=== PATIENT | female | born 1965 | race Caucasian/White ===

== ENCOUNTER 2016-12-14 12:05 | Emergency (ER) | payer MEDICAID ==
[~2016-12-14] VITALS: Ht 152.4 cm; Wt 74.8 kg
[~2016-12-14 12:05] MED LIST: ALBUTEROL0.09 MG/Ac IH; ASPI-COR81 M1 PO; ASPIRIN 81MG TA81 MG PO; ATIVAN GENERIC0.5 MG PO; BUTRANS10 MCG/HR TD; COMBIVENT INH14.7 GM IN; DUONEB 3 MG/3 ML3 ML IH; FENOFIBRATE48 MG PO; FENOFIBRATE54 MG PO; FLEXERIL10 MG PO; HYDROCODONE BIT1 T39 PO; HYOSCYAMIN0.125 MG/M PO; LEXAPRO 20 MG T20 MG PO; LIPITOR40 M1 PO; NORCO 325 MG-51 TAB PO; PERCOCET 10 MG1 EACH PO; PERCOCET1 TAB PO; PHENERGAN25 M3 PO; PLAQUENIL200 MG PO; POTASSIUM CHLO20 ME2 PO; PRAVASTATIN 20M20 MG PO; PRILOSEC40 MG PO; REQUIP1 MG PO; SYNTHROID 0.1M0.1 MG PO; TIZANIDINE HCL 44 MG PO; TRAMADOL 50MG T50 MG PO; XANAX2 MG PO; ZEBETA5 MG PO
[2016-12-14] MEDS ORDERED: SIMVASTATIN10 MG PO (12:22)
[2016-12-14] MEDS ORDERED: FUROSEMIDE 40MG40 M1 PO (12:22)
[2016-12-14] MEDS ORDERED: LEVOTHYROXIN0.175 MG PO (12:22)
[2016-12-14 12:35] LABS: HEMOGLOBIN 14.1 g/dL (12.2-16.2); LYMPH # 3.5 K/mm3 (0.7-4.5); LYMPH % 34.8 % (10-50.0)
--- OUTSIDE RECORDS SUMMARY | 2016-12-14 12:40 | External Medical Summary Rpt ---
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 UNSPECIFIED 08-29-2013 [facility] LIAM SENSORINEUR AL HEARING LOSS 60193 SENSORINEUR 08-29-2013 M[facility] AL HEARING LIAM LOSS BILATERAL 2459 UNSPECIFIED 07-24-2013 [facility] LIAM THYROIDITIS 26782 HYPOCALCEMI 06-28-2013 MADHURI IBR A 486 PNEUMONIA, 06-28-2013 [facility] IBR ORGANISM UNSPECIFIED 07722 LEUKOCYTOSI 06-27-2013 KILEY STELLA S UNSPECIFIED V103 PERSONAL 06-27-2013 [facility] HISTORY OF MALIGNANT NEOPLASM OF BREAST 4928 OTHER 06-23-2013 [facility] EMPHYSEMA 55551 UNSPECIFIED 06-18-2013 [facility] N 89703 OTHER ACUTE 06-09-2013 [facility] PAIN HOSPITAL 0088 INTESTINAL 06-05-2013 [facility] INFECTION DUE TO OTHER ORGANISM NEC V4589 OTHER 06-05-2013 [facility] POSTSURGICA L STATUS OTHER V8801 ACQUIRED 06-05-2013 [facility] ABSENCE OF BOTH CERVIX AND UTERUS 81976 TB OF 05-14-2013 SHELLEY ANDREW SKIN&SUBCUT ANEOUS CELLULAR TISSUE-OTH TEST 5739 UNSPECIFIED 05-05-2013 [facility] DISORDER [facility]OSP OF LIVER INC 61183 ABDOMINAL 05-05-2013 [place] [facility], SERV GENERALIZED FOUNDATION 4011 ESSENTIAL 03-25-2013 ARTHUR SOREN HYPERTENSIO N, BENIGN 77105 ASTHMA, 03-25-2013 [facility] UNSPECIFIED SABIANISM , HOSP UNSPECIFIED STATUS 21471 HEMATURIA 03-25-2013 [facility] JAYCOB UNSPECIFIED V1251 PERSONAL 03-25-2013 [facility] HISTORY, SABIANISM VENOUS HOSP THROMBOSIS AND EMBOLISM V5866 LONG-TERM 03-25-2013 [facility] USE OF [facility]IANISM [facility] 5952 OTHER 03-13-2013 MAHNAZ DIGGS CHRONIC SOREN CYSTITIS 64090 UNSPECIFIED 03-13-2013 MAHNAZ DIGGS SOREN ARTHROPATHY SITE UNSPECIFIED 6259 UNSPEC 03-06-2013 HARPEL KELLY SYMPTOM ASSOC W/FEMALE GENITAL ORGANS 19485 UNSPECIFIED 03-06-2013 HARPEL KELLY RETENTION OF URINE 72727 OBSTRUCTIVE 03-04-2013 [facility] CLINIC BRONCHITIS WITHOUT EXACERBAT 7243 SCIATICA 03-04-2013 [facility] CL[facility]IC 10300 OTHER 03-04-2013 [facility] ABNORMAL CLINIC GLUCOSE 6271 POSTMENOPAU 02-28-2013 [facility] BLEEDING INC 6101 DIFFUSE 02-25-2013 HARPEL KELLY CYSTIC MASTOPATHY 6272 SYMPTOMATIC 02-25-2013 HARPE[facility] KELLY MENOPAUSAL/ FEMALE CLIMACTERIC STATES 66301 SENILE 02-25-2013 HARPEL KELLY OSTEOPOROSI S V7231 ROUTINE 02-25-2013 HARPEL KELLY GYNECOLOGIC AL EXAMINATION V1279 PERSONAL 02-17-2013 [facility] EMERGENCY DISEASES SERVICES DIGESTIVE DISEASE 1120 CANDIDIASIS 02-05-2013 CANDIDA TERAN OF MOUTH 17356 OTHER 01-29-2013 TREZEVANT CHRONIC [facility] PAIN [facility] 485 BRONCHOPNEU 01-29-2013 CANDIDA TERAN MONIA ORGANISM UNSPECIFIED 5569 UNSPECIFIED 01-29-2013 CANDIDA TERAN ULCERATIVE COLITIS 5641 IRRITABLE 01-29-2013 TREZEVANT BOWEL [facility] SYNDROME [facility] 5693 HEMORRHAGE 01-29-2013 YOSELIN NURY OF RECTUM IGN AND ANUS 51003 DISORDER OF 01-29-2013 TREZEVANT BONE AND [facility] CARTILAGE [facility] UNSPECIFIED 89115 DIARRHEA 01-29-2013 CANDIDA TERAN 67627 REFLUX 12-09-2012 [facility]O MOIRA ESOPHAGITIS 2411 NONTOXIC 11-20-2012 ELIZABET YARON MULTINODULA R GOITER 7936 NONSPEC ABN 11-18-2012 [facility]O MO[facility] FINDNG RAD & OTH EXAM ABDOMINAL AREA 4439 UNSPECIFIED 10-10-2012 NOEMI DIGGS PERIPHERAL THO VASCULAR DISEASE 52189 STOMATITIS 09-24-2012 SAVANNAHANDRIYFuad PARUL AND MUCOSITIS UNSPECIFIED 71517 UNSPECIFIED 09-12-2012 CANDIDA TERAN CONJUNCTIVI TIS 2352 NEOPLASM 09-09-2012 [facility] BEHAVIOR INC STOMACH INTEST&RECT 4553 EXTERNAL 09-09-2012 CAMARILLO MOIRA HEMORRHOIDS WITHOUT MENTION COMP 5533 DIAPHRAGMAT 09-09-2012 CAM[facility] MOIRA DAMARIS W/O MENTION OBSTRUCTION /GANGREN 5780 HEMATEMESIS 09-09-2012 [facility] 7934 NONSPECIFIC 09-09-2012 CAMARILLO MOIRA ABN FINDING RAD & OTH EXAM GI TRACT 9594 INJURY 08-28-2012 [place] OTHER AND RADIOLOGY UNSPECIFIED ASSOCIAT HAND EXCEPT FINGER 69810 ABDOMINAL 08-19-2012 CAMARILLO MOIRA PAIN, LEFT LOWER QUADRANT 3559 MONONEURITI 08-14-2012 [facility] UNSPECIFIED SITE 4359 UNSPECIFIED 08-14-2012 M[facility] TRANSIENT LIAM CEREBRAL ISCHEMIA 99096 DYSPHAGIA 08-14-2012 [facility] V7260 LABORATORY 07-22-2012 [facility] UNSPECIFIED 03707 OTHER 07-12-2012 HW[facility] FUNCTIONAL JUS DISORDERS OF INTESTINE 5409 ACUTE 07-11-2012 MARSHALLESE APPENDICITI AMBULETT & S WITHOUT AMBULANC MENTION PERITONITIS 5699 UNSPECIFIED 07-11-2012 [place] DISORDER RADIOLOGY OF ASSOCIAT INTESTINE 7222 DISPLCMT 07-10-2012 [facility] INC, INTERVERT MOTOR VEHICLE EXAMINER DISC SITE [facility] UNS W/O HOS MYELOPATHY 7859 OTHER 07-10-2012 [facility] INC, SYMPTOMS MOTOR VEHICLE EXAMINER INVOLVING [facility] CARDIOVASCU HOS LAR SYSTEM 47456 OTHER 06-20-[facility] NASAL ASSOCIAT CAVITY AND SINUSES 7820 DISTURBANCE 06-20-2012 [facility] SENSATION V711 OBSERVATION 06-20-2012[facility] FOR [facility] SUSPECTED ASSOCIAT MALIGNANT NEOPLASM 217 BENIGN 06-19-2012 THADDEUS MIN NEOPLASM OF BREAST 6100 SOLITARY 06-19-2012 JODIE CORNELIO CYST OF BREAST 6102 FIBROADENOS 06-19-2012 [facility] BREAST 6108 OTHER 06-19-2012 [facility] BENIGN MAMMARY DYSPLASIAS V6709 FOLLOW-UP 06-19-2012 JODIE CORNELIO EXAMINATION FOLLOWING OTHER SURGERY 7840 HEADACHE 06-11-2012 WAT[facility] LIAM 3343 OTHER 06-10-2012 TAMLEBRON TERAN CEREBELLAR ATAXIA 3532 CERVICAL 06-10-2012 TAMLEBRON TERAN ROOT LESIONS NOT ELSEWHERE CLASSIFIED 01222 VISION 06-10-2012 CANDIDA TERAN IMPAIR BOTH EYES IMPAIR LEVEL NFS 4371 OTH 06-08-2012 [facility] INC, GENERALIZED MOTOR VEHICLE EXAMINER ISCHEMIC [facility] CEREBROVASC HOS ULAR DISEASE 77728 OTHER 06-08-2012 [facility] INC, ALTERATION MOTOR VEHICLE EXAMINER OF [facility] CONSCIOUSNE HOS SS V1588 PERSONAL 06-08-2012 [facility] INC, HISTORY OF MOTOR VEHICLE EXAMINER FALL [facility] HOS 57523 OCCL&STENOS 06-06-2012[facility] MX&BILAT RADIOLOGY PRECERBRL ASSOCIAT ART W/O INFARCT 7930 NONSPECIFIC 05-28-2012[facility] ABN FNDNG RADIOLOGY RAD & OTH ASSOCIAT EXM SKULL & HEAD 3688 OTHER 05-24-2012 [facility] INC, SPECIFIED MOTOR VEHICLE EXAMINER VISUAL [facility] DISTURBANCE HOS S 90690 HEAD 05-24-2012 [facility] INC, INJURY, MOTOR VEHICLE EXAMINER UNSPECIFIED [facility] HOS 7873 FLATULENCE 05-01-2012 [facility] INC, ERUCTATION MOTOR VEHICLE EXAMINER AND GAS [facility] PAIN HOS 85320 ING DAMARIS 04-24-2012 CANDIDA TERAN W/O MENTION OBST/GANGRE N UNILAT/[place] [address] UNSPEC 04-16-2012 ALLRAN JR VENTRAL STELLA DAMARIS W/O MENTION OBST/GANGRE N E9278 OTH 04-10-2012 PICKARD DARA OVEREXERT&S TRENUOUS&RE PETITIVE MVMNTS/LOAD S 73372 ABDOMINAL 04-01-2012 CANDIDA TERAN PAIN RIGHT UPPER QUADRANT 56228 ABDOMINAL 04-01-2012 CANDIDA TERAN PAIN, PERIUMBILIC 46436 NEOPLASM OF 03-26-2012 [place] UNCERTAIN RADIOLOGY BEHAVIOR [place] ASSOCI[place] KID[place] [address] INSOMNIA 03-21-2012 CANDIDA TERAN UNSPECIFIED 29140 OTHER 03-14-2012 CANDIDA TERAN CHRONIC ALLERGIC CONJUNCTIVI TIS 8470 NECK SPRAIN 01-01-2012 [facility] 25348 EARLY 12-29-2011 [facility] 3531 LUMBOSACRAL 12-28-2011 RICHARD GRE PLEXUS LESIONS E9352 OTH 12-28-2011 RICHARD GRE OPIATES&REL NARCOTICS CAUS ADVRS EFF TX USE V5883 ENCOUNTER 12-28-2011 RICHARD GRE FOR THERAPEUTIC DRUG MONITORING V7109 OBSERVATION 12-28-2011 MILLENIUM OF OTHER LABORATORIE SUSPECTED S OF CA MENTAL CONDITION 6279 UNSPECIFIED 12-21-2011 HALEY HOLM MENOPAUSAL& POSTMENOPAU EARNEST DISORDER 34301 HYPERSOMNIA 11-21-2011 [facility] INC, WITH SLEEP MOTOR VEHICLE EXAMINER APNEA [facility] UNSPECIFIED HOS 15868 OSTEOARTHRO 11-07-2011 CANDIDA TERAN S UNSPEC WHETHER GEN/LOC SHLDR REGION 69548 OSTEOARTHRO 11-07-2011 CANDIDA TERAN SIS UNSPEC WHETHER GEN/LOC LOWER LEG 7177 CHONDROMALA 11-06-2011 PETTEY JAM ISIS OF [place] 03712 PLICA 11-06-2011 PETTEY JAM SYNDROME 07475 CHONDROMALA 11-03-2011 PETTEY JAM ISIS 7871 HEARTBURN 10-25-2011 JUAN-CO NKLIN NETO 10996 UNSPECIFIED 10-04-2011 [facility] INC, SLEEP MOTOR VEHICLE EXAMINER APNEA [facility] HOS 5368 DYSPEPSIA&O 09-25-2011 [facility] INC, THER SPEC MOTOR VEHICLE EXAMINER DISORDERS [facility] KE[facility] FUNCTION HOS STOMACH 5589 OTH&UNSPEC 09-25-2011 [facility] INC, NONINFECTIO MOTOR VEHICLE EXAMINER US [facility]SEL KE[facility] GASTROENTER HOS ITIS&COLITI S 2114 BENIGN 09-19-2011 PATHOLOGY & NEOPLASM OF CYTOLOGY RECTUM AND LAB ANAL CANAL 7821 RASH AND 09-14-2011 TAMLEBRON TERAN OTHER NONSPECIFIC SKIN ERUPTION 5789 UNSPECIFIED 08-23-2011 BONNIE HEMORRHAGE NKLIN NETO OF GASTROINTES TINAL TRACT 31733 SWELLING OF 08-08-2011 [place] [facility] RADIOLOGY ASSOCIAT 63316 CONTUSION 08-08-2011 [facility] 9593 INJURY 08-08-2011 [place] OTHER&UNSPE RADIOLOGY CIFIED ASSOCIAT [employer]BOW FOREARM&WRI ST 97892 REGULAR 07-03-2011 JESSE ASTIGMATISM GRE 7092 SCAR 05-31-2011 [facility] AND FIBROSIS OF SKIN 29638 INCONCLUSIV 05-31-2011 [place] [facility] E MAMMOGRAM SERV FOUNDATIO V134 PERSONAL 05-23-2011 LUIS DOTY HISTORY OF ARTHRITIS 9597 INJURY 05-06-2011 GISSEL KEYES OTHER&UNSPE HOSPITAL CIFIED KNEE LEG ANKLE&FOOT E8490 PLACE OF 05-06-2011 GISSEL KEYES OCCURRENCE, HOSPITAL HOME E8859 FALL FROM 05-06-2011 GISSEL KEYES OTHER HOSPITAL SLIPPING TRIPPING OR STUMBLING E8881 FALL 05-06-2011 [facility] KEYSE RESULTING HOSPITAL IN STRIKING AGAINST OTHER OBJECT 3540 CARPAL 04-07-2011 [facility] [place] TUNNEL ORTHOPAEDIC SYNDROME S PLC 94923 UNSPEC 04-07-2011 [facility] [place] DISORDERS ORTHOPAEDIC BURSAE&TEND S PLC ONS SHOULDER REGION 591 HYDRONEPHRO 03-24-2011 [facility] SIS SWAPNA 5951 CHRONIC 03-24-2011 [facility] CYSTITIS 70454 MICROSCOPIC 03-24-2011 [facility] 7906 OTHER 03-17-2011 [facility] ABNORMAL [facility] BLOOD HOLDING CHEMISTRY 96931 UNS ADVRS 03-17-2011 LAB [facility] EFF UNS RX AMERIC MEDICINAL&B HOLDING IOLOGICAL SBSTNC 37640 INCOMPLETE 02-17-2011 [facility] BLADDER SWAPNA EMPTYING 41359 CYSTOCELE 01-27-2011 ARLENE KEYES WITHOUT HOSPITAL MENTION UTERINE PROLAPSE MIDLN 6256 FEMALE 01-27-2011 [facility] STRESS HOSPITAL INCONTINENC E 18855 PRUNE BELLY 01-18-2011 [facility] 38619 CHRONIC 01-18-2011 LAB [facility] FATIGUE AMERIC SYNDROME HOLDING 5939 UNSPECIFIED 01-17-2011 [place] DISORDER RADIOLOGY OF KIDNEY ASSOCIAT AND URETER 93436 GROSS 01-17-2011 [facility] HEMATURIA HOSPITAL 5982 POSTOPERATI 01-13-2011 [facility] VE URETHRAL SWAPNA STRICTURE 85923 MIXED 01-11-2011 [facility] INCONTINENC HOSPITAL E URGE AND STRESS 38388 URGE 01-10-2011 [facility] INCONTINENC SWAPNA E 30556 COMPLETE 12-20-2010 [facility] [place] RUPTURE OF ORTHOPAEDIC ROTATOR S PLC CUFF 7919 OTHER 12-13-2010 [facility] NONSPECIFIC HOSPITAL FINDING EXAMINATION OF URINE 34943 TRIGGER 12-05-2010 [facility] [place] FINGER ORTHOPAEDIC S PLC 7102 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 V1581 PERS HX 11-01-2010 RINALDINI NONCOMPLIAN MELINDA CE W/MED TX PRS HAZARDS HLTH 90742 SPRAIN AND 10-20-2010 [employer] STRAIN OF UNSPECIFIED SITE OF WRIST 7226 DEGENERATIO 10-18-2010 RINALDINI N MELINDA INTERVERTEB RAL DISC SITE UNSPEC 7231 CERVICALGIA 09-26-2010 [facility] IMAGING ASS 50227 UNSPECIFIED 09-21-2010 [facility] VIRAL HOSPITAL INFECTION IN CCE & UNS SITE 94175 DEHYDRATION 09-21-2010 [facility] HOSPITAL 3384 CHRONIC 09-21-2010 [facility] PAIN NEUROLOGY SYNDROME CENTER SYLVIA 28596 SPRAIN AND 09-20-2010 RINALDINI STRAIN OF MELINDA UNSPECIFIED SITE OF HAND V571 OTHER 07-20-2010 [facility] PHYSICAL HOSPITAL THERAPY 72754 UNSPECIFIED 07-13-2010 [place] [facility] ABNORMAL SERV MAMMOGRAM FOUNDATIO 33921 LUMP OR 06-27-2010 [place] [facility] [place] IN SERV BREAST FOUNDATIO 41769 MAMMOGRAPHI 06-21-2010 [facility] MICROCALCIF ICATION 5272 SIALOADENIT 06-16-2010 RINALDINI IS MELINDA 22126 OTHER 06-16-2010 RINALDINI ABNORMAL MELINDA FINDING RADIOLOGICA L EXAM BREAST 64429 MASTODYNIA 05-24-2010 [facility] CYPRESS 9160 HIP THI 05-19-2010 RINALDINI LEG&ANK MELINDA ABRASION/FR ICION BURN W/O INF 70229 VOLUME 04-12-2010 RINALDINI DEPLETION MELINDA UNSPECIFIED 95735 DIVERTICULI 03-25-2010 RINALDINI TIS OF MELINDA COLON 80892 DIVERTICULO 03-17-2010 RINALDINI SIS OF MELINDA COLON 5931 HYPERTROPHY 03-17-2010 [place] OF KIDNEY RADIOLOGY ASSOCIAT 5968 OTHER 03-17-2010 [place] SPECIFIED RADIOLOGY DISORDERS ASSOCIAT OF BLADDER 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 EARNEST STATUS V8281 SPECIAL 07-23-2009 DORIAN OJEDA M.D.P.S.C. OSTEOPOROSI S 64511 SQUAMOUS 06-07-2009 [place] INST FOR BLEPHARITIS EYEHLTH & SURG PSC 28553 UNSPECIFIED 06-07-2009 [place] [facility]ST FOR TEAR FILM EYEHLTH & INSUFFICIEN SURG PSC CY 3569 UNSPEC 05-19-2009 JENNIFER HEREDIT&IDI KWADWO ALVARADO M.D.P.S.C. PERIPHERAL NEUROPATHY V570 CARE 05-13-2009 G[facility] INVOLVING HOSPITAL BREATHING EXERCISES V5862 LONG-TERM 05-13-2009 [facility] (CURRENT) HOSPITAL USE OF ANTIBIOTICS 91563 CHRONIC 05-05-2009 ZENON, OBSTRUCTIVE DEEPAK ASTHMA WITH EXACERBATIO N 4580 ORTHOSTATIC 05-04-2009 [facility] HOSPITAL HYPOTENSION 12847 OTHER 05-04-2009 [facility] CONVULSIONS HOSPITAL 7892 SPLENOMEGAL 05-04-2009 [place] Y [facility] ASSOC[facility]ATES PSC 6966 UNSPECIFIED 04-11-2009 [facility] MA PRURITIC HOSPITAL DISORDER 9134 ELB 04-11-2009 [facility] FORARM&WRST HOSPITAL INSECT BITE NONVENOMOUS W/O INF 8059 OPN FX UNS 03-15-2009 RINALDINI, PART VERT DEEPAK COLUMN W/O SP CRD INJURY 05533 PAIN IN 03-09-2009 KATJA C JOINT, TYRONE ANKLE AND FOOT 65770 SPONDYLOSIS 01-18-2009 [place] [facility] UNSPEC SERV SITE W/O FOUNDATIO MENTION MYELOPATHY 56516 PATHOLOGIC 01-07-2009 [facility] FRACTURE OF HOSPITAL VERTEBRAE 08673 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 REGION SPRAIN&STRA IN V5427 AFTERCARE 01-07-2009 [facility] HEALING HOSPITAL PATHOLOGIC FRACTURE VERTEBRAE 4658 ACUTE URIS 12-15-2008 RINALDINI, OF OTHER DEEPAK MULTIPLE SITES 91342 DISPLCMT 11-30-2008 [place] LUMBAR [facility] INTERVERT ASSOCIATES DISC W/O PSC MYELOPATHY 87236 STRESS 11-30-2008 [facility] FRACTURE OF HOSPITAL OTHER BONE 12512 ATHEROSCLER 11-06-2008 [facility] ART INC EXTREMITIES UNSPEC 514 PULMONARY 09-28-2008 [place] CONGESTION [facility] AND ASSOCIATES HYPOSTASIS PSC 2165 BENIGN 07-31-2008 PATHOLOGY & NEOPLASM OF CYTOLOGY SKIN OF LAB TRUNK EXCEPT SCROTUM E9064 BITE OF 07-31-2008 PATHOLOGY & NONVENOMOUS CYTOLOGY ARTHROPOD LAB 7079 CHRONIC 07-30-2008 [facility] ULCER OF HOSPITAL UNSPECIFIED SITE 7099 UNSPECIFIED 07-30-2008 RINALDINI, DISORDER DEEPAK OF SKIN&SUBCUT ANEOUS TISSUE 7210 CERVICAL 07-16-2008 [place] SPONDYLOSIS RADIOLOGY WITHOUT ASSOCIATES MYELOPATHY PSC V1272 PERSONAL 07-13-2008 [place] [facility] HISTORY OF SERV COLONIC FOUNDATIO POLYPS 98229 OTHER 06-18-2008 RINALDINI, SPECIFIED DEEPAK CIRCULATORY SYSTEM DISORDERS [id number] UNSPECIFIED 05-02-2008 [facility] ESOPHAGITIS [id number] POLYURIA 04-09-2008 [facility] [id number] OBESITY, 11-04-2007 [facility] UNSPECIFIED [facility] 47430 GEN 11-04-2007 RINTORSTENINI, OSTEOARTHRO DEEPAK SIS INVOLVING MULTIPLE SITES V074 HORMONE 08-23-2007 [facility] [place] V6700 FOLLOW-UP 08-23-2007 WOMEN'S EXAMINATION HEALTH [facility]LLOWING [facility] Medications Na ND Rx Da Fi Fi Am Da Di Ph RX Ph St me C No te ll ll ou ys ag ar # ys at rm s nt no ma ic us Or Da si cy ia de te s n re d ES 65 04 04 30 30 00 TO Ac CI 86 -0 -2 .0 00 TA ti TA 20 5- 8- 00 07 L ve LO 37 20 20 61 CA RI 50 17 17 16 RE AM 5 71 PH 20 AR MA MG CY TA #2 BL ET RO 43 04 04 30 30 00 TO Ac PI 54 -0 -2 .0 00 TA ti NI 70 3- 8- 00 07 L ve RO 27 20 20 60 CA LE 11 17 17 36 RE 0 28 HC PH L AR 2 MA MG CY TA #2 BL ET PO 62 04 04 52 30 00 TO Ac LY 17 -0 -2 7. 00 TA ti ET 50 3- 8- 00 07 L ve HY 44 20 20 0 62 CA LE 23 17 17 46 RE NE 1 73 PH GL AR YC MA OL CY 33 #2 50 PO WD SI 68 04 04 30 30 00 TO Ac MV 38 -0 -2 .0 00 TA ti 20 3- 8- 00 07 L ve TA 06 20 20 60 CA TI 60 17 17 36 RE N 5 30 10 PH AR MG MA CY TA BL #2 ET PO 00 03 04 60 30 00 TO Ac TA 78 -3 -2 .0 00 TA ti SS 11 0- 1- 00 07 L ve IU 52 20 20 62 CA M 60 17 17 41 RE CL 1 33 PH ER AR MA 10 CY ME #2 Q TA BL ET BR 00 03 04 60 30 00 TO Ac EO 17 -3 -2 .0 00 TA ti 30 0- 1- 00 07 L ve EL 88 20 20 62 CA LI 21 17 17 41 RE PT 0 28 A PH 20 AR 0- MA 25 CY MC #2 G IN H GA 43 03 04 40 1 00 TO Ac 38 -3 -2 00 00 TA ti LY 60 0- 1- .0 07 L ve TE 09 20 20 00 62 CA -G 01 17 17 41 RE 9 30 SO PH RAUL AR TI MA ON CY #2 LE 00 03 04 30 30 00 TO Ac VO 37 -3 -2 .0 00 TA ti TH 81 0- 1- 00 07 L ve YR 81 20 20 62 CA OX 71 17 17 41 RE IN 0 27 E PH 17 AR 5 MA MC CY G TA #2 BL ET FU 00 03 04 30 30 00 TO RO 37 -3 -2 .0 00 TA ti SE 80 0- 1- 00 07 L ve WV 21 20 20 62 CA DE 61 17 17 41 RE 0 32 40 PH AR MG MA CY TA BL #2 ET ES 00 03 04 30 30 00 TO OM 37 -2 -1 .0 00 TA ti EP 82 0- 4- 00 07 L ve RA 35 20 20 62 CA ZO 19 17 17 17 RE LE 3 42 PH MA AR G MA DR CY 40 #2 MG CA P DI 00 03 04 12 30 00 TO CY 37 -1 -0 0. 00 TA ti CL 81 7- 7- 00 07 L ve OM 62 20 20 0 62 CA IN 00 17 17 14 RE E 1 33 20 PH AR MG MA CY TA BL #2 ET ON 00 03 04 24 8 00 TO DA 78 -1 -0 .0 00 TA ti NS 15 7- 7- 00 07 L ve ET 23 20 20 62 CA RO 96 17 17 14 RE N 4 34 OD PH T AR 8 MA MG CY TA #2 BL ET TR 16 03 04 90 30 00 TO AM 71 -1 -0 .0 00 TA ti AD 40 8- 7- 00 07 L ve OL 48 20 20 60 CA 10 17 17 11 RE HC 2 41 L PH 50 AR MA MG CY TA #2 BL ET LO 00 03 03 90 30 00 TO RA 59 -1 -3 .0 00 TA ti ZE 10 0- 1- 00 07 L ve PA 24 20 20 61 CA M 11 17 17 16 RE 1 0 76 MG PH AR TA MA BL CY ET #2 WV 00 03 03 30 30 00 TO RT 09 -1 -3 .0 00 TA ti AZ 37 0- 1- 00 07 L ve AP 20 20 20 61 CA IN 65 17 17 16 RE E 6 77 15 PH AR MG MA CY TA BL #2 ET FU 00 03 03 30 30 00 TO RO 37 -0 -2 .0 00 TA ti SE 80 1- 4- 00 07 L ve WV 20 20 20 61 CA DE 81 17 17 00 RE 0 40 20 PH AR MG MA CY TA BL #2 ET ES 65 03 03 30 30 00 TO CI 86 -0 -2 .0 00 TA ti TA 20 1- 4- 00 07 L ve LO 37 20 20 60 CA RI 50 17 17 36 RE AM 5 29 PH 20 AR MA MG CY TA #2 BL ET LE 00 03 03 30 30 00 TO Ac VO 37 -0 -2 .0 00 TA ti TH 81 1- 4- 00 07 L ve YR 80 20 20 59 CA OX 91 17 17 90 RE IN 0 97 E PH 10 AR 0 MA MC CY G TA #2 BL ET CY 00 03 03 90 30 00 TO CL 37 -0 -2 .0 00 TA ti OB 80 1- 4- 00 07 L ve EN 75 20 20 60 CA ZA 11 17 17 36 RE RI 0 31 IN PH E AR 10 MA CY MG #2 TA BL ET RO 43 03 03 30 30 00 TO PI 54 -0 -2 .0 00 TA ti NI 70 1- 4- 00 07 L ve RO 27 20 20 60 CA LE 11 17 17 26 RE 0 92 HC PH L AR 2 MA MG CY TA #2 BL ET FL 00 03 03 15 30 00 TO ON 13 -0 -2 .8 00 TA ti 50 1- 4- 00 07 L ve E 57 20 20 60 CA AL 60 17 17 36 RE LE 3 33 RG PH Y AR RL MA F CY 50 #2 MC G SP R SP 00 03 03 30 30 00 TO IR 59 -0 -2 .0 00 TA ti IV 70 1- 4- 00 07 L ve A 07 20 20 60 CA 18 54 17 17 21 RE 1 50 MC PH G AR CP MA -H CY AN DI #2 PEREZ LE R 69 02 03 8. 28 00 TO T 45 -2 -1 00 00 TA ti D2 20 2- 7- 0 07 L ve 15 20 20 55 CA 1. 12 17 17 52 RE 25 0 59 PH MG AR MA (5 CY 0, 00 #2 0 UN IT ) VE 00 02 03 18 16 00 TO NT 17 -2 -1 .0 00 TA ti OL 30 2- 7- 00 07 L ve IN 68 20 20 59 CA 22 17 17 56 RE HF 0 91 A PH 90 AR MA MC CY G IN #2 PEREZ LE R DU 00 02 03 13 30 00 TO LE 08 -2 -1 .0 00 TA ti RA 54 2- 7- 00 07 L ve 61 20 20 60 CA 20 00 17 17 07 RE 0 1 88 MC PH G/ AR 5 MA MC CY G IN #2 PEREZ LE R LO 00 02 03 90 30 00 TO RA 59 -0 -1 .0 00 TA ti ZE 10 7- 0- 00 07 L ve PA 24 20 20 61 CA M 11 17 17 16 RE 1 0 76 MG PH AR TA MA BL CY ET #2 ES 31 02 03 30 30 00 TO Ac OM 72 -1 -1 .0 00 TA ti EP 20 0- 0- 00 07 L ve RA 57 20 20 60 CA ZO 31 17 17 07 RE LE 0 89 PH MA AR G MA DR CY 40 #2 MG CA P WV 00 02 03 30 30 00 TO Ac RT 09 -0 -1 .0 00 TA ti AZ 37 7- 0- 00 07 L ve AP 20 20 20 61 CA IN 65 17 17 16 RE E 6 77 15 PH AR MG MA CY TA BL #2 ET LE 00 02 03 30 30 00 TO Ac VO 37 -1 -1 .0 00 TA ti TH 81 5- 0- 00 07 L ve YR 81 20 20 61 CA OX 31 17 17 38 RE IN 0 98 E PH 12 AR 5 MA MC CY G TA #2 BL ET TR 16 02 03 90 30 00 TO Ac AM 71 -1 -1 .0 00 TA ti AD 40 4- 0- 00 07 L ve OL 48 20 20 60 CA 10 17 17 11 RE HC 2 41 L PH 50 AR MA MG CY TA #2 BL ET SI 68 02 03 30 30 00 TO Ac MV 38 -1 -1 .0 00 TA ti 20 4- 0- 00 07 L ve TA 06 20 20 60 CA TI 60 17 17 07 RE N 5 87 10 PH AR MG MA CY TA BL #2 ET RO 43 01 02 30 30 00 TO Ac PI 54 -3 -2 .0 00 TA ti NI 70 1- 4- 00 07 L ve RO 27 20 20 60 CA LE 11 17 17 26 RE 0 92 HC PH L AR 2 MA MG CY TA #2 BL ET FL 00 01 02 15 30 00 TO Ac ON 13 -3 -2 .8 00 TA ti 50 1- 4- 00 07 L ve E 57 20 20 60 CA AL 60 17 17 36 RE LE 3 33 RG PH Y AR RL MA F CY 50 #2 MC G SP R VE 00 01 02 18 16 00 TO Ac NT 17 -3 -2 .0 00 TA ti OL 30 1- 4- 00 07 L ve IN 68 20 20 59 CA 22 17 17 56 RE HF 0 91 A PH 90 AR MA MC CY G IN #2 PEREZ LE R CY 00 01 02 90 30 00 TO CL 37 -3 -2 .0 00 TA ti OB 80 1- 4- 00 07 L ve EN 75 20 20 60 CA ZA 11 17 17 36 RE RI 0 31 IN PH E AR 10 MA CY MG #2 TA BL ET FU 00 01 02 30 30 00 TO RO 78 -3 -2 .0 00 TA ti SE 11 1- 4- 00 07 L ve WV 81 20 20 61 CA DE 81 17 17 00 RE 0 40 20 PH AR MG MA CY TA BL #2 ET SP 00 02 30 30 00 TO IR 59 -3 -2 .0 00 TA ti IV 70 1- 4- 00 07 L ve A 07 20 20 60 CA 18 54 17 17 21 RE 1 50 MC PH G AR CP MA -H CY AN DI #2 PEREZ LE R EN 58 01 02 3. 28 00 AC BR 40 -3 -2 91 00 CR ti EL 60 0- 4- 9 00 ED ve 43 20 20 87 O 50 50 17 17 12 HE 4 60 AL MG TH /M L GR SY OU RI P, NG E IN C. ES 65 01 02 30 30 00 TO CI 86 -3 -2 .0 00 TA ti TA 20 1- 4- 00 07 L ve LO 37 20 20 60 CA RI 50 17 17 36 RE AM 5 29 PH 20 AR MA MG CY TA #2 BL ET DU 00 01 02 13 30 00 TO LE 08 -1 -1 .0 00 TA ti RA 54 4- 0- 00 07 L ve 61 20 20 60 CA 20 00 17 17 07 RE 0 1 88 MC PH G/ AR 5 MA MC CY G IN #2 PEREZ LE R LE 00 02 30 30 00 TO VO 37 -1 -1 .0 00 TA ti TH 81 4- 0- 00 07 L ve YR 80 20 20 59 CA OX 91 17 17 90 RE IN 0 97 E PH 10 AR 0 MA MC CY G TA #2 BL ET ES 31 02 30 30 00 TO OM 72 -1 -1 .0 00 TA ti EP 20 4- 0- 00 07 L ve RA 57 20 20 60 CA ZO 31 17 17 07 RE LE 0 89 PH MA AR G MA DR CY 40 #2 MG CA P SI 55 01 02 30 30 00 TO MV 11 -1 -1 .0 00 TA ti 10 4- 0- 00 07 L ve TA 19 20 20 60 CA TI 83 17 17 07 RE N 0 87 10 PH AR MG MA CY TA BL #2 ET CY 00 01 02 90 30 00 TO Ac CL 37 -0 -0 .0 00 TA ti OB 80 3- 3- 00 07 L ve EN 75 20 20 60 CA ZA 11 17 17 36 RE RI 0 31 IN PH E AR 10 MA CY MG #2 TA BL ET LO 00 01 02 90 30 00 TO Ac RA 59 -0 -0 .0 00 TA ti ZE 10 4- 3- 00 07 L ve PA 24 20 20 60 CA M 11 17 17 38 RE 1 0 47 MG PH AR TA MA BL CY ET #2 AZ 50 01 02 6. 5 00 TO Ac IT 11 -0 -0 00 00 TA ti HR 10 3- 3- 0 07 L ve OM 78 20 20 60 CA YC 75 17 17 36 RE IN 1 35 PH 25 AR 0 MA MG CY TA #2 BL ET FU 00 01 02 30 30 00 TO Ac RO 78 -0 -0 .0 00 TA ti SE 11 3- 3- 00 07 L ve WV 81 20 20 60 CA DE 81 17 17 36 RE 0 34 20 PH AR MG MA CY TA BL #2 ET VE 00 01 02 18 16 00 TO Ac NT 17 -0 -0 .0 00 TA ti OL 30 3- 3- 00 07 L ve IN 68 20 20 60 CA 22 17 17 36 RE HF 0 26 A PH 90 AR MA MC CY G IN #2 PEREZ LE R ES 65 01 02 30 30 00 TO Ac CI 86 -0 -0 .0 00 TA ti TA 20 3- 3- 00 07 L ve LO 37 20 20 60 CA RI 50 17 17 36 RE AM 5 29 PH 20 AR MA MG CY TA #2 BL ET FL 00 01 02 15 30 00 TO Ac ON 13 -0 -0 .8 00 TA ti 50 3- 3- 00 07 L ve E 57 20 20 60 CA AL 60 17 17 36 RE LE 3 33 RG PH Y AR RL MA F CY 50 #2 MC G SP R NY 50 01 02 48 [address] 38 -0 -0 0. 00 TA ti AT 30 3- 3- 00 07 L ve IN 58 20 20 0 60 CA 71 17 17 36 RE 10 6 36 0, PH 00 AR 0 MA UN CY IT /M #2 L MARKS SP TR 16 12 01 90 30 00 TO Ac AM 71 -2 -2 .0 00 TA ti AD 40 0- 0- 00 07 L ve OL 48 20 20 60 CA 10 16 17 11 RE HC 2 41 L PH 50 AR MA MG CY TA #2 BL ET RO 43 12 30 30 00 TO PI 54 -2 -2 .0 00 TA ti NI 70 8- 0- 00 07 L ve RO 27 20 20 60 CA LE 11 16 17 26 RE 0 92 HC PH L AR 2 MA MG CY TA #2 BL ET EN 58 12 01 3. 28 00 AC Ac BR 40 -2 -2 91 00 CR ti EL 60 7- 0- 9 00 ED ve 43 20 20 87 O 50 50 16 17 12 HE 4 60 AL MG TH /M L GR SY OU RI P, NG E IN C. SP 00 12 30 30 00 TO IR 59 -2 -2 .0 00 TA ti IV 70 7- 0- 00 07 L ve A 07 20 20 60 CA 18 54 16 17 21 RE 1 50 MC PH G AR CP MA -H CY AN DI #2 PEREZ LE R SI 55 12 09 11 30 00 TO MV 11 -1 -1 .0 00 TA ti 10 9- 3- 00 07 L ve TA 19 20 20 60 CA TI 83 16 17 07 RE N 0 87 10 PH AR MG MA CY TA BL #2 ET DU 00 12 01 13 30 00 TO LE 08 -1 -1 .0 00 TA ti RA 54 9- 3- 00 07 L ve 61 20 20 60 CA 20 00 16 17 07 RE 0 1 88 MC PH G/ AR 5 MA MC CY G IN #2 PEREZ LE R ES 31 12 30 30 00 TO OM 72 -1 -1 .0 00 TA ti EP 20 9- 3- 00 07 L ve RA 57 20 20 60 CA ZO 31 16 17 07 RE LE 0 89 PH MA AR G MA DR CY 40 #2 MG CA P LE 00 12 30 30 00 TO VO 37 -1 -0 .0 00 TA ti TH 81 2- 9- 00 07 L ve YR 80 20 20 59 CA OX 91 16 17 90 RE IN 0 97 E PH 10 AR 0 MA MC CY G TA #2 BL ET 16 09 10 10 36 30 YO 24 No Ac 25 -2 -2 0. UR 18 t ti 20 6- 8- 00 0 Av ve 54 20 20 0 PH ai 76 11 11 AR la 6 MA bl CY e CL 00 10 10 2 45 30 CA 68 TA Ac ON 22 -1 -1 .0 RL 72 MA ti AZ 83 1- 1- 00 IS 22 RE ve EP 00 20 20 LE N AM 45 11 [address] LEROY UG T MG CO TA MP BL AN ET Y CI 57 10 10 2 15 30 CA 68 TA Ac TA 66 -1 -1 .0 RL 72 MA ti LO 40 1- 1- 00 IS 24 RE ve RI 50 20 20 LE N AM 91 [address] LEROY HB UG T R 40 CO MP MG AN Y TA BL ET 00 07 09 3 14 20 CA 68 No Ac 59 -2 -3 .6 RL 40 t ti 70 5- 0- 99 IS 06 Av ve 01 20 20 LE ai 31 11 11 la 4 bl UG e CO MP AN Y KE 00 09 09 0 20 5 CA 68 TA Ac TO 09 -2 -2 .0 RL 65 MA ti RO 30 6- 6- 00 IS 74 RE ve LA 31 20 20 LE N C 40 11 [address] LEROY UG T MG CO TA MP BL AN ET Y 16 09 09 10 36 30 YO 24 No Ac 25 -2 -2 0. UR 18 t ti 20 6- 6- 00 0 Av ve 54 20 20 0 PH ai 76 11 11 AR la 6 MA bl CY e CL 16 09 09 0 90 30 CA 68 TA Ac ON 72 -1 -1 .0 RL 62 MA ti AZ 90 6- 6- 00 IS 23 RE ve EP 13 20 20 LE N AM 60 [address] LEROY 0. UG T 5 MG CO MP TA AN BL Y ET 00 07 09 3 14 20 CA 68 No Ac 59 -2 -1 .6 RL 40 t ti 70 5- 2- 99 IS 06 Av ve 01 20 20 LE ai 31 [address] bl UG e CO MP AN Y CI 57 09 09 0 15 30 CA 68 TA Ac TA 66 -0 -0 .0 RL 58 MA ti LO 40 7- 7- 00 IS 20 RE ve RI 50 20 20 LE N AM 91 [address] LEROY HB UG T R 40 CO MP MG AN Y TA BL ET CI 57 09 09 0 2. 4 CA 68 TA Ac TA 66 -0 -0 00 RL 56 MA ti LO 40 1- 1- 0 IS 20 RE ve RI 50 20 20 LE N AM 88 [address] LEROY HB UG T R 20 CO MP MG AN Y TA BL ET RI 37 08 08 3 56 28 CA 68 TA Ac IL 00 -2 -2 .0 RL 54 MA ti OS 00 6 6 00 IS 12 RE ve EC 45 20 20 LE N 50 11 [address] LEROY C UG T 20 .6 CO MP MG AN Y TA BL ET 16 09 08 10 36 30 YO 22 No Ac 25 -2 -2 0. UR 07 t ti 20 2- 5- 00 4 Av ve 54 20 20 0 PH ai 76 10 11 AR la 6 MA bl CY e 00 07 08 3 14 20 CA 68 No Ac 59 -2 -2 .6 RL 40 t ti 70 5- 4 99 IS 06 Av ve 01 20 20 LE ai 31 [address] kylie UG e CO MP AN Y CL 00 07 08 2 60 30 CA 68 TA Ac ON 09 -2 -2 .0 RL 40 MA ti AZ 30 5- 4- 00 IS 75 RE ve EP 83 20 20 LE N AM 20 [address] LEROY 0. UG T 5 MG CO MP TA AN BL Y ET 60 08 08 0 30 8 CA 68 CA Ac 95 -1 -1 .0 RL 47 BA ti 10 2- 2- 00 IS 71 LL ve 79 20 20 LE ER 77 [address] RA SHER MO N CO L MP AN Y CI 16 08 08 0 14 7 CA 68 CA Ac RI 71 -1 -1 .0 RL 47 BA ti OF 40 2- 2- 00 IS 72 LL ve LO 65 20 20 LE ER XA 20 11 [address] RA Fuad SHER MO HC N L CO L 50 MP 0 AN MG Y TA B 00 07 07 3 14 20 CA 68 No Ac 59 -2 -2 .6 RL 40 t ti 70 5- 5 99 IS 06 Av ve 01 20 20 LE ai 31 [address] espinal UG e CO MP AN Y CL 00 07 07 2 60 30 CA 68 TA Ac ON 09 -2 -2 .0 RL 40 MA ti AZ 30 5- 5- 00 IS 75 RE ve EP 83 20 20 LE N AM 20 [address] LEROY 0. UG T 5 MG CO MP TA AN BL Y ET RI 00 07 07 2 30 30 CA 68 TA Ac OM 78 -2 -2 .0 RL 40 MA ti ET 11 - 5- 00 IS 77 RE ve PEREZ 83 20 20 LE N ZI 01 11 [address] LEROY UG T 25 CO MG MP AN TA Y BL ET 00 04 07 3 14 20 CA 68 No Ac 59 -1 -0 .6 RL 03 t ti 70 IS 11 Av ve 01 20 20 LE ai 31 [address] bl UG e CO MP AN Y 16 09 07 10 36 30 YO 22 No Ac 25 -2 -0 0. UR 07 t ti 20 2- 5- 00 4 Av ve 54 20 20 0 PH ai 76 10 11 AR la 6 MA bl CY e RI 37 05 06 1 56 28 CA 68 No Ac IL 00 -2 -2 .0 RL 14 t ti OS 00 0- 7 00 IS 89 Av ve EC 45 20 20 LE ai 50 11 [address] bl C UG e 20 .6 CO MP MG AN Y TA BL ET CL 00 06 06 0 60 30 CA 68 TA Ac ON 09 -2 -2 .0 RL 28 MA ti AZ 30 IS 43 RE ve EP 83 20 20 LE N AM 20 [address] MARIAA 0. UG T 5 MG CO MP TA AN BL Y ET TI 00 05 06 1 40 20 CA 68 TA Ac ZA 18 -1 -2 .0 RL 12 MA ti NI 54 6- 0- 00 IS 65 RE ve DI 40 20 20 LE N NE 05 [address] MARIAA HC UG T L 4 CO MG MP AN TA Y BL ET CI 16 06 06 0 14 7 CA 68 CA Ac RI 71 -1 -1 .0 RL 24 BA ti OF 40 IS 89 LL ve LO 65 20 20 LE ER XA 20 11 [address] RA N UG MO HC N L CO L 50 MP 0 AN MG Y TA B EN 60 06 06 0 30 7 CA 68 CA Ac DO 95 -1 -1 .0 RL 24 BA ti CE 10 IS 90 LL ve T 71 20 20 LE ER 10 27 11 11 O -[address] 25 UG MO N MG CO L MP TA AN BL Y ET 00 04 06 3 14 20 CA 68 No Ac 59 -1 -1 .6 RL 03 t ti 70 99 IS 11 Av ve 01 20 20 LE ai 31 [address] kylie UG e CO MP AN Y OX 00 06 06 5 90 30 CA 68 CA Ac YB 60 -0 -0 .0 RL 19 BA ti UT 34 IS 81 LL ve YN 97 20 20 LE ER IN 52 [address] AVALOS UG MO MG N CO L TA MP BL AN ET Y CI 16 05 05 0 14 7 CA 68 CA Ac RI 71 -2 -2 .0 RL 17 BA ti OF 40 7- 7- 00 IS 23 LL ve LO 65 20 20 LE ER XA 20 11 [address] AVALOS N UG MO HC N L CO L 50 MP 0 AN MG Y TA B EN 60 05 05 0 30 8 CA 68 CA Ac DO 95 -2 -2 .0 RL 17 BA ti CE 10 7- 7- 00 IS 24 LL ve T 71 20 20 LE ER 10 27 11 11 O -[address] AVALOS 25 UG MO N MG CO L MP TA AN BL Y ET 00 04 05 3 14 20 CA 68 No Ac 59 -1 -2 .6 RL 03 t ti 70 9- 0- 99 IS 11 Av ve 01 20 20 LE ai 31 11 11 la 4 bl UG e CO MP AN Y RI 37 05 05 1 56 28 CA 68 No Ac IL 00 -2 -2 .0 RL 14 t ti OS 00 0- 0- 00 IS 89 Av ve EC 45 20 20 LE ai 50 11 11 la OT 3 bl C UG e 20 .6 CO MP MG AN Y TA BL ET 16 09 05 10 36 30 YO 22 No Ac 25 -2 -1 0. UR 07 t ti 20 2- 8- 00 4 Av ve 54 20 20 0 PH ai 76 10 11 AR la 6 MA bl CY e CI 00 05 05 0 30 30 CA 68 TA Ac RI 14 -1 -1 .0 RL 12 MA ti OF 39 6- 6- 00 IS 64 RE ve LO 92 20 20 LE N XA 70 11 [address] LEROY N UG T HC L CO 25 MP 0 AN MG Y TA B TI 00 05 05 1 40 20 CA 68 TA Ac ZA 18 -1 -1 .0 RL 12 MA ti NI 54 6- 6- 00 IS 65 RE ve DI 40 20 20 LE N NE 05 [address] LEROY HC UG T L 4 CO MG MP AN TA Y BL ET ME 00 05 05 0 60 30 CA 68 TA Ac LO 37 -1 -1 .0 RL 12 MA ti XI 81 6- 6- 00 IS 67 RE ve CA 06 20 20 LE N M 60 [address] LEROY 5 UG T MG CO TA MP BL AN ET Y NI 00 05 05 0 14 7 CA 68 GA Ac TR 18 -0 -0 .0 RL 07 NT ti OF 50 3- 3- 00 IS 98 LE ve UR 12 20 20 LE Y AN 20 [address] NA IN UG R MO CO NO MP -M AN CR Y 10 0 MG 00 04 04 3 14 20 CA 68 No Ac 59 -1 -1 .6 RL 03 t ti 70 9- 9- 99 IS 11 Av ve 01 20 20 LE ai 31 [address] bl UG e CO MP AN Y 16 09 03 10 36 30 YO 22 No Ac 25 -2 -3 0. UR 07 t ti 20 2- 1- 00 4 Av ve 54 20 20 0 PH ai 76 10 11 AR la 6 MA bl CY e 00 12 03 3 14 25 CA 67 No Ac 59 -2 -1 .6 RL 60 t ti 70 3 9 99 IS 97 Av ve 01 20 20 LE ai 31 [address] bl UG e CO MP AN Y EV 00 12 03 5 30 30 CA 67 CH Ac IS 00 -0 -1 .0 RL 55 AM ti TA 24 6- 7- 00 IS 08 BE ve 16 20 20 LE RS 60 [address] MA MG UG RA D TA CO BL MP ET AN Y RI 37 01 03 1 56 28 CA 67 No Ac IL 00 -1 -1 .0 RL 69 t ti OS 00 9 7- 00 IS 37 Av ve EC 45 20 20 LE ai 50 11 [address] bl C UG e 20 .6 CO MP MG AN Y TA BL ET ME 00 01 03 2 30 30 CA 67 SL Ac LO 37 -1 -1 .0 RL 68 OA ti XI 81 7- 7- 00 IS 38 N ve CA 06 20 20 LE PA M 60 [address] 5 UG MG CO TA MP BL AN ET Y 00 09 02 10 36 30 YO 22 No Ac 18 -2 -2 0. UR 07 t ti 57 2- 8- 00 4 Av ve 32 20 20 0 PH ai 26 10 11 AR la 0 MA bl CY e 00 12 02 3 14 25 CA 67 No Ac 59 -2 -2 .6 RL 60 t ti 70 3- 3- 99 IS 97 Av ve 01 20 20 LE ai 31 [address] bl UG e CO MP AN Y LY 00 02 02 3 60 30 CA 67 EI Ac RI 07 -1 -1 .0 RL 76 CH ti CA 11 0- 0- 00 IS 95 HO ve 01 20 20 LE RN 15 66 [address] GE MG UG RA LD CA CO R PS MP UL AN E Y LO 00 02 02 0 2. 1 CA 67 EI Ac RA 59 -1 -1 00 RL 76 CH ti ZE 10 0- 0- 0 IS 96 HO ve PA 24 20 20 LE RN M [address] RUFINO 5 UG RA MG LD CO R TA MP BL AN ET Y ON 00 02 02 0 12 30 CA 67 No Ac DA 78 -1 -1 .0 RL 76 t ti NS 11 0- 0- 00 IS 97 Av ve ET 68 20 20 LE ai RO 13 11 [address] kylie HC UG e L 8 CO MG MP AN TA Y BL ET DI 00 02 02 0 20 5 CA 67 No Ac PH 37 -1 -1 .0 RL 76 t ti EN 80 0- 0- 00 IS 98 Av ve OX 41 20 20 LE ai YL 50 11 [address] kylie E- UG e AT RO CO P MP 2. AN 5- Y 0. 02 5 FL 00 02 02 3 12 30 CA 67 No Ac OV 17 -0 -0 .0 RL 76 t ti EN 30 8- 8- 00 IS 17 Av ve T 72 20 20 LE ai HF 02 [address] espinal 22 UG e 0 MC CO G MP IN AN PEREZ Y LE R GE 61 01 01 0 5. 7 CA 67 No Ac NT 31 -3 -3 00 RL 73 t ti AM 40 1- 1- 0 IS 18 Av ve IC 63 20 20 LE ai IN 30 11 [address] kylie UG e MG /M CO L MP EY AN E Y DR OP S LY 00 01 01 1 90 30 CA 67 No Ac RI 07 -3 -3 .0 RL 73 t ti CA 11 1- 1- 00 IS 19 Av ve 01 20 20 LE ai 50 36 [address] kylie MG UG e CA CO PS MP UL AN E Y 00 12 01 3 14 25 CA 67 No Ac 59 -2 -1 .6 RL 60 t ti 70 3 99 IS 97 Av ve 01 20 20 LE ai 31 [address] kylie UG e CO MP AN Y RI 37 01 01 1 56 28 CA 67 No Ac IL 00 -1 -1 .0 RL 69 t ti OS 00 IS 37 Av ve EC 45 20 20 LE ai 50 [address] bl C UG e 20 .6 CO MP MG AN Y TA BL ET AM 00 01 01 3 30 30 CA 67 No Ac IT 78 -1 -1 .0 RL 68 t ti RI 11 7- 7- 00 IS 39 Av ve PT 48 20 20 LE ai YL 60 11 [address] bl E UG e HC L CO 10 MP AN MG Y TA B ME 00 01 01 2 30 30 CA 67 SL Ac LO 37 -1 -1 .0 RL 68 OA ti XI 81 7- 7- 00 IS 38 N ve CA 06 20 20 LE PA M 60 [address] 5 UG MG CO TA MP BL AN ET Y HY 00 11 01 2 30 30 CA [address] 55 -0 -0 .0 RL 43 t ti OX 50 4- 3- 00 IS 80 Av ve YZ 32 20 20 LE ai IN 30 [address] bl PA UG e M 25 CO MP MG AN Y CA P TR 50 01 01 0 15 30 CA 67 No Ac AZ 11 -0 -0 .0 RL 63 t ti OD 10 3- 3- 00 IS 97 Av ve ON 43 20 20 LE ai E 30 11 [address] bl UG e MG CO TA MP BL AN ET Y 00 12 12 3 14 25 CA 67 No Ac 59 -2 -2 .6 RL 60 t ti 70 3- 3- 99 IS 97 Av ve 01 20 20 LE ai 31 [address] bl UG e CO MP AN Y 00 09 12 10 36 30 YO 22 No Ac 18 -2 -2 0. UR 07 t ti 57 2- 3- 00 4 Av ve 32 20 20 0 PH ai 26 10 10 AR la 0 MA bl CY e RI 00 11 12 3 6. 15 SO 35 No Ac OV 08 -2 -2 70 PE 86 t ti EN 51 4- 3- 0 RS 13 Av ve TI 13 20 20 ai L 20 10 10 FA la HF 1 WV bl A LY e 90 DR MC UG G IN PEREZ LE R EV 00 12 12 5 30 30 CA 67 CH Ac IS 00 -0 -0 .0 RL 55 AM ti TA 24 6- 6- 00 IS 08 BE ve 16 20 20 LE RS 60 [address] MA MG UG RA D TA CO BL MP ET AN Y HY 00 11 12 2 30 30 CA [address] 55 -0 -0 .0 RL 43 t ti OX 50 4- 3- 00 IS 80 Av ve YZ 32 20 20 LE ai IN 30 [address] bl PA UG e M 25 CO MP MG AN Y CA P 00 08 11 3 14 20 SO 35 No Ac 59 -2 -2 .6 PE 02 t ti 70 4- 4- 99 RS 41 Av ve 01 20 20 ai 31 10 10 FA la 4 [place] bl LY e DR UG RI 00 11 11 3 6. 15 SO 35 No Ac OV 08 -2 -2 70 PE 86 t ti EN 51 4- 4- 0 RS 13 Av ve TI 13 20 20 ai L 20 10 10 FA la HF 1 WV bl A LY e 90 DR CAMPBELL UG G IN PEREZ LE R 00 09 11 10 36 30 YO 22 No Ac 18 -2 -2 0. UR 07 t ti 57 2- 2- 00 4 Av ve 32 20 20 0 PH ai 26 10 10 AR la 0 MA bl CY e OX 00 11 11 0 33 3 CV 57 WR Ac YC 40 -1 -1 .0 S 90 IG ti OD 60 5- 5- 00 PH 67 HT ve ON 55 20 20 AR E 20 10 10 MA HE HC 1 CY AT L # HE 5 R MG 03 R 01 TA 6 BL ET CE 00 11 11 0 20 5 CA 67 No Ac PH 09 -0 -0 .0 RL 43 t ti AL 33 4- 4- 00 IS 79 Av ve EX 14 20 20 LE ai IN 70 [address] bl 50 UG e 0 MG CO MP CA AN PS Y UL E HY 00 11 11 2 30 30 CA [address] 55 -0 -0 .0 RL 43 t ti OX 50 4- 4- 00 IS 80 Av ve YZ 32 20 20 LE ai IN 30 [address] bl PA UG e M 25 CO MP MG AN Y CA P 00 08 11 3 14 20 SO 35 No Ac 59 -2 -0 .6 PE 02 t ti 70 4- 1- 99 RS 41 Av ve 01 20 20 ai 31 10 10 FA la [address] [place] [address] LY e DR UG RI 00 09 10 2 6. 15 SO 35 No Ac OV 08 -2 -3 70 PE 29 t ti EN 51 4- 0- 0 RS 23 Av ve TI 13 20 20 ai L 20 10 10 FA la HF 1 WV bl A LY e 90 DR CAMPBELL UG G IN PEREZ LE R RI 37 09 10 2 56 28 SO 35 No Ac IL 00 -2 -3 .0 PE 32 t ti OS 00 9- 0- 00 RS 59 Av ve EC 45 20 20 ai 50 10 10 FA la OT 4 WV bl C LY e [address] UG MG TA BL ET IB 53 10 10 0 45 15 CA 67 No Ac UP 74 -2 -2 .0 RL 41 t ti RO 60 8- 8- 00 IS 20 Av ve FE 46 20 20 LE ai N 50 10 [address] bl 0 UG e MG CO TA MP BL AN ET Y AL 00 10 10 0 6. 3 SO 35 No Ac RI 78 -2 -2 00 PE 52 t ti AZ 11 1- 1- 0 RS 37 Av ve OL 06 20 20 ai AM 10 10 10 FA la 5 WV bl 0. LY e 25 DR MG UG TA BL ET 00 08 10 3 14 20 SO 35 No Ac 59 -2 -1 .6 PE 02 t ti 70 4- 4- 99 RS 41 Av ve 01 20 20 ai 31 10 10 FA la 4 [place] bl LY e DR UG RI 00 09 10 2 6. 15 SO 35 No Ac OV 08 -2 -1 70 PE 29 t ti EN 51 4- 4- 0 RS 23 Av ve TI 13 20 20 ai L 20 10 10 FA la HF 1 WV bl A LY e 90 DR MC UG G IN PEREZ LE R EF 00 10 10 3 30 12 SO 35 No Ac FE 00 -1 -1 .0 PE 46 t ti XO 80 4- 4- 00 RS 63 Av ve R 83 20 20 ai XR 72 10 10 FA la 2 WV bl [address] MG UG CA PS UL E ZO 00 10 10 0 30 30 SO 35 No Ac LP 09 -1 -1 .0 PE 46 t ti ID 30 4- 4- 00 RS 96 Av ve EM 07 20 20 ai 30 10 10 FA la TA 1 WV bl RT LY e RA TE DR 5 UG MG TA BL ET RI 37 09 09 2 56 28 SO 35 No Ac IL 00 -2 -2 .0 PE 32 t ti OS 00 9- 9 00 RS 59 Av ve EC 45 20 20 ai 50 10 10 FA la OT 4 WV bl C LY e [address] UG MG TA BL ET 00 09 09 0 10 5 SO 35 No Ac 14 -2 -2 .0 PE 29 t ti 31 7- 7- 00 RS 73 Av ve 47 20 20 ai 70 10 10 FA la 1 [place] bl LY e DR UG RI 00 09 09 2 6. 15 SO 35 No Ac OV 08 -2 -2 70 PE 29 t ti EN 51 4- 4- 0 RS 23 Av ve TI 13 20 20 ai L 20 10 10 FA la HF 1 WV bl A LY e 90 DR UG G IN PEREZ LE R 00 09 09 10 36 30 YO 22 No Ac 18 -2 -2 0. UR 07 t ti 57 2- 2- 00 4 Av ve 32 20 20 0 PH ai 26 10 10 AR la 0 MA bl CY e 00 09 09 0 21 6 SO 35 No Ac 55 -1 -1 .0 PE 21 t ti 50 6- 6- 00 RS 38 Av ve 30 20 20 ai 13 10 10 FA la [address] [place] [address] LY e DR UG GA 68 09 09 0 60 30 SO 35 No Ac BA 46 -1 -1 .0 PE 21 t ti PE 20 6- 6- 00 RS 39 Av ve NT 12 20 20 ai IN 60 10 10 FA la 5 WV bl 60 LY [address] UG TA BL ET 00 08 09 3 14 20 SO 35 No Ac 59 -2 -1 .6 PE 02 t ti 70 4- 3- 99 RS 41 Av ve 01 20 20 ai 31 10 10 FA la [address] [place] [address] LY e [address] UG CI 55 09 09 0 14 7 SO 35 No Ac RI 11 -0 -0 .0 PE 10 t ti OF 10 2- 2- 00 RS 08 Av ve LO 12 20 20 ai XA 70 10 10 FA la CI 1 WV bl N LY e HC L DR 50 UG 0 MG TA B 00 08 08 0 14 7 SO 35 No Ac 14 -2 -2 .0 PE 02 t ti 31 4- 4- 00 RS 39 Av ve 47 20 20 ai 70 10 10 FA la 1 [place] bl LY e DR UG RI 00 08 08 5 30 30 SO 35 No Ac EM 04 -2 -2 .0 PE 02 t ti AR 61 4- 4- 00 RS 42 Av ve IN 10 20 20 ai 28 10 10 FA la 0. 1 WV bl 62 LY [address] UG TA BL ET RI 37 05 08 3 56 28 SO 34 No Ac IL 00 -1 -1 .0 PE 31 t ti OS 00 8- 9- 00 RS 15 Av ve EC 45 20 20 ai 50 10 10 FA la OT 4 WV bl C LY e [address] UG MG TA BL ET 00 07 08 3 14 15 SO 34 No Ac 59 -2 -1 .6 PE 81 t ti 70 8- 9 99 RS 21 Av ve 01 20 20 ai 31 10 10 FA la 4 [place] bl LY e DR UG HY 00 08 08 0 40 10 SO [address] 18 -1 -1 .0 PE 94 t ti OX 50 3- 3- 00 RS 12 Av ve YZ 61 20 20 ai IN 30 10 10 FA la E 5 WV bl PA LY e M 25 DR UG MG CA P DI 00 08 08 0 30 15 SO 34 No Ac PH 37 -1 -1 .0 PE 94 t ti EN 80 3- 3- 00 RS 13 Av ve OX 41 20 20 ai YL 51 10 10 FA la AT 0 W[place] bl E- LY e AT RO DR P UG 2. 5- 0. 02 5 MARKS 00 08 08 0 14 14 SO 34 No Ac LF 60 -1 -1 .0 PE 92 t ti AM 35 1- 1- 00 RS 64 Av ve ET 78 20 20 ai HO 12 10 10 FA la XA 8 WV bl ZO LY e LE -T DR MP UG DS TA BL ET PE 00 07 08 1 59 1 SO 34 No Ac RM 47 -1 -0 .0 PE 71 t ti ET 25 5- 5- 00 RS 19 Av ve HR 24 20 20 ai IN 26 10 10 FA la 7 WV bl 1% LY e LO DR TI UG ON 00 07 07 3 14 15 SO 34 No Ac 59 -2 -2 .6 PE 81 t ti 70 8 8 99 RS 21 Av ve 01 20 20 ai 31 10 10 FA la [address] [place] [address] LY e DR UG AR 24 07 07 4 15 10 SO 34 No Ac TI 38 -2 -2 .0 PE 80 t ti FI 50 7- 7- 00 RS 49 Av ve CI 00 20 20 ai AL 60 10 10 FA la 5 WV bl TE LY e AR S DR UG OP S TR 50 07 07 4 15 30 SO 34 No Ac AZ 11 -2 -2 .0 PE 80 t ti OD 10 7- 7- 00 RS 50 Av ve ON 43 20 20 ai E 30 10 10 FA la 50 3 WV bl LY e MG DR TA UG BL ET RI 37 05 07 3 56 28 SO 34 No Ac IL 00 -1 -2 .0 PE 31 t ti OS 00 8- 6- 00 RS 15 Av ve EC 45 20 20 ai 50 10 10 FA la OT 4 WV bl C LY e [address] UG MG TA BL ET RI 00 06 07 2 6. 15 SO 34 No Ac OV 08 -2 -2 70 PE 54 t ti EN 51 1- 6- 0 RS 81 Av ve TI 13 20 20 ai L 20 10 10 FA la HF 1 WV bl A LY e 90 DR VOGEL G IN PEREZ LE R PE 00 07 07 1 59 1 SO 34 No Ac RM 47 -1 -1 .0 PE 71 t ti ET 25 5- 5- 00 RS 19 Av ve HR 24 20 20 ai IN 26 10 10 FA la 7 WV bl 1% LY e LO DR CHAR UG ON 00 09 07 11 36 30 YO 21 No Ac 18 -0 -1 0. UR 04 t ti 57 3- 2- 00 2 Av ve 32 20 20 0 PH ai 26 09 10 AR la 0 MA bl CY e 00 05 07 2 12 30 SO 34 FL Ac 59 -0 -0 0. PE 19 IN ti 10 4- 9- 00 RS 70 CH ve 54 20 20 0 UM 00 10 10 FA 5 WV EL LY LE N DR Demetrice UG TI 00 05 07 2 60 30 SO 34 FL Ac ZA 18 -0 -0 .0 PE 19 IN ti NI 50 4- 9- 00 RS 71 CH ve DI 03 20 20 UM NE 45 10 10 FA 1 W[place] EL HC LY LE L N 2 DR Demetrice MG UG TA BL ET 00 03 07 5 14 15 SO 33 No Ac 59 -1 -0 .6 PE 76 t ti 70 2- 6- 99 RS 71 Av ve 01 20 20 ai 31 10 10 FA la 4 W[place] bl LY e DR UG RI 00 03 07 3 30 30 SO 33 No Ac EM 04 -1 -0 .0 PE 76 t ti AR 61 2- 6- 00 RS 72 Av ve IN 10 20 20 ai 28 10 10 FA la 0. 1 [place] bl 62 LY [address] UG TA BL ET RI 00 06 07 2 6. 15 SO 34 No Ac OV 08 -2 -0 70 PE 54 t ti EN 51 1- 6- 0 RS 81 Av ve TI 13 20 20 ai L 20 10 10 FA la HF 1 WV bl A LY e 90 DR VOGEL G IN PEREZ LE R RI 00 06 06 2 6. 15 SO 34 No Ac OV 08 -2 -2 70 PE 54 t ti EN 51 1- 1- 0 RS 81 Av ve TI 13 20 20 ai L 20 10 10 FA la HF 1 WV bl A LY e 90 DR MC UG G IN PEREZ LE R 00 03 06 5 14 15 SO 33 No Ac 59 -1 -1 .6 PE 76 t ti 70 2- 6- 99 RS 71 Av ve 01 20 20 ai 31 10 10 FA la 4 [place] bl LY e DR UG RI 37 05 06 3 56 28 SO 34 No Ac IL 00 -1 -1 .0 PE 31 t ti OS 00 8- 6- 00 RS 15 Av ve EC 45 20 20 ai 50 10 10 FA la OT 4 WV bl C LY e [address] UG MG TA BL ET CE 68 06 06 0 28 7 SO 34 No Ac PH 18 -1 -1 .0 PE 49 t ti AL 00 4- 4- 00 RS 94 Av ve EX 12 20 20 ai IN 20 10 10 FA la 2 W[place] bl [address] L[address] UG CA PS UL E 00 09 06 11 36 30 YO 21 No Ac 18 -0 -1 0. UR 04 t ti 57 3- 1- 00 2 Av ve 32 20 20 0 PH ai 26 09 10 AR la 0 MA bl CY e 00 05 06 2 12 30 SO 34 FL Ac 59 -0 -0 0. PE 19 IN ti 10 4- 8- 00 RS 70 CH ve 54 20 20 0 UM 00 10 10 FA 5 [place] EL LY LE N DR Demetrice UG RI 00 03 06 3 30 30 SO 33 No Ac EM 04 -1 -0 .0 PE 76 t ti AR 61 2- 8- 00 RS 72 Av ve IN 10 20 20 ai 28 10 10 FA la 0. 1 [place] bl [address] L[address] NIKKY TA BL ET 00 03 05 5 14 15 SO 33 No Ac 59 -1 -2 .6 PE 76 t ti 70 2- 7 99 RS 71 Av ve 01 20 20 ai 31 10 10 FA la 4 W[place] bl LY e DR UG RI 00 03 05 3 6. 15 SO 33 No Ac OV 08 -1 -2 70 PE 76 t ti EN 51 2- 7- 0 RS 73 Av ve TI 13 20 20 ai L 20 10 10 FA la HF 1 WV bl A LY e 90 DR CAMPBELL UG G IN PEREZ LE R AD 00 05 05 2 60 30 SO 34 No Ac VA 17 -2 -2 .0 PE 38 t ti IR 30 7- 7- 00 RS 21 Av ve 69 20 20 ai 25 60 10 10 FA la 0- 0 [place] bl [address] HARRISON UG US CL 00 05 05 0 30 30 SO 34 No Ac ON 37 -2 -2 .0 PE 36 t ti ID 80 5- 5- 00 RS 78 Av ve IN 15 20 20 ai E 21 10 10 FA la HC 0 WV bl L LY e 0. 1 DR MG UG TA BL ET AZ 00 05 05 0 6. 5 SO 34 No Ac IT 78 -1 -1 00 PE 31 t ti HR 11 8- 8- 0 RS 14 Av ve OM 49 20 20 ai YC 66 10 10 FA la IN 8 WV bl LY e [address] MG UG TA BL ET RI 37 05 05 3 56 28 SO 34 No Ac IL 00 -1 -1 .0 PE 31 t ti OS 00 8- 8- 00 RS 15 Av ve EC 45 20 20 ai 50 10 10 FA la OT 4 WV bl C LY e [address] UG MG TA BL ET 00 09 05 11 36 30 YO 21 No Ac 18 -0 -1 0. UR 04 t ti 57 3- 1- 00 2 Av ve 32 20 20 0 PH ai 26 09 10 AR la 0 MA bl CY e 00 03 05 5 14 15 SO 33 No Ac 59 -1 -0 .6 PE 76 t ti 70 2- 5- 99 RS 71 Av ve 01 20 20 ai 31 10 10 FA la 4 [place] bl LY e DR UG RI 00 03 05 3 30 30 SO 33 No Ac EM 04 -1 -0 .0 PE 76 t ti AR 61 2- 5- 00 RS 72 Av ve IN 10 20 20 ai 28 10 10 FA la 0. 1 [place] bl 62 LY [address] UG TA BL ET RI 00 03 05 3 6. 15 SO 33 No Ac OV 08 -1 -0 70 PE 76 t ti EN 51 2- 5- 0 RS 73 Av ve TI 13 20 20 ai L 20 10 10 FA la HF 1 WV bl A LY e 90 DR MC UG G IN PEREZ LE R TI 00 05 05 2 60 30 SO 34 FL Ac ZA 18 -0 -0 .0 PE 19 IN ti NI 50 4- 4- 00 RS 71 CH ve DI 03 20 20 UM NE 45 10 10 FA 1 WV EL HC LY LE L N 2 DR J MG UG TA BL ET LI 60 04 04 1 27 6 CA 66 No Ac DO 43 -2 -2 0. RL 81 t ti CA 20 2- 2- 00 IS 22 Av ve IN 46 20 20 0 LE ai E 40 10 10 la 2% 0 DR bl UG e SC CO OU MP S AN SO Y LN BU 00 04 04 1 60 30 SO 34 No Ac SP 59 -1 -1 .0 PE 03 t ti IR 10 4- 4- 00 RS 23 Av ve ON 65 20 20 ai E 80 10 10 FA la HC 1 WV bl L LY e 10 DR MG UG TA BL ET AL 24 04 04 1 24 24 SO 34 No Ac LE 38 -1 -1 .0 PE 03 t ti RG 50 4- 4- 00 RS 24 Av ve Y 47 20 20 ai 25 96 10 10 FA la 2 WV bl MG LY e TA DR BL UG ET RI 37 01 04 3 56 28 SO 33 No Ac IL 00 -0 -0 .0 PE 25 t ti OS 00 7- 8- 00 RS 48 Av ve EC 45 20 20 ai 50 10 10 FA la OT 4 WV bl C LY e [address] UG MG TA BL ET 00 03 04 5 14 15 SO 33 No Ac 59 -1 -0 .6 PE 76 t ti 70 2- 8- 99 RS 71 Av ve 01 20 20 ai 31 10 10 FA la 4 W[place] bl LY e DR UG RI 00 03 04 3 6. 15 SO 33 No Ac OV 08 -1 -0 70 PE 76 t ti EN 51 2- 8- 0 RS 73 Av ve TI 13 20 20 ai L 20 10 10 FA la HF 1 WV bl A LY e 90 DR MC UG G IN PEREZ LE R VE 68 04 04 3 30 30 SO 33 No Ac NL 38 -0 -0 .0 PE 93 t ti AF 20 2- 2- 00 RS 99 Av ve AX 02 20 20 ai IN 10 10 10 FA la E 1 WV bl HC LY e L 75 DR UG MG TA BL ET TR 00 04 04 3 30 30 SO 33 No Ac IC 07 -0 -0 .0 PE 94 t ti OR 46 2- 2- 00 RS 00 Av ve 12 20 20 ai 48 29 10 10 FA la 0 WV bl MG LY e TA DR BL UG ET 00 09 03 11 36 30 YO 21 No Ac 18 -0 -3 0. UR 04 t ti 57 3- 1- 00 2 Av ve 32 20 20 0 PH ai 26 09 10 AR la 0 MA bl CY e CI 55 03 03 0 10 10 SO 33 No Ac RI 11 -1 -1 .0 PE 76 t ti OF 10 2- 2- 00 RS 68 Av ve LO 12 20 20 ai XA 70 10 10 FA la CI 1 WV bl N LY e HC L DR 50 UG 0 MG TA B 00 03 03 5 14 15 SO 33 No Ac 59 -1 -1 .6 PE 76 t ti 70 2- 2- 99 RS 71 Av ve 01 20 20 ai 31 10 10 FA la 4 [place] bl LY e DR UG RI 00 03 03 3 30 30 SO 33 No Ac EM 04 -1 -1 .0 PE 76 t ti AR 61 2- 2- 00 RS 72 Av ve IN 10 20 20 ai 28 10 10 FA la 0. 1 W[place] bl 62 LY [address] UG TA BL ET RI 00 03 03 3 6. 15 SO 33 No Ac OV 08 -1 -1 70 PE 76 t ti EN 51 2- 2- 0 RS 73 Av ve TI 13 20 20 ai L 20 10 10 FA la HF 1 WV bl A LY e 90 DR MC UG G IN PEREZ LE R EY 00 03 03 0 12 30 SO 33 No Ac E 90 -1 -1 0. PE 76 t ti WA 45 2- 2- 00 RS 76 Av ve SH 37 20 20 0 ai 72 10 10 FA la SO 0 WV bl RAUL LY e TI ON DR UG RI 37 01 03 3 56 28 SO 33 No Ac IL 00 -0 -0 .0 PE 25 t ti OS 00 7- 8- 00 RS 48 Av ve EC 45 20 20 ai 50 10 10 FA la OT 4 WV bl C LY e [address] UG MG TA BL ET 00 03 03 1 90 30 SO 33 LA Ac 59 -0 -0 .0 PE 66 RS ti 10 2- 2- 00 RS 66 ON ve 54 20 20 00 10 10 FA LA 5 WV UR LY EN K DR UG 00 02 02 00 14 15 SO 33 No Ac 59 -1 -2 .6 PE 59 t ti 70 9- 6- 99 RS 45 Av ve 01 20 20 ai 31 10 10 FA la 4 [place] bl LY e DR UG MU 63 02 02 00 40 10 SO 33 No Ac CI 82 -0 -2 .0 PE 50 t ti NE 40 8- 6- 00 RS 40 Av ve X 00 20 20 ai ER 83 10 10 FA la 4 WV bl 60 L[address] UG TA BL ET RI 37 01 02 01 56 28 SO 33 No Ac IL 00 -0 -2 .0 PE 25 t ti OS 00 7- 6- 00 RS 48 Av ve EC 45 20 20 ai 50 10 10 FA la OT 4 WV bl C LY e [address] SHER MG TA BL ET RI 00 02 02 00 6. 15 SO 33 No Ac OV 08 -1 -2 70 PE 59 t ti EN 51 9- 6- 0 RS 44 Av ve TI 13 20 20 ai L 20 10 10 FA la HF 1 WV bl A LY e 90 DR VOGEL G IN PEREZ LE R AZ 64 02 02 00 6. 5 SO 33 No Ac IT 67 -0 -2 00 PE 50 t ti HR 90 8- 6- 0 RS 39 Av ve OM 96 20 20 ai YC 10 10 10 FA la IN 5 WV bl LY e [address] UG TA BL ET 00 12 02 01 90 30 SO 33 LA Ac 59 -3 -1 .0 PE 19 RS ti 10 0- 1- 00 RS 65 ON ve 54 20 20 00 09 10 FA LA 5 W[place] UR LY EN K DR NIKKY 00 05 02 06 36 30 YO 18 No Ac 18 -2 -1 0. UR 98 t ti 57 2- 1- 00 4 Av ve 32 20 20 0 PH ai 26 09 10 AR la 0 MA bl CY e RI 00 12 01 01 6. 15 SO 33 No Ac OV 08 -1 -2 70 PE 09 t ti EN 51 6- 8- 0 RS 53 Av ve TI 13 20 20 ai L 20 09 10 FA la HF 1 WV bl A LY e 90 DR VOGEL G IN PEREZ LE R CY 00 12 01 01 30 30 SO 33 FL Ac MB 00 -1 -2 .0 PE 06 IN ti AL 23 2- 8- 00 RS 47 CH ve TA 23 20 20 UM 56 09 10 FA 20 0 WV EL LY LE MG N DR Suresh CA UG PS UL E TI 00 12 01 00 60 30 SO 33 LA Ac ZA 18 -1 -2 .0 PE 06 RS ti NI 50 2- 8- 00 RS 48 ON ve DI 03 20 20 NE 45 09 10 FA LA 1 WV UR HC LY EN L K 2 DR UG TA BL ET 00 12 01 01 14 20 SO 33 No Ac 59 -1 -2 .6 PE 09 t ti 70 6- 8- 99 RS 52 Av ve 01 20 20 ai 31 09 10 FA la 4 [place] bl LY e DR UG RI 37 01 01 00 56 28 SO 33 No Ac IL 00 -0 -1 .0 PE 25 t ti OS 00 7- 4- 00 RS 48 Av ve EC 45 20 20 ai 50 10 10 FA la OT 4 WV bl C LY e [address] UG MG TA BL ET 64 01 01 00 12 30 SO 33 No Ac 72 -0 -1 0. PE 25 t ti 00 7- 4- 00 RS 47 Av ve 15 20 20 0 ai 80 10 10 FA la 6 [place] bl LY e DR NIKKY 00 12 01 00 90 30 SO 33 LA Ac 59 -3 -1 .0 PE 19 RS ti 10 0- 4- 00 RS 65 ON ve 54 20 20 00 09 10 FA LA 5 [place] UR LY EN K DR SHER 00 05 01 05 36 30 YO 18 No Ac 18 -2 -1 0. UR 98 t ti 57 2- 4- 00 4 Av ve 32 20 20 0 PH ai 26 09 10 AR la 0 MA bl CY e CY 00 12 12 00 30 30 SO 33 FL Ac MB 00 -1 -3 .0 PE 06 IN ti AL 23 2- 1- 00 RS 47 CH ve TA 23 20 20 UM 56 09 09 FA 20 0 WV EL LY LE MG N DR J CA UG PS UL E RI 00 12 12 00 6. 15 SO 33 No Ac OV 08 -1 -3 70 PE 09 t ti EN 51 6- 1- 0 RS 53 Av ve TI 13 20 20 ai L 20 09 09 FA la HF 1 WV bl A LY e 90 DR VOGEL G IN PEREZ LE R RI 00 11 12 01 30 30 SO 32 No Ac EM 04 -0 -3 .0 PE 74 t ti AR 61 6- 1- 00 RS 77 Av ve IN 10 20 20 ai 28 09 09 FA la 0. 1 W[place] bl 62 LY [address] UG TA BL ET TI 00 10 12 01 60 30 SO 32 LA Ac ZA 18 -0 -3 .0 PE 49 RS ti NI 50 7- 1- 00 RS 88 ON ve DI 03 20 20 NE 45 09 09 FA LA 1 WV UR HC LY EN L K 2 DR MG UG TA BL ET 00 12 12 00 14 20 SO 33 No Ac 59 -1 -3 .6 PE 09 t ti 70 6- 1- 99 RS 52 Av ve 01 20 20 ai 31 09 09 FA la 4 [place] bl LY e DR UG 00 10 12 01 3. 15 SO 32 BL Ac 16 -2 -0 50 PE 64 AN ti 80 7- 3- 0 RS 42 DF ve 02 20 20 OR 63 09 09 FA D 8 [place] DA LY D DR SHER 00 05 12 04 36 30 YO 18 No Ac 18 -2 -0 0. UR 98 t ti 57 2- 3- 00 4 Av ve 32 20 20 0 PH ai 26 09 09 AR la 0 MA bl CY e RI 64 10 11 00 60 30 SO 32 No Ac EV 76 -1 -1 .0 PE 49 t ti AC 40 2- 9- 00 RS 91 Av ve ID 04 20 20 ai 61 [address] 3 WV bl LY e 30 DR UG CA PS UL E RI 00 11 11 00 30 30 SO 32 No Ac EM 04 -0 -1 .0 PE 74 t ti AR 61 6- 9- 00 RS 77 Av ve IN 10 20 20 ai 28 09 09 FA la 0. 1 [place] bl 62 LY [address] NIKKY TA BL ET 00 08 11 03 14 15 SO 31 No Ac 59 -1 -1 .6 PE 97 t ti 70 1- 9- 99 RS 04 Av ve 01 20 20 ai 31 09 09 FA la 4 [place] bl LY e DR SHER RI 00 08 11 03 6. 15 SO 31 No Ac OV 08 -1 -1 70 PE 97 t ti EN 51 1- 9- 0 RS 05 Av ve TI 13 20 20 ai L 20 09 09 FA la HF 1 WV bl A LY e 90 DR CAMPBELL UG G IN PEREZ LE R 00 10 11 00 3. 15 SO 32 BL Ac 16 -2 -0 50 PE 64 AN ti 80 7- 5- 0 RS 42 DF ve 02 20 20 OR 63 09 09 FA D 8 [place] DA LY D DR SHER GE 24 10 10 00 5. 7 SO 32 LA Ac NT 20 -1 -2 00 PE 49 RS ti AM 80 2- 2- 0 RS 92 ON ve IC 58 20 20 IN 06 09 09 FA LA 0 WV UR 0. LY EN 3% K DR LANCASTER UG E OP S CY 00 10 10 00 30 30 SO 32 LA Ac MB 00 -0 -2 .0 PE 49 RS ti AL 23 7- 2- 00 RS 87 ON ve TA 24 20 20 03 09 09 FA LA 30 0 WV UR LY EN MG K CA UG PS UL E 00 05 10 03 36 30 YO 18 No Ac 18 -2 -2 0. UR 98 t ti 57 2- 2- 00 4 Av ve 32 20 20 0 PH ai 26 09 09 AR la 0 MA bl CY e 00 08 10 02 14 15 SO 31 No Ac 59 -1 -2 .6 PE 97 t ti 70 1- 2- 99 RS 04 Av ve 01 20 20 ai 31 09 09 FA la 4 [place] bl LY e DR UG AZ 64 10 10 00 6. 5 SO 32 No Ac IT 67 -1 -2 00 PE 54 t ti HR 90 6- 2- 0 RS 71 Av ve OM 96 20 20 ai YC 10 09 09 FA la IN 5 WV bl LY e [address] MG UG TA BL ET ME 50 10 10 00 40 10 SO 32 No Ac TR 11 -1 -2 .0 PE 54 t ti ON 10 6- 2- 00 RS 70 Av ve ID 33 20 20 ai AZ 30 09 09 FA la OL 6 WV bl E LY e [address] MG UG TA BL ET MU 63 10 10 00 40 10 SO 32 No Ac CI 82 -1 -2 .0 PE 54 t ti NE 40 6- 2- 00 RS 72 Av ve X 00 20 20 ai ER 83 09 09 FA la 4 WV bl 60 LY [address] UG TA BL ET TI 60 10 10 00 60 30 SO 32 LA Ac ZA 50 -0 -2 .0 PE 49 RS ti NI 50 7- 2- 00 RS 88 ON ve DI 25 20 20 NE 10 09 09 FA LA 2 WV UR HC LY EN L K 2 DR MG UG TA BL ET RI 00 08 10 02 6. 15 SO 31 No Ac OV 08 -1 -2 70 PE 97 t ti EN 51 1- 2- 0 RS 05 Av ve TI 13 20 20 ai L 20 09 09 FA la HF 1 WV bl A LY e 90 DR MC UG G IN PEREZ LE R RI 68 09 10 00 15 4 SO 32 No Ac OM 38 -2 -0 .0 PE 35 t ti ET 20 4- 8- 00 RS 26 Av ve PEREZ 04 20 20 ai ZI 00 09 09 FA la NE 1 WV bl LY e [address] UG MG TA BL ET 00 10 10 00 21 7 SO 32 No Ac 55 -0 -0 .0 PE 41 t ti 50 2- 8- 00 RS 85 Av ve 30 20 20 ai 13 09 09 FA la 8 [place] bl LY e DR UG CE 68 09 10 00 28 7 SO 32 No Ac PH 18 -2 -0 .0 PE 35 t ti AL 00 4- 8- 00 RS 38 Av ve EX 12 20 20 ai IN 20 09 09 FA la 2 WV bl 50 L[address] UG CA PS UL E RI 64 06 10 02 30 30 SO 31 No Ac EV 76 -2 -0 .0 PE 66 t ti AC 40 6- 8- 00 RS 24 Av ve ID 04 20 20 ai 61 [address] 3 [place] bl LY e 30 DR MG UG CA PS UL E RI 00 08 09 01 6. 15 SO 31 No Ac OV 08 -1 -2 70 PE 97 t ti EN 51 1- 4- 0 RS 05 Av ve TI 13 20 20 ai L 20 09 09 FA la HF 1 W[place] bl A LY e 90 DR CAMPBELL UG G IN PEREZ LE R 00 08 09 01 14 15 SO 31 No Ac 59 -1 -2 .6 PE 97 t ti 70 1- 4- 99 RS 04 Av ve 01 20 20 ai 31 09 09 FA la 4 [place] bl LY e DR UG TI 60 08 09 01 60 30 SO 32 LA Ac ZA 50 -1 -2 .0 PE 00 RS ti NI 50 4- 4- 00 RS 27 ON ve DI 25 20 20 NE 10 09 09 FA LA 2 WV UR HC LY EN L K 2 MG UG TA BL ET 00 08 09 01 90 30 SO 32 LA Ac 59 -1 -2 .0 PE 00 RS ti 10 4- 4- 00 RS 28 ON ve 54 20 20 00 09 09 FA LA 5 [place] UR LY EN K DR NIKKY RI 68 08 09 00 18 5 SO 32 No Ac OM 38 -2 -1 .0 PE 07 t ti ET 20 4- 0- 00 RS 82 Av ve PEREZ 04 20 20 ai ZI 00 09 09 FA la NE 1 WV bl LY e [address] SHER MG TA BL ET PA 00 08 08 00 5. 20 CA 65 No Ac TA 06 -1 -2 00 RL 93 t ti NO 50 3- 7- 0 IS 30 Av ve L 27 20 20 LE ai 0. 10 09 09 la 1% 5 DR bl UG e EY E IN DR Smith OP S 00 08 08 00 90 30 SO 32 LA Ac 59 -1 -2 .0 PE 00 RS ti 10 4- 7- 00 RS 28 ON ve 54 20 20 00 09 09 FA LA 5 [place] UR LY EN K DR UG RI 00 08 08 00 6. 15 SO 31 No Ac OV 08 -1 -2 70 PE 97 t ti EN 51 1- 7- 0 RS 05 Av ve TI 13 20 20 ai L 20 09 09 FA la HF 1 WV bl A LY e 90 DR CAMPBELL UG G IN PEREZ LE R 00 08 08 00 14 15 SO 31 No Ac 59 -1 -2 .6 PE 97 t ti 70 - 7- 99 RS 04 Av ve 01 20 20 ai 31 09 09 FA la 4 [place] bl LY e DR UG 00 08 08 00 30 30 SO 32 LA Ac 00 -1 -2 .0 PE 00 RS ti 23 4- 7- 00 RS 26 ON ve 23 20 20 73 09 09 FA LA 0 W[place] UR LY EN K DR UG TI 60 08 08 00 60 30 SO 32 LA Ac ZA 50 -1 -2 .0 PE 00 RS ti NI 50 4- 7- 00 RS 27 ON ve DI 25 20 20 NE 10 09 09 FA LA 2 WV UR HC LY EN L K 2 DR MG UG TA BL ET RI 64 06 08 01 30 30 SO 31 No Ac EV 76 -2 -2 .0 PE 66 t ti AC 40 6- 7- 00 RS 24 Av ve ID 04 20 20 ai 61 [address] 3 [place] bl LY e 30 DR MG UG CA PS UL E HY 00 08 08 00 90 30 CA [address] 55 -1 -2 .0 RL 93 t ti OX 50 3- 7- 00 IS 29 Av ve YZ 32 20 20 LE ai IN 30 [address] bl PA UG e M 25 IN C MG CA P TO 60 08 08 00 30 30 CA 65 No Ac PI 50 -0 -1 .0 RL 89 t ti RA 52 3- 3- 00 IS 77 Av ve MA 76 20 20 LE ai TE 00 [address] bl 25 UG e MG IN C TA BL ET 00 08 08 00 12 30 CA 65 No Ac 40 -0 -1 0. RL 89 t ti 67 3- 3- 00 IS 76 Av ve 17 20 20 0 LE ai 10 [address] bl UG e IN C 00 05 08 02 36 30 YO 18 No Ac 18 -2 -1 0. UR 98 t ti 57 2- 3- 00 4 Av ve 32 20 20 0 PH ai 26 09 09 AR la 0 MA bl CY e RI 00 07 07 00 6. 15 SO 31 No Ac OV 08 -2 -3 70 PE 81 t ti EN 51 0- 0- 0 RS 72 Av ve TI 13 20 20 ai L 20 09 09 FA la HF 1 WV bl A LY e 90 DR MC UG G IN PEREZ LE R 00 07 07 00 14 15 SO 31 No Ac 59 -2 -3 .6 PE 81 t ti 70 0- 0- 99 RS 73 Av ve 01 20 20 ai 31 09 09 FA la 4 [place] bl LY e DR UG RI 00 04 07 03 30 30 SO 31 No Ac EM 04 -2 -3 .0 PE 16 t ti AR 61 0- 0- 00 RS 41 Av ve IN 10 20 20 ai 28 09 09 FA la 0. 1 [place] bl 62 LY [address] UG TA BL ET 00 06 07 00 12 30 SO 31 No Ac 60 -2 -1 0. PE 65 t ti 33 5- 6- 00 RS 94 Av ve 88 20 20 0 ai 23 09 09 FA la 2 [place] bl LY e DR UG VE 00 06 07 00 8. 15 SO 31 No Ac NT 17 -2 -0 00 PE 66 t ti OL 30 6- 2- 0 RS 25 Av ve IN 68 20 20 ai 22 09 09 FA la HF 4 WV bl A LY e 90 DR CAMPBELL UG G IN PEREZ LE R RI 68 06 07 00 20 5 SO 31 No Ac OM 38 -2 -0 .0 PE 65 t ti ET 20 5- 2- 00 RS 96 Av ve PEREZ 04 20 20 ai ZI 00 09 09 FA la NE 1 [place]V bl LY e [address] NIKKY MG TA BL ET GE 00 03 07 01 60 30 SO 30 No Ac MF 09 -1 -0 .0 PE 84 t ti IB 30 6- 2- 00 RS 83 Av ve RO 67 20 20 ai ZI 00 09 09 FA la L 5 WV bl 60 LY [address] UG TA BL ET AD 00 02 07 02 60 30 SO 30 No Ac VA 17 -0 -0 .0 PE 47 t ti IR 30 3- 2- 00 RS 47 Av ve 69 20 20 ai 25 60 09 09 FA la 0- 0 W[place] bl 50 LY e DI SK UG US 00 02 07 02 14 15 SO 30 No Ac 59 -0 -0 .6 PE 47 t ti 70 3- 2- 99 RS 45 Av ve 01 20 20 ai 31 09 09 FA la 4 [place] bl LY e DR UG DI 00 06 07 00 10 2 SO 31 No Ac PH 37 -2 -0 .0 PE 65 t ti EN 80 5- 2- 00 RS 95 Av ve OX 41 20 20 ai YL 51 09 09 FA la AT 0 [place] bl E- LY e AT RO DR Deshaun UG 2. 5- 0. 02 5 RI 00 04 07 02 30 30 SO 31 No Ac EM 04 -2 -0 .0 PE 16 t ti AR 61 0- 2- 00 RS 41 Av ve IN 10 20 20 ai 28 09 09 FA la 0. 1 [place] bl 62 LY [address] UG TA BL ET 00 05 07 01 36 30 YO 18 No Ac 18 -2 -0 0. UR 98 t ti 57 2- 2- 00 4 Av ve 32 20 20 0 PH ai 26 09 09 AR la 0 MA bl CY e RI 64 06 07 00 30 30 SO 31 No Ac EV 76 -2 -0 .0 PE 66 t ti AC 40 6- 2- 00 RS 24 Av ve ID 04 20 20 ai 61 [address] 3 [place] bl LY e 30 DR MG UG CA PS UL E AL 00 06 06 00 60 30 SO 31 No Ac RI 78 -0 -1 .0 PE 52 t ti AZ 11 5- 8- 00 RS 41 Av ve OL 07 20 20 ai AM 71 09 09 FA la 0 W[place] bl 0. LY e [address] UG TA BL ET RI 00 04 06 01 30 30 SO 31 No Ac EM 04 -2 -0 .0 PE 16 t ti AR 61 0- 4- 00 RS 41 Av ve IN 10 20 20 ai 28 09 09 FA la 0. 1 [place] bl 62 LY [address] UG TA BL ET RI 00 05 06 00 6. 15 SO 31 No Ac OV 08 -2 -0 70 PE 45 t ti EN 51 8- 4- 0 RS 24 Av ve TI 13 20 20 ai L 20 09 09 FA la HF 1 WV bl A LY e 90 DR MC UG G IN PEREZ LE R 00 05 06 00 36 30 YO 18 No Ac 18 -2 -0 0. UR 98 t ti 57 2- 4- 00 4 Av ve 32 20 20 0 PH ai 26 09 09 AR la 0 MA bl CY e 24 05 05 00 30 30 SO 31 No Ac 38 -0 -2 .0 PE 28 t ti 50 5- 1- 00 RS 61 Av ve 17 20 20 ai 56 09 09 FA la 5 [place] bl LY e DR UG AL 00 05 05 00 2. 1 SO 31 No Ac RI 78 -1 -2 00 PE 37 t ti AZ 11 5- 1- 0 RS 03 Av ve OL 07 20 20 ai AM 71 09 09 FA la 0 W[place] bl 0. LY e [address] UG TA BL ET 63 05 05 00 40 10 SO 31 No Ac 30 -0 -2 .0 PE 28 t ti 40 5- 1- 00 RS 63 Av ve 65 20 20 ai 70 09 09 FA la 5 [place] bl LY e DR UG RI 64 01 05 03 30 30 SO 30 No Ac EV 76 -1 -2 .0 PE 35 t ti AC 40 5- 1- 00 RS 42 Av ve ID 04 20 20 ai 61 [address] 3 [place] bl LY e 30 DR MG UG CA PS UL E 00 05 05 00 30 7 SO 31 No Ac 59 -0 -2 .0 PE 28 t ti 12 5- 1- 00 RS 64 Av ve 22 20 20 ai 80 09 09 FA la 5 [place] bl LY e DR UG FL 60 05 05 00 16 30 SO 31 No Ac UT 50 -0 -2 .0 PE 28 t ti IC 50 5- 1- 00 RS 60 Av ve 82 20 20 ai ON 90 09 09 FA la E 1 WV bl RI LY e OP DR 50 UG MC G SP RA Y 00 05 05 00 60 15 SO 31 No Ac 60 -0 -2 .0 PE 32 t ti 33 8- 1- 00 RS 25 Av ve 88 20 20 ai 23 09 09 FA la 2 [place] bl LY e DR UG 00 05 05 00 30 30 SO 31 No Ac 00 -0 -2 .0 PE 28 t ti 60 5- 1- 00 RS 62 Av ve 11 20 20 ai 73 09 09 FA la 1 [place] bl LY e DR UG RI 00 04 05 00 30 30 SO 31 No Ac EM 04 -2 -0 .0 PE 16 t ti AR 61 0- 7- 00 RS 41 Av ve IN 10 20 20 ai 28 09 09 FA la 0. 1 [place] bl 62 LY e [address] UG TA BL ET 00 04 05 00 40 10 SO 31 No Ac 60 -2 -0 .0 PE 19 t ti 33 3- 7- 00 RS 17 Av ve 88 20 20 ai 23 09 09 FA la 2 [place] bl LY e DR UG 00 08 04 05 36 30 YO 16 No Ac 18 -2 -2 0. UR 66 t ti 57 2- 3- 00 2 Av ve 32 20 20 0 PH ai 26 08 09 AR la 0 MA bl CY e AM 00 04 04 00 30 30 SO 31 No Ac IT 78 -0 -2 .0 PE 02 t ti RI 11 6- 3- 00 RS 66 Av ve PT 48 20 20 ai YL 60 09 09 FA la IN 1 WV bl E LY e HC L DR 10 UG MG TA B 68 03 04 00 25 7 SO 30 No Ac 46 -2 -0 .0 PE 95 t ti 20 6- 9- 00 RS 68 Av ve 14 20 20 ai 64 09 09 FA la 5 [place] bl LY e DR UG 00 03 04 00 30 30 SO 30 No Ac 40 -2 -0 .0 PE 95 t ti 62 6- 9- 00 RS 67 Av ve 09 20 20 ai 80 09 09 FA la 5 [place] bl LY e DR UG RI 64 01 04 02 30 30 SO 30 No Ac EV 76 -1 -0 .0 PE 35 t ti AC 40 5- 9- 00 RS 42 Av ve ID 04 20 20 ai 61 [address] 3 [place] bl LY e 30 DR MG UG CA PS UL E RI 00 02 04 02 6. 15 SO 30 No Ac OV 08 -0 -0 70 PE 47 t ti EN 51 3- 9- 0 RS 46 Av ve TI 13 20 20 ai L 20 09 09 FA la HF 1 [place] bl A LY e 90 DR CAMPBELL UG G IN PEREZ LE R AZ 64 03 03 00 6. 5 SO 30 No Ac IT 67 -1 -2 00 PE 82 t ti HR 90 3- 6- 0 RS 61 Av ve OM 96 20 20 ai YC 10 09 09 FA la IN 4 WV bl LY e [address] MG UG TA BL ET GE 00 03 03 00 60 30 SO 30 No Ac MF 09 -1 -2 .0 PE 84 t ti IB 30 6- 6- 00 RS 83 Av ve RO 67 20 20 ai ZI 00 09 09 FA la L 5 W[place] bl 60 LY [address] UG TA BL ET PE 00 03 03 00 90 30 SO 30 No Ac NT 09 -1 -2 .0 PE 82 t ti OX 35 3- 6- 00 RS 62 Av ve IF 11 20 20 ai YL 60 09 09 FA la LI 5 WV bl NE LY e ER UG 40 0 MG TA B 00 08 03 04 36 30 YO 16 No Ac 18 -2 -2 0. UR 66 t ti 57 2- 6- 00 2 Av ve 32 20 20 0 PH ai 26 08 09 AR la 0 MA bl CY e 00 02 03 01 14 15 SO 30 No Ac 59 -0 -1 .6 PE 47 t ti 70 3- 2- 99 RS 45 Av ve 01 20 20 ai 31 09 09 FA la 4 [place] bl LY e DR UG AD 00 02 03 01 60 30 SO 30 No Ac VA 17 -0 -1 .0 PE 47 t ti IR 30 3- 2- 00 RS 47 Av ve 69 20 20 ai 25 60 09 09 FA la 0- 0 [place] bl [address] CHRISTY SHER US RI 00 02 03 01 6. 15 SO 30 No Ac OV 08 -0 -1 70 PE 47 t ti EN 51 3- 2- 0 RS 46 Av ve TI 13 20 20 ai L 20 09 09 FA la HF 1 [place] bl A LY e 90 DR GARCIA IN LE R RI 64 01 02 01 30 30 SO 30 No Ac EV 76 -1 -2 .0 PE 35 t ti AC 40 5- 6- 00 RS 42 Av ve ID 04 20 20 ai 61 [address] 3 [place] bl LY e 30 DR MG UG CA PS UL E 00 08 02 03 36 30 YO 16 No Ac 18 -2 -2 0. UR 66 t ti 57 2- 6- 00 2 Av ve 32 20 20 0 PH ai 26 08 09 AR la 0 MA bl CY e 00 02 02 00 20 10 SO 30 JU Ac 17 -1 -2 .0 PE 58 DY ti 22 6- 6- 00 RS 59 ve 98 20 20 NA 57 09 09 FA TA 0 WV LI LY E E UG 00 02 02 00 51 13 SO 30 PEREZ Ac 09 -1 -2 .0 PE 61 RV ti 50 9- 6- 00 RS 28 EY ve 08 20 20 65 09 09 FA RODOLFO [address] L[address] UG RI 00 02 02 00 30 30 SO 30 No Ac EM 04 -1 -2 .0 PE 61 t ti AR 61 9- 6- 00 RS 29 Av ve IN 10 20 20 ai 48 09 09 FA la 1. 1 [place] bl [address] NIKKY TA BL ET CI 55 02 02 00 10 10 SO 30 No Ac RI 11 -0 -1 .0 PE 50 t ti OF 10 5- 2- 00 RS 21 Av ve LO 12 20 20 ai XA 70 09 09 FA la CI 1 WV bl N LY e HC L 50 UG 0 MG TA B AD 00 02 02 00 60 30 SO 30 No Ac VA 17 -0 -1 .0 PE 47 t ti IR 30 3- 2- 00 RS 47 Av ve 69 20 20 ai 25 60 09 09 FA la 0- 0 [place] bl [address] CHRISTY SHER US RI 00 02 02 00 6. 15 SO 30 No Ac OV 08 -0 -1 70 PE 47 t ti EN 51 3- 2- 0 RS 46 Av ve TI 13 20 20 ai L 20 09 09 FA la HF 1 [place] bl A LY e 90 DR MC UG G IN PEREZ LE R AZ 64 02 02 00 6. 5 SO 30 No Ac IT 67 -0 -1 00 PE 50 t ti HR 90 5- 2- 0 RS 22 Av ve OM 96 20 20 ai YC 10 09 09 FA la IN 5 WV bl LY e [address] MG UG TA BL ET 00 02 02 00 21 6 SO 30 No Ac 55 -0 -1 .0 PE 49 t ti 50 5- 2- 00 RS 74 Av ve 30 20 20 ai 13 09 09 FA la 8 [place] bl LY e DR UG 00 02 02 00 14 15 SO 30 No Ac 59 -0 -1 .6 PE 47 t ti 70 3- 2- 99 RS 45 Av ve 01 20 20 ai 31 09 09 FA la 4 [place] bl LY e DR UG SE 31 12 01 01 8. 30 SO 30 No Ac RT 72 -1 -3 00 PE 11 t ti RA 20 5- 0- 0 RS 12 Av ve LI 21 20 20 ai NE 40 08 09 FA la 5 WV bl HC LY e L 10 DR 0 UG MG TA BL ET 59 01 01 00 7. 20 SO 30 No Ac 31 -1 -3 29 PE 35 t ti 00 5- 0- 9 RS 45 Av ve 17 20 20 ai 78 09 09 FA la 0 [place] bl LY e DR UG RI 00 01 01 00 30 30 SO 27 No Ac EM 04 -1 -3 .0 PE 32 t ti AR 61 7- 0- 00 RS 20 Av ve IN 10 20 20 ai 49 08 09 FA la 1. 1 [place] bl [address] UG TA BL ET 00 01 01 00 30 30 SO 30 No Ac 30 -1 -3 .0 PE 35 t ti 03 5- 0- 00 RS 42 Av ve 04 20 20 ai 61 09 09 FA la 3 [place] bl LY e DR UG NA 68 12 01 01 60 30 SO 30 No Ac RI 46 -0 -3 .0 PE 01 t ti OX 20 4- 0- 00 RS 54 Av ve EN 19 20 20 ai 00 08 09 FA la 50 5 W[place] bl [address] TA UG BL ET ME 00 01 01 00 30 10 SO 30 No Ac TH 14 -1 -3 .0 PE 35 t ti OC 31 5- 0- 00 RS 41 Av ve AR 29 20 20 ai BA 00 09 09 FA la MO 1 WV bl L LY e [address] MG UG TA BL ET 00 01 01 00 12 30 SO 30 No Ac 60 -1 -3 0. PE 35 t ti 35 5- 0- 00 RS 43 Av ve 46 20 20 0 ai 83 09 09 FA la 2 [place] bl LY e DR UG 00 12 01 00 47 11 SO 30 No Ac 12 -3 -1 3. PE 21 t ti 10 0- 5- 00 RS 34 Av ve 63 20 20 0 ai 81 08 09 FA la 6 [place] bl LY e DR UG 63 12 01 00 60 30 SO 30 No Ac 82 -3 -1 .0 PE 21 t ti 40 0- 5- 00 RS 33 Av ve 00 20 20 ai 81 08 09 FA la 0 [place] bl LY e DR UG 00 08 01 02 36 30 YO 16 No Ac 18 -2 -0 0. UR 66 t ti 57 2- 1- 00 2 Av ve 32 20 20 0 PH ai 26 08 09 AR la 0 MA bl CY e 00 08 01 03 30 30 SO 29 PE Ac 30 -1 -0 .0 PE 04 NA ti 03 1- 1- 00 RS 83 ve 04 20 20 RAUL 61 08 09 FA IS 3 [place] R LY DR UG CL 00 12 01 00 40 20 SO 30 No Ac ON 60 -1 -0 .0 PE 11 t ti AZ 32 5- 1- 00 RS 11 Av ve EP 94 20 20 ai AM 83 08 09 FA la 2 W[place] bl 0. LY e [address] UG TA BL ET SE 31 12 01 00 8. 30 SO 30 No Ac RT 72 -1 -0 00 PE 11 t ti RA 20 5- 1- 0 RS 12 Av ve LI 21 20 20 ai NE 40 08 09 FA la 5 WV bl HC LY e L 10 DR 0 UG MG TA BL ET NA 68 12 12 00 60 30 SO 30 RI Ac RI 46 -0 -1 .0 PE 01 NA ti OX 20 4- 8- 00 RS 54 LD ve EN 19 20 20 IN 00 08 08 FA I 50 5 WV AN 0 LY A MG M TA UG BL ET RI 00 08 12 03 6. 15 SO 29 RI Ac OV 08 -2 -1 70 PE 14 NA ti EN 51 2- 8- 0 RS 36 LD ve TI 13 20 20 IN L 20 08 08 FA I HF 1 WV AN A LY A 90 M MC UG G IN PEREZ LE R AZ 64 12 12 00 6. 5 SO 30 RI Ac IT 67 -0 -1 00 PE 01 NA ti HR 90 4- 8- 0 RS 53 LD ve OM 96 20 20 IN YC 10 08 08 FA I IN 4 WV AN LY A [address] MG UG TA BL ET 00 08 12 03 14 15 SO 29 RI Ac 59 -2 -1 .6 PE 14 NA ti 70 2- 8- 99 RS 37 LD ve 01 20 20 IN 31 08 08 FA I 4 [place] AN LY A M DR UG RI 00 01 12 07 30 30 SO 27 RI Ac EM 04 -1 -1 .0 PE 32 NA ti AR 61 7- 8- 00 RS 21 LD ve IN 10 20 20 IN 49 08 08 FA I 1. 1 [place] AN [address] UG TA BL ET 52 11 12 00 1. 1 SO 29 PE Ac 26 -2 -0 00 PE 94 NA ti 80 6- 4- 0 RS 26 ve 52 20 20 RAUL 10 08 08 FA IS [address] [place] [address] LY [address] UG AD 00 06 11 03 60 30 SO 28 RI Ac VA 17 -2 -2 .0 PE 68 NA ti IR 30 0- 0- 00 RS 68 LD ve 69 20 20 IN 25 60 08 08 FA I 0- 0 [place] AN [address] SK UG US ME 00 11 11 00 15 5 SO 29 RI Ac TH 14 -0 -2 .0 PE 75 NA ti OC 31 6- 0- 00 RS 90 LD ve AR 29 20 20 IN BA 00 08 08 FA I MO 1 W[place] AN L LY A [address] MG UG TA BL ET 00 08 11 02 30 30 SO 29 PE Ac 30 -1 -2 .0 PE 04 NA ti 03 1- 0- 00 RS 83 ve 04 20 20 RAUL 61 08 08 FA IS [address] [place] [address] UG 00 08 11 02 14 15 SO 29 RI Ac 59 -2 -2 .6 PE 14 NA ti 70 2- 0- 99 RS 37 LD ve 01 20 20 IN 31 08 08 FA I 4 [place] AN LY A M DR UG RI 00 08 11 02 6. 15 SO 29 RI Ac OV 08 -2 -2 70 PE 14 NA ti EN 51 2- 0- 0 RS 36 LD ve TI 13 20 20 IN L 20 08 08 FA I HF 1 W[place] AN A LY A [address] MC UG G IN PEREZ LE R 00 08 11 01 36 30 YO 16 RI Ac 18 -2 -2 0. UR 66 NA ti 57 2- 0- 00 2 LD ve 32 20 20 0 PH IN 26 08 08 AR I 0 MA AN CY A M DI 00 10 10 00 60 30 SO 29 No Ac CY 59 -1 -2 .0 PE 58 t ti CL 10 7- 3- 00 RS 67 Av ve OM 79 20 20 ai IN 50 08 08 FA la E 1 WV bl [address] UG TA BL ET MARKS 00 10 10 00 20 10 SO 29 RI Ac LF 60 -0 -2 .0 PE 52 NA ti AM 35 9- 3- 00 RS 93 LD ve ET 78 20 20 IN HO 12 08 08 FA I XA 8 W[place] AN ZO LY A LE M -T DR TITUS UG DS TA BL ET RI 00 01 10 06 30 30 SO 27 RI Ac EM 04 -1 -2 .0 PE 32 NA ti AR 61 7- 3- 00 RS 21 LD ve IN 10 20 20 IN 49 08 08 FA I 1. 1 [place] AN [address] SHER TA BL ET AD 00 06 10 02 60 30 SO 28 RI Ac VA 17 -2 -0 .0 PE 68 NA ti IR 30 0- 9- 00 RS 68 LD ve 69 20 20 IN 25 60 08 08 FA I 0- 0 [place] AN [address] HARRISON UG US RI 10 09 10 00 20 5 SO 29 No Ac OM 70 -2 -0 .0 PE 39 t ti ET 20 2- 9- 00 RS 22 Av ve PEREZ 00 20 20 ai ZI 31 08 08 FA la NE 0 W[place] bl LY e 25 DR VENCES UG TA BL ET 65 09 10 00 56 14 SO 29 No Ac 48 -2 -0 .0 PE 39 t ti 30 2- 9- 00 RS 23 Av ve 49 20 20 ai 51 08 08 FA la 4 WV bl LY e UG 00 08 10 01 30 30 SO 29 No Ac 30 -1 -0 .0 PE 04 t ti 03 1- 9- 00 RS 83 Av ve 04 20 20 ai 61 08 08 FA la 3 [place] bl LY e DR UG TR 65 09 09 00 90 23 SO 29 No Ac AM 16 -1 -2 .0 PE 32 t ti AD 20 5- 6- 00 RS 91 Av ve OL 62 20 20 ai 71 08 08 FA la HC 1 WV bl L LY e 50 DR VENCES UG TA BL ET RI 00 08 09 01 6. 15 SO 29 No Ac OV 08 -2 -2 70 PE 14 t ti EN 51 2- 6- 0 RS 36 Av ve TI 13 20 20 ai L 20 08 08 FA la HF 1 WV bl A LY e 90 DR CAMPBELL UG G IN PEREZ LE R GE 00 04 09 03 60 30 SO 28 No Ac MF 09 -0 -2 .0 PE 10 t ti IB 30 8- 6- 00 RS 90 Av ve RO 67 20 20 ai ZI 00 08 08 FA la L 5 WV bl 60 LY e [address] UG TA BL ET 00 08 09 01 14 15 SO 29 No Ac 59 -2 -2 .6 PE 14 t ti 70 2- 6- 99 RS 37 Av ve 01 20 20 ai 31 08 08 FA la 4 [place] bl LY e DR UG TR 50 09 09 00 30 30 SO 29 No Ac AZ 11 -1 -2 .0 PE 32 t ti OD 10 5- 6- 00 RS 90 Av ve ON 43 20 20 ai E 30 08 08 FA la 50 3 [place] bl LY e MG DR TIFFANY UG BL ET 49 08 09 00 30 10 SO 29 No Ac 88 -2 -1 .0 PE 18 t ti 40 8- 1- 00 RS 87 Av ve 77 20 20 ai 80 08 08 FA la 5 [place] bl LY e DR UG RI 00 01 09 05 30 30 SO 27 No Ac EM 04 -1 -1 .0 PE 32 t ti AR 61 7- 1- 00 RS 21 Av ve IN 10 20 20 ai 49 08 08 FA la 1. 1 [place] bl [address] UG TA BL ET RI 00 08 08 00 6. 15 SO 29 No Ac OV 08 -2 -2 70 PE 14 t ti EN 51 2- 8- 0 RS 36 Av ve TI 13 20 20 ai L 20 08 08 FA la HF 1 WV bl A LY e 90 DR MC UG G IN PEREZ LE R 00 08 08 00 36 30 YO 16 No Ac 18 -2 -2 0. UR 66 t ti 57 2- 8- 00 2 Av ve 32 20 20 0 PH ai 26 08 08 AR la 0 MA bl CY e RI 37 03 08 04 28 28 SO 28 No Ac IL 00 -2 -2 .0 PE 02 t ti OS 00 7- 8- 00 RS 87 Av ve EC 35 20 20 ai 90 08 08 FA la OT 7 WV bl C LY e [address] UG MG TA BL ET 00 08 08 00 14 15 SO 29 No Ac 59 -2 -2 .6 PE 14 t ti 70 2- 8- 99 RS 37 Av ve 01 20 20 ai 31 08 08 FA la 4 [place] bl LY e DR UG 00 08 08 00 30 30 SO 29 No Ac 30 -1 -2 .0 PE 04 t ti 03 1- 8- 00 RS 83 Av ve 04 20 20 ai 61 08 08 FA la 3 [place] bl LY e DR UG 00 06 08 02 14 15 SO 28 No Ac 59 -0 -1 .6 PE 56 t ti 70 3- 4- 99 RS 61 Av ve 01 20 20 ai 31 08 08 FA la 4 [place] bl LY e DR UG RI 00 06 08 02 6. 15 SO 28 No Ac OV 08 -0 -1 70 PE 56 t ti EN 51 3- 4- 0 RS 62 Av ve TI 13 20 20 ai L 20 08 08 FA la HF 1 W[place] bl A LY e 90 DR CAMPBELL UG G IN PEREZ LE R AD 00 06 08 01 60 30 SO 28 No Ac VA 17 -2 -1 .0 PE 68 t ti IR 30 0- 4- 00 RS 68 Av ve 69 20 20 ai 25 60 08 08 FA la 0- 0 [place] bl [address] HARRISON UG US GE 00 04 07 02 60 30 SO 28 No Ac MF 09 -0 -1 .0 PE 10 t ti IB 30 8- 7- 00 RS 90 Av ve RO 67 20 20 ai ZI 00 08 08 FA la L 5 WV bl 60 L[address] UG TA BL ET RI 37 03 07 03 28 28 SO 28 No Ac IL 00 -2 -1 .0 PE 02 t ti OS 00 7- 7- 00 RS 87 Av ve EC 35 20 20 ai 90 08 08 FA la OT 7 WV bl C LY e [address] UG MG TA BL ET MARKS 00 07 07 00 12 30 SO 28 No Ac CR 59 -1 -1 0. PE 83 t ti AL 10 7- RS 73 Av ve FA 78 20 20 0 ai TE 00 08 08 FA la 1 5 WV bl LY e GM DR TA UG BL ET RI 00 01 07 04 30 30 SO 27 No Ac EM 04 -1 -1 .0 PE 32 t ti AR 61 7- 7- 00 RS 21 Av ve IN 10 20 20 ai 49 08 08 FA la 1. 1 WV bl [address] UG TA BL ET PE 45 07 07 00 60 30 SO 28 No Ac RM 80 -1 -1 .0 PE 83 t ti ET 20 1- 7- 00 RS 74 Av ve HR 26 20 20 ai IN 93 08 08 FA la 7 WV bl 5% LY e CR EA UG M RI 00 06 07 01 6. 15 SO 28 No Ac OV 08 -0 -0 70 PE 56 t ti EN 51 3- 3- 0 RS 62 Av ve TI 13 20 20 ai L 20 08 08 FA la HF 1 WV bl A LY e 90 DR VOGEL G IN PEREZ LE R 00 06 07 00 21 6 SO 28 No Ac 55 -2 -0 .0 PE 68 t ti 50 0- 3- 00 RS 67 Av ve 30 20 20 ai 13 08 08 FA la 8 [place] bl LY e DR SHER 00 06 07 01 14 15 SO 28 No Ac 59 -0 -0 .6 PE 56 t ti 70 3- 3- 99 RS 61 Av ve 01 20 20 ai 31 08 08 FA la 4 [place] bl LY e DR SHER AZ 00 06 07 00 6. 5 SO 28 No Ac IT 78 -2 -0 00 PE 68 t ti HR 11 0- 3- 0 RS 66 Av ve OM 49 20 20 ai YC 66 08 08 FA la IN 8 WV bl LY e [address] VENCES UG TA BL ET AD 00 06 07 00 60 30 SO 28 No Ac VA 17 -2 -0 .0 PE 68 t ti IR 30 0- 3- 00 RS 68 Av ve 69 20 20 ai 25 60 08 08 FA la 0- 0 WV bl [address] CHRISTY SHER US RI 37 03 06 02 28 28 SO 28 No Ac IL 00 -2 -1 .0 PE 02 t ti OS 00 7- 2- 00 RS 87 Av ve EC 35 20 20 ai 90 08 08 FA la OT 7 WV bl C LY e [address] SHER MG TA BL ET 00 06 06 00 14 15 SO 28 No Ac 59 -0 -1 .6 PE 56 t ti 70 3- 2- 99 RS 61 Av ve 01 20 20 ai 31 08 08 FA la 4 [place] bl LY e DR SHER RI 00 06 06 00 6. 15 SO 28 No Ac OV 08 -0 -1 70 PE 56 t ti EN 51 3- 2- 0 RS 62 Av ve TI 13 20 20 ai L 20 08 08 FA la HF 1 WV bl A LY e 90 DR VOGEL G IN PEREZ LE R 00 05 06 00 30 30 SO 28 No Ac 00 -2 -0 .0 PE 49 t ti 60 3- 5- 00 RS 01 Av ve 11 20 20 ai 73 08 08 FA la 1 [place] bl LY e DR SHER 64 05 06 00 15 7 SO 28 No Ac 45 -2 -0 .0 PE 50 t ti 50 7- 5- 00 RS 75 Av ve 99 20 20 ai 39 08 08 FA la 4 W[place] bl LY e DR UG LO 24 05 06 00 30 30 SO 28 No Ac RA 38 -2 -0 .0 PE 49 t ti TA 50 3- 5- 00 RS 00 Av ve DI 47 20 20 ai NE 17 08 08 FA la 8 WV bl [address] UG TA BL ET RI 00 01 06 03 30 30 SO 27 No Ac EM 04 -1 -0 .0 PE 32 t ti AR 61 7- 5- 00 RS 21 Av ve IN 10 20 20 ai 49 08 08 FA la 1. 1 WV bl [address] UG TA BL ET BE 68 05 06 00 28 7 SO 28 No Ac NZ 38 -2 -0 .0 PE 49 t ti ON 20 3- 5- 00 RS 02 Av ve AT 24 20 20 ai AT 80 08 08 FA la E 1 WV bl 20 LY [address] UG CA PS UL E 00 05 06 00 6. 5 SO 28 No Ac 37 -2 -0 00 PE 48 t ti 81 3- 5- 0 RS 98 Av ve 53 20 20 ai 38 08 08 FA la 3 WV bl LY e DR UG GE 00 04 06 01 60 30 SO 28 No Ac MF 09 -0 -0 .0 PE 10 t ti IB 30 8- 5- 00 RS 90 Av ve RO 67 20 20 ai ZI 00 08 08 FA la L 5 WV bl 60 LY [address] UG TA BL ET 00 05 05 00 14 15 SO 28 No Ac 59 -1 -2 .6 PE 38 t ti 70 2- 2- 99 RS 43 Av ve 01 20 20 ai 31 08 08 FA la 4 W[place] bl LY e DR UG RI 37 03 05 01 28 28 SO 28 No Ac IL 00 -2 -2 .0 PE 02 t ti OS 00 7- 2- 00 RS 87 Av ve EC 45 20 20 ai 50 08 08 FA la OT 3 WV bl C LY e [address] UG MG TA BL ET 58 04 05 01 30 30 SO 28 No Ac 17 -1 -2 .0 PE 12 t ti 70 0- 2- 00 RS 96 Av ve 30 20 20 ai 90 08 08 FA la 4 [place] bl LY e DR UG RI 00 05 05 00 6. 15 SO 28 No Ac OV 08 -1 -2 70 PE 38 t ti EN 51 2- 2- 0 RS 42 Av ve TI 13 20 20 ai L 20 08 08 FA la HF 1 WV bl A LY e 90 DR MC UG G IN PEREZ LE R 58 04 05 00 10 10 SO 28 No Ac 17 -2 -0 .0 PE 22 t ti 70 2- 8- 00 RS 93 Av ve 30 20 20 ai 10 08 08 FA la 4 W[place] bl LY e DR UG 00 03 05 01 14 15 SO 28 No Ac 59 -2 -0 .6 PE 02 t ti 70 7- 8- 99 RS 61 Av ve 01 20 20 ai 31 08 08 FA la 4 [place] bl LY e DR UG RI 00 03 05 01 6. 15 SO 28 No Ac OV 08 -2 -0 70 PE 02 t ti EN 51 7- 8- 0 RS 62 Av ve TI 13 20 20 ai L 20 08 08 FA la HF 1 WV bl A LY e 90 DR CAMPBELL UG G IN PEREZ LE R TR 65 04 05 00 40 10 SO 28 No Ac AM 16 -2 -0 .0 PE 22 t ti AD 20 2- 8- 00 RS 94 Av ve OL 62 20 20 ai 75 08 08 FA la HC 0 WV bl L LY e 50 DR MG UG TA BL ET AZ 00 04 04 00 6. 5 SO 28 No Ac IT 78 -0 -2 00 PE 10 t ti HR 11 8- 4- 0 RS 91 Av ve OM 49 20 20 ai YC 66 08 08 FA la IN 8 WV bl LY e [address] MG UG TA BL ET 63 04 04 00 40 5 SO 28 No Ac 82 -0 -2 .0 PE 10 t ti 40 8- 4- 00 RS 92 Av ve 00 20 20 ai 81 08 08 FA la 0 W[place] bl LY e DR UG 58 04 04 00 30 30 SO 28 No Ac 17 -1 -2 .0 PE 12 t ti 70 0- 4- 00 RS 96 Av ve 30 20 20 ai 90 08 08 FA la 4 [place] bl LY e DR UG RI 00 01 04 02 30 30 SO 27 No Ac EM 04 -1 -2 .0 PE 32 t ti AR 61 7- 4- 00 RS 21 Av ve IN 10 20 20 ai 49 08 08 FA la 1. 1 WV bl [address] UG TA BL ET GE 00 04 04 00 60 30 SO 28 No Ac MF 09 -0 -2 .0 PE 10 t ti IB 30 8- 4- 00 RS 90 Av ve RO 67 20 20 ai ZI 00 08 08 FA la L 5 WV bl 60 LY [address] UG TA BL ET TR 65 03 04 00 30 7 SO 27 No Ac AM 16 -2 -1 .0 PE 95 t ti AD 20 0- 7- 00 RS 32 Av ve OL 62 20 20 ai 75 08 08 FA la HC 0 WV bl L LY e 50 DR MG UG TA BL ET 00 03 04 00 30 30 SO 27 No Ac 09 -2 -1 .0 PE 95 t ti 35 0- 7- 00 RS 33 Av ve 50 20 20 ai 20 08 08 FA la 1 [place] bl LY e DR UG 00 01 04 02 14 15 SO 27 No Ac 59 -3 -1 .6 PE 44 t ti 70 1- 7- 99 RS 57 Av ve 01 20 20 ai 31 08 08 FA la 4 [place] bl LY e DR UG RI 00 01 04 02 6. 15 SO 27 No Ac OV 08 -3 -1 70 PE 44 t ti EN 51 1- 7- 0 RS 56 Av ve TI 13 20 20 ai L 20 08 08 FA la HF 1 WV bl A LY e 90 DR CAMPBELL UG G IN PEREZ LE R RI 37 03 04 00 28 28 SO 28 No Ac IL 00 -2 -1 .0 PE 02 t ti OS 00 7- 0- 00 RS 87 Av ve EC 45 20 20 ai 50 08 08 FA la OT 3 WV bl C LY e [address] UG MG TA BL ET RI 00 03 04 00 6. 15 SO 28 No Ac OV 08 -2 -1 70 PE 02 t ti EN 51 7- 0- 0 RS 62 Av ve TI 13 20 20 ai L 20 08 08 FA la HF 1 WV bl A LY e 90 DR CAMPBELL UG G IN PEREZ LE R 00 03 04 00 14 15 SO 28 No Ac 59 -2 -1 .6 PE 02 t ti 70 7- 0- 99 RS 61 Av ve 01 20 20 ai 31 08 08 FA la 4 [place] bl LY e DR UG RI 37 01 03 01 28 28 SO 27 No Ac IL 00 -1 -2 .0 PE 26 t ti OS 00 4- 6- 00 RS 50 Av ve EC 45 20 20 ai 50 08 08 FA la OT 3 WV bl C LY e [address] UG MG TA BL ET 00 01 03 01 14 15 SO 27 No Ac 59 -3 -2 .6 PE 44 t ti 70 1- 6- 99 RS 57 Av ve 01 20 20 ai 31 08 08 FA la 4 [place] bl LY e DR UG 00 01 03 00 14 15 SO 27 No Ac 59 -3 -2 .6 PE 44 t ti 70 1- 6- 99 RS 57 Av ve 01 20 20 ai 31 08 08 FA la 4 [place] bl LY e DR UG RI 00 01 03 01 30 30 SO 27 No Ac EM 04 -1 -2 .0 PE 32 t ti AR 61 7- 6- 00 RS 21 Av ve IN 10 20 20 ai 49 08 08 FA la 1. 1 WV bl [address] UG TA BL ET RI 00 01 03 01 6. 15 SO 27 No Ac OV 08 -3 -2 70 PE 44 t ti EN 51 1- 6- 0 RS 56 Av ve TI 13 20 20 ai L 20 08 08 FA la HF 1 WV bl A LY e 90 DR MC UG G IN PEREZ LE R AZ 00 01 03 00 6. 5 SO 27 No Ac IT 78 -1 -2 00 PE 32 t ti HR 11 7- 5- 0 RS 19 Av ve OM 49 20 20 ai YC 66 08 08 FA la IN 8 WV bl LY e [address] MG UG TA BL ET RI 00 01 03 00 30 30 SO 27 No Ac EM 04 -1 -2 .0 PE 32 t ti AR 61 7- 5- 00 RS 21 Av ve IN 10 20 20 ai 49 08 08 FA la 1. 1 WV bl [address] UG TA BL ET RI 68 12 03 01 14 14 SO 27 No Ac OM 38 -1 -2 .0 PE 05 t ti ET 20 8- 5- 00 RS 16 Av ve PEREZ 04 20 20 ai ZI 11 07 08 FA la NE 0 WV bl LY e 25 DR MG UG TA BL ET RI 37 01 03 00 28 28 SO 27 No Ac IL 00 -1 -2 .0 PE 26 t ti OS 00 4- 5- 00 RS 50 Av ve EC 45 20 20 ai 50 08 08 FA la OT 3 WV bl C LY e [address] UG MG TA BL ET RI 00 10 03 03 6. 15 SO 26 No Ac OV 08 -2 -2 70 PE 59 t ti EN 51 9- 4- 0 RS 33 Av ve TI 13 20 20 ai L 20 07 08 FA la HF 1 WV bl A LY e 90 DR MC UG G IN PEREZ LE R 00 09 03 05 14 15 SO 26 No Ac 59 -1 -2 .6 PE 21 t ti 70 7- 4- 99 RS 28 Av ve 01 20 20 ai 31 07 08 FA la 4 [place] bl LY e DR UG RI 00 11 03 01 30 30 SO 26 No Ac EM 04 -0 -2 .0 PE 67 t ti AR 61 7- 4- 00 RS 61 Av ve IN 10 20 20 ai 29 07 08 FA la 0. 1 WV bl [address] LY [address] NIKKY ALLEN BL ET Procedures Procedure DOS Code Location Performer Comment NJX 16091 [facility] DX[facility] SBST INC INC INTRLMNR LMBR/SAC W/IMG GDN LIPID 57654 [facility] PANEL 7 [facility] INC INC COLLECTIO 22607 [facility]ESTVEE [facility] N VENOUS 7 [facility] [place] [address] [facility] FREE [facility] THYROXINE INC INC GENERAL 64112 [facility] PANEL INC INC CYANOCOBA 66085 ABBIESTEVE LEIVA KAILEY 7 [facility] VITAMIN INC INC B-[address] [place] [address] ABBIESTEVE LE[facility] FOLIC 7 [facility] ACID INC INC SERUM GENERAL 17181 [facility] PANEL INC INC RADEX 31012 [facility] FOOT 7 EMILY COMPLETE EMERGENCY MINIMUM 3 PHYS VIEWS DRUG TEST 91840 [facility] PRSMV 7 [facility] QUAL DIR INC INC OPTICAL OBS PER DAY DRUG TEST G0480 [facility] DEFINITV 7 [facility] DR ID INC INC METH P DAY 1-7 DRUG CL COMPREHEN 72930 [facility] SIVE 7 [facility] METABOLIC [facility] PANEL BLOOD 27392 [facility] COUNT 7 [facility] COMPLETE [facility] AUTO&AUTO DIFRNTL WBC LACTATE 17880 [facility] DEHYDROGE 7 [facility] NASE [facility]DH [facility] RADIOLOGI 80960 [facility] C EXAM 6 [facility] KNEE INC INC COMPLETE 4/MORE VIEWS DUP-SCAN 92841 [facility] XTR VEINS 6 [facility] INC INC UNILATERA L/LIMITED STUDY DRUG TST G0477 [facility] PRESUMP;C 6 [facility] PBL BEING INC INC READ DC OPT OBV ONLY DRUG TEST G0481 [facility] DEFINITV [address] [facility] [address] [facility] [address] ID INC INC METH P DAY 8-14 DRUG CL RADIOLOGI 47666 [facility] C EXAM 6 EIDER GIOVANNA CHEST 2 RADIOLOGY VIEWS ASSOCIAT FRONTAL&L ATERAL NEUROPLAS 90555 [facility] [place], TY 6 [facility] &/TRANSPO MEDICAL S MEDIAN G NRV CARPAL TUNNE TENDON 53529 [facility] [place], SHEATH 6 [facility] INCISION MEDICAL G DRUG TST G0477 [facility] PRESUMP;C 6 [facility] PBL BEING INC INC READ DC OPT OBV ONLY ECG 65617 [facility] ROUTINE [address] [place] [address] W/LEAST 12 LDS TRCG ONLY W/O I&R COLLECTIO 52525 [facility] N VENOUS [address] [place] [address] VENIPUNCT URE COMPREHEN 94711 [facility] SIVE [address] [place] [address] PANEL BLOOD 25444 [facility] COUNT [address] [place] [address] AUTO&AUTO DIFRNTL WBC RADIOLOGI 98912 [facility] C EXAM [address] VIEWS FRONTAL&L ATERAL TB CELL 55435 [facility] 6 [facility] RES[facility]SE GAMMA INTERFERO N COLLECTIO 53121 [facility] VEN[facility] [address] [place] [address] VENIPUNCT URE NEEDLE 66512 [facility] EMG EA 6 ANALY EXTREMTY [facility] W/PARASPI PLLC NL AREA COMPLETE NERVE 53447 [facility] CONDUCTIO 6 ANALY N STUDIES [facility] 9-10 PLLC STUDIES COMPREHEN 11260 [facility]ERI SIVE 6 [facility] PANEL BLOOD 25082 LAB [facility] LAB SHER[facility] COUNT 6 [facility] COMPLETE [employer] [facility] AUTO&AUTO DIFRNTL WBC LACTATE 82331 LAB [facility] LAB SH[facility]I DEHYDROGE 6 [facility] NASE [facility] WRIST L3908 [facility] HAND 6 BRACING, BRACING, ORTHOSIS INC INC EXT CONTROL COCK-UP PREFAB RADIOLOGI 70598 [facility] EXAM 6 SABA CHEST 2 RADIOLOGY VIEWS ASSOCIAT FRONTAL&L ATERAL DRUG TEST G0481 [facility] DEFINITV [address] [address] ID INC INC METH P DAY 8-14 DRUG CL DRUG TST G0477 [facility] ABBIE PRESUMP;C 6 [facility] PBL BEING INC INC READ DC OPT OBV ONLY ADMN SET A7005 AMAYA AMAYA W/SM VOL 6 HOME HOME NONFILTR MEDICAL MEDICAL NEBULIZR EQUIPME EQUIPME NON-DISPB L COLLECTIO 62599 [facility] N VENOUS 6 Y Y BLOOD [facility] VENIPUNCT URE RADEX 36347 [facility] HAND 2 6 Y Y VIEWS [facility] SEDIMENTA 46341 [facility] TION RATE 6 Y Y RBC [facility] AUTOMATED BLOOD 04470 [facility] COUNT 6 Y Y COMPLETE [facility] AUTO&AUTO DIFRNTL WBC RADEX 36783 [facility] SHOULDER 6 Y Y COMPLETE [facility] MINIMUM 2 VIEWS RADEX 31018 [place] [facility] WRIST 2 6 MEDICAL NARESH VIEWS SERV FOUNDATIO N COMPREHEN 17045 [facility] Y Y MET[facility]OLIC [facility] PANEL DRUG TST G0477 [facility] LEIV[facility] PRESUMP;C 6 [facility] PBL BEING INC INC READ DC OPT OBV ONLY 25 03140 LAB [facility] LAB SHERI HYDROXY 6 [facility] INCLUDES [facility] FRACTIONS IF PERFORMED BLOOD 21606 LAB [facility] LAB SHERI COUNT 6 [facility] COMPLETE [employer] AUTO&AUTO DIFRNTL WBC LACTATE 85067 [facility] LAB SHERI DEHYDROGE 6 [facility] NASE [facility] COMPREHEN 57197 LAB [facility] LAB SHERI SIVE 6 [facility] METABOLIC [facility] 66206 [facility] DIS[facility]GE 6 EMILY LEE DAY PHYSICIAN FANNYALNABILA MANAGEMEN SERVI MAR T > 30 MIN INITIAL 61458 [facility] 6 EMILY LEE CARE/DAY PHYSICIAN DECALVO 30 SERVI MAR MINUTES DRUG TST G0477 [facility] LE[facility] PRESUMP;C 6 [facility] PBL BEING INC INC READ DC OPT OBV ONLY DRUG TST G0477 [facility] LE[facility]A PRESUMP;C 6 [facility] PBL BEING INC INC READ DC OPT OBV ONLY RADIOLOGI 02265 [facility] C EXAM 6 [place] CHEST 2 RADIOLOGY VIEWS ASSOCIAT FRONTAL&L ATERAL DRUG 98778 ABBIE LEIVA SCREENING 6 [facility] INC INC BENZODIAZ EPINES 1-12 DRUG TST G0477 [facility] LE[facility]A PRESUMP;C 6 [facility] PBL BEING INC INC READ DC OPT OBV ONLY 3D 68181 ARLENE RUSHING RENDERING 6 REGIONAL GLE W/INTERP MEDICAL & HORACIO POSTPROCE SS SUPERVISI ON CT THORAX 16256 ARLENE MILLERMACK 6 REGIONAL GLE W/CONTRAS MEDICAL T HORACIO MATERIAL COMPREHEN 46023 LAB [facility] LAB SHERI SIVE 6 [facility] MET[facility] [facility] PANEL 25 46024 LAB SH[facility] LAB SHERI HYDROXY 6 [facility] INCLUDES [facility] [facility] FRACTIONS IF PERFORMED BLOOD 00126 LAB [facility] LAB SHERI COUNT 6 [facility] COMPLETE [employer] [facility] AUTO&AUTO DIFRNTL WBC LACTATE 13068 LAB [facility] LAB SHERI DEHYDROGE 6 [facility] NASE [facility] 3D 21035 [place] WILL ALL RENDERING 6 MEDICAL W/INTERP IMAGING & ASS POSTPROCE SS SUPERVISI ON MRI 54809 [place] WILL ALL SPINAL 6 MEDICAL CANAL IMAGING LUMBAR ASS W/O CONTRAST MATERIAL ECG 59433 [facility] ROUTINE 6 EMILY ECG EMERGENCY W/LEAST PHYS 12 LDS I&R ONLY DRUG TST G0477 [facility] PRESUMP;C 6 [facility] PBL BEING INC INC READ DC OPT OBV ONLY ECG 91428 [facility] ROUTINE 5 [facility] ECG INC INC W/LEAST 12 LDS TRCG ONLY W/O I&R ECHO 54140 [facility] LERMA GRE TTHRC R-T 5 MEDICAL 2D SERV W/WOM-MOD FOUNDATIO E COMPL N SPEC&COLR D INJECTION J1644 ABBIESTEVE LEIVA HEPARIN 5 [facility] SODIUM INC INC PER 1000 UNITS PROTHROMB 87114 ABBIE LEIVA IN TIME 5 [facility] INC INC CATHETER C1725 ABBIE LEIVA TRANSLUMI 5 [facility] NAL INC INC ANGIOPLAS TY NON-LASER GUIDE C1769 [facility]E LEIVA WIRE 5 [facility] INC INC BASIC 62995 ABBIESTEVE LEIVA METABOLIC 5 [facility] PANEL INC INC CALCIUM TOTAL THROMBOPL 12916 ABBIE LEIVA ASTIN 5 [facility] TIME INC INC PARTIAL PLASMA/WH OLE BLOOD CATH PLMT 57657 ABBIE LEIVA L HRT & 5 [facility] ARTS INC INC W/NJX & ANGIO IMG S&I INJECTION J2405 AB[facility]E LEIVA 5 [facility] ONDANSETR INC INC ON HCL PER 1 MG LOCM Q9967 ABBIE ABBIE [phone] 5 [facility] MG/ML INC INC IODINE CONCENTRA TION PER ML BLOOD 36096 AB[facility]E LEIVA COUNT 5 [facility] COMPLETE INC INC AUTO&AUTO DIFRNTL WBC RADEX 20876 [place] BEINE SHOULDER 5 MEDICAL JOELLE COMPLETE IMAGING MINIMUM 2 ASS VIEWS RADIOLOGI 60460 [facility] C EXAM 5 EIDER GIOVANNA CHEST 2 RADIOLOGY VIEWS ASSOCIAT FRONTAL&L ATERAL BLOOD 60542 LAB SHERI LAB SHERI COUNT 5 [facility] COMPLETE [employer] [facility] AUTO&AUTO DIFRNTL WBC LACTATE 10753 LAB SH[facility] LAB SHERI DEHYDROGE 5 [facility] NASE [facility] COMPREHEN 79997 LAB SHERI LAB SHERI SIVE 5 [facility] METABOLIC [facility] PANEL 25 49449 LAB SHER[facility] LAB SHERI HYDROXY 5 [facility] INCLUDES [employer] FRACTIONS IF PERFORMED RADEX 13029 [facility] COLON 5 W/SPEC HI RADIOLOGY RADIOLOGY DNS ASSOCIAT ASSOCIAT BARIUM W/WO GLUCAGON INJECTION J2250 ARLENE JACOBS 5 CO CO [facility]OLAM [facility] HCL PER 1 MG EGD 50229 ARLENE DIAZ TRANSORAL 5 CO HOSP LIAM BIOPSY SINGLE/MU LTIPLE RINGERS J7120 ARLENE JACOBS LACTATE 5 CO CO INFUSION [facility] UP TO 1000 CC COLONOSCO 53620 ARLENE DIAZ PY 5 CO HOSP LIAM W/BIOPSY SINGLE/MU LTIPLE CUL BACT 51276 ARLENE JACOBS AEROBIC 5 CO CO [facility] EXPRESS METHS DEFINITIV E EA ISOL INJECTION J3010 ARLENE JACOBS FENTANYL 5 CO [facility] 0.1 MG ANES 56120 ARLENE MEDRANO [facility] UPPER GI [address] [place] [address] [place] [address] ARLENE JACOBS SURG [address] [facility] GROSS&AIYANA ROSCOPIC EXAM INJECTION J2405 ARLENE JACOBS 5 CO [facility] ON HCL PER 1 MG RADIOLOGI 57569 [facility] C EXAM 5 EMILY CHEST 2 EMERGENCY VIEWS PHYS FRONTAL&L ATERAL ADMN SET A7005 YOUR YOUR W/SM VOL 5 PHARMACY PHARMACY [facility] NEBULIZR NON-DISPB L RADIOLOGI [address] [facility] C EXAM 5 EMILY JAM CHEST 2 EMERGENCY VIEWS PHYS FRONTAL&L ATERAL ECG [address] [facility] ROUTINE 5 EMILY JAM ECG EMERGENCY W/LEAST PHYS 12 LDS I&R ONLY INJECTION J1040 [facility] PHYSICIAN AIYANA METHYLPRE S GROUP DNISOLONE ACETATE 80 MG INJECTION J0696 [facility] PHYSICIAN AIYANA CEFTRIAXO S GROUP NE SODIUM PER 250 MG THERAPEUT 01841 [facility] 5 PHYSICIAN AIYANA PROPHYLAC S GROUP TIC/DX INJECTION SUBQ/[place] [address] ARLENE JACOBS TROPONIN 5 CO [facility] YVETTE BLOOD 36373 ARLENE JACOBS COUNT 5 CO [facility] AUTO&AUTO DIFRNTL WBC URNLS DIP 90696 ARLENE JACOBS 5 CO [facility] HOSPITAL LET REAGENT AUTO MICROSCOP Y RADIOLOGI 35180 [facility] C EXAM 5 CO CO CHEST 2 HOSPITAL HOSPITAL VIEWS FRONTAL&L ATERAL COLLECTIO 93147 ARLENE JACOBS N VENOUS 5 CO MA BLOOD [facility] VENIPUNCT URE CREATINE 83532 ARLENE JACOBS KINASE MB 5 CO [facility] ONLY COMPREHEN 03295 ARLENE JACOBS SIVE 5 CO MA METABOLIC [facility] PANEL UNCLASSIF J3490 ARLENE JACOBS IED DRUGS 5 CO [facility] CREATINE 76086 ARLENE JACOBS KINASE 5 CO [facility] THER 34998 ARLENE JACOBS PROPH/DX 5 CO MA NJX IV [facility] PUSH SINGLE/1S T SBST/DRUG ECG 01088 ARLENE JACOBS ROUTINE 5 CO MA ECG [facility] W/LEAST 12 LDS TRCG ONLY W/O I&R ECG [address] [facility] ROUTINE 5 EMILY JAM ECG EMERGENCY W/LEAST PHYS 12 LDS I&R ONLY RADIOLOGI [address] [facility] C 5 EMILY JAM EXAMINATI EMERGENCY ON CHEST PHYS SINGLE VIEW FRONTAL BLOOD 61219 ARLENE JACOBS COUNT 5 CO MA COMPLETE [facility] AUTO&AUTO DIFRNTL WBC RADIOLOGI 69668 [facility] C EXAM 5 CO CO CHEST 2 [facility] VIEWS FRONTAL&L ATERAL SEDIMENTA 81372 ARLENE JACOBS TION RATE 5 CO [facility]PITAL NON-AUTOM ATED COMPREHEN 46160 ARLENE JACOBS SIVE 5 CO CO METABOLIC [facility] PANEL RADEX 48804 [place] [facility] WRIST 2 5 MEDICAL Y JUS VIEWS SERV FOUNDATIO N RADEX 42430 [place] [facility] SPINE 5 MEDICAL Y JUS LUMBOSACR SERV AL 2/3 FOUNDATIO VIEWS N RADIOLOGI 40320 [place] [facility] C 5 MEDICAL Y JUS EXAMINATI SERV ON KNEE FOUNDATIO 1/2 VIEWS N RADEX 87744 [place] EDNAGOMER HAND 2 5 MEDICAL Y JUS VIEWS SERV FOUNDATIO N RADIOLOGI 62401 [facility] C EXAM 5 MEDICAL AYA MAR CHEST 2 SERV VIEWS FOUNDATIO FRONTAL&L N ATERAL BLOOD 78188 LAB [facility] LAB SHERI COUNT 4 [facility] COMPLETE [facility] AUTO&AUTO DIFRNTL WBC BASIC 24520 LAB SH[facility] LAB SHERI METABOLIC 4 MARVA [facility] PANEL [facility] CALCIUM TOTAL FLUORODEO A9552 ALMAZ KOO XYGLUCOSE [address] [facility] F-18 FDG CLINIC DX UP TO 45 MCI PET 99664 [facility] IMAGING [address] [facility] [place] [address] ARLENE MILLERMACK ABDOMEN & 4 REGIONAL GLE PELVIS MEDICAL W/O HORACIO CONTRAST MATERIAL CT THORAX 98970 ARLENE MILLERMACK W/O 4 REGIONAL GLE CONTRAST MEDICAL MATERIAL HORACIO RADEX 08720 JAC[facility] ALLEGANY SPINE 4 CO CO [facility] AL MINIMUM 4 VIEWS COMPREHEN 38739 LAB [facility] LAB [facility] SIVE 4 MARVA [facility] METABOLIC [facility] PANEL BLOOD 66080 LAB [facility] LAB [facility] COUNT 4 MARVA [facility] COMPLETE [facility] AUTO&AUTO DIFRNTL WBC IMMUNOASS 80393 LAB [facility] AY TUMOR 4 MARVA [facility]VA ANTIGEN [facility] QUANTITAT YVETTE CA 15-3 LACTATE 35778 LAB [facility] LAB [facility] DEHYDROGE 4 MARVA [facility] NASE LDH [facility] 25 75817 LAB [facility] HYDROXY 4 MARVA MARVA INCLUDES [facility] FRACTIONS IF PERFORMED LIPID 14177 QUEST QUEST PANEL 4 DIAGNOSTI DIAGNOSTI [facility] [place] [address] QUEST QUEST FREE 4 DIAGNOSTI DIAGNOSTI THYROXINE [facility] [address] [facility] 4 DIAGNOSTI DIAGNOSTI PANEL [facility] ADMN SET A7005 YOUR YOUR W/SM VOL 4 PHARMACY [facility]-DISPB L DRUG SCR G0434 [facility] GI[facility]NY [facility] NOT 4 CHROMATOG RAPHIC; ANY NUMBER PT ENC DRUG SCR G0434 [facility] GIOVANNY HAM NOT 4 CHROMATOG RAPHIC; ANY NUMBER PT ENC PRESSURIZ 39594 ARLENE JACOBS ED/NONPRE 4 CO CO SSURIZED [facility] INHALATIO N TREATMENT INJECTION J0744 ARLENE JACOBS 4 CO CO CIPROFLOX [facility] ACIN INTRAVENO US INFUS 200 MG INJECTION J2250 ARLENE JACOBS 4 CO CO MIDAZOLAM [facility] HCL PER 1 MG INJECTION J0330 ARLENE JACOBS 4 CO CO SUCCINYLC [facility] HOLINE CHLORIDE UP TO 20 MG INJECTION J2550 ARLENE [facility]ACOBS [facility] 50 MG INJECTION J2405 ARLENE JACOBS [facility] MG INJECTION J1170 [facility] MG RINGERS J7120 ARLENE JACOBS LACTATE 4 CO CO INFUSION [facility] UP TO 1000 CC INJECTION J1100 ARLENE JACOBS 4 CO CO DEXAMETHO [facility] SONE SODIUM PHOSPHATE 1 MG ANES LWR 77211 ARLENE ANDRÉS ALFONZO [facility]BD [facility] HERNIA REPAIR LAPS RPR 36104 ARLENE JACOBS INCISIONA 4 CO CO L HERNIA [facility] NCRC8/STR ANGULATED INFUSION J7050 ARLENE JACOBS NORMAL 4 CO CO SALINE [facility] SOLUTION 250 CC INJECTION J3010 ARLENE JACOBS FENTANYL 4 CO CO CITRATE [facility] 0.1 MG INJECTION J2710 [facility] 4 CO CO NEOSTIGMI [facility] NE METHYLSUL FATE UP TO 0.5 MG RADIOLOGI 58990 ARLENE JACOBS C EXAM 4 CO CO CHEST 2 [facility] VIEWS FRONTAL&L ATERAL ECG 24196 ARLENE JACOBS ROUTINE 4 CO CO ECG [facility] W/LEAST 12 LDS TRCG ONLY W/O I&R BLOOD 21405 ARLENE JACOBS COUNT 4 CO CO COMPLETE [facility] AUTO&AUTO DIFRNTL WBC URNLS DIP 76458 ARLENE JACOBS 4 CO CO STICK/TAB HOSPITAL HOSPITAL LET REAGENT AUTO MICROSCOP Y BASIC 08094 [facility] METABOLIC 4 [facility] CAL[facility]UM TOTAL URINLS 29188 ARIANA DIAZ- DIP 4 CLINIC SE LORRIE STICK/TAB LET REAGNT NON-AUTO MICRSCPY THERAPEUT 87914 ARIANA ARIANA IC 4 CLINIC CLINIC PROPHYLAC TIC/DX INJECTION SUBQ/IM THERAPEUT 70633 KENYA KENYA IC 4 HEN HEN PROPHYLAC TIC/DX INJECTION SUBQ/IM THERAPEUT 64592 ARIANA ARIANA IC 4 CLINIC CLINIC PROPHYLAC TIC/DX INJECTION SUBQ/IM INJECTION J1030 ARIANA DIAZ- 4 CLINIC SE [facility] METHYLPRE DNISOLONE ACETATE 40 MG THERAPEUT 85901 KENYA KENYA IC 4 HEN HEN PROPHYLAC TIC/DX INJECTION SUBQ/IM COMPUTER- 82166 ABBIE LEIVA AIDED 4 [facility] DETECTION INC INC SCREENING MAMMOGRAP HY SCREENING G0202 BEINEKE D BEINEKE D 4 MAMMOGRAP HY REID INCL CAD WHEN PERFORMD THERAPEUT 90733 ARIANA KENYA IC 4 CLINIC HEN PROPHYLAC TIC/DX INJECTION SUBQ/IM COMPREHEN 88017 LAB [facility] LAB SHERI SIVE 4 MARVA [facility] METABOLIC [place] [address] LAB [facility] LAB [facility]I FOLIC 4 MARVA [facility] ACID HOLDINGS HOLDINGS SERUM COLLECTIO 61812 ARIANA OLIVASLE N VENOUS 4 CLINIC CLINIC BLOOD VENIPUNCT URE BLOOD 28043 LAB [facility] LAB [facility] COUNT 4 MARVA [facility] COMPLETE [facility] HOLDINGS AUTOMATED IRON 89276 LAB [facility] LAB [facility]I BINDING 4 MARVA [facility] CAPACITY HOLDINGS HOLDINGS INJECTION J3420 ARIANA DIAZ- VIT B-12 [address] [facility] [facility] CYANOCOBA KAILEY TO 1000 MCG THERAPEUT 48528 ARIANA DIAZ- IC 4 [facility] PROPHYLAC TIC/DX INJECTION SUBQ/IM CYANOCOBA 00184 LAB SHERI LAB SHERI KAILEY 4 MARVA MARVA VITAMIN HOLDINGS HOLDINGS B-12 25 62492 LAB [facility] LAB SHERI HYDROXY 4 MARVA [facility]VA INCLUDES HOLDINGS HOLDINGS FRACTIONS IF PERFORMED ORGANIC 03828 LAB [facility] LAB SHERI ACID 1 4 MARVA [facility] QUANTITAT [place] [address] LAB SHERI LAB SHERI IRON 4 MARVA [facility] HOLDINGS HOLDINGS TB CELL 31633 [facility] MEDIATED 4 N N ANTIGN [facility] RESPNSE HOSPITA HOSPITA GAMMA INTERFERO N ANTIBODY 65393 [facility] BLASTOMYC 4 N N ES [facility] HOSPITA HOSPITA ANTIBODY 93275 [facility] COCCIDIOI 4 N N AMANDA [facility] HOSPITA HOSPITA ANTIBODY 59093 [facility] HISTOPLAS 4 N N MA [facility] HOSPITA HOSPITA COLLECTIO 38445 [facility] N VENOUS 4 N N BLOOD [facility] URE COLLECTIO 68853 ARLENE JACOBS N VENOUS 4 [facility] [place] [place] [address] [facility] THYROID 4 [facility] NG HORMONE TSH CALCIUM 30129 [facility] TOTAL 4 [facility] [place] [address] [facility] THYROXINE [address] [facility] [address] THORAX 59352 CISCO CISCO W/O 4 [place] [address] LABORATOR LABORATOR SURG 4 Y Y PATHOLOGY CORPORATI CORPORATI ON OF AM ON OF AM GROSS&AIYANA ROSCOPIC EXAM BLOOD 20877 LAB [facility] LAB SHERI COUNT 4 MARVA [facility] COMPLETE HOLDINGS HOLDINGS AUTOMATED LIPID 97069 LAB SHER[facility] LAB SHERI PANEL 4 MARVA MARVA HOLDINGS HOLDINGS COLLECTIO 89122 ARIANA DIAZ- N VENOUS [address] [facility] BLOOD VENIPUNCT URE CRYOTHERA 59771 ARIANA DIAZ- PY CO2 4 [facility] SLUSH LIQUID N2 ACNE COMPREHEN 35746 LAB SHERI LAB SHERI SIVE 4 MARVA MARVA METABOLIC HOLDINGS HOLDINGS PANEL ECG 98685 BUSHRA CARRASQUILLO ROUTINE 4 MEDICAL NAN ECG SERV W/LEAST FOUNDATIO 12 LDS N I&R ONLY L[place] V 25869 ANNMARIE ANNMARIE SURG 4 KARINA KARINA PATHOLOGY GROSS&[place] [address] ANNMARIE ANNMARIE SURG 4 KARINA KARINA PATHOLOGY GROSS&AIYANA ROSCOPIC EXAM PATH 49635 ANNMARIE ANGUIANO CONSLTJ 4 KARINA KARINA SURG 1ST BLK FROZEN SCTJ 1 SPEC BX/EXC 53015 KAYLYNN CHAIDEZ LYMPH 4 NHAN NHAN NODE OPEN DEEP CERVICAL NODE ANES 27192 MALONE AIYANA MALONE AIYANA ESOPH 4 THYRD LARYNX TRACH & LYMPH NECK 1YR TOTAL 51319 KAYLYNN CHAIDEZ THYROID 4 NHAN NHAN LOBEC UNI W/CONTRAL AT [facility] LOBEC ADMN SET A7005 YOUR YOUR W/SM VOL 4 PHARMACY PHARMACY NONFILST. [facility] NEBULIZR NON-DISPB L RADEX 19545 ARLENE JACOBS COLON 4 CO CO W/SPEC [facility] DNS BARIUM W/WO GLUCAGON INJECTION J2250 ARLENE JACOBS 4 CO CO [facility] HCL PER 1 MG EGD 33808 [facility] TRANSORAL 4 LAR LAR BIOPSY SINGLE/MU LTIPLE CUL BACT 00022 ARLENE JACOBS AEROBIC 4 CO CO ADDL [facility] METHS DEFINITIV E EA ISOL ANES 69943 ARLENE JACOBS UPPER GI 4 CO CO ENDOSCOPY [facility] PROXIMAL TO DUODENUM INJECTION J3010 ARLENE JACOBS FENTANYL 4 CO CO CITRATE [facility] 0.1 [place] [address] ARLENE JACOBS SURG 4 CO CO PATHOLOGY [facility] GROSS&AIYANA ROSCOPIC EXAM RINGERS J7120 ARLENE JACOBS LACTATE 4 CO CO INFUSION [facility] UP TO [address] SOFT 55646 ZHANG ZHANG TISSUE 4 SABA SABA NECK W/CONTRAS T MATERIAL AMB A0427 ARLENE JACOBS SERVICE [address] [place] [address] ALS AMBULANCE AMBULANCE EMERGENCY TRANSPORT LEVEL 1 ECG 73610 SADEK MOH SADEK MOH ROUTINE 4 ECG W/LEAST 12 LDS I&R ONLY GROUND A0425 [facility]ENE [facility] [place] [address] VICENTE ZHANG ABDOMEN & 4 SABA SABA PELVIS W/O CONTRAST MATERIAL RADEX 47552 MHC INC, MHC INC, FOREARM 2 4 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 VIEWS GISSEL CHAUHAN CO HOS CO HOS CYANOCOBA 28385 LAB SHERI LAB SHERI KAILEY 4 OF MARVA VITAMIN MARVA HOLDINGS B-12 HOLDINGS BLOOD 76982 LAB SHERI LAB SHERI COUNT 4 OF MARVA COMPLETE [facility] HOLDINGS AUTOMATED HOLDINGS IRON 06575 LAB SHERI LAB SHERI BINDING 4 OF MARVA CAPACITY [place] [address] LAB SHERI LAB SHERI IRON 4 OF MAR[place] [address] LAB SHERI LAB SHERI FOLIC 4 OF MARVA ACID MARVA HOLDINGS SERUM HOLDINGS COLLECTIO 76702 ARIANA DIAZ-DONNELL N VENOUS [address] [facility] BLOOD VENIPUNCT URE DRUG SCR G0434 GIOVANNY HAM GIOVANNY HAM NOT 4 CHROMATOG RAPHIC; ANY NUMBER PT ENC HEADGEAR A7035 AMAYA CONDE USED 4 HOME HOME W/POSITIV MEDICAL MEDICAL E AIRWAY EQUIPME EQUIPME PRESSURE DEVICE TUBING A7037 AMAYA CONDE USED WITH 4 HOME HOME POSITIVE MEDICAL MEDICAL AIRWAY EQUIPME EQUIPME PRESSURE DEVICE CANE INCL E0100 AMAYA AMAYA CANES 4 HOME HOME ALL MEDICAL MEDICAL MATERIAL EQUIPME EQUIPME ADJUSTBLE /FIX W/TIP FILTER A7038 AMAYA CONDE DISPBL 4 HOME HOME USED MEDICAL MEDICAL W/POS EQUIPME EQUIPME ARWAY PRESSURE DEVICE NASL A7034 AMAYA CONDE INTRFCE 4 HOME HOME POS ARWAY MEDICAL MEDICAL PRSS EQUIPME EQUIPME DEVC W/WO HEAD STRAP URINLS 99321 ARIANA DIAZ- DIP 4 [facility] STICK/TAB LET REAGNT NON-AUTO MICRSCPY COMPREHEN 33133 ARLENE JACOBS SIVE 4 CO CO [facility] PANEL BLOOD 49826 [facility] COUNT 4 CO CO [facility] AUTO&AUTO DIFRNTL WBC PRESSURIZ 56820 [facility] ED/NONPRE 4 CO CO SSURIZED [facility] INHALATIO N TREATMENT INJECTION J1170 [facility] 4 CO CO HYDROMORP [facility] BARBI UP TO 4 MG INJECTION J1885 [facility] 4 CO CO KETOROLAC [facility] TROMETHAM INE [place] [address] [place] [address] [facility] ABDOMEN & 4 SABA SABA PELVIS W/O CONTRST 1/> BODY RE CT THORAX 64274 [facility] W/O 4 N N CONTRAST COMMUNTIY COMMUNTIY MATERIAL HOSPITA HOSPITA BRNCDILAT 50250 [facility] RSPSE 4 N N SPMTRY COMMUNTIY COMMUNTIY PRE&POST- [place] [address] [facility] DIFFUSING 4 N N CAPACITY COMMUNTIY COMMUNTIY HOSPITA HOSPITA PLETHYSMO 75509 [facility] GRAPHY 4 N N LUNG COMMUNTIY COMMUNTIY VOLUMES HOSPITA HOSPITA W/WO AIRWAY RESIST ADMN SET A7003 YOUR YOUR SM VOL 4 PHARMACY PHARMACY NONFILTR LLC LLC PNEUMAT NEBULIZR DISPBL COMPRE 38690 MANDY GALVAN AUDIOMETR 4 LIAM LIAM Y THRESHOLD EVAL SP RECOGNIJ TYMPANOME 64660 MANDY GALVAN TRY 4 LIAM LIAM US SOFT 07424 [facility] UNIVERS TISSUE 4 Y Y HEAD & HOSPITAL HOSPITAL NECK REAL TIME IMGE [facility] G0463 [facility]PATI 4 Y Y T [facility] VIS[facility] ASSESS & MGMT PT ADMN SET A7003 YOUR YOUR SM VOL 3 PHARMACY PHARMACY NON[facility] LLC PNEUMAT NEBULIZR DISPBL LARYNGOSC 29579 MANDY GALVAN OPY 3 LIAM LIAM FLEXIBLE DIAGNOSTI C BLOOD 24102 [facility] COUNT 3 Y Y COMPLETE [facility] AUTO&AUTO DIFRNTL WBC SEDIMENTA 30710 [facility] TION RATE 3 Y Y RBC [facility] AUTOMATED COMPREHEN 61012 [facility] SIVE 3 Y Y METABOLIC [facility] [place] [address] [facility] THYROID 3 Y Y STIMULATI [facility] [place] [address] [facility] FREE 3 Y Y THYROXINE [facility] DRUG SCR G0434 GIOVANNY RICHARDSON NOT 3 CHROMATOG RAPHIC; ANY NUMBER PT ENC INJECTION J0696 ARIANA DIAZ- 3 [facility] CEFTRIAXO NE SODIUM PER [address] IC 3 CLINIC CLINIC PROPHYLAC TIC/DX INJECTION SUBQ/IM HOSPITAL 60299 [facility] DISCHARGE 3 IBR IBR DAY MANAGEMEN T 30 MIN/< RADIOLOGI 92420 VICENTE ZHANG C EXAM 3 SABA SABA CHEST 2 VIEWS FRONTAL&L ATERAL US SOFT 74280 VICENTE ZHANG TISSUE 3 SABA SABA HEAD & NECK REAL TIME IMGE DOCM SBSQ 32350 [facility] 3 IBR IBR CARE/DAY 25 MINUTES INITIAL 04116 [facility] 3 LEE LEE CARE/DAY DECALVO DECALVO 50 MAR MAR MINUTES RADIOLOGI 63019 VICENTE ZHANG C 3 SABA SABA EXAMINATI ON CHEST SINGLE VIEW FRONTAL LOCM Q9967 ST ST. 300-399 3 AGUILAR AGUILAR MG/ML IODINE PHYSICIAN PHYSICIAN CONCENTRA S MAY S MAY TION PER ML CT THORAX [address] 3 AGUILAR AGUILAR W/CONTRAS T PHYSICIAN PHYSICIAN MATERIAL S MAY S MAY RADIOLOGI 98121 ELSA HUNTER C EXAM 3 [facility] CHEST 2 VIEWS FRONTAL&L ATERAL RADIOLOGI 39595 JESSE AVELAR C EXAM 3 EMERGENCY MAR CHEST 2 SERVICES VIEWS FRONTAL&L ATERAL FILTER A7038 AMAYA CONDE DISPBL 3 HOME HOME USED MEDICAL MEDICAL W/POS EQUIPME EQUIPME ARWAY PRESSURE DEVICE CUSHN A7032 AMAYA CONDE NASAL 3 HOME HOME MASK MEDICAL MEDICAL INTERFACE EQUIPME EQUIPME REPLACEME NT ONLY EACH ADMN SET A7003 YOUR YOUR SM VOL 3 PHARMACY PHARMACY NONFILST. [facility] [place] [address] ARLENE BOWMAN KRISTEN LIPASE 3 CO HOSPITAL INJECTION J0500 ARLENE JACO[facility] 3 CO CO DICYCLOMI [facility] NE HCL UP TO 20 MG COMPREHEN 17265 ARLENE JACOBS SIVE 3 CO CO [facility] [place] [place] [address] ARLENE JACOBS AMYLASE 3 CO [facility] INJECTION J2405 ARLENE JACOBS 3 CO [facility] ON HCL [place] [address] [place] [address] ELSA HUNTER ABDOMEN & 3 CALVIN CALVIN PELVIS W/CONTRAS T MATERIAL BLOOD 87079 ARLENE JACO[facility] COUNT 3 CO CO [facility] AUTO&AUTO DIFRNTL WBC URNLS DIP 69480 ARLENE JACOBS 3 CO CO STICK/TAB [facility] LET REAGENT AUTO MICROSCOP Y INFUSION J7050 ARLENE JACOBS NORMAL 3 CO MA SALINE [facility] SOLUTION 250 CC RADIOLOGI 59309 [facility] C EXAM 3 SABA SABA CHEST 2 VIEWS FRONTAL&L ATERAL BLOOD 14288 LAB SHERI LAB SHERI COUNT 3 MARVA [facility] HOLDINGS HOLDINGS AUTOMATED LIPID 47308 LAB SHERI LAB SHERI PANEL 3 MARVA MARVA HOLDINGS HOLDINGS HEMOGLOBI 82258 LAB SHERI LAB SHERI N 3 MARAV MARVA GLYCOSYLA HOLDINGS HOLDINGS KAMLA A1C SKIN TEST 69271 SHELLEY ROSA 3 LORRIE LORRIE TUBERCULO SIS INTRADERM AL COMPREHEN 18646 LAB SHERI LAB SHERI SIVE 3 MARVA MARVA METABOLIC HOLDINGS HOLDINGS PANEL ADMN SET A7003 YOUR YOUR SM VOL 3 [facility] [place] [address] ABBIE LEIVA LIPASE 3 MEM HOSP MEM HOSP INC INC COMPREHEN 84272 ABBIE LEIVA SIVE 3 MEM HOSP MEM [place] [address] ABBIE LEIVA AMYLASE 3 MEM HOSP MEM HOSP INC INC BLOOD 25369 ABBIE LEIVA COUNT 3 MEM HOSP MEM HOSP COMPLETE INC INC AUTO&AUTO DIFRNTL WBC DRUG SCR G0434 GIOVANNY RICHARDSON NOT 3 CHROMATOG RAPHIC; ANY NUMBER PT ENC RADIOLOGI 34191 [email or web address], [email or web address], C EXAM 3 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 CHEST 2 GISSEL GISSEL VIEWS CO HOS CO HOS FRONTAL&L ATERAL DRUG SCR G0434 GIOVANNY RICHARDSON NOT 3 CHROMATOG RAPHIC; ANY NUMBER PT ENC CUSHN A7032 AMAYA AMAYA NASAL 3 HOME HOME MASK MEDICAL MEDICAL INTERFACE EQUIPME EQUIPME REPLACEME NT ONLY EACH FILTER A7038 AMAYA AMAYA DISPBL 3 HOME HOME USED MEDICAL MEDICAL W/POS EQUIPME EQUIPME ARWAY PRESSURE DEVICE COMPREHEN 62693 [email or web address], [email or web address], SIVE 3 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 METABOLIC GISSEL GIS[place] [address] [employer], AMYLASE 3 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 GISSEL GISSEL CO HOS CO HOS BLOOD 95609 [employer], COUNT 3 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 COMPLETE GISSEL GISSEL AUTO&AUTO [place] [address] [employer], LIPASE 3 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 GISSEL GISSEL CO HOS CO HOS ADMN SET A7003 YOUR YOUR SM VOL 3 PHARMACY PHARMACY NONFILST. [facility] PNEUMAT NEBULIZR DISPBL CYSTO 99347 [facility] BLADDER 3 SABIANISM SABIANISM W/URETERA HOSP HOSP L CATHETERI ZATION INJECTION J3010 [facility] FENTANYL 3 SABIANISM SABIANISM [facility] HOSP 0.1 MG CATHETER C1758 [facility] URETERAL 3 SABIANISM SABIANISM HOSP HOSP GLUC BLD 71673 [facility] GLUC MNTR 3 SABIANISM SABIANISM DEV HOSP HOSP CLEARED FDA SPEC HOME USE BLOOD 11665 [facility] COUNT 3 SABIANISM SABIANISM COMPLETE HOSP HOSP AUTOMATED PRESSURIZ 34193 [facility] ED/NONPRE 3 SABIANISM SABIANISM SSURIZED HOSP HOSP INHALATIO N TREATMENT ANES 19865 [facility] TRANSURET 3 HRAL W/URETHRO CYSTOSCOP Y NOS ECG 62780 ARTHUR ARTHUR ROUTINE 3 SOREN SOREN ECG W/LEAST 12 LDS I&R ONLY INJECTION J2405 [facility] 3 SABIANISM SABIANISM ONDANSETR HOSP HOSP ON HCL PER 1 MG LOCM Q9967 [facility] 300-399 3 SABIANISM SABIANISM MG/ML HOSP HOSP IODINE CONCENTRA TION PER ML X-RAY 56269 [facility] ADA URINARY 3 RADIOLOGY TRACT ASSOC EXAM WITH CONTRAST MATERIAL URNLS DIP 12260 MAHNAZ JOYA JR 3 SOREN SOREN STICK/TAB LET RGNT NON-AUTO W/O MICRSCP NELSON 96822 MAHNAZ JOYA JR POST-VOID 3 SOREN SOREN ING RESIDUAL URINE&/BL ADDER CAP DILAT 76704 MAHNAZ JOYA JR FEMALE 3 SOREN SOREN URETHRA W/SUPPOSI TORY&/INS TLJ INI ADMN SET A7003 YOUR YOUR SM VOL 3 PHARMACY PHARMACY NONFILTR [facility] PNEUMAT NEBULIZR DISPBL GLUC BLD 59726 ARIANA NIÑOON GLUC MNTR 3 CLINIC HEN DEV CLEARED FDA SPEC HOME USE SCREENING G0202 ABBIE LEIVA 3 MEM HOSP MEM HOSP MAMMOGRAP INC INC [place] [address] ABBIE LEIVA TRANSVAGI 3 MEM HOSP MEM HOSP NAL INC INC COMPUTER- 01098 ABBIE LEIVA AIDED 3 MEM HOSP MEM HOSP DETECTION INC INC SCREENING MAMMOGRAP HY BLOOD 50359 [facility] OCCULT 3 KELLY KELLY PEROXIDAS E ACTV QUAL FECES 1-3 SPEC CULTURE 28827 [facility] CHLAMYDIA 3 KELLY KELLY ANY SOURCE URINLS 66875 [facility] DIP 3 KELLY KELLY STICK/TAB LET REAGNT NON-AUTO MICRSCPY IADNA 46301 [facility] NEISSERIA 3 KELLY KELLY GONORRHOE AE DIRECT PROBE TQ HEMOGLOBI 30970 LAB SH[facility]I LAB SHERI N 3 MARVA MARVA GLYCOSYLA HOLDINGS HOLDINGS KAMLA A1C COMPREHEN 81144 LAB SHERI LAB SHERI SIVE 3 MARVA [facility] [employer] [address] DANIEL MAT DANIEL MAT ABDOMEN & 3 PELVIS W/CONTRAS T MATERIAL GROUND A0425 [facility] MILEAGE 3 AMBULETT AMBULETT PER & & STATUTE AMBULANC AMBULANC MILE AMB A0427 [facility] SERVICE 3 AMBULETT AMBULETT ALS & & EMERGENCY AMBULANC AMBULANC TRANSPORT LEVEL 1 HEADGEAR A7035 AMAYA CONDE USED 3 HOME HOME W/POSITIV MEDICAL MEDICAL E AIRWAY EQUIPME EQUIPME PRESSURE DEVICE TUBING A7037 AMAYA AMAYA USED WITH 3 HOME HOME POSITIVE MEDICAL MEDICAL AIRWAY EQUIPME EQUIPME PRESSURE DEVICE FULL FACE A7030 AMAYA CHICASRELL MASK 3 HOME HOME USED MEDICAL MEDICAL W/POS EQUIPME EQUIPME ARWAY PRESS DEVICE EA ADMN SET A7003 YOUR YOUR SM VOL 3 PHARMACY PHARMACY NONFILST. [facility] PNEUMAT NEBULIZR DISPBL SMR PRIM 22534 [facility] SRC 3 [facility] GRAM/GIEM [facility] SA STAIN BCT FUNGI/SHUBHAM L SUSCEPTIB 63249 [facility] LTY STDY 3 [facility] IAL MICRO/AGA R DILUTJ CUL BACT 35285 [facility] XCPT 3 [facility] BLOOD/STO OL AEROBIC ISOL CUL BACT 79902 [facility] AEROBIC 3 [facility] DEFINITIV E EA ISOL PRESSURIZ 82641 [facility] ED/NONPRE 3 [facility] [employer] INHALATIO N TREATMENT RADIOLOGI 82581 DANIEL MAT DANIEL MAT C EXAM 3 CHEST 2 VIEWS FRONTAL&L ATERAL URNLS DIP [address] STICK/[facility] LET REAGENT AUTO MICROSCOP Y CPAP 01875 [facility] VENTILATI 3 [facility] ON CPAP [facility] INITIATIO N&MGMT PRESSURIZ 30949 [facility] ED/NONPRE 3 [facility] INHALATIO N TREATMENT COMPREHEN 70038 JESUS LEE SIVE 3 [facility] PANEL CREATINE 33402 JESUS LEE KINASE MB 3 [facility] ONLY HOSPITAL G0378 JESUS LEE OBSERVATI 3 [facility] SERVICE PER HOUR CULTURE 34417 JESUS LEE BACTERIAL 3 [facility] QUANTTATI VE COLONY COUNT URINE CREATINE 32544 JESUS LEE KINASE 3 [facility] FIBRIN 63360 JESUS LEE DGRADJ 3 [facility] D-DIMER QUANTITAT YVETTE ECG 77385 JESUS LEE ROUTINE 3 [facility] W/LEAST 12 LDS TRCG ONLY W/O I&R SBSQ 47040 YOSELIN YOSELIN OBSERVATI 3 NURY IGN NURY IGN ON CARE/DAY 15 [place] [address] JESUS LEE TROPONIN 3 [facility] YVETTE BLOOD 96943 JESUS LEE GASES ANY 3 [facility] COMBINATI ON PH PCO2 PO2 CO2 HCO3 BLOOD 44836 JESUS LEE COUNT 3 [facility] AUTOMATED CULTURE 42950 JESUS LEE BACTERIAL 3 [facility] AEROBIC W/ID ISOLATES ADMN SET A7003 YOUR YOUR SM VOL 3 PHARMACY PHARMACY NONFILTR [employer] PNEUMAT NEBULIZR DISPBL CUSHN A7032 AMAYA CONDE NASAL 3 HOME HOME MASK MEDICAL MEDICAL INTERFACE EQUIPME EQUIPME REPLACEME NT ONLY EACH FILTER A7038 AMAYA CONDE DISPBL 3 HOME HOME USED MEDICAL MEDICAL W/POS EQUIPME EQUIPME ARWAY PRESSURE DEVICE ADMN SET A7003 YOUR YOUR SM VOL 3 PHARMACY PHARMACY NONFILTR [employer] PNEUMAT NEBULIZR DISPBL 3D 96001 ABBIE LEIVA RENDERING 3 [facility]OS[facility] INC INC W/INTERP& [place] [address] TYRONE TYRONE ABDOMEN & 3 COURTNEY COURTNEY PELVIS W/CONTRAS T MATERIAL LOCM Q9967 ABBIE LEIVA 300-399 3 [facility]OS[facility] MG/ML INC INC IODINE CONCENTRA TION PER ML US SOFT 78165 [facility] 3 Y Y HEAD & [facility] [place] [address] ABBIE LEIVA UREA 3 MEM HOSP MEM HOSP NITROGEN INC INC QUANTITAT YVETTE CREATININ 31279 ABBIE LEIVA E BLOOD 3 MEM HOSP MEM HOSP INC INC ADMN SET A7003 YOUR YOUR SM VOL 3 PHARMACY PHARMACY NONFILST. [facility] PNEUMAT NEBULIZR DISPBL MYOCARDIA 06747 [facility] SPECT 3 Y Y [facility] STUDIES CV STRS 93552 KELLOGG CORNELIO KELLOGG CORNELIO TST 3 XERS&/OR RX CONT ECG W/O I&R TECHNETIU A9500 [facility] TC-99M 3 Y Y [facility] DX PER STUDY DOSE CV STRS 60494 [facility] TST 3 Y Y XERS&/OR [facility] RX CONT ECG TRCG ONLY INJECTION J2785 [facility] 3 Y Y [facility] ON 0.1 MG CV STRS 90401 KELLOGG CORNELIO KELLOGG CORNELIO TST 3 XERS&/OR RX CONT ECG I&R ONLY RADIOLOGI 92567 [employer], C EXAM 3 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 CHEST 2 GISSEL CHAUHAN VIEWS CO HOS CO HOS FRONTAL&L ATERAL THERAPEUT 84396 CANDIDA TIRADO IC 3 Aug PROPHYLAC TIC/DX INJECTION SUBQ/IM INJECTION J0696 CANDIDA TIRADO 3 Aug CEFTRIAXO NE SODIUM PER 250 MG ECG 86760 KOREY VILLAO KOREY VILLAO ROUTINE 3 ECG W/LEAST 12 LDS I&R ONLY ECG 20672 CANDIDA TIRADO ROUTINE 3 Aug ECG W/LEAST 12 LDS TRCG ONLY W/O I&R CONTINUOU E0601 AMAYA CONDE S 3 HOME HOME POSITIVE MEDICAL MEDICAL AIRWAY EQUIPME EQUIPME PRESSURE DEVICE CUSHN A7032 AMAYA CONDE NASAL 3 HOME HOME MASK MEDICAL MEDICAL INTERFACE EQUIPME EQUIPME REPLACEME NT ONLY EACH FILTER A7038 AMAYA CONDE DISPBL 3 HOME HOME USED MEDICAL MEDICAL W/POS EQUIPME [place] [address] KARTHIK AIYANA KARTHIK AIYANA SURG 3 PATHOLOGY GROSS&AIYANA ROSCOPIC EXAM ANES 11474 [facility] ARZATE SOREN LOWER 3 ANESTH INTESTINE OF THE BLUE ENDOSCOPY DISTAL [place]ODENUM SPCL STN 58447 KARTHIK AIYANA KARTHIK AIYANA 2 I&R 3 EXCPT MICROORG/ ENZYME/IM CYT COLSC FLX 45440 CAMARILLO MOIRA CAMARILLO MOIRA W/RMVL 3 OF TUMOR POLYP LESION SNARE TQ COLONOSCO 90716 CAMARILLO MOIRA CAMARILLO MOIRA PY 3 W/BIOPSY SINGLE/MU LTIPLE EGD 08464 CAMARILLO MOIRA CAMARILLO MOIRA TRANSORAL 3 BIOPSY SINGLE/MU LTIPLE RADEX 05780 [facility] HAND 3 SABA MINIMUM 3 RADIOLOGY VIEWS ASSOCIAT LARYNGOSC 41769 MANDY GALVAN OPY 3 LIAM WHEELER FLEXIBLE DIAGNOSTI C CONTINUOU E0601 AMAYA CONDE S 3 HOME HOME POSITIVE MEDICAL MEDICAL AIRWAY EQUIPME EQUIPME PRESSURE DEVICE CUSHN A7032 AMAYA CONDE NASAL 2 HOME HOME MASK MEDICAL MEDICAL INTERFACE EQUIPME EQUIPME REPLACEME NT ONLY EACH ADMN SET A7003 YOUR YOUR SM VOL 2 PHARMACY PHARMACY NONFILTR [facility] PNEUMAT NEBULIZR DISPBL FILTER A7013 YOUR YOUR DISPOSABL 2 PHARMACY PHARMACY [employer] W/AREOSOL COMPRESS/ US GENERATOR RADEX 65013 [facility] 2 Y Y [facility] FINE 78515 [facility] 2 Y Y [facility] N W/O IMAGING GUIDANCE CYTP EVAL 92485 [facility] 2 Y Y [facility] ASPIRATE INTERP & REPORT US SOFT 01707 [facility] TISSUE 2 YARON YARON HEAD & [place] [address] [facility] GUIDANCE 2 YARON YARON NEEDLE PLACEMENT IMG S&I FINE 23383 [facility] NEEDLE 2 YARON YARON ASPIRATIO N WITH IMAGING GUIDANCE LARYNGOSC 87347 MANDY MANDY OPY 2 LIAM WHEELER FLEXIBLE DIAGNOSTI C MICROSOMA 67944 [facility] L 2 Y Y ANTIBODIE [facility] S EACH COMPREHEN 70668 [facility] SIVE 2 Y Y METABOLIC [facility] [place] [address] [facility] THYROID 2 Y Y STIMULATI [facility] [place] [address] [facility] FREE 2 Y Y THYROXINE [facility] COLLECTIO 72481 [facility] VENOUS 2 Y Y BLOOD [facility] VENIPUNCT URE CONTINUOU E0601 AMAYA CONDE S 2 HOME HOME POSITIVE MEDICAL MEDICAL AIRWAY [place] [address] [facility] ABDOMEN & 2 Y JUS Y JUS PELVIS W/CONTRAS T MATERIAL AMBULANCE A0429 [facility] SERVICE 2 AMBULETT AMBULETT BLS & & EMERGENCY AMBULANC AMBULANC TRANSPORT GROUND A0425 [facility] MILEAGE 2 AMBULETT AMBULETT PER & & [place] [address] [facility], [facility], ABDOMEN & 2 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 PELVIS GISSEL CHAUHAN W/O CO HOS CO HOS CONTRST 1/> BODY RE BASIC 479[address] [facility], [facility], METABOLIC 2 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 PANEL GISSEL CHAUHAN CALCIUM CO HOS CO HOS TOTAL BLOOD 81876 [facility], [facility], COUNT 2 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 COMPLETE GISSEL CHAUHAN AUTO&AUTO [place] [address] [facility], [facility], INFUSION 2 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 HYDRATION GISSEL CHAUHAN EACH CO HOS CO HOS ADDITIONA L HOUR URNLS DIP 90654 [facility], [facility], 2 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 STICK/TAB GISSEL CHAUHAN LET RGNT CO HOS CO HOS AUTO W/O MICROSCOP Y ADMN SET A7003 YOUR YOUR SM VOL 2 PHARMACY PHARMACY NONFILTR [facility] PNEUMAT NEBULIZR DISPBL FILTER A7013 YOUR YOUR DISPOSABL 2 PHARMACY PHARMACY [facility] W/AREOSOL COMPRESS/ US GENERATOR CUSHN A7032 AMAYA CONDE NASAL 2 HOME HOME MASK MEDICAL MEDICAL INTERFACE EQUIPME EQUIPME REPLACEME NT ONLY EACH FILTER A7038 AMAYA AMAYA DISPBL 2 HOME HOME USED MEDICAL MEDICAL W/POS EQUIPME EQUIPME ARWAY PRESSURE DEVICE INJECTION A9576 [facility] 2 CO CO [facility] [place] [address] [facility] ANGIOGRAP 2 CO CO [facility] W/CONTRAS T/NONCONT RAST MRI BRAIN 42480 [facility] BRAIN 2 CO CO STEM W/O [facility] W/CONTRAS T MATERIAL COMPUTER- 70843 [facility] AIDED 2 Y Y DETECTION [facility] DX MAMMOGRAP HY DIAGNOSTI [id number] [facility] C 2 Y Y [facility] HY INCL CAD WHEN PERF; BILAT CONTINUOU E0601 AMAYA CONDE S 2 HOME HOME POSITIVE MEDICAL MEDICAL AIRWAY EQUIPME EQUIPME PRESSURE DEVICE COLLECTIO 63827 [facility] N VENOUS 2 N N BLOOD [facility] VENIPUNCT HOSPITA HOSPITA URE COMPREHEN 24036 [facility] SIVE 2 N N METABOLIC [facility] [place] [address] [facility] FREE 2 N N THYROXINE [facility] [place] [address] [facility] NAN THYROID 2 N STIMULATI [facility] NG HOSPITA HORMONE TSH BLOOD 07264 [facility] COUNT 2 N N COMPLETE [facility] AUTO&AUTO HOSPITA HOSPITA DIFRNTL WBC URNLS DIP 60401 [email or web address], 2 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 STICK/TAB GISSEL CHAUHAN LET CO HOS CO HOS REAGENT AUTO MICROSCOP Y DRUG SCR G0434 [employer], MHC INC, NOT 2 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 CHROMATOG GISSEL CHAU[facility]AN RAPHIC; CO HOS CO HOS ANY NUMBER PT ENC US SOFT 94315 [email or web address], TISSUE 2 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 HEAD & GISSEL CHAU[facility] NECK REAL CO HOS CO HOS TIME IMGE DOCM DUPLEX 42881 [place] [facility] SCAN 2 SBAA EXTRACRAN RADIOLOGY IAL ART ASSOCIAT COMPL BI [facility] 57806 [facility] DISCHARGE 2 Aug DAY MANAGEMEN T 30 MIN/< SBSQ 61051 [facility] 2 Aug CARE/DAY 25 MINUTES RADEX ABD 87250 [place] [facility] 2 [place] ANTEROPOS RADIOLOGY T&ADDL ASSOCIAT OBLQ&CONE VIEWS INITIAL 12086 [facility] 2 Aug CARE/DAY 50 MINUTES RADIOLOGI 76495 [place] [facility] C EXAM 2 [facility] CHEST 2 RADIOLOGY VIEWS ASSOCIAT FRONTAL&L ATERAL RADIOLOGI 91584 [place] [facility] C 2 CALVIN EXAMINATI RADIOLOGY ON SKULL ASSOCIAT 4/> [place] [address] [email or web address], HEAD/BRAI 2 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 N W/O GISSEL CH[facility] CONTRAST CO HOS CO HOS MATERIAL CUSHN A7032 AMAYA AMAYA NASAL 2 HOME HOME MASK MEDICAL MEDICAL INTERFACE EQUIPME EQUIPME REPLACEME NT ONLY EACH CONTINUOU E0601 AMAYA AMAYA S 2 HOME HOME POSITIVE MEDICAL MEDICAL AIRWAY EQUIPME EQUIPME PRESSURE DEVICE ADMN SET A7003 YOUR YOUR SM VOL 2 [facility] PNEUM[facility] NEBULIZ[facility] DISPBL RADEX 98998 [email or web address], SMALL 2 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 INTESTINE GISSEL GISSEL CO HOS CO HOS W/MULTIPL E SERIAL IMAGES INJECTION J2550 [email or web address], [employer], 2 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 PROMETHAZ GISSEL CHAU[facility]AN INE HCL CO HOS CO HOS UP TO 50 MG LIPID 23674 [email or web address], PANEL 2 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 GISSEL GISSEL CO HOS CO HOS IMMUNOFLU 12607 [email or web address], [email or web address], ORESCENT 2 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 STUDY EA GISSEL GISSEL ANTIBODY CO HOS CO HOS INDIR METHOD THERAPEUT 52219 [facility] [employer], [employer] [facility], IC 2 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 PROPHYLAC GISSEL GISSEL TIC/DX CO HOS CO HOS INJECTION SUBQ/[place] [address] [facility] [employer], [facility] INC, LIPASE 2 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 GISSEL GISSEL CO HOS CO HOS PROTHROMB 35900 [facility], [facility], IN TIME 2 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 GISSEL GISSEL CO HOS CO HOS GENERAL 00013 [facility], [facility], HEALTH 2 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 PANEL GISSEL GISSEL CO HOS CO HOS INJECTION J1885 [facility] [employer], [facility], 2 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 KETOROLAC GISSEL GISSEL CO HOS CO HOS TROMETHAM INE PER 15 MG CONTINUOU E0601 AMAYA CONDE S 2 HOME HOME POSITIVE MEDICAL MEDICAL AIRWAY EQUIPME EQUIPME PRESSURE DEVICE INJECTION J1885 [facility] 2 Aug KETOROLAC TROMETHAM INE PER 15 MG THERAPEUT 30380 [facility] IC 2 Aug PROPHYLAC TIC/DX INJECTION SUBQ/[place] [address] [facility] [place] DANIEL MAT ABDOMEN & 2 RADIOLOGY PELVIS W/O CONTRAST MATERIAL ADMN SET A7003 YOUR YOUR SM VOL 2 PHARMACY PHARMACY [facility] [place] [address] [facility] [employer], [email or web address], ABDOMEN & 2 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 PELVIS GISSEL GISSEL W/O CO HOS CO HOS CONTRST 1/> BODY RE LOCM Q9967 [facility] [employer], [employer], [phone] 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 MG/ML GISSEL GISSEL IODINE CO HOS CO HOS CONCENTRA TION PER ML COMPREHEN 98878 [facility] [employer], [employer], SIVE 2 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 METABOLIC GISSEL GISSEL PANEL CO HOS CO HOS CARCINOEM 70337 [facility], [employer] [facility], [place] 2 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 ANTIGEN GISSEL GISSEL CEA CO HOS CO HOS BILIRUBIN 52739 [facility] [employer], [employer], DIRECT 2 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 GISSEL GISSEL CO HOS CO HOS LACTATE 90437 [facility] INC, [facility] INC, DEHYDROGE 2 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 NASE LDH GISSEL CHAU[facility]AN CO HOS CO HOS BLOOD 78557 [facility] INC, [facility] INC, COUNT 2 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 COMPLETE GISSEL GUZMANOLAS AUTO&AUTO CO HOS CO HOS DIFRNTL WBC CUSHN A7032 AMAYA AMAYA NASAL 2 HOME HOME MASK MEDICAL MEDICAL INTERFACE EQUIPME EQUIPME REPLACEME NT ONLY EACH URNLS DIP 85607 C[facility] WEIN 2 Aug STICK/TAB LET RGNT NON-AUTO W/O MICRSCP CONTINUOU E0601 AMAYA AMAYA S 2 HOME HOME POSITIVE MEDICAL MEDICAL AIRWAY EQUIPME EQUIPME PRESSURE DEVICE ADMN SET A7003 YOUR YOUR SM VOL 2 PHARMACY PHARMACY NONFILTR [facility] PNEUMAT NEBULIZR DISPBL CONTINUOU E0601 AMAYA AMAYA S 2 HOME HOME POSITIVE MEDICAL MEDICAL AIRWAY EQUIPME EQUIPME PRESSURE DEVICE FILTER A7038 AMAYA AMAYA DISPBL 2 HOME HOME USED MEDICAL MEDICAL W/POS EQUIPME EQUIPME ARWAY PRESSURE DEVICE CUSHN A7032 AMAYA AMAYA NASAL 2 HOME HOME MASK MEDICAL MEDICAL INTERFACE EQUIPME EQUIPME REPLACEME NT ONLY EACH CONTINUOU E0601 AMAYA AMAYA S 2 HOME HOME POSITIVE MEDICAL MEDICAL AIRWAY EQUIPME EQUIPME PRESSURE DEVICE INITIAL 83788 [facility] WEIN OBSERVATI 2 Aug ON CARE/DAY 50 MINUTES ADMN SET A7003 YOUR YOUR SM VOL 2 PHARMACY PHARMACY NONFILTR [facility] PNEUMAT NEBULIZR DISPBL OBSERVATI 34014 CANDIDA TIRADO ON CARE 2 Aug DISCHARGE MANAGEMEN T RADIOLOGI 28132 [facility] C EXAM 2 SABA CHEST 2 RADIOLOGY VIEWS ASSOCIAT FRONTAL&L ATERAL MRI 44115 [facility] SPINAL 2 CO CO [facility] LUMBAR W/O CONTRAST MATERIAL GASTRIC 28165 [facility] [place] CISCO EMPTYING 2 RADIOLOGY RHO IMAGING STUDY CALORIC 67294 [facility] RICHARD GRE VESTIBULA 2 R TEST EA IRRIGATIO N W/RECORD POSITIONA 52984 [facility] RICHARD GRE L 2 NYSTAGMUS TEST SINUSOIDA 87299 [facility] L 2 VERTICAL AXIS ROTATIONA L TESTING NRV CNDJ 65517 [facility] RICHARD GRE AMPLITUDE 2 & LATENCY EACH NERVE SENSORY OPTKINETI 80956 [facility] RICHARD GRE C NYSTAG 2 BIDIR/FOV EAL/PERIP H STIM W/REC SPONTANEO 30952 R[facility] GRE RICHARD GRE US 2 NYSTAGMUS TEST HEADGEAR A7035 AMAYAASHLEY CONDE USED 2 HOME HOME W/POSITIV MEDICAL MEDICAL E AIRWAY EQUIPME EQUIPME PRESSURE DEVICE TUBING A7037 AMAYAASHLEY CONDE USED WITH 2 HOME HOME POSITIVE MEDICAL MEDICAL AIRWAY EQUIPME EQUIPME PRESSURE DEVICE HUMDIFIR E0562 AMAYA CONDE HEATED 2 HOME HOME USED MEDICAL MEDICAL W/POS EQUIPME EQUIPME ARWAY PRESSURE DEVICE CONTINUOU E0601 AMAYA AMAYA S 2 HOME HOME POSITIVE MEDICAL MEDICAL AIRWAY EQUIPME EQUIPME PRESSURE DEVICE FILTER A7038 AMAYA AMAYA DISPBL 2 HOME HOME USED MEDICAL MEDICAL W/POS EQUIPME EQUIPME ARWAY PRESSURE DEVICE FULL FACE A7030 AMAYA AMAYA MASK 2 HOME HOME USED MEDICAL MEDICAL W/POS EQUIPME EQUIPME ARWAY PRESS DEVICE EA ADMN SET A7003 YOUR YOUR SM VOL 2 PHARMACY PHARMACY NONFILTR [employer] PNEUMAT NEBULIZR DISPBL POLYSOM 45505 [employer], [employer], 6/>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 SLEEP GISSEL CHAUHAN W/CPAP CO HOS CO HOS 4/> ADDL LAURA ATTND ADMN SET A7003 YOUR YOUR SM VOL 2 PHARMACY PHARMACY NONFILTR [employer] [place] [address] [facility] INFUSION 2 [facility] THERAPY/P INC INC ROPHYLAXI S /DX 1ST TO 1 HR ARTHROSCO 10402 [facility] PY KNEE 2 [facility] SYNOVECTO INC INC MY LIMITED SPX THERAPEUT 33270 [facility] IC 2 [facility] INJECTION INC INC IV PUSH EACH NEW DRUG ANESTH 22522 [facility] DIAGNOSTI 2 ANESTH C OF THE [place] [address] [facility] INFUSION 2 [facility] THERAPY INC INC PROPHYLAX IS/DX EA HOUR BASIC 73353 [facility] METABOLIC 2 [facility] PANEL INC INC CALCIUM TOTAL BLOOD 69078 [facility] COUNT 2 [facility] COMPLETE INC INC AUTO&AUTO DIFRNTL WBC RADIOLOGI 08923 [facility] C EXAM 2 [facility] CHEST 2 INC INC VIEWS FRONTAL&L ATERAL RADEX 70671 [employer], SPINE 2 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 LUMBOSACR GISSEL CHAUHAN AL CO HOS CO HOS MINIMUM 4 VIEWS URNLS DIP 88702 CANDIDA TIRADO 2 Aug STICK/TAB LET RGNT NON-AUTO W/O MICRSCP POLYSOM 00465 [employer], 6/>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 SLEEP 4/> GISSEL CHAUHAN ADDL CO HOS CO HOS LAURA ATTND INJECTION J2550 [employer], 2 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 PROMETHAZ GISSEL CHAUHAN INE HCL CO HOS CO HOS UP TO 50 MG THERAPEUT 41320 [employer], IC 2 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 PROPHYLAC GISSEL CHAUHAN TIC/DX CO HOS CO HOS INJECTION SUBQ/IM COLONOSCO 01694 EVITA MARTINEZ- PY 2 SHRUTHI SHRUTHI W/BIOPSY NETO NETO SINGLE/MU LTIPLE ECG 12403 TURNER ESTEFANY TURNER ESTEFANY ROUTINE 2 ECG W/LEAST 12 LDS I&R ONLY ANES 81018 [place] ZIEMBROS[facility] LOWER 2 ANESTHESI I JR EDW INTESTINE A GROUP [place] [address] PATHOLOGY DOUGLAS SURG 2 & SABA PATHOLOGY CYTOLOGY LAB GROSS&AIYANA ROSCOPIC EXAM RADIOLOGI 68313 [employer], C 2 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 EXAMINATI GISSEL CHAUHAN ON KNEE CO HOS CO HOS 1/2 VIEWS ADMN SET A7003 YOUR YOUR SM VOL 2 PHARMACY PHARMACY NONFILTR [facility] PNEUMAT NEBULIZR DISP HOSPITAL 79576 CANDIDA TIRADO DISCHARGE 2 Aug DAY MANAGEMEN T 30 MIN/< SBSQ 41533 [facility] 2 Aug CARE/DAY 15 MINUTES SBSQ 02573 [facility] 2 Aug CARE/DAY 25 MINUTES MAX 75883 CANDIDA TIRADO BREATHING 2 Aug CAPACITY MAXIMAL VOLUNTARY VENTJ GLUC BLD 19746 CANDIDA TIRADO GLUC MNTR 2 Aug DEV CLEARED FDA SPEC HOME USE RADIOLOGI 07190 [facility] C EXAM 2 EIDER GIOVANNA CHEST 2 RADIOLOGY VIEWS ASSOCIAT FRONTAL&L ATERAL RADEX 83273 [facility] WRIST 1 EIDER GIOV[facility]NA COMPLETE RADIOLOGY MINIMUM 3 ASSOCIAT VIEWS STRAPPING 36873 [facility] 1 MIHAI MIHAI ELBOW/WRI ST ADMN SET A7003 YOUR YOUR SM VOL 1 PHARMACY PHARMACY NONFILTR [facility] PNEUMAT NEBULIZR DISPBL ADMN SET A7003 YOUR YOUR SM VOL 1 PHARMACY PHARMACY NONFILTR [facility] PNEUMAT NEBULIZR DISPBL OPHTH 22639 [facility] 1 GRE GRE XM&EVAL COMPRE NEW PT 1/> VST DETERMINA 96060 [facility] TION 1 GRE GRE REFRACTIV E STATE ADMN SET A7003 YOUR YOUR SM VOL 1 PHARMACY PHARMACY NONFILTR [facility] PNEUMAT NEBULIZR DISPBL US BREAST 05614 [facility] UNIVERS REAL 1 Y Y TIME [facility] W/IMAGE DOCUMENTA TION DIAGNOSTI G0204 [facility] C 1 Y Y [facility] HY INCL CAD WHEN PERF; BILAT COMPUTER- 21786 [facility] AIDED 1 Y Y DETECTION [facility] DX MAMMOGRAP HY ARTHROCEN 08065 ARIANA ALLEN 1 CLINIC [place] ASPIR&/IN PSC J MAJOR JT/BURSA W/O US ADMN SET A7003 YOUR YOUR SM VOL 1 PHARMACY PHARMACY NONFILTR [facility] PNEUMAT NEBULIZR DISPBL FILTER A7013 YOUR YOUR DISPOSABL 1 PHARMACY PHARMACY LLC LLC W/AREOSOL COMPRESS/ US GENERATOR KNEE L1830 GISSEL CH[facility] ORTHOSIS 1 CO CO [facility] R CANVAS LONGTUDNL PREFAB RADIOLOGI 54202 GISSEL CHAU[facility] C 1 CO CO EXAMINATI [facility] ON KNEE 3 VIEWS INJECTION J1885 GISSEL [facility]AN 1 [facility] TROM[facility] INE PER 15 MG APPLICATI 43106 GISSEL TIRADO ON SHORT 1 CO [facility] SPLINT CALF FOOT RADIOLOGI 29301 MARY GARDNER C EXAM 1 EIDER GIOVANNA KNEE RADIOLOGY COMPLETE ASSOCIAT 4/[place] [address] LABORATOR LABORATOR IRON 1 Y & Y & BIODIAGNO BIODIAGNO STICS STICS URNLS DIP 15767 SMITH SMITH 1 SOREN SOREN STICK/TAB LET RGNT AUTO W/O MICROSCOP Y CREATININ 22046 SMITH SMITH E OTHER 1 SOREN SOREN SOURCE BLOOD 63183 LABORATOR LABORATOR COUNT 1 Y & Y & COMPLETE BIODIAGNO BIODIAGNO AUTO&AUTO STICS STICS DIFRNTL WBC RENAL 21916 LABORATOR LABORATOR FUNCTION 1 Y & Y & PANEL BIODIAGNO BIODIAGNO STICS STICS IRON 88061 LABORATOR LABORATOR BINDING 1 Y & Y & CAPACITY BIODIAGNO [place] [address] LABORATOR LABORATOR PARATHORM 1 Y & Y & ONE BIODIAGNO BIODIAGNO STICS STICS 25 51780 LABORATOR LABORATOR HYDROXY 1 Y & Y & INCLUDES BIODIAGNO BIODIAGNO FRACTIONS [place] [address] LABORATOR LABORATOR FERRITIN 1 Y & Y & BIODIAGNO BIODIAGNO STICS STICS ADMN SET A7003 YOUR YOUR SM VOL 1 PHARMACY PHARMACY NONFILTR [facility] PNEUMAT NEBULIZR DISPBL RINGERS J7120 ARLENE DHALIWAL LACTATE 1 CO [facility] UP TO 1000 CC INJECTION J1100 [facility]ENE [facility] 1 CO CO DEXAMETHO [facility] SONE SODIUM PHOSPHATE 1 MG INFUSION J7050 [facility] NORMAL 1 CO CO SALINE [facility] SOLUTION 250 CC INJECTION J3010 [facility] KHOURY FENTANYL 1 CO [facility] 0.1 MG UNCLASSIF J3490 [facility] KHOUR[facility] IED DRUGS 1 CO HAS HOSPITAL CYSTOURET 40135 [facility] HROSCOPY 1 SWAPNA SWAPNA W/DIL BLADDER GENERAL ANESTH X-RAY 22783 [facility] URINARY 1 SWAPNA SWAPNA TRACT EXAM WITH CONTRAST MATERIAL ANES 76478 [facility] TRANSURET 1 CO CO [facility] W/URETHRO CYSTOSCOP Y NOS INJECTION J0744 ARLENE [facility] 1 CO CO [facility] ACIN INTRAVENO US INFUS 200 MG INJECTION J2250 ARLENE [facility] 1 CO CO [facility] HCL PER 1 MG CYSTO 25476 [facility] BLADDER 1 SWAPNA SWAPNA W/URETERA L CATHETERI ZATION INJECTION J2550 ARLENE [facility] 1 CO CO [facility] INE HCL UP TO 50 MG INJECTION J2405 [facility] 1 CO CO [facility] ON HCL PER 1 MG COMPREHEN 74974 LAB [facility] LAB SHERI SIVE 1 AMERIC AMERIC METABOLIC HOLDING HOLDING PANEL BLOOD 23843 LAB [facility] LAB [facility] COUNT 1 AMERIC AMERIC COMPLETE HOLDING HOLDING AUTO&AUTO DIFRNTL WBC SPMTRY 86444 [place] W/VC 1 TRACE BAN GET EXPIRATOR FAMILY Y RON HEALTH W/WO MXML VOL VNTJ NONINVASI 90163 [place] III VE 1 TRACE CALVIN EAR/PULSE FAMILY OXIMETRY HEALTH SINGLE DETER NELSON 22786 [facility] POST-VOID 1 SWAPNA SWAPNA ING RESIDUAL URINE&/BL ADDER CAP ADMN SET A7003 YOUR YOUR SM VOL 1 PHARMACY PHARMACY NONFILTR [facility] PNEUMAT NEBULIZR DISPBL RINGERS J7120 [facility] LACTATE 1 CO CO INFUSION [facility] UP TO 1000 CC INJECTION J0697 [facility] STERILE 1 CO CO CEFUROXIM [facility] E SODIUM PER 750 MG INJECTION J1100 [facility] 1 CO CO DEXAMETHO [facility] SONE SODIUM PHOSPHATE 1 MG INJECTION J2175 [facility] 1 CO CO MEPERIDIN [facility] E HCL PER 100 MG ANES 61698 [facility] EXTRAPERI 1 [facility] ABD W/URINARY TRACT NOS UNCLASSIF J3490 [facility] IED DRUGS 1 CO CO [facility]ITAL [facility]PITAL INJECTION J1885 [facility] 1 CO CO KETOROLAC [facility] TROMETHAM INE PER 15 MG INJECTION J3010 [facility] FENTANYL 1 CO CO CITRATE [facility] 0.1 MG INJECTION J0690 [facility] 1 CO CO CEFAZOLIN [facility] SODIUM 500 MG INJECTION J2250 [facility] 1 CO CO MIDAZOLAM [facility] HCL PER 1 MG CYSTOURET 80944 [facility] HROSCOPY 1 SWAPNA SWAPNA INJECTION J2405 [facility] 1 [facility] PER 1 MG SLING 84273 [facility] OPERATION 1 SWAPNA SWAPNA STRESS INCONTINE NCE BASIC 07501 LAB [facility] LAB SHERI METABOLIC 1 AMERIC AMERIC PANEL HOLDING HOLDING CALCIUM TOTAL RADIOLOGI 68431 [facility] C EXAM 1 TRACE TRACE CHEST 2 FAMILY FAMILY VIEWS [facility] HEALTH FRONTAL&L ATERAL SPMTRY 64969 [place] III W/VC 1 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 FAMILY Y RON HEALTH W/WO MXML VOL VNTJ NONINVASI 00976 [place] III VE 1 [facility]ACE [facility] EAR/PULSE FAMILY OXIMETRY HEALTH SINGLE DETER BLOOD 99928 LAB [facility] LAB SHERI COUNT 1 AMERIC AMERIC COMPLETE HOLDING HOLDING AUTO&[place] [address] [facility] ABDOMEN & 1 CO CO PELVIS [facility] W/O CONTRST 1/> BODY RE RADEX 02638 [facility] ABDOMEN 1 1 CO CO [facility]OSPITAL HOSPITAL ANTEROPOS TERIOR VIEW CYSTO 76177 [facility] CALIBRATI 1 SWAPNA SWAPNA ON DILAT URTL STRIX/NELLY NOSIS BASIC 02788 ARLENE [facility] METABOLIC 1 [facility] CALCIUM TOTAL CULTURE 14091 ARLENE [facility] BACTERIAL 1 [facility] QUANTTATI VE COLONY COUNT URINE COLLECTIO 50478 [facility]RLENE [facility] N VENOUS 1 [facility] VENIPUNCT URE VOID 13241 [facility] PRESSURE 1 SWAPNA SWAPNA STUDIES INTRAABDO SREE EMG STDS 41084 [facility] ANAL/URTL 1 SWAPNA SWAPNA SPHNCTR OTH/THN NDL COMPLEX 57225 [facility] UROFLOMET 1 SWAPNA SWAPNA RY COMPLX 82633 [facility] CYSTOMETR 1 SWAPNA SWAPNA O W/VOID PRESS & URETHRAL PROFIL NELSON 86834 [facility] POST-VOID 1 SWAPNA SWAPNA ING RESIDUAL URINE&/BL ADDER CAP ELECTRICA A4595 EMPI INC EMPI INC L 1 STIMULATO R SUPPLIES 2 LEAD PER MONTH NELSON 97837 [facility] POST-VOID 1 SWAPNA SWAPNA ING RESIDUAL URINE&/BL ADDER CAP ADMN SET A7003 YOUR YOUR SM VOL 1 [facility] PNEUMAT NEBULIZR DISPBL URNLS DIP 48548 ARIANA TIRADO 1 CLINIC PARUL STICK/TAB PSC LET RGNT NON-AUTO W/O MICRSCP ARTHROCEN 50788 [facility] TESIS 1 [place] ASPIR&/IN ORTHOPAED ORTHOPAED J MAJOR ICS PLC ICS PLC JT/BURSA W/O US CULTURE 23682 GISSEL CHAUHAN BACTERIAL 1 [facility] QUANTTATI VE COLONY COUNT URINE CULTURE 24140 GISSEL CHAUHAN BCT 1 [facility] ISOL&PRSM [facility] PTV ID ISOLATE EA URINE URNLS DIP 63051 GISSEL CHAUHAN 1 MA CO STICK/TAB [facility] LET REAGENT AUTO MICROSCOP Y SUSCEPTBI 93628 GISSEL CHAUHAN LTY STDY 1 CO CO [facility] IAL AGNT AGAR DILUTJ ANES 93590 [place] KEO ANT NERVE 1 ANESTHESI MUSCLE A GROUP TDN PSC FASCIA&BU RSA FOREARM WRIST NEUROPLAS 82149 [facility] TRA TY 1 [place] &/TRANSPO ORTHOPAED S MEDIAN ICS PLC NRV CARPAL TUNNE TENDON 56348 [facility] TRA SHEATH 1 [place] INCISION ORTHOPAED ICS PLC ECG 58386 GISSEL CHAUHAN ROUTINE 1 CO CO ECG [facility] W/LEAST 12 LDS TRCG ONLY W/O I&R BLOOD 46757 GISSEL CHAUHAN COUNT 1 CO [facility] AUTO&AUTO DIFRNTL WBC URNLS DIP 11844 GISSEL CHAUHAN 1 CO CO STICK/TAB [facility] LET REAGENT AUTO MICROSCOP Y RADIOLOGI 82149 GISSEL CHAUHAN C EXAM 1 CO CO CHEST 2 [facility] VIEWS FRONTAL&L ATERAL ECG 57390 RINALDINI RINALDINI ROUTINE 1 MELINDA MELINDA ECG W/LEAST 12 LDS I&R ONLY BASIC 82247 GISSEL CHAUHAN METABOLIC 1 CO CO PANEL [facility] CALCIUM TOTAL COLLECTIO 93051 GISSEL CHAUHAN N VENOUS 1 CO MA BLOOD [facility] VENIPUNCT URE WRIST L3807 [employer] HAND 1 FINGR ORTHOS W/O JNT PREFAB CSTM FIT RADEX 60569 [facility] TRA WRIST 1 [place] COMPLETE ORTHOPAED MINIMUM 3 ICS PLC VIEWS WRIST L3908 [employer] HAND 1 ORTHOSIS EXT CONTROL COCK-UP PREFAB NRV CNDJ 19772 [facility] [place] AMPLT&LAT 1 [facility] NRV MOTOR SYLVIA W/F-WAVE STD NRV CNDJ 06973 [facility] [place] AMPLITUDE 1 [facility] LATENCY SYLVIA EACH NERVE SENSORY H-REFLEX 45274 [facility] [place] AMPLT&LAT 1 [facility] GASTRCN/S SYLVIA [facility] ADMN SET A7003 YOUR YOUR SM VOL 1 PHARMACY PHARMACY NONFILTR [employer] PNEUMAT NEBULIZR DISPBL MRI 35159 ABBIE LEIVA SPINAL 1 [facility] CANAL INC INC CERVICAL W/O CONTRAST MATRL 3D 30287 [facility] 1 MEDICAL MEDICAL W/INTERP IMAGING IMAGING & ASS ASS POSTPROCE SS SUPERVISI [place] MRI 94034 ABBIE LEIVA SPINAL 1 [facility] CANAL INC INC LUMBAR W/O CONTRAST MATERIAL BLOOD 00154 GISSEL CHAUHAN COUNT 1 CO CO SMEAR [facility] MCRSCP W/[place] [address] GISSEL CHAUHAN INFUSION 1 CO CO HYDRATION [facility] INITIAL 31 MIN-1 HOUR COMPREHEN 87827 GISSEL CHAUHAN SIVE 1 CO CO METABOLIC [facility] PANEL COLLECTIO 10615 GISSEL CHAUHAN N VENOUS 1 CO CO BLOOD [facility] VENIPUNCT URE THER 59030 GISSEL CHAUHAN PROPH/DX 1 CO CO NJX IV [facility] PUSH SINGLE/1S T SBST/[place] [address] GISSEL CHAUHAN INFUSION 1 CO CO THERAPY/P [facility] ROPHYLAXI S /DX 1ST TO 1 HR URNLS DIP 36491 GISSEL CHAUHAN 1 CO CO STICK/TAB [facility] LET REAGENT [employer]O MICROSCOP Y ADMN SET A7003 YOUR YOUR SM VOL 0 PHARMACY PHARMACY NONFILTR [employer] PNEUMAT NEBULIZR DISPBL PHYSICAL 58376 [facility] THERAPY 0 CO CO EVALUATIO [facility] N APPLICATI 45257 ARLENE FRANKSMING ON 0 CO CO SURFACE [facility] NEUROSTIM ULATOR TENS E0730 [employer] INC EMPI INC DEVICE 0 4/MORE LEADS MULTI NERVE STIMULATI ON MOLEC SEP 62434 UNIVERS UNIVERS GEL 0 Y Y ELECTROPH [facility] ORESIS EACH PREPJ MOLEC 63308 UNIVERS UNIVERS ISOL/XTRJ 0 Y Y [facility] NUCLEIC ACID EA TYPE MOLECULAR 10605 [facility] DX 0 Y Y AMPLIFICA [facility] TION TARGET EA SEQUENCE MOLEC 52877 [facility] MUTATION 0 Y Y ID [facility] SEQUENCIN G 1 SGM EA SGM MOLECULAR 09179 [facility] 0 Y Y DIAGNOSTI [facility] CS INTERPRET ATION & REPORT ADMN SET A7003 YOUR YOUR SM VOL 0 PHARMACY PHARMACY NONFIL [employer] [facility] PNEUMAT NEBULIZR DISPBL MAMMOGRAP 46012 [place] ACU[place] SABA HIC GID 0 MEDICAL NEEDLE SERV [place] [address] [place] MOL SURG 0 MEDICAL PATHOLOGY SERV [facility]OUND[facility] GROSS&AIYANA ROSCOPIC EXAM RADIOLOGI 49752 [place] MOL TRAVIS 0 MEDICAL EXAMINATI SERV ON FOUNDAT[facility] SURGICAL SPECIMEN PREOP 96791 [place] ACU[place] SABA PLACEMENT 0 MEDICAL SERV LOCALIZAT FOUND[facility] ION WIRE BREAST MASTECTOM 40224 [place] ALVARADO Y PARTIAL 0 MEDICAL HEA SERV FOUNDATIO ANES 28151 [place] INTEG 0 MEDICAL R GIOVANY EXTREMITI SERV ES ANT FOUNDATIO TRUNK & PERINEUM NOS BASIC 46991 [facility] METABOLIC 0 Y Y PANEL [facility] CALCIUM TOTAL BLOOD 00977 [facility] COUNT 0 Y Y COMPLETE [facility] AUTOMATED COLLECTIO 05565 [facility] N VENOUS 0 Y Y BLOOD [facility] VENIPUNCT URE ECG 94698 [facility] ROUTINE 0 Y Y ECG [facility] W/LEAST 12 LDS TRCG ONLY W/O I&R BREAST 27430 [facility] BIOPSY 0 Y Y VACUUM [facility] ASSISTED/ ROTATING DEVICE IMG GID 58473 [facility] PLVT MTLC 0 Y Y [facility] CLIP PRQ BRST BX/[place] L[place] [address] [facility] SURG 0 Y Y PATHOLOGY [facility] GROSS&AIYANA ROSCOPIC EXAM STRTCTC 32920 [facility] 0 Y Y GID [facility] BREAST BX/NEEDLE PLACEMENT RADIOLOGI 06844 [facility] TRAVIS 0 Y [facility] ON SURGICAL SPECIMEN DIAGNOSTI G0204 [facility] C 0 Y Y MAMMOGRAP [facility] HY INCL CAD WHEN PERF; BILAT US BREAST 43913 [facility] REAL 0 Y Y TIME [facility] W/IMAGE DOCUMENTA TION ADMN SET A7003 YOUR YOUR SM VOL 0 PHARMACY PHARMACY NONFILTR [employer] PNEUMAT NEBULIZR DISPBL UROGRAPHY 69064 MARY ELSA IV W/WO 0 [facility] KUB W/WO RADIOLOGY TOMOGRAPH ASSOCIAT Y US BREAST 68076 [place] HUNTER REAL 0 CALVIN TIME RADIOLOGY W/IMAGE ASSOCIAT DOCUMENTA TION ADMN SET A7003 YOUR YOUR SM VOL 0 PHARMACY PHARMACY NONFILTR LLC LLC PNEUMAT NEBULIZR DISPBL ADMN SET A7003 YOUR YOUR SM VOL 0 PHARMACY PHARMACY NONFILTR [facility] PNEUMAT NEBULIZR DISPBL MAMMOGRAP 12893 GISSEL CHAUHAN HY 0 [facility] MAMMOGRAP 96538 GISSEL CHAUHAN HY 0 [facility] SCREENING 45150 [place] ZHANG, 0 MC S MAMMOGRAP RADIOLOGY HY BILATERAL ASSOCIATE S PSC RADEX 68398 NATALIIAAMINTA HUNTER, RIBS UNI 0 KORTNEY C W/POSTERO RADIOLOGY ANT CH MINIMUM 3 ASSOCIATE VIEWS S PSC RADEX 47484 NATALIIAAMINTA HUNTER, FINGR 0 [place]ORTNEY C MINIMUM 2 RADIOLOGY VIEWS ASSOCIATE S PSC ADMN SET A7003 YOUR YOUR SM VOL 0 PHARMACY PHARMACY NONFILTR [employer] PNEUMAT NEBULIZR DISPBL ADMN SET A7003 YOUR YOUR SM VOL 0 PHARMACY PHARMACY NONFILTR [employer] PNEUMAT NEBULIZR DISPBL LIPID 14162 [facility] PANEL 0 [facility] HEPATIC 01525 [facility] FUNCTION 0 [facility] INC PANEL [facility] BONE 45324 BETY ELY 9 JEAN ALVARADO M.D.P.S.C STUDY 1/> [place] S[place] [address] GISSEL CHAUHAN INFUSION 9 CO CO TH[facility]APY/[facility] S /DX 1ST TO 1 HR DEMO&/LURDES 27352 GISSEL CHAUHAN L OF PT 9 CO CO UTILIZ [facility] AERSL GEN/NEB/I NHLR/IP MANJ 92467 GISSEL CHAUHAN CHEST 9 [facility] FACILITAT E LUNG FUNCTION SUBSQ DEMO&/LURDES 61948 GISSEL CHAUHAN L OF PT 9 CO CO UTILIZ [facility] AERSL GEN/NEB/I NHLR/IP MANJ 80048 GISSEL CHAUHAN CHEST 9 CO CO WALL [facility] [place] [address] GISSEL CHAUHAN INFUSION 9 CO CO [facility] S /DX 1ST TO 1 HR ECG 92420 ZENON YARBROUGH ROUTINE 9 , DEEPAK , DEEPAK ECG W/LEAST 12 LDS I&R ONLY RADIOLOGI 14611 GISSEL CHAUHAN C EXAM 9 CO CO CHEST 2 [facility] VIEWS FRONTAL&[place] [address] GISSEL CHAUHAN INFUSION 9 CO [facility]APY/[facility] S /DX 1ST TO 1 HR PRESSURIZ 03145 GISSEL CHAUHAN ED/NONPRE 9 CO CO SSURIZED [facility] INHALATIO N TREATMENT BLOOD 29504 GISSEL CHAUHAN COUNT 9 CO CO COMPLETE [facility] AUTO&AUTO DIFRNTL WBC BLOOD 72575 GISSEL CHAUHAN COUNT 9 CO CO SMEAR [facility] MCRSCP W/[place] [address] GISSEL CHAUHAN INFUSION 9 CO CO THERAPY [facility] PROPHYLAX IS/DX EA HOUR BASIC 41025 GISSEL CHAUHAN METABOLIC 9 CO CO PANEL [facility] CALCIUM TOTAL COLLECTIO 55855 GISSEL Merida VENOUS 9 CO CO BLOOD [facility] 66832 ZENON YARBROUGH DISCHARGE 9 , DEEPAK , DEEPAK DAY MANAGEMEN T 30 MIN/< PRESSURIZ 17790 GISSEL CHAUHAN ED/NONPRE 9 CO [facility] INHALATIO N TREATMENT NONINVASI 73691 GISSEL CHAUHAN VE 9 CO CO EAR/PULSE [facility] OXIMETRY SINGLE DETER RADEX ABD 67997 [facility] COMPL 9 EIDER, AQT ABD RADIOLOGY LENO W/S/E/D K VIEWS 1 ASSOCIATE VIEW CH S PSC BLOOD 05890 GISSEL CHAUHAN COUNT 9 CO CO COMPLETE [facility] AUTO&AUTO DIFRNTL WBC NONINVASI 13460 GISSEL CHAUHAN VE 9 CO CO EAR/PULSE [facility] [place] [address] GISSEL CHAUHAN LIPASE 9 CO CO [facility] ECG 28400 GISSEL CHAUHAN ROUTINE 9 CO CO ECG [facility] W/LEAST 12 LDS TRCG ONLY W/O I&R DEMO&/LURDES 61767 GISSEL CHAUHAN L OF PT 9 CO CO UTILIZ [facility] AERSL GEN/NEB/I NHLR/[place] [address] GISSEL CHAUHAN AMYLASE 9 CO CO [facility] G0378 GISSEL CHAUHAN OBSERVATI 9 CO CO ON HOSPITAL HOSPITAL SERVICE PER HOUR COMPREHEN 43922 GISSEL CHAUHAN SIVE 9 CO CO METABOLIC [facility] PANEL INJECTION 99164 JENNIFER LLAMAS, OF LOWER 9 TRACEY ALVARADO [facility] M.D.P.S.C SPINAL . JOINT OR NERVE FLUOR 67605 JENNIFER LLAMAS, NEEDLE/CA 9 TRACEY ALVARADO M.D.P.S.C SPINE/PAR . ASPINAL DX/[place] NJX [address] STONE STONE ANES&/STR [address] D JT NRV SURGERY SURGERY LMBR/SAC CENTER CENTER 1 LVL URNLS DIP 83804 GISSEL CHAUHAN 9 CO CO STICK/TAB [facility] [place] [address] GISSEL CHAUHAN INFUSION 9 CO CO [facility] INITIAL 31 MIN-1 HOUR THER 47395 GISSEL CHAUHAN PROPH/DX 9 CO CO NJX [facility] PUSH SINGLE/1S T SBST/DRUG IADNA NOS 42180 [facility] QUEST 9 DIAGNOSTI DIAGNOSTI AMPLIFIED CS CS PROBE TQ EACH ORGANISM ADMN SET A7003 YOUR YOUR SM VOL 9 PHARMACY [facility] PNEUMAT NEBULIZR DISPBL MRI ANY 13388 KATJA C TYRONE, JT LOWER 9 TYRONE KATJA EXTREM W/O CONTRAST MATRL RADEX 60562 GISSEL CHAUHAN ANKLE 9 CO CO [facility] MINIMUM 3 VIEWS ADMN SET A7003 YOUR YOUR SM VOL 9 PHARMACY PHARMACY [facility]. [facility] PNEUMAT NEBULIZR DISPBL RADEX 23704 GISSEL CHAUHAN SPINE 9 CO CO LUMBOSACR [facility] AL MINIMUM 4 VIEWS LUMB-SACR L0637 [facility] BL[employer] AL ORTHOS 9 BRACING BRACING [employer] INC. CNTRL RIGD A&P PREFAB MRI 33614 KATJA C TYRONE, SPINAL 9 TYRONE KATJA CANAL LUMBAR W/O CONTRAST MATERIAL 3D 36193 KATJA C TYRONE, RENDERING 9 TYRONE KATJA W/INTERP & POSTPROCE SS SUPERVISI ON ADMN SET A7003 YOUR YOUR SM VOL 9 PHARMACY PHARMACY [employer] [facility] SolutionsILUNITED [facility] LLC PNEUMAT NEBULIZR DISPBL VIRUS 60147 [facility] CENTRIFUG 9 [facility] E ENHNCD ID IMFLUOR STAIN EA CT LUMBAR 03472 [place] ZHANG, SPINE 9 MC S W/O RADIOLOGY CONTRAST MATERIAL ASSOCIATE S PSC 3D 62252 GISSEL CHAUHAN RENDERING 9 CO CO W/INTERP [facility] & POSTPROCE SS SUPERVISI ON ADMN SET A7003 YOUR YOUR SM VOL 9 PHARMACY PHARMACY Clarity Software SolutionsILST. CLAIR [facility]ITAL PNEUMAT NEBULIZR DISPBL NON-INVAS 73200 ABBIE LEIVA YVETTE 9 [facility] PHYSIOLOG INC INC IC STUDY EXTREMITY 3 LEVLS RADIOLOGI 99460 Sarah WEBBER 9 MC S EXAMINATI RADIOLOGY ON CHEST SINGLE ASSOCIATE VIEW S PSC FRONTAL ADMN SET A7003 YOUR YOUR SM VOL 9 PHARMACY PHARMACY NONFILTR [employer] PNEUMAT NEBULIZR DISPBL LIPID 27070 [facility] PANEL 9 [facility] ECG 50769 [place] MCKEMIE ROUTINE 9 VALLEY JR, ECG INTERNAL ROSITA F W/LEAST MED 12 LDS W/I&R NONINVASI 71750 [place] BESSON, VE 9 [facility] WILLIAM A EAR/PULSE INTERNAL OXIMETRY MED SINGLE DETER RADIOLOGI 28096 GISSEL CHAUHAN C EXAM 9 CO [place] CHEST [address] [place] [address] VIEWS FRONTAL&L ATERAL ADMN SET A7003 YOUR YOUR SM VOL 9 PHARMACY PHARMACY NONFILTR [employer] [place] [address] PATHOLOGY PATHOLOGY SURG 8 & & PATHOLOGY CYTOLOGY CYTOLOGY LAB LAB GROSS&AIYANA ROSCOPIC EXAM ADMN SET A7003 YOUR YOUR SM VOL 8 PHARMACY PHARMACY NONFILTR [facility] PNEUMAT NEBULIZR DISPBL EXC B9 98649 RINALDINI RINALDINI LESION 8 , DEEPAK , DEEPAK [facility] SK TG T/A/L 0.5 CM/< EXC B9 68433 GISSEL CHAUHAN LESION 8 CO [facility] SK TG T/A/L 2.1-3.0 CM THERAPEUT 76144 GISSEL CHAUHAN IC PX 1/> 8 CO [facility]3] EACH 15 MIN EXERCISES PHYSICAL 13809 GISSEL CHAUHAN THERAPY 8 CO MA EVALUATIO [facility] N RADEX 43491 GISSEL CHAUHAN SPINE 8 CO MA CERVICAL [facility] 4 OR 5 VIEWS COLSC FLX 32774 BUSHRA CAMARILLO, 8 MEDICAL DENNIS W/REMOVAL SERV LESION FOUNDATIO [place] 85853 ABBIE LEIVA THER 8 [facility] PROPH/DX INC INC 1ST >1 [place] L[place] [address] PATHOLOGY PATHOLOGY SURG 8 & & PATHOLOGY CYTOLOGY CYTOLOGY LAB LAB GROSS&AIYANA ROSCOPIC EXAM [ENDOSCOP 4836 ABBIE LEIVA IC] 8 [facility] POLYPECTO INC INC MY OF RECTUM ADMN SET A7003 YOUR YOUR SM VOL 8 PHARMACY PHARMACY NONFILTR LLC LLC PNEUMAT NEBULIZR DISPBL ANTIBODY 17316 GISSEL CHAUHAN HELICOBAC [address] [facility] PYLORI COLLECTIO 48060 GISSEL CHAUHAN N VENOUS 8 CO CO BLOOD [facility] VENIPUNCT URE BASIC 89455 GISSEL CHAUHAN METABOLIC 8 CO CO PANEL [facility] CALCIUM TOTAL THER 64672 GISSEL CHAUHAN PROPH/DX 8 CO CO NJX [facility] SUBQ/IM BLOOD 48872 GISSEL CHAUHAN COUNT 8 CO CO [facility] AUTO&AUTO DIFRNTL WBC URNLS DIP 92407 GISSEL CHAUHAN 8 CO CO STICK/TAB [facility] LET REAGENT AUTO MICROSCOP Y BASIC 61598 [facility] METABOLIC 8 [facility] PANEL CALCIUM TOTAL HEMOGLOBI 13539 [facility] OF N 8 [facility] GLYCOSYLA KAMLA A1C LIPID 09597 [facility] PANEL 8 [facility] HEPATIC 10645 [facility] FUNCTION 8 [facility] [place] [address] [facility] THYROID 8 [facility] STIMULATI NG HORMONE TSH COLLECTIO 14581 RINALDINI MIAHALDINI N VENOUS 8 , DEEPAK , DEEPAK BLOOD VENIPUNCT URE ADMN SET A7003 YOUR YOUR SM VOL 8 PHARMACY PHARMACY NONFILTR [employer] PNEUMAT NEBULIZR DISPBL SPCL STN 26019 PATHOLOGY PATHOLOGY 2 I&R 8 & & EXCPT CYTOLOGY CYTOLOGY MICROORG/ LAB LAB ENZYME/IM CYT EGD 44563 ABBIE LEIVA TRANSORAL 8 [facility] BIOPSY INC INC SINGLE/[place] [address] ABBIE LEIVA THER 8 [facility] PROPH/DX INC [place] 1ST >1 [place] [address] PATHOLOGY PATHOLOGY SURG 8 & & PATHOLOGY CYTOLOGY CYTOLOGY LAB LAB GROSS&AIYANA ROSCOPIC EXAM ESOPHAGOG 4516 ABBIE LEIVA ASTRODUOD 8 [facility] ENOSCOPY INC INC WITH CLOSED BIOPSY GENERAL 52485 [facility] HEALTH 8 [facility] PANEL NATRIURET 48686 QUEST SABRINA QUEST SABRINA IC 8 [facility] BLOOD 82802 [facility] COUNT 8 [facility] COMPLETE AUTO&AUTO DIFRNTL WBC LIPID 65456 [facility] PANEL 8 [facility] [place] [address] [facility] THYROID 8 [facility] STIMULATI NG HORMONE TSH Encounters Encounter Start End Date Code Location Performer Type Date HOSPITAL [facility]BIE - 7 7 [facility] 6[facility]89 [facility] T [facility]ISIT S GROUP 25 MINUTES HOSP[facility]E - 7 7 [facility] ABBIE - 7 7 [facility] T OFFICE 25826 ABBIE ORTEGA 7 7 [facility] T VISIT INC 10 MINUTES [facility]OSPITAL [facility] - 7 7 [facility] OUTPATIEN [facility] T EMERGENCY 95695 [facility] 7 7 [facility] EMERGENCY T VISIT PHYS MODERATE SEVERITY HOSPITAL ABBIE - 7 7 [facility] ABBIE - 6 6 [facility] OUTPATIEN INC T OFFICE 60862 [facility] T VISIT 15 MINUTES OFFICE 06031 AB[facility] ORTEGA 6 6 [facility] T VISIT INC 10 MINUTES HOSPITAL ABBIE - 6 6 [facility] OUTPATIEN INC T HOSPITAL ABBIE - 6 6 [facility] OUTPATIEN INC T OFFICE 52011 [facility] T VISIT 15 MINUTES HOSPITAL ABBIE - 6 6 [facility] OUTPATIEN INC T OFFICE 55815 [facility] OUTPATIEN 6 6 [facility] T VISIT INC 10 MINUTES OFFICE 92045 [facility] OUTPATIEN 6 6 [facility] T VISIT INC 10 MINUTES HOSPITAL ABBIE - 6 6 [facility]ACOBS - 6 6 [facility] - [address] [place] [address] T OFFICE 49244 [facility] 6 6 NE HEALTH CAR T VISIT MEDICAL 15 G MINUTES OFFICE 74881 [facility] CON[facility] 6 6 ANALY ION [facility] NEW/ESTAB PLLC PATIENT 60 MIN OFFICE 15642 [facility]NN [facility] 6 6 PHYSICIAN NHNA T NEW 20 S GROUP MINUTES OFFICE 77920 [facility] DEPARTMENT 6 6 NE HEALTH CAR T NEW 30 MEDICAL MINUTES G EMERGENCY 03111 [facility] 6 6 EMILY [facility] EMERGENCY T VISIT PHYS HIGH/URGE NT SEVERITY OFFICE 57745 [facility] OUTPATIEN 6 6 [facility] T VISIT INC 10 MINUTES HOSPITAL ABBIE - 6 6 [facility] T OFF[facility] 31795 [facility] EVERETTE HOLM [facility] 6 6 PHYSICIAN T VISIT S GROUP 10 MINUTES OFFICE 94551 [facility] 6 6 W R IV STELLA T VISIT PHYSICIAN 25 PRACTIC MINUTES HOSPITAL [facility] - [address] [place] [address] T OFFICE 93726 MINERVA MELO OUTPATIEN 6 6 W R IV STELLA T VISIT PHYSICIAN 25 PRACTIC MINUTES [facility] ABBIE - 6 6 [facility] OUTPATIEN INC T OFFICE 42968 [facility] OUTPATIEN 6 6 [facility]OS[facility] T VISIT INC 10 MINUTES OFFICE 18023 MINERVA MELO OUTPATIEN 6 6 W R IV STELLA T NEW 60 PHYSICIAN MINUTES PRACTIC OFFICE 70928 [facility] HALEY OUTPATIEN 6 6 PHYSICIAN STONE T VISIT S GROUP GEOVANNY HOLM [address] [facility] 6 6 EMILY PHI DEPARTMEN EMERGENCY T VISIT PHYS HIGH/URGE NT [facility] ABBIE - 6 6 MEM [facility] OUTPATIEN [facility] ABBIE - 6 6 [facility]PATIEN [facility] OFFICE 55574 ABBIE OUTPATIEN 6 6 MEM [facility] T VISIT INC 10 MINUTES HOSPITAL ABBIE - 6 6 [facility] OUTPATIEN [facility] ABBIE - 6 6 [facility] OUTPATIEN INC EMERGENCY 36241 [facility] EMILY VISIT EMERGENCY HIGH PHYS SEVERITY& [facility] OUTPATIEN INC OFFICE 73722 AB[facility]E OUTPATIEN 6 6 [facility] T VISIT INC 10 MINUTES OFFICE 31014 [facility] MOI OUTPATIEN 6 6 PHYSICIAN AIYANA T VISIT S GROUP 10 MINUTES OFFICE 88965 [facility] MOI OUTPATIEN 6 6 PHYSICIAN AIYANA T VISIT S GROUP 15 MINUTES OFFICE 97436 [facility]E OUTPATIEN 5 5 [facility] T VISIT INC 10 MINUTES HOSPITAL ABBIE - 5 5 [facility] OUTPATIEN INC T HOSPITAL ABBIE - 5 5 [facility] OUTPATIEN INC T OFFICE 73859 [facility] PETTEY OUTPATIEN 5 5 PHYSICIAN JAM T NEW 30 S GROUP MINUTES HOSPITAL ABBIE - 5 5 [facility] OUTPATIEN INC T OFFICE 00827 [facility] MOI OUTPATIEN 5 5 PHYSICIAN AIYANA T VISIT S GROUP 25 MINUTES HOSPITAL ABBIE - 5 5 [facility] OUTPATIEN INC T OFFICE 58031 [facility]E OUTPATIEN 5 5 [facility] T VISIT INC 10 MINUTES HOSPITAL ABBIE - 5 5 [facility] OUTPATIEN INC T OFFICE 25100 [facility] MOI OUTPATIEN 5 5 PHYSICIAN AIYANA T VISIT S GROUP 25 MINUTES OFFICE 97034 [facility] MOI OUTPATIEN 5 5 PHYSICIAN AIYANA T VISIT S GROUP 15 MINUTES EMERGENCY 26681 [facility] 5 5 [facility] T VISIT HIGH/URGE NT SEVERITY HOSPITAL [facility] - 5 5 [facility] 60471 [facility] VISIT EMERGENCY HIGH PHYS SEVERITY& THREAT FUN OFFICE 12219 [facility] 5 5 MD B[place], T VISIT PSC 10 MINUTES HOSPITAL JACOBS - 5 5 [facility] JACOBS - 5 5 [facility] T OFFICE 17730 [facility] 5 PHYSICIAN AIYANA T VISIT S GROUP 15 MINUTES HOSPITAL JACOBS - 5 5 [facility] T EMERGENCY 60092 [facility] 5 5 EMILY DEPARTMEN EMERGENCY T VISIT PHYS HIGH/URGE NT SEVERITY EMERGENCY 71156 [facility] 5 5 CO [facility] T VISIT MODERATE SEVERITY OFFICE 82638 [facility] DEMOYA OUTPATIEN 5 5 CO HOSP LIAM T VISIT 15 MINUTES HOSPITAL ABBIE - 5 5 [facility] OUTPATIEN INC T OFFICE 92563 DEMETRA ALEXANDER BUX ANJ OUTPATIEN 5 5 MD T NEW 30 MINUTES OFFICE 14736 AB[facility]E OUTPATIEN 5 5 [facility] T VISIT INC 10 MINUTES OFFICE 26376 [facility] MOI OUTPATIEN 5 5 PHYSICIAN AIYANA T VISIT S GROUP 15 MINUTES OFFICE 31416 [facility] MOI OUTPATIEN 5 5 PHYSICIAN AIYANA T VISIT S GROUP 25 MINUTES HOSPITAL JACOBS - 5 5 [facility] T OFFICE 89286 [facility] MOI OUTPATIEN 5 5 PHYSICIAN AIYANA T VISIT S GROUP 15 MINUTES EMERGENCY [address] [facility] 5 5 EMILY JAM [facility]ER[facility]ENC[facility] T VISIT PHYS HIGH/URGE NT SEVERITY OFFICE 16853 [facility] MOI OUTPATIEN 5 5 PHYSICIAN AIYANA T VISIT S GROUP 25 MINUTES OFFICE 26054 [facility] MOI OUTPATIEN 5 5 PHYSICIAN AIYANA T NEW 30 S GROUP MINUTES HOSPITAL JACOBS - 5 5 [facility] T EMERGENCY 43373 [facility] 5 5 CO [facility] T VISIT HIGH/URGE NT SEVERITY EMERGENCY [address] [facility] DEPT 5 5 EMILY JAM VISIT EMERGENCY HIGH PHYS SEVERITY& THREAT FUNCJ OFFICE 59775 BELEN JARAMILLO OUTPATIEN 5 5 [place] [facility] [facility] 15 MINUTES HOSPITAL JACOBS - 5 5 [facility] T OFFICE 62089 EDNAGIOKLEVER KOO OUTPATIEN [address] [facility] T VISIT CLINIC 15 MINUTES OFFICE 68875 [place] ANGEL CONSULTAT 5 5 MEDICAL III THO ION SERV NEW/ESTAB FOUNDATIO PATIENT N 60 MIN OFFICE 39064 BELEN JARAMILLO OUTPATIEN 5 5 [place] [facility] T VISIT PSC 25 MINUTES OFFICE 49583 ALMAZ ARUNAMICHELLE OUTPATIEN [address] [facility] T VISIT CLINIC 15 MINUTES OFFICE 66466 BELEN JARAMILLO OUTPATIEN 4 4 [place] [facility] T [facility] 15 MINUTES HOSPITAL JACOBS - 4 4 [facility] T OFFICE 21269 GIOVANNY HAM GIOVANNY HAM OUTPATIEN 4 4 T VISIT 15 MINUTES OFFICE 56874 ARIANA DIAZ- OUTPATIEN 4 4 [facility] [place] T VISIT 15 MINUTES OFFICE 21605 GIOVANNY HAM GIOV[facility]NY HAM OUTPATIEN 4 4 T VISIT 15 MINUTES OFFICE 71974 GIOVANNY HAM GIOVANNY HAM OUTPATIEN 4 4 T VISIT 15 MINUTES HOSPITAL J[facility]BS - 4 4 [facility] - 4 4 [facility] T OFFICE 95152 ARIANA DIAZ- OUTPATIEN 4 4 [facility] [place] T VISIT 15 MINUTES HOSPITAL ARLENE - OTHER 4 4 [facility]ITAL OFFICE 36099 ARLENE COLES OUTPATIEN 4 4 [facility] T VISIT 15 MINUTES OFFICE 19596 ARIANA DIAZ- OUTPATIEN 4 4 [facility] [place] T VISIT 15 MINUTES OFFICE 52915 ARIANA DIAZ- OUTPATIEN 4 4 [facility] [place] T VISIT 15 MINUTES OFFICE 30568 GIOVANNY HAM GIOVANNY HAM OUTPATIEN 4 4 T VISIT 15 MINUTES OFFICE 95832 ARLENE FELIPENS OUTPATIEN 4 4 CO [facility] T VISIT 15 MINUTES OFFICE 82214 ARIANA DIAZ- OUTPATIEN 4 4 [facility] T VISIT 15 MINUTES HOSPITAL ABBIE - 4 4 [facility] OUTPATIEN [facility] T OFFICE 36397 ARIANAARLEN DE LEON OUTPATIEN 4 4 CLINIC MIHAI T VISIT 15 MINUTES OFFICE 87433 GIOVANNY DEBRA GIOVANNY HAM OUTPATIEN 4 4 T VISIT 15 MINUTES OFFICE 44935 ARIANA DIAZ- OUTPATIEN 4 4 [facility] T VISIT 15 MINUTES HOSPITAL GEORGEW - 4 4 N [facility] ARL[place] - 4 4 [facility] 4 4 N [facility] OFFICE 01110 GIOVANNY DEBRA GIOVANNY HAM OUTPATIEN 4 4 T VISIT 15 MINUTES OFFICE 88898 ARIANA OUTPATIEN 4 4 CLINIC T VISIT 25 MINUTES OFFICE 77150 GIOVANNY HAM GIOVANNY HAM OUTPATIEN 4 4 T VISIT 15 MINUTES OFFICE 92910 CHAIDEZ CHAIDEZ OUTPATIEN 4 4 NHAN NHAN T VISIT 15 MINUTES OFFICE 59299 ARIANA DIAZ- OUTPATIEN 4 4 [facility] T VISIT 25 MINUTES OFFICE 18151 SANKET FELIPENS OUTPATIEN 4 4 LAR LAR T VISIT 5 MINUTES [facility]OSPITAL [facility] - 4 4 [facility] 23172 JACOBS 4 4 CO [facility] T VISIT HIGH/URGE NT SEVERITY [facility] 52368 [facility] DE[facility] 4 4 VISIT HIGH SEVERITY& THREAT FUNCJ OFFICE 66084 SANKET COLES OUTPATIEN 4 4 LAR LAR T NEW 30 MINUTES OFFICE 72880 ARIANA OUTPATIEN 4 4 CLINIC T VISIT 15 MINUTES HOSPITAL [facility], - 4 4 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 OFFICE 31831 GIOVANNY DEBRA BALTAZAR HAM OUTPATIEN 4 4 T VISIT 15 MINUTES OFFICE 10189 CHAIDEZ CHAIDEZ OUTPATIEN 4 4 NHAN NHAN T NEW 30 MINUTES EMERGENCY 13620 [facility] AVELAR DEPT 4 4 Oct VISIT HIGH SEVERITY& THREAT FUN [facility] 35753 JACOBS 4 4 CO [facility] T VISIT HIGH/URGE NT SEVERITY OFFICE 15482 GIOVANNY DEBRA BALTAZAR HAM OUTPATIEN 4 4 T VISIT 15 MINUTES OFFICE 92592 ARIANA KENYA OUTPATIEN 4 4 CLINIC HEN T VISIT 15 MINUTES HOSPITAL GEORGETOW - 4 4 N OUTPATIEN COMMUNTIY T HOSPITA OFFICE 47182 GIOVANNY DEBRA BALTAZAR HAM OUTPATIEN 4 4 T VISIT 15 MINUTES [facility]PITAL [facility] 74819 MANDY GALVAN OUTPATIEN 4 4 LIAM LIAM T VISIT 15 MINUTES OFFICE 91887 GIOVANNY RICHARDSON OUTPATIEN 4 4 T VISIT 15 MINUTES OFFICE 17953 MANDY GALVAN OUTPATIEN 3 3 LIAM LIAM T VISIT 15 MINUTES [facility] 62573 UNIVERSIT OUTPATIEN 3 3 Y T VISIT HOSPITAL 10 MINUTES OFFICE 81738 GIOVANNY RICHARDSON OUTPATIEN 3 3 T VISIT 15 MINUTES OFFICE 28047 ARIANA CARLOS OUTPATIEN 3 3 [facility] T VISIT 25 MINUTES EMERGENCY 02699 KILEY CAO DEPT 3 3 STELLA STELLA VISIT HIGH SEVERITY& THREAT [facility] OFFICE 49099 GIOVANNY RICHARDSON OUTPATIEN 3 3 T VISIT 15 MINUTES EMERGENCY 06298 [place] 3 3 [facility] T VISIT HIGH/URGE NT SEVERITY EMERGENCY 02521 JESSE AVELAR DEPT 3 3 EMERGENCY MAR VISIT SERVICES HIGH SEVERITY& THREAT [facility] - 3 3 [facility] EMERGENCY 42080 [place] 3 3 [facility] T VISIT HIGH/URGE NT SEVERITY HOSPITAL [place] - 3 3 [facility] EMERGENC[facility] 15716 KILEY CAO DEPT 3 3 STELLA STELLA VISIT HIGH SEVERITY& THREAT [facility] EMERGENCY 27719 SOKAN BAB SOKAN BAB 3 3 [facility] T VISIT HIGH/URGE NT SEVERITY OFFICE 13519 GIOVANNY RICHARDSON OUTPATIEN 3 3 T VISIT 15 MINUTES HOSPITAL ABBIE - 3 3 [facility] OUTPATIEN INC T OFFICE 75091 BUSHRA CAMARILLO MOIRA OUTPATIEN 3 3 MEDICAL T VISIT SERV 25 FOUNDATIO MINUTES N OFFICE 43056 GIOVANNY BALTAZAR HAM OUTPATIEN 3 3 T VISIT 15 MINUTES HOSPITAL [facility], - 3 3 MOTOR 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 EXAMINER OUTPATIEN GISSEL T CO HOS OFFICE 69104 GIOVANNY RICHARDSON OUTPATIEN 3 3 T NEW 45 MINUTES [facility] [place] - 3 3 MOTOR VEHICLE EXAMINER OUTPATIEN GISSEL T CO HOS OFFICE 01534 ARIANA KENYA OUTPATIEN 3 3 CLINIC HEN T VISIT 15 MINUTES [facility] - 3 3 [facility]IAN[facility] OUTPATIEN HOSP T OFFICE 07866 MAHNAZ JR JOYA JR OUTPATIEN 3 3 SOREN SOREN T NEW 45 MINUTES OFFICE 66532 HARPEL HARPEL OUTPATIEN 3 3 KELLY KELLY T VISIT 15 MINUTES OFFICE 98564 ARIANA KENYA OUTPATIEN 3 3 CLINIC HEN T VISIT 15 MINUTES HOSPITAL [facility] - 3 3 [facility] T INITIAL 16744 HARPEL HARPEL PREVENTIV 3 3 KELLY KELLY E MEDICINE NEW PATIENT [id number] OFFICE 48471 CAMARILLO MOIRA CAMARILLO MOIRA OUTPATIEN 3 3 T VISIT 25 MINUTES OFFICE 71299 ARIANA DIAZ- OUTPATIEN 3 3 [facility] T VISIT 15 MINUTES OFFICE 07394 ARIANA DIAZ- OUTPATIEN 3 3 [facility] T VISIT 15 MINUTES EMERGENCY 63077 JESSE KIMBALL DEPT 3 3 EMERGENCY ROLON VISIT SERVICES HIGH SEVERITY& THREAT FUN OFFICE 43413 CANDIDA TIRADO OUTPATIEN 3 3 Aug T VISIT 15 MINUTES OFFICE 50017 ERIBERTOFuad ERIBERTOFuad OUTPATIEN 3 3 Aug T VISIT 25 MINUTES [facility]OSP[facility] - 3 3 [facility] T OFFICE 25160 ERIBERTOFuad ERIBERTOFuad OUTPATIEN 3 3 Aug T VISIT 25 MINUTES OFFICE 47656 CAMARILLO MOIRA CAMARILLO MOIRA OUTPATIEN 3 3 T VISIT 15 MINUTES HOSPITAL [facility]BI[facility] - 3 3 [facility] T OFFICE 83261 [facility] 3 3 Y T VISIT HOSPITAL 25 MINUTES OFFICE 32437 MANDY GALVAN OUTPATIEN 3 3 LIAMMarianne REYNOLDSS T VISIT 10 MINUTES HOSPITAL UNIVERSIT - 3 3 [facility] ABBIE - 3 3 [facility] T OFFICE 26752 CAMARILLO MOIRA CAMARILLO MOIRA OUTPATIEN 3 3 T VISIT 25 MINUTES OFFICE 60213 CANDIDA WEIFuad OUTPATIEN 3 3 Aug T VISIT 25 MINUTES HOSPITAL UNIVERSIT - 3 3 [facility] [place] - 3 3 [facility] OFFICE 30985 ERIBERTOFuad ERIBERTOFuad OUTPATIEN 3 3 Aug T VISIT 25 MINUTES OFFICE 41490 NOEMI FRANKLIN JR CONSULTAT 3 3 ION NEW/ESTAB PATIENT 60 MIN OFFICE 26038 SAVANNAHANDRIYFuad TIRADO OUTPATIEN 3 3 Aug T VISIT 25 MINUTES OFFICE 79198 SAVANNAHANDRIYFuad TIRADO OUTPATIEN 3 3 Aug T VISIT 15 MINUTES OFFICE 21083 [facility] 3 3 Aug T VISIT 25 MINUTES [facility]OSP[facility] - 3 3 [facility] 80122 [facility] 3 3 T VISIT 40 MINUTES OFFICE 54428 [facility] 3 3 LIAMMarianne WHEELER T VISIT 25 MINUTES HOSPITAL UNIVERSIT - 3 3 Y [facility] UNIVERSIT [facility] 2 2 Y [facility] T OFFICE 51643 [facility] 2 2 Y T NEW 60 HOSPITAL MINUTES OFFICE 69120 [facility]Y [facility] 2 2 LIAMMarianne WHEELER T NEW 45 MINUTES [facility] UNIVERSIT - 2 2 Y [facility] T EMERGENCY 68992 ZEHRA SHAHID DEPT 2 2 MAT MAT VISIT HIGH SEVERITY& THREAT FUN EMERGENCY 11889 KIERSTEN KIERSTEN 2 2 HEN HEN DEPARTMEN T VISIT HIGH/URGE NT SEVERITY EMERGENCY 57100 [facility], 2 2 MOTOR VEHICLE EXAMINER DEPARTMEN GISSEL T VISIT [facility], - 2 2 [facility]IC[facility] - 2 2 CO [facility] T OFFICE 47134 [facility] 2 2 Y T VISIT HOSPITAL 15 MINUTES HOSPITAL UNIVERSIT - 2 2 Y [facility] T OFFICE 73393 SHIRLEY WHEELER CONSULTAT 2 2 ION NEW/ESTAB PATIENT 80 MIN [facility] HOSP[facility] OFF[facility] 86486 CANDIDA WEIFuad OUTPATIEN 2 2 Aug T VISIT 25 MINUTES HOSPITAL [facility], - 2 2 MOTOR VEHICLE EXAMINER OUTPATIEN GISSEL T CO HOS EMERGENCY 41194 KIERSTEN SILVAO 2 2 HEN JAMEE DEPARTMEN T VISIT MODERATE SEVERITY HOSPITAL [facility] - 2 2 MOTOR VEHICLE EXAMINER OUTPATIEN GISSEL T CO HOS OFFICE 39705 CANDIDA WEIFuad OUTPATIEN 2 2 Aug T VISIT 25 MINUTES HOSPITAL [facility], - 2 2 MOTOR VEHICLE EXAMINER OUTPATIEN GISSEL T CO HOS OFFICE 15536 CAMARILLO MOIRA CAMARILLO MOIRA OUTPATIEN 2 2 T VISIT 15 MINUTES HOSPITAL [facility], - 2 2 MOTOR VEHICLE EXAMINER OUTPATIEN GISSEL T CO HOS EMERGENCY 31836 CANDIDA WEIFuad 2 2 Aug DEPARTMEN T VISIT MODERATE SEVERITY HOSPITAL [facility], - 2 2 MOTOR VEHICLE EXAMINER OUTPATIEN GISSEL T CO HOS OFFICE 47621 CAMARILLO MOIRA CAMARILLO MOIRA CONSULTAT 2 2 ION NEW/ESTAB PATIENT 60 MIN OFFICE 23649 ALLRAN JR ALLRAN JR CONSULTAT 2 2 STELLA STELLA ION NEW/ESTAB PATIENT 60 MIN OFFICE 40703 CANDIDA WEIFuad OUTPATIEN 2 2 Aug T VISIT 25 MINUTES EMERGENCY 27703 NEERAJ DIAMOND DEPT 2 2 VISIT HIGH SEVERITY& THREAT FUNCJ OFFICE 27315 CANDIDA WEIuFad OUTPATIEN 2 2 Aug T VISIT 25 MINUTES HOSPITAL [facility] - 2 2 MOTOR VEHICLE EXAMINER OUTPATIEN GISSEL T CO [facility], - 2 2 MOTOR VEHICLE EXAMINER OUTPATIEN GISSEL T CO HOS OFFICE 49350 CANDIDA WEIN OUTPATIEN 2 2 Aug T VISIT 25 MINUTES OFFICE 07032 ERIBERTON ERIBERTON OUTPATIEN 2 2 Aug T VISIT 25 MINUTES OFFICE 61930 BUD PHI BUD PHI CONSULTAT 2 2 ION NEW/ESTAB PATIENT 40 MIN OFFICE 15509 CANDIDA WEIN OUTPATIEN 2 2 Aug T VISIT 15 MINUTES OFFICE 29812 ERIBERTON ERIBERTON OUTPATIEN 2 2 Aug T VISIT 15 MINUTES HOSPITAL J[facility]BS - 2 2 [facility] - 2 2 [facility] T OFFICE 03980 HALEY DE LEON OUTPATIEN 2 2 MIHAI MIHAI T VISIT 25 MINUTES OFFICE 12492 MARTINEZ- MARTINEZ- OUTPATIEN 2 2 SHRUTHI SHRUTHI T VISIT NETO NETO 15 MINUTES OFFICE 86661 ERIBERTON ERIBERTON OUTPATIEN 2 2 Aug T VISIT 15 MINUTES OFFICE 16527 RICHARD GRE RICHARD GRE OUTPATIEN 2 2 T NEW 45 MINUTES HOSPITAL [facility] - 2 2 [facility] OFFICE 15572 ERIBERTON ERIBERTON OUTPATIEN 2 2 Aug T VISIT 15 MINUTES HOSPITAL ABBIE - 2 2 [facility] OUTPATIEN INC T OFFICE 76070 PETTEY PETTEY OUTPATIEN 2 2 JAM JAM T VISIT 15 MINUTES HOSPITAL ABBIE - 2 2 [facility] OUTPAT[facility]EN INC T OFFICE 64518 MARTINEZ- MARTINEZ- OUTPATIEN 2 2 SHRUTHI SHRUTHI T VISIT ENTO NETO 15 MINUTES HOSPITAL [facility] [place] - 2 2 MOTOR VEHICLE EXAMINER OUTPATIEN GISSEL T CO HOS OFFICE 59739 TAMANDRIYN ERIBERTON OUTPATIEN 2 2 Aug T VISIT 15 MINUTES OFFICE 34442 TAMAREN TAMAREN OUTPATIEN 2 2 Aug T VISIT 25 MINUTES OFFICE 45542 PETTEY PETTEY OUTPATIEN 2 2 GIGI YU T VISIT 15 MINUTES HOSPITAL [facility] [place] - 2 2 MOTOR VEHICLE EXAMINER OUTPATIEN GISSEL T CO HOS OFFICE 18658 PETTEY PETTEY OUTPATIEN 2 2 GIGI YU T NEW 20 MINUTES HOSPITAL [facility] [place] [facility] - 2 2 MOTOR VEHICLE EXAMINER OUTPATIEN GISSEL T CO HOS EMERGENCY 82337 KIERSTEN KIERSTEN 2 2 HEN HEN DEPARTMEN T VISIT MODERATE SEVERITY EMERGENCY 41492 [facility], 2 2 MOTOR VEHICLE EXAMINER DEPARTMEN GISSEL T VISIT CO HOS HIGH/URGE NT SEVERITY OFFICE 29060 TAMANDRIYN ERIBERTON OUTPATIEN 2 2 Aug T VISIT 25 MINUTES HOSPITAL [facility] [place] - 2 2 MOTOR VEHICLE EXAMINER OUTPATIEN GISSEL T CO HOS OFFICE 27878 TAMAREN SAVANNAHAREN OUTPATIEN 2 2 Aug T VISIT 15 MINUTES OFFICE 57174 TAMAREN SAVANNAHAREN OUTPATIEN 2 2 Aug T VISIT 15 MINUTES OFFICE 15239 TAMAREN TAMAREN OUTPATIEN 2 2 Aug T VISIT 25 MINUTES HOSPITAL GISSEL - 2 2 CO [facility] T OFFICE 61887 MARTINEZ- MARTINEZ- OUTPATIEN 2 2 SHRUTHI SHRUTHI T NEW 30 NETO NETO MINUTES HOSPITAL GISSEL - 1 1 CO OUTPATIEN HOSPITAL T OFFICE 34941 HALEY DE LEON OUTPATIEN 1 1 MIHAI MIHAI T VISIT 15 MINUTES HOSPITAL UNIVERSIT - 1 1 Y [facility] T OFFICE 49432 UNIVERSIT OUTPATIEN 1 1 Y T VISIT HOSPITAL 15 MINUTES OFFICE 03730 ARIANA DE LEON OUTPATIEN 1 1 CLINIC MIHAI T VISIT PSC 15 MINUTES OFFICE 57450 SMITH SMITH OUTPATIEN 1 1 SOREN SOREN T VISIT 15 MINUTES OFFICE 95348 ARIANAARLEN WEIN OUTPATIEN 1 1 CLINIC [facility] T VISIT PSC 25 MINUTES HOSPITAL GISSEL - 1 1 [facility] T EMERGENCY 74419 GISSEL 1 1 [facility] T VISIT LIMITED/M INOR PROB EMERGENCY 95362 GISSEL 1 1 [facility] T VISIT MODERATE SEVERITY OFFICE 52549 SMITH SMITH OUTPATIEN [address] [facility] 45 MINUTES OFFICE 80432 CENTRAL LEWIS TRA OUTPATIEN 1 1 [place] T VISIT ORTHOPAED 15 ICS [facility] 1 1 [facility] T OFFICE 23746 BUFFALO BORDEN III OUTPATIEN 1 1 TRACE CALVIN T [facility]ISIT [facility] 15 [facility] 1 1 [facility] T OFFICE 42985 BUFFALO BORDEN III OUTPATIEN 1 [address] [facility] 45 [facility] AL[facility] - 1 1 [facility] - 1 1 [facility] T OFFICE 81720 LOPEZ LOPEZ OUTPATIEN 1 1 SWAPNA SWAPNA T NEW 45 MINUTES OFFICE 37216 ARIANA NUÑEZLEBRON OUTPATIEN 1 1 CLINIC PARUL T NEW 30 PSC MINUTES HOSPITAL GISSEL - 1 1 [facility] T EMERGENCY 35617 GISSEL 1 1 [facility] T VISIT LIMITED/M INOR PROB HOSPITAL GISSEL - 1 1 [facility] T OFFICE 41538 CENTRAL LEWIS TRA OUTPATIEN 1 1 [place] T VISIT ORTHOPAED 15 [facility] MINUTES OFFICE 06391 RINALDINI RINALDINI OUTPATIEN 1 1 MELINDA MELINDA T VISIT 15 MINUTES OFFICE 44872 CENTRAL LEWIS TRA CONSULTAT 1 1 [place] ION ORTHOPAED NEW/ESTAB ICS PLC PATIENT 40 MIN OFFICE 74787 RINALDINI RINALDINI OUTPATIEN 1 1 MELINDA MELINDA T VISIT 15 MINUTES HOSPITAL [facility] - 1 1 [facility] 08505 GISSEL YARBROUGH 1 1 CO [facility] T VISIT MODERATE SEVERITY OFFICE 50052 SABIANISMChetna JACINTO CONSULTAT 1 1 NEUROLOGY [facility] NEW/ESTAB SYLVIA PATIENT 80 MIN EMERGENCY 86223 GISSEL 1 1 [facility] T VISIT LOW/MODER SEVERITY HOSPITAL GISSEL - 1 1 [facility] T OFFICE 86724 RINALDINI RINALDINI OUTPATIEN 1 1 MELINDA MELINDA T VISIT 15 MINUTES OFFICE 68913 RINALDINI RINALDINI OUTPATIEN 1 1 MELINDA MELINDA T VISIT 15 MINUTES OFFICE 02694 KMSF BRYANT OUTPATIEN 1 1 NURSE GIGI T NEW 45 PRACTITIO MINUTES [facility] - 0 0 [facility] T OFFICE 94361 RINALDINI RINALDINI OUTPATIEN 0 0 MELINDA MELINDA T VISIT 15 MINUTES OFFICE 96658 UNIVERSIT OUTPATIEN [address] [facility] [address] [facility] UNIVERSIT - 0 0 Y [facility] T OFFICE 20194 [place] CHAMBERS CONSULTAT 0 0 MEDICAL MAR ION SERV NEW/ESTAB FOUNDATIO PATIENT 60 MIN [facility] UNIVERSIT - 0 0 Y [facility] T OFFICE 83093 UNIVERSIT OUTPATIEN [address] [facility] [address] [facility] UNIVERSIT - 0 0 Y [facility] T OFFICE 43187 [place] ALVARADO CONSULTAT 0 0 MEDICAL HEA ION SERV NEW/ESTAB FOUNDATIO PATIENT 60 MIN OFFICE 85085 RINALDINI RINALDINI OUTPATIEN 0 0 MELINDA MELINDA T VISIT 15 MINUTES OFFICE 09426 RINALDINI RINALDINI OUTPATIEN 0 0 MELINDA MELINDA T VISIT 15 MINUTES HOSPITAL UNIVERSIT - 0 0 Y [facility] UNIVERSIT - 0 0 Y [facility] T OFFICE 64081 RINALDINI RINALDINI OUTPATIEN 0 0 MELINDA MELINDA T VISIT 10 MINUTES OFFICE 04268 RINALDINI RINALDINI OUTPATIEN 0 0 MELINDA MELINDA T VISIT 10 MINUTES EMERGENCY 26740 RINALDINI RINALDINI 0 0 MELINDA MELINDA DEPARTMEN T VISIT MODERATE SEVERITY OFFICE 64921 RINALDINI RINALDINI OUTPATIEN 0 0 MELINDA MELINDA T VISIT 25 MINUTES OFFICE 45310 RINALDINI RINALDINI OUTPATIEN 0 0 MELINDA MELINDA T VISIT 15 MINUTES EMERGENCY 89548 RINALDINI RINALDINI 0 0 MELINDA MELINDA DEPARTMEN T VISIT MODERATE SEVERITY OFFICE 80583 RINALDINI RINALDINI OUTPATIEN 0 0 , DEEPAK , DEEPAK T VISIT 15 MINUTES HOSPITAL [facility] - 0 0 [facility] T OFFICE 25444 RINALDINI RINALDINI OUTPATIEN 0 0 , DEEPAK , DEEPAK T VISIT 15 MINUTES HOSPITAL GISSEL - 0 0 [facility] T OFFICE 11940 RINALDINI RINALDINI OUTPATIEN 0 0 , DEEPAK , DEEPAK T VISIT 15 MINUTES HOSPITAL GISSEL - 0 0 [facility] OFFICE 75083 RINALDINI RINALDINI OUTPATIEN 0 0 , DEEPAK , DEEPAK T VISIT 10 MINUTES OFFICE 64332 RINALDINI RINALDINI OUTPATIEN 0 0 , DEEPAK , DEEPAK T VISIT 15 MINUTES OFFICE 42424 RINALDINI RINALDINI OUTPATIEN 0 0 , DEEPAK , DEEPAK T VISIT 10 MINUTES HOSPITAL GISSEL - 0 0 [facility] T OFFICE 92126 RINALDINI RINALDINI OUTPATIEN 0 0 , DEEPAK , DEEPAK T VISIT 15 MINUTES OFFICE 74505 RINALDINI RINALDINI OUTPATIEN 0 0 , DEEPAK , DEEPAK T VISIT 15 MINUTES OFFICE 85167 RINALDINI RINALDINI OUTPATIEN 0 0 , DEEPAK , DEEPAK T VISIT 15 MINUTES OFFICE 81621 RINALDINI RINALDINI OUTPATIEN 0 0 , DEEPAK , DEEPAK T VISIT 15 MINUTES OFFICE 44934 RINALDINI RINALDINI OUTPATIEN 0 0 , DEEPAK , DEEPAK T VISIT 15 MINUTES OFFICE 84297 [facility] CONSULTAT 9 9 STACIE ALARCON ION EYEHLTH & NEW/ESTAB SURG PSC PATIENT 40 MIN OFFICE 10803 RINALDINI RINALDINI OUTPATIEN 9 9 , DEEPAK , DEEPAK T VISIT 10 MINUTES OFFICE 01059 RINALDINI RINALDINI OUTPATIEN 9 9 , DEEPAK DEEPAK T VISIT 15 MINUTES OFFICE 68936 JENNIFER LLAMAS, OUTPATIEN 9 9 TRACEY ALVARADO Morenita T VISIT [facility] 25 . MINUTES HOSPITAL GISSEL - 9 9 CO [facility] T OFFICE 77467 GSISEL OUTPATIEN 9 9 CO T VISIT 5 [facility] GISSEL - 9 9 CO [facility] T OFFICE 25573 GISSEL OUTPATIEN 9 9 CO T VISIT 5 [facility] GISSEL - 9 9 CO [facility] T OFFICE 46776 RINALDINI RINALDINI OUTPATIEN 9 9 , DEEPAK , DEEPAK T VISIT 15 MINUTES EMERGENCY 12563 GISSEL 9 9 CO [facility] T VISIT LOW/MODER SEVERITY EMERGENCY 13908 RINALDINI RINALDINI 9 9 , DEEPAK , DEEPAK DEPARTMEN T VISIT MODERATE SEVERITY HOSPITAL GISSEL - 9 9 CO [facility] T OFFICE 45526 RINALDINI RINALDINI OUTPATIEN 9 9 , DEEPAK DEEPAK T VISIT 15 MINUTES HOSPITAL GISSEL - 9 9 CO [facility] T HOSPITAL GISSEL - 9 9 CO [facility] T EMERGENCY 15752 GISSEL 9 9 CO [facility] T VISIT LIMITED/M INOR PROB OFFICE 93915 GISSEL OUTPATIEN 9 9 CO T VISIT 5 HOSPITAL MINUTES OFFICE 01891 RINALDINI RINALDINI OUTPATIEN 9 9 , DEEPAK , DEEPAK T VISIT 25 MINUTES HOSPITAL GISSEL - 9 9 [facility] T OFFICE 52207 JENNIFER LLAMAS, OUTPATIEN [address] [facility] 45 [facility] MINUTES . OFFICE 24758 RINALDINI RINALDINI OUTPATIEN 9 9 , DEEPAK , DEEPAK T VISIT 15 MINUTES OFFICE 13964 RINALDINI RINALDINI OUTPATIEN 9 9 , DEEPAK , DEEPAK T VISIT 15 MINUTES HOSPITAL GISSEL - 9 9 [facility] T OFFICE 27677 RINALDINI RINALDINI OUTPATIEN 9 9 , DEEPAK , DEEPAK T VISIT 10 MINUTES OFFICE 45092 DARELL ADAMS 9 9 MEDICAL CLEMENTE [facility]/ESTAB FOUNDATIO PATIENT 40 MIN HOSPITAL GISSEL - 9 9 [facility] T OFFICE 12409 RINALDINI RINALDINI OUTPATIEN 9 9 , DEEPAK , DEEPAK T VISIT 10 MINUTES OFFICE 47021 RINALDINI RINALDINI OUTPATIEN 9 9 , DEEPAK , DEEPAK T VISIT 10 MINUTES OFFICE 94490 RINALDINI RINALDINI OUTPATIEN 9 9 , DEEPAK , DEEPAK T VISIT 15 MINUTES OFFICE 29995 RINALDINI RINALDINI OUTPATIEN 9 9 , DEEPAK , DEEPAK T VISIT 10 MINUTES OFFICE 47015 RINALDINI RINALDINI OUTPATIEN 9 9 , DEEPAK , DEEPAK T VISIT 10 MINUTES OFFICE 54552 RINALDINI RINALDINI OUTPATIEN 9 9 , DEEPAK , DEEPAK T VISIT 10 MINUTES HOSPITAL GISSEL - 9 9 [facility] T OFFICE 86043 RINALDINI RINALDINI OUTPATIEN 9 9 , DEEPAK , DEEPAK T VISIT 10 MINUTES HOSPITAL ABBIE - 9 9 [facility] 73713 RINALDINI RINALDINI OUTPATIEN 9 9 , DEEPAK , DEEPAK T VISIT 10 MINUTES OFFICE 71669 RINALDINI RINALDINI OUTPATIEN 9 9 , DEEPAK , DEEPAK T VISIT 10 MINUTES OFFICE 60510 RINALDINI RINALDINI OUTPATIEN 9 9 , DEEPAK , DEEPAK T VISIT 10 MINUTES OFFICE 66837 [facility] INDY OUTPATIEN 9 9 ORIANA DIGGS T VISIT INTERNAL ROSITA F 15 MED MINUTES OFFICE 19042 [facility] MITCHELL, OUTPATIEN 9 9 AMES VIKY T VISIT INTERNAL 15 MED MINUTES HOSPITAL GISSEL - 9 9 [facility] T OFFICE 09082 [place] JANIS, OUTPATIEN 9 9 [place] THOMAS Mila T NEW 30 INTERNAL MINUTES MED OFFICE 99269 RINALDINI RINALDINI OUTPATIEN 9 9 , DEEPAK , DEEPAK T VISIT 10 MINUTES OFFICE 16102 RINALDINI RINALDINI OUTPATIEN 9 9 , DEEPAK , DEEPAK T VISIT 15 MINUTES OFFICE 38849 [place] CAMARILLO, OUTPATIEN 9 9 MEDICAL DENNIS T VISIT SERV 15 FOUNDATIO MINUTES HOSPITAL GISSEL - 8 8 [facility] T HOSPITAL GISSEL - 8 8 [facility] T OFFICE 15497 RINALDINI RINALDINI OUTPATIEN 8 8 , DEEPAK , DEEPAK T VISIT 10 MINUTES HOSPITAL GISSEL - 8 8 [facility] T HOSPITAL ABBIE - 8 8 [facility] T OFFICE 19893 BUSHRA CAMARILLO, OUTPATIEN 8 8 MEDICAL DENNIS T VISIT SERV 25 FOUNDATIO MINUTES OFFICE 63955 RINALDINI RINALDINI OUTPATIEN 8 8 , DEEPAK , DEEPAK T VISIT 10 MINUTES OFFICE 50581 BUSHRA CAMARILLO, OUTPATIEN 8 8 MEDICAL DENNIS T VISIT SERV 25 FOUNDATIO MINUTES OFFICE 94225 RINALDINI RINALDINI OUTPATIEN 8 8 , DEEPAK , DEEPAK T VISIT 10 MINUTES EMERGENCY 43028 GISSEL 8 8 [facility] T VISIT LOW/MODER SEVERITY HOSPITAL GISSEL - 8 8 [facility] T EMERGENCY 48496 [facility] 8 8 CO , [facility] T [facility]ISIT LIMITED/M INOR PROB OFFICE 58353 RINALDINI RINALDINI OUTPATIEN 8 8 , DEEPAK , DEEPAK T VISIT 10 MINUTES OFFICE 50561 [facility] 8 8 MEDICAL YPARAG T VISIT SERV 15 FOUNDATIO MINUTES HOSPITAL ABBIE - 8 8 [facility] T OFFICE 92130 RINALDINI RINALDINI OUTPATIEN 8 8 , DEEPAK , DEEPAK T VISIT 10 MINUTES OFFICE 34440 RINALDINI RINALDINI OUTPATIEN 8 8 , DEEPAK , DEEPAK T VISIT 5 MINUTES OFFICE 47038 RINALDINI RINALDINI OUTPATIEN 8 8 , DEEPAK , DEEPAK T VISIT 10 MINUTES OFFICE 25836 RINALDINI RINALDINI OUTPATIEN 8 8 , DEEPAK , DEEPAK T VISIT 10 MINUTES OFFICE 71426 [facility]UTES [facility]
--- OUTSIDE RECORDS SUMMARY | 2016-12-14 12:40 | External Medical Summary Rpt ---
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 [facility] UNCERTAIN [facility]IOLOGY BEHAVIOR [place]OC[place] K[place] [address] INSOMNIA 03-21-2012 CANDIDA TERAN UNSPECIFIED 53504 OTHER 03-14-2012 CANDIDA TERAN CHRONIC ALLERGIC CONJUNCTIVI TIS 8470 NECK SPRAIN 01-01-2012 [facility] 09793 EARLY 12-29-2011 [facility] 3531 LUMBOSACRAL 12-28-2011 [facility] PLEXUS LESIONS E9352 OTH 12-28-2011 [facility] OPIATES&REL NARCOTICS CAUS ADVRS EFF TX USE V5883 ENCOUNTER 12-28-2011 [facility] FOR THERAPEUTIC DRUG MONITORING V7109 OBSERVATION 12-28-2011 [facility] OF OTHER LABORATORIE SUSPECTED S OF [place] MENTAL CONDITION 6279 UNSPECIFIED 12-21-2011 [facility] MENOPAUSAL& POSTMENOPAU EARNEST DISORDER 64234 HYPERSOMNIA 11-21-2011 [facility], WITH SLEEP MANAGER CT APNEA [facility] UNSPECIFIED HOS 42166 OSTEOARTHRO 11-07-2011 CANDIDA TERAN S UNSPEC WHETHER GEN/LOC SHLDR REGION 41757 OSTEOARTHRO 11-07-2011 CANDIDA TERAN SIS UNSPEC WHETHER GEN/LOC LOWER LEG 7177 CHONDROMALA 11-06-2011 PETTE[facility] JAM ISIS OF [place] 19087 PLICA 11-06-2011 [facility] SYNDROME 65427 CHONDROMALA 11-03-2011 [facility] ISIS 7871 HEARTBURN 10-25-2011 JUAN-CO NKLIN NETO 12287 UNSPECIFIED 10-04-2011 [facility], SLEEP MANAGER CT APNEA [facility] 5368 DYSPEPSIA&O 09-25-2011 [facility], THER SPEC MANAGER CT DISORDERS [facility] STOMACH 5589 OTH&UNSPEC 09-25-2011 [facility], NONINFECTIO MANAGER CT US [facility] ITIS&COLITI S 2114 BENIGN 09-19-2011 PATHOLOGY & NEOPLASM OF CYTOLOGY RECTUM AND LAB ANAL CANAL 7821 RASH AND 09-14-2011 TAMLEBRON TERAN OTHER NONSPECIFIC SKIN ERUPTION 5789 UNSPECIFIED 08-23-2011 [facility] HEMORRHAGE NKLIN NETO OF GASTROINTES TINAL TRACT 59067 SWELLING OF 08-08-2011 [facility] LIMB RADIOLOGY ASSOCIAT 75479 CONTUSION 08-08-2011 [facility] 9593 INJURY 08-08-2011 [facility] OTHER&UNSPE RADIOLOGY CIFIED ASSOCIAT [facility] FOREARM&WRI ST 55124 REGULAR 07-03-2011 [facility] ASTIGMATISM GRE 7092 SCAR 05-31-2011 [facility] AND FIBROSIS OF SKIN 17618 INCONCLUSIV 05-31-2011 [place] [facility] [place] MAMMOGRAM SERV FOUNDATIO V134 PERSONAL 05-23-2011 LUIS DOTY HISTORY OF ARTHRITIS 9597 INJURY 05-06-2011 [facility] OTHER[facility]UNSPE HOSPITAL CIFIED KNEE LEG ANKLE&FOOT E8490 PLACE OF 05-06-2011 [facility] OCCURRENCE, HOSPITAL HOME E8859 FALL FROM 05-06-2011 [facility] OTHER HOSPITAL SLIPPING TRIPPING OR STUMBLING E8881 FALL 05-06-2011 [facility] RESULTING [facility]OSPITAL IN STRIKING AGAINST OTHER OBJECT 3540 CARPAL 04-07-2011 [facility] [place] [facility] SYNDROME S PLC 60503 UNSPEC 04-07-2011 [facility] [place] DISORDERS ORTHOPAEDIC BURSAE&TEND S PLC ONS SHOULDER REGION 591 HYDRONEPHRO 03-24-2011 [facility] SIS SWAPNA 5951 CHRONIC 03-24-2011 [facility] CYSTITIS 61796 MICROSCOPIC 03-24-2011 [facility] 7906 OTHER 03-17-2011 [facility] ABNORMAL [facility] CHEMISTRY 20139 UNS ADVRS 03-17-2011 [facility] EFF UNS RX [facility] MEDICINAL&B HOLDING IOLOGICAL SBSTNC 26666 INCOMPLETE 02-17-2011 [facility] BLADDER SWAPNA EMPTYING 59477 CYSTOCELE 01-27-2011 [facility] WITHOUT HOSPITAL MENTION UTERINE PROLAPSE MIDLN 6256 FEMALE 01-27-2011 [facility] STRESS HOSPITAL INCONTINENC E 92673 PRUNE BELLY 01-18-2011 [facility] 92081 CHRONIC 01-18-2011 [facility] FATIGUE [facility] SYNDROME HOLDING 5939 UNSPECIFIED 01-17-2011 [place] RADIOLOGY OF KIDNEY ASSOCIAT AND URETER 97957 GROSS 01-17-2011 [facility] 5982 POSTOPERATI 01-13-2011 [facility] VE URETHRAL SWAPNA STRICTURE 72027 MIXED 01-11-2011 [facility] INCONTINENC HOSPITAL E URGE AND STRESS 22399 URGE 01-10-2011 [facility] INCONTINENC SWAPNA E 84283 COMPLETE 12-20-2010 [facility] [place] RUPTURE OF ORTHOPAEDIC ROTATOR S PLC CUFF 7919 OTHER 12-13-2010 [facility] NONSPECIFIC HOSPITAL FINDING EXAMINATION OF URINE 01763 TRIGGER 12-05-2010 [facility] [place] FINGER ORTHOPAEDIC S PLC 7102 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 V1581 PERS HX 11-01-2010 [facility] NONCOMPLIAN MELINDA CE W/MED TX PRS [facility]AR[facility] HL[facility] 16041 SPRAIN AND 10-20-2010 [employer] STRAIN OF UNSPECIFIED SITE OF WRIST 7226 DEGENERATIO 10-18-2010 [facility] N MELINDA INTERVERTEB RAL DISC SITE UNSPEC 7231 CERVICALGIA 09-26-2010 [facility] IMAGING ASS 13625 UNSPECIFIED 09-21-2010 [facility] VIRAL HOSPITAL INFECTION IN CCE & UNS SITE 06465 DEHYDRATION 09-21-2010 [facility] HOSPITAL 3384 CHRONIC 09-21-2010 [facility] SYLVIA 16164 SPRAIN AND 09-20-2010 [facility] STRAIN OF MELINDA UNSPECIFIED SITE OF HAND V571 OTHER 07-20-2010 [facility] PHYSICAL HOSPITAL THERAPY 97961 UNSPECIFIED 07-13-2010 [place] [facility] ABNORMAL SERV MAMMOGRAM FOUNDATIO 12415 LUMP OR 06-27-2010 [place] [facility] M[place] IN SERV BREAST FOUNDATIO 06625 MAMMOGRAPHI 06-21-2010 [facility] MICROCALCIF ICATION 5272 SIALOADENIT 06-16-2010 [facility] IS MELINDA 18736 OTHER 06-16-2010 [facility] ABNORMAL MELINDA FINDING RADIOLOGICA L EXAM BREAST 59956 MASTODYNIA 05-24-2010 [facility] 9160 HIP THI 05-19-2010 [facility] LEG&ANK MELINDA ABRASION/FR ICION BURN W/O INF 83067 VOLUME 04-12-2010 [facility] DEPLETION MELINDA UNSPECIFIED 44193 DIVERTICULI 03-25-2010 [facility] TIS OF MELINDA COLON 11321 DIVERTICULO 03-17-2010 [facility] SIS OF MELINDA COLON 5931 HYPERTROPHY 03-17-2010 [facility] OF KIDNEY RADIOLOGY ASSOCIAT 5968 OTHER 03-17-2010 [facility] SPECIFIED RADIOLOGY DISORDERS ASSOCIAT OF BLADDER 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 EARNEST STATUS V8281 SPECIAL 07-23-2009 DORIAN OJEDA M.D.P.S.C. OSTEOPOROSI S 41764 SQUAMOUS 06-07-2009 [place]ST FOR BLEPHARITIS EYEHLTH & SURG PSC 28046 UNSPECIFIED 06-07-2009 [place] FOR [place]AR FILM EYEHLTH & INSUFFICIEN SURG PSC CY 3569 UNSPEC 05-19-2009 JENNIFER HEREDIT&IDI KWADWO ALVARADO M.D.P.S.C. PERIPHERAL NEUROPATHY V570 CARE 05-13-2009 [facility] INVOLVING [facility]OSPITAL BREATHING EXERCISES V5862 LONG-TERM 05-13-2009 [facility] (CURRENT) HOSPITAL USE OF ANTIBIOTICS 04005 CHRONIC 05-05-2009 [facility], OBSTRUCTIVE DEEPAK ASTHMA WITH EXACERBATIO N 4580 ORTHOSTATIC 05-04-2009 [facility] HOSPITAL HYPOTENSION 64183 OTHER 05-04-2009 [facility] CONVULSIONS HOSPITAL 7892 SPLENOMEGAL 05-04-2009 [facility] Y [facility] PSC 6926 UNSPECIFIED 04-11-2009 [facility] DISORDER 9134 ELB 04-11-2009 [facility] FORARM&WRST HOSPITAL INSECT BITE NONVENOMOUS W/O INF 8059 OPN FX UNS 03-15-2009 [facility], PART VERT DEEPAK COLUMN W/O SP CRD INJURY 69897 PAIN IN 03-09-2009 [facility]AT[facility] C JOINT, TYRONE ANKLE AND FOOT 65302 SPONDYLOSIS 01-18-2009 [place] [facility] UNSPEC SERV SITE W/O FOUNDATIO MENTION MYELOPATHY 00756 PATHOLOGIC 01-07-2009 [facility] FRACTURE OF HOSPITAL VERTEBRAE 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 REGION SPRAIN&STRA IN V5427 AFTERCARE 01-07-2009 [facility] HEALING HOSPITAL PATHOLOGIC FRACTURE VERTEBRAE 4658 ACUTE URIS 12-15-2008 RINALDINI, OF OTHER DEEPAK MULTIPLE SITES 61813 DISPLCMT 11-30-2008 [facility] LUMBAR [facility] INTERVERT ASSOCIATES DISC W/O PSC MYELOPATHY 03721 STRESS 11-30-2008 [facility] FRACTURE OF HOSPITAL OTHER BONE 48400 ATHEROSCLER 11-06-2008 [facility] EXTREMITIES UNSPEC 514 PULMONARY 09-28-2008 [facility] ASSOCIATES HYPOSTASIS PSC 2165 BENIGN 07-31-2008 PATHOLOGY & NEOPLASM OF CYTOLOGY SKIN OF LAB TRUNK EXCEPT SCROTUM E9064 BITE OF 07-31-2008 PATHOLOGY & NONVENOMOUS CYTOLOGY ARTHROPOD LAB 7079 CHRONIC 07-30-2008 [facility] ULCER OF HOSPITAL UNSPECIFIED SITE 7099 UNSPECIFIED 07-30-2008 RIN[facility]INI, DISORDER DEEPAK OF SKIN&SUBCUT ANEOUS TISSUE 7210 CERVICAL 07-16-2008 [facility] SPONDYLOSIS RADIOLOGY WITHOUT ASSOCIATES MYELOPATHY PSC V1272 PERSONAL 07-13-2008 [place] [facility] HISTORY OF SERV COLONIC FOUNDATIO POLYPS 44434 OTHER 06-18-2008 RIN[facility]DINI, SPECIFIED DEEPAK CIRCULATORY SYSTEM DISORDERS 08348 UNSPECIFIED 05-02-2008 [facility] ESOPHAGITIS 58374 POLYURIA 04-09-2008 [facility] 05145 OBESITY, 11-04-2007 [facility] UNSPECIFIED [facility] 33543 GEN 11-04-2007 RINTORSTENINI, OSTEOARTHRO DEEPAK SIS INVOLVING MULTIPLE SITES V074 HORMONE 08-23-2007 [facility] REPLAC[facility] V6700 FOLLOW-UP 08-23-2007 WOMEN'S EXAMINATION HEALTH FOLLOWING [...] ve LO 37 20 20 61 CA NM 50 17 17 16 RE AM 5 [...] 80 0- 1- 00 07 L ve IA 21 20 20 62 CA DE 61 [...] AR TA MA BL CY ET #2 IA 00 03 03 30 30 00 TO [...] 80 1- 4- 00 07 L ve IA 20 20 20 61 CA DE 81 17 17 00 RE 0 40 20 PH AR MG MA CY TA BL #2 ET ES 65 03 03 30 30 00 TO CI 86 -0 -2 .0 00 TA ti TA 20 1- 4- 00 07 L ve LO 37 20 20 60 CA NM 50 17 17 36 RE AM 5 [...] CA ZA 11 17 17 36 RE NM 0 31 IN PH E AR 10 [...] DR CY 40 #2 MG CA P IA 00 02 03 30 30 00 TO [...] CA ZA 11 17 17 36 RE NM 0 31 IN PH E AR 10 MA CY MG #2 TA BL ET FU 00 01 02 30 30 00 TO RO 78 -3 -2 .0 00 TA ti SE 11 1- 4- 00 07 L ve IA 81 20 20 61 CA DE 81 [...] ve LO 37 20 20 60 CA NM 50 17 17 36 RE AM 5 [...] CA ZA 11 17 17 36 RE NM 0 31 IN PH E AR 10 [...] 11 3- 3- 00 07 L ve IA 81 20 20 60 CA DE 81 [...] ve LO 37 20 20 60 CA NM 50 17 17 36 RE AM 5 [...] 1- 1- 00 IS 24 RE ve NM 50 20 20 LE N AM 91 [...] 7- 7- 00 IS 20 RE ve NM 50 20 20 LE N AM 91 [address] LEROY HB UG T R 40 CO MP MG AN Y TA BL ET CI 57 09 09 0 2. 4 CA 68 TA Ac TA 66 -0 -0 00 RL 56 MA ti LO 40 1- 1- 0 IS 20 RE ve NM 50 20 20 LE N AM 88 [address] LEROY HB UG T R 20 CO MP MG AN Y TA BL ET NM 37 08 08 3 56 28 CA [...] 0 14 7 CA 68 CA Ac NM 71 -1 -1 .0 RL 47 BA [...] CO MP TA AN BL Y ET NM 00 07 07 2 30 30 CA [...] AR la 6 MA bl CY e NM 37 05 06 1 56 28 CA [...] 0 14 7 CA 68 CA Ac NM 71 -1 -1 .0 RL 24 BA [...] 0 14 7 CA 68 CA Ac NM 71 -2 -2 .0 RL 17 BA [...] bl UG e CO MP AN Y NM 37 05 05 1 56 28 CA [...] 0 30 30 CA 68 TA Ac NM 14 -1 -1 .0 RL 12 MA [...] TA CO BL MP ET AN Y NM 37 01 03 1 56 28 CA [...] kylie UG e CO MP AN Y NM 37 01 01 1 56 28 CA [...] AR la 0 MA bl CY e NM 00 11 12 3 6. 15 SO 35 No Ac OV 08 -2 -2 70 PE 86 t ti EN 51 4- 3- 0 RS 13 Av ve TI 13 20 20 ai L 20 10 10 FA la HF 1 IA bl A LY e 90 DR MC [...] ai 31 10 10 FA la 4 IA bl LY e DR UG NM 00 11 11 3 6. 15 SO 35 No Ac OV 08 -2 -2 70 PE 86 t ti EN 51 4- 4- 0 RS 13 Av ve TI 13 20 20 ai L 20 10 10 FA la HF 1 IA bl A LY e 90 DR CAMPBELL [...] ai 31 10 10 FA la 4 IA bl LY e DR UG NM 00 09 10 2 6. 15 SO 35 No Ac OV 08 -2 -3 70 PE 29 t ti EN 51 4- 0- 0 RS 23 Av ve TI 13 20 20 ai L 20 10 10 FA la HF 1 IA bl A LY e 90 DR CAMPBELL UG G IN PEREZ LE R NM 37 09 10 2 56 28 SO 35 No Ac IL 00 -2 -3 .0 PE 32 t ti OS 00 9- 0- 00 RS 59 Av ve EC 45 20 20 ai 50 10 10 FA la OT 4 IA bl C LY e [address] [...] 0 6. 3 SO 35 No Ac NM 78 -2 -2 00 PE 52 t ti AZ 11 1- 1- 0 RS 37 Av ve OL 06 20 20 ai AM 10 10 10 FA la 5 IA bl 0. LY e 25 DR MG UG TA BL ET 00 08 10 3 14 20 SO 35 No Ac 59 -2 -1 .6 PE 02 t ti 70 4- 4- 99 RS 41 Av ve 01 20 20 ai 31 10 10 FA la 4 IA bl LY e DR UG NM 00 09 10 2 6. 15 SO 35 No Ac OV 08 -2 -1 70 PE 29 t ti EN 51 4- 4- 0 RS 23 Av ve TI 13 20 20 ai L 20 10 10 FA la HF 1 IA bl A LY e 90 DR MC UG G IN PEREZ LE R EF 00 10 10 3 30 12 SO 35 No Ac FE 00 -1 -1 .0 PE 46 t ti XO 80 4- 4- 00 RS 63 Av ve R 83 20 20 ai XR 72 10 10 FA la 2 IA bl [address] MG UG CA PS UL E ZO 00 10 10 0 30 30 SO 35 No Ac LP 09 -1 -1 .0 PE 46 t ti ID 30 4- 4- 00 RS 96 Av ve EM 07 20 20 ai 30 10 10 FA la TA 1 IA bl RT LY e RA TE DR 5 UG MG TA BL ET NM 37 09 09 2 56 28 SO 35 No Ac IL 00 -2 -2 .0 PE 32 t ti OS 00 9- 9 00 RS 59 Av ve EC 45 20 20 ai 50 10 10 FA la OT 4 IA bl C LY e [address] UG MG TA BL ET 00 09 09 0 10 5 SO 35 No Ac 14 -2 -2 .0 PE 29 t ti 31 7- 7- 00 RS 73 Av ve 47 20 20 ai 70 10 10 FA la 1 IA bl LY e DR UG NM 00 09 09 2 6. 15 SO 35 No Ac OV 08 -2 -2 70 PE 29 t ti EN 51 4- 4- 0 RS 23 Av ve TI 13 20 20 ai L 20 10 10 FA la HF 1 IA bl A LY e 90 DR UG [...] ai 13 10 10 FA la 8 IA bl LY e DR UG GA 68 09 09 0 60 30 SO 35 No Ac BA 46 -1 -1 .0 PE 21 t ti PE 20 6- 6- 00 RS 39 Av ve NT 12 20 20 ai IN 60 10 10 FA la 5 IA bl 60 LY e [address] UG TA BL ET 00 08 09 3 14 20 SO 35 No Ac 59 -2 -1 .6 PE 02 t ti 70 4- 3- 99 RS 41 Av ve 01 20 20 ai 31 10 10 FA la 4 IA bl LY e DR UG CI 55 09 09 0 14 7 SO 35 No Ac NM 11 -0 -0 .0 PE 10 t ti OF 10 2- 2- 00 RS 08 Av ve LO 12 20 20 ai XA 70 10 10 FA la CI 1 IA bl N LY e HC L DR 50 UG 0 MG TA B 00 08 08 0 14 7 SO 35 No Ac 14 -2 -2 .0 PE 02 t ti 31 4- 4- 00 RS 39 Av ve 47 20 20 ai 70 10 10 FA la 1 IA bl LY e DR UG NM 00 08 08 5 30 30 SO 35 No Ac EM 04 -2 -2 .0 PE 02 t ti AR 61 4- 4- 00 RS 42 Av ve IN 10 20 20 ai 28 10 10 FA la 0. 1 IA bl 62 LY e [address] UG TA BL ET NM 37 05 08 3 56 28 SO 34 No Ac IL 00 -1 -1 .0 PE 31 t ti OS 00 8- 9- 00 RS 15 Av ve EC 45 20 20 ai 50 10 10 FA la OT 4 IA bl C LY e [address] UG MG TA BL ET 00 07 08 3 14 15 SO 34 No Ac 59 -2 -1 .6 PE 81 t ti 70 8- 9 99 RS 21 Av ve 01 20 20 ai 31 10 10 FA la 4 IA bl LY e DR UG HY 00 08 08 0 40 10 SO [address] 18 -1 -1 .0 PE 94 t ti OX 50 3- 3- 00 RS 12 Av ve YZ 61 20 20 ai IN 30 10 10 FA la E 5 IA bl PA LY e M 25 DR UG MG CA P DI 00 08 08 0 30 15 SO 34 No Ac PH 37 -1 -1 .0 PE 94 t ti EN 80 3- 3- 00 RS 13 Av ve OX 41 20 20 ai YL 51 10 10 FA la AT 0 IA bl E- LY e AT RO DR P UG 2. 5- 0. 02 5 MARKS 00 08 08 0 14 14 SO 34 No Ac LF 60 -1 -1 .0 PE 92 t ti AM 35 1- 1- 00 RS 64 Av ve ET 78 20 20 ai HO 12 10 10 FA la XA 8 IA bl ZO LY e LE -T DR MP UG DS TA BL ET PE 00 07 08 1 59 1 SO 34 No Ac RM 47 -1 -0 .0 PE 71 t ti ET 25 5- 5- 00 RS 19 Av ve HR 24 20 20 ai IN 26 10 10 FA la 7 IA bl 1% LY e LO DR TI UG ON 00 07 07 3 14 15 SO 34 No Ac 59 -2 -2 .6 PE 81 t ti 70 8 8 99 RS 21 Av ve 01 20 20 ai 31 10 10 FA la 4 IA bl LY e DR UG AR 24 07 07 4 15 10 SO 34 No Ac TI 38 -2 -2 .0 PE 80 t ti FI 50 7- 7- 00 RS 49 Av ve CI 00 20 20 ai AL 60 10 10 FA la 5 IA bl TE LY e AR S DR UG OP S TR 50 07 07 4 15 30 SO 34 No Ac AZ 11 -2 -2 .0 PE 80 t ti OD 10 7- 7- 00 RS 50 Av ve ON 43 20 20 ai E 30 10 10 FA la 50 3 IA bl LY e MG DR TA UG BL ET NM 37 05 07 3 56 28 SO 34 No Ac IL 00 -1 -2 .0 PE 31 t ti OS 00 8- 6- 00 RS 15 Av ve EC 45 20 20 ai 50 10 10 FA la OT 4 IA bl C LY e [address] UG MG TA BL ET NM 00 06 07 2 6. 15 SO 34 No Ac OV 08 -2 -2 70 PE 54 t ti EN 51 1- 6- 0 RS 81 Av ve TI 13 20 20 ai L 20 10 10 FA la HF 1 IA bl A LY e 90 DR VOGEL G IN PEREZ LE R PE 00 07 07 1 59 1 SO 34 No Ac RM 47 -1 -1 .0 PE 71 t ti ET 25 5- 5- 00 RS 19 Av ve HR 24 20 20 ai IN 26 10 10 FA la 7 IA bl 1% LY e LO DR CHAR [...] 0 UM 00 10 10 FA 5 IA EL LY LE N DR Demetrice UG TI 00 05 07 2 60 30 SO 34 FL Ac ZA 18 -0 -0 .0 PE 19 IN ti NI 50 4- 9- 00 RS 71 CH ve DI 03 20 20 UM NE 45 10 10 FA 1 IA EL HC LY LE L N 2 DR Demetrice MG UG TA BL ET 00 03 07 5 14 15 SO 33 No Ac 59 -1 -0 .6 PE 76 t ti 70 2- 6- 99 RS 71 Av ve 01 20 20 ai 31 10 10 FA la 4 IA bl LY e DR UG NM 00 03 07 3 30 30 SO 33 No Ac EM 04 -1 -0 .0 PE 76 t ti AR 61 2- 6- 00 RS 72 Av ve IN 10 20 20 ai 28 10 10 FA la 0. 1 IA bl 62 LY e [address] UG TA BL ET NM 00 06 07 2 6. 15 SO 34 No Ac OV 08 -2 -0 70 PE 54 t ti EN 51 1- 6- 0 RS 81 Av ve TI 13 20 20 ai L 20 10 10 FA la HF 1 IA bl A LY e 90 DR VOGEL G IN PEREZ LE R NM 00 06 06 2 6. 15 SO 34 No Ac OV 08 -2 -2 70 PE 54 t ti EN 51 1- 1- 0 RS 81 Av ve TI 13 20 20 ai L 20 10 10 FA la HF 1 IA bl A LY e 90 DR MC UG G IN PEREZ LE R 00 03 06 5 14 15 SO 33 No Ac 59 -1 -1 .6 PE 76 t ti 70 2- 6- 99 RS 71 Av ve 01 20 20 ai 31 10 10 FA la 4 IA bl LY e DR UG NM 37 05 06 3 56 28 SO 34 No Ac IL 00 -1 -1 .0 PE 31 t ti OS 00 8- 6- 00 RS 15 Av ve EC 45 20 20 ai 50 10 10 FA la OT 4 IA bl C LY e [address] UG MG TA BL ET CE 68 06 06 0 28 7 SO 34 No Ac PH 18 -1 -1 .0 PE 49 t ti AL 00 4- 4- 00 RS 94 Av ve EX 12 20 20 ai IN 20 10 10 FA la 2 IA bl 50 LY e [address] [...] 0 UM 00 10 10 FA 5 IA EL LY LE N DR Demetrice UG NM 00 03 06 3 30 30 SO 33 No Ac EM 04 -1 -0 .0 PE 76 t ti AR 61 2- 8- 00 RS 72 Av ve IN 10 20 20 ai 28 10 10 FA la 0. 1 IA bl 62 LY e [address] NIKKY TA BL ET 00 03 05 5 14 15 SO 33 No Ac 59 -1 -2 .6 PE 76 t ti 70 2- 7 99 RS 71 Av ve 01 20 20 ai 31 10 10 FA la 4 IA bl LY e DR UG NM 00 03 05 3 6. 15 SO 33 No Ac OV 08 -1 -2 70 PE 76 t ti EN 51 2- 7- 0 RS 73 Av ve TI 13 20 20 ai L 20 10 10 FA la HF 1 IA bl A LY e 90 DR CAMPBELL UG G IN PEREZ LE R AD 00 05 05 2 60 30 SO 34 No Ac VA 17 -2 -2 .0 PE 38 t ti IR 30 7- 7- 00 RS 21 Av ve 69 20 20 ai 25 60 10 10 FA la 0- 0 IA bl [address] HARRISON UG US CL 00 05 05 0 30 30 SO 34 No Ac ON 37 -2 -2 .0 PE 36 t ti ID 80 5- 5- 00 RS 78 Av ve IN 15 20 20 ai E 21 10 10 FA la HC 0 IA bl L LY e 0. 1 DR MG UG TA BL ET AZ 00 05 05 0 6. 5 SO 34 No Ac IT 78 -1 -1 00 PE 31 t ti HR 11 8- 8- 0 RS 14 Av ve OM 49 20 20 ai YC 66 10 10 FA la IN 8 IA bl LY e [address] MG UG TA BL ET NM 37 05 05 3 56 28 SO 34 No Ac IL 00 -1 -1 .0 PE 31 t ti OS 00 8- 8- 00 RS 15 Av ve EC 45 20 20 ai 50 10 10 FA la OT 4 IA bl C LY e [address] [...] ai 31 10 10 FA la 4 IA bl LY e DR UG NM 00 03 05 3 30 30 SO 33 No Ac EM 04 -1 -0 .0 PE 76 t ti AR 61 2- 5- 00 RS 72 Av ve IN 10 20 20 ai 28 10 10 FA la 0. 1 IA bl 62 LY e [address] UG TA BL ET NM 00 03 05 3 6. 15 SO 33 No Ac OV 08 -1 -0 70 PE 76 t ti EN 51 2- 5- 0 RS 73 Av ve TI 13 20 20 ai L 20 10 10 FA la HF 1 IA bl A LY e 90 DR MC UG G IN PEREZ LE R TI 00 05 05 2 60 30 SO 34 FL Ac ZA 18 -0 -0 .0 PE 19 IN ti NI 50 4- 4- 00 RS 71 CH ve DI 03 20 20 UM NE 45 10 10 FA 1 IA EL HC LY LE L N 2 [...] 80 10 10 FA la HC 1 IA bl L LY e 10 DR MG UG TA BL ET AL 24 04 04 1 24 24 SO 34 No Ac LE 38 -1 -1 .0 PE 03 t ti RG 50 4- 4- 00 RS 24 Av ve Y 47 20 20 ai 25 96 10 10 FA la 2 IA bl MG LY e TA DR BL UG ET NM 37 01 04 3 56 28 SO 33 No Ac IL 00 -0 -0 .0 PE 25 t ti OS 00 7- 8- 00 RS 48 Av ve EC 45 20 20 ai 50 10 10 FA la OT 4 IA bl C LY e [address] UG MG TA BL ET 00 03 04 5 14 15 SO 33 No Ac 59 -1 -0 .6 PE 76 t ti 70 2- 8- 99 RS 71 Av ve 01 20 20 ai 31 10 10 FA la 4 IA bl LY e DR UG NM 00 03 04 3 6. 15 SO 33 No Ac OV 08 -1 -0 70 PE 76 t ti EN 51 2- 8- 0 RS 73 Av ve TI 13 20 20 ai L 20 10 10 FA la HF 1 IA bl A LY e 90 DR MC UG G IN PEREZ LE R VE 68 04 04 3 30 30 SO 33 No Ac NL 38 -0 -0 .0 PE 93 t ti AF 20 2- 2- 00 RS 99 Av ve AX 02 20 20 ai IN 10 10 10 FA la E 1 IA bl HC LY e L 75 DR UG MG TA BL ET TR 00 04 04 3 30 30 SO 33 No Ac IC 07 -0 -0 .0 PE 94 t ti OR 46 2- 2- 00 RS 00 Av ve 12 20 20 ai 48 29 10 10 FA la 0 IA bl MG LY e TA DR BL UG ET 00 09 03 11 36 30 YO 21 No Ac 18 -0 -3 0. UR 04 t ti 57 3- 1- 00 2 Av ve 32 20 20 0 PH ai 26 09 10 AR la 0 MA bl CY e CI 55 03 03 0 10 10 SO 33 No Ac NM 11 -1 -1 .0 PE 76 t ti OF 10 2- 2- 00 RS 68 Av ve LO 12 20 20 ai XA 70 10 10 FA la CI 1 IA bl N LY e HC L DR 50 UG 0 MG TA B 00 03 03 5 14 15 SO 33 No Ac 59 -1 -1 .6 PE 76 t ti 70 2- 2- 99 RS 71 Av ve 01 20 20 ai 31 10 10 FA la 4 IA bl LY e DR UG NM 00 03 03 3 30 30 SO 33 No Ac EM 04 -1 -1 .0 PE 76 t ti AR 61 2- 2- 00 RS 72 Av ve IN 10 20 20 ai 28 10 10 FA la 0. 1 IA bl 62 LY e [address] UG TA BL ET NM 00 03 03 3 6. 15 SO 33 No Ac OV 08 -1 -1 70 PE 76 t ti EN 51 2- 2- 0 RS 73 Av ve TI 13 20 20 ai L 20 10 10 FA la HF 1 IA bl A LY e 90 DR MC UG G IN PEREZ LE R EY 00 03 03 0 12 30 SO 33 No Ac E 90 -1 -1 0. PE 76 t ti WA 45 2- 2- 00 RS 76 Av ve SH 37 20 20 0 ai 72 10 10 FA la SO 0 IA bl RAUL LY e TI ON DR UG NM 37 01 03 3 56 28 SO 33 No Ac IL 00 -0 -0 .0 PE 25 t ti OS 00 7- 8- 00 RS 48 Av ve EC 45 20 20 ai 50 10 10 FA la OT 4 IA bl C LY e [address] UG MG TA BL ET 00 03 03 1 90 30 SO 33 LA Ac 59 -0 -0 .0 PE 66 RS ti 10 2- 2- 00 RS 66 ON ve 54 20 20 00 10 10 FA LA 5 IA UR LY EN K DR UG 00 02 02 00 14 15 SO 33 No Ac 59 -1 -2 .6 PE 59 t ti 70 9- 6- 99 RS 45 Av ve 01 20 20 ai 31 10 10 FA la 4 IA bl LY e DR UG MU 63 02 02 00 40 10 SO 33 No Ac CI 82 -0 -2 .0 PE 50 t ti NE 40 8- 6- 00 RS 40 Av ve X 00 20 20 ai ER 83 10 10 FA la 4 IA bl 60 LY e [address] UG TA BL ET NM 37 01 02 01 56 28 SO 33 No Ac IL 00 -0 -2 .0 PE 25 t ti OS 00 7- 6- 00 RS 48 Av ve EC 45 20 20 ai 50 10 10 FA la OT 4 IA bl C LY e [address] SHER MG TA BL ET NM 00 02 02 00 6. 15 SO 33 No Ac OV 08 -1 -2 70 PE 59 t ti EN 51 9- 6- 0 RS 44 Av ve TI 13 20 20 ai L 20 10 10 FA la HF 1 IA bl A LY e 90 DR VOGEL G IN PEREZ LE R AZ 64 02 02 00 6. 5 SO 33 No Ac IT 67 -0 -2 00 PE 50 t ti HR 90 8- 6- 0 RS 39 Av ve OM 96 20 20 ai YC 10 10 10 FA la IN 5 IA bl LY e [address] UG TA BL ET 00 12 02 01 90 30 SO 33 LA Ac 59 -3 -1 .0 PE 19 RS ti 10 0- 1- 00 RS 65 ON ve 54 20 20 00 09 10 FA LA 5 IA UR LY EN K DR NIKKY 00 05 02 06 36 30 YO 18 No Ac 18 -2 -1 0. UR 98 t ti 57 2- 1- 00 4 Av ve 32 20 20 0 PH ai 26 09 10 AR la 0 MA bl CY e NM 00 12 01 01 6. 15 SO 33 No Ac OV 08 -1 -2 70 PE 09 t ti EN 51 6- 8- 0 RS 53 Av ve TI 13 20 20 ai L 20 09 10 FA la HF 1 IA bl A LY e 90 DR VOGEL G IN PEREZ LE R CY 00 12 01 01 30 30 SO 33 FL Ac MB 00 -1 -2 .0 PE 06 IN ti AL 23 2- 8- 00 RS 47 CH ve TA 23 20 20 UM 56 09 10 FA 20 0 IA EL LY LE MG N DR Suresh CA UG PS UL E TI 00 12 01 00 60 30 SO 33 LA Ac ZA 18 -1 -2 .0 PE 06 RS ti NI 50 2- 8- 00 RS 48 ON ve DI 03 20 20 NE 45 09 10 FA LA 1 IA UR HC LY EN L K 2 DR UG TA BL ET 00 12 01 01 14 20 SO 33 No Ac 59 -1 -2 .6 PE 09 t ti 70 6- 8- 99 RS 52 Av ve 01 20 20 ai 31 09 10 FA la 4 IA bl LY e DR UG NM 37 01 01 00 56 28 SO 33 No Ac IL 00 -0 -1 .0 PE 25 t ti OS 00 7- 4- 00 RS 48 Av ve EC 45 20 20 ai 50 10 10 FA la OT 4 IA bl C LY e [address] UG MG TA BL ET 64 01 01 00 12 30 SO 33 No Ac 72 -0 -1 0. PE 25 t ti 00 7- 4- 00 RS 47 Av ve 15 20 20 0 ai 80 10 10 FA la 6 IA bl LY e DR NIKKY 00 12 01 00 90 30 SO 33 LA Ac 59 -3 -1 .0 PE 19 RS ti 10 0- 4- 00 RS 65 ON ve 54 20 20 00 09 10 FA LA 5 IA UR LY EN K DR SHER 00 [...] UM 56 09 09 FA 20 0 IA EL LY LE MG N DR J CA UG PS UL E NM 00 12 12 00 6. 15 SO 33 No Ac OV 08 -1 -3 70 PE 09 t ti EN 51 6- 1- 0 RS 53 Av ve TI 13 20 20 ai L 20 09 09 FA la HF 1 IA bl A LY e 90 DR VOGEL G IN PEREZ LE R NM 00 11 12 01 30 30 SO 32 No Ac EM 04 -0 -3 .0 PE 74 t ti AR 61 6- 1- 00 RS 77 Av ve IN 10 20 20 ai 28 09 09 FA la 0. 1 IA bl 62 LY e [address] UG TA BL ET TI 00 10 12 01 60 30 SO 32 LA Ac ZA 18 -0 -3 .0 PE 49 RS ti NI 50 7- 1- 00 RS 88 ON ve DI 03 20 20 NE 45 09 09 FA LA 1 IA UR HC LY EN L K 2 DR MG UG TA BL ET 00 12 12 00 14 20 SO 33 No Ac 59 -1 -3 .6 PE 09 t ti 70 6- 1- 99 RS 52 Av ve 01 20 20 ai 31 09 09 FA la 4 IA bl LY e DR UG 00 10 12 01 3. 15 SO 32 BL Ac 16 -2 -0 50 PE 64 AN ti 80 7- 3- 0 RS 42 DF ve 02 20 20 OR 63 09 09 FA D 8 IA DA LY D DR SHER 00 05 12 04 36 30 YO 18 No Ac 18 -2 -0 0. UR 98 t ti 57 2- 3- 00 4 Av ve 32 20 20 0 PH ai 26 09 09 AR la 0 MA bl CY e NM 64 10 11 00 60 30 SO 32 No Ac EV 76 -1 -1 .0 PE 49 t ti AC 40 2- 9- 00 RS 91 Av ve ID 04 20 20 ai 61 [address] 3 IA bl LY e 30 DR UG CA PS UL E NM 00 11 11 00 30 30 SO 32 No Ac EM 04 -0 -1 .0 PE 74 t ti AR 61 6- 9- 00 RS 77 Av ve IN 10 20 20 ai 28 09 09 FA la 0. 1 IA bl 62 LY e [address] NIKKY TA BL ET 00 08 11 03 14 15 SO 31 No Ac 59 -1 -1 .6 PE 97 t ti 70 1- 9- 99 RS 04 Av ve 01 20 20 ai 31 09 09 FA la 4 IA bl LY e DR SHER NM 00 08 11 03 6. 15 SO 31 No Ac OV 08 -1 -1 70 PE 97 t ti EN 51 1- 9- 0 RS 05 Av ve TI 13 20 20 ai L 20 09 09 FA la HF 1 IA bl A LY e 90 DR CAMPBELL UG G IN PEREZ LE R 00 10 11 00 3. 15 SO 32 BL Ac 16 -2 -0 50 PE 64 AN ti 80 7- 5- 0 RS 42 DF ve 02 20 20 OR 63 09 09 FA D 8 IA DA LY D DR SHER GE 24 10 10 00 5. 7 SO 32 LA Ac NT 20 -1 -2 00 PE 49 RS ti AM 80 2- 2- 0 RS 92 ON ve IC 58 20 20 IN 06 09 09 FA LA 0 IA UR 0. LY EN 3% K DR LANCASTER UG E OP S CY 00 10 10 00 30 30 SO 32 LA Ac MB 00 -0 -2 .0 PE 49 RS ti AL 23 7- 2- 00 RS 87 ON ve TA 24 20 20 03 09 09 FA LA 30 0 IA UR LY EN MG K CA UG [...] ai 31 09 09 FA la 4 IA bl LY e DR UG AZ 64 10 10 00 6. 5 SO 32 No Ac IT 67 -1 -2 00 PE 54 t ti HR 90 6- 2- 0 RS 71 Av ve OM 96 20 20 ai YC 10 09 09 FA la IN 5 IA bl LY e [address] MG UG TA BL ET ME 50 10 10 00 40 10 SO 32 No Ac TR 11 -1 -2 .0 PE 54 t ti ON 10 6- 2- 00 RS 70 Av ve ID 33 20 20 ai AZ 30 09 09 FA la OL 6 IA bl E LY e [address] MG UG TA BL ET MU 63 10 10 00 40 10 SO 32 No Ac CI 82 -1 -2 .0 PE 54 t ti NE 40 6- 2- 00 RS 72 Av ve X 00 20 20 ai ER 83 09 09 FA la 4 IA bl 60 LY e [address] UG TA BL ET TI 60 10 10 00 60 30 SO 32 LA Ac ZA 50 -0 -2 .0 PE 49 RS ti NI 50 7- 2- 00 RS 88 ON ve DI 25 20 20 NE 10 09 09 FA LA 2 IA UR HC LY EN L K 2 DR MG UG TA BL ET NM 00 08 10 02 6. 15 SO 31 No Ac OV 08 -1 -2 70 PE 97 t ti EN 51 1- 2- 0 RS 05 Av ve TI 13 20 20 ai L 20 09 09 FA la HF 1 IA bl A LY e 90 DR MC UG G IN PEREZ LE R NM 68 09 10 00 15 4 SO 32 No Ac OM 38 -2 -0 .0 PE 35 t ti ET 20 4- 8- 00 RS 26 Av ve PEREZ 04 20 20 ai ZI 00 09 09 FA la NE 1 IA bl LY e [address] UG MG TA BL ET 00 10 10 00 21 7 SO 32 No Ac 55 -0 -0 .0 PE 41 t ti 50 2- 8- 00 RS 85 Av ve 30 20 20 ai 13 09 09 FA la 8 IA bl LY e DR UG CE 68 09 10 00 28 7 SO 32 No Ac PH 18 -2 -0 .0 PE 35 t ti AL 00 4- 8- 00 RS 38 Av ve EX 12 20 20 ai IN 20 09 09 FA la 2 IA bl 50 LY e [address] UG CA PS UL E NM 64 06 10 02 30 30 SO 31 No Ac EV 76 -2 -0 .0 PE 66 t ti AC 40 6- 8- 00 RS 24 Av ve ID 04 20 20 ai 61 [address] 3 IA bl LY e 30 DR MG UG CA PS UL E NM 00 08 09 01 6. 15 SO 31 No Ac OV 08 -1 -2 70 PE 97 t ti EN 51 1- 4- 0 RS 05 Av ve TI 13 20 20 ai L 20 09 09 FA la HF 1 IA bl A LY e 90 DR CAMPBELL UG G IN PEREZ LE R 00 08 09 01 14 15 SO 31 No Ac 59 -1 -2 .6 PE 97 t ti 70 1- 4- 99 RS 04 Av ve 01 20 20 ai 31 09 09 FA la 4 IA bl LY e DR UG TI 60 08 09 01 60 30 SO 32 LA Ac ZA 50 -1 -2 .0 PE 00 RS ti NI 50 4- 4- 00 RS 27 ON ve DI 25 20 20 NE 10 09 09 FA LA 2 IA UR HC LY EN L K 2 MG UG TA BL ET 00 08 09 01 90 30 SO 32 LA Ac 59 -1 -2 .0 PE 00 RS ti 10 4- 4- 00 RS 28 ON ve 54 20 20 00 09 09 FA LA 5 IA UR LY EN K DR NIKKY NM 68 08 09 00 18 5 SO 32 No Ac OM 38 -2 -1 .0 PE 07 t ti ET 20 4- 0- 00 RS 82 Av ve PEREZ 04 20 20 ai ZI 00 09 09 FA la NE 1 IA bl LY e [address] SHER [...] 20 00 09 09 FA LA 5 IA UR LY EN K DR UG NM 00 08 08 00 6. 15 SO 31 No Ac OV 08 -1 -2 70 PE 97 t ti EN 51 1- 7- 0 RS 05 Av ve TI 13 20 20 ai L 20 09 09 FA la HF 1 IA bl A LY e 90 DR CAMPBELL UG G IN PEREZ LE R 00 08 08 00 14 15 SO 31 No Ac 59 -1 -2 .6 PE 97 t ti 70 - 7- 99 RS 04 Av ve 01 20 20 ai 31 09 09 FA la 4 IA bl LY e DR UG 00 08 08 00 30 30 SO 32 LA Ac 00 -1 -2 .0 PE 00 RS ti 23 4- 7- 00 RS 26 ON ve 23 20 20 73 09 09 FA LA 0 IA UR LY EN K DR UG TI 60 08 08 00 60 30 SO 32 LA Ac ZA 50 -1 -2 .0 PE 00 RS ti NI 50 4- 7- 00 RS 27 ON ve DI 25 20 20 NE 10 09 09 FA LA 2 IA UR HC LY EN L K 2 DR MG UG TA BL ET NM 64 06 08 01 30 30 SO 31 No Ac EV 76 -2 -2 .0 PE 66 t ti AC 40 6- 7- 00 RS 24 Av ve ID 04 20 20 ai 61 [address] 3 IA bl LY e 30 DR MG UG [...] AR la 0 MA bl CY e NM 00 07 07 00 6. 15 SO 31 No Ac OV 08 -2 -3 70 PE 81 t ti EN 51 0- 0- 0 RS 72 Av ve TI 13 20 20 ai L 20 09 09 FA la HF 1 IA bl A LY e 90 DR MC UG G IN PEREZ LE R 00 07 07 00 14 15 SO 31 No Ac 59 -2 -3 .6 PE 81 t ti 70 0- 0- 99 RS 73 Av ve 01 20 20 ai 31 09 09 FA la 4 IA bl LY e DR UG NM 00 04 07 03 30 30 SO 31 No Ac EM 04 -2 -3 .0 PE 16 t ti AR 61 0- 0- 00 RS 41 Av ve IN 10 20 20 ai 28 09 09 FA la 0. 1 IA bl 62 LY e [address] UG TA BL ET 00 06 07 00 12 30 SO 31 No Ac 60 -2 -1 0. PE 65 t ti 33 5- 6- 00 RS 94 Av ve 88 20 20 0 ai 23 09 09 FA la 2 IA bl LY e DR UG VE 00 06 07 00 8. 15 SO 31 No Ac NT 17 -2 -0 00 PE 66 t ti OL 30 6- 2- 0 RS 25 Av ve IN 68 20 20 ai 22 09 09 FA la HF 4 IA bl A LY e 90 DR CAMPBELL UG G IN PEREZ LE R NM 68 06 07 00 20 5 SO 31 No Ac OM 38 -2 -0 .0 PE 65 t ti ET 20 5- 2- 00 RS 96 Av ve PEREZ 04 20 20 ai ZI 00 09 09 FA la NE 1 IA bl LY e [address] NIKKY MG TA BL ET GE 00 03 07 01 60 30 SO 30 No Ac MF 09 -1 -0 .0 PE 84 t ti IB 30 6- 2- 00 RS 83 Av ve RO 67 20 20 ai ZI 00 09 09 FA la L 5 IA bl 60 LY e [address] UG TA BL ET AD 00 02 07 02 60 30 SO 30 No Ac VA 17 -0 -0 .0 PE 47 t ti IR 30 3- 2- 00 RS 47 Av ve 69 20 20 ai 25 60 09 09 FA la 0- 0 IA bl 50 LY e DI SK UG US 00 02 07 02 14 15 SO 30 No Ac 59 -0 -0 .6 PE 47 t ti 70 3- 2- 99 RS 45 Av ve 01 20 20 ai 31 09 09 FA la 4 IA bl LY e DR UG DI 00 06 07 00 10 2 SO 31 No Ac PH 37 -2 -0 .0 PE 65 t ti EN 80 5- 2- 00 RS 95 Av ve OX 41 20 20 ai YL 51 09 09 FA la AT 0 IA bl E- LY e AT RO DR Deshaun UG 2. 5- 0. 02 5 NM 00 04 07 02 30 30 SO 31 No Ac EM 04 -2 -0 .0 PE 16 t ti AR 61 0- 2- 00 RS 41 Av ve IN 10 20 20 ai 28 09 09 FA la 0. 1 IA bl 62 LY e [address] UG TA BL ET 00 05 07 01 36 30 YO 18 No Ac 18 -2 -0 0. UR 98 t ti 57 2- 2- 00 4 Av ve 32 20 20 0 PH ai 26 09 09 AR la 0 MA bl CY e NM 64 06 07 00 30 30 SO 31 No Ac EV 76 -2 -0 .0 PE 66 t ti AC 40 6- 2- 00 RS 24 Av ve ID 04 20 20 ai 61 [address] 3 IA bl LY e 30 DR MG UG CA PS UL E AL 00 06 06 00 60 30 SO 31 No Ac NM 78 -0 -1 .0 PE 52 t ti AZ 11 5- 8- 00 RS 41 Av ve OL 07 20 20 ai AM 71 09 09 FA la 0 IA bl 0. LY e [address] UG TA BL ET NM 00 04 06 01 30 30 SO 31 No Ac EM 04 -2 -0 .0 PE 16 t ti AR 61 0- 4- 00 RS 41 Av ve IN 10 20 20 ai 28 09 09 FA la 0. 1 IA bl 62 LY e [address] UG TA BL ET NM 00 05 06 00 6. 15 SO 31 No Ac OV 08 -2 -0 70 PE 45 t ti EN 51 8- 4- 0 RS 24 Av ve TI 13 20 20 ai L 20 09 09 FA la HF 1 IA bl A LY e 90 DR MC [...] ai 56 09 09 FA la 5 IA bl LY e DR UG AL 00 05 05 00 2. 1 SO 31 No Ac NM 78 -1 -2 00 PE 37 t ti AZ 11 5- 1- 0 RS 03 Av ve OL 07 20 20 ai AM 71 09 09 FA la 0 IA bl 0. LY e [address] UG TA BL ET 63 05 05 00 40 10 SO 31 No Ac 30 -0 -2 .0 PE 28 t ti 40 5- 1- 00 RS 63 Av ve 65 20 20 ai 70 09 09 FA la 5 IA bl LY e DR UG NM 64 01 05 03 30 30 SO 30 No Ac EV 76 -1 -2 .0 PE 35 t ti AC 40 5- 1- 00 RS 42 Av ve ID 04 20 20 ai 61 [address] 3 IA bl LY e 30 DR MG UG CA PS UL E 00 05 05 00 30 7 SO 31 No Ac 59 -0 -2 .0 PE 28 t ti 12 5- 1- 00 RS 64 Av ve 22 20 20 ai 80 09 09 FA la 5 IA bl LY e DR UG FL 60 05 05 00 16 30 SO 31 No Ac UT 50 -0 -2 .0 PE 28 t ti IC 50 5- 1- 00 RS 60 Av ve 82 20 20 ai ON 90 09 09 FA la E 1 IA bl NM LY e OP DR 50 UG MC G SP RA Y 00 05 05 00 60 15 SO 31 No Ac 60 -0 -2 .0 PE 32 t ti 33 8- 1- 00 RS 25 Av ve 88 20 20 ai 23 09 09 FA la 2 IA bl LY e DR UG 00 05 05 00 30 30 SO 31 No Ac 00 -0 -2 .0 PE 28 t ti 60 5- 1- 00 RS 62 Av ve 11 20 20 ai 73 09 09 FA la 1 IA bl LY e DR UG NM 00 04 05 00 30 30 SO 31 No Ac EM 04 -2 -0 .0 PE 16 t ti AR 61 0- 7- 00 RS 41 Av ve IN 10 20 20 ai 28 09 09 FA la 0. 1 IA bl 62 LY e [address] UG TA BL ET 00 04 05 00 40 10 SO 31 No Ac 60 -2 -0 .0 PE 19 t ti 33 3- 7- 00 RS 17 Av ve 88 20 20 ai 23 09 09 FA la 2 IA bl LY e DR UG 00 08 [...] 60 09 09 FA la IN 1 IA bl E LY e HC L DR 10 UG MG TA B 68 03 04 00 25 7 SO 30 No Ac 46 -2 -0 .0 PE 95 t ti 20 6- 9- 00 RS 68 Av ve 14 20 20 ai 64 09 09 FA la 5 IA bl LY e DR UG 00 03 04 00 30 30 SO 30 No Ac 40 -2 -0 .0 PE 95 t ti 62 6- 9- 00 RS 67 Av ve 09 20 20 ai 80 09 09 FA la 5 IA bl LY e DR UG NM 64 01 04 02 30 30 SO 30 No Ac EV 76 -1 -0 .0 PE 35 t ti AC 40 5- 9- 00 RS 42 Av ve ID 04 20 20 ai 61 [address] 3 IA bl LY e 30 DR MG UG CA PS UL E NM 00 02 04 02 6. 15 SO 30 No Ac OV 08 -0 -0 70 PE 47 t ti EN 51 3- 9- 0 RS 46 Av ve TI 13 20 20 ai L 20 09 09 FA la HF 1 IA bl A LY e 90 DR CAMPBELL UG G IN PEREZ LE R AZ 64 03 03 00 6. 5 SO 30 No Ac IT 67 -1 -2 00 PE 82 t ti HR 90 3- 6- 0 RS 61 Av ve OM 96 20 20 ai YC 10 09 09 FA la IN 4 IA bl LY e [address] MG UG TA BL ET GE 00 03 03 00 60 30 SO 30 No Ac MF 09 -1 -2 .0 PE 84 t ti IB 30 6- 6- 00 RS 83 Av ve RO 67 20 20 ai ZI 00 09 09 FA la L 5 IA bl 60 LY e [address] UG TA BL ET PE 00 03 03 00 90 30 SO 30 No Ac NT 09 -1 -2 .0 PE 82 t ti OX 35 3- 6- 00 RS 62 Av ve IF 11 20 20 ai YL 60 09 09 FA la LI 5 IA bl NE LY e ER UG 40 [...] ai 31 09 09 FA la 4 IA bl LY e DR UG AD 00 02 03 01 60 30 SO 30 No Ac VA 17 -0 -1 .0 PE 47 t ti IR 30 3- 2- 00 RS 47 Av ve 69 20 20 ai 25 60 09 09 FA la 0- 0 IA bl [address] CHRISTY SHER US NM 00 02 03 01 6. 15 SO 30 No Ac OV 08 -0 -1 70 PE 47 t ti EN 51 3- 2- 0 RS 46 Av ve TI 13 20 20 ai L 20 09 09 FA la HF 1 IA bl A LY e 90 DR GARCIA IN LE R NM 64 01 02 01 30 30 SO 30 No Ac EV 76 -1 -2 .0 PE 35 t ti AC 40 5- 6- 00 RS 42 Av ve ID 04 20 20 ai 61 [address] 3 IA bl LY e 30 DR MG UG [...] NA 57 09 09 FA TA 0 IA LI LY E E UG 00 02 02 00 51 13 SO 30 PEREZ Ac 09 -1 -2 .0 PE 61 RV ti 50 9- 6- 00 RS 28 EY ve 08 20 20 65 09 09 FA RODOLFO [address] UG NM 00 02 02 00 30 30 SO 30 No Ac EM 04 -1 -2 .0 PE 61 t ti AR 61 9- 6- 00 RS 29 Av ve IN 10 20 20 ai 48 09 09 FA la 1. 1 IA bl [address] NIKKY TA BL ET CI 55 02 02 00 10 10 SO 30 No Ac NM 11 -0 -1 .0 PE 50 t ti OF 10 5- 2- 00 RS 21 Av ve LO 12 20 20 ai XA 70 09 09 FA la CI 1 IA bl N LY e HC L 50 UG 0 MG TA B AD 00 02 02 00 60 30 SO 30 No Ac VA 17 -0 -1 .0 PE 47 t ti IR 30 3- 2- 00 RS 47 Av ve 69 20 20 ai 25 60 09 09 FA la 0- 0 IA bl [address] CHRISTY SHER US NM 00 02 02 00 6. 15 SO 30 No Ac OV 08 -0 -1 70 PE 47 t ti EN 51 3- 2- 0 RS 46 Av ve TI 13 20 20 ai L 20 09 09 FA la HF 1 IA bl A LY e 90 DR MC UG G IN PEREZ LE R AZ 64 02 02 00 6. 5 SO 30 No Ac IT 67 -0 -1 00 PE 50 t ti HR 90 5- 2- 0 RS 22 Av ve OM 96 20 20 ai YC 10 09 09 FA la IN 5 IA bl LY e [address] MG UG TA BL ET 00 02 02 00 21 6 SO 30 No Ac 55 -0 -1 .0 PE 49 t ti 50 5- 2- 00 RS 74 Av ve 30 20 20 ai 13 09 09 FA la 8 IA bl LY e DR UG 00 02 02 00 14 15 SO 30 No Ac 59 -0 -1 .6 PE 47 t ti 70 3- 2- 99 RS 45 Av ve 01 20 20 ai 31 09 09 FA la 4 IA bl LY e DR UG SE 31 12 01 01 8. 30 SO 30 No Ac RT 72 -1 -3 00 PE 11 t ti RA 20 5- 0- 0 RS 12 Av ve LI 21 20 20 ai NE 40 08 09 FA la 5 IA bl HC LY e L 10 DR 0 UG MG TA BL ET 59 01 01 00 7. 20 SO 30 No Ac 31 -1 -3 29 PE 35 t ti 00 5- 0- 9 RS 45 Av ve 17 20 20 ai 78 09 09 FA la 0 IA bl LY e DR UG NM 00 01 01 00 30 30 SO 27 No Ac EM 04 -1 -3 .0 PE 32 t ti AR 61 7- 0- 00 RS 20 Av ve IN 10 20 20 ai 49 08 09 FA la 1. 1 IA bl [address] UG TA BL ET 00 01 01 00 30 30 SO 30 No Ac 30 -1 -3 .0 PE 35 t ti 03 5- 0- 00 RS 42 Av ve 04 20 20 ai 61 09 09 FA la 3 IA bl LY e DR UG NA 68 12 01 01 60 30 SO 30 No Ac NM 46 -0 -3 .0 PE 01 t ti OX 20 4- 0- 00 RS 54 Av ve EN 19 20 20 ai 00 08 09 FA la 50 5 IA bl [address] TA UG BL ET ME 00 01 01 00 30 10 SO 30 No Ac TH 14 -1 -3 .0 PE 35 t ti OC 31 5- 0- 00 RS 41 Av ve AR 29 20 20 ai BA 00 09 09 FA la MO 1 IA bl L LY e [address] MG UG TA BL ET 00 01 01 00 12 30 SO 30 No Ac 60 -1 -3 0. PE 35 t ti 35 5- 0- 00 RS 43 Av ve 46 20 20 0 ai 83 09 09 FA la 2 IA bl LY e DR UG 00 12 01 00 47 11 SO 30 No Ac 12 -3 -1 3. PE 21 t ti 10 0- 5- 00 RS 34 Av ve 63 20 20 0 ai 81 08 09 FA la 6 IA bl LY e DR UG 63 12 01 00 60 30 SO 30 No Ac 82 -3 -1 .0 PE 21 t ti 40 0- 5- 00 RS 33 Av ve 00 20 20 ai 81 08 09 FA la 0 IA bl LY e DR UG 00 08 [...] RAUL 61 08 09 FA IS 3 IA R LY DR UG CL 00 12 01 00 40 20 SO 30 No Ac ON 60 -1 -0 .0 PE 11 t ti AZ 32 5- 1- 00 RS 11 Av ve EP 94 20 20 ai AM 83 08 09 FA la 2 IA bl 0. LY e [address] UG TA BL ET SE 31 12 01 00 8. 30 SO 30 No Ac RT 72 -1 -0 00 PE 11 t ti RA 20 5- 1- 0 RS 12 Av ve LI 21 20 20 ai NE 40 08 09 FA la 5 IA bl HC LY e L 10 DR 0 UG MG TA BL ET NA 68 12 12 00 60 30 SO 30 RI Ac NM 46 -0 -1 .0 PE 01 NA ti OX 20 4- 8- 00 RS 54 LD ve EN 19 20 20 IN 00 08 08 FA I 50 5 IA AN 0 LY A MG M TA UG BL ET NM 00 08 12 03 6. 15 SO 29 RI Ac OV 08 -2 -1 70 PE 14 NA ti EN 51 2- 8- 0 RS 36 LD ve TI 13 20 20 IN L 20 08 08 FA I HF 1 IA AN A LY A 90 M MC UG G IN PEREZ LE R AZ 64 12 12 00 6. 5 SO 30 RI Ac IT 67 -0 -1 00 PE 01 NA ti HR 90 4- 8- 0 RS 53 LD ve OM 96 20 20 IN YC 10 08 08 FA I IN 4 IA AN LY A [address] MG UG TA BL ET 00 08 12 03 14 15 SO 29 RI Ac 59 -2 -1 .6 PE 14 NA ti 70 2- 8- 99 RS 37 LD ve 01 20 20 IN 31 08 08 FA I 4 IA AN LY A M DR UG NM 00 01 12 07 30 30 SO 27 RI Ac EM 04 -1 -1 .0 PE 32 NA ti AR 61 7- 8- 00 RS 21 LD ve IN 10 20 20 IN 49 08 08 FA I 1. 1 IA AN [address] L[address] UG TA BL ET 52 11 12 00 1. 1 SO 29 PE Ac 26 -2 -0 00 PE 94 NA ti 80 6- 4- 0 RS 26 ve 52 20 20 RAUL 10 08 08 FA IS [address] UG AD 00 06 11 03 60 30 SO 28 RI Ac VA 17 -2 -2 .0 PE 68 NA ti IR 30 0- 0- 00 RS 68 LD ve 69 20 20 IN 25 60 08 08 FA I 0- 0 IA AN [address] LY [address] SK UG US ME 00 11 11 00 15 5 SO 29 RI Ac TH 14 -0 -2 .0 PE 75 NA ti OC 31 6- 0- 00 RS 90 LD ve AR 29 20 20 IN BA 00 08 08 FA I MO 1 IA AN L LY A [address] MG UG TA BL ET 00 08 11 02 30 30 SO 29 PE Ac 30 -1 -2 .0 PE 04 NA ti 03 1- 0- 00 RS 83 ve 04 20 20 RAUL 61 08 08 FA IS [address] UG 00 08 11 02 14 15 SO 29 RI Ac 59 -2 -2 .6 PE 14 NA ti 70 2- 0- 99 RS 37 LD ve 01 20 20 IN 31 08 08 FA I 4 IA AN LY A M DR UG NM 00 08 11 02 6. 15 SO 29 RI Ac OV 08 -2 -2 70 PE 14 NA ti EN 51 2- 0- 0 RS 36 LD ve TI 13 20 20 IN L 20 08 08 FA I HF 1 IA AN A LY A [address] [...] 50 08 08 FA la E 1 IA bl [address] UG TA BL ET MARKS 00 10 10 00 20 10 SO 29 RI Ac LF 60 -0 -2 .0 PE 52 NA ti AM 35 9- 3- 00 RS 93 LD ve ET 78 20 20 IN HO 12 08 08 FA I XA 8 IA AN ZO LY A LE M -T DR TITUS UG DS TA BL ET NM 00 01 10 06 30 30 SO 27 RI Ac EM 04 -1 -2 .0 PE 32 NA ti AR 61 7- 3- 00 RS 21 LD ve IN 10 20 20 IN 49 08 08 FA I 1. 1 IA AN [address] L[address] SHER TA BL ET AD 00 06 10 02 60 30 SO 28 RI Ac VA 17 -2 -0 .0 PE 68 NA ti IR 30 0- 9- 00 RS 68 LD ve 69 20 20 IN 25 60 08 08 FA I 0- 0 IA AN [address] L[address] HARRISON UG US NM 10 09 10 00 20 5 SO 29 No Ac OM 70 -2 -0 .0 PE 39 t ti ET 20 2- 9- 00 RS 22 Av ve PEREZ 00 20 20 ai ZI 31 08 08 FA la NE 0 IA bl LY e 25 DR VENCES UG TA BL ET 65 09 10 00 56 14 SO 29 No Ac 48 -2 -0 .0 PE 39 t ti 30 2- 9- 00 RS 23 Av ve 49 20 20 ai 51 08 08 FA la 4 IA bl LY e UG 00 08 10 01 30 30 SO 29 No Ac 30 -1 -0 .0 PE 04 t ti 03 1- 9- 00 RS 83 Av ve 04 20 20 ai 61 08 08 FA la 3 IA bl LY e DR UG TR 65 09 09 00 90 23 SO 29 No Ac AM 16 -1 -2 .0 PE 32 t ti AD 20 5- 6- 00 RS 91 Av ve OL 62 20 20 ai 71 08 08 FA la HC 1 IA bl L LY e 50 DR VENCES UG TA BL ET NM 00 08 09 01 6. 15 SO 29 No Ac OV 08 -2 -2 70 PE 14 t ti EN 51 2- 6- 0 RS 36 Av ve TI 13 20 20 ai L 20 08 08 FA la HF 1 IA bl A LY e 90 DR CAMPBELL UG G IN PEREZ LE R GE 00 04 09 03 60 30 SO 28 No Ac MF 09 -0 -2 .0 PE 10 t ti IB 30 8- 6- 00 RS 90 Av ve RO 67 20 20 ai ZI 00 08 08 FA la L 5 IA bl 60 LY e [address] UG TA BL ET 00 08 09 01 14 15 SO 29 No Ac 59 -2 -2 .6 PE 14 t ti 70 2- 6- 99 RS 37 Av ve 01 20 20 ai 31 08 08 FA la 4 IA bl LY e DR UG TR 50 09 09 00 30 30 SO 29 No Ac AZ 11 -1 -2 .0 PE 32 t ti OD 10 5- 6- 00 RS 90 Av ve ON 43 20 20 ai E 30 08 08 FA la 50 3 IA bl LY e MG DR TIFFANY UG BL ET 49 08 09 00 30 10 SO 29 No Ac 88 -2 -1 .0 PE 18 t ti 40 8- 1- 00 RS 87 Av ve 77 20 20 ai 80 08 08 FA la 5 IA bl LY e DR UG NM 00 01 09 05 30 30 SO 27 No Ac EM 04 -1 -1 .0 PE 32 t ti AR 61 7- 1- 00 RS 21 Av ve IN 10 20 20 ai 49 08 08 FA la 1. 1 IA bl [address] UG TA BL ET NM 00 08 08 00 6. 15 SO 29 No Ac OV 08 -2 -2 70 PE 14 t ti EN 51 2- 8- 0 RS 36 Av ve TI 13 20 20 ai L 20 08 08 FA la HF 1 IA bl A LY e 90 DR MC UG G IN PEREZ LE R 00 08 08 00 36 30 YO 16 No Ac 18 -2 -2 0. UR 66 t ti 57 2- 8- 00 2 Av ve 32 20 20 0 PH ai 26 08 08 AR la 0 MA bl CY e NM 37 03 08 04 28 28 SO 28 No Ac IL 00 -2 -2 .0 PE 02 t ti OS 00 7- 8- 00 RS 87 Av ve EC 35 20 20 ai 90 08 08 FA la OT 7 IA bl C LY e [address] UG MG TA BL ET 00 08 08 00 14 15 SO 29 No Ac 59 -2 -2 .6 PE 14 t ti 70 2- 8- 99 RS 37 Av ve 01 20 20 ai 31 08 08 FA la 4 IA bl LY e DR UG 00 08 08 00 30 30 SO 29 No Ac 30 -1 -2 .0 PE 04 t ti 03 1- 8- 00 RS 83 Av ve 04 20 20 ai 61 08 08 FA la 3 IA bl LY e DR UG 00 06 08 02 14 15 SO 28 No Ac 59 -0 -1 .6 PE 56 t ti 70 3- 4- 99 RS 61 Av ve 01 20 20 ai 31 08 08 FA la 4 IA bl LY e DR UG NM 00 06 08 02 6. 15 SO 28 No Ac OV 08 -0 -1 70 PE 56 t ti EN 51 3- 4- 0 RS 62 Av ve TI 13 20 20 ai L 20 08 08 FA la HF 1 IA bl A LY e 90 DR CAMPBELL UG G IN PEREZ LE R AD 00 06 08 01 60 30 SO 28 No Ac VA 17 -2 -1 .0 PE 68 t ti IR 30 0- 4- 00 RS 68 Av ve 69 20 20 ai 25 60 08 08 FA la 0- 0 IA bl [address] HARRISON UG US GE 00 04 07 02 60 30 SO 28 No Ac MF 09 -0 -1 .0 PE 10 t ti IB 30 8- 7- 00 RS 90 Av ve RO 67 20 20 ai ZI 00 08 08 FA la L 5 IA bl 60 LY e [address] UG TA BL ET NM 37 03 07 03 28 28 SO 28 No Ac IL 00 -2 -1 .0 PE 02 t ti OS 00 7- 7- 00 RS 87 Av ve EC 35 20 20 ai 90 08 08 FA la OT 7 IA bl C LY e [address] UG MG TA BL ET MARKS 00 07 07 00 12 30 SO 28 No Ac CR 59 -1 -1 0. PE 83 t ti AL 10 7- RS 73 Av ve FA 78 20 20 0 ai TE 00 08 08 FA la 1 5 IA bl LY e GM DR TA UG BL ET NM 00 01 07 04 30 30 SO 27 No Ac EM 04 -1 -1 .0 PE 32 t ti AR 61 7- 7- 00 RS 21 Av ve IN 10 20 20 ai 49 08 08 FA la 1. 1 IA bl [address] UG TA BL ET PE 45 07 07 00 60 30 SO 28 No Ac RM 80 -1 -1 .0 PE 83 t ti ET 20 1- 7- 00 RS 74 Av ve HR 26 20 20 ai IN 93 08 08 FA la 7 IA bl 5% LY e CR EA UG M NM 00 06 07 01 6. 15 SO 28 No Ac OV 08 -0 -0 70 PE 56 t ti EN 51 3- 3- 0 RS 62 Av ve TI 13 20 20 ai L 20 08 08 FA la HF 1 IA bl A LY e 90 DR VOGEL G IN PEREZ LE R 00 06 07 00 21 6 SO 28 No Ac 55 -2 -0 .0 PE 68 t ti 50 0- 3- 00 RS 67 Av ve 30 20 20 ai 13 08 08 FA la 8 IA bl LY e DR SHER 00 06 07 01 14 15 SO 28 No Ac 59 -0 -0 .6 PE 56 t ti 70 3- 3- 99 RS 61 Av ve 01 20 20 ai 31 08 08 FA la 4 IA bl LY e DR SHER AZ 00 06 07 00 6. 5 SO 28 No Ac IT 78 -2 -0 00 PE 68 t ti HR 11 0- 3- 0 RS 66 Av ve OM 49 20 20 ai YC 66 08 08 FA la IN 8 IA bl LY e [address] VENCES UG TA BL ET AD 00 06 07 00 60 30 SO 28 No Ac VA 17 -2 -0 .0 PE 68 t ti IR 30 0- 3- 00 RS 68 Av ve 69 20 20 ai 25 60 08 08 FA la 0- 0 IA bl [address] CHRISTY SHER US NM 37 03 06 02 28 28 SO 28 No Ac IL 00 -2 -1 .0 PE 02 t ti OS 00 7- 2- 00 RS 87 Av ve EC 35 20 20 ai 90 08 08 FA la OT 7 IA bl C LY e [address] SHER MG TA BL ET 00 06 06 00 14 15 SO 28 No Ac 59 -0 -1 .6 PE 56 t ti 70 3- 2- 99 RS 61 Av ve 01 20 20 ai 31 08 08 FA la 4 IA bl LY e DR SHER NM 00 06 06 00 6. 15 SO 28 No Ac OV 08 -0 -1 70 PE 56 t ti EN 51 3- 2- 0 RS 62 Av ve TI 13 20 20 ai L 20 08 08 FA la HF 1 IA bl A LY e 90 DR VOGEL G IN PEREZ LE R 00 05 06 00 30 30 SO 28 No Ac 00 -2 -0 .0 PE 49 t ti 60 3- 5- 00 RS 01 Av ve 11 20 20 ai 73 08 08 FA la 1 IA bl LY e DR SHER 64 05 06 00 15 7 SO 28 No Ac 45 -2 -0 .0 PE 50 t ti 50 7- 5- 00 RS 75 Av ve 99 20 20 ai 39 08 08 FA la 4 IA bl LY e DR UG LO 24 05 06 00 30 30 SO 28 No Ac RA 38 -2 -0 .0 PE 49 t ti TA 50 3- 5- 00 RS 00 Av ve DI 47 20 20 ai NE 17 08 08 FA la 8 IA bl [address] UG TA BL ET NM 00 01 06 03 30 30 SO 27 No Ac EM 04 -1 -0 .0 PE 32 t ti AR 61 7- 5- 00 RS 21 Av ve IN 10 20 20 ai 49 08 08 FA la 1. 1 IA bl [address] UG TA BL ET BE 68 05 06 00 28 7 SO 28 No Ac NZ 38 -2 -0 .0 PE 49 t ti ON 20 3- 5- 00 RS 02 Av ve AT 24 20 20 ai AT 80 08 08 FA la E 1 IA bl 20 LY e [address] UG CA PS UL E 00 05 06 00 6. 5 SO 28 No Ac 37 -2 -0 00 PE 48 t ti 81 3- 5- 0 RS 98 Av ve 53 20 20 ai 38 08 08 FA la 3 IA bl LY e DR UG GE 00 04 06 01 60 30 SO 28 No Ac MF 09 -0 -0 .0 PE 10 t ti IB 30 8- 5- 00 RS 90 Av ve RO 67 20 20 ai ZI 00 08 08 FA la L 5 IA bl 60 LY e [address] UG TA BL ET 00 05 05 00 14 15 SO 28 No Ac 59 -1 -2 .6 PE 38 t ti 70 2- 2- 99 RS 43 Av ve 01 20 20 ai 31 08 08 FA la 4 IA bl LY e DR UG NM 37 03 05 01 28 28 SO 28 No Ac IL 00 -2 -2 .0 PE 02 t ti OS 00 7- 2- 00 RS 87 Av ve EC 45 20 20 ai 50 08 08 FA la OT 3 IA bl C LY e [address] UG MG TA BL ET 58 04 05 01 30 30 SO 28 No Ac 17 -1 -2 .0 PE 12 t ti 70 0- 2- 00 RS 96 Av ve 30 20 20 ai 90 08 08 FA la 4 IA bl LY e DR UG NM 00 05 05 00 6. 15 SO 28 No Ac OV 08 -1 -2 70 PE 38 t ti EN 51 2- 2- 0 RS 42 Av ve TI 13 20 20 ai L 20 08 08 FA la HF 1 IA bl A LY e 90 DR MC UG G IN PEREZ LE R 58 04 05 00 10 10 SO 28 No Ac 17 -2 -0 .0 PE 22 t ti 70 2- 8- 00 RS 93 Av ve 30 20 20 ai 10 08 08 FA la 4 IA bl LY e DR UG 00 03 05 01 14 15 SO 28 No Ac 59 -2 -0 .6 PE 02 t ti 70 7- 8- 99 RS 61 Av ve 01 20 20 ai 31 08 08 FA la 4 IA bl LY e DR UG NM 00 03 05 01 6. 15 SO 28 No Ac OV 08 -2 -0 70 PE 02 t ti EN 51 7- 8- 0 RS 62 Av ve TI 13 20 20 ai L 20 08 08 FA la HF 1 IA bl A LY e 90 DR CAMPBELL UG G IN PEREZ LE R TR 65 04 05 00 40 10 SO 28 No Ac AM 16 -2 -0 .0 PE 22 t ti AD 20 2- 8- 00 RS 94 Av ve OL 62 20 20 ai 75 08 08 FA la HC 0 IA bl L LY e 50 DR MG UG TA BL ET AZ 00 04 04 00 6. 5 SO 28 No Ac IT 78 -0 -2 00 PE 10 t ti HR 11 8- 4- 0 RS 91 Av ve OM 49 20 20 ai YC 66 08 08 FA la IN 8 IA bl LY e [address] MG UG TA BL ET 63 04 04 00 40 5 SO 28 No Ac 82 -0 -2 .0 PE 10 t ti 40 8- 4- 00 RS 92 Av ve 00 20 20 ai 81 08 08 FA la 0 IA bl LY e DR UG 58 04 04 00 30 30 SO 28 No Ac 17 -1 -2 .0 PE 12 t ti 70 0- 4- 00 RS 96 Av ve 30 20 20 ai 90 08 08 FA la 4 IA bl LY e DR UG NM 00 01 04 02 30 30 SO 27 No Ac EM 04 -1 -2 .0 PE 32 t ti AR 61 7- 4- 00 RS 21 Av ve IN 10 20 20 ai 49 08 08 FA la 1. 1 IA bl [address] UG TA BL ET GE 00 04 04 00 60 30 SO 28 No Ac MF 09 -0 -2 .0 PE 10 t ti IB 30 8- 4- 00 RS 90 Av ve RO 67 20 20 ai ZI 00 08 08 FA la L 5 IA bl 60 LY e [address] UG TA BL ET TR 65 03 04 00 30 7 SO 27 No Ac AM 16 -2 -1 .0 PE 95 t ti AD 20 0- 7- 00 RS 32 Av ve OL 62 20 20 ai 75 08 08 FA la HC 0 IA bl L LY e 50 DR MG UG TA BL ET 00 03 04 00 30 30 SO 27 No Ac 09 -2 -1 .0 PE 95 t ti 35 0- 7- 00 RS 33 Av ve 50 20 20 ai 20 08 08 FA la 1 IA bl LY e DR UG 00 01 04 02 14 15 SO 27 No Ac 59 -3 -1 .6 PE 44 t ti 70 1- 7- 99 RS 57 Av ve 01 20 20 ai 31 08 08 FA la 4 IA bl LY e DR UG NM 00 01 04 02 6. 15 SO 27 No Ac OV 08 -3 -1 70 PE 44 t ti EN 51 1- 7- 0 RS 56 Av ve TI 13 20 20 ai L 20 08 08 FA la HF 1 IA bl A LY e 90 DR CAMPBELL UG G IN PEREZ LE R NM 37 03 04 00 28 28 SO 28 No Ac IL 00 -2 -1 .0 PE 02 t ti OS 00 7- 0- 00 RS 87 Av ve EC 45 20 20 ai 50 08 08 FA la OT 3 IA bl C LY e [address] UG MG TA BL ET NM 00 03 04 00 6. 15 SO 28 No Ac OV 08 -2 -1 70 PE 02 t ti EN 51 7- 0- 0 RS 62 Av ve TI 13 20 20 ai L 20 08 08 FA la HF 1 IA bl A LY e 90 DR CAMPBELL UG G IN PEREZ LE R 00 03 04 00 14 15 SO 28 No Ac 59 -2 -1 .6 PE 02 t ti 70 7- 0- 99 RS 61 Av ve 01 20 20 ai 31 08 08 FA la 4 IA bl LY e DR UG NM 37 01 03 01 28 28 SO 27 No Ac IL 00 -1 -2 .0 PE 26 t ti OS 00 4- 6- 00 RS 50 Av ve EC 45 20 20 ai 50 08 08 FA la OT 3 IA bl C LY e [address] UG MG TA BL ET 00 01 03 01 14 15 SO 27 No Ac 59 -3 -2 .6 PE 44 t ti 70 1- 6- 99 RS 57 Av ve 01 20 20 ai 31 08 08 FA la 4 IA bl LY e DR UG 00 01 03 00 14 15 SO 27 No Ac 59 -3 -2 .6 PE 44 t ti 70 1- 6- 99 RS 57 Av ve 01 20 20 ai 31 08 08 FA la 4 IA bl LY e DR UG NM 00 01 03 01 30 30 SO 27 No Ac EM 04 -1 -2 .0 PE 32 t ti AR 61 7- 6- 00 RS 21 Av ve IN 10 20 20 ai 49 08 08 FA la 1. 1 IA bl [address] UG TA BL ET NM 00 01 03 01 6. 15 SO 27 No Ac OV 08 -3 -2 70 PE 44 t ti EN 51 1- 6- 0 RS 56 Av ve TI 13 20 20 ai L 20 08 08 FA la HF 1 IA bl A LY e 90 DR MC UG G IN PEREZ LE R AZ 00 01 03 00 6. 5 SO 27 No Ac IT 78 -1 -2 00 PE 32 t ti HR 11 7- 5- 0 RS 19 Av ve OM 49 20 20 ai YC 66 08 08 FA la IN 8 IA bl LY e [address] MG UG TA BL ET NM 00 01 03 00 30 30 SO 27 No Ac EM 04 -1 -2 .0 PE 32 t ti AR 61 7- 5- 00 RS 21 Av ve IN 10 20 20 ai 49 08 08 FA la 1. 1 IA bl [address] UG TA BL ET NM 68 12 03 01 14 14 SO 27 No Ac OM 38 -1 -2 .0 PE 05 t ti ET 20 8- 5- 00 RS 16 Av ve PEREZ 04 20 20 ai ZI 11 07 08 FA la NE 0 IA bl LY e 25 DR MG UG TA BL ET NM 37 01 03 00 28 28 SO 27 No Ac IL 00 -1 -2 .0 PE 26 t ti OS 00 4- 5- 00 RS 50 Av ve EC 45 20 20 ai 50 08 08 FA la OT 3 IA bl C LY e [address] UG MG TA BL ET NM 00 10 03 03 6. 15 SO 26 No Ac OV 08 -2 -2 70 PE 59 t ti EN 51 9- 4- 0 RS 33 Av ve TI 13 20 20 ai L 20 07 08 FA la HF 1 IA bl A LY e 90 DR MC UG G IN PEREZ LE R 00 09 03 05 14 15 SO 26 No Ac 59 -1 -2 .6 PE 21 t ti 70 7- 4- 99 RS 28 Av ve 01 20 20 ai 31 07 08 FA la 4 IA bl LY e DR UG NM 00 11 03 01 30 30 SO 26 No Ac EM 04 -0 -2 .0 PE 67 t ti AR 61 7- 4- 00 RS 61 Av ve IN 10 20 20 ai 29 07 08 FA la 0. 1 IA bl 62 LY e [address] NIKKY ALLEN BL ET Procedures Procedure DOS Code Location Performer Comment NJX [address] [facility] DX/THER [facility] SBST INC INC INTRLMNR LMBR/SAC W/IMG GDN LIPID 31158 [facility] PANEL 7 [facility] INC INC COLLECTIO 53981 ABBIESTEVE LEIV[facility] N VENOUS 7 [facility] [place] [address] [facility] FREE 7 [facility] THYROXINE INC INC GENERAL 57096 [facility]IV[facility] HEALTH 7 [facility] PANEL INC INC CYANOCOBA 02696 ABBIESTEVE LEIVA KAILEY 7 [facility] VITAMIN INC INC B-[address] [place] [address] ABBIESTEVE LEIVA FOLIC 7 [facility] ACID INC INC SERUM GENERAL 89274 [facility]ALTH 7 [facility] PANEL INC INC RADEX 27981 [facility] FOOT 7 EMILY COMPLETE EMERGENCY MINIMUM 3 PHYS VIEWS DRUG TEST 50612 [facility] LE[facility] PRSMV 7 [facility] QUAL DIR INC INC OPTICAL OBS PER DAY DRUG TEST G0480 [facility] DEFINITV 7 [facility] DR ID INC INC METH P DAY 1-7 DRUG CL COMPREHEN 47052 [facility] SIVE 7 [facility] MET[facility]OLIC [facility] PANEL BLOOD 57630 [facility] COUNT 7 [facility] COMPLETE [facility] AUTO&AUTO DIFRNTL WBC LACTATE 63237 [facility] DEHYDROGE 7 [facility] NASE [facility] RADIOLOGI 10350 [facility] C EXAM 6 [facility] KNEE INC INC COMPLETE 4/MORE VIEWS DUP-SCAN 23165 AB[facility]E LE[facility] XTR VEINS 6 [facility] INC INC UNILATERA L/LIMITED STUDY DRUG TST G0477 [facility] LE[facility] PRESUMP;C 6 [facility] PBL BEING INC INC READ DC OPT OBV ONLY DRUG TEST G0481 ABBIE LEIVA DEFINITV [address] [address] [facility] [address] ID INC INC METH P DAY 8-14 DRUG CL RADIOLOGI 24674 [facility] C EXAM 6 EIDER GIOVANNA CHEST 2 RADIOLOGY VIEWS ASSOCIAT FRONTAL&L ATERAL NEUROPLAS 67071 [facility], TY 6 [facility] &/TRANSPO MEDICAL S MEDIAN G NRV CARPAL TUNNE TENDON 66683 [facility], SHEATH 6 [facility] INCISION MEDICAL G DRUG TST G0477 [facility] LEIV[facility] PRESUMP;C 6 [facility] PBL BEING INC INC READ DC OPT OBV ONLY ECG 97976 [facility] ROUTINE [address] [place] [address] W/LEAST 12 LDS TRCG ONLY W/O I&R COLLECTIO 67538 [facility] N VENOUS [address] [place] [address] VENIPUNCT URE COMPREHEN 64631 [facility] SIVE [address] [place] [address] PANEL BLOOD 29716 [facility] COUNT [address] [place] [address] AUTO&AUTO DIFRNTL WBC RADIOLOGI 22818 [facility] C EXAM [address] VIEWS FRONTAL&L ATERAL TB CELL 94300 [facility] 6 Y Y [facility] EXPRESS RESPNSE GAMMA INTERFERO N COLLECTIO 82409 [facility] VENOUS [address] [place] [address] VENIPUNCT URE NEEDLE 10162 [facility] EMG EA 6 ANALY EXTREMTY [facility] W/PARASPI PLLC NL AREA COMPLETE NERVE 61341 [facility] CONDUCTIO 6 ANALY N STUDIES [facility] 9-10 PLLC STUDIES COMPREHEN 97354 [facility] SIVE 6 [facility] PANEL BLOOD 67932 [facility] COUNT 6 [facility] COMPLETE [employer] [facility] AUTO&AUTO DIFRNTL WBC LACTATE 74370 [facility] DEHYDROGE 6 [facility]VA [facility] NASE [facility] WRIST L3908 [facility] 6 BRACING, BRACING, ORTHOSIS INC INC EXT CONTROL COCK-UP PREFAB RADIOLOGI 17568 [facility] EXAM 6 SABA CHEST 2 RADIOLOGY VIEWS [...] MEDICAL NEBULIZR EQUIPME EQUIPME NON-DISPB L COLLECTIO 83685 [facility] N VENOUS 6 Y Y BLOOD [facility] VENIPUNCT URE RADEX 72747 [facility] HAND 2 6 Y Y VIEWS [facility] SEDIMENTA 59266 [facility] TION RATE 6 Y Y RBC [facility] AUTOMATED BLOOD 15137 [facility] COUNT 6 Y Y COMPLETE [facility] AUTO&AUTO DIFRNTL WBC RADEX 26974 [facility] SHOULDER 6 Y Y COMPLETE [facility] MINIMUM 2 VIEWS RADEX 66304 [place] [facility] WRIST 2 6 MEDICAL NARESH VIEWS SERV FOUNDATIO N COMPREHEN 96845 [facility] MET[facility]OLIC [facility] PANEL DRUG TST G0477 ABBIE LEIVA PRESUMP;C 6 [facility] PBL BEING INC INC READ DC OPT OBV ONLY 25 42301 [facility] HYDROXY 6 [facility] INCLUDES [facility] HOLDINGS FRACTIONS IF PERFORMED BLOOD 19003 [facility] COUNT 6 [facility] COMPLETE [employer] AUTO&AUTO DIFRNTL WBC LACTATE 85824 [facility] DEHYDROGE 6 [facility] NASE [facility] COMPREHEN 81922 [facility] SHERI SIVE 6 [facility] METABOLIC HOLDINGS HOLDINGS [facility] 26656 [facility] DIS[facility]GE 6 EMILY LEE DAY PHYSICIAN FANNYALNABILA MANAGEMEN SERVI MAR T > 30 MIN INITIAL 41118 [facility] 6 EMILY LEE CARE/DAY PHYSICIAN DECALVO 30 SERVI MAR MINUTES DRUG TST G0477 [facility] LEIVA PRESUMP;C 6 [facility] PBL BEING INC INC READ DC OPT OBV ONLY DRUG TST G0477 ABBIE LEIVA PRESUMP;C 6 [facility] PBL BEING INC INC READ DC OPT OBV ONLY RADIOLOGI 08029 [facility] C EXAM 6 [place] CHEST 2 RADIOLOGY VIEWS ASSOCIAT FRONTAL&L ATERAL DRUG 70152 ABBIE LEIVA SCREENING 6 [facility] INC INC BENZODIAZ EPINES 1-12 DRUG TST G0477 ABBIE LEIVA PRESUMP;C 6 [facility] PBL BEING INC INC READ DC OPT OBV ONLY 3D 80152 ARLENE RUSHING RENDERING 6 REGIONAL GLE W/INTERP MEDICAL & HORACIO POSTPROCE SS SUPERVISI ON CT THORAX 52067 ARLENE MILLERMACK 6 REGIONAL GLE W/CONTRAS MEDICAL T HORACIO MATERIAL COMPREHEN 85047 [facility] SHERI SIVE 6 [facility] [employer] PANEL 25 99519 LAB [facility] HYDROXY 6 [facility] INCLUDES [employer] HOLDINGS FRACTIONS IF PERFORMED BLOOD 61081 [facility] COUNT 6 [facility] COMPLETE [employer] AUTO&AUTO DIFRNTL WBC LACTATE 61522 [facility] DEHYDROGE 6 MARVA MARVA NASE [facility] 3D 57930 [place] [facility] RENDERING 6 MEDICAL W/INTERP IMAGING & ASS POSTPROCE SS SUPERVISI ON MRI 49966 [place] WILL ALL SPINAL 6 MEDICAL CANAL IMAGING LUMBAR ASS W/O CONTRAST MATERIAL ECG 51133 [facility] ROUTINE 6 EMILY ECG EMERGENCY W/LEAST PHYS 12 LDS I&R ONLY DRUG TST G0477 AB[facility]E LEIVA PRESUMP;C 6 [facility] PBL BEING INC INC READ DC OPT OBV ONLY ECG 00170 AB[facility]E LEIVA ROUTINE 5 [facility] ECG INC INC W/LEAST 12 LDS TRCG ONLY W/O I&R ECHO 77337 [facility] LERMA GRE TTHRC R-T 5 MEDICAL 2D SERV W/WOM-MOD FOUNDATIO E COMPL N SPEC&COLR D INJECTION J1644 ABBIESTEVE LEIVA HEPARIN 5 [facility] SODIUM INC INC PER 1000 UNITS PROTHROMB 25329 ABBIE LEIVA IN TIME 5 [facility] INC INC CATHETER C1725 ABBIE LEIVA TRANSLUMI 5 [facility] NAL INC INC ANGIOPLAS TY NON-LASER GUIDE C1769 ABBIE LEIVA WIRE 5 [facility] INC INC BASIC 95540 ABBIESTEVE LEIVA METABOLIC 5 [facility] PANEL INC INC CALCIUM TOTAL THROMBOPL 22098 ABBIE LEIVA ASTIN 5 [facility] TIME INC INC PARTIAL PLASMA/WH OLE BLOOD CATH PLMT 37949 ABBIE LEIVA L HRT & 5 [facility] ARTS INC INC W/NJX & ANGIO IMG S&I INJECTION J2405 ABBIE LEIVA 5 [facility] ONDANSETR INC INC ON HCL PER 1 MG LOCM Q9967 ABBIE ABBIE [phone] [facility] MG/ML INC INC IODINE CONCENTRA TION PER ML BLOOD 26551 ABBIE LEIVA COUNT 5 [facility] COMPLETE INC INC AUTO&AUTO DIFRNTL WBC RADEX 21305 [place] BE[facility] SHOULDER 5 MEDICAL JOELLE COMPLETE IMAGING MINIMUM 2 ASS VIEWS RADIOLOGI 90690 [facility] C EXAM 5 EIDER GIOVANNA CHEST 2 RADIOLOGY VIEWS ASSOCIAT FRONTAL&L ATERAL BLOOD 20217 [facility] COUNT 5 [facility] COMPLETE [employer] AUTO&AUTO DIFRNTL WBC LACTATE 80880 [facility] SHERI DEHYDROGE 5 [facility] NASE [facility] COMPREHEN 66132 LAB [facility] LAB SHERI SIVE 5 [facility] METABOLIC [employer] PANEL 25 72883 LAB SHER[facility] LAB SHERI HYDROXY 5 [facility] INCLUDES [employer]INGS HOLDINGS FRACTIONS IF PERFORMED RADEX 27803 [facility] COLON 5 W/SPEC HI RADIOLOGY RADIOLOGY DNS ASSOCIAT ASSOCIAT BARIUM W/WO GLUCAGON INJECTION J2250 ARLENE JACOBS 5 CO CO MIDAZOLAM [facility] HCL PER 1 MG EGD 61562 ARLENE DIAZ TRANSORAL 5 CO HOSP LIAM BIOPSY SINGLE/MU LTIPLE RINGERS J7120 ARLENE JACOBS LACTATE 5 CO CO INFUSION [facility] UP TO 1000 CC COLONOSCO 55107 ARLENE DIAZ PY 5 CO HOSP LIAM W/BIOPSY SINGLE/MU LTIPLE CUL BACT 54688 ARLENE JACOBS AEROBIC 5 CO CO [facility] METHS DEFINITIV E EA ISOL INJECTION J3010 ARLENE JACOBS FENTANYL 5 CO [facility] 0.1 MG ANES 08288 ARLENE MEDRANO [facility] UPPER GI [address] [place] [address] [place] [address] ARLENE JACOBS SURG 5 CO CO [facility]&AIYANA ROSCOPIC EXAM INJECTION J2405 ARLENE JACOBS 5 CO [facility] ON HCL PER 1 MG RADIOLOGI 13195 [facility] C EXAM 5 EMILY CHEST 2 EMERGENCY VIEWS PHYS FRONTAL&L ATERAL ADMN SET A7005 YOUR YOUR W/SM VOL 5 PHARMACY PHARMACY [facility] NEBULIZR NON-DISPB L RADIOLOGI 75046 [facility] C EXAM 5 EMILY JAM CHEST 2 EMERGENCY VIEWS PHYS FRONTAL&L ATERAL ECG 94492 [facility] ROUTINE 5 EMILY JAM ECG EMERGENCY W/LEAST PHYS 12 LDS I&R ONLY INJECTION J1040 [facility] 5 PHYSICIAN AIYANA METHYLPRE S GROUP DNISOLONE ACETATE 80 MG INJECTION J0696 [facility] 5 PHYSICIAN AIYANA CEFTRIAXO S GROUP NE SODIUM PER 250 MG THERAPEUT 93422 [facility] 5 PHYSICIAN AIYANA PROPHYLAC S GROUP TIC/DX INJECTION SUBQ/[place] [address] ARLENE JACOBS TROPONIN 5 CO [facility] YVETTE BLOOD 74123 ARLENE JACOBS COUNT 5 CO [facility] AUTO&AUTO DIFRNTL WBC URNLS DIP 08102 ARLENE JACOBS 5 CO [facility]ICK[facility] HOSPITAL LET REAGENT AUTO MICROSCOP Y RADIOLOGI 07459 ARLENE JACOBS C EXAM 5 CO CO CHEST 2 HOSPITAL HOSPITAL VIEWS FRONTAL&L ATERAL COLLECTIO 47501 ARLENE JACOBS N VENOUS 5 CO NM BLOOD [facility] VENIPUNCT URE CREATINE 54600 ARLENE JACOBS KINASE MB 5 CO [facility] HOSPITAL ONLY COMPREHEN 39145 ARLENE JACOBS SIVE 5 CO NM METABOLIC [facility] PANEL UNCLASSIF J3490 ARLENE JACOBS IED DRUGS 5 CO [facility] CREATINE 55659 ARLENE JACOBS KINASE 5 [facility] THER 38109 ARLENE JACOBS PROPH/DX 5 CO NM NJX IV [facility] PUSH SINGLE/1S T SBST/DRUG ECG 59448 ARLENE JACOBS ROUTINE 5 CO NM ECG [facility] W/LEAST 12 LDS TRCG ONLY W/O I&R ECG 63701 [facility] ROUTINE 5 EMILY JAM ECG EMERGENCY W/LEAST PHYS 12 LDS I&R ONLY RADIOLOGI 23808 [facility] C 5 EMILY JAM EXAMINATI EMERGENCY ON CHEST PHYS SINGLE VIEW FRONTAL BLOOD 69322 ARLENE JACOBS COUNT 5 CO NM COMPLETE [facility] AUTO&AUTO DIFRNTL WBC RADIOLOGI 61716 ARLENE JACOBS C EXAM 5 CO CO CHEST 2 [facility] VIEWS FRONTAL&L ATERAL SEDIMENTA 23402 ARLENE JACOBS TION RATE 5 CO CO [facility] HOSPITAL NON-AUTOM ATED COMPREHEN 16893 ARLENE JACOBS SIVE 5 CO CO METABOLIC [facility] PANEL RADEX 42594 [place] [facility] WRIST 2 5 MEDICAL Y JUS VIEWS SERV FOUNDATIO N RADEX 69058 [place] [facility] SPINE 5 MEDICAL Y JUS LUMBOSACR SERV AL 2/3 FOUNDATIO VIEWS N RADIOLOGI 23677 [place] [facility] C 5 MEDICAL Y JUS EXAMINATI SERV ON KNEE FOUNDATIO 1/2 VIEWS N RADEX 50153 [place] EDNAGOMER HAND 2 5 MEDICAL Y JUS VIEWS SERV FOUNDATIO N RADIOLOGI 29555 [facility] C EXAM 5 MEDICAL AYA MAR CHEST 2 SERV VIEWS FOUNDATIO FRONTAL&L N ATERAL BLOOD 86147 [facility]ERI COUNT 4 [facility] COMPLETE [facility] HOLDINGS AUTO&AUTO DIFRNTL WBC BASIC 83537 LAB [facility] LAB SHERI METABOLIC 4 MAR[facility] PANEL HOLDINGS HOLDINGS CALCIUM TOTAL FLUORODEO A9552 ALMAZ KOO XYGLUCOSE [address] [facility] F-18 FDG CLINIC DX UP TO [address] [facility] [address] [facility] [place] [address] ARLENE MILLERMACK ABDOMEN & 4 REGIONAL GLE PELVIS MEDICAL W/O HORACIO CONTRAST MATERIAL CT THORAX 28279 ARLENE MILLERMACK W/O 4 REGIONAL GLE CONTRAST MEDICAL MATERIAL HORACIO RADEX 05914 [facility] SPINE 4 CO CO [facility] AL MINIMUM 4 VIEWS COMPREHEN 24404 LAB [facility] LAB SHERI SIVE 4 [facility]OLIC [facility] PANEL BLOOD 31726 LAB [facility]ERI COUNT 4 [facility] COMPLETE [employer] [facility] AUTO&AUTO DIFRNTL WBC IMMUNOASS 87680 [facility]ERI AY TUMOR 4 [facility] ANTIGEN HOLDINGS HOLDINGS QUANTITAT YVETTE CA 15-3 LACTATE 83672 LAB [facility] DEHYDROGE 4 [facility] NASE [facility]INGS 25 14287 LAB [facility]I HYDROXY 4 MARVA [facility]VA INCLUDES [facility]INGS HOLDINGS FRACTIONS IF PERFORMED LIPID 44319 [facility] PANEL 4 DIAGNOSTI DIAGNOSTI [facility] [place] [address] [facility] FREE 4 DIAGNOSTI DIAGNOSTI THYROXINE [facility] GENERAL 58475 [facility] 4 DIAGNOSTI DIAGNOSTI PANEL [facility] ADMN SET A7005 YOUR YOUR W/SM VOL 4 PHARMACY [facility]-DISPB L DRUG SCR G0434 GIOVANNY HAM GIOVANNY HAM NOT 4 CHROMATOG RAPHIC; ANY NUMBER PT ENC DRUG SCR G0434 GIOVANNY HAM GIOVANNY HAM NOT 4 CHROMATOG RAPHIC; ANY NUMBER PT ENC PRESSURIZ 16087 ARLENE JACOBS ED/NONPRE 4 CO CO SSURIZED [facility] INHALATIO N TREATMENT INJECTION J0744 ARLENE JACOBS 4 CO CO CIPROFLOX [facility] ACIN INTRAVENO US INFUS 200 MG INJECTION J2250 ARLENE JACOBS 4 CO CO MIDAZOLAM [facility] HCL PER 1 MG INJECTION J0330 ARLENE JACOBS 4 CO CO SUCCINYLC [facility] HOLINE CHLORIDE UP TO 20 MG INJECTION J2550 ARLENE JACOBS [facility] 50 MG INJECTION J2405 ARLENE JACOBS 4 [facility] PER 1 MG INJECTION J1170 ARLENE JACOBS 4 CO [facility] BARBI UP TO 4 MG RINGERS J7120 ARLENE JACOBS LACTATE 4 CO CO INFUSION [facility] UP TO 1000 CC INJECTION J1100 ARLENE JACOBS 4 CO CO DEXAMETHO [facility] SONE SODIUM PHOSPHATE 1 [place] L[place] 10964 ARLENE ANDRÉS ALFONZO ABD 4 [facility] L HERNIA REPAIR LAPS RPR 41487 ARLENE JACOBS INCISIONA 4 CO CO L HERNIA [facility] NCRC8/STR ANGULATED INFUSION J7050 ARLENE JACOBS NORMAL 4 CO CO SALINE [facility] SOLUTION 250 CC INJECTION J3010 ARLENE JACOBS FENTANYL 4 CO CO CITRATE [facility] 0.1 MG INJECTION J2710 JACOBSROB JACOBS 4 CO CO NEOSTIGMI [facility] NE METHYLSUL FATE UP TO 0.5 MG RADIOLOGI 97221 ARLENE JACOBS C EXAM 4 CO CO CHEST 2 [facility] VIEWS FRONTAL&L ATERAL ECG 73197 ARLENE JACOBS ROUTINE 4 CO CO ECG [facility] W/LEAST 12 LDS TRCG ONLY W/O I&R BLOOD 76758 ARLENE JACOBS COUNT 4 CO CO COMPLETE [facility] AUTO&AUTO DIFRNTL WBC URNLS DIP 97228 ARLENE JACOBS 4 CO CO STICK/TAB HOSPITAL HOSPITAL LET REAGENT AUTO MICROSCOP Y BASIC 42490 [facility] METABOLIC 4 CO [facility] CALCIUM TOTAL URINLS 09843 ARIANA DIAZ- DIP 4 [facility] STICK/TAB LET REAGNT NON-AUTO MICRSCPY THERAPEUT 37188 ARIANA ARIANA IC 4 CLINIC CLINIC PROPHYLAC TIC/DX INJECTION SUBQ/IM THERAPEUT 47832 KENYA KENYA IC 4 HEN HEN PROPHYLAC TIC/DX INJECTION SUBQ/IM THERAPEUT 39789 ARIANA ARIANA IC 4 CLINIC CLINIC PROPHYLAC TIC/DX INJECTION SUBQ/IM INJECTION J1030 [facility]ANA DIAZ- 4 [facility] METHYLPRE DNISOLONE ACETATE 40 MG THERAPEUT 75091 KENYA KENYA IC 4 HEN HEN PROPHYLAC TIC/DX INJECTION SUBQ/IM COMPUTER- 51313 ABBIE LEIVA AIDED 4 [facility] DETECTION INC INC SCREENING MAMMOGRAP HY SCREENING G0202 BEINEKE D BEINEKE D 4 MAMMOGRAP HY REID INCL CAD WHEN PERFORMD THERAPEUT 14462 ARIANA KENYA IC 4 CLINIC HEN PROPHYLAC TIC/DX INJECTION SUBQ/IM COMPREHEN 62390 [facility] SIVE 4 [facility] METAB[place] [address] [facility] FOLIC 4 [facility] ACID [facility] SERUM COLLECTIO 06909 [facility] OLIVASLE N VENOUS 4 [facility] BLOOD VENIPUNCT URE BLOOD 96204 [facility] COUNT 4 [facility] COMPLETE [facility] AUTOMATED IRON 79126 [facility] BINDING 4 [facility] CAPACITY [facility]INGS INJECTION J3420 ARIANA DIAZ- VIT B-12 [facility] CYANOCOBA KAILEY TO 1000 MCG THERAPEUT 39990 ARIANA DIAZ- IC [facility] PROPHYLAC TIC/DX INJECTION SUBQ/IM CYANOCOBA 48538 [facility] KAILEY 4 [facility] VITAMIN [facility] HOLDINGS B-12 25 01677 [facility] HYDROXY 4 [facility] INCLUDES HOLDINGS HOLDINGS FRACTIONS IF PERFORMED ORGANIC 26859 [facility] ACID 1 4 [facility] QUANTIT[place] [address] [facility] IRON 4 [facility]INGS HOLDINGS TB CELL 64791 [facility] MEDIATED 4 N N ANTIGN [facility] RESPNSE HOSPITA HOSPITA GAMMA INTERFERO N ANTIBODY 51558 [facility] BLASTOMYC 4 N N ES [facility] HOSPITA ANTIBODY 31106 [facility] COCCIDIOI 4 N N AMANDA [facility] HOSPITA ANTIBODY 23468 [facility] HISTOPLAS 4 N N MA [facility] HOSPITA COLLECTIO 34071 [facility] N VENOUS 4 N N BLOOD [facility] URE COLLECTIO 72971 ARLENE JACOBS N VENOUS 4 [facility] [place] [address] [facility] THYROID 4 [facility] NG HORMONE TSH CALCIUM 41218 [facility] TOTAL [facility] [place] [address] [facility] THYROXINE [facility] THORAX 89403 CISCO CISCO W/O 4 [place] [address] LABORATOR LABORATOR SURG 4 Y Y PATHOLOGY CORPORATI CORPORATI ON OF AM ON OF AM GROSS&AIYANA ROSCOPIC EXAM BLOOD 27913 [facility] COUNT 4 [facility] COMPLETE [facility] HOLDINGS AUTOMATED LIPID 61023 [facility] PANEL 4 [facility] HOLDINGS COLLECTIO 21774 ARIANA DIAZ- N VENOUS [facility] BLOOD VENIPUNCT URE CRYOTHERA 31869 ARIANA DIAZ- PY CO2 [facility] SLUSH LIQUID N2 ACNE COMPREHEN 27815 [facility] SIVE 4 [facility]OL[facility] HOLDINGS PANEL ECG 97340 BUSHRA CARRASQUILLO ROUTINE 4 MEDICAL NAN ECG SERV W/LEAST FOUNDATIO 12 LDS N I&R ONLY L[place] V [address]805 ANNMARIE ANNMARIE SURG 4 KARINA KARINA PATHOLOGY GROSS&[place] [address] ANNMARIE ANNMARIE SURG 4 KARINA KARINA PATHOLOGY GROSS&AIYANA ROSCOPIC EXAM PATH 47076 ANNMARIE ANGUIANO CONSLTJ 4 KARINA KARINA SURG 1ST BLK FROZEN SCTJ 1 SPEC BX/EXC 05993 KAYLYNN CHAIDEZ LYMPH 4 NHAN NHAN NODE OPEN DEEP CERVICAL NODE ANES 97703 MALONE AIYANA MALONE AIYANA ESOPH 4 THYRD LARYNX TRACH & LYMPH NECK 1YR TOTAL 27225 KAYLYNN CHAIDEZ THYROID 4 NHAN NHAN LOBEC UNI W/CONTRAL AT RUST LOBEC ADMN SET A7005 YOUR YOUR W/SM VOL 4 [facility] NE[facility]UL[facility] NON-DISPB L RADEX 91272 ARLENE JACOBS COLON 4 CO CO W/[facility] BARIUM W/WO GLUCAGON INJECTION J2250 ARLENE JACOBS 4 CO CO [facility]AZOLAM [facility] HCL PER 1 MG EGD 74406 [facility] TRANSORAL 4 LAR LAR BIOPSY SINGLE/MU LTIPLE CUL BACT 31743 ARLENE JACOBS AEROBIC 4 CO CO ADDL [facility] CENTER METHS DEFINITIV E EA ISOL ANES 49059 ARLENE JACOBS UPPER GI 4 CO CO ENDOSCOPY [facility] PROXIMAL TO DUODENUM INJECTION J3010 ARLENE JACOBS FENTANYL 4 CO CO CITRATE [facility] 0.1 [place] [address] ARLENE JACOBS SURG 4 CO CO PATHOLOGY [facility] GROSS&AIYANA ROSCOPIC EXAM RINGERS J7120 ARLENE JACOBS LACTATE 4 CO CO INFUSION [facility] UP TO [address] SOFT 90077 ZHANG ZHANG TISSUE 4 SABA SABA NECK W/CONTRAS T MATERIAL AMB A0427 ARLENE JACOBS SERVICE [address] [place] [address] ALS AMBULANCE AMBULANCE EMERGENCY TRANSPORT LEVEL 1 ECG 32191 SADEK MOH SADEK MOH ROUTINE 4 ECG W/LEAST 12 LDS I&R ONLY GROUND A0425 [facility] [address] [place] [address] VICENTE ZHANG ABDOMEN & 4 SABA SABA PELVIS W/O CONTRAST MATERIAL RADEX 57100 [facility], [facility], FOREARM [address] VIEWS GISSEL CHAUHAN CO HOS CO HOS CYANOCOBA 81339 LAB SHERI LAB SHERI KAILEY 4 OF MARVA VITAMIN [facility] HOLDINGS B-12 HOLDINGS BLOOD 26979 LAB [facility] LAB SHERI COUNT 4 OF [facility] COMPLETE [facility] HOLDINGS AUTOMATED HOLDINGS IRON 95495 LAB [facility] SHERI BINDING 4 OF [place] CAPAC[place] [address] LAB SHERI LAB SHERI IRON 4 OF [place] [address] LAB SHERI LAB SHERI FOLIC 4 OF MARVA ACID [facility] HOLDINGS SERUM HOLDINGS COLLECTIO 39127 ARIANA DIAZ-DONNELL N VENOUS 4 CLINIC SE [...] EQUIPME EQUIPME DEVC W/WO HEAD STRAP URINLS 72033 ARIANA DIAZ- DIP 4 CLINIC SE [place] STICK/TAB LET REAGNT NON-AUTO MICRSCPY COMPREHEN 13175 ARLENE JACOBS SIVE 4 CO CO [facility] PANEL BLOOD 71951 JACOBS JACOBS COUNT 4 CO CO [facility] AUTO&AUTO DIFRNTL WBC PRESSURIZ 49366 [facility] ED/NONPRE 4 CO CO SSURIZED [facility] INHALATIO N TREATMENT INJECTION J1170 [facility] 4 CO CO HYDROMORP [facility] BARBI UP TO 4 MG INJECTION J1885 [facility] 4 CO CO KETOROLAC [facility] TROMETHAM IN[place] [address] [place] [address] [facility] ABDOMEN & 4 SABA SABA PELVIS W/O CONTRST 1/> BODY RE CT THORAX 57825 [facility] W/O 4 N N CONTRAST COMMUNTIY COMMUNTIY MATERIAL HOSPITA HOSPITA BRNCDILAT 54564 [facility] RSPSE 4 N N SPMTRY COMMUNTIY COMMUNTIY PRE&POST- [place] [address] [facility] DIFFUSING 4 N N CAPACITY COMMUNTIY COMMUNTIY HOSPITA HOSPITA PLETHYSMO 22213 [facility] GRAPHY 4 N N LUNG COMMUNTIY COMMUNTIY VOLUMES HOSPITA HOSPITA W/WO AIRWAY RESIST ADMN SET A7003 YOUR YOUR SM VOL 4 PHARMACY PHARMACY NONFILTR LLC LLC PNEUMAT NEBULIZR DISPBL COMPRE 68517 MANDY GALVAN AUDIOMETR 4 LIAM LIAM Y THRESHOLD EVAL SP RECOGNIJ TYMPANOME 78915 MANDY GALVAN TRY 4 LIAM LIAM US SOFT 34781 [facility] UNIVERS TISSUE 4 Y Y [facility] NECK REAL TIME [facility] G0463 [facility] OUTPATI 4 Y Y T [facility]OSPITAL VISIT ASSESS & MGMT PT ADMN SET A7003 YOUR YOUR SM VOL 3 PHARMACY PHARMACY [facility] PNEUMAT NEBULIZR DISPBL LARYNGOSC 64186 MANDY GALVAN OPY 3 LIAM LIAM FLEXIBLE DIAGNOSTI C BLOOD 97489 [facility] COUNT 3 Y Y COMPLETE [facility] AUTO&AUTO DIFRNTL WBC SEDIMENTA 38519 [facility] TION RATE 3 Y Y RBC [facility] AUTOMATED COMPREHEN 25895 [facility] SIVE 3 Y Y METABOLIC [facility] [place] [address] [facility] THYROID 3 Y Y STIMULATI [facility] [place] [address] [facility] FREE 3 Y Y THYROXINE [facility] DRUG SCR G0434 GIOVANNY RICHARDSON NOT 3 CHROMATOG RAPHIC; ANY NUMBER PT ENC INJECTION J0696 ARIANA DIAZ- 3 CLINIC SE [place] CEFTRIAXO NE SODIUM PER [address] IC 3 CLINIC CLINIC PROPHYLAC TIC/DX INJECTION SUBQ/IM HOSPITAL 36683 [facility] DISCHARGE 3 IBR IBR DAY MANAGEMEN T 30 MIN/< RADIOLOGI 23966 VICENTE ZHANG C EXAM 3 SABA SABA CHEST 2 VIEWS FRONTAL&L ATERAL US SOFT 62601 VICENTE ZHANG TISSUE 3 SABA SABA HEAD & NECK REAL TIME IMGE DOCM SBSQ 01971 [facility] 3 IBR IBR CARE/DAY 25 MINUTES INITIAL 81486 [facility] 3 LEE LEE CARE/DAY DECALVO DECALVO 50 MAR MAR MINUTES RADIOLOGI 84740 VICENTE ZHANG C 3 SABA SABA EXAMINATI ON CHEST SINGLE VIEW FRONTAL LOCM Q9967 ST ST. 300-399 3 AGUILAR AGUILAR MG/ML IODINE PHYSICIAN PHYSICIAN CONCENTRA S MAY S MAY TION PER ML CT THORAX [address] 3 AGUILAR AGUILAR W/CONTRAS T PHYSICIAN PHYSICIAN MATERIAL S MAY S MAY RADIOLOGI 11436 ELSA HUNTER C EXAM 3 [facility] CHEST 2 VIEWS FRONTAL&L ATERAL RADIOLOGI 30747 JESSE AVELAR C EXAM 3 EMERGENCY MAR CHEST 2 SERVICES VIEWS FRONTAL&L ATERAL FILTER A7038 AMAYA CONDE DISPBL 3 HOME HOME USED MEDICAL MEDICAL W/POS EQUIPME EQUIPME ARWAY PRESSURE DEVICE CUSHN A7032 AMAYA CONDE NASAL 3 HOME HOME MASK MEDICAL MEDICAL INTERFACE EQUIPME EQUIPME REPLACEME NT ONLY EACH ADMN SET A7003 YOUR YOUR SM VOL 3 [facility] [place] [address] ARLENE BOWMAN KRISTEN LIPASE 3 CO HOSPITAL INJECTION J0500 ARLENE JACOBS 3 CO CO DICYCLOMI [facility] NE HCL UP TO 20 MG COMPREHEN 81401 ARLENE JACOBS SIVE 3 CO CO [facility] [place] [address] ARLENE JACOBS AMYLASE 3 CO [facility] INJECTION J2405 ARLENE JACOBS 3 CO [facility] ON H[place] [address] [place] [address] ELSA HUNTER ABDOMEN & 3 CALVIN CALVIN PELVIS W/CONTRAS T MATERIAL BLOOD 87029 ARLENE JACOBS COUNT 3 CO CO [facility] AUTO&AUTO DIFRNTL WBC URNLS DIP 04460 ARLENE JACOBS 3 CO CO STICK/TAB [facility] LET REAGENT AUTO MICROSCOP Y INFUSION J7050 ARLENE JACOBS NORMAL 3 CO NM SALINE [facility] SOLUTION 250 CC RADIOLOGI 83337 [facility] C EXAM 3 SABA SABA CHEST 2 VIEWS FRONTAL&L ATERAL BLOOD 44247 LAB SHERI LAB SHERI COUNT 3 [facility] HOLDINGS HOLDINGS AUTOMATED LIPID 43339 LAB SHERI LAB SHERI PANEL 3 MARVA [facility] HOLDINGS HOLDINGS HEMOGLOBI 15791 LAB SHERI LAB SHERI N 3 MARVA MARVA GLYCOSYLA HOLDINGS HOLDINGS KAMLA A1C SKIN TEST 24827 SHELLEY ROSA 3 LORRIE LORRIE TUBERCULO SIS INTRADERM AL COMPREHEN 00650 LAB SHERI LAB SHERI SIVE 3 MARVA MARVA METABOLIC HOLDINGS HOLDINGS PANEL ADMN SET A7003 YOUR YOUR SM VOL 3 [facility] [place] [address] ABBIE LEIVA LIPASE 3 MEM HOSP [facility]OS[facility] INC INC COMPREHEN 89606 ABBIE LEIVA SIVE 3 MEM H[facility] [place] [address] ABBIE LEIVA AMYLASE 3 MEM HOS[facility]OS[facility] INC INC BLOOD 71892 ABBIE LEIVA COUNT 3 MEM HOSP MEM HOSP COMPLETE INC INC AUTO&AUTO DIFRNTL WBC DRUG SCR G0434 GIOVANNY RICHARDSON NOT 3 CHROMATOG RAPHIC; ANY NUMBER PT ENC RADIOLOGI 20957 [employer] [facility] [employer] [employer] [facility], C EXAM [address] CHEST 2 GISSEL GISSEL VIEWS CO HOS CO HOS FRONTAL&L ATERAL DRUG SCR G0434 GIOVANNY RICHARDSON NOT 3 CHROMATOG RAPHIC; ANY NUMBER PT ENC CUSHN A7032 AMAYA AMAYA NASAL 3 HOME HOME MASK MEDICAL MEDICAL INTERFACE EQUIPME EQUIPME REPLACEME NT ONLY EACH FILTER A7038 AMAYA AMAYA DISPBL 3 HOME HOME USED MEDICAL MEDICAL W/POS EQUIPME EQUIPME ARWAY PRESSURE DEVICE COMPREHEN 70585 [employer] [employer], SIVE [address] METABOLIC GISSEL G[place]SEL [place] [address] [employer], AMYLASE [address] GISSEL GISSEL CO HOS CO HOS BLOOD 16412 [employer], COUNT [address] COMPLETE GISSEL GISSEL AUTO&AUTO [place] [address] [employer], LIPASE [address] GISSEL GISSEL CO HOS CO HOS ADMN SET A7003 YOUR YOUR SM VOL 3 [facility] PNEUMAT NEBULIZR DISPBL CYSTO 65729 [facility] BLADDER 3 [facility] W/URETERA HOSP HOSP L CATHETERI ZATION INJECTION J3010 [facility] FENTANYL 3 [facility] CITRATE [facility]P HOSP 0.1 MG CATHETER C1758 [facility] URETERAL 3 [facility] HOSP HOSP GLUC BLD 27585 [facility] GLUC MNTR 3 [facility] DEV HOSP HOSP CLEARED FDA SPEC HOME USE BLOOD 51762 [facility] COUNT 3 SIKH [facility] COMPLETE HOSP HOSP AUTOMATED PRESSURIZ 37383 [facility] ED/NONPRE 3 SIKH [facility] SSURIZED HOSP HOSP INHALATIO N TREATMENT ANES 30288 [facility] TRANSURET 3 HRAL W/URETHRO CYSTOSCOP Y NOS ECG 35950 ARTHUR ARTHUR ROUTINE 3 SOREN SOREN ECG W/LEAST 12 LDS I&R ONLY INJECTION J2405 [facility] 3 SIKH SIKH ONDANSETR HOSP HOSP ON HCL PER 1 MG LOCM Q9967 [facility] 300-399 3 SIKH SIKH MG/ML HOSP HOSP IODINE CONCENTRA TION PER ML X-RAY 37174 [facility] ADA URINARY 3 RADIOLOGY TRACT ASSOC EXAM WITH CONTRAST MATERIAL URNLS DIP 98386 MAHNAZ JOYA JR 3 SOREN SOREN STICK/TAB LET RGNT NON-AUTO W/O MICRSCP NELSON 68625 MAHNAZ JOYA JR POST-VOID 3 SOREN SOREN ING RESIDUAL URINE&/BL ADDER CAP DILAT 46039 MAHNAZ JOYA JR FEMALE 3 SOREN SOREN URETHRA W/SUPPOSI TORY&/INS TLJ INI ADMN SET A7003 YOUR YOUR SM VOL 3 PHARMACY PHARMACY NONFILTR [facility] PNEUMAT NEBULIZR DISPBL GLUC BLD 74952 ARIANA NIÑOON GLUC MNTR 3 CLINIC HEN DEV CLEARED FDA SPEC HOME USE SCREENING G0202 ABBIE LEIVA 3 MEM HOS[facility] MEM HOSP MAMMOGRAP INC INC [place] IN[place] [address] ABBIE LEIVA TRANSVAGI 3 MEM HOS[facility]OS[facility] NAL INC INC COMPUTER- 35472 ABBIE LEIVA AIDED 3 MEM HOS[facility] MEM HOSP DETECTION INC INC SCREENING MAMMOGRAP HY BLOOD 33143 [facility] OCCULT 3 KELLY KELLY PEROXIDAS E ACTV QUAL FECES 1-3 SPEC CULTURE 17528 [facility] CHLAMYDIA 3 KELLY KELLY ANY SOURCE URINLS 52454 [facility] DIP 3 KELLY KELLY STICK/TAB LET REAGNT NON-AUTO MICRSCPY IADNA 07860 [facility] NEISSERIA 3 KELLY KELLY GONORRHOE AE DIRECT PROBE TQ HEMOGLOBI 70515 LAB SH[facility]I LAB SHERI N 3 MARVA [facility] GLYCOSYLA HOLDINGS HOLDINGS KAMLA A1C COMPREHEN 53229 LAB SHERI LAB SHERI SIVE 3 MARVA [place] [address] DANIEL MAT DANIEL MAT ABDOMEN & 3 PELVIS W/CONTRAS T MATERIAL GROUND A0425 BELGIAN BELGIAN MILEAGE 3 AMBULETT AMBULETT PER & & STATUTE AMBULANC AMBULANC MILE AMB A0427 BELGIAN BELGIAN SERVICE 3 AMBULETT AMBULETT ALS & & [...] YOUR YOUR SM VOL 3 [facility] PNEUMAT NEBULIZR DISPBL SMR PRIM 20220 [facility] 3 [facility] GRAM/GIEM [facility] SA STAIN BCT FUNGI/SHUBHAM L SUSCEPTIB 30882 [facility] LTY STDY 3 [facility] IAL MICRO/AGA R DILUTJ CUL BACT 26577 [facility] XCPT 3 [facility] BLOOD/STO OL AEROBIC ISOL CUL BACT 77635 [facility] AEROBIC 3 [facility] METHS DEFINITIV E EA ISOL PRESSURIZ 34124 [facility] ED/NONPRE 3 [facility] TREATMENT RADIOLOGI 12195 DANIEL MAT DANIEL MAT C EXAM 3 CHEST 2 VIEWS FRONTAL&L ATERAL URNLS DIP [address] STICK/[facility] LET REAGENT AUTO MICROSCOP Y CPAP 30216 [facility] VENTILATI 3 [facility] ON CPAP [facility] INITIATIO N&MGMT PRESSURIZ 26748 [facility] ED/NONPRE 3 [facility] INHALATIO N TREATMENT COMPREHEN 12646 JESUS LEE SIVE 3 [facility] PANEL CREATINE 87803 JESUS LEE KINASE MB 3 [facility] G0378 JESUS [facility]EE OBSERVATI 3 [facility] SERVICE PER HOUR CULTURE 08461 JESUS LEE BACTERIAL 3 [facility] QUANTTATI VE COLONY COUNT URINE CREATINE 92993 JESUS L[facility] KINASE 3 [facility] FIBRIN 30276 JESUS L[facility] DGRADJ 3 [facility] D-DIMER QUANTITAT YVETTE ECG 44395 JESUS LEE ROUTINE 3 [facility] W/LEAST 12 LDS TRCG ONLY W/O I&R SBSQ 14706 YOSELIN YOSELIN OBSERVATI 3 NURY IGN NURY IGN ON CARE/DAY 15 [place] [address] JESUS LEE TROPONIN 3 [facility] YVETTE BLOOD 52605 JESUS LEE GASES ANY 3 [facility] COMBINATI ON PH PCO2 PO2 CO2 HCO3 BLOOD 29827 JESUS LEE COUNT 3 [facility] AUTOMATED CULTURE 69348 JESUS LEE BACTERIAL 3 [facility] AEROBIC W/ID ISOLATES ADMN SET A7003 YOUR YOUR SM VOL 3 PHARMACY PHARMACY NONFILTR [employer] PNEUMAT NEBULIZR DISPBL CUSHN A7032 AMAYA CONDE NASAL 3 HOME HOME MASK MEDICAL MEDICAL INTERFACE EQUIPME EQUIPME REPLACEME NT ONLY EACH FILTER A7038 AMAYA CONDE DISPBL 3 HOME HOME USED MEDICAL MEDICAL W/POS EQUIPME EQUIPME ARWAY PRESSURE DEVICE ADMN SET A7003 YOUR YOUR SM VOL 3 PHARMACY PHARMACY NONFILTR [employer] PNEUMAT NEBULIZR DISPBL 3D 40883 ABBIE LEIVA RENDERING 3 [facility] INC INC W/INTERP& [place] [address] TYRONE TYRONE ABDOMEN & 3 COURTNEY COURTNEY PELVIS W/CONTRAS T MATERIAL LOCM Q9967 ABBIE LEIVA 300-399 3 MEM HOS[facility] MEM HOSP MG/ML INC INC IODINE CONCENTRA TION PER ML US SOFT 20602 [facility] 3 Y Y HEAD & [facility] [place] [address] ABBIE LEIVA UREA 3 MEM HOSP MEM HOSP NITROGEN INC INC QUANTITAT YVETTE CREATININ 56874 ABBIE LEIVA E BLOOD 3 MEM HOSP MEM HOSP INC INC ADMN SET A7003 YOUR YOUR SM VOL 3 [facility] PNEUMAT NEBULIZR DISPBL MYOCARDIA 20444 [facility] SPECT 3 Y Y [facility] STUDIES CV STRS 79959 KELLOGG CORNELIO KELLOGG CORNELIO TST 3 XERS&/OR RX CONT ECG W/O I&R TECHNETIU A9500 [facility] TC-99M 3 Y Y [facility] DX PER STUDY DOSE CV STRS 34365 [facility] TST 3 Y Y XERS&/OR [facility] RX CONT ECG TRCG ONLY INJECTION J2785 [facility] 3 Y Y [facility] 0.1 MG CV STRS 12774 KELLOGG CORNELIO KELLOGG CORNELIO TST 3 XERS&/OR RX CONT ECG I&R ONLY RADIOLOGI 63216 [employer], [employer], C EXAM [address] CHEST 2 GISSEL CHAUHAN VIEWS CO HOS CO HOS FRONTAL&L ATERAL THERAPEUT 07395 CANDIDA TIRADO IC 3 Aug PROPHYLAC TIC/DX INJECTION SUBQ/IM INJECTION J0696 CANDIDA TIRADO 3 Aug CEFTRIAXO NE SODIUM PER 250 MG ECG 57986 KOREY VILLAO KOREY VILLAO ROUTINE 3 ECG W/LEAST 12 LDS I&R ONLY ECG 00614 CANDIDA TIRADO ROUTINE 3 Aug ECG W/LEAST [...] EQUIPME [place] [address] KARTHIK AIYANA KARTHIK AIYANA SURG 3 PATHOLOGY GROSS&AIYANA ROSCOPIC EXAM ANES 28145 COMMUNITY ARZATE SOREN LOWER 3 ANESTH INTESTINE OF THE BLUE ENDOSCOPY DISTAL DUODENUM SPCL STN 46863 KARTHIK AIYANA KARTHIK AIYANA 2 I&R 3 EXCPT MICROORG/ ENZYME/IM CYT COLSC FLX 24261 CAMARILLO MOIRA CAMARILLO MOIRA W/RMVL 3 OF TUMOR POLYP LESION SNARE TQ COLONOSCO 19168 CAMARILLO MOIRA CAMARILLO MOIRA PY 3 W/BIOPSY SINGLE/MU LTIPLE EGD 07318 CAMARILLO MOIRA CAMARILLO MOIRA TRANSORAL 3 BIOPSY SINGLE/MU LTIPLE RADEX 61567 [facility] HAND 3 SABA MINIMUM 3 RADIOLOGY VIEWS ASSOCIAT LARYNGOSC 45757 MANDY GALVAN OPY 3 LIAM WHEELER FLEXIBLE DIAGNOSTI C CONTINUOU E0601 AMAYA CONDE S 3 HOME HOME POSITIVE MEDICAL MEDICAL AIRWAY EQUIPME EQUIPME PRESSURE DEVICE CUSHN A7032 AMAYA CONDE NASAL 2 HOME HOME MASK MEDICAL MEDICAL INTERFACE EQUIPME EQUIPME REPLACEME NT ONLY EACH ADMN SET A7003 YOUR YOUR SM VOL 2 PHARMACY PHARMACY NONFILTR [facility] PNEUMAT NEBULIZR DISPBL FILTER A7013 YOUR YOUR DISPOSABL 2 PHARMACY PHARMACY [employer] W/AREOSOL COMPRESS/ US GENERATOR RADEX 51202 [facility] 2 Y Y [facility] FINE 85730 [facility] 2 Y Y [facility] N W/O IMAGING GUIDANCE CYTP EVAL 70842 [facility] 2 Y Y [facility] ASPIRATE INTERP & REPORT US SOFT 70877 ELIZABET ELIZABET TISSUE 2 YARON YARON HEAD & [place] [address] ELIZABET ELIZABET GUIDANCE 2 YARON YARON NEEDLE PLACEMENT IMG S&I FINE 46524 ELIZABET ELIZABET NEEDLE 2 YARON YARON ASPIRATIO N WITH IMAGING GUIDANCE LARYNGOSC 40401 MANDY MANDY OPY 2 LIAM WHEELER FLEXIBLE DIAGNOSTI C MICROSOMA 86696 [facility] L 2 Y Y ANTIBODIE [facility] S EACH COMPREHEN 36098 [facility] SIVE 2 Y Y METABOLIC [facility] [place] [address] [facility] THYROID 2 Y Y STIMULATI [facility] [place] [address] [facility] FREE 2 Y Y THYROXINE [facility] COLLECTIO 33175 [facility] CLUB VENOUS 2 Y Y BLOOD [facility] VENIPUNCT URE CONTINUOU E0601 AMAYA CONDE S 2 HOME HOME POSITIVE MEDICAL MEDICAL AIRWAY [place] [address] [facility] ABDOMEN & 2 Y JUS Y JUS PELVIS W/CONTRAS T MATERIAL AMBULANCE A0429 BELGIAN BELGIAN SERVICE 2 AMBULETT AMBULETT BLS & & EMERGENCY AMBULANC AMBULANC TRANSPORT GROUND A0425 BELGIAN BELGIAN MILEAGE 2 AMBULETT AMBULETT PER & & [place] [address] [facility], ABDOMEN & [address] PELVIS GISSEL CHAUHAN W/O CO HOS CO HOS CONTRST 1/> BODY RE BASIC 54449 [facility], METABOLIC [address] PANEL GISSEL CHAUHAN CALCIUM CO HOS CO HOS TOTAL BLOOD 27839 [facility], COUNT [address] COMPLETE GISSEL CHAUHAN AUTO&AUT[place] [address] [facility], [facility], INFUSION [address] HYDRATION GISSEL CHAUHAN EACH CO HOS CO HOS ADDITIONA L HOUR URNLS DIP 10969 [facility], [address] STICK/TAB GISSEL CHAUHAN LET RGNT CO HOS CO HOS AUTO W/O MICROSCOP Y ADMN SET A7003 YOUR YOUR SM VOL 2 PHARMACY PHARMACY NONFILTR [facility] PNEUMAT NEBULIZR DISPBL FILTER A7013 YOUR YOUR DISPOSABL [address] [facility] W/AREOSOL COMPRESS/ US GENERATOR CUSHN A7032 AMAYA CONDE NASAL 2 HOME HOME MASK MEDICAL MEDICAL INTERFACE EQUIPME EQUIPME REPLACEME NT ONLY EACH FILTER A7038 AMAYA AMAYA DISPBL 2 HOME HOME USED MEDICAL MEDICAL W/POS EQUIPME EQUIPME ARWAY PRESSURE DEVICE INJECTION A9576 [facility] 2 CO CO [facility] [place] [address] [facility] ANGIOGRAP 2 CO CO [facility] W/CONTRAS T/NONCONT RAST MRI BRAIN 44769 [facility] BRAIN 2 CO CO STEM W/O [facility] W/CONTRAS T MATERIAL COMPUTER- 11635 [facility] AIDED 2 Y Y DETECTION [facility] DX MAMMOGRAP HY DIAGNOSTI G0204 [facility] C 2 Y Y [facility] HY INCL CAD WHEN PERF; BILAT CONTINUOU E0601 AMAYA CONDE S 2 HOME HOME POSITIVE MEDICAL MEDICAL AIRWAY EQUIPME EQUIPME PRESSURE DEVICE COLLECTIO 92644 [facility] N VENOUS 2 N N BLOOD [facility] VENIPUNCT HOSPITA HOSPITA URE COMPREHEN 55706 [facility] SIVE 2 N N METABOLIC [facility] [place] [address] [facility] FREE 2 N N THYROXINE [facility] [place] [address] [facility] HENLY NAN THYROID 2 N STIMULATI [facility] HORMONE TSH BLOOD 27812 [facility] COUNT 2 N N COMPLETE [facility] AUTO&AUTO HOSPITA HOSPITA DIFRNTL WBC URNLS DIP 68527 [employer], [employer], [address] STICK/TAB GISSEL CHAUHAN LET CO HOS CO HOS REAGENT AUTO MICROSCOP Y DRUG SCR [id number] [employer], MHC INC, NOT [address] CHROMATOG GISSEL CHAUHAN RAPHIC; CO HOS CO HOS ANY NUMBER PT ENC US SOFT 409[address] [employer], [employer], TISSUE [address] HEAD & GISSEL CHAUHAN NECK REAL CO HOS CO HOS TIME IMGE DOCM DUPLEX [address] [facility] SCAN 2 SABA EXTRACRAN RADIOLOGY IAL ART ASSOCIAT COMPL BI [facility] [address] [facility] DISCHARGE 2 Aug DAY MANAGEMEN T 30 MIN/< SBSQ 85511 [facility] 2 Aug CARE/DAY 25 MINUTES RADEX ABD [address] [facility] 2 [place] ANTEROPOS RADIOLOGY T&ADDL ASSOCIAT OBLQ&CONE VIEWS INITIAL 25176 [facility] 2 Aug CARE/DAY 50 MINUTES RADIOLOGI [address]33 [facility] EXAM 2 [facility] CHEST 2 RADIOLOGY VIEWS ASSOCIAT FRONTAL&L ATERAL RADIOLOGI [address] [facility] C 2 [place] EXAMINATI RADIOLOGY ON SKULL ASSOCIAT 4/> [place] [address] [employer], [employer], HEAD/BRAI [address] N W/O GISSEL CHAUHAN CONTRAST CO HOS CO HOS MATERIAL CUSHN A7032 AMAYA AMAYA NASAL 2 HOME HOME MASK MEDICAL MEDICAL INTERFACE EQUIPME EQUIPME REPLACEME NT ONLY EACH CONTINUOU E0601 AMAYA AMAYA S 2 HOME HOME POSITIVE MEDICAL MEDICAL AIRWAY EQUIPME EQUIPME PRESSURE DEVICE ADMN SET [id number] YOUR YOUR SM VOL 2 [facility] PNEUM[facility] NEBULIZR DISPBL RADEX 23963 [employer], [employer], SMALL [address] INTESTINE GISSEL GISSEL CO HOS CO HOS W/MULTIPL E SERIAL IMAGES INJECTION J2550 [employer], [employer], [address] PROMETHAZ GISSEL CHAUHAN INE HCL CO HOS CO HOS UP TO 50 MG LIPID 99875 [employer], [employer], PANEL [address] GISSEL GISSEL CO HOS CO HOS IMMUNOFLU 59587 [employer], [employer], ORESCENT [address] STUDY EA GISSEL GISSEL ANTIBODY CO HOS CO HOS INDIR METHOD THERAPEUT 04888 [facility] [employer], [employer] [facility], IC [address] PROPHYLAC GISSEL GISSEL TIC/DX CO HOS CO HOS INJECTION SUBQ/[place] [address] [facility] [employer], [facility], LIPASE [address] GISSEL GISSEL CO HOS CO HOS PROTHROMB [address] [facility], [facility], IN TIME [address] GISSEL GISSEL CO HOS CO HOS GENERAL [address] [facility], [facility], HEALTH [address] PANEL GISSEL GISSEL CO HOS CO HOS INJECTION J1885 [facility] [employer], [facility], [address] KETOROLAC GISSEL GISSEL CO HOS CO HOS TROMETHAM INE PER 15 MG CONTINUOU E0601 AMAYA CONDE S 2 HOME HOME POSITIVE MEDICAL MEDICAL AIRWAY EQUIPME EQUIPME PRESSURE DEVICE INJECTION J1885 [facility] 2 Aug KETOROLAC TROMETHAM INE PER 15 MG THERAPEUT 29382 [facility] IC 2 Aug PROPHYLAC TIC/DX INJECTION SUBQ/[place] [address] [facility] [place] DANIEL MAT ABDOMEN & 2 RADIOLOGY PELVIS W/O CONTRAST MATERIAL ADMN SET [id number] YOUR YOUR SM VOL 2 PHARMACY PHARMACY [facility] [place] [address] [facility] [employer], [employer], ABDOMEN & [address] PELVIS GISSEL GISSEL W/O CO HOS CO HOS CONTRST 1/> BODY RE LOCM Q9967 [facility] [employer], [employer], [phone] MG/ML GISSEL GISSEL IODINE CO HOS CO HOS CONCENTRA TION PER ML COMPREHEN 83953 [facility] [employer], [employer], SIVE [address] METABOLIC GISSEL GISSEL PANEL CO HOS CO HOS CARCINOEM 19690 [facility] [employer], [employer] [facility], BRYONIC [address] ANTIGEN GISSEL GISSEL CEA CO HOS CO HOS BILIRUBIN 19828 [facility] [employer], [employer], DIRECT [address] GISSEL GISSEL CO HOS CO HOS LACTATE 29310 [facility] INC, [facility] INC, DEHYDROGE [address] NASE LDH GISSEL CHAUHAN CO HOS CO HOS BLOOD 61443 [facility], [facility] INC, COUNT [address] COMPLETE GISSEL GUZMANOLAS AUTO&AUTO CO HOS CO HOS DIFRNTL WBC CUSHN A7032 AMAYA AMAYA NASAL 2 HOME HOME MASK MEDICAL MEDICAL INTERFACE EQUIPME EQUIPME REPLACEME NT ONLY EACH URNLS DIP 88724 CANDIDA WEIN 2 Aug STICK/TAB LET RGNT NON-AUTO W/O MICRSCP CONTINUOU E0601 AMAYA AMAYA S 2 HOME HOME POSITIVE MEDICAL MEDICAL AIRWAY EQUIPME EQUIPME PRESSURE DEVICE ADMN SET A7003 YOUR YOUR SM VOL [address] [facility] PNEUMAT NEBULIZR DISPBL CONTINUOU E0601 AMAYA [...] MEDICAL AIRWAY EQUIPME EQUIPME PRESSURE DEVICE INITIAL 02844 CANDIDA WEIN OBSERVATI 2 Aug ON CARE/DAY 50 MINUTES ADMN SET A7003 YOUR YOUR SM VOL [address] [facility] PNEUMAT NEBULIZR DISPBL OBSERVATI 85830 CANDIDA TIRADO ON CARE 2 Aug DISCHARGE MANAGEMEN T RADIOLOGI 00355 [facility] C EXAM 2 SABA CHEST 2 RADIOLOGY VIEWS ASSOCIAT FRONTAL&L ATERAL MRI 40374 [facility] SPINAL 2 CO CO [facility] LUMBAR W/O CONTRAST MATERIAL GASTRIC 00176 [facility] [place] CISCO EMPTYING 2 RADIOLOGY RHO IMAGING STUDY CALORIC 97405 R[facility] GRE RICHARD GRE VESTIBULA 2 R TEST EA IRRIGATIO N W/RECORD POSITIONA 84077 [facility] GRE RICHARD GRE L 2 NYSTAGMUS TEST SINUSOIDA 67853 [facility] R[facility] GRE L 2 VERTICAL AXIS ROTATIONA L TESTING NRV CNDJ 57520 R[facility] GRE RICHARD GRE AMPLITUDE 2 & LATENCY EACH NERVE SENSORY OPTKINETI 46621 RICHARD GRE RICHARD GRE C NYSTAG 2 BIDIR/FOV EAL/PERIP H STIM W/REC SPONTANEO 08976 RICHARD GRE RICHARD GRE US 2 NYSTAGMUS [...] YOUR SM VOL 2 PHARMACY PHARMACY NONFILTR [facility] PNEUMAT NEBULIZR DISPBL POLYSOM 67354 [employer], [employer], 6/>YRS [address] SLEEP GISSEL CHAUHAN W/CPAP CO HOS CO HOS 4/> ADDL LAURA ATTND ADMN SET A7003 YOUR YOUR SM VOL 2 PHARMACY PHARMACY NONFILTR [facility] [place] [address] ABBIE LEIVA INFUSION 2 [facility] THERAPY/P INC INC ROPHYLAXI S /DX 1ST TO 1 HR ARTHROSCO 50429 [facility] LEIV[facility] PY KNEE 2 [facility] SYNOVECTO INC INC MY LIMITED SPX THERAPEUT 71546 [facility] LEIV[facility] IC 2 [facility] INJECTION INC INC IV PUSH EACH NEW DRUG ANESTH 09044 [facility] DIAGNOSTI 2 ANESTH C OF THE [place] [address] ABBIE LEIVA INFUSION 2 MEM [facility] H[facility] THERAPY INC INC PROPHYLAX IS/DX EA HOUR BASIC 82413 ABBIE LEIVA METABOLIC 2 [facility] PANEL INC INC CALCIUM TOTAL BLOOD 90950 [facility] LEIV[facility] COUNT 2 [facility]OS[facility] COMPLETE INC INC AUTO&AUTO DIFRNTL WBC RADIOLOGI 22341 [facility] LEIVA C EXAM 2 MEM [facility] CHEST 2 INC INC VIEWS FRONTAL&L ATERAL RADEX 31904 [employer], SPINE [address] LUMBOSACR GISSEL CHAUHAN AL CO HOS CO HOS MINIMUM 4 VIEWS URNLS DIP 86185 CANDIDA TIRADO 2 Aug STICK/TAB LET RGNT NON-AUTO W/O MICRSCP POLYSOM 55114 [employer], 6/>YRS [address] SLEEP 4/> GISSEL CHAUHAN ADDL CO HOS CO HOS LAURA ATTND INJECTION J2550 [employer], [address] PROMETHAZ GISSEL CHAUHAN INE HCL CO HOS CO HOS UP TO 50 MG THERAPEUT 40721 [employer], IC [address] PROPHYLAC GISSEL CHAUHAN TIC/DX CO HOS CO HOS INJECTION SUBQ/IM COLONOSCO 46314 EVITA MARTINEZ- PY 2 SHRUTHI SHRUTHI W/BIOPSY NETO NETO SINGLE/MU LTIPLE ECG 06245 TURNER ESTEFANY TURNER ESTEFANY ROUTINE 2 ECG W/LEAST 12 LDS I&R ONLY ANES 30466 [place] [facility] LOWER 2 ANESTHESI I JR EDW INTESTINE A GROUP P[place] [address] PATHOLOGY DOUGLAS SURG 2 & SABA PATHOLOGY CYTOLOGY LAB GROSS&AIYANA ROSCOPIC EXAM RADIOLOGI 08799 [employer], C [address] EXAMINATI GISSLE CHAUHAN ON KNEE CO HOS CO HOS 1/2 VIEWS ADMN SET A7003 YOUR YOUR SM VOL [address] [facility] PNEUMAT NEBULIZR DISP HOSPITAL 00361 CANDIDA TIRADO DISCHARGE 2 Aug DAY MANAGEMEN T 30 MIN/< SBSQ 04395 [facility] 2 Aug CARE/DAY 15 MINUTES SBSQ 54409 [facility] 2 Aug CARE/DAY 25 MINUTES MAX 47326 CANDIDA TIRADO BREATHING 2 Aug CAPACITY MAXIMAL VOLUNTARY VENTJ GLUC BLD 20062 CANDIDA TIRADO GLUC MNTR 2 Aug DEV CLEARED FDA SPEC HOME USE RADIOLOGI 30714 [facility] C EXAM 2 EIDER GIOVANNA CHEST 2 RADIOLOGY VIEWS ASSOCIAT FRONTAL&L ATERAL RADEX 44625 [facility] WRIST 1 EIDER GIOVANNA COMPLETE RADIOLOGY MINIMUM 3 ASSOCIAT VIEWS STRAPPING 58987 [facility]ALE[facility] DE LEON 1 MIHAI MIHAI ELBOW/WRI ST ADMN SET A7003 YOUR YOUR SM VOL [address] [facility] PNEUMAT NEBULIZR DISPBL ADMN SET A7003 YOUR YOUR SM VOL [address] [facility] PNEUMAT NEBULIZR DISPBL OPHTH 61829 [facility] 1 GRE GRE XM&EVAL COMPRE NEW PT 1/> VST DETERMINA 75125 [facility] TION 1 GRE GRE REFRACTIV E STATE ADMN SET A7003 YOUR YOUR SM VOL [address] [facility] PNEUMAT NEBULIZR DISPBL US BREAST 78214 [facility] UNIVERS REAL 1 Y Y TIME [facility] W/IMAGE DOCUMENTA TION DIAGNOSTI G0204 [facility] C 1 Y [facility] HY INCL CAD WHEN PERF; BILAT COMPUTER- 50889 [facility] AIDED 1 Y Y DETECTION [facility] DX MAMMOGRAP HY ARTHROCEN 18939 ARIANA ALLEN 1 CLINIC [place] ASPIR&/IN PSC J MAJOR JT/BURSA W/O US ADMN SET A7003 YOUR YOUR SM VOL 1 PHARMACY PHARMACY NONFILTR [facility] PNEUMAT NEBULIZR DISPBL FILTER A7013 YOUR YOUR DISPOSABL 1 PHARMACY PHARMACY LLC LLC W/AREOSOL COMPRESS/ US GENERATOR KNEE L1830 GISSEL CHAUHAN ORTHOSIS 1 CO CO [facility] R CANVAS LONGTUDNL PREFAB RADIOLOGI 70965 GISSEL CHAUHAN C 1 CO CO EXAMINATI [facility] ON KNEE 3 VIEWS INJECTION J1885 GISSEL CHAUHAN 1 [facility] PER 15 MG APPLICATI 64072 GISSEL TIRADO ON SHORT 1 CO [facility] SPLINT CALF FOOT RADIOLOGI 95357 MARY GARDNER C EXAM 1 EIDER GIOVANNA KNEE RADIOLOGY COMPLETE ASSOCIAT 4/[place] [address] LABORATOR LABORATOR IRON 1 Y & Y & BIODIAGNO BIODIAGNO STICS STICS URNLS DIP 53319 SMITH SMITH 1 SOREN SOREN STICK/TAB LET RGNT AUTO W/O MICROSCOP Y CREATININ 36195 SMITH SMITH E OTHER 1 SOREN SOREN SOURCE BLOOD 10169 LABORATOR LABORATOR COUNT 1 Y & Y & COMPLETE BIODIAGNO BIODIAGNO AUTO&AUTO STICS STICS DIFRNTL WBC RENAL 64228 LABORATOR LABORATOR FUNCTION 1 Y & Y & PANEL BIODIAGNO BIODIAGNO STICS STICS IRON 31272 LABORATOR LABORATOR BINDING 1 Y & Y & CAPACITY BIODIAG[place] [address] LABORATOR LABORATOR PARATHORM 1 Y & Y & ONE BIODIAGNO BIODIAGNO STICS STICS 25 09741 LABORATOR LABORATOR HYDROXY 1 Y & Y & INCLUDES BIODIAGNO BIODIAGNO FRACTIONS [place] [address] LABORATOR LABORATOR FERRITIN 1 Y & Y & BIODIAGNO BIODIAGNO STICS STICS ADMN SET A7003 YOUR YOUR SM VOL 1 PHARMACY PHARMACY NONFILTR [facility] PNEUMAT NEBULIZR DISPBL RINGERS J7120 ARLENE DHALIWAL LACTATE 1 CO [facility] UP TO 1000 CC INJECTION J1100 ARLENE JACOBS 1 CO CO DEXAMETHO [facility] SONE SODIUM PHOSPHATE 1 MG INFUSION J7050 JACOBSROB JACOBS NORMAL 1 CO CO SALINE [facility] SOLUTION 250 CC INJECTION J3010 JACOBSROB KHOURY FENTANYL 1 CO [facility] 0.1 MG UNCLASSIF J3490 JACOBSROB KHOURY IED DRUGS 1 CO HAS HOSPITAL CYSTOURET 64480 [facility] LOPEZ HROSCOPY 1 SWAPNA SWAPNA W/DIL BLADDER GENERAL ANESTH X-RAY 83583 LOPEZ LOPEZ URINARY 1 SWAPNA SWAPNA TRACT EXAM WITH CONTRAST MATERIAL ANES 59111 JACOBSROB JACOBS TRANSURET 1 CO CO [facility] W/URETHRO CYSTOSCOP Y NOS INJECTION J0744 ARLENE JACOBS 1 CO [facility] ACIN INTRAVENO US INFUS 200 MG INJECTION J2250 ARLENE JACOBS 1 CO CO [facility] HCL PER 1 MG CYSTO 25950 LOPEZ LOPEZ BLADDER 1 SWAPNA SWAPNA W/URETERA L CATHETERI ZATION INJECTION J2550 ARLENE JACOBS 1 CO [facility] INE HCL UP TO 50 MG INJECTION J2405 [facility] 1 CO CO [facility] ON HCL PER 1 MG COMPREHEN 96026 LAB [facility] LAB SHERI SIVE 1 AMERIC AMERIC METABOLIC HOLDING HOLDING PANEL BLOOD 24021 LAB [facility] LAB SHERI COUNT 1 AMERIC AMERIC COMPLETE HOLDING HOLDING AUTO&AUTO DIFRNTL WBC SPMTRY 17275 FISCHER SANTIESTE W/VC 1 TRACE BAN GET EXPIRATOR FAMILY Y RON HEALTH W/WO MXML VOL VNTJ NONINVASI 57763 FISCHER BORDEN III VE 1 TRACE CALVIN EAR/PULSE FAMILY OXIMETRY HEALTH SINGLE DETER NELSON 76195 [facility] LOPE[facility] POST-VOID 1 SWAPNA SWAPNA ING RESIDUAL URINE&/BL ADDER CAP ADMN SET A7003 YOUR YOUR SM VOL 1 PHARMACY PHARMACY NONFILTR [facility] PNEUMAT NEBULIZR DISPBL RINGERS J7120 JACOBS JACOBS LACTATE 1 CO CO INFUSION [facility] UP TO 1000 CC INJECTION J0697 [facility] STERILE 1 CO CO CEFUROXIM [facility] E SODIUM PER 750 MG INJECTION J1100 [facility] 1 CO CO DEXAMETHO [facility] SONE SODIUM PHOSPHATE 1 MG INJECTION J2175 [facility] 1 CO CO MEPERIDIN [facility] E HCL PER 100 MG ANES 92415 [facility] EXTRAPERI 1 CO CO [facility] LWR ABD W/URINARY TRACT NOS UNCLASSIF J3490 [facility] IED DRUGS 1 CO CO [facility]OSPITAL [facility]OSPITAL INJECTION J1885 [facility] 1 CO CO KETOROLAC [facility] TROMETHAM INE PER 15 MG INJECTION J3010 [facility] FENTANYL 1 CO CO CITRATE [facility] 0.1 MG INJECTION J0690 [facility] 1 CO CO CEFAZOLIN [facility] SODIUM 500 MG INJECTION J2250 [facility] 1 CO CO MIDAZOLAM [facility] HCL PER 1 MG CYSTOURET 44268 LOPEZ LOPEZ HROSCOPY 1 SWAPNA SWAPNA INJECTION J2405 [facility] 1 CO CO [facility] PER 1 MG SLING 17270 L[facility] LOPE[facility] OPERATION 1 SWAPNA SWAPNA STRESS INCONTINE NCE BASIC 08899 LAB SHERI LAB SHERI METABOLIC 1 AMERIC AMERIC PANEL HOLDING HOLDING CALCIUM TOTAL RADIOLOGI 94404 [facility] C EXAM 1 TRACE TRACE CHEST 2 FAMILY FAMILY VIEWS [facility] HEALTH FRONTAL&L ATERAL SPMTRY 89812 FISCHER BORDEN III W/VC 1 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 FAMILY Y RON HEALTH W/WO MXML VOL VNTJ NONINVASI 22132 FISCHER BORDEN III VE 1 TRACE [facility] EAR/PULSE FAMILY OXIMETRY HEALTH SINGLE DETER BLOOD 36054 LAB SHERI LAB SHERI COUNT 1 AMERIC AMERIC COMPLETE HOLDING HOLDING AUTO&[place] [address] JACOBS JACOBS ABDOMEN & 1 CO CO PELVIS [facility] W/O CONTRST 1/> BODY RE RADEX 55350 [facility] ABDOMEN 1 1 CO CO HOSPITAL HOSPITAL ANTEROPOS TERIOR VIEW CYSTO 80363 L[facility]Z LOPEZ CALIBRATI 1 SWAPNA SWAPNA ON DILAT URTL STRIX/NELLY NOSIS BASIC 92845 ARLENE JACOBS METABOLIC 1 [facility] CALCIUM TOTAL CULTURE 49083 ARLENE JACOBS BACTERIAL 1 [facility] QUANTTATI VE COLONY COUNT URINE COLLECTIO 05243 ARLENE JACOBS N VENOUS 1 [facility] VENIPUNCT URE VOID 23285 L[facility] LOPEZ PRESSURE 1 SWAPNA SWAPNA STUDIES INTRAABDO SREE EMG STDS 40903 [facility] L[facility] ANAL/URTL 1 SWAPNA SWAPNA SPHNCTR OTH/THN NDL COMPLEX 88261 [facility] UROFLOMET 1 SWAPNA SWAPNA RY COMPLX 50402 LOPEZ LOPEZ CYSTOMETR 1 SWAPNA SWAPNA O W/VOID PRESS & URETHRAL PROFIL NELSON 44876 [facility] POST-VOID 1 SWAPNA SWAPNA ING RESIDUAL URINE&/BL ADDER CAP ELECTRICA A4595 EMPI INC EMPI INC L 1 STIMULATO R SUPPLIES 2 LEAD PER MONTH NELSON 27591 LOPEZ LOPEZ POST-VOID 1 SWAPNA SWAPNA ING RESIDUAL URINE&/BL ADDER CAP ADMN SET A7003 YOUR YOUR SM VOL 1 [facility] P[facility] NEBULIZR DISPBL URNLS DIP 62464 ARIANA TIRADO 1 CLINIC PARUL STICK/TAB PSC LET RGNT NON-AUTO W/O MICRSCP ARTHROCEN 56421 [facility]TR[facility] TESIS 1 [place] ASPIR&/IN ORTHOPAED ORTHOPAED J MAJOR ICS PLC ICS PLC JT/BURSA W/O US CULTURE 52192 GISSEL CHAUHAN BACTERIAL 1 [facility] QUANTTATI VE COLONY COUNT URINE CULTURE 47099 GISSEL CHAUHAN BCT 1 [facility] ISOL&PRSM [facility] PTV ID ISOLATE EA URINE URNLS DIP 47927 GISSEL CHAUHAN 1 NM CO STICK/TAB [facility] LET REAGENT AUTO MICROSCOP Y SUSCEPTBI 78539 GISSEL CHAUHAN LTY STDY 1 CO CO [facility] IAL AGNT AGAR DILUTJ ANES 71188 [place] KEO ANT NERVE 1 ANESTHESI MUSCLE A GROUP TDN PSC FASCIA&BU RSA FOREARM WRIST NEUROPLAS 96154 [facility] TRA TY 1 [place] &/TRANSPO ORTHOPAED S MEDIAN ICS PLC NRV CARPAL TUNNE TENDON 62923 [facility] TRA SHEATH 1 [place] INCISION ORTHOPAED ICS PLC ECG 31377 GISSEL CHAUHAN ROUTINE 1 CO CO ECG [facility] W/LEAST 12 LDS TRCG ONLY W/O I&R BLOOD 42261 GISSEL CHAUHAN COUNT 1 CO CO [facility] HOSPITAL AUTO&AUTO DIFRNTL WBC URNLS DIP 14948 GISSEL CHAUHAN 1 CO CO STICK/TAB [facility] LET REAGENT AUTO MICROSCOP Y RADIOLOGI 82696 GISSEL CHAUHAN C EXAM 1 CO CO CHEST 2 [facility] VIEWS FRONTAL&L ATERAL ECG 87956 RINALDINI RINALDINI ROUTINE 1 MELINDA MELINDA ECG W/LEAST 12 LDS I&R ONLY BASIC 44026 GISSEL CHAUHAN METABOLIC 1 CO CO PANEL [facility] CALCIUM TOTAL COLLECTIO 01470 GISSEL CHAUHAN N VENOUS 1 CO NM BLOOD [facility] VENIPUNCT URE WRIST L3807 [facility] HAND 1 FINGR ORTHOS W/O JNT PREFAB CSTM FIT RADEX 53696 [facility] TRA WRIST 1 [place] COMPLETE ORTHOPAED MINIMUM 3 ICS PLC VIEWS WRIST L3908 [facility] HAND 1 ORTHOSIS EXT CONTROL COCK-UP PREFAB NRV CNDJ 04320 [facility] AMPLT&LAT 1 [facility]UROLOGY [facility] NRV MOTOR SYLVIA W/F-WAVE STD NRV CNDJ 75259 [facility] AMPLITUDE 1 [facility]OLOGY [facility] LATENCY SYLVIA EACH NERVE SENSORY H-REFLEX 65583 [facility] AMPLT&LAT 1 [facility]UROLOG[facility] GASTRCN/S SYLVIA OLEUS [facility] ADMN SET A7003 YOUR YOUR SM VOL 1 PHARMACY PHARMACY NONFILTR [facility] PNEUMAT NEBULIZR DISPBL MRI 30816 ABBIE LEIVA SPINAL 1 [facility] CANAL INC INC CERVICAL W/O CONTRAST MATRL 3D 69021 [facility] 1 MEDICAL MEDICAL W/INTERP IMAGING IMAGING & ASS ASS POSTPROCE [place]PERVISI [place] MRI 90307 ABBIE LEIVA SPINAL 1 [facility]OSP CANAL INC INC LUMBAR W/O CONTRAST MATERIAL BLOOD 30985 GISSEL CHAUHAN COUNT 1 CO CO SMEAR [facility] MCRSCP W/[place] D[place] [address] GISSEL CHAUHAN INFUSION 1 CO CO HYDRATION [facility] INITIAL 31 MIN-1 HOUR COMPREHEN 10431 GISSEL CHAUHAN SIVE 1 CO CO METABOLIC [facility] PANEL COLLECTIO 77433 GISSEL CHAUHAN N VENOUS 1 CO CO BLOOD [facility] VENIPUNCT URE THER 38237 GISSEL CHAUHAN PROPH/DX 1 CO CO NJX IV [facility] PUSH SINGLE/1S T SBST/[place] [address] GISSEL CHAUHAN INFUSION 1 CO CO THERAPY/P [facility] ROPHYLAXI S /DX 1ST TO 1 HR URNLS DIP 70779 GISSEL CHAUHAN 1 CO CO STICK/TAB [facility] LET REAGENT AUTO MICROSCOP Y ADMN SET A7003 YOUR YOUR SM VOL 0 PHARMACY PHARMACY NONFILTR [facility] PNEUMAT NEBULIZR DISPBL PHYSICAL 40635 JACOBS JACOBS THERAPY 0 CO CO EVALUATIO [facility] N APPLICATI 00164 ARLENE FRANKSMING ON 0 CO CO SURFACE [facility] NEUROSTIM ULATOR TENS E0730 [employer] EMPI INC DEVICE 0 4/MORE LEADS MULTI NERVE STIMULATI ON MOLEC SEP 18548 [facility] GEL 0 Y Y ELECTROPH [facility] ORESIS EACH PREPJ MOLEC 49022 [facility] ISOL/XTRJ 0 Y Y [place] NUCLEIC ACID EA TYPE MOLECULAR 86015 [facility] DX 0 Y Y AMPLIFICA [facility] TION TARGET EA SEQUENCE MOLEC 90962 [facility] MUTATION 0 Y Y ID [facility] SEQUENCIN G 1 SGM EA SGM MOLECULAR 60137 [facility] 0 Y Y DIAGNOSTI [facility] CS INTERPRET ATION & REPORT ADMN SET A7003 YOUR YOUR SM VOL 0 PHARMACY PHARMACY NONFIL [facility] PNEUMAT NEBULIZR DISPBL MAMMOGRAP 44277 [place] ACUNA SABA HIC GID 0 MEDICAL NEEDLE SERV PLACEMENT [place] [address] [place] ANN MOL SURG 0 MEDICAL PATHOLOGY SERV FOUNDATIO GROSS&AIYANA ROSCOPIC EXAM RADIOLOGI 93270 [place] ANN MOL TRAVIS 0 MEDICAL EXAMINATI SERV ON FOUNDATIO SURGICAL SPECIMEN PREOP 26179 [place] ACUNA SABA PLACEMENT 0 MEDICAL SERV LOCALIZAT FOUNDATIO ION WIRE BREAST MASTECTOM 47796 [place] ALVARADO Y PARTIAL 0 MEDICAL HEA SERV FOUNDATIO ANES 76470 [place] W[place] INTEG 0 MEDICAL R GIOVANY EXTREMITI SERV ES ANT FOUNDATIO TRUNK & PERINEUM NOS BASIC 39246 [facility] METABOLIC 0 Y Y PANEL [facility] CALCIUM TOTAL BLOOD 01046 [facility] COUNT 0 Y Y COMPLETE [facility] AUTOMATED COLLECTIO 22374 [facility] N VENOUS 0 Y Y BLOOD [facility] VENIPUNCT URE ECG 97922 [facility] ROUTINE 0 Y Y ECG [facility] W/LEAST 12 LDS TRCG ONLY W/O I&R BREAST 20101 [facility] BIOPSY 0 Y Y VACUUM [facility] ASSISTED/ ROTATING DEVICE IMG GID 05708 [facility] PLIA MTLC 0 Y Y [facility] CLIP PRQ BRST BX/[place] [address] [facility] SURG 0 Y Y PATHOLOGY [facility] GROSS&AIYANA ROSCOPIC EXAM STRTCTC 92001 [facility] 0 Y Y GID [facility] BREAST BX/NEEDLE PLACEMENT RADIOLOGI 36968 [facility] TRAVIS 0 [facility] SPECIMEN DIAGNOSTI G0204 [facility] C 0 Y Y MAMMOGRAP [facility] HY INCL CAD WHEN PERF; BILAT US BREAST 72161 [facility] REAL 0 Y Y TIME [facility] W/IMAGE DOCUMENTA TION ADMN SET A7003 YOUR YOUR SM VOL 0 PHARMACY PHARMACY NONFILTR [facility] PNEUMAT NEBULIZR DISPBL UROGRAPHY 09886 MARY ELSA IV W/WO 0 [place] KUB W/WO RADIOLOGY TOMOGRAPH ASSOCIAT Y US BREAST 97718 [facility] REAL 0 CALVIN TIME RADIOLOGY W/IMAGE ASSOCIAT DOCUMENTA TION ADMN SET A7003 YOUR YOUR SM VOL 0 PHARMACY PHARMACY NONFILTR LLC LLC PNEUMAT NEBULIZR DISPBL ADMN SET [id number] YOUR YOUR SM VOL [address] [facility] PNEUMAT NEBULIZR DISPBL MAMMOGRAP 85984 GISSEL CHAUHAN HY 0 [facility] MAMMOGRAP 47672 GISSEL CHAUHAN HY 0 [facility] SCREENING [address] [place], 0 MC S MAMMOGRAP RADIOLOGY HY BILATERAL ASSOCIATE S PSC RADEX 32688 NATALIIAAMINTA HUNTER, RIBS UNI 0 KORTNEY C W/POSTERO RADIOLOGY ANT CH MINIMUM 3 ASSOCIATE VIEWS S PSC RADEX 80902 NATALIIAAMINTA HUNTER, FINGR 0 KORTNEY C MINIMUM 2 RADIOLOGY VIEWS ASSOCIATE S PSC ADMN SET [id number] YOUR YOUR SM VOL 0 PHARMACY PHARMACY NONFILTR [facility] PNEUMAT NEBULIZR DISPBL ADMN SET A7003 YOUR YOUR SM VOL 0 PHARMACY PHARMACY NONFILTR [facility] PNEUMAT NEBULIZR DISPBL LIPID [id number] [facility] PANEL 0 [facility] 86401 [facility] FUNCTION 0 [facility] PANEL [place] BONE 90522 BETY ELY 9 JEAN ALVARADO M.D.P.S.C STUDY 1/> [place] S[place] [address] GISSEL CHAUHAN INFUSION 9 CO CO TH[facility]APY/[facility] /DX 1ST TO 1 HR DEMO&/LURDES 76625 GISSEL CHAUHAN L OF PT 9 CO CO UTILIZ [facility] AERSL GEN/NEB/I NHLR/IP MANJ 37500 GISSEL CHAUHAN CHEST 9 [facility] FACILITAT E LUNG FUNCTION SUBSQ DEMO&/LURDES 86003 GISSEL CHAUHAN L OF PT 9 CO CO UTILIZ [facility] AERSL GEN/NEB/I NHLR/IP MANJ 36603 GISSEL CHAUHAN CHEST 9 CO CO WALL [facility] [place] [address] GISSEL CHAUHAN INFUSION 9 CO [facility] /DX 1ST TO 1 HR ECG 12363 ZENON YARBROUGH ROUTINE 9 , DEEPAK , DEEPAK ECG W/LEAST 12 LDS I&R ONLY RADIOLOGI 00005 GISSEL CHAUHAN C EXAM 9 CO CO CHEST 2 [facility] VIEWS FRONTAL&[place] [address] GISSEL CHAUHAN INFUSION 9 [facility] S /DX 1ST TO 1 HR PRESSURIZ 35115 GISSEL CHAUHAN ED/NONPRE 9 CO CO SSURIZED [facility] INHALATIO N TREATMENT BLOOD 78166 GISSEL CHAUHAN COUNT 9 CO CO COMPLETE [facility] AUTO&AUTO DIFRNTL WBC BLOOD 89847 GISSEL CHAUHAN COUNT 9 CO CO SMEAR [facility] MCRSCP W/[place] [address] GISSEL CHAUHAN INFUSION 9 CO CO THERAPY [facility] PROPHYLAX IS/DX EA HOUR BASIC 29710 GISSEL CHAUHAN METABOLIC 9 CO CO PANEL [facility] CALCIUM TOTAL COLLECTIO 47277 GISSEL Merida VENOUS 9 CO CO BLOOD [facility] 58335 ZENON YARBROUGH DISCHARGE 9 , DEEPAK , DEEPAK DAY MANAGEMEN T 30 MIN/< PRESSURIZ 19032 GISSEL CHAUHAN ED/NONPRE 9 CO [facility]URIZED [facility]PITAL INHALATIO N TREATMENT NONINVASI 96856 GISSEL CHAUHAN VE 9 CO CO EAR/PULSE [facility] OXIMETRY SINGLE DETER RADEX ABD 02277 [facility] COMPL 9 EIDER, AQT ABD RADIOLOGY LEON W/S/E/D K VIEWS 1 ASSOCIATE VIEW CH S PSC BLOOD 32820 GISSEL CHAUHAN COUNT 9 CO CO COMPLETE [facility] AUTO&AUTO DIFRNTL WBC NONINVASI 51974 GISSEL CHAUHAN VE 9 CO CO EAR/PULSE [facility] [place] [address] GISSEL CHAUHAN LIPASE 9 CO CO [facility] ECG 61346 GISSEL CHAUHAN ROUTINE 9 CO CO ECG [facility] W/LEAST 12 LDS TRCG ONLY W/O I&R DEMO&/LURDES 10390 GISSEL CHAUHAN L OF PT 9 CO CO UTILIZ [facility] AERSL GEN/NEB/I NHLR/[place] [address] GISSEL CHAUHAN AMYLASE 9 CO CO [facility] G0378 GISSEL CHAUHAN OBSERVATI 9 CO CO ON HOSPITAL HOSPITAL SERVICE PER HOUR COMPREHEN 34730 GISSEL CHAUHAN SIVE 9 CO CO METABOLIC [facility] PANEL INJECTION 80336 JENNIFER LLAMAS, OF LOWER 9 TRACEY ALVARADO [facility] SPINAL . JOINT OR NERVE FLUOR 14178 JENNIFER LLAMAS, NEEDLE/CA 9 TRACEY ALVARADO M.D.P.S.C SPINE/PAR . ASPINAL DX/THER ADDON NJX 09897 STONE STONE ANES&/STR [address] D JT NRV SURGERY SURGERY LMBR/SAC CENTER CENTER 1 LVL URNLS DIP 87802 GISSEL CHAUHAN 9 CO CO STICK/TAB [facility] [place] [address] GISSEL CHAUHAN INFUSION 9 CO CO [facility] INITIAL 31 MIN-1 HOUR THER 75777 GISSEL CHAUHAN PROPH/DX 9 CO CO NJX [facility] PUSH SINGLE/1S T SBST/DRUG IADNA NOS 73634 QUEST QUEST 9 DIAGNOSTI DIAGNOSTI AMPLIFIED CS CS PROBE TQ EACH ORGANISM ADMN SET A7003 YOUR YOUR SM VOL 9 PHARMACY [facility] PNEUMAT NEBULIZR DISPBL MRI ANY 24890 KATJA C TYRONE, JT LOWER 9 TYRONE KATJA EXTREM W/O CONTRAST MATRL RADEX 70892 GISSEL CHAUHAN ANKLE 9 CO CO [facility] MINIMUM 3 VIEWS ADMN SET A7003 YOUR YOUR SM VOL 9 PHARMACY PHARMACY [facility] PNEUMAT NEBULIZR DISPBL RADEX 81878 GISSEL CHAUHAN SPINE 9 CO CO LUMBOSACR [facility] AL MINIMUM 4 VIEWS LUMB-SACR L0637 [employer]ASS BL[employer]GRASS AL ORTHOS 9 BRACING BRACING [employer] INC. INC. CNTRL RIGD A&P PREFAB MRI 69096 KATJA C TYRONE, SPINAL 9 TYRONE KATJA CANAL LUMBAR W/O CONTRAST MATERIAL 3D 86583 KATJA C TYRONE, RENDERING 9 TYRONE KATJA W/INTERP & POSTPROCE SS SUPERVISI ON ADMN SET A7003 YOUR YOUR SM VOL 9 PHARMACY PHARMACY [facility] PNEUMAT NEBULIZR DISPBL VIRUS 99252 [facility] CENTRIFUG 9 [facility] INC E ENHNCD ID IMFLUOR STAIN EA CT LUMBAR 86117 [place] ZHANG, SPINE 9 MC S W/O RADIOLOGY CONTRAST MATERIAL ASSOCIATE S PSC 3D 40401 GISSEL CHAUHAN RENDERING 9 CO CO W/INTERP [facility] & POSTPROCE SS SUPERVISI ON ADMN SET A7003 YOUR YOUR SM VOL 9 PHARMACY PHARMACY [facility] PNEUMAT NEBULIZR DISPBL NON-INVAS 15918 ABBIE LEIVA YVETTE 9 MEM HOSP [facility]OSP PHYSIOLOG INC INC IC STUDY EXTREMITY 3 LEVLS RADIOLOGI 59393 Sarah WEBBER 9 MC S EXAMINATI RADIOLOGY ON CHEST SINGLE ASSOCIATE VIEW S PSC FRONTAL ADMN SET A7003 YOUR YOUR SM VOL 9 PHARMACY PHARMACY NONFILTR [employer] PNEUMAT NEBULIZR DISPBL LIPID 85223 [facility] PANEL 9 [facility] INC ECG 66582 LICKING MCKEMIE ROUTINE 9 VALLEY JR, ECG INTERNAL ROSITA F W/LEAST MED 12 LDS W/I&R NONINVASI 44378 LICKING BESSON, VE 9 VALLEY WILLIAM A EAR/PULSE INTERNAL OXIMETRY MED SINGLE DETER RADIOLOGI 83294 GISSEL CHAUHAN C EXAM 9 CO NM CHEST [address] [place] [address] VIEWS FRONTAL&L ATERAL ADMN SET A7003 YOUR YOUR SM VOL 9 PHARMACY PHARMACY NONFILTR [employer] [place] L[place] [address] PATHOLOGY PATHOLOGY SURG 8 & & PATHOLOGY CYTOLOGY CYTOLOGY LAB LAB GROSS&AIYANA ROSCOPIC EXAM ADMN SET A7003 YOUR YOUR SM VOL [address] NON[address] [facility] PNEUMAT NEBULIZR DISPBL EXC B9 27254 RINALDINI RINALDINI LESION 8 , DEEPAK , DEEPAK [facility] SK TG T/A/L 0.5 CM/< EXC B9 40213 GISSEL CHAUHAN LESION 8 CO [facility] SK TG T/A/L 2.1-3.0 CM THERAPEUT 81357 GISSEL CHAUHAN IC PX 1/> 8 CO [facility] EACH 15 MIN EXERCISES PHYSICAL 26556 GISSEL CHAUHAN THERAPY 8 CO NM EVALUATIO [facility] N RADEX 03337 GISSEL CHAUHAN SPINE 8 CO NM CERVICAL [facility] 4 OR 5 VIEWS COLSC FLX 50661 BUSHRA CAMARILLO, 8 MEDICAL DENNIS W/REMOVAL SERV LESION FOUNDATIO [place] [address] ABBIE LEIVA THER 8 MEM H[facility] PROPH/DX INC [place] 1ST >1 [place] L[place] [address] PATHOLOGY PATHOLOGY SURG 8 & & PATHOLOGY CYTOLOGY CYTOLOGY LAB LAB GROSS&AIYANA ROSCOPIC EXAM [ENDOSCOP 4836 ABBIE LEIVA IC] 8 MEM HOS[facility] POLYPECTO INC INC MY OF RECTUM ADMN SET A7003 YOUR YOUR SM VOL 8 PHARMACY PHARMACY NONFILTR LLC LLC PNEUMAT NEBULIZR DISPBL ANTIBODY 75159 GISSEL CHAUHAN HELICOBAC [address] [facility] PYLORI COLLECTIO 46610 GISSEL CHAUHAN N VENOUS 8 CO CO BLOOD [facility] VENIPUNCT URE BASIC 61570 GISSEL CHAUHAN METABOLIC 8 CO CO PANEL [facility] CALCIUM TOTAL THER 56194 GISSEL CHAUHAN PROPH/DX 8 CO CO NJX [facility] SUBQ/IM BLOOD 13660 GISSEL CHAUHAN COUNT 8 CO CO [facility] AUTO&AUTO DIFRNTL WBC URNLS DIP 70698 GISSEL CHAUHAN 8 CO CO STICK/TAB [facility] LET REAGENT AUTO MICROSCOP Y BASIC 27665 [facility] METABOLIC 8 [facility] PANEL CALCIUM TOTAL HEMOGLOBI 95331 [facility] N 8 [facility] GLYCOSYLA KAMLA A1C LIPID 54308 [facility] PANEL 8 [facility] HEPATIC 43373 [facility] FUNCTION 8 [facility] [place] [address] [facility] THYROID 8 [facility] STIMULATI NG HORMONE TSH COLLECTIO 96962 RINALDINI MIAHALDINI N VENOUS 8 , DEEPAK , DEEPAK BLOOD VENIPUNCT URE ADMN SET A7003 YOUR YOUR SM VOL 8 PHARMACY PHARMACY NONFILTR [employer] PNEUMAT NEBULIZR DISPBL SPCL STN 82774 PATHOLOGY PATHOLOGY 2 I&R 8 & & EXCPT CYTOLOGY CYTOLOGY MICROORG/ LAB LAB ENZYME/IM CYT EGD 23502 ABBIE LEIVA TRANSORAL 8 [facility] BIOPSY INC INC SINGLE/[place] [address] ABBIE LEIVA THER 8 [facility] PROPH/DX INC [place] 1ST >1 [place] L[place] [address] PATHOLOGY PATHOLOGY SURG 8 & & PATHOLOGY CYTOLOGY CYTOLOGY LAB LAB GROSS&AIYANA ROSCOPIC EXAM ESOPHAGOG 4516 ABBIE LEIVA ASTRODUOD 8 MEM H[facility] ENOSCOPY INC INC WITH CLOSED BIOPSY GENERAL 68014 [facility] HEALTH 8 [facility] PANEL NATRIURET 39904 QUEST SABRINA QUEST SABRINA IC 8 [facility] BLOOD 91761 [facility] COUNT 8 [facility] COMPLETE AUTO&AUTO DIFRNTL WBC LIPID 96226 [facility] PANEL 8 [place] [address] [facility] THYROID 8 [facility] STIMULATI NG HORMONE TSH Encounters Encounter Start End Date Code Location Performer Type Date HOSPITAL ABBIE - 7 7 [facility] T [facility]ISIT S GROUP 25 MINUTES [facility]OSP[facility] ABBIE - 7 7 [facility]EN [facility] ABBIE [facility] 7 7 [facility] T OFFICE 59967 ABBIE ORTEGA 7 7 [facility] T VISIT INC 10 MINUTES HOSPITAL ABBIE - 7 7 [facility] T EMERGENCY 05273 [facility] 7 7 [facility] EMERGENCY T VISIT PHYS MODERATE SEVERITY HOSPITAL ABBIE - 7 7 [facility]EN [facility]OSPITAL ABBIE - 6 6 [facility] OUTPATIEN INC T OFFICE 00791 DEMETRA CORTEZ [facility] 6 6 [facility] T VISIT 15 MINUTES OFFICE 27022 ABBIE ORTEGA 6 6 MEM [facility] T VISIT INC 10 MINUTES HOSPITAL ABBIE - 6 6 [facility] OUTPATIEN INC T HOSPITAL ABBIE - 6 6 [facility] OUTPATIEN INC T OFFICE 27508 DEMETRA CORTEZ [facility] OUTPATI 6 6 [facility] T VISIT 15 MINUTES HOSPITAL ABBIE - 6 6 [facility] OUTPATIEN INC T OFFICE 11919 ABBIE OUTPATIEN 6 6 MEM HOS[facility] T VISIT INC 10 MINUTES OFFICE 58195 ABBIE OUTPATIEN 6 6 MEM HOS[facility] T VISIT INC 10 MINUTES HOSPITAL ABBIE - 6 6 [facility] JACOBS - 6 6 [facility] - [address] [place] [address] T OFFICE 58725 [facility] 6 NE [facility]ALTH CAR T VISIT MEDICAL 15 G MINUTES OFFICE 68474 [facility] CONSULTAT 6 6 ANALY ION [facility] NEW/ESTAB PLLC PATIENT 60 MIN OFFICE 29114 [facility] KAYLYNN [facility] 6 6 PHYSICIAN NHAN T NEW 20 S GROUP MINUTES OFFICE 54700 [facility] 6 6 NE HEALTH CAR T NEW 30 MEDICAL MINUTES G EMERGENCY 23207 [facility] 6 6 EMILY [facility] EMERGENC[facility] T VISIT PHYS HIGH/URGE NT SEVERITY OFFICE 29232 ABBIE OUTPATIEN 6 6 [facility] T VISIT INC 10 MINUTES HOSPITAL ABBIE - 6 6 [facility] T OFFICE 58582 [facility] EVERETTE HOLM [facility] 6 6 PHYSICIAN T VISIT S GROUP 10 MINUTES OFFICE 54770 MINERVA MELO [facility] 6 6 W R IV STELLA T VISIT PHYSICIAN 25 PRACTIC MINUTES HOSPITAL [facility] - [address] [place] [address] T OFFICE 61239 MINERVA MELO OUTPATIEN 6 6 W R IV STELLA T VISIT PHYSICIAN 25 PRACTIC MINUTES [facility] ABBIE - 6 6 MEM [facility] OUTPATIEN INC T OFFICE 27104 ABBIE OUTPATIEN 6 6 MEM HOS[facility] T VISIT INC 10 MINUTES OFFICE 81320 MINERVA MELO OUTPATIEN 6 6 W R IV STELLA T NEW 60 PHYSICIAN MINUTES PRACTIC OFFICE 14701 [facility] HALEY OUTPATIEN 6 6 PHYSICIAN STONE T VISIT S GROUP GEOVANNY HOLM 15 MINUTES EMERGENCY 69175 [facility] 6 6 EMILY PHI DEPARTMEN EMERGENCY T VISIT PHYS HIGH/URGE NT [facility] ABBIE - 6 6 MEM H[facility] OUTPATIEN [facility] ABBIE - 6 6 [facility] OUTPATIEN [facility] OFFICE 25087 ABBIE OUTPATIEN 6 6 MEM HOS[facility] T VISIT INC 10 MINUTES HOSPITAL ABBIE - 6 6 [facility] OUTPATIEN [facility] ABBIE - 6 6 [facility] OUTPATIEN INC EMERGENCY 07755 [facility] EMILY VISIT EMERGENCY HIGH PHYS SEVERITY& TH[facility]AT [facility] OUTPATIEN INC OFFICE 32262 ABBIE OUTPATIEN 6 6 [facility]OS[facility] T VISIT INC 10 MINUTES OFFICE 35039 [facility] MOI OUTPATIEN 6 6 PHYSICIAN AIYANA T VISIT S GROUP 10 MINUTES OFFICE 38969 [facility] MOI OUTPATIEN 6 6 PHYSICIAN AIYANA T VISIT S GROUP 15 MINUTES OFFICE 52111 ABBIE OUTPATIEN 5 5 [facility] T VISIT INC 10 MINUTES HOSPITAL ABBIE - 5 5 [facility] OUTPATIEN INC T HOSPITAL ABBIE - 5 5 [facility] OUTPATIEN INC T OFFICE 17161 [facility] PETTEY OUTPATIEN 5 5 PHYSICIAN JAM T NEW 30 S GROUP MINUTES HOSPITAL ABBIE - 5 5 [facility] OUTPATIEN INC T OFFICE 12734 [facility] MOI OUTPATIEN 5 5 PHYSICIAN AIYANA T VISIT S GROUP 25 MINUTES HOSPITAL ABBIE - 5 5 [facility] OUTPATIEN INC T OFFICE 81201 ABBIE OUTPATIEN 5 5 [facility] T VISIT INC 10 MINUTES HOSPITAL ABBIE - 5 5 [facility] OUTPATIEN INC T OFFICE 42895 [facility] MOI OUTPATIEN 5 5 PHYSICIAN AIYANA T VISIT S GROUP 25 MINUTES OFFICE 24891 [facility] MOI OUTPATIEN 5 5 PHYSICIAN AIYANA T VISIT S GROUP 15 MINUTES EMERGENCY 29729 [place] 5 5 [facility] T VISIT HIGH/URGE NT SEVERITY [facility]OSPITAL [place] - 5 5 [facility] T [facility]ERGENC[facility] 7[facility]33 [facility] VISIT EMERGENCY HIGH PHYS SEVERITY& THREAT FUN OFFICE 86123 TRACY COATES [facility] 5 5 MD BENJAMIN, T VISIT PSC 10 MINUTES HOSPITAL JACOBS - 5 5 [facility] HOSPITAL JACOBS - 5 5 [facility] T OFFICE 59700 [facility] OUT[facility] 5 5 PHYSICIAN AIYANA T VISIT S GROUP 15 MINUTES HOSPITAL JACOBS - 5 5 [facility] T EMERGENCY 30519 [facility] 5 5 EMILY DEPARTMEN EMERGENCY T VISIT PHYS HIGH/URGE NT SEVERITY EMERGENCY 53134 JACO[facility] 5 5 CO [facility] T VISIT MODERATE SEVERITY OFFICE 51660 JACOBS DEMOYA OUTPATIEN 5 5 CO HOSP LIAM T VISIT 15 MINUTES HOSPITAL ABBIE - 5 5 [facility] OUTPATIEN INC T OFFICE 37933 DEMETRA ALEXANDER BUX ANJ OUTPATIEN 5 5 MD T NEW 30 MINUTES OFFICE 46234 ABBIE OUTPATIEN 5 5 [facility] T VISIT INC 10 MINUTES OFFICE 91927 [facility] MOI OUTPATIEN 5 5 PHYSICIAN AIYANA T VISIT S GROUP 15 MINUTES OFFICE 14582 [facility] MOI OUTPATIEN 5 5 PHYSICIAN AIYANA T VISIT S GROUP 25 MINUTES HOSPITAL JACOBS - 5 5 [facility] T OFFICE 61694 [facility] MOI OUTPATIEN 5 5 PHYSICIAN AIYANA T VISIT S GROUP 15 MINUTES EMERGENCY 63311 [facility] 5 5 EMILY JAM [facility] EMERGENCY T VISIT PHYS HIGH/URGE NT SEVERITY OFFICE 94098 [facility] MOI OUTPATIEN 5 5 PHYSICIAN AIYANA T VISIT S GROUP 25 MINUTES OFFICE 12144 [facility] MOI OUTPATIEN 5 5 PHYSICIAN AIYANA T NEW 30 S GROUP MINUTES HOSPITAL JACOBS - 5 5 [facility] T EMERGENCY 13976 JACOBS 5 5 CO [facility] T VISIT HIGH/URGE NT SEVERITY EMERGENCY 65343 [facility] DEPT 5 5 EMILY JAM VISIT EMERGENCY HIGH PHYS SEVERITY& THREAT FUNCJ OFFICE 38079 BELEN JARAMILLO OUTPATIEN 5 5 [place] PEREZ T VISIT [facility] 15 MINUTES HOSPITAL JACOBS - 5 5 [facility] T OFFICE 75795 EDNAGIOKLEVER KOO OUTPATIEN [address] [facility] T VISIT CLINIC 15 MINUTES OFFICE 34935 [place] ANGEL CONSULTAT 5 5 MEDICAL III THO ION SERV NEW/ESTAB FOUNDATIO PATIENT N 60 MIN OFFICE 64628 BELEN JARAMILLO OUTPATIEN 5 5 [place] ANA T VISIT PSC 25 MINUTES OFFICE 35355 ALMAZ ARUNAMICHELLE OUTPATIEN [address] [facility] T VISIT CLINIC 15 MINUTES OFFICE 92990 BELEN JARAMILLO OUTPATIEN 4 4 [place] ANA T VISIT [facility] 15 MINUTES HOSPITAL JACOBS - 4 4 [facility] T OFFICE 90842 GIOVANNY HAM GIOVANNY HAM OUTPATIEN 4 4 T VISIT 15 MINUTES OFFICE 16996 ARIANA DIAZ- OUTPATIEN 4 4 [facility] [place] T VISIT 15 MINUTES OFFICE 75990 GIOVANNY HAM GIOVANNY HAM OUTPATIEN 4 4 T VISIT 15 MINUTES OFFICE 59421 GIOVANNY HAM GIOVANNY HAM OUTPATIEN 4 4 T VISIT 15 MINUTES HOSPITAL JACOBS - 4 4 [facility] JACOBS - 4 4 [facility] T OFFICE 76659 ARIANA DIAZ- OUTPATIEN 4 4 [facility] [place] T VISIT 15 MINUTES HOSPITAL [place] - OTHER 4 4 CO HOSPITAL OFFICE 91463 [place] COLES OUTPATIEN 4 4 CO HOSP LAR T VISIT 15 MINUTES OFFICE 16848 ARIANA DIAZ- OUTPATIEN 4 4 [facility] [place] T VISIT 15 MINUTES OFFICE 51632 ARIANA DIAZ- OUTPATIEN 4 4 [facility] [place] T VISIT 15 MINUTES OFFICE 04040 GIOVANNY HAM GIOVANNY HAM OUTPATIEN 4 4 T VISIT 15 MINUTES OFFICE 91544 [place] FELIPENS OUTPATIEN 4 4 CO HOSP LAR T VISIT 15 MINUTES OFFICE 22312 ARIANA DIAZ- OUTPATIEN 4 4 [facility] [place] T VISIT 15 MINUTES HOSPITAL ABBIE - 4 4 [facility] T OFFICE 39276 ARIANAARLEN DE LEON OUTPATIEN 4 4 CLINIC MIHAI T VISIT 15 MINUTES OFFICE 62697 GIOVANNY DEBRA GIOVANNY HAM OUTPATIEN 4 4 T VISIT 15 MINUTES OFFICE 26318 ARIANA DIAZ- OUTPATIEN 4 4 [facility] [place] T VISIT 15 MINUTES HOSPITAL GEORGEW - 4 4 N [facility] - 4 4 [facility] AGATHAW - 4 4 N [facility] OFFICE 96645 GIOVANNY DEBRA GIOVANNY HAM OUTPATIEN 4 4 T VISIT 15 MINUTES OFFICE 85196 ARIANA OUTPATIEN 4 4 CLINIC T VISIT 25 MINUTES OFFICE 86924 GIOVANNY HAM GIOVANNY HAM OUTPATIEN 4 4 T VISIT 15 MINUTES OFFICE 33044 CHAIDEZ CHAIDEZ OUTPATIEN 4 4 NHAN NHAN T VISIT 15 MINUTES OFFICE 87543 ARIANA DIAZ- OUTPATIEN 4 4 [facility] [place] T VISIT 25 MINUTES OFFICE 20514 SANKET FELIPENS OUTPATIEN 4 4 LAR LAR T VISIT 5 MINUTES HOSPITAL [place] - 4 4 [facility] JACOBS - 4 4 [facility] T HOSPITAL JACOBS - 4 4 [facility] T EMERGENCY 36060 JACOBS 4 4 CO [facility] T VISIT HIGH/URGE NT SEVERITY HOSPITAL JACOBS - 4 4 [facility] 45701 [facility] DE[facility] 4 4 VISIT HIGH SEVERITY& THREAT FUNCJ OFFICE 69946 SANKET COLES OUTPATIEN 4 4 LAR LAR T NEW 30 MINUTES OFFICE 96767 ARIANA OUTPATIEN 4 4 CLINIC T VISIT 15 MINUTES HOSPITAL [facility], - [address] OUTPATI GISSEL T [facility] OFFICE 68779 GIOVANNY DEBRA BALTAZAR HAM OUTPATIEN 4 4 T VISIT 15 MINUTES OFFICE 71354 CHAIDEZ CHAIDEZ OUTPATIEN 4 4 NHAN NHAN T NEW 30 MINUTES EMERGENCY 85601 VALENTINO AVELAR DEPT 4 4 Oct VISIT HIGH SEVERITY& THREAT FUN HOSPITAL JACOBS - 4 4 [facility] T EMERGENCY 51909 JACOBS 4 4 CO [facility] T VISIT HIGH/URGE NT SEVERITY OFFICE 44292 GIOVANNY DEBRA BALTAZAR HAM OUTPATIEN 4 4 T VISIT 15 MINUTES OFFICE 68293 ARIANA KENYA OUTPATIEN 4 4 CLINIC HEN T VISIT 15 MINUTES HOSPITAL GEORGETOW - 4 4 N OUTPATIEN COMMUNTIY T HOSPITA OFFICE 85186 GIOVANNY DEBRA BALTAZAR HAM OUTPATIEN 4 4 T VISIT 15 MINUTES HOSPITAL UNIVERSIT - 4 4 [facility] T OFFICE 51633 MANDY GALVAN OUTPATIEN 4 4 LIAM LIAM T VISIT 15 MINUTES OFFICE 00529 GIOVANNY RICHARDSON OUTPATIEN 4 4 T VISIT 15 MINUTES OFFICE 56578 MANDY GALVAN OUTPATIEN 3 3 LIAM LIAM T VISIT 15 MINUTES HOSPITAL [facility]ERS[facility] - 3 3 [facility] 80198 UNIVERSIT OUTPATIEN 3 3 Y T VISIT HOSPITAL 10 MINUTES OFFICE 11153 GIOVANNY RICHARDSON OUTPATIEN 3 3 T VISIT 15 MINUTES OFFICE 62046 ARIANA CARLOS OUTPATIEN 3 3 [facility] T VISIT 25 MINUTES EMERGENCY 80954 KILEY CAO DEPT 3 3 STELLA STELLA VISIT HIGH SEVERITY& THREAT [facility] OFFICE 46900 GIOVANNY RICHARDSON OUTPATIEN 3 3 T VISIT 15 MINUTES EMERGENCY 61234 [place] 3 3 [facility] T VISIT HIGH/URGE NT SEVERITY EMERGENCY 65755 JESSE AVELAR DEPT 3 3 EMERGENCY MAR VISIT SERVICES HIGH SEVERITY& THREAT [facility] [place] - 3 3 [facility] EMERGENCY 30360 [place] 3 3 [facility] T VISIT HIGH/URGE NT SEVERITY HOSPITAL [place] - 3 3 [facility] EMERGENCY 67179 KILEY CAO DEPT 3 3 STELLA STELLA VISIT HIGH SEVERITY& THREAT [facility] EMERGENCY 76467 SOKAN BAB SOKAN BAB 3 3 [facility] T VISIT HIGH/URGE NT SEVERITY OFFICE 58523 GIOVANNY RICHARDSON OUTPATIEN 3 3 T VISIT 15 MINUTES HOSPITAL ABBIE - 3 3 [facility] OUTPATIEN INC T OFFICE 25703 BUSHRA CAMARILLO MOIRA OUTPATIEN 3 3 MEDICAL T VISIT SERV 25 FOUNDATIO MINUTES N OFFICE 58619 GIOVANNY BALTAZAR HAM OUTPATIEN 3 3 T VISIT 15 MINUTES [facility] - [address] OUTPATIEN GISSEL T CO HOS OFFICE 10958 GIOVANNY RICHARDSON OUTPATIEN 3 3 T NEW 45 MINUTES [facility] - [address] OUTPATIEN GISSEL T CO HOS OFFICE 13328 ARIANA KENYA OUTPATIEN 3 3 CLINIC HEN T VISIT 15 MINUTES HOSPITAL CENTRAL - 3 3 [facility] OUT[facility]IEN [facility]OSP T OFFICE 17456 MAHNAZ JR JOYA JR OUTPATIEN 3 3 SOREN SOREN T NEW 45 MINUTES OFFICE 71352 HARPEL HARPEL OUTPATIEN 3 3 KELLY EKLLY T VISIT 15 MINUTES OFFICE 10261 ARIANA KENYA OUTPATIEN 3 3 CLINIC HEN T VISIT 15 MINUTES HOSPITAL ABBIE - 3 3 [facility] OUTPATIEN INC T INITIAL 37570 HARPEL HARPEL PREVENTIV 3 3 KELLY KELLY E MEDICINE NEW PATIENT 40-64YRS OFFICE 28425 CAMARILLO MOIRA CAMARILLO MOIRA OUTPATIEN 3 3 T VISIT 25 MINUTES OFFICE 00957 ARIANA DIAZ- OUTPATIEN 3 3 [facility] [place] T VISIT 15 MINUTES OFFICE 50363 ARIANA DIAZ- OUTPATIEN 3 3 [facility] [place] T VISIT 15 MINUTES EMERGENCY 67393 JESSE KIMBALL DEPT 3 3 EMERGENCY [facility] VISIT SERVICES HIGH SEVERITY& THREAT FUN OFFICE 67210 CANDIDA TIRADO OUTPATIEN 3 3 Aug T VISIT 15 MINUTES OFFICE 33202 ERIBERTOFuad ERIBERTOFuad OUTPATIEN 3 3 Aug T VISIT 25 MINUTES HOSP[facility] - 3 3 [facility] OFF[facility] 00591 ERIBERTOFuad ERIBERTOFuad OUTPATIEN 3 3 Aug T VISIT 25 MINUTES OFFICE 51213 CAMARILLO MOIRA CAMARILLO MOIRA OUTPATIEN 3 3 T VISIT 15 MINUTES HOSPITAL ABBIE - 3 3 [facility] T OFFICE 60357 [facility] 3 Y T VISIT HOSPITAL 25 MINUTES OFFICE 79840 MANDY GALVAN OUTPATIEN 3 3 LIAMMarianne REYNOLDSS T VISIT 10 MINUTES HOSPITAL UNIVERSIT - 3 3 [facility] H[facility] ABBIE - 3 3 [facility] T OFFICE 44739 CAMARILLO MOIRA CAMARILLO MOIRA OUTPATIEN 3 3 T VISIT 25 MINUTES OFFICE 41330 CANDIDA WEIFuad OUTPATIEN 3 3 Aug T VISIT 25 MINUTES HOSPITAL UNIVERSIT - 3 3 [facility] - 3 3 [facility] HOS OFFICE 91912 ERIBERTOFuad ERIBERTOFuad OUTPATIEN 3 3 Aug T VISIT 25 MINUTES OFFICE 57592 NOEMI FRANKLIN JR CONSULTAT 3 3 ION NEW/ESTAB PATIENT 60 MIN OFFICE 21798 SAVANNAHANDRIYFuad TIRADO OUTPATIEN 3 3 Aug T VISIT 25 MINUTES OFFICE 20390 SAVANNAHANDRIYFuad TIRADO OUTPATIEN 3 3 Aug T VISIT 15 MINUTES OFFICE 82632 [facility]ANDIDA [facility] 3 3 Aug T VISIT 25 MINUTES [facility] 27590 RABIA [facility]ZARRO [facility] 3 3 T VISIT 40 MINUTES OFFICE 05641 [facility] M[facility]Y [facility] 3 3 LIAMMarianne WHEELER T VISIT 25 MINUTES HOSPITAL UNIVERSIT - 3 3 Y [facility] UNIVERSIT - 2 2 Y [facility] T OFFICE 32429 [facility] 2 2 Y T NEW 60 HOSPITAL MINUTES OFFICE 15343 [facility]Y M[facility]Y [facility] 2 2 LIAMMarianne WHEELER T NEW 45 MINUTES [facility] UNIVERSIT - 2 2 Y [facility] T EMERGENCY 02948 ZEHRA SHAHID DEPT 2 2 MAT MAT VISIT HIGH SEVERITY& THREAT FUN EMERGENCY 94466 KIERSTEN KIERSTEN 2 2 HEN HEN DEPARTMEN T VISIT HIGH/URGE NT SEVERITY EMERGENCY 91742 [facility], [address] DEPARTMEN GISSEL T VISIT [facility], - [address] [facility] JACOBS - 2 2 CO [facility] T OFFICE 18928 [facility] 2 2 Y T VISIT HOSPITAL 15 MINUTES HOSPITAL UNIVERSIT - 2 2 Y [facility] T OFFICE 54866 SHIRLEY WHEELER CONSULTAT 2 2 ION NEW/ESTAB PATIENT 80 MIN HOSPITAL [facility] 41198 CANDIDA WEIFuad OUTPATIEN 2 2 Aug T VISIT 25 MINUTES HOSPITAL [facility] - [address] OUTPATIEN GISSEL T CO HOS EMERGENCY 04789 KIERSTEN SILVAO 2 2 HEN JAMEE DEPARTMEN T VISIT MODERATE SEVERITY HOSPITAL [facility] - [address] OUTPATIEN GISSEL T CO HOS OFFICE 19734 CANDIDA WEIFuad OUTPATIEN 2 2 Aug T VISIT 25 MINUTES HOSPITAL [facility] - [address] OUTPATIEN GISSEL T CO HOS OFFICE 95098 CAMARILLO MOIRA CAMARILLO MOIRA OUTPATIEN 2 2 T VISIT 15 MINUTES HOSPITAL [facility] - [address] OUTPATIEN GISSEL T CO HOS EMERGENCY 53215 CANDIDA WEIFuad 2 2 Aug DEPARTMEN T VISIT MODERATE SEVERITY HOSPITAL [facility] - [address] OUTPATIEN GISSEL T CO HOS OFFICE 24302 CAMARILLO MOIRA CAMARILLO MOIRA CONSULTAT 2 2 ION NEW/ESTAB PATIENT 60 MIN OFFICE 41304 ALLRAN JR ALLRAN JR CONSULTAT 2 2 STELLA STELLA ION NEW/ESTAB PATIENT 60 MIN OFFICE 99309 CANDIDA WEIFuad OUTPATIEN 2 2 Aug T VISIT 25 MINUTES EMERGENCY 25229 NEERAJ DIAMOND DEPT 2 2 VISIT HIGH SEVERITY& THREAT FUNCJ OFFICE 27347 CANDIDA WEIFuad OUTPATIEN 2 2 Aug T VISIT 25 MINUTES HOSPITAL [facility] - [address] OUTPATIEN GISSEL T CO HOS [facility] - [address] OUTPATIEN GISSEL T CO HOS OFFICE 96989 CANDIDA WEIN OUTPATIEN 2 2 Aug T VISIT 25 MINUTES OFFICE 91879 [facility] OUTPATIEN 2 2 Aug T VISIT 25 MINUTES OFFICE 85026 BUD PHI BUD PHI CONSULTAT 2 2 ION NEW/ESTAB PATIENT 40 MIN OFFICE 53233 CANDIDA WEIN OUTPATIEN 2 2 Aug T VISIT 15 MINUTES OFFICE 82595 [facility] OUTPATIEN 2 2 Aug T VISIT 15 MINUTES HOSPITAL JACOBS - 2 2 [facility] - 2 2 [facility] T OFFICE 69909 HALEY DE LEON OUTPATIEN 2 2 MIHAI MIHAI T VISIT 25 MINUTES OFFICE 54331 MARTINEZ- MARTINEZ- OUTPATIEN 2 2 SHRUTHI SHRUTHI T VISIT NETO NETO 15 MINUTES OFFICE 38994 [facility] OUTPATIEN 2 2 Aug T VISIT 15 MINUTES OFFICE 49576 RICHARD GRE RICHARD GRE OUTPATIEN 2 2 T NEW 45 MINUTES [facility] [address] [facility] OFF[facility] 32596 [facility] OUTPATIEN 2 2 Aug T VISIT 15 MINUTES HOSPITAL ABBIE - 2 2 [facility] T OFFICE 31391 PETTEY PETTEY OUTPATIEN 2 2 JAM JAM T VISIT 15 MINUTES HOSPITAL ABBIE - 2 2 [facility] T OFFICE 28257 MARTINEZ- MARTINEZ- OUTPATIEN 2 2 SHRUTHI SHRUTHI T VISIT NETO NETO 15 MINUTES [facility] - [address] OUTPATIEN GISSEL T [facility] OFFICE 07117 TAMANDRIYN [facility]ERT[facility] OUTPATIEN 2 2 Aug T VISIT 15 MINUTES OFFICE 77657 TAMAREN TAMAREN OUTPATIEN 2 2 Aug T VISIT 25 MINUTES OFFICE 84008 PETTEY PETTEY OUTPATIEN 2 2 GIGI YU T VISIT 15 MINUTES [facility] - [address] OUTPATIEN G[facility] OFFICE 15688 PETTEY PETTEY OUTPATIEN 2 2 GIGI YU T NEW 20 MINUTES [facility] - [address] OUTPATIEN GISSEL T [facility]OS EMERGENCY 15871 KIERSTEN KIERSTEN 2 2 HEN HEN DEPARTMEN T VISIT MODERATE SEVERITY EMERGENCY 56799 [facility] [address] DEPARTMEN GISSEL T VISIT CO HOS HIGH/URGE NT SEVERITY OFFICE 59139 TAMANDRIYN [facility] OUTPATIEN 2 2 Aug T VISIT 25 MINUTES [facility] - [address] OUTPATIEN GISSEL T [facility] OFFICE 10211 TAMAREN SAVANNAHAREN OUTPATIEN 2 2 Aug T VISIT 15 MINUTES OFFICE 08185 TAMAREN SAVANNAHAREN OUTPATIEN 2 2 Aug T VISIT 15 MINUTES OFFICE 57759 TAMAREN TAMAREN OUTPATIEN 2 2 Aug T VISIT 25 MINUTES HOSPITAL GISSEL - 2 2 CO [facility] T OFFICE 44628 MARTINEZ- MARTINEZ- OUTPATIEN 2 2 SHRUTHI SHRUTHI T NEW 30 NETO NETO MINUTES HOSPITAL GISSEL - 1 1 CO OUTPATIEN HOSPITAL T OFFICE 93086 HALEY DE LEON OUTPATIEN 1 1 MIHAI MIHAI T VISIT 15 MINUTES HOSPITAL UNIVERSIT - 1 1 Y [facility] T OFFICE 44766 UNIVERSIT OUTPATIEN 1 1 Y T VISIT HOSPITAL 15 MINUTES OFFICE 61243 ARIANA DE LEON OUTPATIEN 1 1 CLINIC MIHAI T VISIT PSC 15 MINUTES OFFICE 95241 SMTIH SMITH OUTPATIEN 1 1 SOREN SOREN T VISIT 15 MINUTES OFFICE 78625 ARIANAARLEN WEIN OUTPATIEN 1 1 CLINIC [facility] T VISIT PSC 25 MINUTES HOSPITAL GISSEL - 1 1 [facility] T EMERGENCY 41247 GISSEL 1 1 [facility] T VISIT LIMITED/M INOR PROB EMERGENCY 14807 GISSEL 1 1 [facility] T VISIT MODERATE SEVERITY OFFICE 68727 SMITH SMITH OUTPATIEN [address] [facility] 45 MINUTES OFFICE 99370 [facility] TRA OUTPATIEN 1 1 [place] VISIT ORTHOPAED 15 ICS [facility] [place] - 1 1 [facility] T OFFICE 98292 BUFFALO BORDEN III OUTPATIEN 1 1 TRACE CALVIN T VISIT [facility] 15 [facility] [place] - 1 1 [facility] T OFFICE 29913 BUFFALO BORDEN III OUTPATIEN [address] [facility] 45 [facility] [place] - 1 1 [facility] [place] - 1 1 [facility] T OFFICE 87128 LOPEZ LOPEZ OUTPATIEN 1 1 SWAPNA SWAPNA T NEW 45 MINUTES OFFICE 27802 ARIANA NUÑEZLEBRON OUTPATIEN 1 1 CLINIC [place] T NEW 30 PSC MINUTES HOSPITAL GISSEL - 1 1 [facility] T EMERGENCY 21967 GISSEL 1 1 [facility] T VISIT LIMITED/M INOR PROB HOSPITAL GISSEL - 1 1 [facility] T OFFICE 56061 [facility]ENTR[facility] LEWIS TRA OUTPATIEN 1 1 [place] T VISIT ORTHOPAED 15 [facility] MINUTES OFFICE 40080 RINALDINI RINALDINI OUTPATIEN 1 1 MELINDA MELINDA T VISIT 15 MINUTES OFFICE 68776 [facility] TRA CON[facility]ULTAT 1 1 [place] ION ORTHOPAED NEW/ESTAB [facility] PATIENT 40 MIN OFFICE 18258 RINALDINI RINALDINI OUTPATIEN 1 1 MELINDA MELINDA T VISIT 15 MINUTES HOSPITAL ABBIE - 1 1 [facility] 10295 GISSEL YARBROUGH 1 1 CO [facility] T VISIT MODERATE SEVERITY OFFICE 30109 SIKHChetna JACINTO CONSULTAT 1 1 NEUROLOGY [facility] NEW/ESTAB SYLVIA PATIENT 80 MIN EMERGENCY 81985 GISSEL 1 1 [facility] T VISIT LOW/MODER SEVERITY HOSPITAL GISSEL - 1 1 [facility] T OFFICE 40864 RINALDINI RINALDINI OUTPATIEN 1 1 MELINDA MELINDA T VISIT 15 MINUTES OFFICE 45625 RINALDINI RINALDINI OUTPATIEN 1 1 MELINDA MELINDA T VISIT 15 MINUTES OFFICE 87109 KMSF BRYANT OUTPATIEN 1 1 NURSE GIGI T NEW 45 PRACTITIO MINUTES [facility] JACOBS - 0 0 [facility] T OFFICE 46965 RINALDINI RINALDINI OUTPATIEN 0 0 MELINDA MELINDA T VISIT 15 MINUTES OFFICE 84773 UNIVERSIT OUTPATIEN [address] [facility] 20 [facility] UNIVERSIT - 0 0 Y [facility] T OFFICE 92551 [place] CHAMBERS CONSULTAT 0 0 MEDICAL MAR ION SERV NEW/ESTAB FOUNDATIO PATIENT 60 MIN [facility] UNIVERSIT - 0 0 Y [facility] T OFFICE 41334 UNIVERSIT OUTPATIEN [address] [facility] 20 [facility] UNIVERSIT - 0 0 Y [facility] T OFFICE 42823 [place] ALVARADO CONSULTAT 0 0 MEDICAL HEA ION SERV NEW/ESTAB FOUNDATIO PATIENT 60 MIN OFFICE 40680 RINALDINI RINALDINI OUTPATIEN 0 0 MELINDA MELINDA T VISIT 15 MINUTES OFFICE 34188 RINALDINI RINALDINI OUTPATIEN 0 0 MELINDA MELINDA T VISIT 15 MINUTES HOSPITAL UNIVERSIT - 0 0 Y [facility] UNIVERSIT - 0 0 Y [facility] T OFFICE 66430 RINALDINI RINALDINI OUTPATIEN 0 0 MELINDA MELINDA T VISIT 10 MINUTES OFFICE 42610 RINALDINI RINALDINI OUTPATIEN 0 0 MELINDA MELINDA T VISIT 10 MINUTES EMERGENCY 46281 RINALDINI RINALDINI 0 0 MELINDA MELINDA DEPARTMEN T VISIT MODERATE SEVERITY OFFICE 44517 RINALDINI RINALDINI OUTPATIEN 0 0 MELINDA MELINDA T VISIT 25 MINUTES OFFICE 76126 RINALDINI RINALDINI OUTPATIEN 0 0 MELINDA MELINDA T VISIT 15 MINUTES EMERGENCY 65811 RINALDINI RINALDINI 0 0 MELINDA MELINDA DEPARTMEN T VISIT MODERATE SEVERITY OFFICE 68882 RINALDINI RINALDINI OUTPATIEN 0 0 , DEEPAK , DEEPAK T VISIT 15 MINUTES HOSPITAL JACOBS - 0 0 [facility] T OFFICE 27313 RINALDINI RINALDINI OUTPATIEN 0 0 , DEEPAK , DEEPAK T VISIT 15 MINUTES HOSPITAL GISSEL - 0 0 [facility] T OFFICE 17019 RINALDINI RINALDINI OUTPATIEN 0 0 , DEEPAK , DEEPAK T VISIT 15 MINUTES HOSPITAL GISSEL - 0 0 [facility] OFFICE 29411 RINALDINI RINALDINI OUTPATIEN 0 0 , DEEPAK , DEEPAK T VISIT 10 MINUTES OFFICE 32217 RINALDINI RINALDINI OUTPATIEN 0 0 , DEEPAK , EDEPAK T VISIT 15 MINUTES OFFICE 24972 RINALDINI RINALDINI OUTPATIEN 0 0 , DEEPAK , DEEPAK T VISIT 10 MINUTES HOSPITAL GISSEL - 0 0 [facility] T OFFICE 35626 RINALDINI RINALDINI OUTPATIEN 0 0 , DEEPAK , DEEPAK T VISIT 15 MINUTES OFFICE 68559 RINALDINI RINALDINI OUTPATIEN 0 0 , DEEPAK , DEEPAK T VISIT 15 MINUTES OFFICE 34508 RINALDINI RINALDINI OUTPATIEN 0 0 , DEEPAK , DEEPAK T VISIT 15 MINUTES OFFICE 57561 RINALDINI RINALDINI OUTPATIEN 0 0 , DEEPAK , DEEPAK T VISIT 15 MINUTES OFFICE 70369 RINALDINI RINALDINI OUTPATIEN 0 0 , DEEPAK , DEEPAK T VISIT 15 MINUTES OFFICE 47225 [facility] 9 9 STACIE ALARCON ION EYEHLTH & NEW/ESTAB SURG PSC PATIENT 40 MIN OFFICE 92206 RINALDINI RINALDINI OUTPATIEN 9 9 , DEEPAK , DEEPAK T VISIT 10 MINUTES OFFICE 45658 RINALDINI RINALDINI OUTPATIEN 9 9 , DEEPAK DEEPAK T VISIT 15 MINUTES OFFICE 55003 JENNIFER LLAMAS, OUTPATIEN 9 9 TRACEY ALVARADO Morenita T VISIT [facility] 25 . MINUTES HOSPITAL GISSEL - 9 9 CO [facility] T OFFICE 20744 GISSEL OUTPATIEN 9 9 CO T VISIT 5 [facility] GISSEL - 9 9 CO [facility] T OFFICE 37536 GISSEL OUTPATIEN 9 9 CO T VISIT 5 [facility] GISSEL - 9 9 CO [facility] T OFFICE 80267 RINALDINI RINALDINI OUTPATIEN 9 9 , DEEPAK , DEEPAK T VISIT 15 MINUTES EMERGENCY 30733 GISSEL 9 9 CO [facility] T VISIT LOW/MODER SEVERITY EMERGENCY 30291 RINALDINI RINALDINI 9 9 , DEEPAK , DEEPAK DEPARTMEN T VISIT MODERATE SEVERITY HOSPITAL GISSEL - 9 9 CO [facility] T OFFICE 28273 RINALDINI RINALDINI OUTPATIEN 9 9 , DEEPAK DEEPAK T VISIT 15 MINUTES HOSPITAL GISSEL - 9 9 CO [facility] T HOSPITAL GISSEL - 9 9 CO [facility] T EMERGENCY 75513 GISSEL 9 9 CO [facility] T VISIT LIMITED/M INOR PROB OFFICE 92218 GISSEL OUTPATIEN 9 9 CO T VISIT 5 HOSPITAL MINUTES OFFICE 04201 RINALDINI RINALDINI OUTPATIEN 9 9 , DEEPAK , DEEPAK T VISIT 25 MINUTES HOSPITAL GISSEL - 9 9 [facility] T OFFICE 38799 JENNIFER LLAMAS, OUTPATIEN [address] [facility] 45 [facility] MINUTES . OFFICE 49856 RINALDINI RINALDINI OUTPATIEN 9 9 , DEEPAK , DEEPAK T VISIT 15 MINUTES OFFICE 07367 RINALDINI RINALDINI OUTPATIEN 9 9 , DEEPAK , DEEPAK T VISIT 15 MINUTES HOSPITAL GISSEL - 9 9 [facility] T OFFICE 03898 RINALDINI RINALDINI OUTPATIEN 9 9 , DEEPAK , DEEPAK T VISIT 10 MINUTES OFFICE 62685 DARELL ADAMS 9 9 MEDICAL CLEMENTE [facility]/ESTAB FOUNDATIO PATIENT 40 MIN HOSPITAL GISSEL - 9 9 [facility] T OFFICE 06606 RINALDINI RINALDINI OUTPATIEN 9 9 , DEEPAK , DEEPAK T VISIT 10 MINUTES OFFICE 50150 RINALDINI RINALDINI OUTPATIEN 9 9 , DEEPAK , DEEPAK T VISIT 10 MINUTES OFFICE 74097 RINALDINI RINALDINI OUTPATIEN 9 9 , DEEPAK , DEEPAK T VISIT 15 MINUTES OFFICE 12733 RINALDINI RINALDINI OUTPATIEN 9 9 , DEEPAK , DEEPAK T VISIT 10 MINUTES OFFICE 67533 RINALDINI RINALDINI OUTPATIEN 9 9 , DEEPAK , DEEPAK T VISIT 10 MINUTES OFFICE 97858 RINALDINI RINALDINI OUTPATIEN 9 9 , DEEPAK , DEEPAK T VISIT 10 MINUTES HOSPITAL GISSEL - 9 9 [facility] T OFFICE 79503 RINALDINI RINALDINI OUTPATIEN 9 9 , DEEPAK , DEEPAK T VISIT 10 MINUTES HOSPITAL ABBIE - 9 9 [facility] 29763 RINALDINI RINALDINI OUTPATIEN 9 9 , DEEPAK , DEEPAK T VISIT 10 MINUTES OFFICE 36813 RINALDINI RINALDINI OUTPATIEN 9 9 , DEEPAK , DEEPAK T VISIT 10 MINUTES OFFICE 21200 RINALDINI RINALDINI OUTPATIEN 9 9 , DEEPAK , DEEPAK T VISIT 10 MINUTES OFFICE 12552 [place] INDY OUTPATIEN 9 9 [place] DIGGS T VISIT INTERNAL ROSITA F 15 MED MINUTES OFFICE 14836 [place] MITCHELL, OUTPATIEN 9 9 [place] VIKY T VISIT INTERNAL 15 MED MINUTES HOSPITAL GISSEL - 9 9 [facility] T OFFICE 02064 [place] JANIS, OUTPATIEN 9 9 [place] THOMAS Mila T NEW 30 INTERNAL MINUTES MED OFFICE 56876 RINALDINI RINALDINI OUTPATIEN 9 9 , DEEPAK , DEEPAK T VISIT 10 MINUTES OFFICE 17091 RINALDINI RINALDINI OUTPATIEN 9 9 , DEEPAK , DEEPAK T VISIT 15 MINUTES OFFICE 95023 [place] CAMARILLO, OUTPATIEN 9 9 MEDICAL DENNIS T VISIT SERV 15 FOUNDATIO MINUTES HOSPITAL GISSEL - 8 8 [facility] T HOSPITAL GISSEL - 8 8 [facility] T OFFICE 96942 RINALDINI RINALDINI OUTPATIEN 8 8 , DEEPAK , DEEPAK T VISIT 10 MINUTES HOSPITAL GISSEL - 8 8 [facility] T HOSPITAL ABBIE - 8 8 [facility] T OFFICE 61138 BUSHRA CAMARILLO, OUTPATIEN 8 8 MEDICAL DENNIS T VISIT SERV 25 FOUNDATIO MINUTES OFFICE 68976 RINALDINI RINALDINI OUTPATIEN 8 8 , DEEPAK , DEEPAK T VISIT 10 MINUTES OFFICE 65099 BUSHRA CAMARILLO, OUTPATIEN 8 8 MEDICAL DENNIS T VISIT SERV 25 FOUNDATIO MINUTES OFFICE 23800 RINALDINI RINALDINI OUTPATIEN 8 8 , DEEPAK , DEEPAK T VISIT 10 MINUTES EMERGENCY 80431 GISSEL 8 8 [facility] T VISIT LOW/MODER SEVERITY HOSPITAL GISSEL - 8 8 [facility] T EMERGENCY 78641 [facility] T VISIT LIMITED/M INOR PROB OFFICE 44889 RINALDINI RINALDINI OUTPATIEN 8 8 , DEEPAK , DEEPAK T VISIT 10 MINUTES OFFICE 30854 [facility] 8 8 MEDICAL YPARAG T VISIT SERV 15 FOUNDATIO MINUTES HOSPITAL ABBIE - 8 8 [facility] T OFFICE 74685 RINALDINI RINALDINI OUTPATIEN 8 8 , DEEPAK , DEEPAK T VISIT 10 MINUTES OFFICE 79464 RINALDINI RINALDINI OUTPATIEN 8 8 , DEEPAK , DEEPAK T VISIT 5 MINUTES OFFICE 83812 RINALDINI RINALDINI OUTPATIEN 8 8 , DEEPAK , DEEPAK T VISIT 10 MINUTES OFFICE 62329 RINALDINI RINALDINI OUTPATIEN 8 8 , DEEPAK , DEEPAK T VISIT 10 MINUTES OFFICE 73226 [facility] 15 MINUTES [facility]
--- OUTSIDE RECORDS SUMMARY | 2016-12-14 12:48 | External Medical Summary Rpt ---
Demographics Preferred Language Nicaraguan Marital Status Unknown Pentecostal Affiliation Unknown Race Unknown Ethnic Group Unknown Author Author , Organization [employer] Address Unknown Phone Unavailable Purpose Continuity of Care Document - through 2016 Immunization No patient found.
--- OUTSIDE RECORDS SUMMARY | 2016-12-14 12:48 | External Medical Summary Rpt ---
Demographics Preferred Language Welsh Marital Status Unknown Yazidism Affiliation Unknown Race Unknown Ethnic Group Unknown Author Author , Organization [employer] Address Unknown Phone Unavailable Purpose Continuity of Care Document - through 2016 Immunization No patient found.
--- OUTSIDE RECORDS SUMMARY | 2016-12-14 13:15 | External Medical Summary Rpt ---
Author Author , Organization [employer] Address Unknown Phone Unavailable Care Team Providers Care Inventory Specialist Manager Name Role Phone COLBY PETERSON, COLBY PETERSON Unavailable Unavailable [facility] ALLRAN JR STELLA, ALLRAN Unavailable Unavailable JR STELLA ALLRAN JR STELLA, ALLRAN Unavailable Unavailable JR STELLA GHANAIAN AMBULETT & Unavailable Unavailable AMBULANC, GHANAIAN AMBULETT & AMBULANC GHANAIAN AMBULETT & Unavailable Unavailable AMBULANC, GHANAIAN AMBULETT & AMBULANC KELLOGG CORNELIO, KELLOGG CORNELIO Unavailable Unavailable TRACY ALEXANDER MD, PSC, Unavailable Unavailable TRACY ALEXANDER MD, PSC [facility] SMITH SOREN, SMITH Unavailable [...] INC WILL ALL, WILL ALL Unavailable Unavailable [facility] Unavailable Unavailable [facility] Unavailable Unavailable [facility] BECKY ANDREW, Unavailable Unavailable BECKY ANDREW BUX [...] ENOC CAR, ENOC Unavailable Unavailable CAR [facility], Unavailable Unavailable [facility] [place] Unavailable [facility], Unavailable Unavailable [facility] HUNTER CALVIN, HUNTER Unavailable Unavailable LUCIANA FUNG, Unavailable Unavailable LUCIANA HUNTER JOHN C, Unavailable Unavailable KORTNEY HUNTER TURNER ESTEFANY, TURNER ESTEAFNY Unavailable Unavailable [facility] MAHNAZ JR SOREN, MAHNAZ Unavailable Unavailable JR SOREN MAHNAZ JR SOREN, MAHNAZ Unavailable Unavailable JR SOREN TYRONE COURTNEY, Unavailable Unavailable TYRONE COURTNEY TYRONE, KATJA, Unavailable Unavailable TYRONE, KATJA [facility] # [id number], Unavailable Unavailable [facility] # [id number] HALEY HOLM, Unavailable Unavailable HALEY DE LEON [...] ROLON HECK JAM, Unavailable Unavailable HECK JAM [facility], Unavailable Unavailable [facility], Unavailable Unavailable [facility] Unavailable Unavailable AMBULANCE, [facility] Unavailable Unavailable HOSPITAL, [facility] Unavailable Unavailable [facility], [facility] CARRASQUILLO NAN, CARRASQUILLO Unavailable Unavailable NAN MOI AIYANA, MOI Unavailable Unavailable AIYANA ELIZABET YARON, ELIZABET Unavailable Unavailable YARON ELIZABET YARON, ELIZABET Unavailable Unavailable YARON CLINT ANA, CLINT Unavailable Unavailable ANA [facility] Unavailable Unavailable HOSPITA, [facility] Unavailable Unavailable HOSPITA, [facility] PENG HAS, PENG Unavailable Unavailable HAS [...] Unavailable VIKYMARTITA LUCAS, JOLIE LUCAS Unavailable Unavailable [facility], Unavailable Unavailable [facility] MALONE AIYANA, MALONE AIYANA [...] LAR SANKET LAR, SANKET Unavailable Unavailable L[facility] Un[facility], [facility] Unavailable Unavailable MEDICAL G, [facility], [facility] Unavailable [...] HOLDINGS, LAB [facility], Unavailable Unavailable [facility] [employer] [facility] & Unavailable Unavailable [facility] & Unavailable Unavailable [facility] Unavailable Unavailable [facility] AM, [facility]ORY Unavailable Unavailable [facility], [facility]ORATORY [facility], Unavailable Unavailable [facility] A[facility]LY TRACEY LLAMAS, Unavailable Unavailable TRACEY LLAMAS CHAIDEZ NHAN, CHAIDEZ Unavailable Unavailable NHAN CHAIDEZ NHAN, CHAIDEZ Unavailable Unavailable NHAN KEO ANT, KEO ANT Unavailable Unavailable NILOSN, GERMAN, Unavailable Unavailable NILSON, GERMAN DOUGLAS SABA, DOUGLAS Unavailable Unavailable SABA DEMETRA ALEXANDER MD PSC, Unavailable Unavailable DEMETRA ALEXANDER MD PSC GIOVANNY HAM, GIOVANNY HAM Unavailable Unavailable GIOVANNY HAM, GIOVANNY HAM Unavailable Unavailable JESSE GRE, Unavailable Unavailable JESSE GRE JESSE GRE, Unavailable Unavailable JESSE GRE [facility] Unavailable Unavailable SERVICES, [facility] Unavailable Unavailable ASSOCIAT, [facility] ROSITA PUTNAM JR Unavailable Unavailable F, ROSITA PUTNAM JR [facility] Un[facility] Unavailable [facility], [facility] Unavailable Unavailable [facility], [facility] RICHARD GRE, RICHARD GRE Unavailable Unavailable RICHARD GRE, RICHARD GRE Unavailable [facility]available [facility] Un[facility], Unavailable Unavailable [facility], Unavailable Unavailable [facility] Unavailable Unavailable CLINIC, [facility] ARZATE SOREN, ARZATE SOREN Unavailable Unavailable MADHURI IBR, MADHURI Unavailable Unavailable IBR MADHURI IBR, MADHURI Unavailable Unavailable IBR MADHURI JAM, MADHURI Unavailable Unavailable JAM MOTALIB MOH, MOTALIB Unavailable Unavailable [facility], Unavailable Unavailable [facility] CLEMENTE PATEL OWEN, [...] [facility] Unavailable Unavailable PHYSICIAN SERVI, [facility] JODIE CORNELIO, JODIE Unavailable Unavailable [...] Unavailable ANN MOL, ANN MOL Unavailable Unavailable [facility], Unavailable Unavailable [facility] MANDY LIAM, Unavailable Unavailable MANDY LIAM MANDY [...] W/RADICULOP ATHY LUMB RGN C73 MALIGNANT 11-09-2016 [facility] NEOPLASM OF PHYSICIANS THYROID GROUP GLAND J449 CHRONIC 11-09-2016 [facility] OBSTRUCTIVE PHYSICIANS PULMONARY GROUP DISEASE UNS K5900 CONSTIPATIO 11-09-2016 [facility] N PHYSICIANS UNSPECIFIED GROUP R140 ABDOMINAL 11-09-2016 [facility] DISTENSION PHYSICIANS GASEOUS GROUP R609 EDEMA 11-09-2016 [facility] UNSPECIFIED PHYSICIANS GROUP E785 HYPERLIPIDE 11-06-2016 [facility] WIL [facility] UNSPECIFIED INC R110 NAUSEA 11-06-2016 [facility] INC R5383 OTHER 11-06-2016 [facility] FATIGUE [facility] INC M4726 OTH 10-30-2016 [facility] SPONDYLOSIS [facility] INC W/RADICULOP ATHY LUMBAR REGION E039 HYPOTHYROID 09-19-2016 [facility] ISM [facility] UNSPECIFIED INC E538 DEFICIENCY 09-19-2016 [facility] OF OTHER MEM HOSP SPECIFIED B INC GROUP VITAMINS Z02410 PAIN IN 09-02-2016 [facility] RIGHT FOOT RADIOLOGY ASSOCIAT [id number] SPRAIN 09-02-2016 [facility] TARSAL N EMERGENCY LIGAMENT RT PHYS FOOT INITIAL ENCOUNTER [id number] UNSPECIFIED 09-02-2016 [facility] RIGHT FOOT ASSOCIAT INITIAL ENCOUNTER [id number] FALL SAME 09-02-2016 [facility] LEVL SLIP N EMERGENCY TRIP W/O PHYS SUB STRIK OBJ INIT H56286 OTHER LONG 08-28-2016 [facility] TERM [facility] CURRENT INC DRUG THERAPY R911 SOLITARY 08-16-2016 [facility] PULMONARY [facility] NODULE HOLDINGS G8929 OTHER 08-01-2016 DEMETRA ALEXANDER CHRONIC PSC PAIN M069 RHEUMATOID 08-01-2016 DEMETRA ALEXANDER ARTHRITIS PSC UNSPECIFIED F12829 PAIN IN 07-20-2016 [facility] LEFT KNEE [facility] M7989 OTHER 07-13-2016 [place] SPECIFIED [facility]ICAL SOFT TISSUE IMAGING ASS DISORDERS R079 CHEST PAIN 06-13-2016 [facility] UNSPECIFIED [facility]IOLOGY ASSOCIAT G5601 CARPAL 05-04-2016 [facility] TUNNEL HEALTH SYNDROME MEDICAL G RIGHT UPPER LIMB J49786 TRIGGER 05-04-2016 [facility] THUMB RIGHT HEALTH THUMB MEDICAL G E780 PURE 04-28-2016 [facility] R0602 SHORTNESS 04-28-2016 [facility] RADIOLOGY ASSOCIAT Y40855 ENCOUNTER 04-28-2016 [facility] EXAMINATION Z720 TOBACCO USE 04-28-2016 [facility] Z5181 ENCOUNTER 04-25-2016 [facility] THERAPEUTIC DRUG LEVEL MONITORING M654 RADIAL 04-24-2016 [facility] STYLOID [facility] TENOSYNOVIT MEDICAL G IS DE QUERVAIN G5641 CAUSALGIA 04-19-2016 SE[facility] OF RIGHT [facility] UPPER LIMB PLLC R201 HYPOESTHESI 04-19-2016 SEAN A OF SKIN [facility] PLLC H6523 CHRONIC 04-11-2016 [facility] SEROUS PHYSICIANS OTITIS GROUP MEDIA BILATERAL H6690 OTITIS 04-11-2016 [facility] MEDIA PHYSICIANS UNSPECIFIED GROUP UNSPECIFIED EAR H9203 OTALGIA 04-11-2016 [facility] BILATERAL PHYSICIANS GROUP J309 ALLERGIC 04-11-2016 [facility] RHINITIS PHYSICIANS UNSPECIFIED GROUP R202 PARESTHESIA 04-10-2016 [facility] HEALTH MEDICAL G J209 ACUTE 04-03-2016 [facility] BRONCHITIS N EMERGENCY UNSPECIFIED PHYS J440 COPD WITH 04-03-2016 [facility] ACUTE LOWER N EMERGENCY PHYS RESPIRATORY INFECTION J441 CHRONIC 04-03-2016 [facility] OBSTRUCTIVE N EMERGENCY PULMONARY PHYS DZ W/EXACERBAT ION J8489 OTHER 04-03-2016 [facility] SPECIFIED RADIOLOGY INTERSTITIA ASSOCIAT L PULMONARY DISEASES R000 TACHYCARDIA 04-03-2016 [facility] UNSPECIFIED ASSOCIAT R05 COUGH 04-03-2016 [facility] K219 GASTRO-ESOP 02-10-2016 [facility] [...] DEFICIENCY MAR[facility] UNSPECIFIED HOLDINGS A029 SALMONELLA 12-20-2015 [facility] INFECTION PHYSICIANS UNSPECIFIED GROUP K6389 OTHER 12-20-2015 [facility] SPECIFIED PHYSICIANS DISEASES OF GROUP INTESTINE E876 HYPOKALEMIA 12-15-2015 [facility] N PHYSICIAN SERVI I10 ESSENTIAL 12-15-2015 [facility] PRIMARY N PHYSICIAN HYPERTENSIO SERVI N K529 NONINFECTIV 12-15-2015 [facility] E N PHYSICIAN GASTROENTER SERVI ITIS & COLITIS UNS E871 HYPO-OSMOLA 12-14-2015 [facility] LITY AND N EMERGENCY HYPONATREMI PHYS A R112 NAUSEA WITH 12-14-2015 [facility] VOMITING N EMERGENCY UNSPECIFIED PHYS M5126 OTH 11-23-2015 [facility]B [facility] RAL DISC INC DISPLACEMEN T LUMBAR RGN M5136 OT 11-23-2015 [facility] INTERVERTEB [facility] RAL DISC INC DEGEN LUMBAR REGION M5416 RADICULOPAT 11-23-2015 [facility] HY LUMBAR [facility] REGION INC M545 LOW BACK 10-01-2015 [place] [facility] ASS I2510 ASHD TAKOTNA 09-28-2015 [facility] CORONARY N EMERGENCY ARTERY W/O PHYS ANGINA PECTORIS R0789 OTHER CHEST 09-28-2015 [facility] PAIN N EMERGENCY PHYS B029 ZOSTER 08-26-2015 [facility] WITHOUT PHYSICIANS COMPLICATIO GROUP NS E781 PURE 07-16-2015 [facility] HYPERGLYCER [facility] IDEMIA INC M7541 IMPINGEMENT 07-15-2015 [facility] SYNDROME PHYSICIANS OF RIGHT GROUP SHOULDER M7542 IMPINGEMENT 07-15-2015 [facility] SYNDROME PHYSICIANS OF LEFT GROUP SHOULDER I209 ANGINA 07-12-2015 [facility] PECTORIS [facility] UNSPECIFIED INC G2581 RESTLESS 07-05-2015 [facility] LEGS PHYSICIANS SYNDROME GROUP R14080 ASHD TAKOTNA 07-01-2015 [facility] COR ARTREY [facility] W/UNS INC ANGINA PECTORIS I2582 CHRONIC 07-01-2015 [facility] TOTAL [facility] OCCLUSION INC OF CORONARY ARTERY P83736 PRIMARY 06-29-2015 [place] OSTEOARTHRI MEDICAL TIS LEFT IMAGING ASS SHOULDER N80736 PAIN IN 06-29-2015 [facility] RIGHT [facility] SHOULDER IMAGING ASS R70408 PAIN IN 06-29-2015 [place] LEFT MEDICAL SHOULDER IMAGING ASS 490 BRONCHITIS 04-21-2015 [facility] NOT PHYSICIANS SPECIFIED GROUP ACUTE OR CHRONIC 72777 OBSTRUCTIVE 04-17-2015 [facility] CHRONIC N EMERGENCY BRONCHITIS PHYS WITH EXACERBATIO N 06662 SHORTNESS 04-17-2015 [facility] OF BREATH RADIOLOGY ASSOCIAT 7862 COUGH 04-17-2015 [facility] 07725 CHEST PAIN 04-17-2015 [facility] UNSPECIFIED RADIOLOGY ASSOCIAT 64289 PAINFUL 04-17-2015 [facility] RESPIRATION [facility] 10882 OTHER CHEST 04-17-2015 [facility] PAIN N EMERGENCY PHYS 1769 KAPOSIS 04-12-2015 [facility] SARCOMA OF MAR[facility] UNSPECIFIED HOLDINGS SITE 47453 DEGEN 03-29-2015 TRACY ALEXANDER LUMBAR/LUMB , PSC OSACRAL INTERVERTEB RAL DISC 7244 THORACIC/RAUL 03-29-2015 DONNELL DASILVA MD, PSC NEURITIS/RA DICULITIS UNSPEC 47331 UNS 03-09-2015 [facility] GASTRITIS&G HOSPITAL ASTRODUODIT IS W/O MENTION HEMORR 15285 ABDOMINAL 03-09-2015 [facility] PAIN RIGHT RADIOLOGY LOWER ASSOCIAT QUADRANT 2113 BENIGN 02-22-2015 [facility] NEOPLASM OF [facility] 4550 INTERNAL 02-22-2015 [facility] HEMORRHOIDS [facility] WITHOUT HOSPITAL MENTION COMP 49595 OTHER 02-22-2015 [facility] ESOPHAGITIS [facility] 12063 DUODENITIS 02-22-2015 [facility] MENTION OF HOSPITAL HEMORRHAGE 7019 UNSPECIFIED 02-22-2015 [facility] HYPERTROPHI [facility] C&ATROPHIC CONDITION SKIN 10418 RESTLESS 02-15-2015 [facility] LEGS PHYSICIANS SYNDROME GROUP 462 ACUTE 02-06-2015 [facility]Y PHYS 5180 PULMONARY 02-06-2015 [facility] COLLAPSE [facility]IOLOGY ASSOCIAT 27334 ACUTE 02-04-2015 [facility] GASTRITIS HOSP WITHOUT MENTION OF HEMORRHAGE V7651 SPECIAL 02-04-2015 [facility] SCREENING HOSP FOR MALIGNANT NEOPLASMS COLON 496 CHRONIC 01-08-2015 [facility] NEC 82315 UNSPEC 12-29-2014 [facility] EPILEPSY PHYSICIANS WITHOUT GROUP MENTION INTRACT EPILEPSY 93469 ABDOMINAL 12-29-2014 [facility] PAIN, PHYSICIANS EPIGASTRIC GROUP 2724 OTHER AND 12-15-2014 [facility] UNSPECIFIED PHYSICIANS GROUP HYPERLIPIDE WIL 7140 RHEUMATOID 12-15-2014 [facility] ARTHRITIS PHYSICIANS GROUP 75096 NAUSEA 12-15-2014 [facility] ALONE PHYSICIANS GROUP 4660 ACUTE 11-24-2014 [facility] BRONCHITIS N EMERGENCY PHYS 07784 OBST 11-24-2014 [facility] CHRONIC HOSPITAL BRONCHITIS W/ACUTE BRONCHITIS 22267 WHEEZING 11-24-2014 [facility] N EMERGENCY PHYS 3829 UNSPECIFIED 11-16-2014 [facility] OTITIS PHYSICIANS MEDIA GROUP 7823 EDEMA 11-16-2014 [facility] PHYSICIANS GROUP 13246 ESOPHAGEAL 11-11-2014 [facility] REFLUX PHYSICIANS GROUP 43451 SOLITARY 11-05-2014 [facility] PULMONARY RADIOLOGY NODULE ASSOCIAT 2720 PURE 11-03-2014 BELEN Quiros HYPERCHOLES [place] TEROLEMIA PSC 94960 NAUSEA WITH 11-03-2014 [facility] Quiros VOMITING [place] PSC 515 POSTINFLAMM 10-06-2014 [facility] ATORY RADIOLOGY PULMONARY ASSOCIAT FIBROSIS 17180 FEVER 10-06-2014 [facility] UNSPECIFIED HOSPITAL 2689 UNSPECIFIED 10-05-2014 [place] [facility]IT[facility] D [facility]ICAL DEFICIENCY CLINIC 7866 SWELLING, 10-05-2014 [place], [place] MEDICAL LUMP IN CLINIC CHEST 89113 OSTEOARTHRO 09-15-2014 [facility] UNSPEC SERV WHETHER FOUNDATION GEN/LOC UNSPEC SITE 18280 EFFUSION OF 09-15-2014 [facility] LOWER LEG SERV JOINT FOUNDATION 64115 PAIN IN 09-15-2014 [place] [facility] FOREARM [facility] 44117 PAIN IN 09-15-2014 [facility] HAND SERV [facility] 75670 PAIN IN 09-15-2014 [place] [facility] LOWER LEG FOUNDATION 86415 PAIN IN 09-15-2014 [facility] SERV MULTIPLE FOUNDATION SITES 7242 LUMBAGO 09-15-2014 [facility] 7384 ACQUIRED 09-15-2014 [facility] SPONDYLOLIS SERV THESIS FOUNDATION 47639 OTHER 09-15-2014 [facility] DYSPNEA AND SERV [facility]OUNDATION RESPIRATORY ABNORMALITI ES 7937 NONSPC ABN 09-15-2014 [facility] FINDNG RAD SERV & OTH EXM FOUNDATION MUSCULSKELT L SYS 42935 OTHER&UNSPE 09-15-2014 [facility] C SERV NONSPECIFIC [facility]OUNDATION IMMUNOLOGIC AL FINDINGS 1749 MALIGNANT 08-18-2014 BELEN Quiros NEOPLASM OF [place] BREAST PSC UNSPECIFIED SITE 2749 GOUT, 08-18-2014 BELEN Quiros UNSPECIFIED [place] PSC 193 MALIGNANT 07-21-2014 [facility] NEOPLASM OF REGIONAL THYROID MEDICAL HORACIO GLAND 01417 PAIN IN 07-15-2014 [facility], SITE MEDICAL CLINIC UNSPECIFIED 1719 MALIG 07-08-2014 BELEN Quiros NEOPLASM [place] CNCTV&OTH PSC SOFT TISSUE SITE UNSPEC 2449 UNSPECIFIED 07-08-2014 BELEN JARAMILLO MD HYPOTHYROID PSC ISM 7213 LUMBOSACRAL 07-08-2014 [facility] SPONDYLOSIS ASSOCIAT WITHOUT MYELOPATHY 7245 UNSPECIFIED 07-08-2014 [facility] 23744 DIAB W/O 06-19-2014 [facility] COMP TYPE DIAGNOSTICS II/UNS NOT STATED UNCNTRL 4019 UNSPECIFIED 06-19-2014 [facility] ESSENTIAL [facility]AGNOSTICS HYPERTENSIO N 7224 DEGENERATIO 06-04-2014 GIOVANNY RICHARDSON N OF CERVICAL INTERVERTEB RAL DISC V5869 LONG-TERM 05-29-2014 GIOVANNY RICHARDSON (CURRENT) USE OF OTHER MEDICATIONS 24320 INCI HERNIA 05-20-2014 [facility] MENTION HOSPITAL OBSTRUCTION /GANGRENE V7284 UNSPECIFIED 05-14-2014 [facility] PRE-OPERATI VE EXAMINATION 2662 OTHER 05-13-2014 [facility] B-COMPLEX CLINIC DEFICIENCIE S 2811 OTHER 05-13-2014 [facility] VITAMIN B12 CLINIC DEFICIENCY ANEMIA 7881 DYSURIA 04-28-2014 [facility] CL[facility]IC 02242 PAIN IN 04-03-2014 [facility] JOINT, CLINIC SHOULDER REGION V163 FAMILY 03-23-2014 TOS[facility]IA Vera HISTORY OF MALIGNANT NEOPLASM OF BREAST V7612 OTHER 03-23-2014 [facility] SCREENING MEM HOS[facility] MAMMOGRAM INC 7291 UNSPECIFIED 03-13-2014 GIOVANNY RICHARDSON MYALGIA AND MYOSITIS 2692 UNSPECIFIED 03-05-2014 [facility] VITAMIN [facility] DEFICIENCY HOLDINGS 2879 UNSPECIFIED 03-05-2014 [facility] HEMORRHAGIC HOLDINGS CONDITIONS 46016 OTHER 03-05-2014 [facility] MALAISE AND MARVA FATIGUE HOLDINGS 7808 GENERALIZED 02-26-2014 [facility] HYPERHIDROS HOSPITA IS V011 CONTACT 02-26-2014 [place] WITH OR COMMUNITY EXPOSURE TO HOSPITA TUBERCULOSI S 62971 OTHER 02-17-2014 [facility] NONSPECIFIC ABNORMAL FINDING OF LUNG FIELD 2169 BENIGN 02-04-2014 LABORATORY NEOPLASM OF CORPORATION SKIN SITE OF AM UNSPECIFIED 82767 UNSPECIFIED 01-30-2014 [facility] VIRAL CLINIC WARTS 1105 DERMATOPHYT 01-30-2014 [facility] OSIS OF THE CLINIC BODY 4619 ACUTE 01-30-2014 [facility] SINUSITIS, CLINIC UNSPECIFIED 226 BENIGN 12-31-2013 ANNMARIE KARINA NEOPLASM OF THYROID GLANDS 2409 GOITER, 12-31-2013 MALONE AIYANA UNSPECIFIED 2419 UNSPECIFIED 12-31-2013 ANNMARIE KARINA NONTOXIC NODULAR GOITER 7856 ENLARGEMENT 12-31-2013 CH[facility] NHAN OF LYMPH NODES 59406 NONSPECIFIC 12-31-2013 [place] [facility] ABNORMAL [facility] 2410 NONTOXIC 12-18-2013 [facility] UNINODULAR CLINIC GOITER 21211 OBSTRUCTIVE 12-18-2013 [facility] APNEA 5531 UMB HERNIA 12-09-2013 [facility] WITHOUT MENTION OBSTRUCTION /GANGRENE 5781 BLOOD IN 12-04-2013 [facility] HOSPITAL 91068 PEPTC ULCR 12-03-2013 [facility] LAR UNS ACUT/CHRN W/O HEMOR PERF/OBST 57048 OTHER 11-26-2013 [facility] DISEASES OF LUNG NOT ELSEWHERE CLASSIFIED 5718 OTHER 11-23-2013 [facility] CHRONIC NONALCOHOLI C LIVER DISEASE 39404 SPASM OF 11-23-2013 [facility] 7891 HEPATOMEGAL 11-23-2013 [facility] Y 8471 THORACIC 11-23-2013 [facility] SPRAIN AND STRAIN 7295 PAIN IN 11-18-2013 [facility], SOFT PHARMACIST IN CHARGE TISSUES OF [facility] HOS E8889 UNSPECIFIED 11-18-2013 [facility] BRENDA GIOVANNA 7804 DIZZINESS 11-03-2013 [facility] AND HOME GIDDINESS MEDICAL EQUIPME 00820 HELICOBACTE 10-29-2013 [facility] R [facility]I [facility]IN[facility] INFECTION 5990 URINARY 10-29-2013 [facility] TRACT CLINIC INFECTION SITE NOT SPECIFIED 66785 ABDOMINAL 10-29-2013 [facility] PAIN, CLINIC UNSPECIFIED SITE 21113 ABDOMINAL 10-25-2013 [facility] PAIN OTHER SPECIFIED SITE 38605 OTHER 10-25-2013 [facility] INJURY OF HOSPITAL ABDOMEN 4659 ACUTE URIS 10-14-2013 [facility] OF CLINIC UNSPECIFIED SITE 2462 CYST OF 08-29-2013 [facility] 2469 UNSPECIFIED 08-29-2013 [facility] DISORDER LIAM OF THYROID 85821 UNSPECIFIED 08-29-2013 [facility] LIAM SENSORINEUR AL HEARING LOSS 46969 SENSORINEUR 08-29-2013 [facility] AL HEARING LIAM LOSS BILATERAL 2459 UNSPECIFIED 07-24-2013 [facility] LIAM THYROIDITIS 51969 HYPOCALCEMI 06-28-2013 M[facility] IBR A 486 PNEUMONIA, 06-28-2013 [facility] IBR ORGANISM UNSPECIFIED 05854 LEUKOCYTOSI 06-27-2013 KILEY STELLA S UNSPECIFIED V103 PERSONAL 06-27-2013 [facility] HISTORY OF MALIGNANT NEOPLASM OF BREAST 4928 OTHER 06-23-2013 [facility] EMPHYSEMA 38263 UNSPECIFIED 06-18-2013 [facility] N 04695 OTHER ACUTE 06-09-2013 [facility] PAIN HOSPITAL 0088 INTESTINAL 06-05-2013 [facility] INFECTION DUE TO OTHER ORGANISM NEC V4589 OTHER 06-05-2013 [facility] POSTSURGICA L STATUS OTHER V8801 ACQUIRED 06-05-2013 [facility] ABSENCE OF BOTH CERVIX AND UTERUS 52591 TB OF 05-14-2013 SHELLEY ANDREW SKIN&SUBCUT ANEOUS CELLULAR TISSUE-OTH TEST 5739 UNSPECIFIED 05-05-2013 [facility] DISORDER [facility] OF LIVER INC 81043 ABDOMINAL 05-05-2013 [place] [facility] SERV GENERALIZED [facility]OUNDATION 4011 ESSENTIAL 03-25-2013 ARTHUR SOREN HYPERTENSIO N, BENIGN 06278 ASTHMA, 03-25-2013 [facility] UNSPECIFIED CONFUCIANISM , HOSP UNSPECIFIED STATUS 91868 HEMATURIA 03-25-2013 [facility] JAYCOB UNSPECIFIED V1251 PERSONAL 03-25-2013 [facility] HISTORY, CONFUCIANISM VENOUS HOSP THROMBOSIS AND EMBOLISM V5866 LONG-TERM 03-25-2013 [facility] USE OF CONFUCIANISM [facility] 5952 OTHER 03-13-2013 [facility] DIGGS CHRONIC SOREN CYSTITIS 30896 UNSPECIFIED 03-13-2013 [facility] DIGGS SOREN ARTHROPATHY SITE UNSPECIFIED 6259 UNSPEC 03-06-2013 [facility] SYMPTOM ASSOC W/FEMALE GENITAL ORGANS 96977 UNSPECIFIED 03-06-2013 [facility] RETENTION OF URINE 50600 OBSTRUCTIVE 03-04-2013 [facility] WITHOUT EXACERBAT 7243 SCIATICA 03-04-2013 [facility] 01111 OTHER 03-04-2013 [facility] GLUCOSE 6271 POSTMENOPAU 02-28-2013 [facility] 6101 DIFFUSE 02-25-2013 [facility] CYSTIC MASTOPATHY 6272 SYMPTOMATIC 02-25-2013 [facility] MENOPAUSAL/ FEMALE CLIMACTERIC STATES 28456 SENILE 02-25-2013 [facility] OSTEOPOROSI S V7231 ROUTINE 02-25-2013 [facility] KE[facility] GYNECOLOGIC AL EXAMINATION V1279 PERSONAL 02-17-2013 [facility] DIGESTIVE DISEASE 1120 CANDIDIASIS 02-05-2013 [facility] TER[facility] OF MOUTH 18418 OTHER 01-29-2013 [facility]RONIC [facility] 485 BRONCHOPNEU 01-29-2013 C[facility] TERAN MONIA ORGANISM UNSPECIFIED 5569 UNSPECIFIED 01-29-2013 [facility] TER[facility] ULCERATIVE COLITIS 5641 IRRITABLE 01-29-2013 [facility] BOWEL [facility] 5693 HEMORRHAGE 01-29-2013 YOSELIN NURY OF RECTUM IGN AND ANUS 82510 DISORDER OF 01-29-2013 [facility] BONE [facility] UNSPECIFIED 02203 DIARRHEA 01-29-2013 C[facility] TERAN 58032 REFLUX 12-09-2012 [facility] ESOPHAGITIS 2411 NONTOXIC 11-20-2012 ELIZABET YARON MULTINODULA R GOITER 7936 NONSPEC ABN 11-18-2012 [facility] FINDNG RAD & OTH EXAM ABDOMINAL AREA 4439 UNSPECIFIED 10-10-2012 NOEMI DIGGS PERIPHERAL THO VASCULAR DISEASE 75511 STOMATITIS 09-24-2012 SAVANNAHANDRIYFuad PARUL AND MUCOSITIS UNSPECIFIED 28542 UNSPECIFIED 09-12-2012 [facility] CONJUNCTIVI TIS 2352 NEOPLASM 09-09-2012 [facility] STOMACH INTEST&RECT 4553 EXTERNAL 09-09-2012 [facility] HEMORRHOIDS WITHOUT MENTION COMP 5533 DIAPHRAGMAT 09-09-2012 [facility] DAMARIS W/O MENTION OBSTRUCTION /GANGREN 5780 HEMATEMESIS 09-09-2012 [facility] 7934 NONSPECIFIC 09-09-2012 [facility] ABN FINDING RAD & OTH EXAM GI TRACT 9594 INJURY 08-28-2012 [facility] OTHER AND RADIOLOGY UNSPECIFIED ASSOCIAT HAND EXCEPT FINGER 55272 ABDOMINAL 08-19-2012 [facility] PAIN, LEFT LOWER QUADRANT 3559 MONONEURITI 08-14-2012 [facility] UNSPECIFIED SITE 4359 UNSPECIFIED 08-14-2012 [facility] TRANSIENT LIAM CEREBRAL ISCHEMIA 21973 DYSPHAGIA 08-14-2012 [facility] V7260 LABORATORY 07-22-2012 [facility] UNSPECIFIED 16237 OTHER 07-12-2012 [facility]CTION[facility] JUS DISORDERS OF INTESTINE 5409 ACUTE 07-11-2012 [facility] APPENDICITI AMBULETT & S WITHOUT AMBULANC MENTION PERITONITIS 5699 UNSPECIFIED 07-11-2012 [facility] DISORDER RADIOLOGY OF ASSOCIAT INTESTINE 7222 DISPLCMT 07-10-2012 [facility], INTERVERT PHARMACIST IN CHARGE DISC SITE [facility] UNS W/O HOS MYELOPATHY 7859 OTHER 07-10-2012 [facility] SYMPTOMS PHARMACIST IN CHARGE INVOLVING [facility] CARDIOVASCU HOS LAR SYSTEM 10570 OTHER [facility] NASAL ASSOCIAT CAVITY AND SINUSES 7820 DISTURBANCE 06-20-2012 [facility] SENSATION V711 OBSERVATION 06-20-[facility] FOR [facility] SUSPECTED ASSOCIAT MALIGNANT NEOPLASM 217 BENIGN 06-19-2012 THAD[facility] MIN NEOPLASM OF BREAST 6100 SOLITARY 06-19-2012 JODIE CORNELIO CYST OF BREAST 6102 FIBROADENOS 06-19-2012 [facility] BREAST 6108 OTHER 06-19-2012 [facility] BENIGN MAMMARY DYSPLASIAS V6709 FOLLOW-UP 06-19-2012 JODIE CORNELIO EXAMINATION FOLLOWING OTHER SURGERY 7840 HEADACHE 06-11-2012 [facility] 3343 OTHER 06-10-2012 [facility] TER[facility] CEREBELLAR ATAXIA 3532 CERVICAL 06-10-2012 [facility] ROOT LESIONS NOT ELSEWHERE CLASSIFIED 32725 VISION 06-10-2012 C[facility] TERAN IMPAIR BOTH EYES IMPAIR LEVEL NFS 4371 OTH 06-08-2012 [facility], GENERALIZED PHARMACIST IN CHARGE ISCHEMIC [facility] CEREBROVASC HOS ULAR DISEASE 84640 OTHER 06-08-2012 [facility], ALTERATION PHARMACIST IN CHARGE OF [facility] CONSCIOUSNE HOS SS V1588 PERSONAL 06-08-2012 [facility], HISTORY OF PHARMACIST IN CHARGE FALL [facility] [place] HOS 99849 OCCL&STENOS 06-[facility] MX&BILAT RADIOLOGY PRECERBRL ASSOCIAT ART W/O INFARCT 7930 NONSPECIFIC 05-28-[facility] ABN FNDNG RADIOLOGY RAD & OTH ASSOCIAT EXM SKULL & HEAD 3688 OTHER 05-24-2012 [facility], SPECIFIED PHARMACIST IN CHARGE VISUAL [facility] DISTURBANCE HOS S 37307 HEAD 05-24-2012 [facility], INJURY, PHARMACIST IN CHARGE UNSPECIFIED [facility] HOS 7873 FLATULENCE 05-01-2012 [facility], ERUCTATION PHARMACIST IN CHARGE AND GAS [facility] PAIN HOS 89280 ING DAMARIS 04-24-2012 CANDIDA TERAN W/O MENTION OBST/GANGRE N UNILAT/[place] [address] UNSPEC 04-16-2012 ALLRAN JR [facility] STELLA DAMARIS W/O MENTION OBST/GANGRE N E9278 OTH 04-10-2012 PICK[facility] DARA OVEREXERT&S TRENUOUS&RE PETITIVE MVMNTS/LOAD S 55855 ABDOMINAL 04-01-2012 CANDIDA TERAN PAIN RIGHT UPPER QUADRANT 69848 ABDOMINAL 04-01-2012 CANDIDA TERAN PAIN, PERIUMBILIC 93765 NEOPLASM OF 03-26-2012 [facility] BEHAVIOR [place] [address] INSOMNIA 03-21-2012 CANDIDA TERAN UNSPECIFIED 99842 OTHER 03-14-2012 CANDIDA TERAN CHRONIC ALLERGIC CONJUNCTIVI TIS 8470 NECK SPRAIN 01-01-2012 [facility] 34762 EARLY 12-29-2011 [facility] 3531 LUMBOSACRAL 12-28-2011 [facility] PLEXUS LESIONS E9352 OTH 12-28-2011 [facility] OPIATES&REL NARCOTICS CAUS ADVRS EFF TX USE V5883 ENCOUNTER 12-28-2011 [facility] FOR THERAPEUTIC DRUG MONITORING V7109 OBSERVATION 12-28-2011 [facility] OF OTHER LABORATORIE SUSPECTED S OF [place] MENTAL CONDITION 6279 UNSPECIFIED 12-21-2011 [facility] MENOPAUSAL& POSTMENOPAU EARNEST DISORDER 47472 HYPERSOMNIA 11-21-2011 [facility], WITH SLEEP PHARMACIST IN CHARGE APNEA [facility] UNSPECIFIED HOS 82597 OSTEOARTHRO 11-07-2011 CANDIDA TERAN S UNSPEC WHETHER GEN/LOC SHLDR REGION 09193 OSTEOARTHRO 11-07-2011 CANDIDA TERAN SIS UNSPEC WHETHER GEN/LOC LOWER LEG 7177 CHONDROMALA 11-06-2011 PETTE[facility] JAM ISIS OF [place] 61718 PLICA 11-06-2011 [facility] SYNDROME 70626 CHONDROMALA 11-03-2011 [facility] J[facility] ISIS 7871 HEARTBURN 10-25-2011 JUAN-CO NKLIN NETO 33308 UNSPECIFIED 10-04-2011 [facility], SLEEP PHARMACIST IN CHARGE APNEA [facility] HOS 5368 DYSPEPSIA&O 09-25-2011 [facility], THER SPEC PHARMACIST IN CHARGE DISORDERS [facility] FUNCTION HOS STOMACH 5589 OTH&UNSPEC 09-25-2011 [facility], NONINFECTIO PHARMACIST IN CHARGE US [facility]OS ITIS&COLITI S 2114 BENIGN 09-19-2011 PATHOLOGY & NEOPLASM OF CYTOLOGY RECTUM AND LAB ANAL CANAL 7821 RASH AND 09-14-2011 TAMLEBRON TERAN OTHER NONSPECIFIC SKIN ERUPTION 5789 UNSPECIFIED 08-23-2011 [facility] HEMORRHAGE NKLIN NETO OF GASTROINTES TINAL TRACT 80426 SWELLING OF 08-08-2011 [facility] 37930 CONTUSION 08-08-2011 [facility] 9593 INJURY 08-08-2011 [facility] OTHER&UNSPE RADIOLOGY CIFIED ASSOCIAT [employer]&W[place] ST 788[address] REGULAR 07-03-2011 [facility] ASTIGMATISM GRE 7092 SCAR 05-31-2011 [facility] AND FIBROSIS OF SKIN 26490 INCONCLUSIV 05-31-2011 [place] [facility] E MAMMOGRAM SERV [...] [facility] [place] TUNNEL [facility]AEDIC SYNDROME S PLC 74659 UNSPEC 04-07-2011 [facility] [place] DISORDERS ORTHOPAEDIC BURSAE&TEND S PLC ONS SHOULDER REGION 591 HYDRONEPHRO 03-24-2011 [facility] SIS SWAPNA 5951 CHRONIC 03-24-2011 [facility] L CYSTITIS 03229 MICROSCOPIC 03-24-2011 [facility] 7906 OTHER 03-17-2011 [facility] ABNORMAL [facility] CHEMISTRY 10235 UNS ADVRS 03-17-2011 [facility] EFF UNS RX [facility]INAL&B HOLDING IOLOGICAL SBSTNC 95737 INCOMPLETE 02-17-2011 [facility] BLADDER SWAPNA EMPTYING 81201 CYSTOCELE 01-27-2011 [facility] WITHOUT HOSPITAL MENTION UTERINE PROLAPSE MIDLN 6256 FEMALE 01-27-2011 [facility] STRESS HOSPITAL INCONTINENC E 20889 PRUNE BELLY 01-18-2011 [facility] 85551 CHRONIC 01-18-2011 [facility] FATIGUE [facility] SYNDROME HOLDING 5939 UNSPECIFIED 01-17-2011 [place] DISORDER RADIOLOGY OF KIDNEY ASSOCIAT AND URETER 25554 GROSS 01-17-2011 [facility] 5982 POSTOPERATI 01-13-2011 [facility] VE URETHRAL SWAPNA STRICTURE 28309 MIXED 01-11-2011 [facility] INCONTINENC HOSPITAL E URGE AND STRESS 06122 URGE 01-10-2011 [facility] INCONTINENC SWAPNA E 06540 COMPLETE 12-20-2010 [facility] [place] RUPTURE OF ORTHOPAEDIC ROTATOR S PLC CUFF 7919 OTHER 12-13-2010 [facility] NONSPECIFIC HOSPITAL FINDING EXAMINATION OF URINE 01976 TRIGGER 12-05-2010 [facility] [place] FINGER ORTHOPAEDIC S PLC 7102 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 V1581 PERS HX 11-01-2010 [facility] NONCOMPLIAN MELINDA CE W/MED TX PRS [facility]ZARDS HLTH 18931 SPRAIN AND 10-20-2010 [employer] STRAIN OF UNSPECIFIED SITE OF WRIST 7226 DEGENERATIO 10-18-2010 R[facility]AL[facility]INI N MELINDA INTERVERTEB RAL DISC SITE UNSPEC 7231 CERVICALGIA 09-26-2010 [facility] 37119 UNSPECIFIED 09-21-2010 [facility] VIRAL HOSPITAL INFECTION IN CCE & UNS SITE 40338 DEHYDRATION 09-21-2010 [facility]ITAL 3384 CHRONIC 09-21-2010 [facility] SYLVIA 59387 SPRAIN AND 09-20-2010 [facility] STRAIN OF MELINDA UNSPECIFIED SITE OF HAND V571 OTHER 07-20-2010 [facility] PHYSICAL [facility]OSPITAL THERAPY 48082 UNSPECIFIED 07-13-2010 [place] [facility] ABNORMAL SERV MAMMOGRAM FOUNDATIO 60950 LUMP OR 06-27-2010 [place] [facility] M[place] IN SERV BREAST FOUNDATIO 18153 MAMMOGRAPHI 06-21-2010 [facility] MICROCALCIF ICATION 5272 SIALOADENIT 06-16-2010 R[facility] IS MELINDA 66430 OTHER 06-16-2010 [facility] ABNORMAL MELINDA FINDING RADIOLOGICA L EXAM BREAST 68059 MASTODYNIA 05-24-2010 [facility] 9160 HIP THI 05-19-2010 [facility] LEG&ANK MELINDA ABRASION/FR ICION BURN W/O INF 05435 VOLUME 04-12-2010 [facility] DEPLETION MELINDA UNSPECIFIED 11708 DIVERTICULI 03-25-2010 [facility] TIS OF MELINDA COLON 91051 DIVERTICULO 03-17-2010 [facility] SIS OF MELINDA COLON 5931 HYPERTROPHY 03-17-2010 [facility] OF KIDNEY RADIOLOGY ASSOCIAT 5968 OTHER 03-17-2010 [facility] SPECIFIED RADIOLOGY DISORDERS ASSOCIAT OF BLADDER 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 EARNEST STATUS V8281 SPECIAL 07-23-2009 DORIAN OJEDA M.D.P.S.C. OSTEOPOROSI S 78312 SQUAMOUS 06-07-2009 [place] INST FOR BLEPHARITIS EYEHLTH & SURG PSC 95998 UNSPECIFIED 06-07-2009 [place] INST FOR TEAR FILM EYEHLTH & INSUFFICIEN SURG PSC CY 3569 UNSPEC 05-19-2009 JENINFER HEREDIT&IDI KWADWO ALVARADO M.D.P.S.C. PERIPHERAL NEUROPATHY V570 CARE 05-13-2009 [facility] INVOLVING HOSPITAL BREATHING EXERCISES V5862 LONG-TERM 05-13-2009 [facility] (CURRENT) HOSPITAL USE OF ANTIBIOTICS 39047 CHRONIC 05-05-2009 [facility], OBSTRUCTIVE DEEPAK ASTHMA WITH EXACERBATIO N 4580 ORTHOSTATIC 05-04-2009 [facility] H[facility]PITAL HYPOTENSION 95928 OTHER 05-04-2009 [facility] CONVULSIONS HOSPITAL 7892 SPLENOMEGAL 05-04-2009 [facility] PSC 6968 UNSPECIFIED 04-11-2009 [facility] DISORDER 9134 ELB 04-11-2009 [facility] FORARM&WRST HOSPITAL INSECT BITE NONVENOMOUS W/O INF 8059 OPN FX UNS 03-15-2009 RINALDINI, PART VERT DEEPAK COLUMN W/O SP CRD INJURY 88101 PAIN IN 03-09-2009 KATJA C JOINT, TYRONE ANKLE AND FOOT 43266 SPONDYLOSIS 01-18-2009 [place] [facility] UNSPEC SERV SITE W/O FOUNDATIO MENTION MYELOPATHY 54868 PATHOLOGIC 01-07-2009 [facility] FRACTURE OF HOSPITAL VERTE[place]RAE 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 REGION SPRAIN&STRA IN V5427 AFTERCARE 01-07-2009 [facility] HEALING [facility]PITAL PATHOLOGIC FRACTURE VERTEBRAE 4658 ACUTE URIS 12-15-2008 RINALDINI, OF OTHER DEEPAK MULTIPLE SITES 01322 DISPLCMT 11-30-2008 [facility] DISC W/O PSC MYELOPATHY 54592 STRESS 11-30-2008 [facility] FRACTURE OF HOSPITAL OTHER BONE 81593 ATHEROSCLER 11-06-2008 [facility] EXTREMITIES UNSPEC 514 PULMONARY 09-28-2008 [facility] HYPOSTASIS PSC 2165 BENIGN 07-31-2008 PATHOLOGY & NEOPLASM OF CYTOLOGY SKIN OF LAB TRUNK EXCEPT SCROTUM E9064 BITE OF 07-31-2008 PATHOLOGY & NONVENOMOUS CYTOLOGY ARTHROPOD LAB 7079 CHRONIC 07-30-2008 [facility] ULCER OF HOSPITAL UNSPECIFIED SITE 7099 UNSPECIFIED 07-30-2008 RINALDINI, DISORDER DEEPAK OF SKIN&SUBCUT ANEOUS TISSUE 7210 CERVICAL 07-16-2008 [facility] SPONDYLOSIS [facility] WITHOUT ASSOCIATES MYELOPATHY PSC V1272 PERSONAL 07-13-2008 [place] [facility] HISTORY OF SERV COLONIC FOUNDATIO POLYPS 26277 OTHER 06-18-2008 RINALDINI, SPECIFIED DEEPAK CIRCULATORY SYSTEM DISORDERS 66392 UNSPECIFIED 05-02-2008 [facility] ESOPHAGITIS 32041 POLYURIA 04-09-2008 [facility] 80398 OBESITY, 11-04-2007 [facility] UNSPECIFIED [facility] 91764 GEN 11-04-2007 RINTORSTENINI, OSTEOARTHRO DEEPAK SIS INVOLVING MULTIPLE SITES V074 HORMONE 08-23-2007 [facility] V6700 FOLLOW-UP 08-23-2007 WOMEN'S EXAMINATION HEALTH FOLLOWING [...] ve LO 37 20 20 61 CA WA 50 17 17 16 RE AM 5 [...] 80 0- 1- 00 07 L ve PA 21 20 20 62 CA DE 61 [...] AR TA MA BL CY ET #2 PA 00 03 03 30 30 00 TO [...] 80 1- 4- 00 07 L ve PA 20 20 20 61 CA DE 81 17 17 00 RE 0 40 20 PH AR MG MA CY TA BL #2 ET ES 65 03 03 30 30 00 TO CI 86 -0 -2 .0 00 TA ti TA 20 1- 4- 00 07 L ve LO 37 20 20 60 CA WA 50 17 17 36 RE AM 5 [...] CA ZA 11 17 17 36 RE WA 0 31 IN PH E AR 10 [...] DR CY 40 #2 MG CA P PA 00 02 03 30 30 00 TO [...] CA ZA 11 17 17 36 RE WA 0 31 IN PH E AR 10 MA CY MG #2 TA BL ET FU 00 01 02 30 30 00 TO RO 78 -3 -2 .0 00 TA ti SE 11 1- 4- 00 07 L ve PA 81 20 20 61 CA DE 81 [...] ve LO 37 20 20 60 CA WA 50 17 17 36 RE AM 5 [...] CA ZA 11 17 17 36 RE WA 0 31 IN PH E AR 10 [...] 11 3- 3- 00 07 L ve PA 81 20 20 60 CA DE 81 [...] ve LO 37 20 20 60 CA WA 50 17 17 36 RE AM 5 [...] 1- 1- 00 IS 24 RE ve WA 50 20 20 LE N AM 91 [...] 7- 7- 00 IS 20 RE ve WA 50 20 20 LE N AM 91 [address] LEROY HB UG T R 40 CO MP MG AN Y TA BL ET CI 57 09 09 0 2. 4 CA 68 TA Ac TA 66 -0 -0 00 RL 56 MA ti LO 40 1- 1- 0 IS 20 RE ve WA 50 20 20 LE N AM 88 [address] LEROY HB UG T R 20 CO MP MG AN Y TA BL ET WA 37 08 08 3 56 28 CA [...] 0 14 7 CA 68 CA Ac WA 71 -1 -1 .0 RL 47 BA [...] CO MP TA AN BL Y ET WA 00 07 07 2 30 30 CA [...] AR la 6 MA bl CY e WA 37 05 06 1 56 28 CA [...] 0 14 7 CA 68 CA Ac WA 71 -1 -1 .0 RL 24 BA [...] 0 14 7 CA 68 CA Ac WA 71 -2 -2 .0 RL 17 BA [...] bl UG e CO MP AN Y WA 37 05 05 1 56 28 CA [...] 0 30 30 CA 68 TA Ac WA 14 -1 -1 .0 RL 12 MA [...] TA CO BL MP ET AN Y WA 37 01 03 1 56 28 CA [...] kylie UG e CO MP AN Y WA 37 01 01 1 56 28 CA [...] AR la 0 MA bl CY e WA 00 11 12 3 6. 15 SO 35 No Ac OV 08 -2 -2 70 PE 86 t ti EN 51 4- 3- 0 RS 13 Av ve TI 13 20 20 ai L 20 10 10 FA la HF 1 PA bl A LY e 90 DR MC [...] ai 31 10 10 FA la 4 PA bl LY e DR UG WA 00 11 11 3 6. 15 SO 35 No Ac OV 08 -2 -2 70 PE 86 t ti EN 51 4- 4- 0 RS 13 Av ve TI 13 20 20 ai L 20 10 10 FA la HF 1 PA bl A LY e 90 DR CAMPBELL [...] ai 31 10 10 FA la 4 PA bl LY e DR UG WA 00 09 10 2 6. 15 SO 35 No Ac OV 08 -2 -3 70 PE 29 t ti EN 51 4- 0- 0 RS 23 Av ve TI 13 20 20 ai L 20 10 10 FA la HF 1 PA bl A LY e 90 DR CAMPBELL UG G IN PEREZ LE R WA 37 09 10 2 56 28 SO 35 No Ac IL 00 -2 -3 .0 PE 32 t ti OS 00 9- 0- 00 RS 59 Av ve EC 45 20 20 ai 50 10 10 FA la OT 4 PA bl C LY e [address] [...] 0 6. 3 SO 35 No Ac WA 78 -2 -2 00 PE 52 t ti AZ 11 1- 1- 0 RS 37 Av ve OL 06 20 20 ai AM 10 10 10 FA la 5 PA bl 0. LY e 25 DR MG UG TA BL ET 00 08 10 3 14 20 SO 35 No Ac 59 -2 -1 .6 PE 02 t ti 70 4- 4- 99 RS 41 Av ve 01 20 20 ai 31 10 10 FA la 4 PA bl LY e DR UG WA 00 09 10 2 6. 15 SO 35 No Ac OV 08 -2 -1 70 PE 29 t ti EN 51 4- 4- 0 RS 23 Av ve TI 13 20 20 ai L 20 10 10 FA la HF 1 PA bl A LY e 90 DR MC UG G IN PEREZ LE R EF 00 10 10 3 30 12 SO 35 No Ac FE 00 -1 -1 .0 PE 46 t ti XO 80 4- 4- 00 RS 63 Av ve R 83 20 20 ai XR 72 10 10 FA la 2 PA bl [address] MG UG CA PS UL E ZO 00 10 10 0 30 30 SO 35 No Ac LP 09 -1 -1 .0 PE 46 t ti ID 30 4- 4- 00 RS 96 Av ve EM 07 20 20 ai 30 10 10 FA la TA 1 PA bl RT LY e RA TE DR 5 UG MG TA BL ET WA 37 09 09 2 56 28 SO 35 No Ac IL 00 -2 -2 .0 PE 32 t ti OS 00 9- 9 00 RS 59 Av ve EC 45 20 20 ai 50 10 10 FA la OT 4 PA bl C LY e [address] UG MG TA BL ET 00 09 09 0 10 5 SO 35 No Ac 14 -2 -2 .0 PE 29 t ti 31 7- 7- 00 RS 73 Av ve 47 20 20 ai 70 10 10 FA la 1 PA bl LY e DR UG WA 00 09 09 2 6. 15 SO 35 No Ac OV 08 -2 -2 70 PE 29 t ti EN 51 4- 4- 0 RS 23 Av ve TI 13 20 20 ai L 20 10 10 FA la HF 1 PA bl A LY e 90 DR UG [...] ai 13 10 10 FA la 8 PA bl LY e DR UG GA 68 09 09 0 60 30 SO 35 No Ac BA 46 -1 -1 .0 PE 21 t ti PE 20 6- 6- 00 RS 39 Av ve NT 12 20 20 ai IN 60 10 10 FA la 5 PA bl 60 LY e [address] UG TA BL ET 00 08 09 3 14 20 SO 35 No Ac 59 -2 -1 .6 PE 02 t ti 70 4- 3- 99 RS 41 Av ve 01 20 20 ai 31 10 10 FA la 4 PA bl LY e DR UG CI 55 09 09 0 14 7 SO 35 No Ac WA 11 -0 -0 .0 PE 10 t ti OF 10 2- 2- 00 RS 08 Av ve LO 12 20 20 ai XA 70 10 10 FA la CI 1 PA bl N LY e HC L DR 50 UG 0 MG TA B 00 08 08 0 14 7 SO 35 No Ac 14 -2 -2 .0 PE 02 t ti 31 4- 4- 00 RS 39 Av ve 47 20 20 ai 70 10 10 FA la 1 PA bl LY e DR UG WA 00 08 08 5 30 30 SO 35 No Ac EM 04 -2 -2 .0 PE 02 t ti AR 61 4- 4- 00 RS 42 Av ve IN 10 20 20 ai 28 10 10 FA la 0. 1 PA bl 62 LY e [address] UG TA BL ET WA 37 05 08 3 56 28 SO 34 No Ac IL 00 -1 -1 .0 PE 31 t ti OS 00 8- 9- 00 RS 15 Av ve EC 45 20 20 ai 50 10 10 FA la OT 4 PA bl C LY e [address] UG MG TA BL ET 00 07 08 3 14 15 SO 34 No Ac 59 -2 -1 .6 PE 81 t ti 70 8- 9 99 RS 21 Av ve 01 20 20 ai 31 10 10 FA la 4 PA bl LY e DR UG HY 00 08 08 0 40 10 SO [address] 18 -1 -1 .0 PE 94 t ti OX 50 3- 3- 00 RS 12 Av ve YZ 61 20 20 ai IN 30 10 10 FA la E 5 PA bl PA LY e M 25 DR UG MG CA P DI 00 08 08 0 30 15 SO 34 No Ac PH 37 -1 -1 .0 PE 94 t ti EN 80 3- 3- 00 RS 13 Av ve OX 41 20 20 ai YL 51 10 10 FA la AT 0 PA bl E- LY e AT RO DR P UG 2. 5- 0. 02 5 MARKS 00 08 08 0 14 14 SO 34 No Ac LF 60 -1 -1 .0 PE 92 t ti AM 35 1- 1- 00 RS 64 Av ve ET 78 20 20 ai HO 12 10 10 FA la XA 8 PA bl ZO LY e LE -T DR MP UG DS TA BL ET PE 00 07 08 1 59 1 SO 34 No Ac RM 47 -1 -0 .0 PE 71 t ti ET 25 5- 5- 00 RS 19 Av ve HR 24 20 20 ai IN 26 10 10 FA la 7 PA bl 1% LY e LO DR TI UG ON 00 07 07 3 14 15 SO 34 No Ac 59 -2 -2 .6 PE 81 t ti 70 8 8 99 RS 21 Av ve 01 20 20 ai 31 10 10 FA la 4 PA bl LY e DR UG AR 24 07 07 4 15 10 SO 34 No Ac TI 38 -2 -2 .0 PE 80 t ti FI 50 7- 7- 00 RS 49 Av ve CI 00 20 20 ai AL 60 10 10 FA la 5 PA bl TE LY e AR S DR UG OP S TR 50 07 07 4 15 30 SO 34 No Ac AZ 11 -2 -2 .0 PE 80 t ti OD 10 7- 7- 00 RS 50 Av ve ON 43 20 20 ai E 30 10 10 FA la 50 3 PA bl LY e MG DR TA UG BL ET WA 37 05 07 3 56 28 SO 34 No Ac IL 00 -1 -2 .0 PE 31 t ti OS 00 8- 6- 00 RS 15 Av ve EC 45 20 20 ai 50 10 10 FA la OT 4 PA bl C LY e [address] UG MG TA BL ET WA 00 06 07 2 6. 15 SO 34 No Ac OV 08 -2 -2 70 PE 54 t ti EN 51 1- 6- 0 RS 81 Av ve TI 13 20 20 ai L 20 10 10 FA la HF 1 PA bl A LY e 90 DR VOGEL G IN PEREZ LE R PE 00 07 07 1 59 1 SO 34 No Ac RM 47 -1 -1 .0 PE 71 t ti ET 25 5- 5- 00 RS 19 Av ve HR 24 20 20 ai IN 26 10 10 FA la 7 PA bl 1% LY e LO DR CHAR [...] 0 UM 00 10 10 FA 5 PA EL LY LE N DR Demetrice UG TI 00 05 07 2 60 30 SO 34 FL Ac ZA 18 -0 -0 .0 PE 19 IN ti NI 50 4- 9- 00 RS 71 CH ve DI 03 20 20 UM NE 45 10 10 FA 1 PA EL HC LY LE L N 2 DR Demetrice MG UG TA BL ET 00 03 07 5 14 15 SO 33 No Ac 59 -1 -0 .6 PE 76 t ti 70 2- 6- 99 RS 71 Av ve 01 20 20 ai 31 10 10 FA la 4 PA bl LY e DR UG WA 00 03 07 3 30 30 SO 33 No Ac EM 04 -1 -0 .0 PE 76 t ti AR 61 2- 6- 00 RS 72 Av ve IN 10 20 20 ai 28 10 10 FA la 0. 1 PA bl 62 LY e [address] UG TA BL ET WA 00 06 07 2 6. 15 SO 34 No Ac OV 08 -2 -0 70 PE 54 t ti EN 51 1- 6- 0 RS 81 Av ve TI 13 20 20 ai L 20 10 10 FA la HF 1 PA bl A LY e 90 DR VOGEL G IN PEREZ LE R WA 00 06 06 2 6. 15 SO 34 No Ac OV 08 -2 -2 70 PE 54 t ti EN 51 1- 1- 0 RS 81 Av ve TI 13 20 20 ai L 20 10 10 FA la HF 1 PA bl A LY e 90 DR MC UG G IN PEREZ LE R 00 03 06 5 14 15 SO 33 No Ac 59 -1 -1 .6 PE 76 t ti 70 2- 6- 99 RS 71 Av ve 01 20 20 ai 31 10 10 FA la 4 PA bl LY e DR UG WA 37 05 06 3 56 28 SO 34 No Ac IL 00 -1 -1 .0 PE 31 t ti OS 00 8- 6- 00 RS 15 Av ve EC 45 20 20 ai 50 10 10 FA la OT 4 PA bl C LY e [address] UG MG TA BL ET CE 68 06 06 0 28 7 SO 34 No Ac PH 18 -1 -1 .0 PE 49 t ti AL 00 4- 4- 00 RS 94 Av ve EX 12 20 20 ai IN 20 10 10 FA la 2 PA bl 50 LY [address] [...] 0 UM 00 10 10 FA 5 PA EL LY LE N DR Demetrice UG WA 00 03 06 3 30 30 SO 33 No Ac EM 04 -1 -0 .0 PE 76 t ti AR 61 2- 8- 00 RS 72 Av ve IN 10 20 20 ai 28 10 10 FA la 0. 1 PA bl 62 LY e [address] NIKKY TA BL ET 00 03 05 5 14 15 SO 33 No Ac 59 -1 -2 .6 PE 76 t ti 70 2- 7 99 RS 71 Av ve 01 20 20 ai 31 10 10 FA la 4 PA bl LY e DR UG WA 00 03 05 3 6. 15 SO 33 No Ac OV 08 -1 -2 70 PE 76 t ti EN 51 2- 7- 0 RS 73 Av ve TI 13 20 20 ai L 20 10 10 FA la HF 1 PA bl A LY e 90 DR CAMPBELL UG G IN PEREZ LE R AD 00 05 05 2 60 30 SO 34 No Ac VA 17 -2 -2 .0 PE 38 t ti IR 30 7- 7- 00 RS 21 Av ve 69 20 20 ai 25 60 10 10 FA la 0- 0 PA bl [address] HARRISON UG US CL 00 05 05 0 30 30 SO 34 No Ac ON 37 -2 -2 .0 PE 36 t ti ID 80 5- 5- 00 RS 78 Av ve IN 15 20 20 ai E 21 10 10 FA la HC 0 PA bl L LY e 0. 1 DR MG UG TA BL ET AZ 00 05 05 0 6. 5 SO 34 No Ac IT 78 -1 -1 00 PE 31 t ti HR 11 8- 8- 0 RS 14 Av ve OM 49 20 20 ai YC 66 10 10 FA la IN 8 PA bl LY e [address] MG UG TA BL ET WA 37 05 05 3 56 28 SO 34 No Ac IL 00 -1 -1 .0 PE 31 t ti OS 00 8- 8- 00 RS 15 Av ve EC 45 20 20 ai 50 10 10 FA la OT 4 PA bl C LY e [address] [...] ai 31 10 10 FA la 4 PA bl LY e DR UG WA 00 03 05 3 30 30 SO 33 No Ac EM 04 -1 -0 .0 PE 76 t ti AR 61 2- 5- 00 RS 72 Av ve IN 10 20 20 ai 28 10 10 FA la 0. 1 PA bl 62 LY e [address] UG TA BL ET WA 00 03 05 3 6. 15 SO 33 No Ac OV 08 -1 -0 70 PE 76 t ti EN 51 2- 5- 0 RS 73 Av ve TI 13 20 20 ai L 20 10 10 FA la HF 1 PA bl A LY e 90 DR MC UG G IN PEREZ LE R TI 00 05 05 2 60 30 SO 34 FL Ac ZA 18 -0 -0 .0 PE 19 IN ti NI 50 4- 4- 00 RS 71 CH ve DI 03 20 20 UM NE 45 10 10 FA 1 PA EL HC LY LE L N 2 [...] 80 10 10 FA la HC 1 PA bl L LY e 10 DR MG UG TA BL ET AL 24 04 04 1 24 24 SO 34 No Ac LE 38 -1 -1 .0 PE 03 t ti RG 50 4- 4- 00 RS 24 Av ve Y 47 20 20 ai 25 96 10 10 FA la 2 PA bl MG LY e TA DR BL UG ET WA 37 01 04 3 56 28 SO 33 No Ac IL 00 -0 -0 .0 PE 25 t ti OS 00 7- 8- 00 RS 48 Av ve EC 45 20 20 ai 50 10 10 FA la OT 4 PA bl C LY e [address] UG MG TA BL ET 00 03 04 5 14 15 SO 33 No Ac 59 -1 -0 .6 PE 76 t ti 70 2- 8- 99 RS 71 Av ve 01 20 20 ai 31 10 10 FA la 4 PA bl LY e DR UG WA 00 03 04 3 6. 15 SO 33 No Ac OV 08 -1 -0 70 PE 76 t ti EN 51 2- 8- 0 RS 73 Av ve TI 13 20 20 ai L 20 10 10 FA la HF 1 PA bl A LY e 90 DR MC UG G IN PEREZ LE R VE 68 04 04 3 30 30 SO 33 No Ac NL 38 -0 -0 .0 PE 93 t ti AF 20 2- 2- 00 RS 99 Av ve AX 02 20 20 ai IN 10 10 10 FA la E 1 PA bl HC LY e L 75 DR UG MG TA BL ET TR 00 04 04 3 30 30 SO 33 No Ac IC 07 -0 -0 .0 PE 94 t ti OR 46 2- 2- 00 RS 00 Av ve 12 20 20 ai 48 29 10 10 FA la 0 PA bl MG LY e TA DR BL UG ET 00 09 03 11 36 30 YO 21 No Ac 18 -0 -3 0. UR 04 t ti 57 3- 1- 00 2 Av ve 32 20 20 0 PH ai 26 09 10 AR la 0 MA bl CY e CI 55 03 03 0 10 10 SO 33 No Ac WA 11 -1 -1 .0 PE 76 t ti OF 10 2- 2- 00 RS 68 Av ve LO 12 20 20 ai XA 70 10 10 FA la CI 1 PA bl N LY e HC L DR 50 UG 0 MG TA B 00 03 03 5 14 15 SO 33 No Ac 59 -1 -1 .6 PE 76 t ti 70 2- 2- 99 RS 71 Av ve 01 20 20 ai 31 10 10 FA la 4 PA bl LY e DR UG WA 00 03 03 3 30 30 SO 33 No Ac EM 04 -1 -1 .0 PE 76 t ti AR 61 2- 2- 00 RS 72 Av ve IN 10 20 20 ai 28 10 10 FA la 0. 1 PA bl 62 LY e [address] UG TA BL ET WA 00 03 03 3 6. 15 SO 33 No Ac OV 08 -1 -1 70 PE 76 t ti EN 51 2- 2- 0 RS 73 Av ve TI 13 20 20 ai L 20 10 10 FA la HF 1 PA bl A LY e 90 DR MC UG G IN PEREZ LE R EY 00 03 03 0 12 30 SO 33 No Ac E 90 -1 -1 0. PE 76 t ti WA 45 2- 2- 00 RS 76 Av ve SH 37 20 20 0 ai 72 10 10 FA la SO 0 PA bl RAUL LY e TI ON DR UG WA 37 01 03 3 56 28 SO 33 No Ac IL 00 -0 -0 .0 PE 25 t ti OS 00 7- 8- 00 RS 48 Av ve EC 45 20 20 ai 50 10 10 FA la OT 4 PA bl C LY e [address] UG MG TA BL ET 00 03 03 1 90 30 SO 33 LA Ac 59 -0 -0 .0 PE 66 RS ti 10 2- 2- 00 RS 66 ON ve 54 20 20 00 10 10 FA LA 5 PA UR LY EN K DR UG 00 02 02 00 14 15 SO 33 No Ac 59 -1 -2 .6 PE 59 t ti 70 9- 6- 99 RS 45 Av ve 01 20 20 ai 31 10 10 FA la 4 PA bl LY e DR UG MU 63 02 02 00 40 10 SO 33 No Ac CI 82 -0 -2 .0 PE 50 t ti NE 40 8- 6- 00 RS 40 Av ve X 00 20 20 ai ER 83 10 10 FA la 4 PA bl 60 LY e [address] UG TA BL ET WA 37 01 02 01 56 28 SO 33 No Ac IL 00 -0 -2 .0 PE 25 t ti OS 00 7- 6- 00 RS 48 Av ve EC 45 20 20 ai 50 10 10 FA la OT 4 PA bl C LY e [address] SHER MG TA BL ET WA 00 02 02 00 6. 15 SO 33 No Ac OV 08 -1 -2 70 PE 59 t ti EN 51 9- 6- 0 RS 44 Av ve TI 13 20 20 ai L 20 10 10 FA la HF 1 PA bl A LY e 90 DR VOGEL G IN PEREZ LE R AZ 64 02 02 00 6. 5 SO 33 No Ac IT 67 -0 -2 00 PE 50 t ti HR 90 8- 6- 0 RS 39 Av ve OM 96 20 20 ai YC 10 10 10 FA la IN 5 PA bl LY e [address] UG TA BL ET 00 12 02 01 90 30 SO 33 LA Ac 59 -3 -1 .0 PE 19 RS ti 10 0- 1- 00 RS 65 ON ve 54 20 20 00 09 10 FA LA 5 PA UR LY EN K DR NIKKY 00 05 02 06 36 30 YO 18 No Ac 18 -2 -1 0. UR 98 t ti 57 2- 1- 00 4 Av ve 32 20 20 0 PH ai 26 09 10 AR la 0 MA bl CY e WA 00 12 01 01 6. 15 SO 33 No Ac OV 08 -1 -2 70 PE 09 t ti EN 51 6- 8- 0 RS 53 Av ve TI 13 20 20 ai L 20 09 10 FA la HF 1 PA bl A LY e 90 DR VOGEL G IN PEREZ LE R CY 00 12 01 01 30 30 SO 33 FL Ac MB 00 -1 -2 .0 PE 06 IN ti AL 23 2- 8- 00 RS 47 CH ve TA 23 20 20 UM 56 09 10 FA 20 0 PA EL LY LE MG N DR Suresh CA UG PS UL E TI 00 12 01 00 60 30 SO 33 LA Ac ZA 18 -1 -2 .0 PE 06 RS ti NI 50 2- 8- 00 RS 48 ON ve DI 03 20 20 NE 45 09 10 FA LA 1 PA UR HC LY EN L K 2 DR UG TA BL ET 00 12 01 01 14 20 SO 33 No Ac 59 -1 -2 .6 PE 09 t ti 70 6- 8- 99 RS 52 Av ve 01 20 20 ai 31 09 10 FA la 4 PA bl LY e DR UG WA 37 01 01 00 56 28 SO 33 No Ac IL 00 -0 -1 .0 PE 25 t ti OS 00 7- 4- 00 RS 48 Av ve EC 45 20 20 ai 50 10 10 FA la OT 4 PA bl C LY e [address] UG MG TA BL ET 64 01 01 00 12 30 SO 33 No Ac 72 -0 -1 0. PE 25 t ti 00 7- 4- 00 RS 47 Av ve 15 20 20 0 ai 80 10 10 FA la 6 PA bl LY e DR NIKKY 00 12 01 00 90 30 SO 33 LA Ac 59 -3 -1 .0 PE 19 RS ti 10 0- 4- 00 RS 65 ON ve 54 20 20 00 09 10 FA LA 5 PA UR LY EN K DR SHER 00 [...] UM 56 09 09 FA 20 0 PA EL LY LE MG N DR J CA UG PS UL E WA 00 12 12 00 6. 15 SO 33 No Ac OV 08 -1 -3 70 PE 09 t ti EN 51 6- 1- 0 RS 53 Av ve TI 13 20 20 ai L 20 09 09 FA la HF 1 PA bl A LY e 90 DR VOGEL G IN PEREZ LE R WA 00 11 12 01 30 30 SO 32 No Ac EM 04 -0 -3 .0 PE 74 t ti AR 61 6- 1- 00 RS 77 Av ve IN 10 20 20 ai 28 09 09 FA la 0. 1 PA bl 62 LY e [address] UG TA BL ET TI 00 10 12 01 60 30 SO 32 LA Ac ZA 18 -0 -3 .0 PE 49 RS ti NI 50 7- 1- 00 RS 88 ON ve DI 03 20 20 NE 45 09 09 FA LA 1 PA UR HC LY EN L K 2 DR MG UG TA BL ET 00 12 12 00 14 20 SO 33 No Ac 59 -1 -3 .6 PE 09 t ti 70 6- 1- 99 RS 52 Av ve 01 20 20 ai 31 09 09 FA la 4 PA bl LY e DR UG 00 10 12 01 3. 15 SO 32 BL Ac 16 -2 -0 50 PE 64 AN ti 80 7- 3- 0 RS 42 DF ve 02 20 20 OR 63 09 09 FA D 8 PA DA LY D DR SHER 00 05 12 04 36 30 YO 18 No Ac 18 -2 -0 0. UR 98 t ti 57 2- 3- 00 4 Av ve 32 20 20 0 PH ai 26 09 09 AR la 0 MA bl CY e WA 64 10 11 00 60 30 SO 32 No Ac EV 76 -1 -1 .0 PE 49 t ti AC 40 2- 9- 00 RS 91 Av ve ID 04 20 20 ai 61 [address] 3 PA bl LY e 30 DR UG CA PS UL E WA 00 11 11 00 30 30 SO 32 No Ac EM 04 -0 -1 .0 PE 74 t ti AR 61 6- 9- 00 RS 77 Av ve IN 10 20 20 ai 28 09 09 FA la 0. 1 PA bl 62 LY e [address] NIKKY TA BL ET 00 08 11 03 14 15 SO 31 No Ac 59 -1 -1 .6 PE 97 t ti 70 1- 9- 99 RS 04 Av ve 01 20 20 ai 31 09 09 FA la 4 PA bl LY e DR SHER [place] 00 08 11 03 6. 15 SO 31 No Ac OV 08 -1 -1 70 PE 97 t ti EN 51 1- 9- 0 RS 05 Av ve TI 13 20 20 ai L 20 09 09 FA la HF 1 PA bl A LY e 90 DR CAMPBELL UG G IN PEREZ LE R 00 10 11 00 3. 15 SO 32 BL Ac 16 -2 -0 50 PE 64 AN ti 80 7- 5- 0 RS 42 DF ve 02 20 20 OR 63 09 09 FA D 8 PA DA LY D DR SHER GE 24 10 10 00 5. 7 SO 32 LA Ac NT 20 -1 -2 00 PE 49 RS ti AM 80 2- 2- 0 RS 92 ON ve IC 58 20 20 IN 06 09 09 FA LA 0 PA UR 0. LY EN 3% K DR LANCASTER UG E OP S CY 00 10 10 00 30 30 SO 32 LA Ac MB 00 -0 -2 .0 PE 49 RS ti AL 23 7- 2- 00 RS 87 ON ve TA 24 20 20 03 09 09 FA LA 30 0 PA UR LY EN MG K CA UG [...] ai 31 09 09 FA la 4 PA bl LY e DR UG AZ 64 10 10 00 6. 5 SO 32 No Ac IT 67 -1 -2 00 PE 54 t ti HR 90 6- 2- 0 RS 71 Av ve OM 96 20 20 ai YC 10 09 09 FA la IN 5 PA bl LY e [address] MG UG TA BL ET ME 50 10 10 00 40 10 SO 32 No Ac TR 11 -1 -2 .0 PE 54 t ti ON 10 6- 2- 00 RS 70 Av ve ID 33 20 20 ai AZ 30 09 09 FA la OL 6 PA bl E LY e [address] MG UG TA BL ET MU 63 10 10 00 40 10 SO 32 No Ac CI 82 -1 -2 .0 PE 54 t ti NE 40 6- 2- 00 RS 72 Av ve X 00 20 20 ai ER 83 09 09 FA la 4 PA bl 60 LY e [address] UG TA BL ET TI 60 10 10 00 60 30 SO 32 LA Ac ZA 50 -0 -2 .0 PE 49 RS ti NI 50 7- 2- 00 RS 88 ON ve DI 25 20 20 NE 10 09 09 FA LA 2 PA UR HC LY EN L K 2 DR MG UG TA BL ET WA 00 08 10 02 6. 15 SO 31 No Ac OV 08 -1 -2 70 PE 97 t ti EN 51 1- 2- 0 RS 05 Av ve TI 13 20 20 ai L 20 09 09 FA la HF 1 PA bl A LY e 90 DR MC UG G IN PEREZ LE R WA 68 09 10 00 15 4 SO 32 No Ac OM 38 -2 -0 .0 PE 35 t ti ET 20 4- 8- 00 RS 26 Av ve PEREZ 04 20 20 ai ZI 00 09 09 FA la NE 1 PA bl LY e [address] UG MG TA BL ET 00 10 10 00 21 7 SO 32 No Ac 55 -0 -0 .0 PE 41 t ti 50 2- 8- 00 RS 85 Av ve 30 20 20 ai 13 09 09 FA la 8 PA bl LY e DR UG CE 68 09 10 00 28 7 SO 32 No Ac PH 18 -2 -0 .0 PE 35 t ti AL 00 4- 8- 00 RS 38 Av ve EX 12 20 20 ai IN 20 09 09 FA la 2 PA bl 50 LY e [address] UG CA PS UL E WA 64 06 10 02 30 30 SO 31 No Ac EV 76 -2 -0 .0 PE 66 t ti AC 40 6- 8- 00 RS 24 Av ve ID 04 20 20 ai 61 [address] 3 PA bl LY e 30 DR MG UG CA PS UL E WA 00 08 09 01 6. 15 SO 31 No Ac OV 08 -1 -2 70 PE 97 t ti EN 51 1- 4- 0 RS 05 Av ve TI 13 20 20 ai L 20 09 09 FA la HF 1 PA bl A LY e 90 DR CAMPBELL UG G IN PEREZ LE R 00 08 09 01 14 15 SO 31 No Ac 59 -1 -2 .6 PE 97 t ti 70 1- 4- 99 RS 04 Av ve 01 20 20 ai 31 09 09 FA la 4 PA bl LY e DR UG TI 60 08 09 01 60 30 SO 32 LA Ac ZA 50 -1 -2 .0 PE 00 RS ti NI 50 4- 4- 00 RS 27 ON ve DI 25 20 20 NE 10 09 09 FA LA 2 PA UR HC LY EN L K 2 MG UG TA BL ET 00 08 09 01 90 30 SO 32 LA Ac 59 -1 -2 .0 PE 00 RS ti 10 4- 4- 00 RS 28 ON ve 54 20 20 00 09 09 FA LA 5 PA UR LY EN K DR NIKKY WA 68 08 09 00 18 5 SO 32 No Ac OM 38 -2 -1 .0 PE 07 t ti ET 20 4- 0- 00 RS 82 Av ve PEREZ 04 20 20 ai ZI 00 09 09 FA la NE 1 PA bl LY e [address] SHER [...] 20 00 09 09 FA LA 5 PA UR LY EN K DR UG WA 00 08 08 00 6. 15 SO 31 No Ac OV 08 -1 -2 70 PE 97 t ti EN 51 1- 7- 0 RS 05 Av ve TI 13 20 20 ai L 20 09 09 FA la HF 1 PA bl A LY e 90 DR CAMPBELL UG G IN PEREZ LE R 00 08 08 00 14 15 SO 31 No Ac 59 -1 -2 .6 PE 97 t ti 70 - 7- 99 RS 04 Av ve 01 20 20 ai 31 09 09 FA la 4 PA bl LY e DR UG 00 08 08 00 30 30 SO 32 LA Ac 00 -1 -2 .0 PE 00 RS ti 23 4- 7- 00 RS 26 ON ve 23 20 20 73 09 09 FA LA 0 PA UR LY EN K DR UG TI 60 08 08 00 60 30 SO 32 LA Ac ZA 50 -1 -2 .0 PE 00 RS ti NI 50 4- 7- 00 RS 27 ON ve DI 25 20 20 NE 10 09 09 FA LA 2 PA UR HC LY EN L K 2 DR MG UG TA BL ET WA 64 06 08 01 30 30 SO 31 No Ac EV 76 -2 -2 .0 PE 66 t ti AC 40 6- 7- 00 RS 24 Av ve ID 04 20 20 ai 61 [address] 3 PA bl LY e 30 DR MG UG [...] AR la 0 MA bl CY e WA 00 07 07 00 6. 15 SO 31 No Ac OV 08 -2 -3 70 PE 81 t ti EN 51 0- 0- 0 RS 72 Av ve TI 13 20 20 ai L 20 09 09 FA la HF 1 PA bl A LY e 90 DR MC UG G IN PEREZ LE R 00 07 07 00 14 15 SO 31 No Ac 59 -2 -3 .6 PE 81 t ti 70 0- 0- 99 RS 73 Av ve 01 20 20 ai 31 09 09 FA la 4 PA bl LY e DR UG WA 00 04 07 03 30 30 SO 31 No Ac EM 04 -2 -3 .0 PE 16 t ti AR 61 0- 0- 00 RS 41 Av ve IN 10 20 20 ai 28 09 09 FA la 0. 1 PA bl 62 LY e [address] UG TA BL ET 00 06 07 00 12 30 SO 31 No Ac 60 -2 -1 0. PE 65 t ti 33 5- 6- 00 RS 94 Av ve 88 20 20 0 ai 23 09 09 FA la 2 PA bl LY e DR UG VE 00 06 07 00 8. 15 SO 31 No Ac NT 17 -2 -0 00 PE 66 t ti OL 30 6- 2- 0 RS 25 Av ve IN 68 20 20 ai 22 09 09 FA la HF 4 PA bl A LY e 90 DR CAMPBELL UG G IN PEREZ LE R WA 68 06 07 00 20 5 SO 31 No Ac OM 38 -2 -0 .0 PE 65 t ti ET 20 5- 2- 00 RS 96 Av ve PEREZ 04 20 20 ai ZI 00 09 09 FA la NE 1 PA bl LY e [address] NIKKY MG TA BL ET GE 00 03 07 01 60 30 SO 30 No Ac MF 09 -1 -0 .0 PE 84 t ti IB 30 6- 2- 00 RS 83 Av ve RO 67 20 20 ai ZI 00 09 09 FA la L 5 PA bl 60 LY e [address] UG TA BL ET AD 00 02 07 02 60 30 SO 30 No Ac VA 17 -0 -0 .0 PE 47 t ti IR 30 3- 2- 00 RS 47 Av ve 69 20 20 ai 25 60 09 09 FA la 0- 0 PA bl 50 LY e DI SK UG US 00 02 07 02 14 15 SO 30 No Ac 59 -0 -0 .6 PE 47 t ti 70 3- 2- 99 RS 45 Av ve 01 20 20 ai 31 09 09 FA la 4 PA bl LY e DR UG DI 00 06 07 00 10 2 SO 31 No Ac PH 37 -2 -0 .0 PE 65 t ti EN 80 5- 2- 00 RS 95 Av ve OX 41 20 20 ai YL 51 09 09 FA la AT 0 PA bl E- LY e AT RO DR Deshaun UG 2. 5- 0. 02 5 WA 00 04 07 02 30 30 SO 31 No Ac EM 04 -2 -0 .0 PE 16 t ti AR 61 0- 2- 00 RS 41 Av ve IN 10 20 20 ai 28 09 09 FA la 0. 1 PA bl 62 LY e [address] UG TA BL ET 00 05 07 01 36 30 YO 18 No Ac 18 -2 -0 0. UR 98 t ti 57 2- 2- 00 4 Av ve 32 20 20 0 PH ai 26 09 09 AR la 0 MA bl CY e WA 64 06 07 00 30 30 SO 31 No Ac EV 76 -2 -0 .0 PE 66 t ti AC 40 6- 2- 00 RS 24 Av ve ID 04 20 20 ai 61 [address] 3 PA bl LY e 30 DR MG UG CA PS UL E AL 00 06 06 00 60 30 SO 31 No Ac WA 78 -0 -1 .0 PE 52 t ti AZ 11 5- 8- 00 RS 41 Av ve OL 07 20 20 ai AM 71 09 09 FA la 0 PA bl 0. LY e [address] UG TA BL ET WA 00 04 06 01 30 30 SO 31 No Ac EM 04 -2 -0 .0 PE 16 t ti AR 61 0- 4- 00 RS 41 Av ve IN 10 20 20 ai 28 09 09 FA la 0. 1 PA bl 62 LY e [address] UG TA BL ET WA 00 05 06 00 6. 15 SO 31 No Ac OV 08 -2 -0 70 PE 45 t ti EN 51 8- 4- 0 RS 24 Av ve TI 13 20 20 ai L 20 09 09 FA la HF 1 PA bl A LY e 90 DR MC [...] ai 56 09 09 FA la 5 PA bl LY e DR UG AL 00 05 05 00 2. 1 SO 31 No Ac WA 78 -1 -2 00 PE 37 t ti AZ 11 5- 1- 0 RS 03 Av ve OL 07 20 20 ai AM 71 09 09 FA la 0 PA bl 0. LY e [address] UG TA BL ET 63 05 05 00 40 10 SO 31 No Ac 30 -0 -2 .0 PE 28 t ti 40 5- 1- 00 RS 63 Av ve 65 20 20 ai 70 09 09 FA la 5 PA bl LY e DR UG WA 64 01 05 03 30 30 SO 30 No Ac EV 76 -1 -2 .0 PE 35 t ti AC 40 5- 1- 00 RS 42 Av ve ID 04 20 20 ai 61 [address] 3 PA bl LY e 30 DR MG UG CA PS UL E 00 05 05 00 30 7 SO 31 No Ac 59 -0 -2 .0 PE 28 t ti 12 5- 1- 00 RS 64 Av ve 22 20 20 ai 80 09 09 FA la 5 PA bl LY e DR UG FL 60 05 05 00 16 30 SO 31 No Ac UT 50 -0 -2 .0 PE 28 t ti IC 50 5- 1- 00 RS 60 Av ve 82 20 20 ai ON 90 09 09 FA la E 1 PA bl WA LY e OP DR 50 UG MC G SP RA Y 00 05 05 00 60 15 SO 31 No Ac 60 -0 -2 .0 PE 32 t ti 33 8- 1- 00 RS 25 Av ve 88 20 20 ai 23 09 09 FA la 2 PA bl LY e DR UG 00 05 05 00 30 30 SO 31 No Ac 00 -0 -2 .0 PE 28 t ti 60 5- 1- 00 RS 62 Av ve 11 20 20 ai 73 09 09 FA la 1 PA bl LY e DR UG WA 00 04 05 00 30 30 SO 31 No Ac EM 04 -2 -0 .0 PE 16 t ti AR 61 0- 7- 00 RS 41 Av ve IN 10 20 20 ai 28 09 09 FA la 0. 1 PA bl 62 LY e [address] UG TA BL ET 00 04 05 00 40 10 SO 31 No Ac 60 -2 -0 .0 PE 19 t ti 33 3- 7- 00 RS 17 Av ve 88 20 20 ai 23 09 09 FA la 2 PA bl LY e DR UG 00 08 [...] 60 09 09 FA la IN 1 PA bl E LY e HC L DR 10 UG MG TA B 68 03 04 00 25 7 SO 30 No Ac 46 -2 -0 .0 PE 95 t ti 20 6- 9- 00 RS 68 Av ve 14 20 20 ai 64 09 09 FA la 5 PA bl LY e DR UG 00 03 04 00 30 30 SO 30 No Ac 40 -2 -0 .0 PE 95 t ti 62 6- 9- 00 RS 67 Av ve 09 20 20 ai 80 09 09 FA la 5 PA bl LY e DR UG WA 64 01 04 02 30 30 SO 30 No Ac EV 76 -1 -0 .0 PE 35 t ti AC 40 5- 9- 00 RS 42 Av ve ID 04 20 20 ai 61 [address] 3 PA bl LY e 30 DR MG UG CA PS UL E WA 00 02 04 02 6. 15 SO 30 No Ac OV 08 -0 -0 70 PE 47 t ti EN 51 3- 9- 0 RS 46 Av ve TI 13 20 20 ai L 20 09 09 FA la HF 1 PA bl A LY e 90 DR CAMPBELL UG G IN PEREZ LE R AZ 64 03 03 00 6. 5 SO 30 No Ac IT 67 -1 -2 00 PE 82 t ti HR 90 3- 6- 0 RS 61 Av ve OM 96 20 20 ai YC 10 09 09 FA la IN 4 PA bl LY e [address] MG UG TA BL ET GE 00 03 03 00 60 30 SO 30 No Ac MF 09 -1 -2 .0 PE 84 t ti IB 30 6- 6- 00 RS 83 Av ve RO 67 20 20 ai ZI 00 09 09 FA la L 5 PA bl 60 LY e [address] UG TA BL ET PE 00 03 03 00 90 30 SO 30 No Ac NT 09 -1 -2 .0 PE 82 t ti OX 35 3- 6- 00 RS 62 Av ve IF 11 20 20 ai YL 60 09 09 FA la LI 5 PA bl NE LY e ER UG 40 [...] ai 31 09 09 FA la 4 PA bl LY e DR UG AD 00 02 03 01 60 30 SO 30 No Ac VA 17 -0 -1 .0 PE 47 t ti IR 30 3- 2- 00 RS 47 Av ve 69 20 20 ai 25 60 09 09 FA la 0- 0 PA bl [address] CHRISTY SHER US [place] 00 02 03 01 6. 15 SO 30 No Ac OV 08 -0 -1 70 PE 47 t ti EN 51 3- 2- 0 RS 46 Av ve TI 13 20 20 ai L 20 09 09 FA la HF 1 PA bl A LY e 90 DR GARCIA IN LE R WA 64 01 02 01 30 30 SO 30 No Ac EV 76 -1 -2 .0 PE 35 t ti AC 40 5- 6- 00 RS 42 Av ve ID 04 20 20 ai 61 [address] 3 PA bl LY e 30 DR MG UG [...] NA 57 09 09 FA TA 0 PA LI LY E E UG 00 02 02 00 51 13 SO 30 PEREZ Ac 09 -1 -2 .0 PE 61 RV ti 50 9- 6- 00 RS 28 EY ve 08 20 20 65 09 09 FA RODOLFO [address] UG WA 00 02 02 00 30 30 SO 30 No Ac EM 04 -1 -2 .0 PE 61 t ti AR 61 9- 6- 00 RS 29 Av ve IN 10 20 20 ai 48 09 09 FA la 1. 1 PA bl [address] NIKKY TA BL ET CI 55 02 02 00 10 10 SO 30 No Ac WA 11 -0 -1 .0 PE 50 t ti OF 10 5- 2- 00 RS 21 Av ve LO 12 20 20 ai XA 70 09 09 FA la CI 1 PA bl N LY e HC L 50 UG 0 MG TA B AD 00 02 02 00 60 30 SO 30 No Ac VA 17 -0 -1 .0 PE 47 t ti IR 30 3- 2- 00 RS 47 Av ve 69 20 20 ai 25 60 09 09 FA la 0- 0 PA bl [address] CHRISTY SHER US [place] 00 02 02 00 6. 15 SO 30 No Ac OV 08 -0 -1 70 PE 47 t ti EN 51 3- 2- 0 RS 46 Av ve TI 13 20 20 ai L 20 09 09 FA la HF 1 PA bl A LY e 90 DR MC UG G IN PEREZ LE R AZ 64 02 02 00 6. 5 SO 30 No Ac IT 67 -0 -1 00 PE 50 t ti HR 90 5- 2- 0 RS 22 Av ve OM 96 20 20 ai YC 10 09 09 FA la IN 5 PA bl LY e [address] MG UG TA BL ET 00 02 02 00 21 6 SO 30 No Ac 55 -0 -1 .0 PE 49 t ti 50 5- 2- 00 RS 74 Av ve 30 20 20 ai 13 09 09 FA la 8 PA bl LY e DR UG 00 02 02 00 14 15 SO 30 No Ac 59 -0 -1 .6 PE 47 t ti 70 3- 2- 99 RS 45 Av ve 01 20 20 ai 31 09 09 FA la 4 PA bl LY e DR UG SE 31 12 01 01 8. 30 SO 30 No Ac RT 72 -1 -3 00 PE 11 t ti RA 20 5- 0- 0 RS 12 Av ve LI 21 20 20 ai NE 40 08 09 FA la 5 PA bl HC LY e L 10 DR 0 UG MG TA BL ET 59 01 01 00 7. 20 SO 30 No Ac 31 -1 -3 29 PE 35 t ti 00 5- 0- 9 RS 45 Av ve 17 20 20 ai 78 09 09 FA la 0 PA bl LY e DR UG WA 00 01 01 00 30 30 SO 27 No Ac EM 04 -1 -3 .0 PE 32 t ti AR 61 7- 0- 00 RS 20 Av ve IN 10 20 20 ai 49 08 09 FA la 1. 1 PA bl [address] UG TA BL ET 00 01 01 00 30 30 SO 30 No Ac 30 -1 -3 .0 PE 35 t ti 03 5- 0- 00 RS 42 Av ve 04 20 20 ai 61 09 09 FA la 3 PA bl LY e DR UG NA 68 12 01 01 60 30 SO 30 No Ac WA 46 -0 -3 .0 PE 01 t ti OX 20 4- 0- 00 RS 54 Av ve EN 19 20 20 ai 00 08 09 FA la 50 5 PA bl [address] TA UG BL ET ME 00 01 01 00 30 10 SO 30 No Ac TH 14 -1 -3 .0 PE 35 t ti OC 31 5- 0- 00 RS 41 Av ve AR 29 20 20 ai BA 00 09 09 FA la MO 1 PA bl L LY e [address] MG UG TA BL ET 00 01 01 00 12 30 SO 30 No Ac 60 -1 -3 0. PE 35 t ti 35 5- 0- 00 RS 43 Av ve 46 20 20 0 ai 83 09 09 FA la 2 PA bl LY e DR UG 00 12 01 00 47 11 SO 30 No Ac 12 -3 -1 3. PE 21 t ti 10 0- 5- 00 RS 34 Av ve 63 20 20 0 ai 81 08 09 FA la 6 PA bl LY e DR UG 63 12 01 00 60 30 SO 30 No Ac 82 -3 -1 .0 PE 21 t ti 40 0- 5- 00 RS 33 Av ve 00 20 20 ai 81 08 09 FA la 0 PA bl LY e DR UG 00 08 [...] RAUL 61 08 09 FA IS [address] UG CL 00 12 01 00 40 20 SO 30 No Ac ON 60 -1 -0 .0 PE 11 t ti AZ 32 5- 1- 00 RS 11 Av ve EP 94 20 20 ai AM 83 08 09 FA la 2 PA bl 0. LY e [address] UG TA BL ET SE 31 12 01 00 8. 30 SO 30 No Ac RT 72 -1 -0 00 PE 11 t ti RA 20 5- 1- 0 RS 12 Av ve LI 21 20 20 ai NE 40 08 09 FA la 5 PA bl HC LY e L 10 DR 0 UG MG TA BL ET NA 68 12 12 00 60 30 SO 30 RI Ac WA 46 -0 -1 .0 PE 01 NA ti OX 20 4- 8- 00 RS 54 LD ve EN 19 20 20 IN 00 08 08 FA I 50 5 PA AN 0 LY A MG M TA UG BL ET WA 00 08 12 03 6. 15 SO 29 RI Ac OV 08 -2 -1 70 PE 14 NA ti EN 51 2- 8- 0 RS 36 LD ve TI 13 20 20 IN L 20 08 08 FA I HF 1 PA AN A LY A 90 M MC UG G IN PEREZ LE R AZ 64 12 12 00 6. 5 SO 30 RI Ac IT 67 -0 -1 00 PE 01 NA ti HR 90 4- 8- 0 RS 53 LD ve OM 96 20 20 IN YC 10 08 08 FA I IN 4 PA AN LY A [address] MG UG TA BL ET 00 08 12 03 14 15 SO 29 RI Ac 59 -2 -1 .6 PE 14 NA ti 70 2- 8- 99 RS 37 LD ve 01 20 20 IN 31 08 08 FA I 4 PA AN LY A M DR UG WA 00 01 12 07 30 30 SO 27 RI Ac EM 04 -1 -1 .0 PE 32 NA ti AR 61 7- 8- 00 RS 21 LD ve IN 10 20 20 IN 49 08 08 FA I 1. 1 PA AN [address] UG TA BL ET 52 11 12 00 1. 1 SO 29 PE Ac 26 -2 -0 00 PE 94 NA ti 80 6- 4- 0 RS 26 ve 52 20 20 RAUL 10 08 08 FA IS [address] UG AD 00 06 11 03 60 30 SO 28 RI Ac VA 17 -2 -2 .0 PE 68 NA ti IR 30 0- 0- 00 RS 68 LD ve 69 20 20 IN 25 60 08 08 FA I 0- 0 PA AN 50 LY [address] SK UG US ME 00 11 11 00 15 5 SO 29 RI Ac TH 14 -0 -2 .0 PE 75 NA ti OC 31 6- 0- 00 RS 90 LD ve AR 29 20 20 IN BA 00 08 08 FA I MO 1 PA AN L LY A [address] MG UG TA BL ET 00 08 11 02 30 30 SO 29 PE Ac 30 -1 -2 .0 PE 04 NA ti 03 1- 0- 00 RS 83 ve 04 20 20 RAUL 61 08 08 FA IS [address] UG 00 08 11 02 14 15 SO 29 RI Ac 59 -2 -2 .6 PE 14 NA ti 70 2- 0- 99 RS 37 LD ve 01 20 20 IN 31 08 08 FA I 4 PA AN LY A M DR UG WA 00 08 11 02 6. 15 SO 29 RI Ac OV 08 -2 -2 70 PE 14 NA ti EN 51 2- 0- 0 RS 36 LD ve TI 13 20 20 IN L 20 08 08 FA I HF 1 PA AN A LY A [address] [...] 50 08 08 FA la E 1 PA bl [address] UG TA BL ET MARKS 00 10 10 00 20 10 SO 29 RI Ac LF 60 -0 -2 .0 PE 52 NA ti AM 35 9- 3- 00 RS 93 LD ve ET 78 20 20 IN HO 12 08 08 FA I XA 8 PA AN ZO LY A LE M -T DR TITUS UG DS TA BL ET WA 00 01 10 06 30 30 SO 27 RI Ac EM 04 -1 -2 .0 PE 32 NA ti AR 61 7- 3- 00 RS 21 LD ve IN 10 20 20 IN 49 08 08 FA I 1. 1 PA AN [address] SHER TA BL ET AD 00 06 10 02 60 30 SO 28 RI Ac VA 17 -2 -0 .0 PE 68 NA ti IR 30 0- 9- 00 RS 68 LD ve 69 20 20 IN 25 60 08 08 FA I 0- 0 PA AN [address] L[address] HARRISON UG US WA 10 09 10 00 20 5 SO 29 No Ac OM 70 -2 -0 .0 PE 39 t ti ET 20 2- 9- 00 RS 22 Av ve PEREZ 00 20 20 ai ZI 31 08 08 FA la NE 0 PA bl LY e 25 DR VENCES UG TA BL ET 65 09 10 00 56 14 SO 29 No Ac 48 -2 -0 .0 PE 39 t ti 30 2- 9- 00 RS 23 Av ve 49 20 20 ai 51 08 08 FA la 4 PA bl LY e UG 00 08 10 01 30 30 SO 29 No Ac 30 -1 -0 .0 PE 04 t ti 03 1- 9- 00 RS 83 Av ve 04 20 20 ai 61 08 08 FA la 3 PA bl LY e DR UG TR 65 09 09 00 90 23 SO 29 No Ac AM 16 -1 -2 .0 PE 32 t ti AD 20 5- 6- 00 RS 91 Av ve OL 62 20 20 ai 71 08 08 FA la HC 1 PA bl L LY e 50 DR VENCES UG TA BL ET WA 00 08 09 01 6. 15 SO 29 No Ac OV 08 -2 -2 70 PE 14 t ti EN 51 2- 6- 0 RS 36 Av ve TI 13 20 20 ai L 20 08 08 FA la HF 1 PA bl A LY e 90 DR CAMPBELL UG G IN PEREZ LE R GE 00 04 09 03 60 30 SO 28 No Ac MF 09 -0 -2 .0 PE 10 t ti IB 30 8- 6- 00 RS 90 Av ve RO 67 20 20 ai ZI 00 08 08 FA la L 5 PA bl 60 LY e [address] UG TA BL ET 00 08 09 01 14 15 SO 29 No Ac 59 -2 -2 .6 PE 14 t ti 70 2- 6- 99 RS 37 Av ve 01 20 20 ai 31 08 08 FA la 4 PA bl LY e DR UG TR 50 09 09 00 30 30 SO 29 No Ac AZ 11 -1 -2 .0 PE 32 t ti OD 10 5- 6- 00 RS 90 Av ve ON 43 20 20 ai E 30 08 08 FA la 50 3 PA bl LY e MG DR TIFFANY UG BL ET 49 08 09 00 30 10 SO 29 No Ac 88 -2 -1 .0 PE 18 t ti 40 8- 1- 00 RS 87 Av ve 77 20 20 ai 80 08 08 FA la 5 PA bl LY e DR UG WA 00 01 09 05 30 30 SO 27 No Ac EM 04 -1 -1 .0 PE 32 t ti AR 61 7- 1- 00 RS 21 Av ve IN 10 20 20 ai 49 08 08 FA la 1. 1 PA bl [address] UG TA BL ET WA 00 08 08 00 6. 15 SO 29 No Ac OV 08 -2 -2 70 PE 14 t ti EN 51 2- 8- 0 RS 36 Av ve TI 13 20 20 ai L 20 08 08 FA la HF 1 PA bl A LY e 90 DR MC UG G IN PEREZ LE R 00 08 08 00 36 30 YO 16 No Ac 18 -2 -2 0. UR 66 t ti 57 2- 8- 00 2 Av ve 32 20 20 0 PH ai 26 08 08 AR la 0 MA bl CY e WA 37 03 08 04 28 28 SO 28 No Ac IL 00 -2 -2 .0 PE 02 t ti OS 00 7- 8- 00 RS 87 Av ve EC 35 20 20 ai 90 08 08 FA la OT 7 PA bl C LY e [address] UG MG TA BL ET 00 08 08 00 14 15 SO 29 No Ac 59 -2 -2 .6 PE 14 t ti 70 2- 8- 99 RS 37 Av ve 01 20 20 ai 31 08 08 FA la 4 PA bl LY e DR UG 00 08 08 00 30 30 SO 29 No Ac 30 -1 -2 .0 PE 04 t ti 03 1- 8- 00 RS 83 Av ve 04 20 20 ai 61 08 08 FA la 3 PA bl LY e DR UG 00 06 08 02 14 15 SO 28 No Ac 59 -0 -1 .6 PE 56 t ti 70 3- 4- 99 RS 61 Av ve 01 20 20 ai 31 08 08 FA la 4 PA bl LY e DR UG WA 00 06 08 02 6. 15 SO 28 No Ac OV 08 -0 -1 70 PE 56 t ti EN 51 3- 4- 0 RS 62 Av ve TI 13 20 20 ai L 20 08 08 FA la HF 1 PA bl A LY e 90 DR CAMPBELL UG G IN PEREZ LE R AD 00 06 08 01 60 30 SO 28 No Ac VA 17 -2 -1 .0 PE 68 t ti IR 30 0- 4- 00 RS 68 Av ve 69 20 20 ai 25 60 08 08 FA la 0- 0 PA bl [address] HARRISON UG US GE 00 04 07 02 60 30 SO 28 No Ac MF 09 -0 -1 .0 PE 10 t ti IB 30 8- 7- 00 RS 90 Av ve RO 67 20 20 ai ZI 00 08 08 FA la L 5 PA bl 60 LY e [address] UG TA BL ET WA 37 03 07 03 28 28 SO 28 No Ac IL 00 -2 -1 .0 PE 02 t ti OS 00 7- 7- 00 RS 87 Av ve EC 35 20 20 ai 90 08 08 FA la OT 7 PA bl C LY e [address] UG MG TA BL ET MARKS 00 07 07 00 12 30 SO 28 No Ac CR 59 -1 -1 0. PE 83 t ti AL 10 7- RS 73 Av ve FA 78 20 20 0 ai TE 00 08 08 FA la 1 5 PA bl LY e GM DR TA UG BL ET WA 00 01 07 04 30 30 SO 27 No Ac EM 04 -1 -1 .0 PE 32 t ti AR 61 7- 7- 00 RS 21 Av ve IN 10 20 20 ai 49 08 08 FA la 1. 1 PA bl [address] UG TA BL ET PE 45 07 07 00 60 30 SO 28 No Ac RM 80 -1 -1 .0 PE 83 t ti ET 20 1- 7- 00 RS 74 Av ve HR 26 20 20 ai IN 93 08 08 FA la 7 PA bl 5% LY e CR EA UG M WA 00 06 07 01 6. 15 SO 28 No Ac OV 08 -0 -0 70 PE 56 t ti EN 51 3- 3- 0 RS 62 Av ve TI 13 20 20 ai L 20 08 08 FA la HF 1 PA bl A LY e 90 DR VOGEL G IN PEREZ LE R 00 06 07 00 21 6 SO 28 No Ac 55 -2 -0 .0 PE 68 t ti 50 0- 3- 00 RS 67 Av ve 30 20 20 ai 13 08 08 FA la 8 PA bl LY e DR SHER 00 06 07 01 14 15 SO 28 No Ac 59 -0 -0 .6 PE 56 t ti 70 3- 3- 99 RS 61 Av ve 01 20 20 ai 31 08 08 FA la 4 PA bl LY e DR SHER AZ 00 06 07 00 6. 5 SO 28 No Ac IT 78 -2 -0 00 PE 68 t ti HR 11 0- 3- 0 RS 66 Av ve OM 49 20 20 ai YC 66 08 08 FA la IN 8 PA bl LY e [address] VENCES UG TA BL ET AD 00 06 07 00 60 30 SO 28 No Ac VA 17 -2 -0 .0 PE 68 t ti IR 30 0- 3- 00 RS 68 Av ve 69 20 20 ai 25 60 08 08 FA la 0- 0 PA bl [address] CHRISTY SHER US [place] 37 03 06 02 28 28 SO 28 No Ac IL 00 -2 -1 .0 PE 02 t ti OS 00 7- 2- 00 RS 87 Av ve EC 35 20 20 ai 90 08 08 FA la OT 7 PA bl C LY e [address] SHER MG TA BL ET 00 06 06 00 14 15 SO 28 No Ac 59 -0 -1 .6 PE 56 t ti 70 3- 2- 99 RS 61 Av ve 01 20 20 ai 31 08 08 FA la 4 PA bl LY e DR SHER [place] 00 06 06 00 6. 15 SO 28 No Ac OV 08 -0 -1 70 PE 56 t ti EN 51 3- 2- 0 RS 62 Av ve TI 13 20 20 ai L 20 08 08 FA la HF 1 PA bl A LY e 90 DR VOGEL G IN PEREZ LE R 00 05 06 00 30 30 SO 28 No Ac 00 -2 -0 .0 PE 49 t ti 60 3- 5- 00 RS 01 Av ve 11 20 20 ai 73 08 08 FA la 1 PA bl LY e DR SHER 64 05 06 00 15 7 SO 28 No Ac 45 -2 -0 .0 PE 50 t ti 50 7- 5- 00 RS 75 Av ve 99 20 20 ai 39 08 08 FA la 4 PA bl LY e DR UG LO 24 05 06 00 30 30 SO 28 No Ac RA 38 -2 -0 .0 PE 49 t ti TA 50 3- 5- 00 RS 00 Av ve DI 47 20 20 ai NE 17 08 08 FA la 8 PA bl [address] UG TA BL ET WA 00 01 06 03 30 30 SO 27 No Ac EM 04 -1 -0 .0 PE 32 t ti AR 61 7- 5- 00 RS 21 Av ve IN 10 20 20 ai 49 08 08 FA la 1. 1 PA bl [address] UG TA BL ET BE 68 05 06 00 28 7 SO 28 No Ac NZ 38 -2 -0 .0 PE 49 t ti ON 20 3- 5- 00 RS 02 Av ve AT 24 20 20 ai AT 80 08 08 FA la E 1 PA bl 20 LY e [address] UG CA PS UL E 00 05 06 00 6. 5 SO 28 No Ac 37 -2 -0 00 PE 48 t ti 81 3- 5- 0 RS 98 Av ve 53 20 20 ai 38 08 08 FA la 3 PA bl LY e DR UG GE 00 04 06 01 60 30 SO 28 No Ac MF 09 -0 -0 .0 PE 10 t ti IB 30 8- 5- 00 RS 90 Av ve RO 67 20 20 ai ZI 00 08 08 FA la L 5 PA bl 60 LY e [address] UG TA BL ET 00 05 05 00 14 15 SO 28 No Ac 59 -1 -2 .6 PE 38 t ti 70 2- 2- 99 RS 43 Av ve 01 20 20 ai 31 08 08 FA la 4 PA bl LY e DR UG WA 37 03 05 01 28 28 SO 28 No Ac IL 00 -2 -2 .0 PE 02 t ti OS 00 7- 2- 00 RS 87 Av ve EC 45 20 20 ai 50 08 08 FA la OT 3 PA bl C LY e [address] UG MG TA BL ET 58 04 05 01 30 30 SO 28 No Ac 17 -1 -2 .0 PE 12 t ti 70 0- 2- 00 RS 96 Av ve 30 20 20 ai 90 08 08 FA la 4 PA bl LY e DR UG WA 00 05 05 00 6. 15 SO 28 No Ac OV 08 -1 -2 70 PE 38 t ti EN 51 2- 2- 0 RS 42 Av ve TI 13 20 20 ai L 20 08 08 FA la HF 1 PA bl A LY e 90 DR MC UG G IN PEREZ LE R 58 04 05 00 10 10 SO 28 No Ac 17 -2 -0 .0 PE 22 t ti 70 2- 8- 00 RS 93 Av ve 30 20 20 ai 10 08 08 FA la 4 PA bl LY e DR UG 00 03 05 01 14 15 SO 28 No Ac 59 -2 -0 .6 PE 02 t ti 70 7- 8- 99 RS 61 Av ve 01 20 20 ai 31 08 08 FA la 4 PA bl LY e DR UG WA 00 03 05 01 6. 15 SO 28 No Ac OV 08 -2 -0 70 PE 02 t ti EN 51 7- 8- 0 RS 62 Av ve TI 13 20 20 ai L 20 08 08 FA la HF 1 PA bl A LY e 90 DR [facility]AMPBELL UG G IN PEREZ LE R TR 65 04 05 00 40 10 SO 28 No Ac AM 16 -2 -0 .0 PE 22 t ti AD 20 2- 8- 00 RS 94 Av ve OL 62 20 20 ai 75 08 08 FA la HC 0 PA bl L LY e 50 DR MG UG TA BL ET AZ 00 04 04 00 6. 5 SO 28 No Ac IT 78 -0 -2 00 PE 10 t ti HR 11 8- 4- 0 RS 91 Av ve OM 49 20 20 ai YC 66 08 08 FA la IN 8 PA bl LY e [address] MG UG TA BL ET 63 04 04 00 40 5 SO 28 No Ac 82 -0 -2 .0 PE 10 t ti 40 8- 4- 00 RS 92 Av ve 00 20 20 ai 81 08 08 FA la 0 PA bl LY e DR UG 58 04 04 00 30 30 SO 28 No Ac 17 -1 -2 .0 PE 12 t ti 70 0- 4- 00 RS 96 Av ve 30 20 20 ai 90 08 08 FA la 4 PA bl LY e DR UG WA 00 01 04 02 30 30 SO 27 No Ac EM 04 -1 -2 .0 PE 32 t ti AR 61 7- 4- 00 RS 21 Av ve IN 10 20 20 ai 49 08 08 FA la 1. 1 PA bl [address] UG TA BL ET GE 00 04 04 00 60 30 SO 28 No Ac MF 09 -0 -2 .0 PE 10 t ti IB 30 8- 4- 00 RS 90 Av ve RO 67 20 20 ai ZI 00 08 08 FA la L 5 PA bl 60 LY e [address] UG TA BL ET TR 65 03 04 00 30 7 SO 27 No Ac AM 16 -2 -1 .0 PE 95 t ti AD 20 0- 7- 00 RS 32 Av ve OL 62 20 20 ai 75 08 08 FA la HC 0 PA bl L LY e 50 DR MG UG TA BL ET 00 03 04 00 30 30 SO 27 No Ac 09 -2 -1 .0 PE 95 t ti 35 0- 7- 00 RS 33 Av ve 50 20 20 ai 20 08 08 FA la 1 PA bl LY e DR UG 00 01 04 02 14 15 SO 27 No Ac 59 -3 -1 .6 PE 44 t ti 70 1- 7- 99 RS 57 Av ve 01 20 20 ai 31 08 08 FA la 4 PA bl LY e DR UG WA 00 01 04 02 6. 15 SO 27 No Ac OV 08 -3 -1 70 PE 44 t ti EN 51 1- 7- 0 RS 56 Av ve TI 13 20 20 ai L 20 08 08 FA la HF 1 PA bl A LY e 90 DR CAMPBELL UG G IN PEREZ LE R WA 37 03 04 00 28 28 SO 28 No Ac IL 00 -2 -1 .0 PE 02 t ti OS 00 7- 0- 00 RS 87 Av ve EC 45 20 20 ai 50 08 08 FA la OT 3 PA bl C LY e [address] UG MG TA BL ET WA 00 03 04 00 6. 15 SO 28 No Ac OV 08 -2 -1 70 PE 02 t ti EN 51 7- 0- 0 RS 62 Av ve TI 13 20 20 ai L 20 08 08 FA la HF 1 PA bl A LY e 90 DR CAMPBELL UG G IN PEREZ LE R 00 03 04 00 14 15 SO 28 No Ac 59 -2 -1 .6 PE 02 t ti 70 7- 0- 99 RS 61 Av ve 01 20 20 ai 31 08 08 FA la 4 PA bl LY e DR UG WA 37 01 03 01 28 28 SO 27 No Ac IL 00 -1 -2 .0 PE 26 t ti OS 00 4- 6- 00 RS 50 Av ve EC 45 20 20 ai 50 08 08 FA la OT 3 PA bl C LY e [address] UG MG TA BL ET 00 01 03 01 14 15 SO 27 No Ac 59 -3 -2 .6 PE 44 t ti 70 1- 6- 99 RS 57 Av ve 01 20 20 ai 31 08 08 FA la 4 PA bl LY e DR UG 00 01 03 00 14 15 SO 27 No Ac 59 -3 -2 .6 PE 44 t ti 70 1- 6- 99 RS 57 Av ve 01 20 20 ai 31 08 08 FA la 4 PA bl LY e DR UG WA 00 01 03 01 30 30 SO 27 No Ac EM 04 -1 -2 .0 PE 32 t ti AR 61 7- 6- 00 RS 21 Av ve IN 10 20 20 ai 49 08 08 FA la 1. 1 PA bl [address] UG TA BL ET WA 00 01 03 01 6. 15 SO 27 No Ac OV 08 -3 -2 70 PE 44 t ti EN 51 1- 6- 0 RS 56 Av ve TI 13 20 20 ai L 20 08 08 FA la HF 1 PA bl A LY e 90 DR MC UG G IN PEREZ LE R AZ 00 01 03 00 6. 5 SO 27 No Ac IT 78 -1 -2 00 PE 32 t ti HR 11 7- 5- 0 RS 19 Av ve OM 49 20 20 ai YC 66 08 08 FA la IN 8 PA bl LY e [address] MG UG TA BL ET WA 00 01 03 00 30 30 SO 27 No Ac EM 04 -1 -2 .0 PE 32 t ti AR 61 7- 5- 00 RS 21 Av ve IN 10 20 20 ai 49 08 08 FA la 1. 1 PA bl [address] UG TA BL ET WA 68 12 03 01 14 14 SO 27 No Ac OM 38 -1 -2 .0 PE 05 t ti ET 20 8- 5- 00 RS 16 Av ve PEREZ 04 20 20 ai ZI 11 07 08 FA la NE 0 PA bl LY e 25 DR MG UG TA BL ET WA 37 01 03 00 28 28 SO 27 No Ac IL 00 -1 -2 .0 PE 26 t ti OS 00 4- 5- 00 RS 50 Av ve EC 45 20 20 ai 50 08 08 FA la OT 3 PA bl C LY e [address] UG MG TA BL ET WA 00 10 03 03 6. 15 SO 26 No Ac OV 08 -2 -2 70 PE 59 t ti EN 51 9- 4- 0 RS 33 Av ve TI 13 20 20 ai L 20 07 08 FA la HF 1 PA bl A LY e 90 DR MC UG G IN PEREZ LE R 00 09 03 05 14 15 SO 26 No Ac 59 -1 -2 .6 PE 21 t ti 70 7- 4- 99 RS 28 Av ve 01 20 20 ai 31 07 08 FA la 4 PA bl LY e [address] UG WA 00 11 03 01 30 30 SO 26 No Ac EM 04 -0 -2 .0 PE 67 t ti AR 61 7- 4- 00 RS 61 Av ve IN 10 20 20 ai 29 07 08 FA la 0. 1 PA bl 62 LY e [address] NIKKY ALLEN BL ET Procedures Procedure DOS Code Location Performer Comment NJX [id number] [facility] DX/THER [facility] SBST INC INC INTRLMNR LMBR/SAC W/IMG GDN LIPID 94985 [facility] PANEL 7 [facility] INC INC COLLECTIO 16732 [facility] N VENOUS 7 [facility] [place] [address] ABBIE LEIVA FREE 7 [facility] THYROXINE INC INC GENERAL 83140 [facility]BI[facility] HEALTH 7 [facility] PANEL INC INC GENERAL 88698 ABBIESTEVE LEIVA HEALTH 7 [facility] [place] [address] [facility]BIE LEIVA FOLIC 7 [facility] ACID INC INC SERUM CYANOCOBA 67902 ABBIE LEIVA KAILEY 7 [facility] VITAMIN INC INC B-12 RADEX 46488 [facility] FOOT 7 EMILY COMPLETE EMERGENCY MINIMUM 3 PHYS VIEWS DRUG TEST 96795 [facility] PRSMV 7 [facility] QUAL DIR INC INC OPTICAL OBS PER DAY DRUG TEST G0480 [facility] DEFINITV [address] ID INC INC METH P DAY 1-7 DRUG CL COMPREHEN 84395 [facility] SIVE 7 [facility] MET[facility]OL[facility] PANEL BLOOD 30704 LAB [facility] COUNT 7 [facility] COMPLETE [facility] AUTO&AUTO DIFRNTL WBC LACTATE 37591 [facility] DEHYDROGE 7 [facility] NASE [facility] RADIOLOGI 59048 [facility] LE[facility] C EXAM 6 [facility] KNEE INC INC COMPLETE 4/MORE VIEWS DUP-SCAN 43753 ABBI[facility] LE[facility] XTR VEINS 6 [facility] INC INC UNILATERA L/LIMITED STUDY DRUG TST G0477 [facility] PRESUMP;C 6 [facility] PBL BEING INC INC READ DC OPT OBV ONLY DRUG TEST G0481 [facility]BI[facility] DEFINITV [address] ID INC INC METH P DAY 8-14 DRUG CL RADIOLOGI 93803 [facility] C EXAM 6 EIDER GIOVANNA CHEST 2 RADIOLOGY VIEWS ASSOCIAT FRONTAL&L ATERAL NEUROPLAS 49544 [facility] SALDA[facility], TY 6 [facility] &/TRANSPO MEDICAL S MEDIAN G NRV CARPAL TUNNE TENDON 23919 [facility], SHEATH 6 [facility] INCISION MEDICAL G DRUG TST G0477 ABBIE LEIVA PRESUMP;C 6 [facility] PBL BEING INC INC READ DC OPT OBV ONLY ECG 92606 [facility] ROUTINE [address] [place] [address] W/LEAST 12 LDS TRCG ONLY W/O I&R BLOOD 89576 [facility] COUNT [address] [place] [address] AUTO&AUTO DIFRNTL WBC RADIOLOGI 99471 [facility] C EXAM 6 [facility] CHEST 2 [facility] VIEWS FRONTAL&L ATERAL COLLECTIO 26219 [facility] N VENOUS [address] [place] [address] VENIPUNCT URE COMPREHEN 40771 [facility] SIVE [address] [place] [address] PANEL TB CELL 58049 [facility] 6 Y Y [facility] RESPNSE GAMMA INTERFERO N COLLECTIO 23843 [facility] N VENOUS [address] [place] [address] VENIPUNCT URE NEEDLE 87203 [facility] EMG EA 6 ANALY EXTREMTY [facility] W/PARASPI PLLC NL AREA COMPLETE NERVE 18838 [facility] CONDUCTIO 6 ANALY N STUDIES [facility] 9-10 PLLC STUDIES COMPREHEN 27750 [facility] SIVE 6 [facility] PANEL BLOOD 37504 LAB [facility] LAB [facility]ERI COUNT 6 [facility] COMPLETE [facility] AUTO&AUTO DIFRNTL WBC LACTATE 69002 LAB [facility] SH[facility]I DEHYDROGE 6 [facility] NASE [facility] WRIST L3908 [facility] HAND 6 BRACING, BRACING, ORTHOSIS INC INC EXT CONTROL COCK-UP PREFAB RADIOLOGI 24781 [facility] EXAM 6 SABA CHEST 2 RADIOLOGY VIEWS ASSOCIAT FRONTAL&L ATERAL DRUG TST G0477 ABBIE ABBIE PRESUMP;C 6 [facility] PBL BEING INC INC READ DC OPT OBV ONLY DRUG TEST G0481 ABBIE CUBAON DEFINITV [address] ID INC INC METH P DAY 8-14 DRUG CL ADMN SET A7005 AMAYA AMAYA W/SM VOL 6 HOME HOME NONFILTR MEDICAL MEDICAL NEBULIZR EQUIPME EQUIPME NON-DISPB L COLLECTIO 41154 [facility] N VENOUS 6 Y Y BLOOD [facility] VENIPUNCT URE RADEX 54875 [facility] HAND 2 6 Y Y VIEWS [facility] RADEX 19796 [place] WRIST 2 6 MEDICAL NARESH VIEWS SERV FOUNDATIO N COMPREHEN 29626 [facility] SIVE 6 Y Y [facility] PANEL BLOOD 27453 [facility] [place] [facility] COUNT 6 Y Y COMPLETE [facility] AUTO&AUTO DIFRNTL WBC RADEX 55829 [facility] SHOULDER 6 Y Y COMPLETE [facility] MINIMUM 2 VIEWS SEDIMENTA 95087 [facility] 6 Y Y RBC [facility] AUTOMATED DRUG TST G0477 ABBIE LEIVA PRESUMP;C 6 [facility] PBL BEING INC INC READ DC OPT OBV ONLY 25 95870 [facility]I HYDROXY 6 [facility] INCLUDES [facility] HOLDINGS FRACTIONS IF PERFORMED COMPREHEN 40766 LAB [facility] LAB SHERI SIVE 6 [facility] PANEL BLOOD 68963 LAB [facility] LAB [facility] COUNT 6 [facility] COMPLETE [facility] AUTO&AUTO DIFRNTL WBC LACTATE 38503 [facility] DEHYDROGE 6 [facility] NASE [facility] 58543 [facility] 6 EMILY LEE DAY PHYSICIAN FANNYALNABILA MANAGEMEN SERVI MAR T > [address] [facility] 6 EMILY LEE CARE/DAY PHYSICIAN DECALVO 30 SERVI MAR MINUTES DRUG TST G0477 ABBIE LEIVA PRESUMP;C 6 [facility] PBL BEING INC INC READ DC OPT OBV ONLY DRUG TST G0477 ABBIE LEIVA PRESUMP;C 6 [facility] PBL BEING INC INC READ DC OPT OBV ONLY RADIOLOGI 03060 [facility] C EXAM 6 [place] CHEST 2 RADIOLOGY VIEWS ASSOCIAT FRONTAL&L ATERAL DRUG 53308 ABBIE LEIVA SCREENING 6 [facility] INC INC BENZODIAZ EPINES 1-12 DRUG TST G0477 ABBIE LEIVA PRESUMP;C 6 [facility] PBL BEING INC INC READ DC OPT OBV ONLY 3D 59919 ARLENE RUSHING RENDERING 6 REGIONAL GLE W/INTERP MEDICAL & HORACIO POSTPROCE SS SUPERVISI ON CT THORAX 38586 ARLENE MILLERMACK 6 REGIONAL GLE W/CONTRAS MEDICAL T HORACIO MATERIAL 25 09548 LAB [facility] LAB SHERI HYDROXY 6 [facility] INCLUDES [facility] FRACTIONS IF PERFORMED COMPREHEN 32965 LAB [facility] LAB SHERI SIVE 6 [facility] MET[facility]OL[facility] PANEL BLOOD 59255 LAB [facility] LAB SHERI COUNT 6 [facility] COMPLETE [facility] [facility] AUTO&AUTO DIFRNTL WBC LACTATE 80669 LAB [facility] LAB SHERI DEHYDROGE 6 [facility] NASE [facility] 3D 03022 [place] [facility] RENDERING 6 MEDICAL W/INTERP IMAGING & ASS POSTPROCE SS SUPERVISI [place] MRI 61511 [place] WILL ALL SPINAL 6 MEDICAL CANAL IMAGING LUMBAR ASS W/O CONTRAST MATERIAL ECG 73301 [facility] ROUTINE 6 EMILY ECG EMERGENCY W/LEAST PHYS 12 LDS I&R ONLY DRUG TST G0477 ABBIE LEIVA PRESUMP;C 6 [facility] PBL BEING INC INC READ DC OPT OBV ONLY ECG 93838 ABBIE LEIVA ROUTINE 5 [facility] ECG INC INC W/LEAST 12 LDS TRCG ONLY W/O I&R ECHO 58233 [facility] LERMA GRE TTHRC R-T 5 MEDICAL 2D SERV W/WOM-MOD FOUNDATIO E COMPL N SPEC&COLR D INJECTION J2405 AB[facility]E LEIVA 5 [facility] ONDANSETR INC INC ON HCL PER 1 MG LOCM Q9967 ABBIE ABBIE [phone] 5 [facility] MG/ML INC INC IODINE CONCENTRA TION PER ML INJECTION J1644 ABBIE LEIVA HEPARIN 5 [facility] SODIUM INC INC PER 1000 UNITS PROTHROMB 02899 ABBIE LEIVA IN TIME 5 [facility] INC INC BLOOD 79673 ABBIE LEIVA COUNT 5 [facility] COMPLETE INC INC AUTO&AUTO DIFRNTL WBC CATHETER C1725 ABBIE LEIVA TRANSLUMI 5 [facility] NAL INC INC ANGIOPLAS TY NON-LASER GUIDE C1769 ABBIE LEIVA WIRE 5 [facility] INC INC BASIC 90064 ABBIE LEIVA METABOLIC 5 [facility] PANEL INC INC CALCIUM TOTAL THROMBOPL 99764 BABIE LEIVA ASTIN 5 [facility] TIME INC INC PARTIAL PLASMA/WH OLE BLOOD CATH PLMT 73101 ABBIE LEIVA L HRT & 5 [facility] ARTS INC INC W/NJX & ANGIO IMG S&I RADEX 29085 [place] BEINE SHOULDER 5 MEDICAL JOELLE COMPLETE IMAGING MINIMUM 2 ASS VIEWS RADIOLOGI 37670 [facility] C EXAM 5 EIDER GIOVANNA CHEST 2 RADIOLOGY VIEWS ASSOCIAT FRONTAL&L ATERAL BLOOD 59647 LAB [facility] LAB [facility]ERI COUNT 5 [facility] COMPLETE [facility] AUTO&AUTO DIFRNTL WBC LACTATE 67878 LAB [facility] LAB SHERI DEHYDROGE 5 [facility] NASE [facility] 25 00515 LAB [facility] LAB SH[facility]I HYDROXY 5 [facility] INCLUDES [facility]INGS HOLDINGS FRACTIONS IF PERFORMED COMPREHEN 46044 LAB [facility] LAB SHERI SIVE 5 MARVA MRAVA METABOLIC [facility] PANEL RADEX 02100 [facility] COLON 5 W/SPEC HI RADIOLOGY RADIOLOGY DNS ASSOCIAT ASSOCIAT BARIUM W/WO GLUCAGON INJECTION J2250 ARLENE JACOBS 5 CO CO [facility] HCL PER 1 MG EGD 93985 ARLENE YORKA TRANSORAL 5 CO HOSP LIAM BIOPSY SINGLE/MU LTIPLE RINGERS J7120 ARLENE JACOBS LACTATE 5 CO CO INFUSION [facility] UP TO 1000 CC COLONOSCO 07844 ARLENE DIAZ PY 5 CO HOSP LIAM W/BIOPSY SINGLE/[place] [address] ARLENE JACOBS SURG 5 CO CO PATHOLOGY [facility] GROSS&AIYANA ROSCOPIC EXAM INJECTION J2405 ARLENE JACOBS 5 CO CO [facility] ON HCL PER 1 MG CUL BACT 31741 ARLENE JACOBS AEROBIC 5 CO CO [facility] METHS DEFINITIV E EA ISOL INJECTION J3010 ARLENE JACOBS FENTANYL 5 CO CO CITRATE [facility] 0.1 MG ANES 09879 ARLENE MEDRANO [facility] UPPER GI [address] [place] [address] PROXIMAL TO DUODENUM RADIOLOGI 72027 [facility] C EXAM 5 EMILY CHEST 2 EMERGENCY VIEWS PHYS FRONTAL&L ATERAL ADMN SET A7005 YOUR YOUR W/SM VOL 5 PHARMACY PHARMACY [facility] NEBULIZR NON-DISPB L THERAPEUT 45566 [facility] 5 PHYSICIAN AIYANA PROPHYLAC S GROUP TIC/DX INJECTION SUBQ/IM RADIOLOGI 84722 [facility] C EXAM 5 EMILY JAM CHEST 2 EMERGENCY VIEWS PHYS FRONTAL&L ATERAL ECG 18846 [facility] ROUTINE 5 EMILY JAM ECG EMERGENCY W/LEAST PHYS 12 LDS I&R ONLY INJECTION J1040 [facility] MOI 5 PHYSICIAN AIYANA METHYLPRE S GROUP DNISOLONE ACETATE 80 MG INJECTION J0696 [facility] 5 PHYSICIAN AIYANA CEFTRIAXO S GROUP NE SODIUM [place] [address] [place] [address] ARLENE JACOBS TROPONIN [address] [facility] YVETTE BLOOD 86469 ARLENE JACOBS COUNT 5 CO CO [facility] AUTO&AUTO DIFRNTL WBC URNLS DIP 41016 ARLENE JACOBS 5 CO CO STICK/TAB HOSPITAL HOSPITAL LET REAGENT AUTO MICROSCOP Y RADIOLOGI 51491 ARLENE JACOBS C EXAM 5 CO CO CHEST 2 HOSPITAL HOSPITAL VIEWS FRONTAL&L ATERAL COLLECTIO 47538 ARLENE JACOBS N VENOUS 5 CO [facility] VENIPUNCT URE CREATINE 14751 ARLENE JACOBS KINASE MB 5 CO [facility] ONLY COMPREHEN 90549 ARLENE JACOBS SIVE 5 CO AR METABOLIC [facility] PANEL CREATINE 01001 ARLENE JACOBS KINASE 5 CO CO TOTAL [facility] THER 96731 ARLENE JACOBS PROPH/DX 5 CO CO NJX IV [facility] PUSH SINGLE/1S T SBST/DRUG ECG 07565 ARLENE JACOBS ROUTINE 5 CO [facility] W/LEAST 12 LDS TRCG ONLY W/O I&R UNCLASSIF J3490 ARLENE JACOBS IED DRUGS 5 CO [facility] ECG 58853 [facility] 5 EMILY JAM ECG EMERGENCY W/LEAST PHYS 12 LDS I&R ONLY RADIOLOGI 82481 [facility] C 5 EMILY JAM EXAMINATI EMERGENCY ON CHEST PHYS SINGLE VIEW FRONTAL BLOOD 38069 ARLENE JACOBS COUNT 5 CO [facility] AUTO&AUTO DIFRNTL WBC RADIOLOGI 37620 ARLENE JACOBS C EXAM 5 CO AR CHEST 2 [facility] VIEWS FRONTAL&L ATERAL SEDIMENTA 75197 ARLENE JACOBS TION RATE 5 CO CO RBC [facility] NON-AUTOM ATED COMPREHEN 11270 ARLENE JACOBS SIVE 5 CO CO METABOLIC [facility] PANEL RADEX 04356 [place] [facility] WRIST 2 5 MEDICAL Y JUS VIEWS SERV FOUNDATIO N RADEX 09934 [place] [facility] SPINE 5 MEDICAL Y JUS LUMBOSACR SERV AL 2/3 FOUNDATIO VIEWS N RADIOLOGI 32853 [place] [facility] C 5 MEDICAL Y JUS EXAMINATI SERV ON KNEE FOUNDATIO 1/2 VIEWS N RADEX 39867 [place] EDNAGOMER HAND 2 5 MEDICAL Y JUS VIEWS SERV FOUNDATIO N RADIOLOGI 32708 [facility] C EXAM 5 MEDICAL AYA MAR CHEST 2 SERV VIEWS FOUNDATIO FRONTAL&L N ATERAL BLOOD 34621 LAB [facility] LAB SHERI COUNT 4 [facility] COMPLETE [facility] AUTO&AUTO DIFRNTL WBC BASIC 53618 LAB SH[facility] LAB SHERI METABOLIC 4 [facility] PANEL [facility] CALCIUM TOTAL FLUORODEO A9552 ALMAZ KOO XYGLUCOSE 4 Y MEDICAL [facility] F-18 FDG CLINIC DX UP TO 45 MCI PET 76234 [facility] ARUNAAN IMAGING 4 Y MED[address] [place] [address] JACOBS СЕРГЕЙ ABDOMEN & 4 REGIONAL GLE PELVIS MEDICAL W/O HORACIO CONTRAST MATERIAL CT THORAX 29265 JACOBS СЕРГЕЙ W/O 4 REGIONAL GLE CONTRAST MEDICAL MATERIAL HORACIO RADEX 25693 ARLENE FRANKSMING SPINE 4 CO CO [facility] AL MINIMUM 4 VIEWS 25 58521 LAB SHERI LAB SHERI HYDROXY 4 MARVA MARVA INCLUDES [facility] FRACTIONS IF PERFORMED COMPREHEN 91315 LAB SHER[facility] LAB SHERI SIVE 4 [facility] METABOLIC [facility] PANEL BLOOD 89859 LAB SH[facility] LAB SHERI COUNT 4 [facility] COMPLETE [facility] AUTO&AUTO DIFRNTL WBC IMMUNOASS 04649 LAB [facility] SHERI AY TUMOR 4 [facility] ANTIGEN [facility] HOLDINGS QUANTITAT YVETTE CA 15-3 LACTATE 98834 LAB SHERI LAB SHERI DEHYDROGE 4 MARVA MARVA NASE [facility] LIPID 78782 [facility] PANEL 4 DIAGNOSTI DIAGNOSTI [facility] [place] [address] [facility] FREE 4 DIAGNOSTI DIAGNOSTI THYROXINE [facility] GENERAL 59009 [employer] HEALTH 4 DIAGNOSTI DIAGNOSTI PANEL [facility] ADMN SET A7005 YOUR YOUR W/SM VOL 4 PHARMACY [facility] NE[facility]UL[facility] NON-DISPB L DRUG SCR G0434 GIOVANNY HAM GIOVANNY HAM NOT 4 CHROMATOG RAPHIC; ANY NUMBER PT ENC DRUG SCR G0434 GIOVANNY HAM GIOVANNY HAM NOT 4 CHROMATOG RAPHIC; ANY NUMBER PT ENC PRESSURIZ 33978 ARLENE JACOBS ED/NONPRE 4 CO CO SSURIZED [facility] INHALATIO N TREATMENT INJECTION J0744 ARLENE JACOBS 4 CO CO CIPROFLOX [facility] ACIN INTRAVENO US INFUS 200 MG INJECTION J2250 ARLENE JACOBS 4 CO CO MIDAZOLAM [facility] HCL PER 1 MG INJECTION J0330 ARLENE JACOBS 4 CO CO SUCCINYLC [facility] HOLINE CHLORIDE UP TO 20 MG INJECTION J2550 ARLENE JACOBS 4 CO CO [facility] INE HCL UP TO 50 MG INJECTION J2405 ARLENE JACOBS 4 [facility] PER 1 MG INJECTION J1170 ARLENE JACOBS 4 [facility] UP TO 4 MG RINGERS J7120 ARLENE JACOBS LACTATE 4 CO CO INFUSION [facility] UP TO 1000 CC INJECTION J1100 ARLENE JACOBS 4 CO CO DEXAMETHO [facility] SONE SODIUM PHOSPHATE 1 MG ANES LWR 92255 ARLENE ANDRÉS ALFONZO ABD 4 [facility] L HERNIA REPAIR LAPS RPR 03850 ARLENE JACOBS INCISIONA 4 CO CO L HERNIA [facility] NCRC8/STR ANGULATED INFUSION J7050 ARLENE JACOBS NORMAL 4 CO CO SALINE [facility] SOLUTION 250 CC INJECTION J3010 ARLENE JACOBS FENTANYL 4 CO CO CITRATE [facility] 0.1 MG INJECTION J2710 ARLENE JACOBS 4 CO CO NEOSTIGMI [facility] NE METHYLSUL FATE UP TO 0.5 MG ECG 15864 ARLENE JACOBS ROUTINE 4 CO CO ECG HOSPITAL HOSPITAL W/LEAST 12 LDS TRCG ONLY W/O I&R RADIOLOGI 40947 ARLENE JACOBS C EXAM 4 CO CO CHEST 2 [facility] VIEWS FRONTAL&L ATERAL BLOOD 80306 ARLENE JACOBS COUNT 4 CO CO COMPLETE [facility] AUTO&AUTO DIFRNTL WBC URNLS DIP 76760 ARLENE JACOBS 4 CO CO STICK/TAB HOSPITAL HOSPITAL LET REAGENT AUTO MICROSCOP Y BASIC 11360 [facility] METABOLIC 4 CO [facility] CALCIUM TOTAL URINLS 23321 ARIANA DIAZ- DIP 4 [facility] [place] STICK/TAB LET REAGNT NON-AUTO MICRSCPY THERAPEUT 16140 ARIANA ARIANA IC 4 CLINIC CLINIC PROPHYLAC TIC/DX INJECTION SUBQ/IM THERAPEUT 92779 KENYA KENYA IC 4 HEN HEN PROPHYLAC TIC/DX INJECTION SUBQ/IM THERAPEUT 57915 ARIANA ARIANA IC 4 CLINIC CLINIC PROPHYLAC TIC/DX INJECTION SUBQ/IM INJECTION J1030 ARIANA DIAZ- 4 [facility] [place] METHYLPRE DNISOLONE ACETATE 40 MG THERAPEUT 79341 KENYA KENYA IC 4 HEN HEN PROPHYLAC TIC/DX INJECTION SUBQ/IM COMPUTER- 93904 ABBIE LEIVA AIDED 4 [facility] DETECTION INC INC SCREENING MAMMOGRAP HY SCREENING G0202 BEINEKE D BEINEKE D 4 MAMMOGRAP HY REID INCL CAD WHEN PERFORMD THERAPEUT 32555 ARIANA KENYA IC 4 CLINIC HEN PROPHYLAC TIC/DX INJECTION SUBQ/IM COMPREHEN 93238 LAB [facility] LAB SHERI SIVE 4 [facility] METABOLIC [place] [address] LAB SHERI LAB SHERI FOLIC 4 MARVA [facility] ACID [place] [address] LAB SHERI LAB SHERI IRON 4 MAR[facility] INJECTION J3420 ARIANA DIAZ- VIT B-12 4 [facility] [place] CYANOCOBA KAILEY TO 1000 MCG THERAPEUT 56481 ARIANA DIAZ- IC 4 [facility] [place] PROPHYLAC TIC/DX INJECTION SUBQ/IM CYANOCOBA 69446 LAB SHERI LAB SHERI KAILEY 4 [facility]VA [facility] VITAMIN [facility]INGS B-12 25 34572 LAB SH[facility]I LAB SHERI HYDROXY 4 [facility]VA [facility]VA INCLUDES [facility]INGS HOLDINGS FRACTIONS IF PERFORMED ORGANIC 63916 LAB [facility] LAB SHERI ACID 1 4 [facility] QUANTITAT [facility] YVETTE BLOOD 19655 LAB SH[facility] LAB SHERI COUNT 4 [facility] COMPLETE [facility] AUTOMATED IRON 69268 LAB [facility] LAB SHERI BINDING 4 [facility] CAPACITY [facility] COLLECTIO 50226 ARIANA ARIANA N VENOUS 4 CLINIC CLINIC BLOOD VENIPUNCT URE TB CELL 99458 [facility] MEDIATED [address] [facility] RESPNSE HOSPITA HOSPITA GAMMA INTERFERO N ANTIBODY 23999 [facility] BLASTOMYC [address] [facility] HOSPITA HOSPITA ANTIBODY 86323 [facility] COCCIDIOI [address] [facility] HOSPITA HOSPITA ANTIBODY 69306 [facility] HISTOPLAS [address] [facility] HOSPITA HOSPITA COLLECTIO 58697 [facility] N VENOUS [address] [facility] URE COLLECTIO 40240 ARLENE JACOBS N VENOUS 4 [facility] [place] [address] [facility] THYROID 4 [facility] NG HORMONE TSH CALCIUM 26261 [facility] TOTAL [facility] [place] [address] [facility] THYROXINE [address] [facility] [address] THORAX 46639 CISCO CISCO W/O 4 [place] [address] LABORATOR LABORATOR SURG 4 Y Y PATHOLOGY CORPORATI CORPORATI ON OF AM ON OF AM GROSS&AIYANA ROSCOPIC EXAM COLLECTIO 18142 ARIANA DIAZ- N VENOUS 4 [facility] BLOOD VENIPUNCT URE BLOOD 01951 [facility] COUNT 4 [facility] AUTOMATED LIPID 44499 [facility] PANEL 4 [facility] CRYOTHERA 80564 ARIANA DIAZ- PY CO2 4 [facility] SLUSH LIQUID N2 ACNE COMPREHEN 19832 [facility] SIVE 4 [facility] METABOLIC [facility] PANEL ECG 90040 BUSHRA CARRASQUILLO ROUTINE 4 MEDICAL NAN ECG SERV W/LEAST FOUNDATIO 12 LDS N I&R ONLY LEVEL V 20566 ANNMARIE ANNMARIE SURG 4 KARINA KARINA PATHOLOGY GROSS&[place] [address] ANNMARIE ANNMARIE SURG 4 KARINA KARINA PATHOLOGY GROSS&AIYANA ROSCOPIC EXAM PATH 48535 ANNMARIE ANGUIANO CONSLTJ 4 KARINA KARINA SURG 1ST BLK FROZEN SCTJ 1 SPEC TOTAL 83169 KAYLYNN CHAIDEZ THYROID 4 NHAN NHAN LOBEC UNI W/CONTRAL AT [facility] LOBEC ANES 52064 MALONE AIYANA MALONE AIYANA ESOPH 4 THYRD LARYNX TRACH & LYMPH NECK 1YR BX/EXC 70400 KAYLYNN CHAIDEZ LYMPH 4 NHAN NHAN NODE OPEN DEEP CERVICAL NODE ADMN SET A7005 YOUR YOUR W/SM VOL 4 [facility] NON-DISPB L RADEX 10023 ARLENE JACOBS COLON 4 CO CO W/SPEC [facility] DNS BARIUM W/WO GLUCAGON EGD 18613 SANKET FELIPENS TRANSORAL 4 LAR LAR BIOPSY SINGLE/MU LTIPLE INJECTION J2250 JACOBS JACOBS 4 CO CO [facility] HCL PER 1 MG CUL BACT 23394 JACOBS JACOBS AEROBIC 4 CO CO ADDL [facility] METHS DEFINITIV E EA ISOL ANES 53767 ARLENE JACOBS UPPER GI 4 CO CO ENDOSCOPY [facility] PROXIMAL TO DUODENUM INJECTION J3010 JACOBS JACOBS FENTANYL 4 CO CO CITRATE [facility] 0.1 MG RINGERS J7120 JACOBS JACOBS LACTATE 4 CO CO INFUSION [facility] UP TO [address] [place] [address] ARLENE JACOBS SURG 4 CO CO PATHOLOGY [facility] GROSS&AIYANA ROSCOPIC EXAM CT SOFT 29000 VICENTE ZHANG TISSUE 4 SABA SABA NECK W/[place] [address] VICENTE ZHANG ABDOMEN & 4 SABA SABA PELVIS W/O CONTRAST MATERIAL AMB A0427 ARLENE JACOBS SERVICE [address] [place] [address] ALS AMB[facility]ANCE AMBULANCE EMERGENCY TRANSPORT LEVEL 1 GROUND A0425 ARLENE JACOBS [address] PER AMBULANCE AMBULANCE STATUTE MILE ECG 36793 SADEK MOH SADEK MOH ROUTINE 4 ECG W/LEAST 12 LDS I&R ONLY IRON 08290 LAB [facility] BINDING 4 OF [facility] CAPACITY [facility] RADEX 92934 [facility], [facility], FOREARM 2 4 PHARMACIST IN CHARGE PHARMACIST IN CHARGE VIEWS GISSELMarianne [facility] HOS [place] [address]47 [facility] KAILEY 4 OF [facility] VITAMIN [facility] [address] [address] [place] [address] [facility] IRON 4 OF [place] [address] [facility] FOLIC 4 OF [facility] ACID [facility] SERUM HOLDINGS BLOOD 96881 [facility] COUNT 4 OF [facility] COMPLETE [facility] AUTOMATED HOLDINGS COLLECTIO 21021 ARIANA DIAZ-DNONELL N VENOUS 4 [facility] BLOOD VENIPUNCT URE DRUG SCR G0434 GIOVANNY HAM GIOVANNY HAM NOT 4 CHROMATOG RAPHIC; ANY NUMBER PT ENC HEADGEAR A7035 AMAYA CONDE USED 4 HOME HOME W/POSITIV MEDICAL MEDICAL E AIRWAY EQUIPME EQUIPME PRESSURE DEVICE NASL A7034 AMAYA CONDE INTRFCE 4 HOME HOME POS ARWAY MEDICAL MEDICAL PRSS EQUIPME EQUIPME DEVC W/WO HEAD STRAP TUBING A7037 AMAYA CONDE USED WITH 4 HOME HOME POSITIVE MEDICAL MEDICAL AIRWAY EQUIPME EQUIPME PRESSURE DEVICE CANE INCL E0100 AMAYA CONDE CANES 4 HOME HOME ALL MEDICAL MEDICAL MATERIAL EQUIPME EQUIPME ADJUSTBLE /FIX W/TIP FILTER A7038 AMAYA CONDE DISPBL 4 HOME HOME USED MEDICAL MEDICAL W/POS EQUIPME EQUIPME ARWAY PRESSURE DEVICE URINLS 99719 ARIANA DIAZ- DIP 4 CLIN[facility] [address] [place] STICK/TAB LET REAGNT NON-AUTO MICRSCPY COMPREHEN 11224 JACOBS JACOBS SIVE 4 CO CO [facility] PANEL BLOOD 20678 JACOBS JACOBS COUNT 4 CO CO [facility] AUTO&AUTO DIFRNTL WBC PRESSURIZ 80117 JACOBS JACOBS ED/NONPRE 4 CO CO SSURIZED [facility] INHALATIO N TREATMENT INJECTION J1170 [facility] 4 CO CO HYDROMORP [facility] BARBI UP TO 4 MG INJECTION J1885 [facility] 4 CO CO KETOROLAC [facility] [place] [address] [place] [address] [facility] ABDOMEN & 4 SBAA SABA PELVIS W/O CONTRST 1/> BODY RE CT THORAX 65503 [facility] W/O 4 N N CONTRAST COMMUNTIY COMMUNTIY MATERIAL HOSPITA HOSPITA BRNCDILAT 64310 [facility] RSPSE 4 N N SPMTRY COMMUNTIY COMMUNTIY PRE&POST- [place] [address] [facility] DIFFUSING 4 N N CAPACITY COMMUNTIY COMMUNTIY HOSPITA HOSPITA PLETHYSMO 16445 [facility] GRAPHY 4 N N LUNG COMMUNTIY COMMUNTIY VOLUMES HOSPITA HOSPITA W/WO AIRWAY RESIST ADMN SET A7003 YOUR YOUR SM VOL 4 PHARMACY PHARMACY [facility] PNEUMAT NEBULIZR DISPBL COMPRE 27796 MANDY GALVAN AUDIOMETR 4 LIAM LIAM Y THRESHOLD EVAL SP RECOGNIJ TYMPANOME 86893 MANDY GALVAN TRY 4 LIAM LIAM US SOFT 00633 [facility] TISSUE 4 Y Y HEAD & H[facility]PITAL HOSPITAL NECK REAL TIME IMGE [facility] G0463 [facility] OUTPATI 4 Y Y T [facility] VISIT ASSESS & MGMT PT ADMN SET A7003 YOUR YOUR SM VOL 3 PHARMACY PHARMACY NONFILTR LLC LLC PNEUMAT NEBULIZR DISPBL SEDIMENTA 88663 [facility] TION RATE 3 Y Y RBC [facility] AUTOMATED LARYNGOSC 21798 MANDY GALVAN OPY 3 LIAM LIAM FLEXIBLE DIAGNOSTI C BLOOD 71992 [facility] [place] [facility] COUNT 3 Y Y COMPLETE [facility] AUTO&AUTO DIFRNTL WBC COMPREHEN 52473 [facility] SIVE 3 Y Y METABOLIC [facility] [place] [address] [facility] THYROID 3 Y Y STIMULATI [facility] [place] [address] [facility] FREE 3 Y Y THYROXINE [facility] DRUG SCR G0434 GIOVANNY RICHARDSON NOT 3 CHROMATOG RAPHIC; ANY NUMBER PT ENC INJECTION J0696 ARIANA DIAZ- [address] [facility] CEFTRIAXO NE SODIUM PER [address] IC 3 CLINIC CLINIC PROPHYLAC TIC/DX INJECTION SUBQ/IM HOSPITAL 82544 [facility] DISCHARGE 3 IBR IBR DAY MANAGEMEN T 30 MIN/< US SOFT 61246 VICENTE MERCEDESMAN TISSUE 3 SABA SABA HEAD & NECK REAL TIME IMGE DOCM SBSQ 50804 [facility] 3 IBR IBR CARE/DAY 25 MINUTES RADIOLOGI 77633 VICENTE ZHANG C EXAM 3 SABA SABA CHEST 2 VIEWS FRONTAL&L ATERAL INITIAL 56340 [facility] 3 LEE LEE CARE/DAY DECALVO DECALVO 50 MAR MAR MINUTES RADIOLOGI 86664 VICENTE ZHANG C 3 SABA SABA EXAMINATI ON CHEST SINGLE VIEW FRONTAL CT THORAX 67246 [facility] 3 AGUILAR SHEIKH W/CONTRAS T PHYSICIAN PHYSICIAN MATERIAL S DECEMBER S DECEMBER LOCM Q9967 ST ST 300-399 3 AGUILAR SHEIKH MG/ML IODINE PHYSICIAN PHYSICIAN CONCENTRA S DECEMBER S DECEMBER TION PER ML RADIOLOGI 67121 ELSA HUNTER C EXAM 3 [facility] CHEST 2 VIEWS FRONTAL&L ATERAL RADIOLOGI 02197 JESSE AVELAR C EXAM 3 EMERGENCY MAR CHEST 2 SERVICES VIEWS FRONTAL&L ATERAL FILTER A7038 AMAYA CONDE DISPBL 3 HOME HOME USED MEDICAL MEDICAL W/POS EQUIPME EQUIPME ARWAY PRESSURE DEVICE CUSHN A7032 AMAYA CONDE NASAL 3 HOME HOME MASK MEDICAL MEDICAL INTERFACE EQUIPME EQUIPME REPLACEME NT ONLY EACH ADMN SET A7003 YOUR YOUR SM VOL 3 [facility] [place] [address] ARLENE BOWMAN KRISTEN LIPASE 3 CO HOSPITAL INJECTION J0500 ARLENE JACOBS 3 CO CO DICYCLOMI [facility] NE HCL UP TO 20 MG COMPREHEN 72515 ARLENE JACOBS SIVE 3 CO CO [facility] [place] [address] ARLENE JACOBS AMYLASE 3 CO [facility] INJECTION J2405 ARLENE JACOBS 3 CO CO [facility] ON HCL PER 1 MG INFUSION J7050 ARLENE JACOBS NORMAL 3 CO CO SALINE [facility] SOLUTION 250 CC BLOOD 28678 ARLENE JACOBS COUNT 3 CO CO [facility] AUTO&AUTO DIFRNTL WBC URNLS DIP 97142 ARLENE JACOBS 3 CO CO STICK/TAB HOSPITAL [facility] [address] ELSA HUNTER ABDOMEN & 3 CALVIN CALVIN PELVIS W/CONTRAS T MATERIAL RADIOLOGI 33620 [facility] C EXAM 3 SABA SABA CHEST 2 VIEWS FRONTAL&L ATERAL SKIN TEST 53656 SHELLEY ROSA 3 [place] [place] TUBERCULO SIS INTRADERM AL BLOOD 03573 LAB SHER[facility] LAB SHERI COUNT 3 MARVA MARVA COMPLETE [employer] AUTOMATED LIPID 70965 LAB [facility] SH[facility]I PANEL 3 MARVA MARVA [employer] [facility] HEMOGLOBI 09271 LAB [facility] SHERI N 3 MARVA MARVA GLYCOSYLA HOLDINGS HOLDINGS KAMLA A1C COMPREHEN 00093 LAB [facility] SIVE 3 [facility] METABOLIC [facility]INGS HOLDINGS PANEL ADMN SET A7003 YOUR YOUR SM VOL 3 PHARMACY PHARMACY [facility] [place] [address] ABBIE LEIVA LIPASE 3 MEM HOSP MEM [facility]OS[facility] INC INC BLOOD 31367 ABBIE LEIVA COUNT 3 MEM HOS[facility] MEM HOSP COMPLETE INC INC AUTO&AUTO DIFRNTL WBC COMPREHEN 64253 ABBIE LEIVA SIVE 3 MEM HOS[facility] [address] ABBIE LEIVA AMYLASE 3 MEM HOSP MEM [facility]OS[facility] INC INC DRUG SCR G0434 GIOVANNY RICHARDSON NOT 3 CHROMATOG RAPHIC; ANY NUMBER PT ENC RADIOLOGI 17342 Mov[facility], Movatu, C EXAM 3 PHARMACIST IN CHARGE PHARMACIST IN CHARGE CHEST 2 GISSEL GISSEL VIEWS CO HOS CO HOS FRONTAL&L ATERAL DRUG SCR G0434 GIOVANNY RICHARDSON NOT 3 CHROMATOG RAPHIC; ANY NUMBER PT ENC CUSHN A7032 AMAYA AMAYA NASAL 3 HOME HOME MASK MEDICAL MEDICAL INTERFACE EQUIPME EQUIPME REPLACEME NT ONLY EACH FILTER A7038 AMAYA AMAYA DISPBL 3 HOME HOME USED MEDICAL MEDICAL W/POS EQUIPME EQUIPME ARWAY PRESSURE DEVICE COMPREHEN 83850 Mov[facility], Movatu, SIVE 3 PHARMACIST IN CHARGE PHARMACIST IN CHARGE METABOLIC GISSEL GISSEL [place] [address] ThisClicks, AMYLASE 3 PHARMACIST IN CHARGE PHARMACIST IN CHARGE GISSEL GISSEL CO HOS CO HOS BLOOD 88262 ThisClicks, COUNT 3 PHARMACIST IN CHARGE PHARMACIST IN CHARGE COMPLETE GISSEL GISSEL AUTO&AUTO [place] [address] ThisClicks, LIPASE 3 PHARMACIST IN CHARGE PHARMACIST IN CHARGE GISSEL GISSEL CO HOS CO HOS ADMN SET A7003 YOUR YOUR SM VOL 3 PHARMACY [facility] PNEUMAT NEBULIZR DISPBL CYSTO 91315 [facility] BLADDER 3 CONFUCIANISM CONFUCIANISM W/URETERA HOSP HOSP L CATHETERI ZATION INJECTION J3010 [facility] FENTANYL 3 CONFUCIANISM CONFUCIANISM [facility] 0.1 MG CATHETER C1758 [facility] URETERAL 3 CONFUCIANISM CONFUCIANISM HOSP HOSP GLUC BLD 88611 [facility] GLUC MNTR 3 CONFUCIANISM CONFUCIANISM DEV HOSP HOSP CLEARED FDA SPEC HOME USE BLOOD 07894 [facility] COUNT 3 CONFUCIANISM CONFUCIANISM COMPLETE HOSP HOSP AUTOMATED PRESSURIZ 51871 [facility] ED/NONPRE 3 CONFUCIANISM CONFUCIANISM SSURIZED HOSP HOSP INHALATIO N TREATMENT ANES 19023 [facility] TRANSURET 3 HRAL W/URETHRO CYSTOSCOP Y NOS ECG 58698 ARTHUR ARTHUR ROUTINE 3 SOREN SOREN ECG W/LEAST 12 LDS I&R ONLY INJECTION J2405 [facility] 3 CONFUCIANISM CONFUCIANISM ONDANSETR HOSP HOSP ON HCL PER 1 MG LOCM Q9967 [facility] 300-399 3 CONFUCIANISM CONFUCIANISM MG/ML HOSP HOSP IODINE CONCENTRA TION PER ML X-RAY 57622 [facility] ADA URINARY 3 RADIOLOGY TRACT ASSOC EXAM WITH CONTRAST MATERIAL DILAT 85596 MAHNAZ JOYA JR FEMALE 3 SOREN SOREN URETHRA W/SUPPOSI TORY&/INS TLJ INI URNLS DIP 45714 MAHNAZ JOYA JR 3 SOREN SOREN STICK/TAB LET RGNT NON-AUTO W/O MICRSCP NELSON 63831 MAHNAZ JOYA JR POST-VOID 3 SOREN SOREN ING RESIDUAL URINE&/BL ADDER CAP ADMN SET A7003 YOUR YOUR SM VOL 3 PHARMACY PHARMACY NONFILTR [facility] PNEUMAT NEBULIZR DISPBL GLUC BLD 43165 ARIANA ZAMBRANO GLUC MNTR 3 CLINIC HEN [place] [address] ABBIE LEIVA TRANSVAGI 3 MEM [facility]OS[facility] NAL INC INC COMPUTER- 01496 ABBIE LEIVA AIDED 3 MEM HOSP MEM HOSP DETECTION INC INC SCREENING MAMMOGRAP HY SCREENING G0202 ABBIE LEIVA 3 MEM HOSP MEM HOSP MAMMOGRAP INC INC HY REID INCL CAD WHEN PERFORMD BLOOD 05358 [facility] OCCULT 3 KELLY KELLY PEROXIDAS E ACTV QUAL FECES 1-3 SPEC CULTURE 78936 [facility] CHLAMYDIA 3 KELLY KELLY ANY SOURCE IADNA 57922 [facility] NEISSERIA 3 KELLY KELLY GONORRHOE AE DIRECT PROBE TQ URINLS 36477 [facility] DIP 3 KELLY KELLY STICK/TAB LET REAGNT NON-AUTO MICRSCPY HEMOGLOBI 03785 LAB SHERI LAB SHERI N 3 MARVA MARVA GLYCOSYLA [employer] KAMLA A1C COMPREHEN 79141 LAB [facility] LAB SHERI SIVE 3 MARVA MARVA METABOLIC [employer] PANEL AMB A0427 GHANAIAN GHANAIAN SERVICE 3 AMBULETT AMBULETT ALS & & EMERGENCY AMBULANC AMBULANC TRANSPORT LEVEL 1 GROUND A0425 GHANAIAN GHANAIAN MILEAGE 3 [facility] AM[facility] PER & & [place] [address] DANIEL MAT DANIEL MAT ABDOMEN & 3 PELVIS W/CONTRAS T MATERIAL TUBING A7037 AMAYA CONDE USED WITH 3 HOME HOME POSITIVE MEDICAL MEDICAL AIRWAY EQUIPME EQUIPME PRESSURE DEVICE FULL FACE A7030 AMAYA AMAYA MASK 3 HOME HOME USED MEDICAL MEDICAL W/POS EQUIPME EQUIPME ARWAY PRESS DEVICE EA HEADGEAR A7035 AMAYA CONDE USED 3 HOME HOME W/POSITIV MEDICAL MEDICAL E AIRWAY EQUIPME EQUIPME PRESSURE DEVICE ADMN SET A7003 YOUR YOUR SM VOL 3 PHARMACY PHARMACY [facility] PNEUMAT NEBULIZR DISPBL PRESSURIZ 62566 J[facility]US [facility] ED/NONPRE 3 [facility] INHALATIO N TREATMENT CUL BACT 34464 JESUS HUNTERSTEVE XCPT 3 [facility] BLOOD/STO OL AEROBIC ISOL CUL BACT 86658 CLIVE HUNTERON AEROBIC 3 [facility] METHS DEFINITIV E EA ISOL SMR PRIM 76172 [facility] SRC 3 [facility] SA STAIN BCT FUNGI/SHUBHAM L SUSCEPTIB 19916 [facility] HUNTER LTY STDY 3 [facility] IAL MICRO/[place] [address] [facility] TROPONIN 3 [facility] YVETTE BLOOD 73619 [facility] HUNTERSTEVE GASES ANY 3 [facility] COMBINATI ON PH PCO2 PO2 CO2 HCO3 BLOOD 32482 [facility] H[facility]ISON[facility] COUNT 3 [facility] AUTOMATED CULTURE 26250 CLIVE HUNTERON BACTERIAL 3 [facility] AEROB[facility] W/ID ISOLATES CULTURE 39188 [facility] BACTERIAL 3 ED [facility] HOSPITAL QUANTTATI VE COLONY COUNT URINE COMPREHEN 29473 [facility] SIVE [address] [facility] METABOLIC HOSPITAL HOSPITAL PANEL CREATINE 66881 JESUS LEE KINASE MB 3 [facility] HOSPITAL HOSPITAL ONLY HOSPITAL G0378 JESUS LEE OBSERVATI 3 [facility] ON HOSPITAL HOSPITAL SERVICE PER HOUR RADIOLOGI 43349 DANIEL MAT DANIEL MAT C EXAM 3 CHEST 2 VIEWS FRONTAL&L ATERAL URNLS DIP 37493 [facility] [address] [place] [address] STICK/TAB HOSPITAL HOSPITAL LET REAGENT AUTO MICROSCOP Y CPAP 76636 [facility] VENTILATI 3 [facility] ON CPAP HOSPITAL HOSPITAL INITIATIO N&MGMT PRESSURIZ 53248 [facility] LEE ED/NONPRE 3 [facility] SSURIZED HOSPITAL HOSPITAL INHALATIO N TREATMENT SBSQ 88843 YOSELIN YOSELIN OBSERVATI 3 NURY IGN NURY IGN ON CARE/DAY 15 MINUTES CREATINE 65404 [facility] KINASE [address] [facility] TOTAL HOSPITAL HOSPITAL FIBRIN 39244 [facility] DGRADJ [address] [facility] PRODUCTS HOSPITAL HOSPITAL D-DIMER QUANTITAT YVETTE ECG 54907 [facility] ROUTINE 3 [facility] ECG HOSPITAL HOSPITAL W/LEAST 12 LDS TRCG ONLY W/O I&R ADMN SET A7003 YOUR YOUR SM VOL 3 PHARMACY PHARMACY NONFILTR [employer] PNEUMAT NEBULIZR DISPBL CUSHN A7032 AMAYA CONDE NASAL 3 HOME HOME MASK MEDICAL MEDICAL INTERFACE EQUIPME EQUIPME REPLACEME NT ONLY EACH FILTER A7038 AMAYA CONDE DISPBL 3 HOME HOME USED MEDICAL MEDICAL W/POS EQUIPME EQUIPME ARWAY PRESSURE DEVICE ADMN SET A7003 YOUR YOUR SM VOL 3 PHARMACY PHARMACY NONFILTR [employer] PNEUMAT NEBULIZR DISPBL 3D 08817 ABBIE ABBIE RENDERING 3 MEM [facility] INC INC W/INTERP& [place] [address] TYRONE TYRONE ABDOMEN & 3 COURTNEY COURTNEY PELVIS W/CONTRAS T MATERIAL LOCM Q9967 ABBIE LEIVA 300-399 3 MEM HOSP MEM HOSP MG/ML INC INC IODINE CONCENTRA TION PER ML US SOFT 78188 [facility] 3 Y Y HEAD & [facility] HOSPITAL [place] [address] ABBIE LEIVA UREA 3 MEM H[facility]P [facility] NITROGEN INC INC QUANTITAT YVETTE CREATININ 91652 ABBIE LEIVA E BLOOD 3 MEM HOSP MEM HOSP INC INC ADMN SET A7003 YOUR YOUR SM VOL 3 [facility] PNEUMAT NEBULIZR DISPBL CV STRS 46852 KELLOGG CORNELIO LAWRENCEYA CORNELIO TST 3 XERS&/OR RX CONT ECG W/O I&R TECHNETIU A9500 [facility] TC-99M 3 Y Y [facility] DX PER STUDY DOSE CV STRS 65474 [facility] 3 Y Y XERS&/OR HOSPITAL HOSPITAL RX CONT ECG TRCG ONLY INJECTION J2785 [facility] 3 Y Y [facility] ON 0.1 MG CV STRS 50256 BESS CORNELIOPamela KELLOGG CORNELIO TST 3 XERS&/OR RX CONT ECG I&R ONLY MYOCARDIA 60054 [facility] SPECT 3 Y Y [facility] STUDIES RADIOLOGI 50448 [employer], [employer], C EXAM 3 PHARMACIST IN CHARGE PHARMACIST IN CHARGE CHEST 2 GISSEL CHAUHAN VIEWS CO HOS CO HOS FRONTAL&L ATERAL INJECTION J0696 CANDIDA TIRADO 3 Aug CEFTRIAXO NE SODIUM PER 250 MG THERAPEUT 19763 CANDIDA TIRADO IC 3 Aug PROPHYLAC TIC/DX INJECTION SUBQ/IM ECG 00470 KOREY DA SILVA ROUTINE 3 ECG W/LEAST 12 LDS I&R ONLY ECG 55303 CANDIDA TIRADO ROUTINE 3 Aug ECG W/LEAST [...] EQUIPME [place] [address] KARTHIK AIYANA KARTHIK AIYANA SURG 3 PATHOLOGY GROSS&AIYANA ROSCOPIC EXAM SPCL STN 65745 KARTHIK AIYANA KARTHIK AIYANA 2 I&R 3 EXCPT MICROORG/ ENZYME/IM CYT ANES 91713 COMMUNITY ARZATE SOREN LOWER 3 ANESTH INTESTINE OF THE BLUE ENDOSCOPY DISTAL DUODENUM COLSC FLX 81562 CAMARILLO MOIRA CAMARILLO MOIRA W/RMVL 3 OF TUMOR POLYP LESION SNARE TQ COLONOSCO 33404 CAMARILLO MOIRA CAMARILLO MOIRA PY 3 W/BIOPSY SINGLE/MU LTIPLE EGD 26591 CAMARILLO MOIRA CAMARILLO MOIRA TRANSORAL 3 BIOPSY SINGLE/MU LTIPLE RADEX 24747 [facility] HAND 3 SABA MINIMUM 3 RADIOLOGY VIEWS ASSOCIAT LARYNGOSC 04153 MANDY GALVAN OPY 3 LIAM WHEELER FLEXIBLE DIAGNOSTI C CONTINUOU E0601 AMAYA CONDE S 3 HOME HOME POSITIVE MEDICAL MEDICAL AIRWAY EQUIPME EQUIPME PRESSURE DEVICE CUSHN A7032 AMAYA CONDE NASAL 2 HOME HOME MASK MEDICAL MEDICAL INTERFACE EQUIPME EQUIPME REPLACEME NT ONLY EACH ADMN SET A7003 YOUR YOUR SM VOL 2 PHARMACY PHARMACY NONFILTR [employer] PNEUMAT NEBULIZR DISPBL FILTER A7013 YOUR YOUR DISPOSABL 2 PHARMACY PHARMACY [employer] W/AREOSOL COMPRESS/ US GENERATOR RADEX 98619 [facility] 2 Y Y [facility] CYTP EVAL 53963 [facility] 2 Y Y [facility] ASPIRATE INTERP & REPORT US SOFT 06354 ELIZABET ELIZABET TISSUE 2 YARON YARON HEAD & [place] [address] [facility] GUIDANCE 2 YARON YARON NEEDLE PLACEMENT IMG S&I FINE 42467 [facility] NEEDLE 2 YARON YARON ASPIRATIO N WITH IMAGING GUIDANCE FINE 50383 [facility] NEEDLE 2 Y Y ASPIRATIO [facility] N W/O IMAGING GUIDANCE LARYNGOSC 22603 MANDY KEANEO OPY 2 LIAM WHEELER FLEXIBLE DIAGNOSTI C MICROSOMA 97149 [facility] L 2 Y Y ANTIBODIE [facility] S EACH COMPREHEN 00838 [facility] SIVE 2 Y Y METABOLIC [facility] [address] [facility] THYROID 2 Y Y STIMULATI [facility] [place] [address] [facility] FREE 2 Y Y THYROXINE [facility] COLLECTIO 63474 [facility] VENOUS 2 Y Y BLOOD [facility] VENIPUNCT URE CONTINUOU E0601 AMAYA CONDE S 2 HOME HOME POSITIVE MEDICAL MEDICAL AIRWAY [place] [address] [facility] ABDOMEN & 2 Y JUS Y JUS PELVIS W/CONTRAS T MATERIAL AMBULANCE A0429 GHANAIAN GHANAIAN SERVICE 2 AMBULETT AMBULETT BLS & & EMERGENCY AMBULANC AMBULANC TRANSPORT GROUND A0425 GHANAIAN GHANAIAN MILEAGE 2 AM[facility]TT AMBULETT PER & & [place] [address] [facility], [facility], ABDOMEN & 2 PHARMACIST IN CHARGE PHARMACIST IN CHARGE PELVIS GISSEL CHAUHAN W/O CO HOS CO HOS CONTRST 1/> BODY RE BASIC 29941 [facility], [facility], METABOLIC 2 PHARMACIST IN CHARGE PHARMACIST IN CHARGE PANEL GISSEL CHAUHAN [place] [address] [facility], [facility], INFUSION 2 PHARMACIST IN CHARGE PHARMACIST IN CHARGE HYDRATION GISSEL CHAUHAN EACH CO HOS CO HOS ADDITIONA L HOUR URNLS DIP 55289 [facility], [facility], 2 PHARMACIST IN CHARGE PHARMACIST IN CHARGE STICK/TAB GISSEL CHAUHAN LET RGNT CO HOS CO HOS AUTO W/O MICROSCOP Y BLOOD 77363 [facility], [facility], COUNT 2 PHARMACIST IN CHARGE PHARMACIST IN CHARGE COMPLETE GISSEL CHAUHAN AUTO&AUTO CO HOS CO HOS DIFRNTL WBC ADMN SET A7003 YOUR YOUR SM VOL 2 PHARMACY PHARMACY NONFILTR [facility] PNEUMAT NEBULIZR DISPBL FILTER A7013 YOUR YOUR DISPOSABL 2 PHARMACY PHARMACY [facility] W/AREOSOL COMPRESS/ US GENERATOR CUSHN A7032 AMAYA CONDE NASAL 2 HOME HOME MASK MEDICAL MEDICAL INTERFACE EQUIPME EQUIPME REPLACEME NT ONLY EACH FILTER A7038 AMAYA CONDE DISPBL 2 HOME HOME USED MEDICAL MEDICAL W/POS EQUIPME EQUIPME ARWAY PRESSURE DEVICE INJECTION A9576 [facility] 2 CO CO [facility] OL PROHANCE MULTIPACK PER ML MRI BRAIN 57612 [facility] BRAIN 2 CO CO STEM W/O [facility] W/[place] [address] [facility] ANGIOGRAP 2 CO CO [facility] W/CONTRAS T/NONCONT RAST DIAGNOSTI G0204 [facility] C 2 Y [facility] HY INCL CAD WHEN PERF; BILAT COMPUTER- 03329 [facility] AIDED 2 Y Y [facility] DX MAMMOGRAP HY CONTINUOU E0601 AMAYA CONDE S 2 HOME HOME POSITIVE MEDICAL MEDICAL AIRWAY EQUIPME EQUIPME PRESSURE DEVICE COLLECTIO 75660 [facility] N VENOUS [address] [facility] VENIPUNCT HOSPITA HOSPITA URE COMPREHEN 93557 [facility] SIVE [address] [facility] [place] [address] [facility] FREE [address] [facility] [place] [address] [facility] HENLY NAN THYROID 2 N STIMULATI [facility] HORMONE TSH BLOOD 05592 [facility] COUNT [address] [facility] AUTO&AUTO HOSPITA HOSPITA DIFRNTL WBC URNLS DIP 15946 [employer], 2 PHARMACIST IN CHARGE PHARMACIST IN CHARGE STICK/TAB GISSEL CHAUHAN LET CO HOS CO HOS REAGENT AUTO MICROSCOP Y DRUG SCR G0434 [employer], [facility], NOT 2 PHARMACIST IN CHARGE PHARMACIST IN CHARGE CHROMATOG GISSEL CHAUHAN RAPHIC; CO HOS CO HOS ANY NUMBER PT ENC US SOFT 75937 [facility] [employer], [facility], TISSUE 2 PHARMACIST IN CHARGE PHARMACIST IN CHARGE HEAD & GISSEL SHEEHANS NECK REAL CO HOS CO HOS TIME IMGE DOCM DUPLEX 46886 [facility] 2 SABA EXTRACRAN RADIOLOGY IAL ART ASSOCIAT COMPL BI [facility] [address] [facility] DIS[facility] Aug DAY MANAGEMEN T 30 MIN/< SBSQ 10204 [facility] 2 Aug CARE/DAY 25 MINUTES INITIAL 60011 [facility] 2 Aug CARE/DAY 50 MINUTES RADIOLOGI 56382 [facility] EXAM 2 [place] CHEST 2 RADIOLOGY VIEWS ASSOCIAT FRONTAL&L ATERAL RADIOLOGI 26599 [facility] 2 [place] EXAMINATI RADIOLOGY ON SKULL ASSOCIAT 4/> VIEWS RADEX ABD 63969 [facility] 2 [place] ANTEROPOS RADIOLOGY T&ADDL ASSOCIAT OBLQ&[place] [address] [facility] HEAD/BRAI 2 PHARMACIST IN CHARGE PHARMACIST IN CHARGE N W/O GISSEL GISSEL CONTRAST CO HOS CO HOS MATERIAL CUSHN A7032 AMAYA AMAYA NASAL 2 HOME HOME [facility] INTERFACE EQUIPME EQUIPME REPLACEME NT ONLY EACH CONTINUOU E0601 AMAYA AMAYA S 2 HOME HOME POSITIVE MEDICAL MEDICAL AIRWAY EQUIPME EQUIPME PRESSURE DEVICE ADMN SET A7003 YOUR YOUR SM VOL 2 [facility] NE[facility]UL[facility] DISPBL RADEX 24899 [facility], [facility] SMALL 2 PHARMACIST IN CHARGE PHARMACIST IN CHARGE INTESTINE GISSEL GISSEL CO HOS CO HOS W/MULTIPL E SERIAL IMAGES LIPID 82435 [facility], [facility] PANEL 2 PHARMACIST IN CHARGE PHARMACIST IN CHARGE GISSEL GISSEL CO HOS CO HOS INJECTION J2550 [facility], [facility], 2 PHARMACIST IN CHARGE PHARMACIST IN CHARGE PROMETHAZ GISSEL GISSEL INE HCL CO HOS CO HOS UP TO 50 MG GENERAL 89779 [facility], [facility], HEALTH 2 PHARMACIST IN CHARGE PHARMACIST IN CHARGE PANEL GISSEL GISSEL CO HOS CO HOS INJECTION J1885 [facility], [facility], 2 PHARMACIST IN CHARGE PHARMACIST IN CHARGE KETOROLAC GISSEL GISSEL CO HOS CO HOS TROMETHAM INE PER 15 MG IMMUNOFLU 65419 [facility], [facility], ORESCENT 2 PHARMACIST IN CHARGE PHARMACIST IN CHARGE STUDY EA GISSEL GISSEL ANTIBODY CO HOS CO HOS INDIR METHOD THERAPEUT 37351 [facility], [facility], IC 2 PHARMACIST IN CHARGE PHARMACIST IN CHARGE PROPHYLAC GISSEL GISSEL TIC/DX CO HOS CO HOS INJECTION SUBQ/[place] [address] [facility], [employer], LIPASE 2 PHARMACIST IN CHARGE PHARMACIST IN CHARGE GISSEL GISSEL CO HOS CO HOS PROTHROMB 08828 [facility], [facility], IN TIME 2 PHARMACIST IN CHARGE PHARMACIST IN CHARGE GISSEL GISSEL CO HOS CO HOS CONTINUOU E0601 AMAYA CONDE S 2 HOME HOME POSITIVE MEDICAL MEDICAL AIRWAY EQUIPME EQUIPME PRESSURE DEVICE THERAPEUT 21829 [facility] IC 2 Aug PROPHYLAC TIC/DX INJECTION SUBQ/IM INJECTION J1885 [facility] T[facility] 2 Aug KETOROLAC TROMETHAM INE [place] [address] [place] [address] [facility] [place] [facility] MAT ABDOMEN & 2 RADIOLOGY PELVIS W/O CONTRAST MATERIAL ADMN SET A7003 YOUR YOUR SM VOL 2 PHARMACY PHARMACY [facility] [place] [address] [facility], [facility], ABDOMEN & 2 PHARMACIST IN CHARGE PHARMACIST IN CHARGE PELVIS GISSEL GISSEL W/O CO HOS CO HOS CONTRST 1/> BODY RE LOCM Q9967 [facility], [employer], [phone] PHARMACIST IN CHARGE PHARMACIST IN CHARGE MG/ML GISSEL GISSEL IODINE CO HOS CO HOS CONCENTRA TION PER ML COMPREHEN 64036 [facility] [place] [employer], [employer], SIVE 2 PHARMACIST IN CHARGE PHARMACIST IN CHARGE METABOLIC GISSEL GISSEL PANEL CO HOS CO HOS LACTATE 86583 [facility], [facility], DEHYDROGE 2 PHARMACIST IN CHARGE PHARMACIST IN CHARGE NASE LDH GISSEL GISSEL CO HOS CO HOS BLOOD 18196 [facility] [facility], [facility], COUNT 2 PHARMACIST IN CHARGE PHARMACIST IN CHARGE COMPLETE GISSEL GISSEL AUTO&AUTO CO HOS CO HOS DIFRNTL WBC CARCINOEM 96538 [facility], [employer], BRYONIC 2 PHARMACIST IN CHARGE PHARMACIST IN CHARGE ANTIGEN GISSEL CHAUHAN CEA CO HOS CO HOS BILIRUBIN 64657 [employer], [employer], DIRECT 2 PHARMACIST IN CHARGE PHARMACIST IN CHARGE GISSEL CHAUHAN CO HOS CO HOS CUSHN A7032 AMAYA AMAYA NASAL 2 HOME HOME MASK MEDICAL MEDICAL INTERFACE EQUIPME EQUIPME REPLACEME NT ONLY EACH URNLS DIP 33207 CANDIDA TIRADO 2 Aug STICK/TAB LET RGNT NON-AUTO W/O MICRSCP CONTINUOU E0601 AMAYA AMAYA S 2 HOME HOME POSITIVE MEDICAL MEDICAL AIRWAY EQUIPME EQUIPME PRESSURE DEVICE ADMN SET A7003 YOUR YOUR SM VOL 2 PHARMACY PHARMACY NONFILTR LLC LLC PNEUMAT NEBULIZR DISPBL CONTINUOU E0601 AMAYA [...] MEDICAL AIRWAY EQUIPME EQUIPME PRESSURE DEVICE INITIAL 21784 CANDIDA TIRADO OBSERVATI 2 Aug ON CARE/DAY 50 MINUTES ADMN SET A7003 YOUR YOUR SM VOL 2 PHARMACY PHARMACY NONFILTR LLC LLC PNEUMAT NEBULIZR DISPBL OBSERVATI 80048 CANDIDA TIRADO ON CARE 2 Aug DISCHARGE MANAGEMEN T RADIOLOGI 27352 [facility] EXAM 2 SABA CHEST 2 RADIOLOGY VIEWS ASSOCIAT FRONTAL&L ATERAL MRI 49712 [facility] SPINAL 2 CO CO CANAL HOSPITAL [facility] LUMBAR W/O CONTRAST MATERIAL GASTRIC 28706 [facility] [place] CISCO EMPTYING 2 RADIOLOGY RHO IMAGING STUDY POSITIONA 13644 RICHARD GRE RICHARD GRE L 2 NYSTAGMUS TEST SINUSOIDA 23850 RICHARD GRE RICHARD GRE L 2 VERTICAL AXIS ROTATIONA L TESTING NRV CNDJ 29195 RICHARD JIMMY BRONSONK GRE AMPLITUDE 2 & LATENCY EACH NERVE SENSORY CALORIC 03639 RICHARD JIMMY BRONSONK GRE VESTIBULA 2 R TEST EA IRRIGATIO N W/RECORD OPTKINETI 71787 RICHARD JIMMY BRONSONK GRE C NYSTAG 2 BIDIR/FOV EAL/PERIP H STIM W/REC SPONTANEO 41169 RICHARD JIMMY RICHARD GRE US 2 NYSTAGMUS TEST HUMDIFIR E0562 AMAYA CONDE HEATED 2 HOME HOME USED MEDICAL MEDICAL W/POS EQUIPME EQUIPME ARWAY PRESSURE DEVICE HEADGEAR A7035 AMAYA AMAYA USED 2 HOME HOME W/POSITIV MEDICAL MEDICAL E AIRWAY EQUIPME EQUIPME PRESSURE DEVICE CONTINUOU E0601 AMAYA AMAYA S 2 HOME HOME POSITIVE MEDICAL MEDICAL AIRWAY EQUIPME EQUIPME PRESSURE DEVICE FILTER A7038 AMAYA CHICASRELL DISPBL 2 HOME HOME USED MEDICAL MEDICAL W/POS EQUIPME EQUIPME ARWAY PRESSURE DEVICE FULL FACE A7030 AMAYA AMAYA MASK 2 HOME HOME USED MEDICAL MEDICAL W/POS EQUIPME EQUIPME ARWAY PRESS DEVICE EA TUBING A7037 AMAYA AMAYA USED WITH 2 HOME HOME POSITIVE MEDICAL MEDICAL AIRWAY EQUIPME EQUIPME PRESSURE DEVICE ADMN SET A7003 YOUR YOUR SM VOL 2 PHARMACY PHARMACY NONFILTR [employer] PNEUMAT NEBULIZR DISPBL POLYSOM 40312 [employer], [employer], 6/>YRS 2 PHARMACIST IN CHARGE PHARMACIST IN CHARGE SLEEP GISSEL CHAUHAN W/CPAP CO HOS CO HOS 4/> ADDL LAURA ATTND ADMN SET A7003 YOUR YOUR SM VOL 2 PHARMACY PHARMACY NONFILLocalmint LLC [place] [address] ABBIE [facility] INFUSION 2 [facility] THERAPY INC INC PROPHYLAX IS/DX EA HOUR ANESTH 47300 [facility] 2 ANESTH C OF THE [place] [address] ABBIE [facility] INFUSION 2 [facility] THERAPY/P INC INC ROPHYLAXI S /DX 1ST TO 1 HR ARTHROSCO 17520 ABBIE LEIVA PY KNEE 2 [facility] SYNOVECTO INC INC MY LIMITED SPX THERAPEUT 22101 ABBIE LEIVA IC 2 [facility] INJECTION INC INC IV PUSH EACH NEW DRUG BLOOD 52307 ABBIE LEIVA COUNT 2 [facility] COMPLETE INC INC AUTO&AUTO DIFRNTL WBC RADIOLOGI 47455 ABBIE LEIVA C EXAM 2 [facility] CHEST 2 INC INC VIEWS FRONTAL&L ATERAL BASIC 67323 ABBIE LEIVA METABOLIC 2 [facility] PANEL INC INC CALCIUM TOTAL RADEX 64661 This[employer], SPINE 2 PHARMACIST IN CHARGE PHARMACIST IN CHARGE LUMBOSACR GISSEL CHAUHAN AL CO HOS CO HOS MINIMUM 4 VIEWS URNLS DIP 92134 CANDIDA TIRADO 2 Aug STICK/TAB LET RGNT NON-AUTO W/O MICRSCP POLYSOM 82927 This[employer]lic[employer], 6/>YRS 2 PHARMACIST IN CHARGE PHARMACIST IN CHARGE SLEEP 4/> GISSEL CHAUHAN ADDL CO HOS CO HOS LAURA ATTND INJECTION J2550 ThisClicks, 2 PHARMACIST IN CHARGE PHARMACIST IN CHARGE PROMETHAZ GISSEL CHAUHAN INE HCL CO HOS CO HOS UP TO 50 MG THERAPEUT 92798 ThisClicks, IC 2 PHARMACIST IN CHARGE PHARMACIST IN CHARGE PROPHYLAC GISSEL CHAUHAN TIC/DX CO HOS CO HOS INJECTION SUBQ/IM COLONOSCO 16716 EVITA MARTINEZ- PY 2 SHRUTHI SHRUTHI W/BIOPSY NETO NETO SINGLE/MU LTIPLE ANES 86465 [place] ZIEMBROS[facility] LOWER 2 ANESTHESI I JR EDW INTESTINE A GROUP [place] [address] PATHOLOGY DOUGLAS SURG 2 & SABA PATHOLOGY CYTOLOGY LAB GROSS&AIYANA ROSCOPIC EXAM ECG 63033 TURNER ESTEFANY TURNER ESTEFANY ROUTINE 2 ECG W/LEAST 12 LDS I&R ONLY RADIOLOGI 73517 ThisClicks, C 2 PHARMACIST IN CHARGE PHARMACIST IN CHARGE EXAMINATI GISSEL CHAUHAN ON KNEE CO HOS CO HOS 1/2 VIEWS ADMN SET A7003 YOUR YOUR SM VOL 2 PHARMACY PHARMACY NONFILTR [facility] LLC PNEUMAT NEBULIZR DISP HOSPITAL 91340 CANDIDA TIRADO DISCHARGE 2 Aug DAY MANAGEMEN T 30 MIN/< SBSQ 65457 [facility] 2 Aug CARE/DAY 15 MINUTES SBSQ 52352 [facility] 2 Aug CARE/DAY 25 MINUTES GLUC BLD 12087 CANDIDA TIRADO GLUC MNTR 2 Aug DEV CLEARED FDA SPEC HOME USE MAX 42965 CANDIDA TIRADO BREATHING 2 Aug CAPACITY MAXIMAL VOLUNTARY VENTJ RADIOLOGI 48259 [facility] C EXAM 2 EIDER GIOVANNA CHEST 2 RADIOLOGY VIEWS ASSOCIAT FRONTAL&L ATERAL STRAPPING 06770 [facility] DE LEON 1 MIHAI MIHAI ELBOW/WRI ST ADMN SET A7003 YOUR YOUR SM VOL 1 PHARMACY PHARMACY NONFILTR [facility] LLC PNEUMAT NEBULIZR DISPBL RADEX 83164 [facility] WRIST 1 EIDER GIOVANNA COMPLETE RADIOLOGY MINIMUM 3 ASSOCIAT VIEWS ADMN SET A7003 YOUR YOUR SM VOL 1 PHARMACY PHARMACY NONFILTR [facility] LLC PNEUMAT NEBULIZR DISPBL DETERMINA 58677 [facility] 1 GRE GRE REFRACTIV E STATE OPHTH 89442 [facility] 1 GRE GRE XM&EVAL COMPRE NEW PT 1/> VST ADMN SET A7003 YOUR YOUR SM VOL 1 PHARMACY PHARMACY [facility] PNEUMAT NEBULIZR DISPBL US BREAST 14307 [facility] [place] UNIVERS REAL 1 Y Y TIME [facility] W/IMAGE DOCUMENTA TION DIAGNOSTI G0204 [facility] C 1 Y Y MAMMOGRAP [facility] HY INCL CAD WHEN PERF; BILAT COMPUTER- 25501 [facility] AIDED 1 Y Y DETECTION [facility] DX MAMMOGRAP HY ARTHROCEN 64595 ARIANA ALLEN 1 CLINIC MIHAI ASPIR&/IN PSC J MAJOR JT/BURSA W/O US ADMN SET A7003 YOUR YOUR SM VOL 1 PHARMACY PHARMACY NONFILTR [facility] PNEUMAT NEBULIZR DISPBL FILTER A7013 YOUR YOUR DISPOSABL 1 PHARMACY PHARMACY LLC LLC W/AREOSOL COMPRESS/ US GENERATOR KNEE L1830 GISSEL CHAUHAN ORTHOSIS 1 CO [facility] CANV[facility] LONGTUDNL PREFAB RADIOLOGI 71063 GISSEL CHAUHAN C 1 CO CO EXAMINATI [facility] ON KNEE 3 VIEWS INJECTION J1885 GISSEL CHAUHAN [facility] PER 15 MG APPLICATI 26316 GISSEL TIRADO ON SHORT 1 CO [facility] SPLINT CALF FOOT RADIOLOGI 33862 MARY GARDNER C EXAM 1 EIDER GIOVANNA KNEE RADIOLOGY COMPLETE ASSOCIAT 4/[place] [address] LABORATOR LABORATOR IRON 1 Y & Y & BIODIAGNO BIODIAGNO STICS STICS URNLS DIP 54344 SMITH SMITH 1 SOREN SOREN STICK/TAB LET RGNT AUTO W/O MICROSCOP Y CREATININ 70003 SMITH SMITH E OTHER 1 SOREN SOREN SOURCE BLOOD 04068 LABORATOR LABORATOR COUNT 1 Y & Y & COMPLETE BIODIAGNO BIODIAGNO AUTO&AUTO STICS STICS DIFRNTL WBC RENAL 48819 LABORATOR LABORATOR FUNCTION 1 Y & Y & PANEL BIODIAGNO BIODIAGNO STICS STICS IRON 41843 LABORATOR LABORATOR BINDING 1 Y & Y & CAPACITY BIODIAG[place] [address] LABORATOR LABORATOR PARATHORM 1 Y & Y & ONE BIODIAGNO BIODIAGNO STICS STICS 25 96675 LABORATOR LABORATOR HYDROXY 1 Y & Y & INCLUDES BIODIAGNO BIODIAGNO [place]RACTIONS [place] [address] LABORATOR LABORATOR FERRITIN 1 Y & Y & BIODIAGNO BIODIAGNO STICS STICS ADMN SET A7003 YOUR YOUR SM VOL 1 PHARMACY PHARMACY NONFILTR [employer] [facility] PNEUMAT NEBULIZR DISPBL RINGERS J7120 ARLENE DHALIWAL LACTATE 1 CO [facility] UP TO 1000 CC INJECTION J1100 [facility] FRANKSMING 1 [facility] SOD[facility] PHOS[facility] 1 MG INJECTION J2550 [facility] FRANKSMING [facility] 50 MG INJECTION J2405 [facility] FRANKSMING 1 CO CO [facility] ON HCL PER 1 MG INFUSION J7050 [facility]ENE JACOBS NORMAL 1 CO CO SALINE [facility] SOLUTION 250 CC INJECTION J3010 [facility] 1 CO [facility] 0.1 MG UNCLASSIF J3490 [facility] IED DRUGS 1 CO [facility] CYSTOURET 22735 LOPEZ LOPEZ HROSCOPY 1 SWAPNA SWAPNA W/DIL BLADDER GENERAL ANESTH ANES 51777 ARLENE FRANKSMING TRANSURET 1 CO CO [facility] W/URETHRO CYSTOSCOP Y NOS INJECTION J0744 JACOBS JACOBS 1 [facility] ACIN INTRAVENO US INFUS 200 MG INJECTION J2250 [facility] 1 CO [facility] H[facility] PER 1 MG X-RAY 71163 LOPEZ LOPEZ URINARY 1 SWAPNA SWAPNA TRACT EXAM WITH CONTRAST MATERIAL CYSTO 94699 LOPEZ LOPEZ BLADDER 1 SWAPNA SWAPNA W/URETERA L CATHETERI ZATION BLOOD 49570 LAB SHERI LAB SHERI COUNT 1 AMERIC AMERIC COMPLETE HOLDING HOLDING AUTO&AUTO DIFRNTL WBC SPMTRY 82788 [place] W/VC 1 TRACE BAN GET EXPIRATOR FAMILY Y [facility] W/WO MXML VOL VNTJ NONINVASI 59345 [place] III VE 1 TRACE [place] EAR/PULSE FAMILY OXIMETRY HEALTH SINGLE DETER COMPREHEN 13092 LAB SHERI LAB SHERI SIVE 1 AMERIC AMERIC METABOLIC HOLDING HOLDING PANEL NELSON 29273 LOPEZ LOPEZ POST-VOID 1 SWAPNA SWAPNA ING RESIDUAL URINE&/BL ADDER CAP ADMN SET A7003 YOUR YOUR SM VOL 1 PHARMACY PHARMACY NONFILTR [facility] PNEUMAT NEBULIZR DISPBL INJECTION J2405 [facility] 1 CO [facility] ON HCL PER 1 MG SLING 24073 LOPEZ LOPEZ OPERATION 1 SWAPNA SWAPNA STRESS INCONTINE NCE ANES 97596 [facility] EXTRAPERI 1 CO [facility] LWR ABD W/URINARY TRACT NOS UNCLASSIF J3490 CORAM JACOBS IED DRUGS 1 CO CO HOSPITAL HOSPITAL INJECTION J1885 [facility] 1 CO CO KETOROLAC [facility]PITAL TROMETHAM INE PER 15 MG INJECTION J3010 [facility] FENTANYL 1 CO CO CITRATE [facility] 0.1 MG RINGERS J7120 [facility] LACTATE 1 CO CO INFUSION [facility] UP TO 1000 CC INJECTION J0697 [facility] STERILE 1 CO CO CEFUROXIM [facility] E SODIUM PER 750 MG INJECTION J1100 [facility] 1 CO CO DEXAMETHO [facility] SONE SODIUM PHOSPHATE 1 MG INJECTION J2175 [facility] 1 CO CO MEPERIDIN [facility] E HCL PER 100 MG INJECTION J0690 [facility] 1 CO CO CEFAZOLIN [facility] SODIUM 500 MG INJECTION J2250 [facility] 1 [facility] HCL PER 1 MG CYSTOURET 01769 LOPEZ LOPEZ HROSCOPY 1 SWAPNA SWAPNA BASIC 19550 LAB SHERI LAB SHERI METABOLIC 1 AMERIC AMERIC PANEL HOLDING HOLDING CALCIUM TOTAL RADIOLOGI 16279 [facility] C EXAM 1 TRACE TRACE CHEST 2 FAMILY FAMILY VIEWS [facility] FRONTAL&L ATERAL SPMTRY 31048 [place] III W/VC 1 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 FAMILY [facility] W/WO MXML VOL VNTJ NONINVASI 09817 [place] III VE 1 TRACE [facility] EAR/PULSE FAMILY OXIMETRY HEALTH SINGLE DETER BLOOD 07435 LAB SHERI LAB SHERI COUNT 1 AMERIC AMERIC COMPLETE HOLDING HOLDING AUTO&[place] [address] [facility] ABDOMEN & 1 CO CO PELVIS [facility] W/O CONTRST 1/> BODY RE RADEX 50728 [facility] ABDOMEN 1 1 CO CO [facility]OSPITAL [facility]OSPITAL ANTEROPOS TERIOR VIEW CYSTO 05636 LOPEZ LOPEZ CALIBRATI 1 SWAPNA SWAPNA ON DILAT URTL STRIX/NELLY NOSIS COLLECTIO 63487 [facility] N VENOUS 1 [facility] BLOOD [facility] VENIPUNCT URE BASIC 36679 [facility] METABOLIC 1 [facility] CALCIUM TOTAL CULTURE 80509 [facility] BACTERIAL 1 [facility] QUANTTATI VE COLONY COUNT URINE COMPLX 76834 LOPEZ LOPEZ CYSTOMETR 1 SWAPNA SWAPNA O W/VOID PRESS & URETHRAL PROFIL NELSON 93990 [facility] LOPEZ POST-VOID 1 SWAPNA SWAPNA ING RESIDUAL URINE&/BL ADDER CAP VOID 01583 [facility] PRESSURE 1 SWAPNA SWAPNA STUDIES INTRAABDO SREE EMG STDS 40756 LOPE[facility] LOPEZ ANAL/URTL 1 SWAPNA SWAPNA SPHNCTR OTH/THN NDL COMPLEX 93178 LOPEZ LOPEZ UROFLOMET 1 SWAPNA SWAPNA RY ELECTRICA A4595 [facility] EMPI INC L 1 STIMULATO R SUPPLIES 2 LEAD PER MONTH NELSON 22491 LOPEZ LOPEZ POST-VOID 1 SWAPNA SWAPNA ING RESIDUAL URINE&/BL ADDER CAP ADMN SET A7003 YOUR YOUR SM VOL 1 [facility] PNEUMAT NEBULIZR DISPBL URNLS DIP 36626 ARIANA TIRADO 1 CLINIC PARUL STICK/TAB PSC LET RGNT NON-AUTO W/O MICRSCP ARTHROCEN 47813 [facility] [place]ESIS 1 [place] ASPIR&/IN ORTHOPAED ORTHOPAED J MAJOR ICS PLC ICS PLC JT/BURSA W/O US SUSCEPTBI 02382 GISSEL CHAUHAN LTY STDY [address] [facility] [place] IAL AGNT AGAR DILUTJ CULTURE 40141 GISSEL CHAUHAN BACTERIAL 1 [facility] QUANTTATI VE COLONY COUNT URINE CULTURE 71257 GISSEL CHAUHAN BCT 1 [facility] ISOL&[facility] PTV ID ISOLATE EA URINE URNLS DIP 27248 GISSEL CHAUHAN 1 CO CO STICK/TAB HOSPITAL HOSPITAL LET REAGENT AUTO MICROSCOP Y NEUROPLAS 05448 [facility] TRA TY 1 [place] &/TRANSPO ORTHOPAED S MEDIAN [facility] NRV CARPAL TUNNE TENDON 67416 [facility] SHEATH 1 [place] INCISION ORTHOPAED [facility] ANES 28880 [place] KEO ANT NERVE 1 ANESTHESI MUSCLE A GROUP TDN PSC FASCIA&BU RSA FOREARM WRIST ECG 53094 GISSEL CHAUHAN ROUTINE 1 CO CO ECG [facility] W/LEAST 12 LDS TRCG ONLY W/O I&R COLLECTIO 81365 GISSEL Merida VENOUS 1 CO AR BLOOD [facility] VENIPUNCT URE BLOOD 99575 GISSEL CHAUHAN COUNT 1 CO CO COMPLETE [facility] AUTO&AUTO DIFRNTL WBC URNLS DIP 19037 GISSEL CHAUHAN 1 CO CO STICK/TAB [facility] LET REAGENT AUTO MICROSCOP Y RADIOLOGI 83860 GISSEL Smith EXAM 1 CO CO CHEST [address] [place] [address] VIEWS FRONTAL&L ATERAL ECG 84567 RINALDINI RINALDINI ROUTINE 1 MELINDA MELINDA ECG W/LEAST 12 LDS I&R ONLY BASIC 98155 GISSEL CHAUHAN METABOLIC 1 CO CO PANEL [facility] CALCIUM TOTAL WRIST L3807 [employer] HAND 1 FINGR ORTHOS W/O JNT PREFAB CSTM FIT RADEX 20582 [facility] WRIST 1 [place] COMPLETE ORTHOPAED MINIMUM 3 [facility] VIEWS WRIST L3908 [email or web address] HAND 1 ORTHOSIS EXT CONTROL COCK-UP PREFAB NRV CNDJ 58218 [facility] AMPLT&LAT 1 [facility] NRV MOTOR SYLVIA W/F-WAVE STD NRV CNDJ 88324 [facility] AMPLITUDE 1 [facility]UROLOGY [facility] LATENCY SYLVIA EACH NERVE SENSORY H-REFLEX 29056 [facility] AMPLT&LAT 1 NEUROLOGY [facility] GASTRCN/S SYLVIA [facility] ADMN SET A7003 YOUR YOUR SM VOL 1 PHARMACY PHARMACY NONFILTR LLC LLC PNEUMAT NEBULIZR DISPBL 3D 90590 [facility] RENDERING 1 MEDICAL MEDICAL W/INTERP IMAGING IMAGING & ASS ASS POSTPROCE SS SUPERVISI ON MRI 68130 ABBIE LEIVA SPINAL 1 [facility] CANAL INC INC LUMBAR W/O CONTRAST MATERIAL MRI 13421 ABBIE LEIVA SPINAL 1 [facility] CANAL INC INC CERVICAL W/O CONTRAST MATRL BLOOD 39624 GISSEL CHAUHAN COUNT 1 CO CO SMEAR [facility] MCRSCP W/[place] [address] GISSEL CHAUHAN INFUSION 1 CO CO THERAPY/P [facility] ROPHYLAXI S /DX 1ST TO 1 HR URNLS DIP 12774 GISSEL CHAUHAN 1 CO CO STICK/TAB [facility] LET REAGENT AUTO MICROSCOP Y THER 15767 GISSEL CHAUHAN PROPH/DX 1 CO CO NJX IV [facility] PUSH SINGLE/1S T SBST/[place] [address] GISSEL CHAUHAN INFUSION 1 CO CO HYDRATION [facility] INITIAL 31 MIN-1 HOUR COMPREHEN 46451 GISSEL CHAUHAN SIVE 1 CO CO METABOLIC [facility] PANEL COLLECTIO 35769 GISSEL CHAUHAN N VENOUS 1 CO CO BLOOD [facility] VENIPUNCT URE ADMN SET A7003 YOUR YOUR SM VOL 0 PHARMACY PHARMACY NONFILTR LLC LLC PNEUMAT NEBULIZR DISPBL PHYSICAL 88422 JACOBS JACOBS THERAPY 0 CO CO EVALUATIO [facility] N APPLICATI 40853 JACOBS JACOBS ON 0 CO CO SURFACE [facility] NEUROSTIM ULATOR TENS E0730 EMPI INC EMPI INC DEVICE 0 4/MORE LEADS MULTI NERVE STIMULATI ON MOLEC SEP 89484 UNIVERS UNIVERS GEL 0 Y Y ELECTROPH [facility] ORESIS EACH PREPJ MOLEC 31463 UNIVERS UNIVERS ISOL/XTRJ 0 Y Y [facility] NUCLEIC ACID EA TYPE MOLEC 72303 [facility] MUTATION 0 Y Y ID [facility] SEQUENCIN G 1 SGM EA SGM MOLECULAR 49279 [facility] 0 Y Y DIAGNOSTI [facility] CS INTERPRET ATION & REPORT MOLECULAR 69928 [facility] DX 0 Y Y AMPLIFICA [facility] TION TARGET EA SEQUENCE ADMN SET A7003 YOUR YOUR SM VOL 0 [facility] PNEUMAT NEBULIZR DISPBL MAMMOGRAP 53365 [place] ACUNA SABA HIC GID 0 MEDICAL NEEDLE SERV PLACEMENT FOUNDATIO T BREAST MASTECTOM 33480 [place] ALVARADO Y PARTIAL 0 MEDICAL HEA SERV FOUNDATIO ANES 18717 [place] INTEG 0 MEDICAL R GIOVANY EXTREMITI SERV ES ANT FOUNDATIO TRUNK & PERINEUM NOS RADIOLOGI 64706 [place] ANN MOL TRAVIS 0 MEDICAL EXAMINATI SERV [place] [address] [place] ANN MOL SURG 0 MEDICAL PATHOLOGY SERV FOUNDATIO GROSS&AIYANA ROSCOPIC EXAM PREOP 05334 [place] ACUNA SABA PLACEMENT 0 MEDICAL SERV LOCALIZAT FOUNDATIO ION WIRE BREAST BLOOD 85129 [facility] COUNT 0 Y Y COMPLETE [facility] AUTOMATED COLLECTIO 13849 [facility] N VENOUS 0 Y Y BLOOD [facility] VENIPUNCT URE BASIC 58424 [facility] METABOLIC 0 Y Y PANEL [facility] CALCIUM TOTAL ECG 75427 [facility] ROUTINE 0 Y Y ECG [facility] W/LEAST 12 LDS TRCG ONLY W/O I&R BREAST 57084 [facility] BIOPSY 0 Y Y VACUUM [facility] ASSISTED/ ROTATING DEVICE IMG GID 67841 [facility] PLWI MTLC 0 Y Y [facility] CLIP PRQ BRST BX/[place] [address] [facility] SURG 0 Y Y PATHOLOGY [facility] GROSS&AIYANA ROSCOPIC EXAM STRTCTC 23149 [facility] 0 Y Y GID [facility] BREAST BX/NEEDLE PLACEMENT RADIOLOGI 87559 [facility] TRAVIS 0 Y [facility]ICAL SPECIMEN DIAGNOSTI G0204 [facility] C 0 Y Y MAMMOGRAP [facility] HY INCL CAD WHEN PERF; BILAT US BREAST 79546 [facility] REAL 0 Y Y TIME [facility] W/IMAGE DOCUMENTA TION ADMN SET A7003 YOUR YOUR SM VOL 0 PHARMACY PHARMACY NONFILTR [employer] [facility] PNEUMAT NEBULIZR DISPBL UROGRAPHY 89805 MARY ELSA IV W/WO 0 [facility] W/WO RADIOLOGY TOMOGRAPH ASSOCIAT Y US BREAST 73300 HUDSON HUNTER REAL 0 CAL[place]IN TIME RADIOLOGY W/IMAGE ASSOCIAT DOCUMENTA TION ADMN SET A7003 YOUR YOUR SM VOL 0 PHARMACY PHARMACY NONFILTR LLC LLC PNEUMAT NEBULIZR DISPBL ADMN SET A7003 YOUR YOUR SM VOL 0 PHARMACY PHARMACY NONFILTR [facility] PNEUMAT NEBULIZR DISPBL MAMMOGRAP 43048 G[facility]SEL CHAUHAN HY [facility] MAMMOGRAP 23765 [facility]AU[facility] HY [facility] SCREENING 66406 HUDSON ZHANG, 0 MC S MAMMOGRAP RADIOLOGY HY BILATERAL ASSOCIATE S PSC RADEX 19031 NATALIIAAMINTA HUNTER, RIBS UNI 0 KORTNEY C W/POSTERO RADIOLOGY ANT CH MINIMUM 3 ASSOCIATE VIEWS S PSC RADEX 64325 NATALIIAAMINTA HUNTER, FINGR 0 KORTNEY C MINIMUM 2 RADIOLOGY VIEWS ASSOCIATE S PSC ADMN SET A7003 YOUR YOUR SM VOL 0 PHARMACY PHARMACY NONFILTR [facility] PNEUMAT NEBULIZR DISPBL ADMN SET A7003 YOUR YOUR SM VOL 0 PHARMACY PHARMACY NONFILTR [facility] PNEUMAT NEBULIZR DISPBL LIPID 85703 [facility] PANEL 0 [facility] 64408 [facility] FUNCTION 0 [facility] PANEL [facility] BONE 92773 BETY ELY 9 JEAN ALVARADO M.D.P.S.C STUDY 1/> [place] S[place] [address] GISSEL CHAUHAN INFUSION 9 [facility] TO 1 HR DEMO&/LURDES 98614 GISSEL CHAUHAN L OF PT 9 CO CO UTILIZ [facility] AERSL GEN/NEB/I NHLR/IP MANJ 23484 GISSEL CHAUHAN CHEST 9 [facility] FACILITAT E LUNG FUNCTION SUBSQ DEMO&/LURDES 32926 GISSEL CHAUHAN L OF PT 9 CO CO UTILIZ [facility] AERSL GEN/NEB/I NHLR/IP MANJ 11221 GISSEL CHAUHAN CHEST 9 CO CO WALL [facility] [place] [address] GISSEL CHAUHAN INFUSION 9 CO [facility] /DX 1ST TO 1 HR ECG 28721 ZENON YARBROUGH ROUTINE 9 , DEEPAK , DEEPAK ECG W/LEAST 12 LDS I&R ONLY RADIOLOGI 42798 GISSEL CHAUHAN C EXAM 9 CO CO CHEST 2 [facility] VIEWS FRONTAL&[place] [address] GISSEL CHAUHAN INFUSION 9 [facility]AP[facility] S /DX 1ST TO 1 HR PRESSURIZ 62275 GISSEL CHAUHAN ED/NONPRE 9 CO CO SSURIZED [facility] INHALATIO N TREATMENT BLOOD 15723 GISSEL CHAUHAN COUNT 9 CO CO COMPLETE [facility] AUTO&AUTO DIFRNTL WBC BLOOD 49569 GISSEL CHAUHAN COUNT 9 CO CO SMEAR [facility] MCRSCP W/[place] [address] GISESL CHAUHAN INFUSION 9 CO CO THERAPY [facility] PROPHYLAX IS/DX EA HOUR BASIC 66439 GISSEL CHAUHAN METABOLIC 9 CO CO PANEL [facility] CALCIUM TOTAL COLLECTIO 80936 GISSEL [place] VENOUS 9 CO CO BLOOD [facility] 92410 ZENON YARBROUGH DISCHARGE 9 , DEEPAK , DEEPAK DAY MANAGEMEN T 30 MIN/< NONINVASI 23538 GISSEL CHAUHAN VE 9 CO CO EAR/PULSE HOSPITAL HOSPITAL OXIMETRY SINGLE DETER PRESSURIZ 44045 GISSEL CHAUHAN ED/NONPRE 9 CO CO SSURIZED [facility] INHALATIO N TREATMENT BLOOD 08488 GISSEL CHAUHAN COUNT 9 [facility] COMPLETE [facility]OSPITAL HOSPITAL AUTO&AUTO DIFRNTL WBC NONINVASI 60242 GISSEL CHAUHAN VE 9 CO CO EAR/[facility]SE [facility] HOSP[place] [address] GISSEL CHAUHAN AMYLASE 9 [place] [address] GISSEL CHAUHAN LIPASE 9 CO CO H[facility]PITAL HOSPITAL ECG 83987 GISSEL CHAUHAN ROUTINE 9 CO CO ECG [facility] W/LEAST 12 LDS TRCG ONLY W/O I&R DEMO&/LRUDES 01476 GISSEL CHAUHAN L OF PT 9 CO CO UTILIZ [facility] AERSL GEN/NEB/I NHLR/IP HOSPITAL G0378 GISSEL CHAUHAN OBSERVATI 9 CO CO ON HOSPITAL HOSPITAL SERVICE PER HOUR COMPREHEN 21190 GISSEL CHAUHAN SIVE 9 CO CO METABOLIC [facility] PANEL RADEX ABD 10002 [facility] COMPL 9 EIDER, AQT ABD RADIOLOGY LEON W/S/E/D K VIEWS 1 [place] [address] [place] ANES&/STR [address] D JT NRV SURGERY SURGERY LMBR/SAC CENTER CENTER 1 LVL INJECTION 09233 JENNIFER LLAMAS, OF LOWER 9 TRACEY ALVARADO [facility] Naz.D.P.S.C SPINAL . JOINT OR NERVE FLUOR 62487 JENNIFER LLAMAS NEEDLE/CA 9 TRACEY ALVARADO Naz[facility]D.P.S[facility]C SPINE/PAR . ASPINAL DX/THER ADDON URNLS DIP [address] GISSEL CHAUHAN 9 CO [facility] [place] [address] GISSEL CHAUHAN INFUSION 9 CO CO [facility] HOSPITAL INITIAL 31 MIN-1 HOUR IADNA NOS 38611 QUEST QUEST 9 DIAGNOSTI DIAGNOSTI AMPLIFIED CS CS PROBE TQ EACH ORGANISM THER 77274 GISSEL CHAUHAN PROPH/DX 9 CO CO NJX [facility] PUSH SINGLE/1S T SBST/DRUG ADMN SET A7003 YOUR YOUR SM VOL 9 PHARMACY PHARMACY [facility] PNEUMAT NE[place]ULIZR DISPBL [place] ANY 49602 KATJA C TYRONE, JT LOWER 9 TYRONE KATJA EXTREM W/O CONTRAST MATRL RADEX 48500 GISSEL CHAUHAN ANKLE 9 CO CO [facility] MINIMUM 3 VIEWS ADMN SET A7003 YOUR YOUR SM VOL 9 PHARMACY PHARMACY [facility] PNEUMAT NEBULIZR DISPBL LUMB-SACR L0637 BLUEGRASS BLUEGRASS AL ORTHOS 9 BRACING BRACING SAG[employer] INC. INC. CNTRL RIGD A&P PREFAB RADEX 58118 GISSEL CHAUHAN SPINE 9 CO CO LUMBOSACR [facility] AL MINIMUM 4 VIEWS MRI 45771 KATJA C TYRONE, SPINAL 9 TYRONE KATJA CANAL LUMBAR W/O CONTRAST MATERIAL 3D 21034 KATJA C TYRONE, RENDERING 9 TYRONE KATJA W/INTERP & POSTPROCE SS SUPERVISI ON ADMN SET A7003 YOUR YOUR SM VOL 9 PHARMACY PHARMACY [employer] [facility] PNEUMAT NEBULIZR DISPBL VIRUS 26362 [facility] CENTRIFUG 9 [facility] E ENHNCD ID IMFLUOR STAIN EA CT LUMBAR 04207 MARY MERCEDESMAN, SPINE 9 MC S W/O RADIOLOGY CONTRAST MATERIAL ASSOCIATE S PSC 3D 59414 GISSEL CHAUHAN RENDERING 9 CO CO W/INTERP [facility] & POSTPROCE SS SUPERVISI ON ADMN SET A7003 YOUR YOUR SM VOL 9 PHARMACY PHARMACY [employer] [facility] PNEUMAT NEBULIZR DISPBL NON-INVAS 18683 ABBIE LEIVA YVETTE 9 MEM HOSP [facility] HOSP PHYSIOLOG INC INC IC STUDY EXTREMITY 3 LEVLS RADIOLOGI 99798 Sarah WEBBER 9 MC S EXAMINATI RADIOLOGY ON CHEST SINGLE ASSOCIATE VIEW S PSC FRONTAL ADMN SET A7003 YOUR YOUR SM VOL 9 PHARMACY PHARMACY NONFILTR [facility] PNEUMAT NEBULIZR DISPBL LIPID 36746 [facility] PANEL 9 [facility] INC ECG 13995 LICKING MCKEMIE ROUTINE 9 VALLEY JR, ECG INTERNAL ROSITA F W/LEAST MED 12 LDS W/I&R NONINVASI 90484 LICKING BESSON, VE 9 VALLEY WILLIAM A EAR/PULSE INTERNAL OXIMETRY MED SINGLE DETER RADIOLOGI 49385 GISSEL CHAUHAN C EXAM 9 CO AR CHEST [address] [place] [address] HOSPITAL VIEWS FRONTAL&L ATERAL ADMN SET A7003 YOUR YOUR SM VOL 9 PHARMACY PHARMACY NONFILTR [facility] [place] [address] PATHOLOGY PATHOLOGY SURG 8 & & PATHOLOGY CYTOLOGY CYTOLOGY LAB LAB GROSS&AIYANA ROSCOPIC EXAM ADMN SET A7003 YOUR YOUR SM VOL 8 PHARMACY PHARMACY NONFILTeraVicta Technologies [facility] PNEUMAT NEBULIZR DISPBL EXC B9 51663 RINALDINI RINALDINI LESION 8 , DEEPAK , DEEPAK [facility] SK TG T/A/L 0.5 CM/< EXC B9 50860 GISSEL CHAUHAN LESION 8 CO [facility] SK TG T/A/L 2.1-3.0 CM PHYSICAL 03363 GISSEL CHAUHAN THERAPY 8 CO AR EVALUATIO [facility] N THERAPEUT 32931 GISSEL CHAUHAN IC PX 1/> 8 CO AR AREAS [facility] EACH 15 MIN EXERCISES RADEX 84571 GISSEL CHAUHAN SPINE 8 CO AR CERVICAL [facility] 4 OR 5 VIEWS COLSC FLX 21369 BUSHRA CAMARILLO, 8 MEDICAL DENNIS W/REMOVAL SERV LESION FOUNDATIO [place] [address]113 ABBIE LEIVA THER 8 MEM [facility] PROPH/DX INC INC 1ST >1 [place] L[place] [address] PATHOLOGY PATHOLOGY SURG 8 & & PATHOLOGY CYTOLOGY CYTOLOGY LAB LAB GROSS&AIYANA ROSCOPIC EXAM [ENDOSCOP 4836 ABBIE LEIVA IC] 8 [facility] POLYPECTO INC INC MY OF RECTUM ADMN SET A7003 YOUR YOUR SM VOL 8 PHARMACY PHARMACY NONFILTR LLC LLC PNEUMAT NEBULIZR DISPBL THER 66500 GISSEL CHAUHAN PROPH/DX 8 CO AR NJX [facility] SUBQ/IM BLOOD 81503 GISSEL CHAUHAN COUNT 8 CO CO COMPLETE [facility] AUTO&AUTO DIFRNTL WBC URNLS DIP 64010 GISSEL CHAUHAN [address] [place] [address] STICK/TAB [facility] LET REAGENT AUTO MICROSCOP Y BASIC 37257 GISSEL CHAUHAN METABOLIC [address] [place] [address] CALCIUM TOTAL COLLECTIO 43256 GISSEL CHAUHAN N VENOUS [address] [place] [address] VENIPUNCT URE ANTIBODY 06238 GISSEL CHAUHAN HELICOBAC 8 [facility] [employer] PYLORI BASIC 75464 [facility] METABOLIC 8 [facility] PANEL CALCIUM TOTAL HEMOGLOBI 83153 [facility] N 8 [facility] GLYCOSYLA KAMLA A1C LIPID 15839 [facility] PANEL 8 [facility] HEPATIC 54069 [facility] FUNCTION 8 [facility] PANEL COLLECTIO 84737 RINALDINI MIAHALDINI N VENOUS 8 , DEEPAK , [place] [address] [facility] THYROID 8 [facility] STIMULATI NG HORMONE TSH ADMN SET A7003 YOUR YOUR SM VOL 8 PHARMACY PHARMACY NONFILTR [facility] PNEUMAT NEBULIZR DISPBL SPCL STN 52191 PATHOLOGY PATHOLOGY 2 I&R 8 & & EXCPT CYTOLOGY CYTOLOGY MICROORG/ LAB LAB ENZYME/IM CYT EGD 28858 ABBIE LIEVA TRANSORAL 8 [facility]OS[facility] BIOPSY INC INC SINGLE/[place] [address] ABBIE LEIVA THER 8 [facility] PROPH/DX [place] 1ST >1 [place] [address] PATHOLOGY PATHOLOGY SURG 8 & & PATHOLOGY CYTOLOGY CYTOLOGY LAB LAB GROSS&AIYANA ROSCOPIC EXAM ESOPHAGOG 4516 ABBIE LEIVA ASTRODUOD 8 [facility] ENOSCOPY INC INC WITH CLOSED BIOPSY GENERAL 24823 [facility] HEALTH 8 [facility] [place] [address] [facility] THYROID 8 [facility] STIMULATI NG HORMONE TSH NATRIURET 49524 QUEST SABRINA QUEST SABRINA IC 8 [facility] BLOOD 98073 [facility] COUNT 8 [facility] COMPLETE AUTO&AUTO DIFRNTL WBC LIPID 51376 [facility] PANEL 8 [facility] Encounters Encounter Start End Date Code Location Performer Type Date [facility] ABBIE - 7 7 [facility] OUTPATIEN [facility] T [facility]ICE 66007 [facility] T VISIT S GROUP 25 MINUTES [facility] ABBIE - 7 7 [facility] OUT[facility] ABBIE [facility] 7 7 [facility] OUTPATIEN [facility] T OFFICE 26011 ABBIE ORTEGA 7 7 [facility] T VISIT INC 10 MINUTES HOSPITAL ABBIE - 7 7 [facility] OUTPATIEN [facility] T EMERGENCY 99031 [facility] 7 7 [facility] EMERGENCY T VISIT PHYS MODERATE SEVERITY HOSPITAL ABBIE - 7 7 [facility] OUTPATIEN INC T OFFICE 81796 [facility] 6 6 [facility] T VISIT 15 MINUTES HOSPITAL ABBIE - 6 6 [facility] OUTPATIEN INC T OFFICE 26888 ABBIE ORTEGA 6 6 [facility] T VISIT INC 10 MINUTES HOSPITAL ABBIE - 6 6 [facility] OUTPATIEN INC [facility]OSPITAL ABBIE [facility] 6 6 [facility] OUTPATIEN [facility] ABBIE [facility] 6 6 [facility] OUTPATIEN INC T OFFICE 50926 DEMETRA CORTEZ [facility] 6 6 [facility] T VISIT 15 MINUTES OFFICE 12122 ABBIE OUTPATIEN 6 6 MEM [facility] T VISIT INC 10 MINUTES HOSPITAL ABBIE - 6 6 [facility] OUTPATI[facility] T OFFICE 99337 [facility] 6 6 [facility] T VISIT INC 10 MINUTES HOSPITAL JACOBS [facility] 6 6 [facility] [place] [address] [place] [address] T OFFICE 80733 [facility] 6 6 [facility] T VISIT MEDICAL 15 G MINUTES OFFICE 13671 [facility] CONSULTAT 6 6 ANALY ION [facility] NEW/ESTAB PLLC PATIENT 60 MIN OFFICE 39093 [facility] CHAIDEZ [facility] 6 6 PHYSICIAN NHAN T NEW 20 S GROUP MINUTES OFFICE 10180 [facility] 6 6 NE [facility] CAR T NEW 30 MEDICAL MINUTES G EMERGENCY 51356 [facility] [address] [facility] EMERGENCY T VISIT PHYS HIGH/URGE NT SEVERITY HOSPITAL ABBIE - 6 6 [facility] OUTPATIEN [facility] T OFFICE 69924 [facility] 6 6 [facility]OS[facility] T VISIT INC 10 MINUTES OFFICE 25624 [facility] EVERETTE [facility]OLM [facility] 6 6 PHYSICIAN T VISIT S GROUP 10 MINUTES OFFICE 67756 MINERVA MELO [facility] 6 6 W R IV STELLA T VISIT PHYSICIAN 25 PRACTIC MINUTES [facility] 6 [facility] T OFFICE 49480 MINERVA MELO OUTPATIEN 6 6 W R IV STELLA T VISIT PHYSICIAN 25 PRACTIC MINUTES HOSPITAL ABBIE - 6 6 [facility] OUTPATIEN INC T OFFICE 01669 ABBIE OUTPATIEN 6 6 MEM HOS[facility] T VISIT INC 10 MINUTES OFFICE 07938 MINERVA ORELLANAE OUTPATIEN 6 6 W R IV STELLA T NEW 60 PHYSICIAN MINUTES PRACTIC OFFICE 57720 [facility] OUTPATIEN 6 6 PHYSICIAN STONE T VISIT S GROUP GEOVANNY HOLM 15 MINUTES EMERGENCY 32276 [facility] 6 6 EMILY PHI DEPARTMEN EMERGENCY T VISIT PHYS HIGH/URGE NT SEVERITY [facility]OSPITAL ABBIE - 6 6 [facility] OUTPATIEN [facility] ABBIE - 6 6 [facility] OUTPATIEN [facility] T OFFICE 93911 ABBIE OUTPATIEN 6 6 MEM [facility] T VISIT INC 10 MINUTES HOSPITAL ABBIE - 6 6 [facility] OUTPATIEN [facility] ABBIE - 6 6 [facility] OUTPATIEN [facility] EMERGENCY 47627 [facility] EMILY VISIT EMERGENCY HIGH PHYS SEVERITY& THREAT FUNC OFFICE 07044 ABBIE OUTPATIEN 6 6 [facility] T VISIT INC 10 MINUTES HOSPITAL ABBIE - 6 6 [facility] OUTPATIEN INC T OFFICE 37717 [facility] MOI OUTPATIEN 6 6 PHYSICIAN AIYANA T VISIT S GROUP 10 MINUTES OFFICE 58714 [facility] MOI OUTPATIEN 6 6 PHYSICIAN AIYANA T VISIT S GROUP 15 MINUTES HOSPITAL ABBIE - 5 5 [facility] OUTPATIEN INC T OFFICE 46380 ABBIE OUTPATIEN 5 5 [facility] T VISIT INC 10 MINUTES HOSPITAL ABBIE - 5 5 [facility] OUTPATIEN INC T OFFICE 45546 [facility] PETTEY OUTPATIEN 5 5 PHYSICIAN JAM T NEW 30 S GROUP MINUTES HOSPITAL ABBIE - 5 5 [facility] OUTPATIEN INC T OFFICE 77353 [facility] MOI OUTPATIEN 5 5 PHYSICIAN AIYANA T VISIT S GROUP 25 MINUTES HOSPITAL ABBIE - 5 5 [facility] OUTPATIEN INC T OFFICE 55187 ABBIE OUTPATIEN 5 5 [facility] T VISIT INC 10 MINUTES HOSPITAL ABBIE - 5 5 [facility] OUTPATIEN INC T OFFICE 19652 [facility] MOI OUTPATIEN 5 5 PHYSICIAN AIYANA T VISIT S GROUP 25 MINUTES OFFICE 58076 [facility] MOI OUTPATIEN 5 5 PHYSICIAN AIYANA T VISIT S GROUP 15 MINUTES EMERGENCY 73934 [facility] MOTALIB DEPT 5 5 EMILY MOH VISIT EMERGENCY HIGH PHYS SEVERITY& THREAT FUN EMERGENCY 80079 [place] 5 5 [facility] T VISIT HIGH/URGE NT SEVERITY HOSPITAL CORAM - 5 5 [facility] T OFFICE 62368 [facility] 5 5 MD [place], T VISIT PSC 10 MINUTES HOSPITAL JACOBS - 5 5 [facility] HOSPITAL CORAM - 5 5 [facility] T OFFICE 96018 [facility] OUTPATIEN 5 5 PHYSICIAN AIYANA T VISIT S GROUP 15 MINUTES HOSPITAL JACOBS - 5 5 [facility] T EMERGENCY 40052 [facility] 5 5 EMILY DEPARTMEN EMERGENCY T VISIT PHYS HIGH/URGE NT SEVERITY EMERGENCY 79820 JACOBS [address] [facility] HOSPITAL T VISIT MODERATE SEVERITY OFFICE 84327 JACOBS DEMOYA OUTPATIEN 5 5 CO HOSP LIAM T VISIT 15 MINUTES OFFICE 42994 DEMETRA CALHOUNX BUX ANJ OUTPATIEN 5 5 MD T NEW 30 MINUTES HOSPITAL ABBIE - 5 5 [facility] OUTPATIEN INC T OFFICE 31944 ABBIE OUTPATIEN 5 5 [facility] T VISIT INC 10 MINUTES OFFICE 10243 [facility] MOI OUTPATIEN 5 5 PHYSICIAN AIYANA T VISIT S GROUP 15 MINUTES OFFICE 58381 [facility] MOI OUTPATIEN 5 5 PHYSICIAN AIYANA T VISIT S GROUP 25 MINUTES HOSPITAL JACOBS - 5 5 [facility] T EMERGENCY 17182 [facility] 5 [address] [facility] EMERGENCY T VISIT PHYS HIGH/URGE NT SEVERITY OFFICE 51218 [facility] MOI OUTPATIEN 5 5 PHYSICIAN AIYANA T VISIT S GROUP 15 MINUTES OFFICE 28395 [facility] MOI OUTPATIEN 5 5 PHYSICIAN AIYANA T VISIT S GROUP 25 MINUTES OFFICE 89766 [facility] MOI OUTPATIEN 5 5 PHYSICIAN AIYANA T NEW 30 S GROUP MINUTES EMERGENCY [address] JACOBS [address] [facility] HOSPITAL T VISIT HIGH/URGE NT SEVERITY HOSPITAL AJCOBS - 5 5 [facility] T EMERGENCY 52330 [facility] 5 EMILY JAM VISIT EMERGENCY HIGH PHYS SEVERITY& THREAT FUNCJ OFFICE 61682 BELEN JARAMILLO OUTPATIEN 5 5 [place] [facility] T VISIT [facility] 15 MINUTES HOSPITAL JACOBS - 5 5 [facility] T OFFICE 89926 EDNAGIOKLEVER KOO OUTPATIEN 5 5 Y [facility] T VISIT CLINIC 15 MINUTES OFFICE 79504 [place] ANGEL CONSULTAT 5 5 MEDICAL III THO ION SERV NEW/ESTAB FOUNDATIO PATIENT N 60 MIN OFFICE 36292 BELEN JARAMILLO OUTPATIEN 5 5 [facility] ANA T VISIT PSC 25 MINUTES OFFICE 95193 ALMAZ HAYES OUTPATIEN 4 4 Y [facility] T VISIT CLINIC 15 MINUTES HOSPITAL ARLENE - 4 4 [facility] T OFFICE 96573 BELEN Quiros [facility] OUTPATIEN 4 4 [facility] T VISIT PSC 15 MINUTES OFFICE 57489 GIOVANNY HAM GIOVANNY HAM OUTPATIEN 4 4 T VISIT 15 MINUTES OFFICE 99510 ARIANA DIAZ- OUTPATIEN 4 4 [facility] [place] T VISIT 15 MINUTES OFFICE 04093 GIOVANNY HAM GIOVANNY HAM OUTPATIEN 4 4 T VISIT 15 MINUTES OFFICE 42581 GIOVANNY HAM GIOVANNY HAM OUTPATIEN 4 4 T VISIT 15 MINUTES HOSPITAL JACOBS - 4 4 CO [facility] JACOBS - 4 4 [facility] T OFFICE 17849 ARIANA DIAZ- OUTPATIEN 4 4 [facility] [place] T VISIT 15 MINUTES OFFICE 67954 [place] COLES OUTPATIEN 4 4 CO HOSP LAR T VISIT 15 MINUTES HOSPITAL JACOBS - OTHER 4 4 CO HOSPITAL OFFICE 63660 ARIANA DIAZ- OUTPATIEN 4 4 [facility] [place] T VISIT 15 MINUTES OFFICE 42690 ARIANA DIAZ- OUTPATIEN 4 4 [facility] [place] T VISIT 15 MINUTES OFFICE 29081 GIOVANNY HAM GIOVANNY HAM OUTPATIEN 4 4 T VISIT 15 MINUTES OFFICE 57575 [place] FELIPENS OUTPATIEN 4 4 CO HOSP LAR T VISIT 15 MINUTES OFFICE 27246 ARIANA DIAZ- OUTPATIEN 4 4 [facility] [place] T VISIT 15 MINUTES HOSPITAL ABBIE - 4 4 [facility] OUTPATIEN [facility] T OFFICE 89116 ARIANAARLEN DE LEON OUTPATIEN 4 4 CLINIC MIHAI T VISIT 15 MINUTES OFFICE 25011 GIOVANNY DEBRA GIOVANNY HAM OUTPATIEN 4 4 T VISIT 15 MINUTES OFFICE 77975 ARIANA DIAZ- OUTPATIEN 4 4 [facility] [place] T VISIT 15 MINUTES HOSPITAL GEORGEW - [address] [facility] [place] - 4 4 [facility]HA[facility] - 4 4 [facility] 89094 GIOVANNY DEBRA GIOVANNY HAM OUTPATIEN 4 4 T VISIT 15 MINUTES OFFICE 39591 ARIANA OUTPATIEN 4 4 CLINIC T VISIT 25 MINUTES OFFICE 90925 GIOVANNY HAM GIOVANNY HAM OUTPATIEN 4 4 T VISIT 15 MINUTES OFFICE 43511 CHAIDEZ CHAIDEZ OUTPATIEN 4 4 NHAN NHAN T VISIT 15 MINUTES OFFICE 96508 ARIANA DIAZ- OUTPATIEN 4 4 [facility] [place] T VISIT 25 MINUTES OFFICE 88651 SANKET FELIPENS OUTPATIEN 4 4 LAR LAR T VISIT 5 MINUTES HOSPITAL ARLENE - 4 4 [facility] JACOBS - 4 4 [facility] JACOBS - 4 4 CO [facility] T EMERGENCY 89736 JACOBS 4 4 CO [facility] T VISIT HIGH/URGE NT SEVERITY EMERGENCY 17647 SADEK MOH SADE[facility] DE[facility] 4 4 VISIT HIGH SEVERITY& THREAT [facility] JACOBS - 4 4 CO [facility] T OFFICE 96474 SANKET GUAJARDOARNS OUTPATIEN 4 4 LAR LAR T NEW 30 MINUTES OFFICE 71043 ARIANA OUTPATIEN 4 4 CLINIC T VISIT 15 MINUTES HOSPITAL [facility], - 4 4 PHARMACIST IN CHARGE OUTPATI GISSEL T [facility] OFFICE 80430 GIOVANNY DEBRA BALTAZAR HAM OUTPATIEN 4 4 T VISIT 15 MINUTES OFFICE 54979 CHAIDEZ CHAIDEZ OUTPATIEN 4 4 NHAN NHAN T NEW 30 MINUTES EMERGENCY 27738 VALENTINO AVELAR DEPT 4 4 Oct VISIT HIGH SEVERITY& THREAT [facility] JACOBS - 4 4 CO [facility] T EMERGENCY 44574 JACOBS [address] [facility] HOSPITAL T VISIT HIGH/URGE NT SEVERITY OFFICE 87584 GIOVANNY DEBRA BALTAZAR HAM OUTPATIEN 4 4 T VISIT 15 MINUTES OFFICE 59711 ARIANA KENYA OUTPATIEN 4 4 CLINIC HEN T VISIT 15 MINUTES HOSPITAL GEORGETOW - 4 4 N OUTPATIEN COMMUNTIY T HOSPITA OFFICE 12710 GIOVANNY DEBRA BALTAZAR HAM OUTPATIEN 4 4 T VISIT 15 MINUTES HOSPITAL UNIVERSIT - 4 4 [facility] T OFFICE 87625 MANDY GALVAN OUTPATIEN 4 4 LIAM LIAM T VISIT 15 MINUTES OFFICE 48872 GIOVANNY RICHARDSON OUTPATIEN 4 4 T VISIT 15 MINUTES HOSPITAL UNIVERSIT - 3 3 Y [facility] T OFFICE 07855 UNIVERSIT OUTPATIEN 3 3 Y T VISIT HOSPITAL 10 MINUTES OFFICE 52022 MANDY GALVAN OUTPATIEN 3 3 LIAM LIAM T VISIT 15 MINUTES OFFICE 38707 GIOVANNY RICHARDSON OUTPATIEN 3 3 T VISIT 15 MINUTES OFFICE 02848 ARIANA CARLOS OUTPATIEN 3 3 [facility] [place] T VISIT 25 MINUTES EMERGENCY 82906 KILEY CAO DEPT 3 3 STELLA STELLA VISIT HIGH SEVERITY& THREAT FUNCJ OFFICE 72903 GIOVANNY RICHARDSON OUTPATIEN 3 3 T VISIT 15 MINUTES EMERGENCY 98625 [place] 3 3 [facility] T VISIT HIGH/URGE NT SEVERITY HOSPITAL [place] - 3 3 [facility] T EMERGENCY 95541 JESSE AVELAR DEPT 3 3 EMERGENCY MAR VISIT SERVICES HIGH SEVERITY& THREAT FUNCJ EMERGENCY 10465 [place] 3 3 [facility] T VISIT HIGH/URGE NT SEVERITY EMERGENCY 86443 KILYE CAO DEPT 3 3 STELLA STELLA VISIT HIGH SEVERITY& THREAT FUN HOSPITAL [place] - 3 3 [facility] T EMERGENCY 46993 SOKAN BAB SOKAN BAB [address] [facility] T VISIT HIGH/URGE NT SEVERITY OFFICE 61292 GIOVANNY RICHARDSON OUTPATIEN 3 3 T VISIT 15 MINUTES HOSPITAL ABBIE - 3 3 [facility] OUTPATIEN INC T OFFICE 77172 BUSHRA CAMARILLO MOIRA OUTPATIEN 3 3 MEDICAL T VISIT SERV 25 FOUNDATIO MINUTES N OFFICE 53631 GIOVANNY BALTAZAR HAM OUTPATIEN 3 3 T VISIT 15 MINUTES HOSPITAL [facility], - 3 3 PHARMACIST IN CHARGE OUTPATIEN GISSEL T CO HOS OFFICE 07295 GIOVANNY RICHARDSON OUTPATIEN 3 3 T NEW 45 MINUTES HOSPITAL [facility], - 3 3 PHARMACIST IN CHARGE OUTPATIEN GISSEL T CO HOS OFFICE 57108 ARIANAARLEN ZAMBRANO OUTPATIEN 3 3 CLINIC HEN T VISIT 15 MINUTES HOSPITAL CENTRAL - 3 3 CONFUCIANISM OUTPATIEN HOSP T OFFICE 78664 MAHNAZ JR JOYA JR OUTPATIEN 3 3 SOREN SOREN T NEW 45 MINUTES OFFICE 02216 HARPEL HARPEL OUTPATIEN 3 3 KELLY KELLY T VISIT 15 MINUTES OFFICE 22831 ARIANA ZAMBRANO OUTPATIEN 3 3 CLINIC HEN T VISIT 15 MINUTES HOSPITAL ABBIE - 3 3 MEM H[facility] OUTPATIEN INC T INITIAL 37796 HARPEL HARPEL PREVENTIV 3 3 KELLY KELLY E MEDICINE NEW PATIENT 40-64YRS OFFICE 96669 CAMARILLO MOIRA CAMARILLO MOIRA OUTPATIEN 3 3 T VISIT 25 MINUTES OFFICE 28934 ARIANA DIAZ- OUTPATIEN 3 3 [facility] T VISIT 15 MINUTES EMERGENCY 19237 JESSE KIMBALL DEPT 3 3 EMERGENCY ROLON VISIT SERVICES HIGH SEVERITY& THREAT FUNJ OFFICE 40970 ARIANA DIAZ- OUTPATIEN 3 3 [facility] [place] T VISIT 15 MINUTES OFFICE 99229 CANDIDA TIRADO OUTPATIEN 3 3 Aug T VISIT 15 MINUTES OFFICE 45792 ERIBERTOFuad ERIBERTOFuad OUTPATIEN 3 3 Aug T VISIT 25 MINUTES HOSPITAL [facility] - 3 3 [facility] T OFFICE 23896 CANDIDA WEIFuad OUTPATIEN 3 3 Aug T VISIT 25 MINUTES OFFICE 88438 CAMARILLO MOIRA CAM[facility]ILLO [facility] T VISIT 15 MINUTES HOSPITAL ABBIE - 3 3 [facility] UNIVERS[facility] - 3 3 Y [facility] T OFFICE 05707 MANDY GALVAN [facility] 3 3 LIAM LIAM T VISIT 10 MINUTES OFFICE 74672 [facility] 3 3 Y T VISIT HOSPITAL 25 MINUTES OFFICE 51315 [facility] T VISIT 25 MINUTES HOSPITAL ABBIE [facility] 3 3 [facility] T OFFICE 83664 CANDIDA WEIFuad OUTPATIEN 3 3 Aug T VISIT 25 MINUTES HOSPITAL UNIVERSIT - 3 3 Y [facility] T OFFICE 41770 ERIBERTOFuad ERIBERTOFuad OUTPATIEN 3 3 Aug T VISIT 25 MINUTES HOSPITAL [facility] - 3 3 PHARMACIST IN CHARGE [facility] HOS OFFICE 72537 NOEMI FRANKLIN JR CONSULTAT 3 3 ION NEW/ESTAB PATIENT 60 MIN OFFICE 46348 SAVANNAHANDRIYFuad TIRADO OUTPATIEN 3 3 Aug T VISIT 25 MINUTES OFFICE 70118 SAVANNAHANDRIYFuad TIRADO OUTPATIEN 3 3 Aug T VISIT 15 MINUTES OFFICE 96769 CANDIDA TIRADO OUTPATIEN 3 3 Aug T VISIT 25 MINUTES HOSPITAL ABBIE - 3 3 [facility] 74919 R[facility]IA [facility] 3 3 T VISIT 40 MINUTES OFFICE 04099 M[facility]Y KE[facility] 3 3 LIAM LIAM T VISIT 25 MINUTES HOSPITAL UNIVERSIT - 3 3 [facility] - 2 2 Y [facility] T OFFICE 91391 [facility] 2 2 Y T NEW 60 HOSPITAL MINUTES OFFICE 65595 MANDYStef [facility] 2 2 LIAM LIAM T NEW 45 MINUTES HOSPITAL UNIVERSIT - 2 2 Y [facility] T EMERGENCY 24292 ZEHRA SHAHID DEPT 2 2 MAT MAT VISIT HIGH SEVERITY& THREAT FUN EMERGENCY 72153 [facility], 2 2 PHARMACIST IN CHARGE DEPARTMEN GISSEL T VISIT CO HOS LIMITED/M INOR PROB EMERGENCY 59658 KIERSTEN KIERSTEN 2 2 HEN HEN DEPARTMEN T VISIT HIGH/URGE NT SEVERITY HOSPITAL [facility], - 2 2 PHARMACIST IN CHARGE [facility] T CO [facility] JACOBS - 2 2 CO [facility] OFF[facility] 26644 [facility] 2 2 Y T VISIT HOSPITAL 15 MINUTES HOSPITAL UN[facility]ERSIT - 2 2 Y [facility] - [address] H[facility] OFF[facility] 59477 SHIRLEY WHEELER CONSULTAT 2 2 ION NEW/ESTAB PATIENT 80 MIN OFFICE 16205 CANDIDA WEIFuad OUTPATIEN 2 2 Aug T VISIT 25 MINUTES EMERGENCY 59281 KIERSTEN BURCH 2 2 HEN HEN MEN T VISIT MODERATE SEVERITY HOSPITAL [facility], - 2 2 PHARMACIST IN CHARGE OUTPATIEN [facility]SEL [facility]OS [facility], - 2 2 PHARMACIST IN CHARGE OUTPATIEN GISSEL T CO HOS OFFICE 10518 CANDIDA WEIFuad OUTPATIEN 2 2 Aug T VISIT 25 MINUTES HOSPITAL [facility], - 2 2 PHARMACIST IN CHARGE OUTPATIEN GISSEL T CO HOS OFFICE 43467 CAMARILLO MOIRA [facility] OUTPATIEN 2 2 T VISIT 15 MINUTES HOSPITAL [facility], - 2 2 PHARMACIST IN CHARGE OUTPATIEN GISSEL T CO HOS EMERGENCY 72786 CANDIDA WEIFuad 2 2 Aug DEPARTMEN T VISIT MODERATE SEVERITY HOSPITAL [facility], - 2 2 PHARMACIST IN CHARGE OUTPATIEN GISSEL T CO HOS OFFICE 40681 CAMARILLO MOIRA [facility] CONSULTAT 2 2 ION NEW/ESTAB PATIENT 60 MIN OFFICE 52098 ALLRAN JR ALLRAN JR CONSULTAT 2 2 STELLA STELLA ION NEW/ESTAB PATIENT 60 MIN OFFICE 82310 CANDIDA WEIFuad OUTPATIEN 2 2 Aug T VISIT 25 MINUTES EMERGENCY 95222 NEERAJ DIAMOND DEPT 2 2 VISIT HIGH SEVERITY& THREAT FUNCJ OFFICE 91055 CANDIDA WEIFuad OUTPATIEN 2 2 Aug T VISIT 25 MINUTES HOSPITAL [facility] - 2 2 PHARMACIST IN CHARGE OUTPATIEN [facility], - 2 2 PHARMACIST IN CHARGE OUTPATIEN GISSEL T CO HOS OFFICE 04916 CANDIDA WEIN OUTPATIEN 2 2 Aug T VISIT 25 MINUTES OFFICE 95694 ERIBERTON ERIBERTON OUTPATIEN 2 2 Aug T VISIT 25 MINUTES OFFICE 03911 BUD PHI BUD PHI CONSULTAT 2 2 ION NEW/ESTAB PATIENT 40 MIN OFFICE 38667 CANDIDA WEIN OUTPATIEN 2 2 Aug T VISIT 15 MINUTES OFFICE 60326 CANDIDA WEIN OUTPATIEN 2 2 Aug T VISIT 15 MINUTES HOSPITAL JACOBS - 2 2 [facility] - 2 2 [facility] T OFFICE 56996 HALEY DE LEON OUTPATIEN 2 2 MIHAI MIHAI T VISIT 25 MINUTES OFFICE 69014 MARTINEZ- MARTINEZ- OUTPATIEN 2 2 SHRUTHI SHRUTHI T VISIT NETO NETO 15 MINUTES OFFICE 53847 ERIBERTON ERIBERTON OUTPATIEN 2 2 Aug T VISIT 15 MINUTES OFFICE 57449 RICHARD GRE RICHARD GRE OUTPATIEN 2 2 T NEW 45 MINUTES HOSPITAL [facility] - 2 2 PHARMACIST IN CHARGE [facility] OFFICE 88964 [facility] OUTPATIEN 2 2 Aug T VISIT 15 MINUTES [facility] - 2 2 [facility] T OFFICE 89174 PETTEY PETTEY OUTPATIEN 2 2 JAM JAM T VISIT 15 MINUTES HOSPITAL [facility] - 2 2 [facility] T OFFICE 94001 MARTINEZ- MARTINEZ- OUTPATIEN 2 2 SHRUTHI SHRUTHI T VISIT NETO NETO 15 MINUTES OFFICE 74147 [facility] OUTPATI[facility] 2 2 Aug T VISIT 15 MINUTES HOSPITAL [facility] INC, - 2 2 PHARMACIST IN CHARGE OUTPATIEN G[facility]SEL T [facility] OFFICE 51317 TAMAREN SAVANNAHAREN OUTPATIEN 2 2 Aug T VISIT 25 MINUTES OFFICE 84932 PETTEY PETTEY OUTPATIEN 2 2 GIGI YU T VISIT 15 MINUTES HOSPITAL [facility], - 2 2 PHARMACIST IN CHARGE OUTPATIEN GISSEL T [facility] OFFICE 61640 PETTEY PETTEY OUTPATIEN 2 2 GIGI YU T NEW 20 MINUTES EMERGENCY 70263 KIERSTEN KIERSTEN 2 2 HEN HEN DEPARTMEN T VISIT MODERATE SEVERITY EMERGENCY 16008 [facility] INC, 2 2 PHARMACIST IN CHARGE DEPARTMEN GISSEL T VISIT CO HOS HIGH/URGE NT SEVERITY HOSPITAL [facility], - 2 2 PHARMACIST IN CHARGE OUTPATIEN GISSEL T [facility] OFFICE 35382 [facility] OUTPATIEN 2 2 Aug T VISIT 25 MINUTES OFFICE 12133 [facility] SAVANNAHAREN OUTPATIEN 2 2 Aug T VISIT 15 MINUTES HOSPITAL [facility], - 2 2 PHARMACIST IN CHARGE OUTPATIEN GISSEL T CO HOS OFFICE 03831 [facility] SAVANNAHAREN OUTPATIEN 2 2 Aug T VISIT 15 MINUTES OFFICE 64750 TAMAREN TAMAREN OUTPATIEN 2 2 Aug T VISIT 25 MINUTES HOSPITAL GISSEL - 2 2 [facility] T OFFICE 61400 JUAN- MARTINEZ- OUTPATIEN 2 2 SHRUTHI SHRUTHI T NEW 30 NETO NETO MINUTES HOSPITAL GISSEL - 1 1 [facility] T OFFICE 95404 HALEY DE LEON OUTPATIEN 1 1 MIHAI MIHAI T VISIT 15 MINUTES HOSPITAL UNIVERSIT - 1 1 Y [facility] T OFFICE 53546 UNIVERSIT OUTPATIEN 1 1 Y T VISIT HOSPITAL 15 MINUTES OFFICE 68342 ARIANA DE LEON OUTPATIEN 1 1 CLINIC MIHAI T VISIT PSC 15 MINUTES OFFICE 32491 SMITH SMITH OUTPATIEN 1 1 SOREN SOREN T VISIT 15 MINUTES OFFICE 09535 ARIANA WEIFuad OUTPATIEN 1 1 CLINIC [facility]UL T VISIT PSC 25 MINUTES EMERGENCY 99058 GISSEL 1 1 [facility] T VISIT MODERATE SEVERITY HOSPITAL GISSEL - 1 1 [facility] T EMERGENCY 97403 GISSEL 1 1 [facility] T VISIT LIMITED/M INOR PROB OFFICE 49302 SMITH SMITH OUTPATIEN 1 1 SOREN SOREN T NEW 45 MINUTES OFFICE 92790 [facility] 1 1 [place] V[place] [facility]OP[facility]ED 15 [facility] CORAM - 1 1 [facility] T OFFICE 34882 BUFFALO BORDEN III OUTPATIEN 1 1 TRACE CALVIN T VISIT [facility] 15 [facility] CORAM - 1 1 [facility] T OFFICE 09167 BUFFALO BORDEN III OUTPATIEN 1 1 TRACE CALVIN T [facility] 45 [facility] CORAM - 1 1 [facility] CORAM - 1 1 [facility] T OFFICE 28789 LOPEZ LOPEZ OUTPATIEN 1 1 SWAPNA SWAPNA T NEW 45 MINUTES OFFICE 96108 ARIANA NUÑEZLEBRON OUTPATIEN 1 1 CLINIC PARUL T NEW 30 PSC MINUTES HOSPITAL GISSEL - 1 1 [facility] T EMERGENCY 39845 GISSEL 1 1 [facility] T VISIT LIMITED/M INOR PROB HOSPITAL GISSEL - 1 1 [facility] T OFFICE 51104 [facility] OUTPATIEN 1 1 [place] T VISIT ORTHOPAED 15 [facility] MINUTES OFFICE 77495 RINALDINI RINALDINI OUTPATIEN 1 1 MELINDA MELINDA T VISIT 15 MINUTES OFFICE 47584 [facility] 1 1 [place] ION ORTHOPAED NEW/ESTAB ICS PLC PATIENT 40 MIN OFFICE 21972 RINALDINI RINALDINI OUTPATIEN 1 1 MELINDA MELINDA T VISIT 15 MINUTES HOSPITAL ABBIE - 1 1 [facility] 08055 [facility] [place] [facility] 1 1 [facility]UROLOG[facility] ION CENTER NEW/ESTAB SYLVIA PATIENT 80 MIN HOSPITAL GISSEL - 1 1 [facility] T EMERGENCY 73188 GISSEL 1 1 [facility] T VISIT LOW/MODER SEVERITY EMERGENCY 14575 GISSEL YARBROUGH 1 1 [facility] T VISIT MODERATE SEVERITY OFFICE 97691 RINALDINI RINALDINI OUTPATIEN 1 1 MELINDA MELINDA T VISIT 15 MINUTES OFFICE 31173 RINALDINI RINALDINI OUTPATIEN 1 1 MELINDA MELINDA T VISIT 15 MINUTES OFFICE 46890 KMSF BRYANT OUTPATIEN 1 1 NURSE JAM T NEW 45 PRACTITIO MINUTES [facility] HOSPITAL JACOBS - 0 0 [facility] T OFFICE 84342 RINALDINI RINALDINI OUTPATIEN 0 0 MELINDA MELINDA T VISIT 15 MINUTES HOSPITAL UNIVERSIT - 0 0 Y [facility] T OFFICE 05038 [place] [facility]SULT[facility] 0 0 MEDICAL MAR ION SERV NEW/ESTAB FOUNDATIO PATIENT 60 MIN OFFICE 27301 UNIVERSIT OUTPATIEN 0 0 Y [facility] UNIVERSIT - 0 0 Y [facility] T OFFICE 03263 [place] ALVARADO CONSULTAT 0 0 MEDICAL HEA ION SERV NEW/ESTAB FOUNDATIO PATIENT 60 MIN HOSPITAL UNIVERSIT - 0 0 Y [facility] T OFFICE 78998 UNIVERSIT OUTPATIEN 0 0 Y [address] MINUTES OFFICE 70033 RINALDINI RINALDINI OUTPATIEN 0 0 MELINDA MELINDA T VISIT 15 MINUTES OFFICE 76780 RINALDINI RINALDINI OUTPATIEN 0 0 MELINDA MELINDA T VISIT 15 MINUTES [facility] UNIVERSIT - 0 0 [facility] UNIVERSIT - 0 0 Y [facility] T OFFICE 88457 RINALDINI RINALDINI OUTPATIEN 0 0 MELINDA MELINDA T VISIT 10 MINUTES OFFICE 64593 RINALDINI RINALDINI OUTPATIEN 0 0 MELINDA MELINDA T VISIT 10 MINUTES EMERGENCY 06268 RINALDINI RINALDINI 0 0 MELINDA MELINDA DEPARTMEN T VISIT MODERATE SEVERITY OFFICE 03815 RINALDINI RINALDINI OUTPATIEN 0 0 MELINDA MELINDA T VISIT 25 MINUTES OFFICE 37050 RINALDINI RINALDINI OUTPATIEN 0 0 MELINDA MELINDA T VISIT 15 MINUTES EMERGENCY 72541 RINALDINI RINALDINI 0 0 MELINDA MELINDA DEPARTMEN T VISIT MODERATE SEVERITY OFFICE 40427 RINALDINI RINALDINI OUTPATIEN 0 0 , DEEPAK , DEEPAK T VISIT 15 MINUTES HOSPITAL JACOBS - 0 0 [facility] T OFFICE 37276 RINALDINI RINALDINI OUTPATIEN 0 0 , DEEPAK , DEEPAK T VISIT 15 MINUTES HOSPITAL GISSEL - 0 0 [facility] T OFFICE 78445 RINALDINI RINALDINI OUTPATIEN 0 0 , DEEPAK , DEEPAK T VISIT 15 MINUTES HOSPITAL GISSEL - 0 0 [facility] T OFFICE 29417 RINALDINI RINALDINI OUTPATIEN 0 0 , DEEPAK , DEEPAK T VISIT 10 MINUTES OFFICE 67576 RINALDINI RINALDINI OUTPATIEN 0 0 , DEEPAK , DEEPAK T VISIT 15 MINUTES HOSPITAL GISSEL - 0 0 [facility] T OFFICE 83046 RINALDINI RINALDINI OUTPATIEN 0 0 , DEEPAK , DEEPAK T VISIT 10 MINUTES OFFICE 07869 RINALDINI RINALDINI OUTPATIEN 0 0 , DEEPAK , DEEPAK T VISIT 15 MINUTES OFFICE 87332 RINALDINI RINALDINI OUTPATIEN 0 0 , DEEPAK , DEEPAK T VISIT 15 MINUTES OFFICE 92846 RINALDINI RINALDINI OUTPATIEN 0 0 , DEEPAK , DEEPAK T VISIT 15 MINUTES OFFICE 71037 RINALDINI RINALDINI OUTPATIEN 0 0 , DEEPAK , DEEPAK T VISIT 15 MINUTES OFFICE 30366 RINALDINI RINALDINI OUTPATIEN 0 0 , DEEPAK , DEEPAK T VISIT 15 MINUTES OFFICE 11831 [facility] 9 9 STACIE ALARCON ION EYEHLTH & NEW/ESTAB SURG PSC PATIENT 40 MIN OFFICE 96707 RINTORSTENINI RINTORSTENINI OUTPATIEN 9 9 , MELINDA SOTELO M T VISIT 10 MINUTES OFFICE 42477 RINALDINI RINALDINI OUTPATIEN 9 9 , MELINDA SOTELO T VISIT 15 MINUTES OFFICE 73744 JENNIFER LLAMAS, OUTPATIEN 9 9 TRACEY ALVARADO Morenita T VISIT [facility] 25 . MINUTES OFFICE 78839 [facility] OUTPATIEN 9 9 CO T VISIT 5 HOSPITAL MINUTES HOSPITAL GISSEL - 9 9 [facility] T HOSPITAL GISSEL - 9 9 [facility] T OFFICE 64769 RINTORSTENINI AMYINI OUTPATIEN 9 9 , MELINDA SOTELO T VISIT 15 MINUTES HOSPITAL GISSEL - 9 9 [facility] T OFFICE 08222 G[facility]SEL OUTPATIEN 9 9 CO T VISIT 5 HOSPITAL MINUTES EMERGENCY 67953 GISSEL 9 9 CO [facility] T VISIT LOW/MODER SEVERITY HOSPITAL GISSEL - 9 9 CO [facility] T EMERGENCY 03638 AMYINI RINALDINI 9 9 , MELINDA SOTELO [facility] T VISIT MODERATE SEVERITY OFFICE 01012 RINTORSTENINI RINALDINI OUTPATIEN 9 9 , MELINDA SOTELO T VISIT 15 MINUTES HOSPITAL GISSEL - 9 9 CO [facility] T EMERGENCY 21839 GISSEL 9 9 [facility] T VISIT LIMITED/M INOR PROB HOSPITAL GISSEL - 9 9 CO [facility] T HOSPITAL GISSEL - 9 9 [facility] T OFFICE 14816 RINALDINI RINALDINI OUTPATIEN 9 9 , DEEPAK , DEEPAK T VISIT 25 MINUTES OFFICE 70844 [facility] OUTPATIEN 9 9 CO T VISIT 5 HOSPITAL MINUTES OFFICE 45656 JENNIFER LLAMAS, OUTPATIEN 9 9 TRACEY ALVARADO [facility] 45 [facility] MINUTES . OFFICE 99151 RINALDINI RINALDINI OUTPATIEN 9 9 , DEEPAK , DEEPAK T VISIT 15 MINUTES OFFICE 28159 RINALDINI RINALDINI OUTPATIEN 9 9 , DEEPAK , DEEPAK T VISIT 15 MINUTES HOSPITAL GISSEL - 9 9 [facility] T OFFICE 36461 RINALDINI RINALDINI OUTPATIEN 9 9 , DEEPAK , DEEPAK T VISIT 10 MINUTES OFFICE 05774 [facility] PATEL CONSULTKEATON 9 9 MEDICAL CLEMENTE Chuy [facility] NEW/ESTAB FOUNDATIO PATIENT 40 MIN HOSPITAL GISSEL - 9 9 [facility] T OFFICE 69897 RINALDINI RINALDINI OUTPATIEN 9 9 , DEEPAK , DEEPAK T VISIT 10 MINUTES OFFICE 54430 RINALDINI RINALDINI OUTPATIEN 9 9 , DEEPAK , DEEPAK T VISIT 10 MINUTES OFFICE 72424 RINALDINI RINALDINI OUTPATIEN 9 9 , DEEPAK , DEEPAK T VISIT 15 MINUTES OFFICE 44308 RINALDINI RINALDINI OUTPATIEN 9 9 , DEEPAK , DEEPAK T VISIT 10 MINUTES OFFICE 65505 RINALDINI RINALDINI OUTPATIEN 9 9 , DEEPAK , DEEPAK T VISIT 10 MINUTES OFFICE 30709 RINALDINI RINALDINI OUTPATIEN 9 9 , DEEPAK , DEEPAK T VISIT 10 MINUTES HOSPITAL GISSEL - 9 9 [facility] T OFFICE 67903 RINALDINI RINALDINI OUTPATIEN 9 9 , DEEPAK , DEPEAK T VISIT 10 MINUTES HOSPITAL ABBIE - 9 9 [facility] 71379 RINALDINI RINALDINI OUTPATIEN 9 9 , DEEPAK , DEEPAK T VISIT 10 MINUTES OFFICE 02594 RINALDINI RINALDINI OUTPATIEN 9 9 , DEEPAK , DEEPAK T VISIT 10 MINUTES OFFICE 29383 RINALDINI RINALDINI OUTPATIEN 9 9 , DEEPAK , DEEPAK T VISIT 10 MINUTES OFFICE 42094 [facility] INDY OUTPATIEN 9 9 ORIANA DIGGS, T VISIT INTERNAL ROSITA F 15 MED MINUTES OFFICE 01189 [facility] MITCHELL, OUTPATIEN 9 9 [facility] VIKY T VISIT INTERNAL 15 MED MINUTES OFFICE 16528 [facility] JANIS, OUTPATIEN 9 9 [facility] WILLIAM A T NEW 30 INTERNAL MINUTES [facility] HOSPITAL GISSEL - 9 9 [facility] T OFFICE 44386 RINALDINI RINALDINI OUTPATIEN 9 9 , DEEPAK , DEEPAK T VISIT 10 MINUTES OFFICE 26690 RINALDINI RINALDINI OUTPATIEN 9 9 , DEEPAK , DEEPAK T VISIT 15 MINUTES OFFICE 44897 [place] CAMARILLO, OUTPATIEN 9 9 MEDICAL DENNIS T VISIT SERV 15 FOUNDATIO MINUTES HOSPITAL GISSEL - 8 8 [facility] HOSPITAL GISSEL - 8 8 [facility] T OFFICE 44278 RINALDINI RINALDINI OUTPATIEN 8 8 , DEEPAK , DEEPAK T VISIT 10 MINUTES HOSPITAL GISSEL - 8 8 [facility] 8 8 [facility] OUT[facility] T OFFICE 94006 [facility] CAMARILLO, OUTPATIEN 8 8 MEDICAL DENNIS T VISIT SERV 25 FOUNDATIO MINUTES OFFICE 25250 RINALDINI RINALDINI OUTPATIEN 8 8 , DEEPAK , DEEPAK T VISIT 10 MINUTES OFFICE 43835 [facility] CAMARILLO, OUTPATIEN 8 8 MEDICAL DENNIS T VISIT SERV 25 FOUNDATIO MINUTES OFFICE 08032 RINALDINI RINALDINI OUTPATIEN 8 8 , DEEPAK , DEEPAK T VISIT 10 MINUTES HOSPITAL GISSEL - 8 8 CO [facility] T EMERGENCY 63176 G[facility]SEL 8 8 CO [facility] T VISIT LOW/MODER SEVERITY EMERGENCY 10692 [facility] , [facility] T VISIT LIMITED/M INOR PROB OFFICE 16484 RINALDINI RINALDINI OUTPATIEN 8 8 , DEEPAK , DEEPAK T VISIT 10 MINUTES OFFICE 18095 [facility] 8 8 MEDICAL YPARAG T VISIT SERV 15 FOUNDATIO MINUTES HOSPITAL ABBIE - 8 8 [facility] T OFFICE 60876 RINALDINI RINALDINI OUTPATIEN 8 8 , DEEPAK , DEEPAK T VISIT 10 MINUTES OFFICE 36162 MIAHALDINI RINALDINI OUTPATIEN 8 8 , DEEPAK , DEEPAK T VISIT 5 MINUTES OFFICE 60845 RINALDINI RINALDINI OUTPATIEN 8 8 , DEEPAK , DEEPAK T VISIT 10 MINUTES OFFICE 34874 RINALDINI RINALDINI OUTPATIEN 8 8 , DEEPAK , DEEPAK T VISIT 10 MINUTES OFFICE 41236 [facility] 8 8 [facility]ITALMorenita Basilio VISIT CLINIC OF 15 MINUTES [facility]
--- OUTSIDE RECORDS SUMMARY | 2016-12-14 13:15 | External Medical Summary Rpt ---
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 OBSERVATION 12-28-2011 MILLENIUM OF OTHER LABORATORIE SUSPECTED S OF CA MENTAL CONDITION 6279 UNSPECIFIED 12-21-2011 [facility]M MENOPAUSAL& POSTMENOPAU EARNEST DISORDER 28971 HYPERSOMNIA 11-21-2011 [facility], WITH SLEEP PAPER PRODUCTS PRINTER APNEA [facility] UNSPECIFIED HOS 47863 OSTEOARTHRO 11-07-2011 CANDIDA TERAN S UNSPEC WHETHER GEN/LOC SHLDR REGION 13410 OSTEOARTHRO 11-07-2011 CANDIDA TERAN SIS UNSPEC WHETHER GEN/LOC LOWER LEG 7177 CHONDROMALA 11-06-2011 PETTE[facility] JAM ISIS OF [place] 28785 PLICA 11-06-2011 [facility] SYNDROME 74320 CHONDROMALA 11-03-2011 PETTE[facility] JAM ISIS 7871 HEARTBURN 10-25-2011 JUAN-CO NKLIN NETO 47927 UNSPECIFIED 10-04-2011 [facility], SLEEP PAPER PRODUCTS PRINTER APNEA [facility] 5368 DYSPEPSIA&O 09-25-2011 [facility], THER SPEC PAPER PRODUCTS PRINTER DISORDERS [facility] STOMACH 5589 OTH&UNSPEC 09-25-2011 [facility], NONINFECTIO PAPER PRODUCTS PRINTER US [facility] ITIS&COLITI S 2114 BENIGN 09-19-2011 PATHOLOGY & NEOPLASM OF CYTOLOGY RECTUM AND LAB ANAL CANAL 7821 RASH AND 09-14-2011 TAMLEBRON TERAN OTHER NONSPECIFIC SKIN ERUPTION 5789 UNSPECIFIED 08-23-2011 [facility] HEMORRHAGE NKLIN NETO OF GASTROINTES TINAL TRACT 01767 SWELLING OF 08-08-2011 [facility] LIMB RADIOLOGY ASSOCIAT 33823 CONTUSION 08-08-2011 [facility] 9593 INJURY 08-08-2011 [facility] OTHER&UNSPE RADIOLOGY CIFIED ASSOCIAT [facility]&WRI ST 16568 REGULAR 07-03-2011 [facility] ASTIGMATISM GRE 7092 SCAR 05-31-2011 [facility] OF SKIN 82796 INCONCLUSIV 05-31-2011 [place] [facility] E MAMMOGRAM SERV [...] [facility] [place] TUNNEL [facility]IC SYNDROME S PLC 71079 UNSPEC 04-07-2011 [facility] [place] DISORDERS ORTHOPAEDIC BURSAE&TEND S PLC ONS SHOULDER REGION 591 HYDRONEPHRO 03-24-2011 [facility] SIS SWAPNA 5951 CHRONIC 03-24-2011 [facility] CYSTITIS 53210 MICROSCOPIC 03-24-2011 [facility] 7906 OTHER 03-17-2011 [facility] ABNORMAL [facility] CHEMISTRY 67848 UNS ADVRS 03-17-2011 [facility] EFF UNS RX [facility]ICINAL&B HOLDING IOLOGICAL SBSTNC 81680 INCOMPLETE 02-17-2011 [facility] BLADDER SWAPNA EMPTYING 55662 CYSTOCELE 01-27-2011 [facility] WITHOUT HOSPITAL MENTION UTERINE PROLAPSE MIDLN 6256 FEMALE 01-27-2011 [facility] STRESS HOSPITAL INCONTINENC E 64469 PRUNE BELLY 01-18-2011 [facility] 89124 CHRONIC 01-18-2011 [facility] FATIGUE [facility] SYNDROME HOLDING 5939 UNSPECIFIED 01-17-2011 [place] DISORDER RADIOLOGY OF KIDNEY ASSOCIAT AND URETER 56448 GROSS 01-17-2011 [facility] 5982 POSTOPERATI 01-13-2011 [facility] VE URETHRAL SWAPNA STRICTURE 33524 MIXED 01-11-2011 [facility] INCONTINENC HOSPITAL E URGE AND STRESS 48694 URGE 01-10-2011 [facility] INCONTINENC SWAPNA E 62768 COMPLETE 12-20-2010 [facility] [place] RUPTURE OF ORTHOPAEDIC ROTATOR S PLC CUFF 7919 OTHER 12-13-2010 [facility] NONSPECIFIC HOSPITAL FINDING EXAMINATION OF URINE 59240 TRIGGER 12-05-2010 [facility] [place] FINGER ORTHOPAEDIC S PLC 7102 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 V1581 PERS HX 11-01-2010 [facility] NONCOMPLIAN MELINDA CE W/MED TX PRS [facility] 15692 SPRAIN AND 10-20-2010 [employer] STRAIN OF UNSPECIFIED SITE OF WRIST 7226 DEGENERATIO 10-18-2010 RINALDINI N MELINDA INTERVERTEB RAL DISC SITE UNSPEC 7231 CERVICALGIA 09-26-2010 [facility] IMAGING ASS 38102 UNSPECIFIED 09-21-2010 [facility] VIRAL HOSPITAL INFECTION IN CCE & UNS SITE 04089 DEHYDRATION 09-21-2010 [facility] HOSPITAL 3384 CHRONIC 09-21-2010 [facility] SYLVIA 51915 SPRAIN AND 09-20-2010 [facility]I STRAIN OF MELINDA UNSPECIFIED SITE OF HAND V571 OTHER 07-20-2010 [facility] PHYSICAL HOSPITAL THERAPY 98297 UNSPECIFIED 07-13-2010 [place] [facility] ABNORMAL SERV MAMMOGRAM FOUNDATIO 87929 LUMP OR 06-27-2010 [place] [facility] MASS IN SERV BREAST FOUNDATIO 44187 MAMMOGRAPHI 06-21-2010 [facility] MICROCALCIF ICATION 5272 SIALOADENIT 06-16-2010 RIN[facility]INI IS MELINDA 14626 OTHER 06-16-2010 [facility] ABNORMAL MELINDA FINDING RADIOLOGICA L EXAM BREAST 87169 MASTODYNIA 05-24-2010 [facility] 9160 HIP THI 05-19-2010 [facility] LEG&ANK MELINDA ABRASION/FR ICION BURN W/O INF 65060 VOLUME 04-12-2010 [facility] DEPLETION MELINDA UNSPECIFIED 26270 DIVERTICULI 03-25-2010 [facility] TIS OF MELINDA COLON 67661 DIVERTICULO 03-17-2010 [facility] SIS OF MELINDA COLON 5931 HYPERTROPHY 03-17-2010 [facility] OF KIDNEY RADIOLOGY ASSOCIAT 5968 OTHER 03-17-2010 [facility] SPECIFIED RADIOLOGY DISORDERS ASSOCIAT OF BLADDER 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 EARNEST STATUS V8281 SPECIAL 07-23-2009 DORIAN OJEDA M.D.P.S.C. OSTEOPOROSI S 96442 SQUAMOUS 06-07-2009 [place] INST FOR BLEPHARITIS EYEHLTH & SURG PSC 11733 UNSPECIFIED 06-07-2009 [place]ST FOR TEAR FILM EYEHLTH & INSUFFICIEN SURG PSC CY 3569 UNSPEC 05-19-2009 JENNIFER HEREDIT&IDI KWADWO ALVARADO M.D.P.S.C. PERIPHERAL NEUROPATHY V570 CARE 05-13-2009 [facility] INVOLVING HOSPITAL BREATHING EXERCISES V5862 LONG-TERM 05-13-2009 [facility] (CURRENT) HOSPITAL USE OF ANTIBIOTICS 61387 CHRONIC 05-05-2009 ZENON, OBSTRUCTIVE DEEPAK ASTHMA WITH EXACERBATIO N 4580 ORTHOSTATIC 05-04-2009 [facility] HOSPITAL HYPOTENSION 07414 OTHER 05-04-2009 [facility] CONVULSIONS HOSPITAL 7892 SPLENOMEGAL 05-04-2009 [facility] Y [facility] PSC 6926 UNSPECIFIED 04-11-2009 [facility] [place] [facility] DISORDER 9134 ELB 04-11-2009 [facility] FORARM&WRST HOSPITAL INSECT BITE NONVENOMOUS W/O INF 8059 OPN FX UNS 03-15-2009 RINALDINI, PART VERT DEEPAK COLUMN W/O SP CRD INJURY 52269 PAIN IN 03-09-2009 KATJA C JOINT, TYRONE ANKLE AND FOOT 96890 SPONDYLOSIS 01-18-2009 [place] [facility] UNSPEC SERV SITE W/O FOUNDATIO MENTION MYELOPATHY 31092 PATHOLOGIC 01-07-2009 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 REGION SPRAIN&STRA IN V5427 AFTERCARE 01-07-2009 [facility] HEALING HOSPITAL PATHOLOGIC FRACTURE VERTEBRAE 4658 ACUTE URIS 12-15-2008 RINALDINI, OF OTHER DEEPAK MULTIPLE SITES 84345 DISPLCMT 11-30-2008 [facility] LUMBAR [facility] INTERVERT ASSOCIATES DISC W/O PSC MYELOPATHY 25483 STRESS 11-30-2008 [facility] FRACTURE OF HOSPITAL OTHER BONE 20051 ATHEROSCLER 11-06-2008 [facility] EXTREMITIES UNSPEC 514 PULMONARY 09-28-2008 [facility]OC[facility] HYPOSTASIS PSC 2165 BENIGN 07-31-2008 PATHOLOGY & NEOPLASM OF CYTOLOGY SKIN OF LAB TRUNK EXCEPT SCROTUM E9064 BITE OF 07-31-2008 PATHOLOGY & NONVENOMOUS CYTOLOGY ARTHROPOD LAB 7079 CHRONIC 07-30-2008 [facility] ULCER OF HOSPITAL UNSPECIFIED SITE 7099 UNSPECIFIED 07-30-2008 RINALDINI, DISORDER DEEPAK OF SKIN&SUBCUT ANEOUS TISSUE 7210 CERVICAL 07-16-2008 [facility] SPONDYLOSIS RADIOLOGY WITHOUT ASSOCIATES MYELOPATHY PSC V1272 PERSONAL 07-13-2008 [place] [facility] HISTORY OF SERV COLONIC FOUNDATIO POLYPS 11465 OTHER 06-18-2008 RINALDINI, SPECIFIED DEEPAK CIRCULATORY SYSTEM DISORDERS 17577 UNSPECIFIED 05-02-2008 [facility] ESOPHAGITIS 99345 POLYURIA 04-09-2008 [facility] 10882 OBESITY, 11-04-2007 [facility] UNSPECIFIED [facility] 98690 GEN 11-04-2007 RINTORSTENINI, OSTEOARTHRO DEEPAK SIS INVOLVING MULTIPLE SITES V074 HORMONE 08-23-2007 [facility] V6700 FOLLOW-UP 08-23-2007 WOMEN'S EXAMINATION HEALTH FOLLOWING [...] ve LO 37 [address] 50 17 17 16 RE AM 5 [...] 80 0- 1- 00 07 L ve AZ 21 20 20 62 CA DE 61 [...] TA MA BL CY ET #2 AZ 00 03 03 30 30 00 TO [...] 80 1- 4- 00 07 L ve AZ 20 20 20 61 CA DE 81 17 17 00 RE 0 40 20 PH AR MG MA CY TA BL #2 ET ES 65 03 03 30 30 00 TO CI 86 -0 -2 .0 00 TA ti TA 20 1- 4- 00 07 L ve LO 37 [address] 50 17 17 36 RE AM 5 [...] CA ZA 11 [address] 0 31 IN PH E AR 10 [...] DR CY 40 #2 MG CA P AZ 00 02 03 30 30 00 TO [...] CA ZA 11 [address] 0 31 IN PH E AR 10 MA CY MG #2 TA BL ET FU 00 01 02 30 30 00 TO RO 78 -3 -2 .0 00 TA ti SE 11 1- 4- 00 07 L ve AZ 81 20 20 61 CA DE 81 [...] ve LO 37 [address] 50 17 17 36 RE AM 5 [...] CA ZA 11 [address] 0 31 IN PH E AR 10 [...] 11 3- 3- 00 07 L ve AZ 81 20 20 60 CA DE 81 [...] ve LO 37 [address] 50 17 17 36 RE AM 5 [...] 1- 1- 00 IS [address] 50 20 20 LE N AM 91 [...] 7- 7- 00 IS [address] 50 20 20 LE N AM 91 [address] LEROY HB UG T R 40 CO MP MG AN Y TA BL ET CI 57 09 09 0 2. 4 CA 68 TA Ac TA 66 -0 -0 00 RL 56 MA ti LO 40 1- 1- 0 IS [address] 50 20 20 LE N AM 88 [address] LEROY HB UG T R 20 CO MP MG AN Y TA BL ET CT 37 08 08 3 56 28 CA [...] 0 14 7 CA [address] 71 -1 -1 .0 RL 47 BA [...] CO MP TA AN BL Y ET CT 00 07 07 2 30 30 CA [...] AR la 6 MA bl CY e CT 37 05 06 1 56 28 CA [...] 0 14 7 CA [address] 71 -1 -1 .0 RL 24 BA [...] 0 14 7 CA [address] 71 -2 -2 .0 RL 17 BA [...] bl UG e CO MP AN Y CT 37 05 05 1 56 28 CA [...] 0 30 30 CA [address] 14 -1 -1 .0 RL 12 MA [...] TA CO BL MP ET AN Y CT 37 01 03 1 56 28 CA [...] kylie UG e CO MP AN Y CT 37 01 01 1 56 28 CA [...] AR la 0 MA bl CY e CT 00 11 12 3 6. 15 SO 35 No Ac OV 08 -2 -2 70 PE 86 t ti EN 51 4- 3- 0 RS 13 Av ve TI 13 20 20 ai L 20 10 10 FA la HF 1 AZ bl A LY e 90 DR MC [...] ai 31 10 10 FA la 4 [place] bl LY e DR UG CT 00 11 11 3 6. 15 SO 35 No Ac OV 08 -2 -2 70 PE 86 t ti EN 51 4- 4- 0 RS 13 Av ve TI 13 20 20 ai L 20 10 10 FA la HF 1 AZ bl A LY e 90 DR CAMPBELL [...] ai 31 10 10 FA la 4 AZ bl LY e DR UG CT 00 09 10 2 6. 15 SO 35 No Ac OV 08 -2 -3 70 PE 29 t ti EN 51 4- 0- 0 RS 23 Av ve TI 13 20 20 ai L 20 10 10 FA la HF 1 AZ bl A LY e 90 DR CAMPBELL UG G IN PEREZ LE R CT 37 09 10 2 56 28 SO 35 No Ac IL 00 -2 -3 .0 PE 32 t ti OS 00 9- 0- 00 RS 59 Av ve EC 45 20 20 ai 50 10 10 FA la OT 4 AZ bl C LY e [address] [...] 0 6. 3 SO [address] 78 -2 -2 00 PE 52 t ti AZ 11 1- 1- 0 RS 37 Av ve OL 06 20 20 ai AM 10 10 10 FA la 5 AZ bl 0. LY e 25 DR MG UG TA BL ET 00 08 10 3 14 20 SO 35 No Ac 59 -2 -1 .6 PE 02 t ti 70 4- 4- 99 RS 41 Av ve 01 20 20 ai 31 10 10 FA la 4 AZ bl LY e DR UG CT 00 09 10 2 6. 15 SO 35 No Ac OV 08 -2 -1 70 PE 29 t ti EN 51 4- 4- 0 RS 23 Av ve TI 13 20 20 ai L 20 10 10 FA la HF 1 AZ bl A LY e 90 DR MC UG G IN PEREZ LE R EF 00 10 10 3 30 12 SO 35 No Ac FE 00 -1 -1 .0 PE 46 t ti XO 80 4- 4- 00 RS 63 Av ve R 83 20 20 ai XR 72 10 10 FA la 2 AZ bl [address] MG UG CA PS UL E ZO 00 10 10 0 30 30 SO 35 No Ac LP 09 -1 -1 .0 PE 46 t ti ID 30 4- 4- 00 RS 96 Av ve EM 07 20 20 ai 30 10 10 FA la TA 1 AZ bl RT LY e RA TE DR 5 UG MG TA BL ET CT 37 09 09 2 56 28 SO 35 No Ac IL 00 -2 -2 .0 PE 32 t ti OS 00 9- 9 00 RS 59 Av ve EC 45 20 20 ai 50 10 10 FA la OT 4 AZ bl C LY e [address] UG MG TA BL ET 00 09 09 0 10 5 SO 35 No Ac 14 -2 -2 .0 PE 29 t ti 31 7- 7- 00 RS 73 Av ve 47 20 20 ai 70 10 10 FA la 1 AZ bl LY e DR UG CT 00 09 09 2 6. 15 SO 35 No Ac OV 08 -2 -2 70 PE 29 t ti EN 51 4- 4- 0 RS 23 Av ve TI 13 20 20 ai L 20 10 10 FA la HF 1 AZ bl A LY e 90 DR UG [...] ai 13 10 10 FA la 8 AZ bl LY e DR UG GA 68 09 09 0 60 30 SO 35 No Ac BA 46 -1 -1 .0 PE 21 t ti PE 20 6- 6- 00 RS 39 Av ve NT 12 20 20 ai IN 60 10 10 FA la 5 AZ bl 60 LY e [address] UG TA BL ET 00 08 09 3 14 20 SO 35 No Ac 59 -2 -1 .6 PE 02 t ti 70 4- 3- 99 RS 41 Av ve 01 20 20 ai 31 10 10 FA la 4 AZ bl LY e DR UG CI 55 09 09 0 14 7 SO [address] 11 -0 -0 .0 PE 10 t ti OF 10 2- 2- 00 RS 08 Av ve LO 12 20 20 ai XA 70 10 10 FA la CI 1 AZ bl N LY e HC L DR 50 UG 0 MG TA B 00 08 08 0 14 7 SO 35 No Ac 14 -2 -2 .0 PE 02 t ti 31 4- 4- 00 RS 39 Av ve 47 20 20 ai 70 10 10 FA la 1 AZ bl LY e DR UG CT 00 08 08 5 30 30 SO 35 No Ac EM 04 -2 -2 .0 PE 02 t ti AR 61 4- 4- 00 RS 42 Av ve IN 10 20 20 ai 28 10 10 FA la 0. 1 AZ bl 62 LY e [address] UG TA BL ET CT 37 05 08 3 56 28 SO 34 No Ac IL 00 -1 -1 .0 PE 31 t ti OS 00 8- 9- 00 RS 15 Av ve EC 45 20 20 ai 50 10 10 FA la OT 4 AZ bl C LY e [address] UG MG TA BL ET 00 07 08 3 14 15 SO 34 No Ac 59 -2 -1 .6 PE 81 t ti 70 8- 9 99 RS 21 Av ve 01 20 20 ai 31 10 10 FA la 4 [place] bl LY e DR UG HY 00 08 08 0 40 10 SO [address] 18 -1 -1 .0 PE 94 t ti OX 50 3- 3- 00 RS 12 Av ve YZ 61 20 20 ai IN 30 10 10 FA la E 5 AZ bl PA LY e M 25 DR UG MG CA P DI 00 08 08 0 30 15 SO 34 No Ac PH 37 -1 -1 .0 PE 94 t ti EN 80 3- 3- 00 RS 13 Av ve OX 41 20 20 ai YL 51 10 10 FA la AT 0 AZ bl E- LY e AT RO DR P UG 2. 5- 0. 02 5 MARKS 00 08 08 0 14 14 SO 34 No Ac LF 60 -1 -1 .0 PE 92 t ti AM 35 1- 1- 00 RS 64 Av ve ET 78 20 20 ai HO 12 10 10 FA la XA 8 AZ bl ZO LY e LE -T DR MP UG DS TA BL ET PE 00 07 08 1 59 1 SO 34 No Ac RM 47 -1 -0 .0 PE 71 t ti ET 25 5- 5- 00 RS 19 Av ve HR 24 20 20 ai IN 26 10 10 FA la 7 AZ bl 1% LY e LO DR TI UG ON 00 07 07 3 14 15 SO 34 No Ac 59 -2 -2 .6 PE 81 t ti 70 8 8 99 RS 21 Av ve 01 20 20 ai 31 10 10 FA la 4 AZ bl LY e DR UG AR 24 07 07 4 15 10 SO 34 No Ac TI 38 -2 -2 .0 PE 80 t ti FI 50 7- 7- 00 RS 49 Av ve CI 00 20 20 ai AL 60 10 10 FA la 5 AZ bl TE LY e AR S DR UG OP S TR 50 07 07 4 15 30 SO 34 No Ac AZ 11 -2 -2 .0 PE 80 t ti OD 10 7- 7- 00 RS 50 Av ve ON 43 20 20 ai E 30 10 10 FA la 50 3 AZ bl LY e MG DR TA UG BL ET CT 37 05 07 3 56 28 SO 34 No Ac IL 00 -1 -2 .0 PE 31 t ti OS 00 8- 6- 00 RS 15 Av ve EC 45 20 20 ai 50 10 10 FA la OT 4 AZ bl C LY e [address] UG MG TA BL ET CT 00 06 07 2 6. 15 SO 34 No Ac OV 08 -2 -2 70 PE 54 t ti EN 51 1- 6- 0 RS 81 Av ve TI 13 20 20 ai L 20 10 10 FA la HF 1 AZ bl A LY e 90 DR VOGEL G IN PEREZ LE R PE 00 07 07 1 59 1 SO 34 No Ac RM 47 -1 -1 .0 PE 71 t ti ET 25 5- 5- 00 RS 19 Av ve HR 24 20 20 ai IN 26 10 10 FA la 7 AZ bl 1% LY e LO DR CHAR [...] 0 UM 00 10 10 FA 5 AZ EL LY LE N DR Demetrice UG TI 00 05 07 2 60 30 SO 34 FL Ac ZA 18 -0 -0 .0 PE 19 IN ti NI 50 4- 9- 00 RS 71 CH ve DI 03 20 20 UM NE 45 10 10 FA 1 AZ EL HC LY LE L N 2 DR Demetrice MG UG TA BL ET 00 03 07 5 14 15 SO 33 No Ac 59 -1 -0 .6 PE 76 t ti 70 2- 6- 99 RS 71 Av ve 01 20 20 ai 31 10 10 FA la 4 AZ bl LY e DR UG CT 00 03 07 3 30 30 SO 33 No Ac EM 04 -1 -0 .0 PE 76 t ti AR 61 2- 6- 00 RS 72 Av ve IN 10 20 20 ai 28 10 10 FA la 0. 1 AZ bl 62 LY e [address] UG TA BL ET CT 00 06 07 2 6. 15 SO 34 No Ac OV 08 -2 -0 70 PE 54 t ti EN 51 1- 6- 0 RS 81 Av ve TI 13 20 20 ai L 20 10 10 FA la HF 1 AZ bl A LY e 90 DR VOGEL G IN PEREZ LE R CT 00 06 06 2 6. 15 SO 34 No Ac OV 08 -2 -2 70 PE 54 t ti EN 51 1- 1- 0 RS 81 Av ve TI 13 20 20 ai L 20 10 10 FA la HF 1 AZ bl A LY e 90 DR MC UG G IN PEREZ LE R 00 03 06 5 14 15 SO 33 No Ac 59 -1 -1 .6 PE 76 t ti 70 2- 6- 99 RS 71 Av ve 01 20 20 ai 31 10 10 FA la 4 [place] bl LY e DR UG CT 37 05 06 3 56 28 SO 34 No Ac IL 00 -1 -1 .0 PE 31 t ti OS 00 8- 6- 00 RS 15 Av ve EC 45 20 20 ai 50 10 10 FA la OT 4 AZ bl C LY e [address] UG MG TA BL ET CE 68 06 06 0 28 7 SO 34 No Ac PH 18 -1 -1 .0 PE 49 t ti AL 00 4- 4- 00 RS 94 Av ve EX 12 20 20 ai IN 20 10 10 FA la 2 AZ bl 50 LY [address] [...] 0 UM 00 10 10 FA 5 AZ EL LY LE N DR Demetrice UG CT 00 03 06 3 30 30 SO 33 No Ac EM 04 -1 -0 .0 PE 76 t ti AR 61 2- 8- 00 RS 72 Av ve IN 10 20 20 ai 28 10 10 FA la 0. 1 AZ bl 62 LY [address] NIKKY TA BL ET 00 03 05 5 14 15 SO 33 No Ac 59 -1 -2 .6 PE 76 t ti 70 2- 7 99 RS 71 Av ve 01 20 20 ai 31 10 10 FA la 4 [place] bl LY e DR UG CT 00 03 05 3 6. 15 SO 33 No Ac OV 08 -1 -2 70 PE 76 t ti EN 51 2- 7- 0 RS 73 Av ve TI 13 20 20 ai L 20 10 10 FA la HF 1 AZ bl A LY e 90 DR CAMPBELL UG G IN PEREZ LE R AD 00 05 05 2 60 30 SO 34 No Ac VA 17 -2 -2 .0 PE 38 t ti IR 30 7- 7- 00 RS 21 Av ve 69 20 20 ai 25 60 10 10 FA la 0- 0 AZ bl [address] HARRISON UG US CL 00 05 05 0 30 30 SO 34 No Ac ON 37 -2 -2 .0 PE 36 t ti ID 80 5- 5- 00 RS 78 Av ve IN 15 20 20 ai E 21 10 10 FA la HC 0 AZ bl L LY e 0. 1 DR MG UG TA BL ET AZ 00 05 05 0 6. 5 SO 34 No Ac IT 78 -1 -1 00 PE 31 t ti HR 11 8- 8- 0 RS 14 Av ve OM 49 20 20 ai YC 66 10 10 FA la IN 8 AZ bl LY e [address] MG UG TA BL ET CT 37 05 05 3 56 28 SO 34 No Ac IL 00 -1 -1 .0 PE 31 t ti OS 00 8- 8- 00 RS 15 Av ve EC 45 20 20 ai 50 10 10 FA la OT 4 AZ bl C LY e [address] [...] ai 31 10 10 FA la 4 AZ bl LY e DR UG CT 00 03 05 3 30 30 SO 33 No Ac EM 04 -1 -0 .0 PE 76 t ti AR 61 2- 5- 00 RS 72 Av ve IN 10 20 20 ai 28 10 10 FA la 0. 1 AZ bl 62 LY e [address] UG TA BL ET CT 00 03 05 3 6. 15 SO 33 No Ac OV 08 -1 -0 70 PE 76 t ti EN 51 2- 5- 0 RS 73 Av ve TI 13 20 20 ai L 20 10 10 FA la HF 1 AZ bl A LY e 90 DR MC UG G IN PEREZ LE R TI 00 05 05 2 60 30 SO 34 FL Ac ZA 18 -0 -0 .0 PE 19 IN ti NI 50 4- 4- 00 RS 71 CH ve DI 03 20 20 UM NE 45 10 10 FA 1 AZ EL HC LY LE L N 2 [...] 80 10 10 FA la HC 1 AZ bl L LY e 10 DR MG UG TA BL ET AL 24 04 04 1 24 24 SO 34 No Ac LE 38 -1 -1 .0 PE 03 t ti RG 50 4- 4- 00 RS 24 Av ve Y 47 20 20 ai 25 96 10 10 FA la 2 AZ bl MG LY e TA DR BL UG ET CT 37 01 04 3 56 28 SO 33 No Ac IL 00 -0 -0 .0 PE 25 t ti OS 00 7- 8- 00 RS 48 Av ve EC 45 20 20 ai 50 10 10 FA la OT 4 AZ bl C LY e [address] UG MG TA BL ET 00 03 04 5 14 15 SO 33 No Ac 59 -1 -0 .6 PE 76 t ti 70 2- 8- 99 RS 71 Av ve 01 20 20 ai 31 10 10 FA la 4 AZ bl LY e DR UG CT 00 03 04 3 6. 15 SO 33 No Ac OV 08 -1 -0 70 PE 76 t ti EN 51 2- 8- 0 RS 73 Av ve TI 13 20 20 ai L 20 10 10 FA la HF 1 AZ bl A LY e 90 DR MC UG G IN PEREZ LE R VE 68 04 04 3 30 30 SO 33 No Ac NL 38 -0 -0 .0 PE 93 t ti AF 20 2- 2- 00 RS 99 Av ve AX 02 20 20 ai IN 10 10 10 FA la E 1 AZ bl HC LY e L 75 DR UG MG TA BL ET TR 00 04 04 3 30 30 SO 33 No Ac IC 07 -0 -0 .0 PE 94 t ti OR 46 2- 2- 00 RS 00 Av ve 12 20 20 ai 48 29 10 10 FA la 0 AZ bl MG LY e TA DR BL UG ET 00 09 03 11 36 30 YO 21 No Ac 18 -0 -3 0. UR 04 t ti 57 3- 1- 00 2 Av ve 32 20 20 0 PH ai 26 09 10 AR la 0 MA bl CY e CI 55 03 03 0 10 10 SO [address] 11 -1 -1 .0 PE 76 t ti OF 10 2- 2- 00 RS 68 Av ve LO 12 20 20 ai XA 70 10 10 FA la CI 1 AZ bl N LY e HC L DR 50 UG 0 MG TA B 00 03 03 5 14 15 SO 33 No Ac 59 -1 -1 .6 PE 76 t ti 70 2- 2- 99 RS 71 Av ve 01 20 20 ai 31 10 10 FA la 4 AZ bl LY e DR UG CT 00 03 03 3 30 30 SO 33 No Ac EM 04 -1 -1 .0 PE 76 t ti AR 61 2- 2- 00 RS 72 Av ve IN 10 20 20 ai 28 10 10 FA la 0. 1 AZ bl 62 LY e [address] UG TA BL ET CT 00 03 03 3 6. 15 SO 33 No Ac OV 08 -1 -1 70 PE 76 t ti EN 51 2- 2- 0 RS 73 Av ve TI 13 20 20 ai L 20 10 10 FA la HF 1 AZ bl A LY e 90 DR MC UG G IN PEREZ LE R EY 00 03 03 0 12 30 SO 33 No Ac E 90 -1 -1 0. PE 76 t ti WA 45 2- 2- 00 RS 76 Av ve SH 37 20 20 0 ai 72 10 10 FA la SO 0 AZ bl RAUL LY e TI ON DR UG CT 37 01 03 3 56 28 SO 33 No Ac IL 00 -0 -0 .0 PE 25 t ti OS 00 7- 8- 00 RS 48 Av ve EC 45 20 20 ai 50 10 10 FA la OT 4 AZ bl C LY e [address] UG MG TA BL ET 00 03 03 1 90 30 SO 33 LA Ac 59 -0 -0 .0 PE 66 RS ti 10 2- 2- 00 RS 66 ON ve 54 20 20 00 10 10 FA LA 5 AZ UR LY EN K DR UG 00 02 02 00 14 15 SO 33 No Ac 59 -1 -2 .6 PE 59 t ti 70 9- 6- 99 RS 45 Av ve 01 20 20 ai 31 10 10 FA la 4 [place] bl LY e DR UG MU 63 02 02 00 40 10 SO 33 No Ac CI 82 -0 -2 .0 PE 50 t ti NE 40 8- 6- 00 RS 40 Av ve X 00 20 20 ai ER 83 10 10 FA la 4 AZ bl 60 LY e [address] UG TA BL ET CT 37 01 02 01 56 28 SO 33 No Ac IL 00 -0 -2 .0 PE 25 t ti OS 00 7- 6- 00 RS 48 Av ve EC 45 20 20 ai 50 10 10 FA la OT 4 AZ bl C LY e [address] SHER MG TA BL ET CT 00 02 02 00 6. 15 SO 33 No Ac OV 08 -1 -2 70 PE 59 t ti EN 51 9- 6- 0 RS 44 Av ve TI 13 20 20 ai L 20 10 10 FA la HF 1 AZ bl A LY e 90 DR VOGEL G IN PEREZ LE R AZ 64 02 02 00 6. 5 SO 33 No Ac IT 67 -0 -2 00 PE 50 t ti HR 90 8- 6- 0 RS 39 Av ve OM 96 20 20 ai YC 10 10 10 FA la IN 5 AZ bl LY e [address] UG TA BL ET 00 12 02 01 90 30 SO 33 LA Ac 59 -3 -1 .0 PE 19 RS ti 10 0- 1- 00 RS 65 ON ve 54 20 20 00 09 10 FA LA 5 AZ UR LY EN K DR NIKKY 00 05 02 06 36 30 YO 18 No Ac 18 -2 -1 0. UR 98 t ti 57 2- 1- 00 4 Av ve 32 20 20 0 PH ai 26 09 10 AR la 0 MA bl CY e CT 00 12 01 01 6. 15 SO 33 No Ac OV 08 -1 -2 70 PE 09 t ti EN 51 6- 8- 0 RS 53 Av ve TI 13 20 20 ai L 20 09 10 FA la HF 1 AZ bl A LY e 90 DR VOGEL G IN PEREZ LE R CY 00 12 01 01 30 30 SO 33 FL Ac MB 00 -1 -2 .0 PE 06 IN ti AL 23 2- 8- 00 RS 47 CH ve TA 23 20 20 UM 56 09 10 FA 20 0 AZ EL LY LE MG N DR Suresh CA UG PS UL E TI 00 12 01 00 60 30 SO 33 LA Ac ZA 18 -1 -2 .0 PE 06 RS ti NI 50 2- 8- 00 RS 48 ON ve DI 03 20 20 NE 45 09 10 FA LA 1 AZ UR HC LY EN L K 2 DR UG TA BL ET 00 12 01 01 14 20 SO 33 No Ac 59 -1 -2 .6 PE 09 t ti 70 6- 8- 99 RS 52 Av ve 01 20 20 ai 31 09 10 FA la 4 AZ bl LY e DR UG CT 37 01 01 00 56 28 SO 33 No Ac IL 00 -0 -1 .0 PE 25 t ti OS 00 7- 4- 00 RS 48 Av ve EC 45 20 20 ai 50 10 10 FA la OT 4 AZ bl C LY e [address] UG MG TA BL ET 64 01 01 00 12 30 SO 33 No Ac 72 -0 -1 0. PE 25 t ti 00 7- 4- 00 RS 47 Av ve 15 20 20 0 ai 80 10 10 FA la 6 AZ bl LY e DR NIKKY 00 12 01 00 90 30 SO 33 LA Ac 59 -3 -1 .0 PE 19 RS ti 10 0- 4- 00 RS 65 ON ve 54 20 20 00 09 10 FA LA 5 AZ UR LY EN K DR SHER 00 [...] UM 56 09 09 FA 20 0 AZ EL LY LE MG N DR J CA UG PS UL E CT 00 12 12 00 6. 15 SO 33 No Ac OV 08 -1 -3 70 PE 09 t ti EN 51 6- 1- 0 RS 53 Av ve TI 13 20 20 ai L 20 09 09 FA la HF 1 AZ bl A LY e 90 DR VOGEL G IN PEREZ LE R CT 00 11 12 01 30 30 SO 32 No Ac EM 04 -0 -3 .0 PE 74 t ti AR 61 6- 1- 00 RS 77 Av ve IN 10 20 20 ai 28 09 09 FA la 0. 1 AZ bl 62 LY e [address] UG TA BL ET TI 00 10 12 01 60 30 SO 32 LA Ac ZA 18 -0 -3 .0 PE 49 RS ti NI 50 7- 1- 00 RS 88 ON ve DI 03 20 20 NE 45 09 09 FA LA 1 AZ UR HC LY EN L K 2 DR MG UG TA BL ET 00 12 12 00 14 20 SO 33 No Ac 59 -1 -3 .6 PE 09 t ti 70 6- 1- 99 RS 52 Av ve 01 20 20 ai 31 09 09 FA la 4 AZ bl LY e DR UG 00 10 12 01 3. 15 SO 32 BL Ac 16 -2 -0 50 PE 64 AN ti 80 7- 3- 0 RS 42 DF ve 02 20 20 OR 63 09 09 FA D 8 AZ DA LY D DR SHER 00 05 12 04 36 30 YO 18 No Ac 18 -2 -0 0. UR 98 t ti 57 2- 3- 00 4 Av ve 32 20 20 0 PH ai 26 09 09 AR la 0 MA bl CY e CT 64 10 11 00 60 30 SO 32 No Ac EV 76 -1 -1 .0 PE 49 t ti AC 40 2- 9- 00 RS 91 Av ve ID 04 20 20 ai 61 [address] 3 AZ bl LY e 30 DR UG CA PS UL E CT 00 11 11 00 30 30 SO 32 No Ac EM 04 -0 -1 .0 PE 74 t ti AR 61 6- 9- 00 RS 77 Av ve IN 10 20 20 ai 28 09 09 FA la 0. 1 AZ bl 62 LY [address] NIKKY TA BL ET 00 08 11 03 14 15 SO 31 No Ac 59 -1 -1 .6 PE 97 t ti 70 1- 9- 99 RS 04 Av ve 01 20 20 ai 31 09 09 FA la 4 AZ bl LY e DR SHER CT 00 08 11 03 6. 15 SO 31 No Ac OV 08 -1 -1 70 PE 97 t ti EN 51 1- 9- 0 RS 05 Av ve TI 13 20 20 ai L 20 09 09 FA la HF 1 AZ bl A LY e 90 DR CAMPBELL UG G IN PEREZ LE R 00 10 11 00 3. 15 SO 32 BL Ac 16 -2 -0 50 PE 64 AN ti 80 7- 5- 0 RS 42 DF ve 02 20 20 OR 63 09 09 FA D 8 AZ DA LY D DR SHER GE 24 10 10 00 5. 7 SO 32 LA Ac NT 20 -1 -2 00 PE 49 RS ti AM 80 2- 2- 0 RS 92 ON ve IC 58 20 20 IN 06 09 09 FA LA 0 AZ UR 0. LY EN 3% K DR LANCASTER UG E OP S CY 00 10 10 00 30 30 SO 32 LA Ac MB 00 -0 -2 .0 PE 49 RS ti AL 23 7- 2- 00 RS 87 ON ve TA 24 20 20 03 09 09 FA LA 30 0 AZ UR LY EN MG K CA UG [...] ai 31 09 09 FA la 4 AZ bl LY e DR UG AZ 64 10 10 00 6. 5 SO 32 No Ac IT 67 -1 -2 00 PE 54 t ti HR 90 6- 2- 0 RS 71 Av ve OM 96 20 20 ai YC 10 09 09 FA la IN 5 AZ bl LY e [address] MG UG TA BL ET ME 50 10 10 00 40 10 SO 32 No Ac TR 11 -1 -2 .0 PE 54 t ti ON 10 6- 2- 00 RS 70 Av ve ID 33 20 20 ai AZ 30 09 09 FA la OL 6 AZ bl E LY e [address] MG UG TA BL ET MU 63 10 10 00 40 10 SO 32 No Ac CI 82 -1 -2 .0 PE 54 t ti NE 40 6- 2- 00 RS 72 Av ve X 00 20 20 ai ER 83 09 09 FA la 4 AZ bl 60 LY [address] UG TA BL ET TI 60 10 10 00 60 30 SO 32 LA Ac ZA 50 -0 -2 .0 PE 49 RS ti NI 50 7- 2- 00 RS 88 ON ve DI 25 20 20 NE 10 09 09 FA LA 2 AZ UR HC LY EN L K 2 DR MG UG TA BL ET CT 00 08 10 02 6. 15 SO 31 No Ac OV 08 -1 -2 70 PE 97 t ti EN 51 1- 2- 0 RS 05 Av ve TI 13 20 20 ai L 20 09 09 FA la HF 1 AZ bl A LY e 90 DR MC UG G IN PEREZ LE R CT 68 09 10 00 15 4 SO 32 No Ac OM 38 -2 -0 .0 PE 35 t ti ET 20 4- 8- 00 RS 26 Av ve PEREZ 04 20 20 ai ZI 00 09 09 FA la NE 1 AZ bl LY e [address] UG MG TA BL ET 00 10 10 00 21 7 SO 32 No Ac 55 -0 -0 .0 PE 41 t ti 50 2- 8- 00 RS 85 Av ve 30 20 20 ai 13 09 09 FA la 8 AZ bl LY e DR UG CE 68 09 10 00 28 7 SO 32 No Ac PH 18 -2 -0 .0 PE 35 t ti AL 00 4- 8- 00 RS 38 Av ve EX 12 20 20 ai IN 20 09 09 FA la 2 AZ bl 50 LY e [address] UG CA PS UL E CT 64 06 10 02 30 30 SO 31 No Ac EV 76 -2 -0 .0 PE 66 t ti AC 40 6- 8- 00 RS 24 Av ve ID 04 20 20 ai 61 [address] 3 AZ bl LY e 30 DR MG UG CA PS UL E CT 00 08 09 01 6. 15 SO 31 No Ac OV 08 -1 -2 70 PE 97 t ti EN 51 1- 4- 0 RS 05 Av ve TI 13 20 20 ai L 20 09 09 FA la HF 1 AZ bl A LY e 90 DR CAMPBELL UG G IN PEREZ LE R 00 08 09 01 14 15 SO 31 No Ac 59 -1 -2 .6 PE 97 t ti 70 1- 4- 99 RS 04 Av ve 01 20 20 ai 31 09 09 FA la 4 AZ bl LY e DR UG TI 60 08 09 01 60 30 SO 32 LA Ac ZA 50 -1 -2 .0 PE 00 RS ti NI 50 4- 4- 00 RS 27 ON ve DI 25 20 20 NE 10 09 09 FA LA 2 AZ UR HC LY EN L K 2 MG UG TA BL ET 00 08 09 01 90 30 SO 32 LA Ac 59 -1 -2 .0 PE 00 RS ti 10 4- 4- 00 RS 28 ON ve 54 20 20 00 09 09 FA LA 5 AZ UR LY EN K DR NIKKY CT 68 08 09 00 18 5 SO 32 No Ac OM 38 -2 -1 .0 PE 07 t ti ET 20 4- 0- 00 RS 82 Av ve PEREZ 04 20 20 ai ZI 00 09 09 FA la NE 1 AZ bl LY e [address] SHER [...] 20 00 09 09 FA LA 5 AZ UR LY EN K DR UG CT 00 08 08 00 6. 15 SO 31 No Ac OV 08 -1 -2 70 PE 97 t ti EN 51 1- 7- 0 RS 05 Av ve TI 13 20 20 ai L 20 09 09 FA la HF 1 AZ bl A LY e 90 DR CAMPBELL UG G IN PEREZ LE R 00 08 08 00 14 15 SO 31 No Ac 59 -1 -2 .6 PE 97 t ti 70 - 7- 99 RS 04 Av ve 01 20 20 ai 31 09 09 FA la 4 AZ bl LY e DR UG 00 08 08 00 30 30 SO 32 LA Ac 00 -1 -2 .0 PE 00 RS ti 23 4- 7- 00 RS 26 ON ve 23 20 20 73 09 09 FA LA 0 AZ UR LY EN K DR UG TI 60 08 08 00 60 30 SO 32 LA Ac ZA 50 -1 -2 .0 PE 00 RS ti NI 50 4- 7- 00 RS 27 ON ve DI 25 20 20 NE 10 09 09 FA LA 2 AZ UR HC LY EN L K 2 DR MG UG TA BL ET CT 64 06 08 01 30 30 SO 31 No Ac EV 76 -2 -2 .0 PE 66 t ti AC 40 6- 7- 00 RS 24 Av ve ID 04 20 20 ai 61 [address] 3 AZ bl LY e 30 DR MG UG [...] AR la 0 MA bl CY e CT 00 07 07 00 6. 15 SO 31 No Ac OV 08 -2 -3 70 PE 81 t ti EN 51 0- 0- 0 RS 72 Av ve TI 13 20 20 ai L 20 09 09 FA la HF 1 AZ bl A LY e 90 DR MC UG G IN PEREZ LE R 00 07 07 00 14 15 SO 31 No Ac 59 -2 -3 .6 PE 81 t ti 70 0- 0- 99 RS 73 Av ve 01 20 20 ai 31 09 09 FA la 4 AZ bl LY e DR UG CT 00 04 07 03 30 30 SO 31 No Ac EM 04 -2 -3 .0 PE 16 t ti AR 61 0- 0- 00 RS 41 Av ve IN 10 20 20 ai 28 09 09 FA la 0. 1 AZ bl 62 LY [address] UG TA BL ET 00 06 07 00 12 30 SO 31 No Ac 60 -2 -1 0. PE 65 t ti 33 5- 6- 00 RS 94 Av ve 88 20 20 0 ai 23 09 09 FA la 2 AZ bl LY e DR UG VE 00 06 07 00 8. 15 SO 31 No Ac NT 17 -2 -0 00 PE 66 t ti OL 30 6- 2- 0 RS 25 Av ve IN 68 20 20 ai 22 09 09 FA la HF 4 AZ bl A LY e 90 [address] CAMPBELL UG G IN PEREZ LE R CT 68 06 07 00 20 5 SO 31 No Ac OM 38 -2 -0 .0 PE 65 t ti ET 20 5- 2- 00 RS 96 Av ve PEREZ 04 20 20 ai ZI 00 09 09 FA la NE 1 AZ bl LY e [address] NIKKY MG TA BL ET GE 00 03 07 01 60 30 SO 30 No Ac MF 09 -1 -0 .0 PE 84 t ti IB 30 6- 2- 00 RS 83 Av ve RO 67 20 20 ai ZI 00 09 09 FA la L 5 AZ bl 60 LY [address] UG TA BL ET AD 00 02 07 02 60 30 SO 30 No Ac VA 17 -0 -0 .0 PE 47 t ti IR 30 3- 2- 00 RS 47 Av ve 69 20 20 ai 25 60 09 09 FA la 0- 0 AZ bl 50 LY e DI SK UG US 00 02 07 02 14 15 SO 30 No Ac 59 -0 -0 .6 PE 47 t ti 70 3- 2- 99 RS 45 Av ve 01 20 20 ai 31 09 09 FA la 4 AZ bl LY e DR UG DI 00 06 07 00 10 2 SO 31 No Ac PH 37 -2 -0 .0 PE 65 t ti EN 80 5- 2- 00 RS 95 Av ve OX 41 20 20 ai YL 51 09 09 FA la AT 0 AZ bl E- LY e AT RO DR Deshaun UG 2. 5- 0. [address] 00 04 07 02 30 30 SO 31 No Ac EM 04 -2 -0 .0 PE 16 t ti AR 61 0- 2- 00 RS 41 Av ve IN 10 20 20 ai 28 09 09 FA la 0. 1 AZ bl 62 LY e [address] UG TA BL ET 00 05 07 01 36 30 YO 18 No Ac 18 -2 -0 0. UR 98 t ti 57 2- 2- 00 4 Av ve 32 20 20 0 PH ai 26 09 09 AR la 0 MA bl CY e CT 64 06 07 00 30 30 SO 31 No Ac EV 76 -2 -0 .0 PE 66 t ti AC 40 6- 2- 00 RS 24 Av ve ID 04 20 20 ai 61 [address] 3 AZ bl LY e 30 DR MG UG CA PS UL E AL 00 06 06 00 60 30 SO [address] 78 -0 -1 .0 PE 52 t ti AZ 11 5- 8- 00 RS 41 Av ve OL 07 20 20 ai AM 71 09 09 FA la 0 AZ bl 0. LY e [address] UG TA BL ET CT 00 04 06 01 30 30 SO 31 No Ac EM 04 -2 -0 .0 PE 16 t ti AR 61 0- 4- 00 RS 41 Av ve IN 10 20 20 ai 28 09 09 FA la 0. 1 AZ bl 62 LY e [address] UG TA BL ET CT 00 05 06 00 6. 15 SO 31 No Ac OV 08 -2 -0 70 PE 45 t ti EN 51 8- 4- 0 RS 24 Av ve TI 13 20 20 ai L 20 09 09 FA la HF 1 AZ bl A LY e 90 DR MC [...] ai 56 09 09 FA la 5 AZ bl LY e DR UG AL 00 05 05 00 2. 1 SO [address] 78 -1 -2 00 PE 37 t ti AZ 11 5- 1- 0 RS 03 Av ve OL 07 20 20 ai AM 71 09 09 FA la 0 AZ bl 0. LY e [address] UG TA BL ET 63 05 05 00 40 10 SO 31 No Ac 30 -0 -2 .0 PE 28 t ti 40 5- 1- 00 RS 63 Av ve 65 20 20 ai 70 09 09 FA la 5 AZ bl LY e DR UG CT 64 01 05 03 30 30 SO 30 No Ac EV 76 -1 -2 .0 PE 35 t ti AC 40 5- 1- 00 RS 42 Av ve ID 04 20 20 ai 61 [address] 3 AZ bl LY e 30 DR MG UG CA PS UL E 00 05 05 00 30 7 SO 31 No Ac 59 -0 -2 .0 PE 28 t ti 12 5- 1- 00 RS 64 Av ve 22 20 20 ai 80 09 09 FA la 5 AZ bl LY e DR UG FL 60 05 05 00 16 30 SO 31 No Ac UT 50 -0 -2 .0 PE 28 t ti IC 50 5- 1- 00 RS 60 Av ve 82 20 20 ai ON 90 09 09 FA la E [address] e OP [address] 50 UG MC G SP RA Y 00 05 05 00 60 15 SO 31 No Ac 60 -0 -2 .0 PE 32 t ti 33 8- 1- 00 RS 25 Av ve 88 20 20 ai 23 09 09 FA la 2 AZ bl LY e DR UG 00 05 05 00 30 30 SO 31 No Ac 00 -0 -2 .0 PE 28 t ti 60 5- 1- 00 RS 62 Av ve 11 20 20 ai 73 09 09 FA la 1 AZ bl LY e DR UG CT 00 04 05 00 30 30 SO 31 No Ac EM 04 -2 -0 .0 PE 16 t ti AR 61 0- 7- 00 RS 41 Av ve IN 10 20 20 ai 28 09 09 FA la 0. 1 AZ bl 62 LY e [address] UG TA BL ET 00 04 05 00 40 10 SO 31 No Ac 60 -2 -0 .0 PE 19 t ti 33 3- 7- 00 RS 17 Av ve 88 20 20 ai 23 09 09 FA la 2 AZ bl LY e DR UG 00 08 [...] 60 09 09 FA la IN 1 AZ bl E LY e HC L DR 10 UG MG TA B 68 03 04 00 25 7 SO 30 No Ac 46 -2 -0 .0 PE 95 t ti 20 6- 9- 00 RS 68 Av ve 14 20 20 ai 64 09 09 FA la 5 AZ bl LY e DR UG 00 03 04 00 30 30 SO 30 No Ac 40 -2 -0 .0 PE 95 t ti 62 6- 9- 00 RS 67 Av ve 09 20 20 ai 80 09 09 FA la 5 AZ bl LY e DR UG CT 64 01 04 02 30 30 SO 30 No Ac EV 76 -1 -0 .0 PE 35 t ti AC 40 5- 9- 00 RS 42 Av ve ID 04 20 20 ai 61 [address] 3 AZ bl LY e 30 DR MG UG CA PS UL E CT 00 02 04 02 6. 15 SO 30 No Ac OV 08 -0 -0 70 PE 47 t ti EN 51 3- 9- 0 RS 46 Av ve TI 13 20 20 ai L 20 09 09 FA la HF 1 AZ bl A LY e 90 DR CAMPBELL UG G IN PEREZ LE R AZ 64 03 03 00 6. 5 SO 30 No Ac IT 67 -1 -2 00 PE 82 t ti HR 90 3- 6- 0 RS 61 Av ve OM 96 20 20 ai YC 10 09 09 FA la IN 4 AZ bl LY e [address] MG UG TA BL ET GE 00 03 03 00 60 30 SO 30 No Ac MF 09 -1 -2 .0 PE 84 t ti IB 30 6- 6- 00 RS 83 Av ve RO 67 20 20 ai ZI 00 09 09 FA la L 5 AZ bl 60 LY [address] UG TA BL ET PE 00 03 03 00 90 30 SO 30 No Ac NT 09 -1 -2 .0 PE 82 t ti OX 35 3- 6- 00 RS 62 Av ve IF 11 20 20 ai YL 60 09 09 FA la LI 5 AZ bl NE LY e ER UG 40 [...] ai 31 09 09 FA la 4 AZ bl LY e DR UG AD 00 02 03 01 60 30 SO 30 No Ac VA 17 -0 -1 .0 PE 47 t ti IR 30 3- 2- 00 RS 47 Av ve 69 20 20 ai 25 60 09 09 FA la 0- 0 AZ bl [address] CHRISTY SHER US CT 00 02 03 01 6. 15 SO 30 No Ac OV 08 -0 -1 70 PE 47 t ti EN 51 3- 2- 0 RS 46 Av ve TI 13 20 20 ai L 20 09 09 FA la HF 1 AZ bl A LY e 90 DR GARCIA IN LE R CT 64 01 02 01 30 30 SO 30 No Ac EV 76 -1 -2 .0 PE 35 t ti AC 40 5- 6- 00 RS 42 Av ve ID 04 20 20 ai 61 [address] 3 AZ bl LY e 30 DR MG UG [...] NA 57 09 09 FA TA 0 AZ LI LY E E UG 00 02 02 00 51 13 SO 30 PEREZ Ac 09 -1 -2 .0 PE 61 RV ti 50 9- 6- 00 RS 28 EY ve 08 20 20 65 09 09 FA RODOLFO [address] [place] DI LY DR UG CT 00 02 02 00 30 30 SO 30 No Ac EM 04 -1 -2 .0 PE 61 t ti AR 61 9- 6- 00 RS 29 Av ve IN 10 20 20 ai 48 09 09 FA la 1. 1 AZ bl [address] NIKKY TA BL ET CI 55 02 02 00 10 10 SO [address] 11 -0 -1 .0 PE 50 t ti OF 10 5- 2- 00 RS 21 Av ve LO 12 20 20 ai XA 70 09 09 FA la CI 1 AZ bl N LY e HC L 50 UG 0 MG TA B AD 00 02 02 00 60 30 SO 30 No Ac VA 17 -0 -1 .0 PE 47 t ti IR 30 3- 2- 00 RS 47 Av ve 69 20 20 ai 25 60 09 09 FA la 0- 0 AZ bl [address] CHRISTY SHER US CT 00 02 02 00 6. 15 SO 30 No Ac OV 08 -0 -1 70 PE 47 t ti EN 51 3- 2- 0 RS 46 Av ve TI 13 20 20 ai L 20 09 09 FA la HF 1 AZ bl A LY e 90 DR MC UG G IN PEREZ LE R AZ 64 02 02 00 6. 5 SO 30 No Ac IT 67 -0 -1 00 PE 50 t ti HR 90 5- 2- 0 RS 22 Av ve OM 96 20 20 ai YC 10 09 09 FA la IN 5 AZ bl LY e [address] MG UG TA BL ET 00 02 02 00 21 6 SO 30 No Ac 55 -0 -1 .0 PE 49 t ti 50 5- 2- 00 RS 74 Av ve 30 20 20 ai 13 09 09 FA la 8 AZ bl LY e DR UG 00 02 02 00 14 15 SO 30 No Ac 59 -0 -1 .6 PE 47 t ti 70 3- 2- 99 RS 45 Av ve 01 20 20 ai 31 09 09 FA la 4 AZ bl LY e DR UG SE 31 12 01 01 8. 30 SO 30 No Ac RT 72 -1 -3 00 PE 11 t ti RA 20 5- 0- 0 RS 12 Av ve LI 21 20 20 ai NE 40 08 09 FA la 5 AZ bl HC LY e L 10 DR 0 UG MG TA BL ET 59 01 01 00 7. 20 SO 30 No Ac 31 -1 -3 29 PE 35 t ti 00 5- 0- 9 RS 45 Av ve 17 20 20 ai 78 09 09 FA la 0 AZ bl LY e DR UG CT 00 01 01 00 30 30 SO 27 No Ac EM 04 -1 -3 .0 PE 32 t ti AR 61 7- 0- 00 RS 20 Av ve IN 10 20 20 ai 49 08 09 FA la 1. 1 AZ bl [address] UG TA BL ET 00 01 01 00 30 30 SO 30 No Ac 30 -1 -3 .0 PE 35 t ti 03 5- 0- 00 RS 42 Av ve 04 20 20 ai 61 09 09 FA la 3 AZ bl LY e DR UG NA 68 12 01 01 60 30 SO [address] 46 -0 -3 .0 PE 01 t ti OX 20 4- 0- 00 RS 54 Av ve EN 19 20 20 ai 00 08 09 FA la 50 5 AZ bl [address] TA UG BL ET ME 00 01 01 00 30 10 SO 30 No Ac TH 14 -1 -3 .0 PE 35 t ti OC 31 5- 0- 00 RS 41 Av ve AR 29 20 20 ai BA 00 09 09 FA la MO 1 AZ bl L LY e [address] MG UG TA BL ET 00 01 01 00 12 30 SO 30 No Ac 60 -1 -3 0. PE 35 t ti 35 5- 0- 00 RS 43 Av ve 46 20 20 0 ai 83 09 09 FA la 2 AZ bl LY e DR UG 00 12 01 00 47 11 SO 30 No Ac 12 -3 -1 3. PE 21 t ti 10 0- 5- 00 RS 34 Av ve 63 20 20 0 ai 81 08 09 FA la 6 AZ bl LY e DR UG 63 12 01 00 60 30 SO 30 No Ac 82 -3 -1 .0 PE 21 t ti 40 0- 5- 00 RS 33 Av ve 00 20 20 ai 81 08 09 FA la 0 AZ bl LY e DR UG 00 08 [...] RAUL 61 08 09 FA IS 3 [place] R LY DR UG CL 00 12 01 00 40 20 SO 30 No Ac ON 60 -1 -0 .0 PE 11 t ti AZ 32 5- 1- 00 RS 11 Av ve EP 94 20 20 ai AM 83 08 09 FA la 2 AZ bl 0. LY e [address] UG TA BL ET SE 31 12 01 00 8. 30 SO 30 No Ac RT 72 -1 -0 00 PE 11 t ti RA 20 5- 1- 0 RS 12 Av ve LI 21 20 20 ai NE 40 08 09 FA la 5 AZ bl HC LY e L 10 DR 0 UG MG TA BL ET NA 68 12 12 00 60 30 SO [address] 46 -0 -1 .0 PE 01 NA ti OX 20 4- 8- 00 RS 54 LD ve EN 19 20 20 IN 00 08 08 FA I 50 5 AZ AN 0 LY A MG M TA UG BL ET CT 00 08 12 03 6. 15 SO 29 RI Ac OV 08 -2 -1 70 PE 14 NA ti EN 51 2- 8- 0 RS 36 LD ve TI 13 20 20 IN L 20 08 08 FA I HF 1 AZ AN A LY A 90 M MC UG G IN PEREZ LE R AZ 64 12 12 00 6. 5 SO 30 RI Ac IT 67 -0 -1 00 PE 01 NA ti HR 90 4- 8- 0 RS 53 LD ve OM 96 20 20 IN YC 10 08 08 FA I IN 4 AZ AN LY A [address] MG UG TA BL ET 00 08 12 03 14 15 SO 29 RI Ac 59 -2 -1 .6 PE 14 NA ti 70 2- 8- 99 RS 37 LD ve 01 20 20 IN 31 08 08 FA I 4 AZ AN LY A M DR UG CT 00 01 12 07 30 30 SO 27 RI Ac EM 04 -1 -1 .0 PE 32 NA ti AR 61 7- 8- 00 RS 21 LD ve IN 10 20 20 IN 49 08 08 FA I 1. 1 AZ AN [address] UG TA BL ET 52 11 12 00 1. 1 SO 29 PE Ac 26 -2 -0 00 PE 94 NA ti 80 6- 4- 0 RS 26 ve 52 20 20 RAUL 10 08 08 FA IS [address] UG AD 00 06 11 03 60 30 SO 28 RI Ac VA 17 -2 -2 .0 PE 68 NA ti IR 30 0- 0- 00 RS 68 LD ve 69 20 20 IN 25 60 08 08 FA I 0- 0 AZ AN [address] SK UG US ME 00 11 11 00 15 5 SO 29 RI Ac TH 14 -0 -2 .0 PE 75 NA ti OC 31 6- 0- 00 RS 90 LD ve AR 29 20 20 IN BA 00 08 08 FA I MO 1 AZ AN L LY A [address] MG UG TA BL ET 00 08 11 02 30 30 SO 29 PE Ac 30 -1 -2 .0 PE 04 NA ti 03 1- 0- 00 RS 83 ve 04 20 20 RAUL 61 08 08 FA IS [address] UG 00 08 11 02 14 15 SO 29 RI Ac 59 -2 -2 .6 PE 14 NA ti 70 2- 0- 99 RS 37 LD ve 01 20 20 IN 31 08 08 FA I 4 AZ AN LY A M DR UG CT 00 08 11 02 6. 15 SO 29 RI Ac OV 08 -2 -2 70 PE 14 NA ti EN 51 2- 0- 0 RS 36 LD ve TI 13 20 20 IN L 20 08 08 FA I HF 1 AZ AN A LY A [address] [...] 50 08 08 FA la E 1 AZ bl [address] UG TA BL ET MARKS 00 10 10 00 20 10 SO 29 RI Ac LF 60 -0 -2 .0 PE 52 NA ti AM 35 9- 3- 00 RS 93 LD ve ET 78 20 20 IN HO 12 08 08 FA I XA 8 AZ AN ZO LY A LE M -T DR TITUS UG DS TA BL ET CT 00 01 10 06 30 30 SO 27 RI Ac EM 04 -1 -2 .0 PE 32 NA ti AR 61 7- 3- 00 RS 21 LD ve IN 10 20 20 IN 49 08 08 FA I 1. 1 AZ AN [address] SHER TA BL ET AD 00 06 10 02 60 30 SO 28 RI Ac VA 17 -2 -0 .0 PE 68 NA ti IR 30 0- 9- 00 RS 68 LD ve 69 20 20 IN 25 60 08 08 FA I 0- 0 AZ AN [address] HARRISON UG US CT 10 09 10 00 20 5 SO 29 No Ac OM 70 -2 -0 .0 PE 39 t ti ET 20 2- 9- 00 RS 22 Av ve PEREZ 00 20 20 ai ZI 31 08 08 FA la NE 0 AZ bl LY e 25 DR VENCES UG TA BL ET 65 09 10 00 56 14 SO 29 No Ac 48 -2 -0 .0 PE 39 t ti 30 2- 9- 00 RS 23 Av ve 49 20 20 ai 51 08 08 FA la 4 AZ bl LY e UG 00 08 10 01 30 30 SO 29 No Ac 30 -1 -0 .0 PE 04 t ti 03 1- 9- 00 RS 83 Av ve 04 20 20 ai 61 08 08 FA la 3 AZ bl LY e DR UG TR 65 09 09 00 90 23 SO 29 No Ac AM 16 -1 -2 .0 PE 32 t ti AD 20 5- 6- 00 RS 91 Av ve OL 62 20 20 ai 71 08 08 FA la HC 1 AZ bl L LY e 50 DR VENCES UG TA BL ET CT 00 08 09 01 6. 15 SO 29 No Ac OV 08 -2 -2 70 PE 14 t ti EN 51 2- 6- 0 RS 36 Av ve TI 13 20 20 ai L 20 08 08 FA la HF 1 AZ bl A LY e 90 DR CAMPBELL UG G IN PEREZ LE R GE 00 04 09 03 60 30 SO 28 No Ac MF 09 -0 -2 .0 PE 10 t ti IB 30 8- 6- 00 RS 90 Av ve RO 67 20 20 ai ZI 00 08 08 FA la L 5 AZ bl 60 LY [address] UG TA BL ET 00 08 09 01 14 15 SO 29 No Ac 59 -2 -2 .6 PE 14 t ti 70 2- 6- 99 RS 37 Av ve 01 20 20 ai 31 08 08 FA la 4 AZ bl LY e DR UG TR 50 09 09 00 30 30 SO 29 No Ac AZ 11 -1 -2 .0 PE 32 t ti OD 10 5- 6- 00 RS 90 Av ve ON 43 20 20 ai E 30 08 08 FA la 50 3 AZ bl LY e MG DR TIFFANY UG BL ET 49 08 09 00 30 10 SO 29 No Ac 88 -2 -1 .0 PE 18 t ti 40 8- 1- 00 RS 87 Av ve 77 20 20 ai 80 08 08 FA la 5 AZ bl LY e DR UG CT 00 01 09 05 30 30 SO 27 No Ac EM 04 -1 -1 .0 PE 32 t ti AR 61 7- 1- 00 RS 21 Av ve IN 10 20 20 ai 49 08 08 FA la 1. 1 AZ bl [address] UG TA BL ET CT 00 08 08 00 6. 15 SO 29 No Ac OV 08 -2 -2 70 PE 14 t ti EN 51 2- 8- 0 RS 36 Av ve TI 13 20 20 ai L 20 08 08 FA la HF 1 AZ bl A LY e 90 DR MC UG G IN PEREZ LE R 00 08 08 00 36 30 YO 16 No Ac 18 -2 -2 0. UR 66 t ti 57 2- 8- 00 2 Av ve 32 20 20 0 PH ai 26 08 08 AR la 0 MA bl CY e CT 37 03 08 04 28 28 SO 28 No Ac IL 00 -2 -2 .0 PE 02 t ti OS 00 7- 8- 00 RS 87 Av ve EC 35 20 20 ai 90 08 08 FA la OT 7 AZ bl C LY e [address] UG MG TA BL ET 00 08 08 00 14 15 SO 29 No Ac 59 -2 -2 .6 PE 14 t ti 70 2- 8- 99 RS 37 Av ve 01 20 20 ai 31 08 08 FA la 4 AZ bl LY e DR UG 00 08 08 00 30 30 SO 29 No Ac 30 -1 -2 .0 PE 04 t ti 03 1- 8- 00 RS 83 Av ve 04 20 20 ai 61 08 08 FA la 3 AZ bl LY e DR UG 00 06 08 02 14 15 SO 28 No Ac 59 -0 -1 .6 PE 56 t ti 70 3- 4- 99 RS 61 Av ve 01 20 20 ai 31 08 08 FA la 4 AZ bl LY e DR UG CT 00 06 08 02 6. 15 SO 28 No Ac OV 08 -0 -1 70 PE 56 t ti EN 51 3- 4- 0 RS 62 Av ve TI 13 20 20 ai L 20 08 08 FA la HF 1 AZ bl A LY e 90 DR CAMPBELL UG G IN PEREZ LE R AD 00 06 08 01 60 30 SO 28 No Ac VA 17 -2 -1 .0 PE 68 t ti IR 30 0- 4- 00 RS 68 Av ve 69 20 20 ai 25 60 08 08 FA la 0- 0 AZ bl [address] HARRISON UG US GE 00 04 07 02 60 30 SO 28 No Ac MF 09 -0 -1 .0 PE 10 t ti IB 30 8- 7- 00 RS 90 Av ve RO 67 20 20 ai ZI 00 08 08 FA la L 5 AZ bl 60 LY e [address] UG TA BL ET CT 37 03 07 03 28 28 SO 28 No Ac IL 00 -2 -1 .0 PE 02 t ti OS 00 7- 7- 00 RS 87 Av ve EC 35 20 20 ai 90 08 08 FA la OT 7 AZ bl C LY e [address] UG MG TA BL ET MARKS 00 07 07 00 12 30 SO 28 No Ac CR 59 -1 -1 0. PE 83 t ti AL 10 7- RS 73 Av ve FA 78 20 20 0 ai TE 00 08 08 FA la 1 5 AZ bl LY e GM DR TA UG BL ET CT 00 01 07 04 30 30 SO 27 No Ac EM 04 -1 -1 .0 PE 32 t ti AR 61 7- 7- 00 RS 21 Av ve IN 10 20 20 ai 49 08 08 FA la 1. 1 AZ bl [address] UG TA BL ET PE 45 07 07 00 60 30 SO 28 No Ac RM 80 -1 -1 .0 PE 83 t ti ET 20 1- 7- 00 RS 74 Av ve HR 26 20 20 ai IN 93 08 08 FA la 7 AZ bl 5% LY e CR EA UG M CT 00 06 07 01 6. 15 SO 28 No Ac OV 08 -0 -0 70 PE 56 t ti EN 51 3- 3- 0 RS 62 Av ve TI 13 20 20 ai L 20 08 08 FA la HF 1 AZ bl A LY e 90 DR VOGEL G IN PEREZ LE R 00 06 07 00 21 6 SO 28 No Ac 55 -2 -0 .0 PE 68 t ti 50 0- 3- 00 RS 67 Av ve 30 20 20 ai 13 08 08 FA la 8 AZ bl LY e DR SHER 00 06 07 01 14 15 SO 28 No Ac 59 -0 -0 .6 PE 56 t ti 70 3- 3- 99 RS 61 Av ve 01 20 20 ai 31 08 08 FA la 4 AZ bl LY e DR SHER [place] 00 06 07 00 6. 5 SO 28 No Ac IT 78 -2 -0 00 PE 68 t ti HR 11 0- 3- 0 RS 66 Av ve OM 49 20 20 ai YC 66 08 08 FA la IN 8 AZ bl LY e [address] VENCES UG TA BL ET AD 00 06 07 00 60 30 SO 28 No Ac VA 17 -2 -0 .0 PE 68 t ti IR 30 0- 3- 00 RS 68 Av ve 69 20 20 ai 25 60 08 08 FA la 0- 0 AZ bl [address] CHRISTY SHER US CT 37 03 06 02 28 28 SO 28 No Ac IL 00 -2 -1 .0 PE 02 t ti OS 00 7- 2- 00 RS 87 Av ve EC 35 20 20 ai 90 08 08 FA la OT 7 AZ bl C LY e [address] SHER MG TA BL ET 00 06 06 00 14 15 SO 28 No Ac 59 -0 -1 .6 PE 56 t ti 70 3- 2- 99 RS 61 Av ve 01 20 20 ai 31 08 08 FA la 4 AZ bl LY e DR SHER CT 00 06 06 00 6. 15 SO 28 No Ac OV 08 -0 -1 70 PE 56 t ti EN 51 3- 2- 0 RS 62 Av ve TI 13 20 20 ai L 20 08 08 FA la HF 1 AZ bl A LY e 90 DR VOGEL G IN PEREZ LE R 00 05 06 00 30 30 SO 28 No Ac 00 -2 -0 .0 PE 49 t ti 60 3- 5- 00 RS 01 Av ve 11 20 20 ai 73 08 08 FA la 1 AZ bl LY e DR SHER 64 05 06 00 15 7 SO 28 No Ac 45 -2 -0 .0 PE 50 t ti 50 7- 5- 00 RS 75 Av ve 99 20 20 ai 39 08 08 FA la 4 AZ bl LY e DR UG LO 24 05 06 00 30 30 SO 28 No Ac RA 38 -2 -0 .0 PE 49 t ti TA 50 3- 5- 00 RS 00 Av ve DI 47 20 20 ai NE 17 08 08 FA la 8 AZ bl [address] UG TA BL ET CT 00 01 06 03 30 30 SO 27 No Ac EM 04 -1 -0 .0 PE 32 t ti AR 61 7- 5- 00 RS 21 Av ve IN 10 20 20 ai 49 08 08 FA la 1. 1 AZ bl [address] UG TA BL ET BE 68 05 06 00 28 7 SO 28 No Ac NZ 38 -2 -0 .0 PE 49 t ti ON 20 3- 5- 00 RS 02 Av ve AT 24 20 20 ai AT 80 08 08 FA la E 1 AZ bl 20 LY [address] UG CA PS UL E 00 05 06 00 6. 5 SO 28 No Ac 37 -2 -0 00 PE 48 t ti 81 3- 5- 0 RS 98 Av ve 53 20 20 ai 38 08 08 FA la 3 AZ bl LY e DR UG GE 00 04 06 01 60 30 SO 28 No Ac MF 09 -0 -0 .0 PE 10 t ti IB 30 8- 5- 00 RS 90 Av ve RO 67 20 20 ai ZI 00 08 08 FA la L 5 AZ bl 60 LY [address] UG TA BL ET 00 05 05 00 14 15 SO 28 No Ac 59 -1 -2 .6 PE 38 t ti 70 2- 2- 99 RS 43 Av ve 01 20 20 ai 31 08 08 FA la 4 AZ bl LY e DR UG CT 37 03 05 01 28 28 SO 28 No Ac IL 00 -2 -2 .0 PE 02 t ti OS 00 7- 2- 00 RS 87 Av ve EC 45 20 20 ai 50 08 08 FA la OT 3 AZ bl C LY e [address] UG MG TA BL ET 58 04 05 01 30 30 SO 28 No Ac 17 -1 -2 .0 PE 12 t ti 70 0- 2- 00 RS 96 Av ve 30 20 20 ai 90 08 08 FA la 4 AZ bl LY e DR UG CT 00 05 05 00 6. 15 SO 28 No Ac OV 08 -1 -2 70 PE 38 t ti EN 51 2- 2- 0 RS 42 Av ve TI 13 20 20 ai L 20 08 08 FA la HF 1 AZ bl A LY e 90 DR MC UG G IN PEREZ LE R 58 04 05 00 10 10 SO 28 No Ac 17 -2 -0 .0 PE 22 t ti 70 2- 8- 00 RS 93 Av ve 30 20 20 ai 10 08 08 FA la 4 AZ bl LY e DR UG 00 03 05 01 14 15 SO 28 No Ac 59 -2 -0 .6 PE 02 t ti 70 7- 8- 99 RS 61 Av ve 01 20 20 ai 31 08 08 FA la 4 AZ bl LY e DR UG CT 00 03 05 01 6. 15 SO 28 No Ac OV 08 -2 -0 70 PE 02 t ti EN 51 7- 8- 0 RS 62 Av ve TI 13 20 20 ai L 20 08 08 FA la HF 1 AZ bl A LY e 90 DR CAMPBELL UG G IN PEREZ LE R TR 65 04 05 00 40 10 SO 28 No Ac AM 16 -2 -0 .0 PE 22 t ti AD 20 2- 8- 00 RS 94 Av ve OL 62 20 20 ai 75 08 08 FA la HC 0 AZ bl L LY e 50 DR MG UG TA BL ET AZ 00 04 04 00 6. 5 SO 28 No Ac IT 78 -0 -2 00 PE 10 t ti HR 11 8- 4- 0 RS 91 Av ve OM 49 20 20 ai YC 66 08 08 FA la IN 8 AZ bl LY e [address] MG UG TA BL ET 63 04 04 00 40 5 SO 28 No Ac 82 -0 -2 .0 PE 10 t ti 40 8- 4- 00 RS 92 Av ve 00 20 20 ai 81 08 08 FA la 0 AZ bl LY e DR UG 58 04 04 00 30 30 SO 28 No Ac 17 -1 -2 .0 PE 12 t ti 70 0- 4- 00 RS 96 Av ve 30 20 20 ai 90 08 08 FA la 4 AZ bl LY e DR UG CT 00 01 04 02 30 30 SO 27 No Ac EM 04 -1 -2 .0 PE 32 t ti AR 61 7- 4- 00 RS 21 Av ve IN 10 20 20 ai 49 08 08 FA la 1. 1 AZ bl [address] UG TA BL ET GE 00 04 04 00 60 30 SO 28 No Ac MF 09 -0 -2 .0 PE 10 t ti IB 30 8- 4- 00 RS 90 Av ve RO 67 20 20 ai ZI 00 08 08 FA la L 5 AZ bl 60 LY [address] UG TA BL ET TR 65 03 04 00 30 7 SO 27 No Ac AM 16 -2 -1 .0 PE 95 t ti AD 20 0- 7- 00 RS 32 Av ve OL 62 20 20 ai 75 08 08 FA la HC 0 AZ bl L LY e 50 DR MG UG TA BL ET 00 03 04 00 30 30 SO 27 No Ac 09 -2 -1 .0 PE 95 t ti 35 0- 7- 00 RS 33 Av ve 50 20 20 ai 20 08 08 FA la 1 [place] bl LY e DR UG 00 01 04 02 14 15 SO 27 No Ac 59 -3 -1 .6 PE 44 t ti 70 1- 7- 99 RS 57 Av ve 01 20 20 ai 31 08 08 FA la 4 [place] bl LY e DR UG CT 00 01 04 02 6. 15 SO 27 No Ac OV 08 -3 -1 70 PE 44 t ti EN 51 1- 7- 0 RS 56 Av ve TI 13 20 20 ai L 20 08 08 FA la HF 1 [place] bl A LY e 90 DR CAMPBELL UG G IN PEREZ LE R CT 37 03 04 00 28 28 SO 28 No Ac IL 00 -2 -1 .0 PE 02 t ti OS 00 7- 0- 00 RS 87 Av ve EC 45 20 20 ai 50 08 08 FA la OT 3 AZ bl C LY e [address] UG MG TA BL ET CT 00 03 04 00 6. 15 SO 28 No Ac OV 08 -2 -1 70 PE 02 t ti EN 51 7- 0- 0 RS 62 Av ve TI 13 20 20 ai L 20 08 08 FA la HF 1 AZ bl A LY e 90 DR CAMPBELL UG G IN PEREZ LE R 00 03 04 00 14 15 SO 28 No Ac 59 -2 -1 .6 PE 02 t ti 70 7- 0- 99 RS 61 Av ve 01 20 20 ai 31 08 08 FA la 4 [place] bl LY e DR UG CT 37 01 03 01 28 28 SO 27 No Ac IL 00 -1 -2 .0 PE 26 t ti OS 00 4- 6- 00 RS 50 Av ve EC 45 20 20 ai 50 08 08 FA la OT 3 AZ bl C LY e [address] UG MG TA BL ET 00 01 03 01 14 15 SO 27 No Ac 59 -3 -2 .6 PE 44 t ti 70 1- 6- 99 RS 57 Av ve 01 20 20 ai 31 08 08 FA la 4 [place] bl LY e DR UG 00 01 03 00 14 15 SO 27 No Ac 59 -3 -2 .6 PE 44 t ti 70 1- 6- 99 RS 57 Av ve 01 20 20 ai 31 08 08 FA la 4 [place] bl LY e DR UG CT 00 01 03 01 30 30 SO 27 No Ac EM 04 -1 -2 .0 PE 32 t ti AR 61 7- 6- 00 RS 21 Av ve IN 10 20 20 ai 49 08 08 FA la 1. 1 [place] bl [address] UG TA BL ET CT 00 01 03 01 6. 15 SO 27 No Ac OV 08 -3 -2 70 PE 44 t ti EN 51 1- 6- 0 RS 56 Av ve TI 13 20 20 ai L 20 08 08 FA la HF 1 AZ bl A LY e 90 DR MC UG G IN PEREZ LE R AZ 00 01 03 00 6. 5 SO 27 No Ac IT 78 -1 -2 00 PE 32 t ti HR 11 7- 5- 0 RS 19 Av ve OM 49 20 20 ai YC 66 08 08 FA la IN 8 AZ bl LY e [address] MG UG TA BL ET CT 00 01 03 00 30 30 SO 27 No Ac EM 04 -1 -2 .0 PE 32 t ti AR 61 7- 5- 00 RS 21 Av ve IN 10 20 20 ai 49 08 08 FA la 1. 1 [place] bl [address] UG TA BL ET CT 68 12 03 01 14 14 SO 27 No Ac OM 38 -1 -2 .0 PE 05 t ti ET 20 8- 5- 00 RS 16 Av ve PEREZ 04 20 20 ai ZI 11 07 08 FA la NE 0 AZ bl LY e 25 DR MG UG TA BL ET CT 37 01 03 00 28 28 SO 27 No Ac IL 00 -1 -2 .0 PE 26 t ti OS 00 4- 5- 00 RS 50 Av ve EC 45 20 20 ai 50 08 08 FA la OT 3 AZ bl C LY e [address] UG MG TA BL ET CT 00 10 03 03 6. 15 SO 26 No Ac OV 08 -2 -2 70 PE 59 t ti EN 51 9- 4- 0 RS 33 Av ve TI 13 20 20 ai L 20 07 08 FA la HF 1 AZ bl A LY e 90 DR MC UG G IN PEREZ LE R 00 09 03 05 14 15 SO 26 No Ac 59 -1 -2 .6 PE 21 t ti 70 7- 4- 99 RS 28 Av ve 01 20 20 ai 31 07 08 FA la 4 [place] bl LY e DR UG CT 00 11 03 01 30 30 SO 26 No Ac EM 04 -0 -2 .0 PE 67 t ti AR 61 7- 4- 00 RS 61 Av ve IN 10 20 20 ai 29 07 08 FA la 0. 1 [place] bl [address] LY [address] NIKKY ALLEN BL ET Procedures Procedure DOS Code Location Performer Comment NJX 77665 [facility] DX[facility]THER [facility] SBST INC INC INTRLMNR LMBR/SAC W/IMG GDN LIPID 83790 [facility] PANEL 7 [facility] INC INC COLLECTIO 99992 [facility] N VENOUS 7 [facility] [place] [address] [facility] FREE 7 [facility] THYROXINE INC INC GENERAL 37108 [facility] HEALTH 7 [facility] PANEL INC INC GENERAL 68041 ABBIESTEVE LEIV[facility] HEALTH 7 [facility] [place] [address] [facility] FOLIC 7 [facility] ACID INC INC SERUM CYANOCOBA 58606 [facility] LEIVA KAILEY 7 [facility] VITAMIN INC INC B-12 RADEX 72895 [facility] FOOT 7 EMILY COMPLETE EMERGENCY MINIMUM 3 PHYS VIEWS DRUG TEST 89023 [facility] PRSMV 7 [facility] QUAL DIR INC INC OPTICAL OBS PER DAY DRUG TEST G0480 [facility] DEFINITV [address] ID INC INC METH P DAY 1-7 DRUG CL COMPREHEN 24580 [facility] SIVE 7 [facility] MET[facility]OL[facility] PANEL BLOOD 08270 [facility] COUNT 7 [facility] COMPLETE [facility] AUTO&AUTO DIFRNTL WBC LACTATE 96295 [facility] DEHYDROGE 7 [facility] NASE [facility] RADIOLOGI 70253 [facility] C EXAM 6 [facility] KNEE INC INC COMPLETE 4/MORE VIEWS DUP-SCAN 29667 [facility] XTR VEINS 6 [facility] INC INC UNILATERA L/LIMITED STUDY DRUG TST G0477 [facility] PRESUMP;C 6 [facility] PBL BEING INC INC READ DC OPT OBV ONLY DRUG TEST G0481 [facility] DEFINITV [address] ID INC INC METH P DAY 8-14 DRUG CL RADIOLOGI 22146 [facility] C EXAM 6 EIDER GIOVANNA CHEST 2 RADIOLOGY VIEWS ASSOCIAT FRONTAL&L ATERAL NEUROPLAS 62878 [facility] [place], TY 6 [facility] &/TRANSPO MEDICAL S MEDIAN G NRV CARPAL TUNNE TENDON 86459 [facility], SHEATH 6 [facility] INCISION MEDICAL G DRUG TST G0477 [facility] PRESUMP;C 6 [facility] PBL BEING INC INC READ DC OPT OBV ONLY ECG 30891 [facility] ROUTINE [address] [place] [address] W/LEAST 12 LDS TRCG ONLY W/O I&R BLOOD 79192 [facility] COUNT [address] [place] [address] AUTO&AUTO DIFRNTL WBC RADIOLOGI 10662 [facility] C EXAM 6 [facility] CHEST 2 [facility] VIEWS FRONTAL&L ATERAL COLLECTIO 48687 [facility] N VENOUS [address] [place] [address] VENIPUNCT URE COMPREHEN 00715 [facility] SIVE [address] [place] [address] PANEL TB CELL 91535 [facility] 6 Y Y [facility] EXPRESS RESPNSE GAMMA INTERFERO N COLLECTIO 50402 [facility] N VENOUS [address] [place] [address] VENIPUNCT URE NEEDLE 98494 [facility] EMG EA 6 ANALY EXTREMTY [facility] W/PARASPI PLLC NL AREA COMPLETE NERVE 11830 [facility] CONDUCTIO 6 ANALY N STUDIES [facility] 9-10 PLLC STUDIES COMPREHEN 04148 [facility] SIVE 6 [facility] PANEL BLOOD 35931 [facility] COUNT 6 [facility] COMPLETE [facility] AUTO&AUTO DIFRNTL WBC LACTATE 21111 [facility] DEHYDROGE 6 [facility] NASE [facility] WRIST L3908 [facility] 6 BRACING, BRACING, ORTHOSIS INC INC EXT CONTROL COCK-UP PREFAB RADIOLOGI 33114 [facility] EXAM 6 SABA CHEST 2 RADIOLOGY VIEWS [...] MEDICAL NEBULIZR EQUIPME EQUIPME NON-DISPB L COLLECTIO 18055 [facility] N VENOUS 6 Y Y BLOOD [facility] VENIPUNCT URE RADEX 25742 [facility] HAND 2 6 Y Y VIEWS [facility] RADEX 08621 [place] WRIST 2 6 MEDICAL NARESH VIEWS SERV FOUNDATIO N COMPREHEN 67771 [facility] SIVE 6 Y [facility] PANEL BLOOD 12926 [facility] COUNT 6 Y Y COMPLETE [facility] AUTO&AUTO DIFRNTL WBC RADEX 02960 [facility] SHOULDER 6 Y Y [facility]PLETE [facility] MINIMUM 2 VIEWS SEDIMENTA 72866 [facility] 6 Y Y RBC [facility] AUTOMATED DRUG TST G0477 [facility] LEIV[facility] PRESUMP;C 6 [facility] PBL BEING INC INC READ DC OPT OBV ONLY 25 57598 [facility] HYDROXY 6 [facility] INCLUDES [facility]INGS HOLDINGS FRACTIONS IF PERFORMED COMPREHEN 37352 [facility] SIVE 6 [facility] MET[facility] PANEL BLOOD 02570 [facility] COUNT 6 [facility] COMPLETE [facility] AUTO&AUTO DIFRNTL WBC LACTATE 44097 [facility] DEHYDROGE 6 [facility] 14017 [facility]GE 6 EMILY LEE DAY PHYSICIAN AFNNYALNABILA MANAGEMEN SERVI MAR T > [address] [facility] 6 EMILY LEE CARE/DAY PHYSICIAN DECALVO 30 SERVI MAR MINUTES DRUG TST G0477 [facility] PRESUMP;C 6 [facility] PBL BEING INC INC READ DC OPT OBV ONLY DRUG TST G0477 [facility] PRESUMP;C 6 [facility] PBL BEING INC INC READ DC OPT OBV ONLY RADIOLOGI 80555 [facility] C EXAM 6 [place] CHEST 2 RADIOLOGY VIEWS ASSOCIAT FRONTAL&L ATERAL DRUG 64441 AB[facility]E LEIVA SCREENING 6 [facility] INC INC BENZODIAZ EPINES 1-12 DRUG TST G0477 [facility] LEIVA PRESUMP;C 6 [facility] PBL BEING INC INC READ DC OPT OBV ONLY 3D 91704 ARLENE RUSHING RENDERING 6 REGIONAL GLE W/INTERP MEDICAL & HORACIO POSTPROCE SS SUPERVISI ON CT THORAX 36750 ARLENE MILLERMACK 6 REGIONAL GLE W/CONTRAS MEDICAL T HORACIO MATERIAL 25 62677 LAB [facility] HYDROXY 6 [facility] INCLUDES [facility] HOLDINGS FRACTIONS IF PERFORMED COMPREHEN 63098 [facility] SIVE 6 [facility] MET[facility]OL[facility] PANEL BLOOD 18684 [facility] COUNT 6 [facility] COMPLETE [facility] AUTO&AUTO DIFRNTL WBC LACTATE 07163 [facility] DEHYDROGE 6 [facility] NASE [facility] 3D 93135 [place] [facility] 6 MEDICAL W/INTERP IMAGING & ASS POSTPROCE SS SUPERVISI ON MRI 77514 [place] [facility] SPINAL 6 MEDICAL CANAL IMAGING LUMBAR ASS W/O CONTRAST MATERIAL ECG 61586 [facility] ROUTINE 6 EMILY ECG EMERGENCY W/LEAST PHYS 12 LDS I&R ONLY DRUG TST G0477 [facility] LE[facility] PRESUMP;C 6 [facility] PBL BEING INC INC READ DC OPT OBV ONLY ECG 25092 [facility] ROUTINE 5 [facility] ECG INC INC W/LEAST 12 LDS TRCG ONLY W/O I&R ECHO 72168 [facility] LERMA GRE TTHRC R-T 5 MEDICAL 2D SERV W/WOM-MOD FOUNDATIO E COMPL N SPEC&COLR D INJECTION J2405 [facility] 5 [facility] ONDANSETR INC INC ON HCL PER 1 MG LOCM Q9967 ABBIE ABBIE [phone] 5 [facility] MG/ML INC INC IODINE CONCENTRA TION PER ML INJECTION J1644 ABBIE LEIVA HEPARIN 5 [facility] SODIUM INC INC PER 1000 UNITS PROTHROMB 03036 AB[facility]E LEIVA IN TIME 5 [facility] INC INC BLOOD 73513 [facility] COUNT 5 [facility] COMPLETE INC INC AUTO&AUTO DIFRNTL WBC CATHETER C1725 ABBIE LEIVA TRANSLUMI 5 [facility] NAL INC INC ANGIOPLAS TY NON-LASER GUIDE C1769 ABBIE LEIVA WIRE 5 [facility] INC INC BASIC 72573 ABBIE LEIVA METABOLIC 5 [facility] PANEL INC INC CALCIUM TOTAL THROMBOPL 68807 ABBIE LEIVA ASTIN 5 [facility] TIME INC INC PARTIAL PLASMA/WH OLE BLOOD CATH PLMT 72921 ABBIE LEIVA L HRT & 5 [facility] ARTS INC INC W/NJX & ANGIO IMG S&I RADEX 24996 [facility] 5 MEDICAL JOELLE COMPLETE IMAGING MINIMUM 2 ASS VIEWS RADIOLOGI 16077 [facility] C EXAM 5 EIDER GIOVANNA CHEST 2 RADIOLOGY VIEWS ASSOCIAT FRONTAL&L ATERAL BLOOD 50732 [facility] COUNT 5 [facility] COMPLETE [facility] AUTO&AUTO DIFRNTL WBC LACTATE 06624 [facility] DEHYDROGE 5 [facility] NASE [facility] 25 94500 LAB [facility] LAB [facility] HYDROXY 5 [facility] INCLUDES [facility]INGS HOLDINGS FRACTIONS IF PERFORMED COMPREHEN 41059 LAB [facility]ERI SIVE 5 [facility] METABOLIC [facility] PANEL RADEX 98742 [facility] COLON 5 W/SPEC HI RADIOLOGY RADIOLOGY DNS ASSOCIAT ASSOCIAT BARIUM W/WO GLUCAGON INJECTION J2250 ARLENE JACOBS 5 CO CO [facility] HCL PER 1 MG EGD 53263 ARLENE YORKA TRANSORAL 5 CO HOSP LIAM BIOPSY SINGLE/MU LTIPLE RINGERS J7120 ARLENE JACOBS LACTATE 5 CO CO INFUSION [facility] UP TO 1000 CC COLONOSCO 77081 ARLENE DIAZ PY 5 CO HOSP LIAM W/BIOPSY SINGLE/[place] [address] ARLENE JACOBS SURG 5 CO CO PATHOLOGY [facility] GROSS&AIYAAN ROSCOPIC EXAM INJECTION J2405 ARLENE JACOBS 5 CO CO [facility] ON HCL PER 1 MG CUL BACT 99888 ARLENE JACOBS AEROBIC 5 CO CO [facility] METHS DEFINITIV E EA ISOL INJECTION J3010 ARLENE JACOBS FENTANYL 5 CO CO CITRATE [facility] 0.1 MG ANES 61114 ARLENE MEDRANO [facility] [address] [place] [address] PROXIMAL TO DUODENUM RADIOLOGI 97453 [facility] C EXAM 5 EMILY CHEST 2 EMERGENCY VIEWS PHYS FRONTAL&L ATERAL ADMN SET A7005 YOUR YOUR W/SM VOL 5 PHARMACY PHARMACY [facility] NEBULIZR NON-DISPB L THERAPEUT 33519 [facility] 5 PHYSICIAN AIYANA PROPHYLAC S GROUP TIC/DX INJECTION SUBQ/IM RADIOLOGI 37267 [facility] C EXAM 5 EMILY JAM CHEST 2 EMERGENCY VIEWS PHYS FRONTAL&L ATERAL ECG 41415 [facility] ROUTINE 5 EMILY JAM ECG EMERGENCY W/LEAST PHYS 12 LDS I&R ONLY INJECTION J1040 [facility] 5 PHYSICIAN AIYANA METHYLPRE S GROUP DNISOLONE ACETATE 80 MG INJECTION J0696 [facility] 5 PHYSICIAN AIYANA CEFTRIAXO S GROUP NE SODIUM [place] [address] [place] [address] ARLENE JACOBS TROPONIN 5 CO CO [facility] YVETTE BLOOD 63437 ARLENE JACOBS COUNT 5 CO CO [facility] AUTO&AUTO DIFRNTL WBC URNLS DIP 32669 ARLENE JACOBS 5 CO CO STICK/TAB HOSPITAL HOSPITAL LET REAGENT AUTO MICROSCOP Y RADIOLOGI 23235 ARLENE JACOBS C EXAM 5 CO CO CHEST 2 HOSPITAL HOSPITAL VIEWS FRONTAL&L ATERAL COLLECTIO 51867 ARLENE JACOBS N VENOUS 5 CO [facility] VENIPUNCT URE CREATINE 33096 ARLENE JACOBS KINASE MB 5 CO CO [facility] HOSPITAL ONLY COMPREHEN 38764 ARLENE JACOBS SIVE 5 CO TX [facility]IC [facility] PANEL CREATINE 44175 ARLENE JACOBS KINASE 5 CO CO TOTAL [facility] THER 64518 ARLENE JACOBS PROPH/DX 5 CO CO NJX IV [facility]PITAL PUSH SINGLE/1S T SBST/DRUG ECG 32181 ARLENE JACOBS ROUTINE 5 CO [facility] W/LEAST 12 LDS TRCG ONLY W/O I&R UNCLASSIF J3490 ARLENE JACOBS IED DRUGS 5 CO [facility] ECG 46830 [facility] ROUTINE 5 EMILY JAM ECG EMERGENCY W/LEAST PHYS 12 LDS I&R ONLY RADIOLOGI 71730 [facility] C 5 EMILY JAM EXAMINATI EMERGENCY ON CHEST PHYS [place]ING[place]IEW FRONTAL BLOOD 20787 ARLENE JACOBS COUNT 5 CO [facility] AUTO&AUTO DIFRNTL WBC RADIOLOGI 65318 ARLENE JACOBS C EXAM 5 CO TX CHEST 2 [facility] VIEWS FRONTAL&L ATERAL SEDIMENTA 66569 ARLENE JACOBS TION RATE 5 CO CO RBC [facility] NON-AUTOM ATED COMPREHEN 85623 ARLENE JACOBS SIVE 5 CO CO [facility]PITAL PANEL RADEX 53059 [place] [facility] WRIST 2 5 MEDICAL Y JUS VIEWS SERV FOUNDATIO N RADEX 45396 [place] [facility] SPINE 5 MEDICAL Y JUS LUMBOSACR SERV AL 2/3 FOUNDATIO VIEWS N RADIOLOGI 70978 [place] [facility] C 5 MEDICAL Y JUS EXAMINATI SERV ON KNEE FOUNDATIO 1/2 VIEWS N RADEX 71400 [place] EDNAGOMER HAND 2 5 MEDICAL Y JUS VIEWS SERV FOUNDATIO N RADIOLOGI 28502 [facility] C EXAM 5 MEDICAL AYA MAR CHEST 2 SERV VIEWS FOUNDATIO FRONTAL&L N ATERAL BLOOD 84385 [facility] COUNT 4 [facility] COMPLETE [facility] AUTO&AUTO DIFRNTL WBC BASIC 75352 LAB [facility] LAB SHERI METABOLIC 4 [facility] PANEL [facility] CALCIUM TOTAL FLUORODEO A9552 ALMAZ KOO XYGLUCOSE 4 Y MEDICAL [facility] F-18 FDG CLINIC DX UP TO 45 MCI PET 96879 [facility] ARUNAAN IMAGING 4 Y MED[address] [place] [address] JACOBS СЕРГЕЙ ABDOMEN & 4 REGIONAL GLE PELVIS MEDICAL W/O HORACIO CONTRAST MATERIAL CT THORAX 40662 JACOBS СЕРГЕЙ W/O 4 REGIONAL GLE CONTRAST MEDICAL MATERIAL HORACIO RADEX 73779 ARLENE FRANKSMING SPINE 4 CO CO [facility] AL MINIMUM 4 VIEWS 25 55043 LAB [facility] LAB SHERI HYDROXY 4 [facility] INCLUDES [facility]INGS FRACTIONS IF PERFORMED COMPREHEN 81564 LAB [facility] LAB SHERI SIVE 4 [facility] METABOLIC [facility] PANEL BLOOD 50845 [facility] COUNT 4 [facility] COMPLETE [facility] AUTO&AUTO DIFRNTL WBC IMMUNOASS 43657 [facility] AY TUMOR 4 [facility] ANTIGEN [facility] HOLDINGS QUANTITAT YVETTE CA 15-3 LACTATE 45473 LAB SH[facility] LAB SHERI DEHYDROGE 4 [facility] NASE [facility] LIPID 70435 [facility] PANEL 4 DIAGNOSTI DIAGNOSTI [place] [address] [facility] FREE 4 DIAGNOSTI DIAGNOSTI THYROXINE [facility] GENERAL 06808 [facility] 4 DIAGNOSTI DIAGNOSTI PANEL [facility] ADMN SET A7005 YOUR YOUR W/SM VOL 4 PHARMACY [facility] NEBULIZR NON-DISPB L DRUG SCR G0434 GIOVANNY HAM GIOVANNY HAM NOT 4 CHROMATOG RAPHIC; ANY NUMBER PT ENC DRUG SCR G0434 GIOVANNY HAM GIOVANNY HAM NOT 4 CHROMATOG RAPHIC; ANY NUMBER PT ENC PRESSURIZ 24469 ARLENE JACOBS ED/NONPRE 4 CO CO SSURIZED [facility] INHALATIO N TREATMENT INJECTION J0744 ARLENE JACOBS 4 CO CO CIPROFLOX [facility] ACIN INTRAVENO US INFUS 200 MG INJECTION J2250 ARLENE JACOBS 4 CO CO MIDAZOLAM [facility] HCL PER 1 MG INJECTION J0330 ARLENE JACOBS 4 CO CO SUCCINYLC [facility] HOLINE CHLORIDE UP TO 20 MG INJECTION J2550 ARLENE JACOBS 4 CO [facility] 50 MG INJECTION J2405 ARLENE JACOBS 4 [facility] MG INJECTION J1170 ARLENE JACOBS 4 CO CO HYDROMOGARDNER SANITARIUM BARBI UP TO 4 MG RINGERS J7120 ARLENE JACOBS LACTATE 4 CO CO [facility] UP TO 1000 CC INJECTION J1100 ARLENE JACOBS 4 CO CO DEXAMETHO [facility] SONE SODIUM PHOSPHATE 1 MG ANES LWR 53893 ARLENE ANDRÉS ALFONZO ABD 4 [facility] L HERNIA REPAIR LAPS RPR 17159 ARLENE JACOBS INCISIONA 4 CO CO L HERNIA [facility] NCRC8/STR ANGULATED INFUSION J7050 ARLENE JACOBS NORMAL 4 CO CO SALINE [facility] SOLUTION 250 CC INJECTION J3010 ARLENE JACOBS FENTANYL 4 CO CO CITRATE [facility] 0.1 MG INJECTION J2710 ARLENE JACOBS 4 CO CO NEOSTIGMI [facility] NE METHYLSUL FATE UP TO 0.5 MG ECG 93569 ARLENE JACOBS ROUTINE 4 CO CO ECG HOSPITAL HOSPITAL W/LEAST 12 LDS TRCG ONLY W/O I&R RADIOLOGI 35252 ARLENE JACOBS C EXAM 4 CO CO CHEST 2 [facility] VIEWS FRONTAL&L ATERAL BLOOD 40468 ARLENE JACOBS COUNT 4 CO CO COMPLETE [facility] AUTO&AUTO DIFRNTL WBC URNLS DIP 27859 ARLENE JACOBS 4 CO CO STICK/TAB HOSPITAL HOSPITAL LET REAGENT AUTO MICROSCOP Y BASIC 70500 [facility] METABOLIC 4 CO [facility] CALCIUM TOTAL URINLS 63058 ARIANA DIAZ- DIP 4 [facility] [place] STICK/TAB LET REAGNT NON-AUTO MICRSCPY THERAPEUT 38721 ARIANA ARIANA IC 4 CLINIC CLINIC PROPHYLAC TIC/DX INJECTION SUBQ/IM THERAPEUT 77097 KENYA KENYA IC 4 HEN HEN PROPHYLAC TIC/DX INJECTION SUBQ/IM THERAPEUT 05815 ARIANA ARIANA IC 4 CLINIC CLINIC PROPHYLAC TIC/DX INJECTION SUBQ/IM INJECTION J1030 ARIANA DIAZ- 4 [facility] METHYLPRE DNISOLONE ACETATE 40 MG THERAPEUT 51805 KENYA KENYA IC 4 HEN HEN PROPHYLAC TIC/DX INJECTION SUBQ/IM COMPUTER- 68394 ABBIE LEIVA AIDED 4 [facility] DETECTION INC INC SCREENING MAMMOGRAP HY SCREENING G0202 BEINEKE D BEINEKE D 4 MAMMOGRAP HY REID INCL CAD WHEN PERFORMD THERAPEUT 57164 ARIANA KENYA IC 4 CLINIC HEN PROPHYLAC TIC/DX INJECTION SUBQ/IM COMPREHEN 37572 [facility] SHERI SIVE 4 [facility] METABOLIC [place] [address] LAB SHERI LAB SHERI FOLIC 4 [facility] ACID [place] [address] LAB SHERI LAB SHERI IRON 4 [facility] INJECTION J3420 ARIANA DIAZ- VIT B-12 4 [facility] CYANOCOBA KAILEY TO 1000 MCG THERAPEUT 56036 ARIANA DIAZ- IC 4 [facility] PROPHYLAC TIC/DX INJECTION SUBQ/IM CYANOCOBA 02930 LAB SHERI LAB SHERI KAILEY 4 [facility] VITAMIN [facility] HOLDINGS B-12 25 49800 LAB [facility]I HYDROXY 4 [facility] INCLUDES [facility]INGS HOLDINGS FRACTIONS IF PERFORMED ORGANIC 40935 [facility] ACID 1 4 [facility] QUANTITAT [facility] YVTETE BLOOD 62650 LAB [facility] COUNT 4 [facility] COMPLETE [facility] AUTOMATED IRON 35836 [facility] BINDING 4 [facility] CAPACITY [facility] COLLECTIO 60571 ARIANA ARIANA N VENOUS 4 CLINIC CLINIC BLOOD VENIPUNCT URE TB CELL 95005 [facility] MEDIATED 4 N N ANTIGN [facility] RESPNSE HOSPITA HOSPITA GAMMA INTERFERO N ANTIBODY 82906 [facility] BLASTOMYC 4 N N ES [facility] HOSPITA HOSPITA ANTIBODY 64104 [facility] COCCIDIOI 4 N N AMANDA [facility] HOSPITA HOSPITA ANTIBODY 30070 [facility] HISTOPLAS 4 N N MA [facility] HOSPITA HOSPITA COLLECTIO 43316 [facility] N VENOUS 4 N N BLOOD [facility] URE COLLECTIO 04426 ARLENE JACOBS N VENOUS 4 [facility] [place] [address] [facility] THYROID 4 [facility] NG HORMONE TSH CALCIUM 82939 [facility] TOTAL 4 [facility] [address] [facility] THYROXINE [address] [facility] THORAX 65580 CISCO CISCO W/O 4 [place] [address] LABORATOR LABORATOR SURG 4 Y Y PATHOLOGY CORPORATI CORPORATI ON OF AM ON OF AM GROSS&AIYANA ROSCOPIC EXAM COLLECTIO 70643 ARIANA DIAZ- N VENOUS [facility] BLOOD VENIPUNCT URE BLOOD 89726 [facility] COUNT 4 [facility] AUTOMATED LIPID 35169 [facility] PANEL 4 [facility] CRYOTHERA 37807 ARIANA DIAZ- PY CO2 4 [facility] SLUSH LIQUID N2 ACNE COMPREHEN 71093 [facility] SIVE 4 [facility] METABOLIC [facility] PANEL ECG 07273 [facility]USHRA CARRASQUILLO ROUTINE 4 MEDICAL NAN ECG SERV W/LEAST FOUNDATIO 12 LDS N I&R ONLY LEVEL V 74048 ANNMARIE ANNMARIE SURG 4 KARINA KARINA PATHOLOGY GROSS&[place] [address] ANNMARIE ANNMARIE SURG 4 KARINA KARINA PATHOLOGY GROSS&AIYANA ROSCOPIC EXAM PATH 92697 ANNMARIE ANGUIANO CONSLTJ 4 KARINA KARINA SURG 1ST BLK FROZEN SCTJ 1 SPEC TOTAL 52293 KAYLYNN CHAIDEZ THYROID 4 NHAN NHAN LOBEC UNI W/CONTRAL AT [facility] LOBEC ANES 71797 MALONE AIYANA MALONE AIYANA ESOPH 4 THYRD LARYNX TRACH & LYMPH NECK 1YR BX/EXC 10194 KAYLYNN CHAIDEZ LYMPH 4 NHAN NHAN NODE OPEN DEEP CERVICAL NODE ADMN SET A7005 YOUR YOUR W/SM VOL 4 PH[facility]ACY [facility] NEBULIZ[facility] NON-DISPB L RADEX 87738 ARLENE JACOBS COLON 4 CO CO W/SPEC [facility] HOSPITAL DNS BARIUM W/WO GLUCAGON EGD 78433 [facility]ANK[facility] FELIPENS TRANSORAL 4 LAR LAR BIOPSY SINGLE/MU LTIPLE INJECTION J2250 JACOBS JACOBS 4 CO CO [facility] HCL PER 1 MG CUL BACT 36516 JACOBS JACOBS AEROBIC 4 CO CO ADDL [facility] METHS DEFINITIV E EA ISOL ANES 33219 ARLENE JACOBS UPPER GI 4 CO CO ENDOSCOPY [facility] PROXIMAL TO DUODENUM INJECTION J3010 JACOBS JACOBS FENTANYL 4 CO CO CITRATE [facility] 0.1 MG RINGERS J7120 JACOBS JACOBS LACTATE 4 CO CO INFUSION [facility] UP TO [address] [place] [address] ARLENE JACOBS SURG 4 CO CO PATHOLOGY [facility] GROSS&AIYANA ROSCOPIC EXAM CT SOFT 83414 VICENTE ZHANG TISSUE 4 SABA SABA NECK W/[place] [address] VICENTE ZHANG ABDOMEN & 4 SABA SABA PELVIS W/O CONTRAST MATERIAL AMB A0427 ARLENE JACOBS SERVICE [address] [place] [address] [facility] AMBULANCE EMERGENCY TRANSPORT LEVEL 1 GROUND A0425 ARLENE JACOBS [address] PER AMBULANCE AMBULANCE STATUTE MILE ECG 06957 SADEK MOH SADEK MOH ROUTINE 4 ECG W/LEAST 12 LDS I&R ONLY IRON 28196 [facility] BINDING 4 OF [facility] CAPACITY [facility] RADEX 98402 [facility], [facility], FOREARM 2 4 PAPER PRODUCTS PRINTER PAPER PRODUCTS PRINTER VIEWS GISSELMarianne CHAUHAN CO HOS CO HOS CYANOCOBA 48181 [facility] KAILEY 4 OF [facility] VITAMIN [facility] [address] [place] [address] LAB [facility] LAB [facility] IRON 4 OF [place] [address] [facility] FOLIC 4 OF [facility] ACID [facility] SERUM HOLDINGS BLOOD 87710 [facility] COUNT 4 OF [facility] COM[facility]TE [facility] AUTOMATED HOLDINGS COLLECTIO 21860 ARIANA DIAZ-DONNELL N VENOUS 4 CLINIC SE [...] W/POS EQUIPME EQUIPME ARWAY PRESSURE DEVICE URINLS 23891 ARIANA DIAZ- DIP 4 [facility] STICK/TAB LET REAGNT NON-AUTO MICRSCPY COMPREHEN 111[address] JACOBS JACOBS SIVE 4 CO CO [facility] PANEL BLOOD 01511 JACOBS JACOBS COUNT 4 CO CO [facility] AUTO&AUTO DIFRNTL WBC PRESSURIZ 29717 JACOBS JACOBS ED/NONPRE 4 CO CO SSURIZED [facility] INHALATIO N TREATMENT INJECTION J1170 [facility] 4 CO CO HYDROMORP [facility] BARBI UP TO 4 MG INJECTION J1885 [facility] 4 CO CO KETOROLAC [facility] TROMETH[place] IN[place] [address] [place] [address] [facility] ABDOMEN & 4 SABA SABA PELVIS W/O CONTRST 1/> BODY RE CT THORAX 20300 [facility] W/O 4 N N CONTRAST COMMUNTIY COMMUNTIY MATERIAL HOSPITA HOSPITA BRNCDILAT 33363 [facility] RSPSE 4 N N SPMTRY COMMUNTIY COMMUNTIY PRE&POST- [place] [address] [facility] DIFFUSING 4 N N CAPACITY COMMUNTIY COMMUNTIY HOSPITA HOSPITA PLETHYSMO 85074 [facility] GRAPHY 4 N N LUNG COMMUNTIY COMMUNTIY VOLUMES HOSPITA HOSPITA W/WO AIRWAY RESIST ADMN SET A7003 YOUR YOUR SM VOL 4 PHARMACY PHARMACY NONFILTR LLC LLC PNEUMAT NEBULIZR DISPBL COMPRE 27362 MANDY GALVAN AUDIOMETR 4 LIAM LIAM Y THRESHOLD EVAL SP RECOGNIJ TYMPANOME 58967 MANDY GALVAN TRY 4 LIAM LIAM US SOFT 65885 [facility] TISSUE 4 Y Y HEAD & HOSPITAL HOSPITAL NECK REAL TIME IMGE [facility] G0463 [facility] OUTPATI 4 Y Y T EMORY [facility] VISIT ASSESS & MGMT PT ADMN SET A7003 YOUR YOUR SM VOL 3 PHARMACY PHARMACY NONFILTR LLC LLC PNEUMAT NEBULIZR DISPBL SEDIMENTA 26341 [facility] TION RATE 3 Y Y RBC [facility] AUTOMATED LARYNGOSC 60525 MANDY GALVAN OPY 3 LIAM LIAM FLEXIBLE DIAGNOSTI C BLOOD 00665 [facility] COUNT 3 Y Y COMPLETE LDS HOSPITAL HOSPITAL AUTO&AUTO DIFRNTL WBC COMPREHEN 05891 [facility] SIVE 3 Y Y METABOLIC [facility] [place] [address] [facility] THYROID 3 Y Y STIMULATI [facility] [place] [address] [facility] FREE 3 Y Y THYROXINE [facility] DRUG SCR G0434 GIOVANNY RICHARDSON NOT 3 CHROMATOG RAPHIC; ANY NUMBER PT ENC INJECTION J0696 ARIANA DIAZ- 3 [facility] [place] CEFTRIAXO NE SODIUM PER 250 [address]ERAPEUT [address] IC 3 CLINIC CLINIC PROPHYLAC TIC/DX INJECTION SUBQ/IM HOSPITAL 49002 [facility] DISCHARGE 3 IBR IBR DAY MANAGEMEN T 30 MIN/< US SOFT 80217 VICENTE MERCEDESMAN TISSUE 3 SABA SABA HEAD & NECK REAL TIME IMGE DOCM SBSQ 68889 [facility] 3 IBR IBR CARE/DAY 25 MINUTES RADIOLOGI 63398 VICENTE ZHANG C EXAM 3 SABA SABA CHEST 2 VIEWS FRONTAL&L ATERAL INITIAL 16621 [facility] 3 LEE LEE CARE/DAY DECALVO DECALVO 50 MAR MAR MINUTES RADIOLOGI 11973 VICENTE ZHANG C 3 SABA SABA EXAMINATI ON CHEST SINGLE VIEW FRONTAL CT THORAX 16956 [facility] 3 AGUILAR SHEIKH W/CONTRAS T PHYSICIAN PHYSICIAN MATERIAL S DECEMBER S DECEMBER LOCM Q9967 ST ST 300-399 3 AGUILAR SHEIKH MG/ML IODINE PHYSICIAN PHYSICIAN CONCENTRA S DECEMBER S DECEMBER TION PER ML RADIOLOGI 01470 ELSA HUNTER C EXAM 3 [facility] CHEST 2 VIEWS FRONTAL&L ATERAL RADIOLOGI 51064 JESSE AVELAR C EXAM 3 EMERGENCY MAR CHEST 2 SERVICES VIEWS FRONTAL&L ATERAL FILTER A7038 AMAYA CONDE DISPBL 3 HOME HOME USED MEDICAL MEDICAL W/POS EQUIPME EQUIPME ARWAY PRESSURE DEVICE CUSHN A7032 AMAYA CONDE NASAL 3 HOME HOME MASK MEDICAL MEDICAL INTERFACE EQUIPME EQUIPME REPLACEME NT ONLY EACH ADMN SET A7003 YOUR YOUR SM VOL 3 PHARMACY PHARMACY NONFILST. [facility] [place] [address] ARLENE BOWMAN KRISTEN LIPASE 3 CO HOSPITAL INJECTION J0500 ARLENE JACOBS 3 CO CO DICYCLOMI [facility] NE HCL UP TO 20 MG COMPREHEN 52874 ARLENE JACOBS SIVE 3 CO CO [facility] [place] [address] ARLENE JACOBS AMYLASE 3 CO [facility] INJECTION J2405 ARLENE JACOBS 3 CO CO [facility] ON HCL PER 1 MG INFUSION J7050 ARLENE JACOBS NORMAL 3 CO CO SALINE [facility] SOLUTION 250 CC BLOOD 76548 ARLENE JACOBS COUNT 3 CO CO [facility] AUTO&AUTO DIFRNTL WBC URNLS DIP 50123 ARLENE JACOBS 3 CO CO STICK/TAB HOSPITAL H[place] [address] ELSA HUNTER ABDOMEN & 3 CALVIN CALVIN PELVIS W/CONTRAS T MATERIAL RADIOLOGI 22772 [facility] C EXAM 3 SABA SABA CHEST 2 VIEWS FRONTAL&L ATERAL SKIN TEST 78051 SHELLEY ROSA 3 [place]RIE TUBERCULO SIS INTRADERM AL BLOOD 43024 [facility] SHERI COUNT 3 MARVA MARVA COMPLETE HOLDINGS HOLDINGS AUTOMATED LIPID 74843 [facility]I PANEL 3 MARVA MARVA [employer]INGS HOLDINGS HEMOGLOBI 20994 [facility] SHERI N 3 MARVA MARVA GLYCOSYLA HOLDINGS HOLDINGS KAMLA A1C COMPREHEN 54333 [facility] SIVE 3 [facility] METABOLIC HOLDINGS HOLDINGS PANEL ADMN SET A7003 YOUR YOUR SM VOL 3 [facility] [place] [address] ABBIE LEIVA LIPASE 3 MEM HOSP MEM [facility]OS[facility] INC INC BLOOD 15420 ABBIE LEIVA COUNT 3 MEM HOS[facility] MEM HOSP COMPLETE INC INC AUTO&AUTO DIFRNTL WBC COMPREHEN 94745 ABBIE LEIVA SIVE 3 MEM HOS[facility] [place] [address] ABBIE LEIVA AMYLASE 3 MEM HOSP MEM [facility]OS[facility] INC INC DRUG SCR G0434 GIOVANNY RICHARDSON NOT 3 CHROMATOG RAPHIC; ANY NUMBER PT ENC RADIOLOGI 42317 [employer], C EXAM 3 PAPER PRODUCTS PRINTER PAPER PRODUCTS PRINTER CHEST 2 GISSEL GISSEL VIEWS CO HOS CO HOS FRONTAL&L ATERAL DRUG SCR G0434 GIOVANNY RICHARDSON NOT 3 CHROMATOG RAPHIC; ANY NUMBER PT ENC CUSHN A7032 AMAYA AMAYA NASAL 3 HOME HOME MASK MEDICAL MEDICAL INTERFACE EQUIPME EQUIPME REPLACEME NT ONLY EACH FILTER A7038 AMAYA AMAYA DISPBL 3 HOME HOME USED MEDICAL MEDICAL W/POS EQUIPME EQUIPME ARWAY PRESSURE DEVICE COMPREHEN 51167 [employer], SIVE 3 PAPER PRODUCTS PRINTER PAPER PRODUCTS PRINTER METABOLIC GISSEL G[place] [address] [facility], AMYLASE 3 PAPER PRODUCTS PRINTER PAPER PRODUCTS PRINTER GISSEL GISSEL CO HOS CO HOS BLOOD 99927 [facility], COUNT 3 PAPER PRODUCTS PRINTER PAPER PRODUCTS PRINTER COMPLETE GISSEL GISSEL AUTO&AUTO [place] [address] [facility], LIPASE 3 PAPER PRODUCTS PRINTER PAPER PRODUCTS PRINTER GISSEL GISSEL CO HOS CO HOS ADMN SET A7003 YOUR YOUR SM VOL 3 PHARMACY PHARMACY NONFILST. [facility] PNEUMAT NEBULIZR DISPBL CYSTO 64798 [facility] BLADDER 3 [facility] W/URETERA HOSP HOSP L CATHETERI ZATION INJECTION J3010 [facility] FENTANYL 3 [facility] CITRATE HOSP HOSP 0.1 MG CATHETER C1758 [facility] URETERAL 3 [facility] HOSP HOSP GLUC BLD 97492 [facility] GLUC MNTR 3 SIKH [facility] DEV HOSP HOSP CLEARED FDA SPEC HOME USE BLOOD 16825 [facility] COUNT 3 SIKH [facility] COMPLETE HOSP HOSP AUTOMATED PRESSURIZ 42764 [facility] ED/NONPRE 3 SIKH [facility] SSURIZED HOSP HOSP INHALATIO N TREATMENT ANES 14496 [facility] TRANSURET 3 HRAL W/URETHRO CYSTOSCOP Y NOS ECG 80388 ARTHUR ARTHUR ROUTINE 3 SOREN SOREN ECG W/LEAST 12 LDS I&R ONLY INJECTION J2405 [facility] 3 SIKH SIKH ONDANSETR HOSP HOSP ON HCL PER 1 MG LOCM Q9967 [facility] 300-399 3 SIKH SIKH MG/ML HOSP HOSP IODINE CONCENTRA TION PER ML X-RAY 14676 [facility] ADA URINARY 3 RADIOLOGY TRACT ASSOC EXAM WITH CONTRAST MATERIAL DILAT 16173 MAHNAZ JOYA JR FEMALE 3 SOREN SOREN URETHRA W/SUPPOSI TORY&/INS TLJ INI URNLS DIP 06390 MAHNAZ JOYA JR 3 SOREN SOREN STICK/TAB LET RGNT NON-AUTO W/O MICRSCP NELSON 38767 MAHNAZ JOYA JR POST-VOID 3 SOREN SOREN ING RESIDUAL URINE&/BL ADDER CAP ADMN SET A7003 YOUR YOUR SM VOL 3 PHARMACY PHARMACY NONFILTR [facility] PNEUMAT NEBULIZR DISPBL GLUC BLD 54953 ARIANA ZAMBRANO GLUC MNTR 3 CLINIC [place]EN [place] [address] ABBIE LEIVA TRANSVAGI 3 MEM HOS[facility] MEM [facility]OS[facility] NAL INC INC COMPUTER- 87576 ABBIE LEIVA AIDED 3 MEM HOSP MEM HOSP DETECTION INC INC SCREENING MAMMOGRAP HY SCREENING G0202 ABBIE LEIVA 3 MEM HOSP MEM HOSP MAMMOGRAP INC INC HY REID INCL CAD WHEN PERFORMD BLOOD 93009 [facility] OCCULT 3 KELLY KELLY PEROXIDAS E ACTV QUAL FECES 1-3 SPEC CULTURE 30280 [facility] CHLAMYDIA 3 KELLY KELLY ANY SOURCE IADNA 52455 [facility] NEISSERIA 3 KELLY KELLY GONORRHOE AE DIRECT PROBE TQ URINLS 28741 [facility] DIP 3 KELLY KELLY STICK/TAB LET REAGNT NON-AUTO MICRSCPY HEMOGLOBI 69955 LAB [facility] LAB SHERI N 3 MARVA MARVA GLYCOSYLA HOLDINGS HOLDINGS KAMLA A1C COMPREHEN 29043 LAB [facility] SHERI SIVE 3 MARVA MARVA METABOLIC [employer] HOLDINGS PANEL AMB A0427 TAJIK TAJIK SERVICE 3 AM[facility]LETT AMBULETT ALS & & EMERGENCY AMBULANC AMBULANC TRANSPORT LEVEL 1 GROUND A0425 TAJIK TAJIK MILEAGE 3 [facility] PER & & [place] [address] DANIEL MAT DANIEL MAT ABDOMEN & 3 [...] YOUR YOUR SM VOL 3 PHARMACY PHARMACY [facility] PNEUMAT NEBULIZR DISPBL PRESSURIZ 62552 JESUS LEE ED/NONPRE 3 [facility] INHALATIO N TREATMENT CUL BACT 36435 JESUS HUNTERSTEVE XCPT 3 [facility] BLOOD/STO OL AEROBIC ISOL CUL BACT 05493 [facility] AEROBIC 3 [facility] METHS DEFINITIV E EA ISOL SMR PRIM 03284 [facility] HUNTER SRC 3 [facility] SA STAIN BCT FUNGI/SHUBHAM L SUSCEPTIB 11643 [facility] HUNTER LTY STDY 3 [facility] IAL MICRO/[place] [address] [facility] TROPONIN 3 [facility] B[facility] 13165 [facility]UNTER[facility] GASES ANY 3 [facility] COMBINATI ON PH PCO2 PO2 CO2 HCO3 BLOOD 69634 [facility] COUNT 3 [facility] AUTOMATED CULTURE 60980 [facility] BACTERIAL 3 [facility] AEROBIC W/ID ISOLATES CULTURE 63049 [facility] BACTERIAL 3 [facility] QUANTTATI VE COLONY COUNT URINE COMPREHEN 99179 JESUS LEE SIVE 3 [facility] METABOLIC HOSPITAL HOSPITAL PANEL CREATINE 45389 JESUS LEE KINASE MB 3 [facility] HOSPITAL ONLY HOSPITAL G0378 JESUS LEE OBSERVATI 3 [facility] ON HOSPITAL HOSPITAL SERVICE PER HOUR RADIOLOGI 67195 DANIEL MAT DANIEL MAT C EXAM 3 CHEST 2 VIEWS FRONTAL&L ATERAL URNLS DIP 95011 [facility] [address] [place] [address] STICK/TAB HOSPITAL HOSPITAL LET REAGENT AUTO MICROSCOP Y CPAP 95543 [facility] VENTILATI 3 [facility] ON CPAP HOSPITAL HOSPITAL INITIATIO N&MGMT PRESSURIZ 71686 [facility] LEE ED/NONPRE 3 [facility] SSURIZED HOSPITAL HOSPITAL INHALATIO N TREATMENT SBSQ 50155 YOSELIN YOSELIN OBSERVATI 3 NURY IGN NURY IGN ON CARE/DAY 15 MINUTES CREATINE 30628 JESUS LEE KINASE 3 [facility] TOTAL [facility] HOSPITAL FIBRIN 51565 JESUS LEE DGRADJ 3 [facility] PRODUCTS HOSPITAL HOSPITAL D-DIMER QUANTITAT YVETTE ECG 98207 [facility] ROUTINE 3 [facility] ECG HOSPITAL HOSPITAL W/LEAST 12 LDS TRCG ONLY W/O I&R ADMN SET A7003 YOUR YOUR SM VOL 3 PHARMACY PHARMACY NONFILTR [employer] PNEUMAT NEBULIZR DISPBL CUSHN A7032 AMAYA CONDE NASAL 3 HOME HOME MASK MEDICAL MEDICAL INTERFACE EQUIPME EQUIPME REPLACEME NT ONLY EACH FILTER A7038 AMAYA CONDE DISPBL 3 HOME HOME USED MEDICAL MEDICAL W/POS EQUIPME EQUIPME ARWAY PRESSURE DEVICE ADMN SET A7003 YOUR YOUR SM VOL 3 PHARMACY PHARMACY NONFILTR [employer] PNEUMAT NEBULIZR DISPBL 3D 74650 ABBIE ABBIE RENDERING 3 [facility] INC INC W/INTERP& [place] [address] TYRONE TYRONE ABDOMEN & 3 COURTNEY COURTNEY PELVIS W/CONTRAS T MATERIAL LOCM Q9967 ABBIE LEIVA 300-399 3 MEM HOS[facility] MEM [facility]OS[facility] MG/ML INC INC IODINE CONCENTRA TION PER ML US SOFT 84858 [facility] 3 Y Y HEAD & LDS HOSPITAL HOSPITAL [place] [address] ABBIE LEIVA UREA 3 MEM H[facility] NITROGEN INC INC QUANTITAT YVETTE CREATININ 20836 ABBIE LEIVA E BLOOD 3 MEM HOS[facility] MEM [facility]OS[facility] INC INC ADMN SET A7003 YOUR YOUR SM VOL 3 PHARMACY PHARMACY NONFILST. [facility] PNEUMAT NEBULIZR DISPBL CV STRS 88062 KELLOGG CORNELIO LAWRENCEYA CORNELIO TST 3 XERS&/OR RX CONT ECG W/O I&R TECHNETIU A9500 [facility] TC-99M [address] [facility] DX PER STUDY DOSE CV STRS 59193 [facility] 3 Y Y XERS&/OR HOSPITAL HOSPITAL RX CONT ECG TRCG ONLY INJECTION J2785 [facility] 3 Y Y [facility] ON 0.1 MG CV STRS 55709 BESS CORNELIOPamela KELLOGG CORNELIO TST 3 XERS&/OR RX CONT ECG I&R ONLY MYOCARDIA 88602 [facility] SPECT 3 Y Y [facility] STUDIES RADIOLOGI 54441 [employer], C EXAM 3 PAPER PRODUCTS PRINTER PAPER PRODUCTS PRINTER CHEST 2 GISSEL CHAUHAN VIEWS CO HOS CO HOS FRONTAL&L ATERAL INJECTION J0696 CANDIDA TIRADO 3 Aug CEFTRIAXO NE SODIUM PER 250 MG THERAPEUT 64490 CANDIDA TIRADO IC 3 Aug PROPHYLAC TIC/DX INJECTION SUBQ/IM ECG 42350 KOREY DA SILVA ROUTINE 3 ECG W/LEAST 12 LDS I&R ONLY ECG 82647 CANDIDA TIRADO ROUTINE 3 Aug ECG W/LEAST [...] EQUIPME [place] [address] KARTHIK AIYANA KARTHIK AIYANA SURG 3 PATHOLOGY GROSS&AIYANA ROSCOPIC EXAM SPCL STN 76426 KARTHIK AIYANA KARTHIK AIYANA 2 I&R 3 EXCPT MICROORG/ ENZYME/IM CYT ANES 33770 COMMUNITY ARZATE SOREN LOWER 3 ANESTH INTESTINE OF THE BLUE ENDOSCOPY DISTAL DUODENUM COLSC FLX 51672 CAMARILLO MOIRA CAMARILLO MOIRA W/RMVL 3 OF TUMOR POLYP LESION SNARE TQ COLONOSCO 09647 CAMARILLO MOIRA CAMARILLO MOIRA PY 3 W/BIOPSY SINGLE/MU LTIPLE EGD 55340 CAMARILLO MOIRA CAMARILLO MOIRA TRANSORAL 3 BIOPSY SINGLE/MU LTIPLE RADEX 03685 [facility] HAND 3 SABA MINIMUM 3 RADIOLOGY VIEWS ASSOCIAT LARYNGOSC 43529 MANDY GALVAN OPY 3 LIAM WHEELER FLEXIBLE DIAGNOSTI C CONTINUOU E0601 AMAYA CONDE S 3 HOME HOME POSITIVE MEDICAL MEDICAL AIRWAY EQUIPME EQUIPME PRESSURE DEVICE CUSHN A7032 AMAYA CONDE NASAL 2 HOME HOME MASK MEDICAL MEDICAL INTERFACE EQUIPME EQUIPME REPLACEME NT ONLY EACH ADMN SET A7003 YOUR YOUR SM VOL 2 PHARMACY PHARMACY NONFILTR [employer] PNEUMAT NEBULIZR DISPBL FILTER A7013 YOUR YOUR DISPOSABL 2 PHARMACY PHARMACY [employer] W/AREOSOL COMPRESS/ US GENERATOR RADEX 32809 [facility] 2 Y Y [facility] CYTP EVAL 81039 [facility] 2 Y Y [facility] ASPIRATE INTERP & REPORT US SOFT 24832 ELIZABET ELIZABET TISSUE 2 YARON YARON HEAD & [place] [address] [facility]IZAB[facility] ELIZABET GUIDANCE 2 YARON YARON NEEDLE PLACEMENT IMG S&I FINE 15271 ELIZAB[facility] ELIZABET NEEDLE 2 YARON YARON ASPIRATIO N WITH IMAGING GUIDANCE FINE 60046 [facility] NEEDLE 2 Y Y ASPIRATIO [facility] N W/O IMAGING GUIDANCE LARYNGOSC 35153 MANDY KEANEO OPY 2 LIAM WHEELER FLEXIBLE DIAGNOSTI C MICROSOMA 24809 [facility] L 2 Y Y ANTIBODIE [facility] S EACH COMPREHEN 68687 [facility] SIVE 2 Y Y METABOLIC [facility] [place] [address] [facility] THYROID 2 Y Y STIMULATI [facility] [place] [address] [facility] FREE 2 Y Y THYROXINE [facility] COLLECTIO 58020 [facility] V[facility] Y Y BLOOD [facility] VENIPUNCT URE CONTINUOU E0601 AMAYA CONDE S 2 HOME HOME POSITIVE MEDICAL MEDICAL AIRWAY [place] [address] [facility] ABDOMEN & 2 Y JUS Y JUS PELVIS W/CONTRAS T MATERIAL AMBULANCE A0429 TAJIK TAJIK SERVICE 2 AMBULETT AMBULETT BLS & & EMERGENCY AMBULANC AMBULANC TRANSPORT GROUND A0425 TAJIK TAJIK MILEAGE 2 [facility]TT AMBULETT PER & & [place] [address] [facility], [facility], ABDOMEN & 2 PAPER PRODUCTS PRINTER PAPER PRODUCTS PRINTER PELVIS GISSEL CHAUHAN W/O CO HOS CO HOS CONTRST 1/> BODY RE BASIC 26632 [facility], [facility], METABOLIC 2 PAPER PRODUCTS PRINTER PAPER PRODUCTS PRINTER PANEL GISSEL CHAUHAN [place] [address] [facility], [facility], INFUSION 2 PAPER PRODUCTS PRINTER PAPER PRODUCTS PRINTER HYDRATION GISSEL CHAUHAN EACH CO HOS CO HOS ADDITIONA L HOUR URNLS DIP 17918 [facility], [facility], 2 PAPER PRODUCTS PRINTER PAPER PRODUCTS PRINTER STICK/TAB GISSEL CHAUHAN LET RGNT CO HOS CO HOS AUTO W/O MICROSCOP Y BLOOD 96570 [facility], [facility], COUNT 2 PAPER PRODUCTS PRINTER PAPER PRODUCTS PRINTER COMPLETE GISSEL CHAUHAN AUTO&AUTO CO HOS CO HOS DIFRNTL WBC ADMN SET A7003 YOUR YOUR SM VOL 2 PHARMACY PHARMACY NONFILTR [facility] PNEUMAT NEBULIZR DISPBL FILTER A7013 YOUR YOUR DISPOSABL 2 PHARMACY PHARMACY [facility] W/AREOSOL COMPRESS/ US GENERATOR CUSHN A7032 AMAYA CONDE NASAL 2 HOME HOME MASK MEDICAL MEDICAL INTERFACE EQUIPME EQUIPME REPLACEME NT ONLY EACH FILTER A7038 AMAYA CONDE DISPBL 2 HOME HOME USED MEDICAL MEDICAL W/POS EQUIPME EQUIPME ARWAY PRESSURE DEVICE INJECTION A9576 [facility] 2 CO CO [facility] OL PROHANCE MULTIPACK PER ML MRI BRAIN 56401 [facility] BRAIN 2 CO CO STEM W/O [facility] W/[place] [address] [facility] ANGIOGRAP 2 CO CO [facility] W/CONTRAS T/NONCONT RAST DIAGNOSTI G0204 [facility] C [address] [facility] HY INCL CAD WHEN PERF; BILAT COMPUTER- 38259 [facility] AIDED 2 Y Y [facility] DX MAMMOGRAP HY CONTINUOU E0601 AMAYA CONDE S 2 HOME HOME POSITIVE MEDICAL MEDICAL AIRWAY EQUIPME EQUIPME PRESSURE DEVICE COLLECTIO 79404 [facility] N VENOUS 2 N N BLOOD [facility] VENIPUNCT HOSPITA HOSPITA URE COMPREHEN 31418 [facility] SIVE 2 N N METABOLIC [facility] [place] [address] [facility] FREE 2 N N THYROXINE [facility] [place] [address] [facility] HENLY NAN THYROID 2 N STIMULATI [facility] HORMONE TSH BLOOD 42983 [facility] COUNT 2 N N COMPLETE [facility] AUTO&AUTO HOSPITA HOSPITA DIFRNTL WBC URNLS DIP 87222 [employer], 2 PAPER PRODUCTS PRINTER PAPER PRODUCTS PRINTER STICK/TAB GISSEL CHAUHAN LET CO HOS CO HOS REAGENT AUTO MICROSCOP Y DRUG SCR G0434 [employer], NOT 2 PAPER PRODUCTS PRINTER PAPER PRODUCTS PRINTER CHROMATOG GISSEL CHAUHAN RAPHIC; CO HOS CO HOS ANY NUMBER PT ENC US SOFT 98712 [facility] [employer], [facility], TISSUE 2 PAPER PRODUCTS PRINTER PAPER PRODUCTS PRINTER HEAD & GISSEL SHEEHANS NECK REAL CO HOS CO HOS TIME IMGE DOCM DUPLEX 73968 [facility] 2 SABA EXTRACRAN RADIOLOGY IAL ART ASSOCIAT COMPL BI [facility] [address] [facility] Aug DAY MANAGEMEN T 30 MIN/< SBSQ 52723 [facility] 2 Aug CARE/DAY 25 MINUTES INITIAL 48283 [facility] 2 Aug CARE/DAY 50 MINUTES RADIOLOGI 44176 [facility] C EXAM 2 [facility] CHEST 2 RADIOLOGY VIEWS ASSOCIAT FRONTAL&L ATERAL RADIOLOGI 85160 [facility] C 2 CALVIN EXAMINATI RADIOLOGY ON SKULL ASSOCIAT 4/> VIEWS RADEX ABD 33053 [facility] 2 CALVIN ANTEROPOS RADIOLOGY T&ADDL ASSOCIAT OBLQ&[place] [address] [facility] [employer], [facility], HEAD/BRAI 2 PAPER PRODUCTS PRINTER PAPER PRODUCTS PRINTER N W/O GISSEL GISSEL CONTRAST CO HOS CO HOS MATERIAL CUSHN [id number] AMAYA AMAYA NASAL 2 HOME HOME MASK MEDICAL MEDICAL INTERFACE EQUIPME EQUIPME REPLACEME NT ONLY EACH CONTINUOU E0601 AMAYA AMAYA S 2 HOME HOME POSITIVE MEDICAL MEDICAL AIRWAY EQUIPME EQUIPME PRESSURE DEVICE ADMN SET A7003 YOUR YOUR SM VOL 2 PHARMACY PHARMAC[facility] PNEUMAT NEBULIZR DISPBL RADEX 23905 [facility] [employer], [facility], SMALL 2 PAPER PRODUCTS PRINTER PAPER PRODUCTS PRINTER INTESTINE GISSEL GISSEL CO HOS CO HOS W/MULTIPL E SERIAL IMAGES LIPID 53287 [facility] [employer], [facility], PANEL 2 PAPER PRODUCTS PRINTER PAPER PRODUCTS PRINTER GISSEL GISSEL CO HOS CO HOS INJECTION J2550 [facility] [employer], [facility], 2 PAPER PRODUCTS PRINTER PAPER PRODUCTS PRINTER PROMETHAZ GISSEL GISSEL INE HCL CO HOS CO HOS UP TO 50 MG GENERAL [address]00 [facility] [employer], [facility], HEALTH 2 PAPER PRODUCTS PRINTER PAPER PRODUCTS PRINTER PANEL GISSEL GISSEL CO HOS CO HOS INJECTION J1885 [facility] [employer], [facility], 2 PAPER PRODUCTS PRINTER PAPER PRODUCTS PRINTER KETOROLAC GISSEL GISSEL CO HOS CO HOS TROMETHAM INE PER 15 MG IMMUNOFLU 82957 [facility], [facility], ORESCENT 2 PAPER PRODUCTS PRINTER PAPER PRODUCTS PRINTER STUDY EA GISSEL GISSEL ANTIBODY CO HOS CO HOS INDIR METHOD THERAPEUT 13701 [facility] [employer], [facility], IC 2 PAPER PRODUCTS PRINTER PAPER PRODUCTS PRINTER PROPHYLAC GISSEL GISSEL TIC/DX CO HOS CO HOS INJECTION SUBQ/[place] [address] [facility] [employer], [employer], LIPASE 2 PAPER PRODUCTS PRINTER PAPER PRODUCTS PRINTER GISSEL GISSEL CO HOS CO HOS PROTHROMB 37666 [facility], [facility] [employer], IN TIME 2 PAPER PRODUCTS PRINTER PAPER PRODUCTS PRINTER GISSEL GISSEL CO HOS CO HOS CONTINUOU E0601 AMAYA CONDE S 2 HOME HOME POSITIVE MEDICAL MEDICAL AIRWAY EQUIPME EQUIPME PRESSURE DEVICE THERAPEUT 48381 CANDIDA TIRADO IC 2 Aug PROPHYLAC TIC/DX INJECTION SUBQ/IM INJECTION [id number] TAMAR[facility] TAMAREN 2 Aug KETOROLAC TROMETHAM INE [place] [address] [place] [address] [facility] [place]ANIEL MAT ABDOMEN & 2 RADIOLOGY PELVIS W/O CONTRAST MATERIAL ADMN SET A7003 YOUR YOUR SM VOL 2 PHARMACY PHARMACY [facility] [place] [address] [facility] [employer], [facility] [employer], ABDOMEN & 2 PAPER PRODUCTS PRINTER PAPER PRODUCTS PRINTER PELVIS GISSEL GISSEL W/O CO HOS CO HOS CONTRST 1/> BODY RE LOCM Q9967 [facility] [employer], [employer], [phone] PAPER PRODUCTS PRINTER PAPER PRODUCTS PRINTER MG/ML GISSEL GISSEL IODINE CO HOS CO HOS CONCENTRA TION PER ML COMPREHEN 38517 [facility] [employer], [employer], SIVE 2 PAPER PRODUCTS PRINTER PAPER PRODUCTS PRINTER METABOLIC GISSEL GISSEL PANEL CO HOS CO HOS LACTATE 71308 [facility] [employer], [facility], DEHYDROGE 2 PAPER PRODUCTS PRINTER PAPER PRODUCTS PRINTER NASE LDH GISSEL GISSEL CO HOS CO HOS BLOOD 19371 [facility] [employer], [facility] [employer], COUNT 2 PAPER PRODUCTS PRINTER PAPER PRODUCTS PRINTER COMPLETE GISSEL GISSEL AUTO&AUTO CO HOS CO HOS DIFRNTL WBC CARCINOEM 46092 [facility], [employer], BRYONIC 2 PAPER PRODUCTS PRINTER PAPER PRODUCTS PRINTER ANTIGEN GISSEL CHAUHAN CEA CO HOS CO HOS BILIRUBIN 35313 [employer], [employer], DIRECT 2 PAPER PRODUCTS PRINTER PAPER PRODUCTS PRINTER GISSEL CHAUHAN CO HOS CO HOS CUSHN A7032 AMAYA AMAYA NASAL 2 HOME HOME MASK MEDICAL MEDICAL INTERFACE EQUIPME EQUIPME REPLACEME NT ONLY EACH URNLS DIP 05840 CANDIDA TIRADO 2 Aug STICK/TAB LET RGNT [...] MEDICAL AIRWAY EQUIPME EQUIPME PRESSURE DEVICE INITIAL 02310 CANDIDA TIRADO OBSERVATI 2 Aug ON CARE/DAY 50 MINUTES ADMN SET A7003 YOUR YOUR SM VOL 2 PHARMACY PHARMACY NONFILTR LLC LLC PNEUMAT NEBULIZR DISPBL OBSERVATI 01483 CANDIDA TIRADO ON CARE 2 Aug DISCHARGE MANAGEMEN T RADIOLOGI 68785 [facility] C EXAM 2 SABA CHEST 2 RADIOLOGY VIEWS ASSOCIAT FRONTAL&L ATERAL MRI 92935 [facility] SPINAL 2 CO [facility] LUMBAR W/O CONTRAST MATERIAL GASTRIC 89538 [facility] [place] CISCO EMPTYING 2 RADIOLOGY RHO IMAGING STUDY POSITIONA 11449 RICHARD GRE RICHARD GRE L 2 NYSTAGMUS TEST SINUSOIDA 85684 RICHARD GRE RICHARD GRE L 2 VERTICAL AXIS ROTATIONA L TESTING NRV CNDJ 91369 RICHARD JIMMY BRONSONK GRE AMPLITUDE 2 & LATENCY EACH NERVE SENSORY CALORIC 32655 RICHARD JIMMY BRONSONK GRE VESTIBULA 2 R TEST EA IRRIGATIO N W/RECORD OPTKINETI 00169 RICHARD JIMMY BRONSONK GRE C NYSTAG 2 BIDIR/FOV EAL/PERIP H STIM W/REC SPONTANEO 93798 RICHARD JIMMY RICHARD GRE US 2 NYSTAGMUS [...] YOUR SM VOL 2 PHARMACY PHARMACY NONFILTR [employer] PNEUMAT NEBULIZR DISPBL POLYSOM 20425 [employer], [employer], 6/>YRS 2 PAPER PRODUCTS PRINTER PAPER PRODUCTS PRINTER SLEEP GISSEL CHAUHAN W/CPAP CO HOS CO HOS 4/> ADDL LAURA ATTND ADMN SET A7003 YOUR YOUR SM VOL 2 PHARMACY PHARMACY [employer]FIL[employer] [place] [address] [facility] INFUSION 2 [facility] THERAPY INC INC PROPHYLAX IS/DX EA HOUR ANESTH 19675 [facility] 2 ANESTH C OF THE [place] [address] [facility] INFUSION 2 [facility] THERAPY/P INC INC ROPHYLAXI S /DX 1ST TO 1 HR ARTHROSCO 22250 [facility] LEIV[facility] PY KNEE 2 [facility] SYNOVECTO INC INC MY LIMITED SPX THERAPEUT 93804 [facility] LEIV[facility] IC 2 [facility] INJECTION INC INC IV PUSH EACH NEW DRUG BLOOD 04496 [facility] LE[facility] COUNT 2 [facility] COMPLETE INC INC AUTO&AUTO DIFRNTL WBC RADIOLOGI 95815 [facility] C EXAM 2 [facility] CHEST 2 INC INC VIEWS FRONTAL&L ATERAL BASIC 59202 [facility] LEIV[facility] METABOLIC 2 [facility] PANEL INC INC CALCIUM TOTAL RADEX 54930 [facility], SPINE 2 PAPER PRODUCTS PRINTER PAPER PRODUCTS PRINTER LUMBOSACR GISSEL CHAUHAN AL CO HOS CO HOS MINIMUM 4 VIEWS URNLS DIP 31254 CANDIDA TIRADO 2 Aug STICK/TAB LET RGNT NON-AUTO W/O MICRSCP POLYSOM 11767 [facility], 6/>YRS 2 PAPER PRODUCTS PRINTER PAPER PRODUCTS PRINTER SLEEP 4/> GISSEL CHAUHAN ADDL CO HOS CO HOS LAURA ATTND INJECTION J2550 [facility], 2 PAPER PRODUCTS PRINTER PAPER PRODUCTS PRINTER PROMETHAZ GISSEL CHAUHAN INE HCL CO HOS CO HOS UP TO 50 MG THERAPEUT 79921 [facility], IC 2 PAPER PRODUCTS PRINTER PAPER PRODUCTS PRINTER PROPHYLAC GISSEL CHAUHAN TIC/DX CO HOS CO HOS INJECTION SUBQ/IM COLONOSCO 92230 EVITA MARTINEZ- PY 2 SHRUTHI SHRUTHI W/BIOPSY NETO NETO SINGLE/MU LTIPLE ANES 99092 [place] ZIEMBROS[facility] LOWER 2 ANESTHESI I JR EDW INTESTINE A GROUP [place] [address] PATHOLOGY DOUGLAS SURG 2 & SABA PATHOLOGY CYTOLOGY LAB GROSS&AIYANA ROSCOPIC EXAM ECG 90076 TURNER ESTEFANY TURNER ESTEFANY ROUTINE 2 ECG W/LEAST 12 LDS I&R ONLY RADIOLOGI 93057 [facility], C 2 PAPER PRODUCTS PRINTER PAPER PRODUCTS PRINTER EXAMINATI GISSEL CHAUHAN ON KNEE CO HOS CO HOS 1/2 VIEWS ADMN SET A7003 YOUR YOUR SM VOL 2 PHARMACY PHARMACY NONFILTR [facility] PNEUMAT NEBULIZR DISP HOSPITAL 15801 CANDIDA TIRADO DISCHARGE 2 Aug DAY MANAGEMEN T 30 MIN/< SBSQ 54896 [facility] 2 Aug CARE/DAY 15 MINUTES SBSQ 75030 [facility] 2 Aug CARE/DAY 25 MINUTES GLUC BLD 54448 CANDIDA TIRADO GLUC MNTR 2 Aug DEV CLEARED FDA SPEC HOME USE MAX 05059 CANDIDA TIRADO BREATHING 2 Aug CAPACITY MAXIMAL VOLUNTARY VENTJ RADIOLOGI 62801 [facility] C EXAM 2 EIDER GIOVANNA CHEST 2 RADIOLOGY VIEWS ASSOCIAT FRONTAL&L ATERAL STRAPPING 00408 [facility]ALE[facility] DE LEON 1 MIHAI MIHAI ELBOW/WRI ST ADMN SET A7003 YOUR YOUR SM VOL 1 PHARMACY PHARMACY NONFILTR [facility] PNEUMAT NEBULIZR DISPBL RADEX 62983 [facility] WRIST 1 EIDER GIOVANNA COMPLETE RADIOLOGY MINIMUM 3 ASSOCIAT VIEWS ADMN SET A7003 YOUR YOUR SM VOL 1 PHARMACY PHARMACY NONFILTR [facility] PNEUMAT NEBULIZR DISPBL DETERMINA 39822 [facility] 1 GRE GRE REFRACTIV E STATE OPHTH 40343 [facility] 1 GRE GRE XM&EVAL COMPRE NEW PT 1/> VST ADMN SET A7003 YOUR YOUR SM VOL 1 [facility] PNEUMAT NEBULIZR DISPBL US BREAST 14120 [facility] UNIVERS REAL 1 Y Y TIME [facility] W/IMAGE DOCUMENTA TION DIAGNOSTI G0204 [facility] C 1 Y Y MAMMOGRAP [facility] HY INCL CAD WHEN PERF; BILAT COMPUTER- 08104 [facility] AIDED 1 Y Y DETECTION [facility] DX MAMMOGRAP HY ARTHROCEN 68579 ARIANA ALLEN 1 CLINIC MIHAI ASPIR&/IN PSC J MAJOR JT/BURSA W/O US ADMN SET A7003 YOUR YOUR SM VOL 1 PHARMACY PHARMACY NONFILTR [facility] PNEUMAT NEBULIZR DISPBL FILTER A7013 YOUR YOUR DISPOSABL 1 PHARMACY PHARMACY LLC LLC W/AREOSOL COMPRESS/ US GENERATOR KNEE L1830 GISSEL CHAUHAN ORTHOSIS 1 CO CO [facility] R CANVAS LONGTUDNL PREFAB RADIOLOGI 60299 GISSEL CHAUHAN C 1 CO CO EXAMINATI [facility] ON KNEE 3 VIEWS INJECTION J1885 GISSEL CHAUHAN 1 [facility] INE PER 15 MG APPLICATI 81384 GISSEL TIRADO ON SHORT 1 [facility] SPLINT CALF FOOT RADIOLOGI 07462 [facility] C EXAM 1 EIDER GIOVANNA KNEE RADIOLOGY COMPLETE ASSOCIAT 4/[place] [address] LABORATOR LABORATOR IRON 1 Y & Y & BIODIAGNO BIODIAGNO STICS STICS URNLS DIP 59105 SMITH SMITH 1 SOREN SOREN STICK/TAB LET RGNT AUTO W/O MICROSCOP Y CREATININ 47662 SMITH SMITH E OTHER 1 SOREN SOREN SOURCE BLOOD 12724 LABORATOR LABORATOR COUNT 1 Y & Y & COMPLETE BIODIAGNO BIODIAGNO AUTO&AUTO STICS STICS DIFRNTL WBC RENAL 73910 LABORATOR LABORATOR FUNCTION 1 Y & Y & PANEL BIODIAGNO BIODIAGNO STICS STICS IRON 86145 LABORATOR LABORATOR BINDING 1 Y & Y & CAPACITY BIODIAG[place] [address] LABORATOR LABORATOR PARATHORM 1 Y & Y & ONE BIODIAGNO BIODIAGNO STICS STICS 25 58314 LABORATOR LABORATOR HYDROXY 1 Y & Y & INCLUDES BIODIAGNO BIODIAGNO FRACTIONS [place] [address] LABORATOR LABORATOR FERRITIN 1 Y & Y & BIODIAGNO BIODIAGNO STICS STICS ADMN SET A7003 YOUR YOUR SM VOL 1 PHARMACY PHARMACY NONFILTR [employer] PNEUMAT NEBULIZR DISPBL RINGERS J7120 [facility] DHALIWAL LACTATE 1 CO [facility] UP TO 1000 CC INJECTION J1100 [facility] FRANKSMING 1 CO [facility] SONE SODIUM PHOSPHATE 1 MG INJECTION J2550 [facility] FRANKSMING 1 CO CO [facility] INE HCL UP TO 50 MG INJECTION J2405 [facility] FRANKSMING 1 CO CO [facility] ON HCL PER 1 MG INFUSION J7050 [facility] JACOBS NORMAL 1 CO [facility] SOLUTION 250 CC INJECTION J3010 [facility] FENTANYL [address] [facility] 0.1 MG UNCLASSIF J3490 [facility] IED DRUGS 1 CO [facility] CYSTOURET 73566 L[facility] LOPEZ HROSCOPY 1 SWAPNA SWAPNA W/DIL BLADDER GENERAL ANESTH ANES 75246 ARLENE FRANKSMING TRANSURET 1 CO CO [facility] W/URETHRO CYSTOSCOP Y NOS INJECTION J0744 JACOBS JACOBS 1 CO [facility] ACIN INTRAVENO US INFUS 200 MG INJECTION J2250 [facility] 1 CO CO [facility] HCL PER 1 MG X-RAY 71283 LOPE[facility] LOPEZ URINARY 1 SWAPNA SWAPNA TRACT EXAM WITH CONTRAST MATERIAL CYSTO 88683 [facility] LOPEZ BLADDER 1 SWAPNA SWAPNA W/URETERA L CATHETERI ZATION BLOOD 38298 LAB [facility] LAB SHERI COUNT 1 AMERIC AMERIC COMPLETE HOLDING HOLDING AUTO&AUTO DIFRNTL WBC SPMTRY 62057 [facility] W/VC 1 TRACE BAN GET EXPIRATOR FAMILY Y RON HEALTH W/WO MXML VOL VNTJ NONINVASI 47451 [facility] III VE 1 TRACE CALVIN EAR/PULSE FAMILY OXIMETRY HEALTH SINGLE DETER COMPREHEN 69788 LAB [facility] LAB SH[facility]I SIVE 1 AMERIC AMERIC METABOLIC HOLDING HOLDING PANEL NELSON 28571 [facility] LOPE[facility] POST-VOID 1 SWAPNA SWAPNA ING RESIDUAL URINE&/BL ADDER CAP ADMN SET A7003 YOUR YOUR SM VOL 1 PHARMACY PHARMACY NONFILTR [facility] PNEUMAT NEBULIZR DISPBL INJECTION J2405 [facility] 1 CO [facility] PER 1 MG SLING 97138 L[facility] LOPEZ OPERATION 1 SWAPNA SWAPNA STRESS INCONTINE NCE ANES 84510 [facility] EXTRAPERI 1 CO [facility] L[facility] ABD W/URINARY TRACT NOS UNCLASSIF J3490 ISLETA JACOBS IED DRUGS 1 CO CO HOSPITAL HOSPITAL INJECTION J1885 [facility] 1 CO CO [facility] TROMETHAM INE PER 15 MG INJECTION J3010 [facility] FENTANYL 1 CO CO CITRATE [facility] 0.1 MG RINGERS J7120 [facility] LACTATE 1 CO CO [facility] UP TO 1000 CC INJECTION J0697 [facility] STERILE 1 CO CO CEFUROXIM [facility] E SODIUM PER 750 MG INJECTION J1100 [facility] 1 CO CO [facility]EXAMETHO [facility] SONE SODIUM PHOSPHATE 1 MG INJECTION J2175 [facility] 1 CO CO MEPERIDIN [facility] E HCL PER 100 MG INJECTION J0690 [facility] 1 CO CO [facility]OLIN [facility] SODIUM 500 MG INJECTION J2250 [facility] 1 [facility] HCL PER 1 MG CYSTOURET 09461 [facility] LOPEZ HROSCOPY 1 SWAPNA SWAPNA BASIC 73648 LAB SHERI LAB SHERI METABOLIC 1 AMERIC AMERIC PANEL HOLDING HOLDING CALCIUM TOTAL RADIOLOGI 53341 [facility] C EXAM 1 TRACE TRACE CHEST 2 FAMILY FAMILY VIEWS [facility] HEALTH FRONTAL&L ATERAL SPMTRY 19147 [facility] III W/VC 1 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 FAMILY Y RON HEALTH W/WO MXML VOL VNTJ NONINVASI 36473 [facility] III VE 1 TRACE [facility] EAR/PULSE FAMILY OXIMETRY HEALTH SINGLE DETER BLOOD 69739 LAB SHER[facility] LAB SHERI COUNT 1 AMERIC AMERIC COMPLETE HOLDING HOLDING AUTO&[place] [address] [facility] ABDOMEN & 1 CO CO [facility]ELVIS [facility] W/O CONTRST 1/> BODY RE RADEX 36539 [facility] ABDOMEN 1 1 CO CO [facility]OSPITAL [facility]OSPITAL ANTEROPOS TERIOR VIEW CYSTO 08096 [facility] LOPEZ CALIBRATI 1 SWAPNA SWAPNA ON DILAT URTL STRIX/NELLY NOSIS COLLECTIO 48693 [facility] N VENOUS 1 [facility] BLOOD [facility] VENIPUNCT URE BASIC 05085 [facility] METABOLIC 1 [facility] CALCIUM TOTAL CULTURE 03479 [facility] BACTERIAL 1 [facility] QUANTTATI VE COLONY COUNT URINE COMPLX 09115 [facility] CYSTOMETR 1 SWAPNA SWAPNA O W/VOID PRESS & URETHRAL PROFIL NELSNO 64156 [facility] POST-VOID 1 SWAPNA SWAPNA ING RESIDUAL URINE&/BL ADDER CAP VOID 51426 [facility] PRESSURE 1 SWAPNA SWAPNA STUDIES INTRAABDO SREE EMG STDS 10017 [facility] ANAL/URTL 1 SWAPNA SWAPNA SPHNCTR OTH/THN NDL COMPLEX 74992 [facility] UROFLOMET 1 SWAPNA SWAPNA RY ELECTRICA A4595 [facility] E[facility] INC L 1 STIMULATO R SUPPLIES 2 LEAD PER MONTH NELSON 96187 [facility] LOPE[facility] POST-VOID 1 SWAPNA SWAPNA ING RESIDUAL URINE&/BL ADDER CAP ADMN SET A7003 YOUR YOUR SM VOL 1 PHARMACY [facility] PNEUMAT NEBULIZR DISPBL URNLS DIP 66679 ARIANA TIRADO 1 CLINIC PARUL STICK/TAB PSC LET RGNT NON-AUTO W/O MICRSCP ARTHROCEN 56585 [facility] 1 [place] ASPIR&/IN ORTHOPAED ORTHOPAED J MAJOR ICS PLC ICS PLC JT/BURSA W/O US SUSCEPTBI 86698 GISSEL CHAUHAN LTY STDY 1 [facility] IAL AGNT AGAR DILUTJ CULTURE 11704 GISSEL CHAUHAN BACTERIAL 1 [facility] QUANTTATI VE COLONY COUNT URINE CULTURE 99586 GISSEL CHAUHAN BCT 1 [facility] ISOL&[facility] PTV ID ISOLATE EA URINE URNLS DIP 11622 GISSEL CHAUHAN 1 CO CO STICK/TAB HOSPITAL HOSPITAL LET REAGENT AUTO MICROSCOP Y NEUROPLAS 66102 [facility] TY 1 [place] &/TRANSPO ORTHOPAED S MEDIAN ICS PLC NRV CARPAL TUNNE TENDON 61219 [facility] SHEATH 1 [place] INCISION ORTHOPAED ICS PLC ANES 02535 [place] KEO ANT NERVE 1 ANESTHESI MUSCLE A GROUP TDN PSC FASCIA&BU RSA FOREARM WRIST ECG 54365 GISSEL CHAUHAN ROUTINE 1 CO [facility] W/LEAST 12 LDS TRCG ONLY W/O I&R COLLECTIO 03255 GISSEL Merida VENOUS 1 CO TX BLOOD [facility] VENIPUNCT URE BLOOD 09296 GISSEL CHAUHAN COUNT 1 CO CO COMPLETE [facility] AUTO&AUTO DIFRNTL WBC URNLS DIP 74883 GISSEL CHAUHAN 1 CO CO STICK/TAB [facility] HOSPITAL LET REAGENT AUTO MICROSCOP Y RADIOLOGI 46334 GISSEL Smith EXAM 1 CO CO CHEST [address] [place] [address] VIEWS FRONTAL&L ATERAL ECG 64102 RINALDINI RINALDINI ROUTINE 1 MELINDA MELINDA ECG W/LEAST 12 LDS I&R ONLY BASIC 54688 GISSEL CHAUHAN METABOLIC 1 CO CO PANEL [facility] CALCIUM TOTAL WRIST L3807 [employer] HAND 1 FINGR ORTHOS W/O JNT PREFAB CSTM FIT RADEX 45391 [facility] WRIST 1 [place] COMPLETE ORTHOPAED MINIMUM 3 ICS [facility] VIEWS WRIST L3908 [employer] HAND 1 ORTHOSIS EXT CONTROL COCK-UP PREFAB NRV CNDJ 77627 [facility] AMPLT&LAT 1 [facility]UR[facility]Y [facility] NRV MOTOR SYLVIA W/F-WAVE STD NRV CNDJ 83242 [facility] AMPLITUDE 1 [facility] LATENCY SYLVIA EACH NERVE SENSORY H-REFLEX 62128 [facility] AMPLT&LAT 1 NEUROLOGY [facility] GASTRCN/S SYLVIA OLEUS [facility] ADMN SET A7003 YOUR YOUR SM VOL 1 PHARMACY PHARMACY NONFILTR LLC LLC PNEUMAT NEBULIZR DISPBL 3D 87598 [facility] RENDERING 1 MEDICAL MEDICAL W/INTERP IMAGING IMAGING & ASS ASS POSTPROCE [place] 07811 ABBIE LEIVA SPINAL 1 [facility] CANAL INC INC LUMBAR W/O CONTRAST MATERIAL MRI 35713 [facility] LE[facility] SPINAL 1 [facility] CANAL INC INC CERVICAL W/O CONTRAST MATRL BLOOD 46645 GISSEL CHAUHAN COUNT 1 CO CO SMEAR [facility] MCRSCP W/[place] [address] GISSEL CHAUHAN INFUSION 1 CO CO THERAPY/P [facility] ROPHYLAXI S /DX 1ST TO 1 HR URNLS DIP 58239 GISSEL CHAUHAN 1 CO CO STICK/TAB [facility] LET REAGENT AUTO MICROSCOP Y THER 68249 GISSEL CHAUHAN PROPH/DX 1 CO CO NJX IV [facility] PUSH SINGLE/1S T SBST/[place] [address] GISSEL CHAUHAN INFUSION 1 CO CO HYDRATION [facility] INITIAL 31 MIN-1 HOUR COMPREHEN 32208 GISSEL CHAUHAN SIVE 1 CO CO METABOLIC [facility] PANEL COLLECTIO 19112 GISSEL CHAUHAN N VENOUS 1 CO CO BLOOD [facility] VENIPUNCT URE ADMN SET A7003 YOUR YOUR SM VOL 0 PHARMACY PHARMACY NONFILTR LLC LLC PNEUMAT NEBULIZR DISPBL PHYSICAL 24001 JACOBS JACOBS THERAPY 0 CO CO EVALUATIO [facility] N APPLICATI 78244 JACOBS JACOBS ON 0 CO CO SURFACE [facility] NEUROSTIM ULATOR TENS E0730 [facility] INC EMPI INC DEVICE 0 4/MORE LEADS MULTI NERVE STIMULATI ON MOLEC SEP 86643 UNIVERS UNIVERS GEL 0 Y Y ELECTROPH [facility] ORESIS EACH PREPJ MOLEC 52057 UNIVERS UNIVERS ISOL/XTRJ [address] [facility] NUCLEIC ACID EA TYPE MOLEC 10264 [facility] MUTATION 0 Y Y ID [facility] SEQUENCIN G 1 SGM EA SGM MOLECULAR 57944 [facility] 0 Y Y DIAGNOSTI [facility] CS INTERPRET ATION & REPORT MOLECULAR 24570 [facility] DX 0 Y Y AMPLIFICA [facility] TION TARGET EA SEQUENCE ADMN SET A7003 YOUR YOUR SM VOL 0 PHARMACY PHARMACY NONFILST. [facility] PNEUMAT NEBULIZR DISPBL MAMMOGRAP 35657 [place] ACUNA SABA HIC GID 0 MEDICAL NEEDLE SERV PLACEMENT FOUNDATIO T BREAST MASTECTOM 73269 [place] ALVARADO Y PARTIAL 0 MEDICAL HEA SERV FOUNDATIO ANES 09398 [place] W[place] INTEG 0 MEDICAL R GIOVANY EXTREMITI SERV ES ANT FOUNDATIO TRUNK & PERINEUM NOS RADIOLOGI 28099 [place] ANN MOL TRAVIS 0 MEDICAL EXAMINATI SERV [place] [address] [place] ANN MOL SURG 0 MEDICAL PATHOLOGY SERV FOUNDATIO GROSS&AIYANA ROSCOPIC EXAM PREOP 02090 [place] ACUNA SABA PLACEMENT 0 MEDICAL SERV LOCALIZAT FOUNDATIO ION WIRE BREAST BLOOD 86800 [facility] COUNT 0 Y Y COMPLETE [facility] AUTOMATED COLLECTIO 58450 [facility] N VENOUS 0 Y Y BLOOD [facility] VENIPUNCT URE BASIC 60016 [facility] METABOLIC 0 Y Y PANEL [facility] CALCIUM TOTAL ECG 86517 [facility] ROUTINE 0 Y Y ECG [facility] W/LEAST 12 LDS TRCG ONLY W/O I&R BREAST 84915 [facility] BIOPSY 0 Y Y VACUUM [facility] ASSISTED/ ROTATING DEVICE IMG GID 62825 [facility] PLRI MTLC 0 Y [facility] CLIP PR[place] BRST BX/[place] [address] [facility] SURG 0 Y Y PATHOLOGY [facility] GROSS&AIYANA ROSCOPIC EXAM STRTCTC 36460 [facility] 0 Y Y GID [facility] BREAST BX/NEEDLE PLACEMENT RADIOLOGI 18297 [facility] TRAVIS 0 Y Y EXAMINAGREAT [facility] ON SURGICAL SPECIMEN DIAGNOSTI G0204 [facility] C 0 Y Y MAMMOGRAP [facility] HY INCL CAD WHEN PERF; BILAT US BREAST 96896 [facility] REAL 0 Y Y TIME [facility] W/IMAGE DOCUMENTA TION ADMN SET A7003 YOUR YOUR SM VOL 0 PHARMACY PHARMACY NONFILTR [employer] [facility] PNEUMAT NEBULIZR DISPBL UROGRAPHY 82890 MARY ELSA IV W/WO 0 CALVIN KUB W/WO RADIOLOGY TOMOGRAPH ASSOCIAT Y US BREAST 53605 KNIGHTSEN HUNTER REAL 0 CALVIN TIME RADIOLOGY W/IMAGE ASSOCIAT DOCUMENTA TION ADMN SET A7003 YOUR YOUR SM VOL 0 PHARMACY PHARMACY NONFILTR LLC LLC PNEUMAT NEBULIZR DISPBL ADMN SET A7003 YOUR YOUR SM VOL 0 PHARMACY PHARMACY NONFILTR [facility] PNEUMAT NEBULIZR DISPBL MAMMOGRAP 37943 GISSEL CHAUHAN HY 0 [facility] MAMMOGRAP 44493 G[facility]SEL CHAUHAN HY 0 CO [facility] SCREENING 37158 KNIGHTSEN ZHANG, 0 MC S MAMMOGRAP RADIOLOGY HY BILATERAL ASSOCIATE S PSC RADEX 32626 NATALIIAAMINTA HUNTER, RIBS UNI 0 KORTNEY C W/POSTERO RADIOLOGY ANT CH MINIMUM 3 ASSOCIATE VIEWS S PSC RADEX 79555 NATALIIAAMINTA HUNTER, FINGR 0 KORTNEY C MINIMUM 2 RADIOLOGY VIEWS ASSOCIATE S PSC ADMN SET A7003 YOUR YOUR SM VOL 0 PHARMACY PHARMACY NONFILTR [facility] PNEUMAT NEBULIZR DISPBL ADMN SET A7003 YOUR YOUR SM VOL 0 PHARMACY PHARMACY NONFILTR [facility] PNEUMAT NEBULIZR DISPBL LIPID 60042 [facility] PANEL 0 [facility] HEPATIC 89941 [facility] FUNCTION [address] BONE 81255 BETY ELY 9 JEAN ALVARADO M.D.P.S.C STUDY 1/> [place] [address] GISSEL CHAUHAN INFUSION 9 CO CO [facility] /DX 1ST TO 1 HR DEMO&/LURDES 92670 GISSEL CHAUHAN L OF PT 9 CO CO UTILIZ [facility] AERSL GEN/NEB/I NHLR/IP MANJ 37012 GISSEL CHAUHAN CHEST 9 [facility] FACILITAT E LUNG FUNCTION SUBSQ DEMO&/LURDES 62974 GISSEL CHAUHAN L OF PT 9 CO CO UTILIZ [facility] AERSL GEN/NEB/I NHLR/IP MANJ 78715 GISSEL CHAUHAN CHEST 9 CO [facility] [place] [address] GISSEL CHAUHAN INFUSION 9 CO CO [facility]DX 1ST TO 1 HR ECG 53662 ZENON YARBROUGH ROUTINE 9 , DEEPAK , DEEPAK ECG W/LEAST 12 LDS I&R ONLY RADIOLOGI 34881 GISSEL CHAUHAN C EXAM 9 CO CO CHEST 2 [facility] VIEWS FRONTAL&[place] [address] GISSEL CHAUHAN INFUSION 9 CO CO [facility]APY/[facility] /DX 1ST TO 1 HR PRESSURIZ 95430 GISSEL CHAUHAN ED/NONPRE 9 CO CO SSURIZED [facility] INHALATIO N TREATMENT BLOOD 21815 GISSEL CHAUHAN COUNT 9 CO CO COMPLETE [facility] AUTO&AUTO DIFRNTL WBC BLOOD 98583 GISSEL CHAUHAN COUNT 9 CO CO SMEAR [facility] MCRSCP W/[place] [address] GISSEL CHAUHAN INFUSION 9 CO CO THERAPY [facility] PROPHYLAX IS/DX EA HOUR BASIC 31578 GISSEL CHAUHAN METABOLIC 9 CO CO PANEL [facility] CALCIUM TOTAL COLLECTIO 95818 GISSEL Merida VENOUS 9 CO CO BLOOD [facility] 81148 ZENON YARBROUGH DISCHARGE 9 , DEEPAK , DEEPAK DAY MANAGEMEN T 30 MIN/< NONINVASI 73628 GISSEL CHAUHAN VE 9 CO CO EAR[facility] OXIMETRY SINGLE DETER PRESSURIZ 34677 GISSEL CHAUHAN ED/NONPRE 9 CO CO SSURIZED [facility] INHALATIO N TREATMENT BLOOD 46336 GISSEL CHAUHAN COUNT 9 [facility] AUTO&AUTO DIFRNTL WBC NONINVASI 96605 GISSEL CHAUHAN VE 9 CO CO E[facility] H[facility] [place] [address] GISSEL CHAUHAN AMYLASE 9 [place] [address] GISSEL CHAUHAN LIPASE 9 CO CO [facility]PITAL [facility]PITAL ECG 00556 GISSEL CHAUHAN ROUTINE 9 CO CO ECG [facility] W/LEAST 12 LDS TRCG ONLY W/O I&R DEMO&/LURDES 56605 GISSEL CHAUHAN L OF PT 9 CO CO UTILIZ [facility] AERSL GEN/NEB/I NHLR/IP HOSPITAL G0378 GISSEL CHAUHAN OBSERVATI 9 CO CO ON HOSPITAL HOSPITAL SERVICE PER HOUR COMPREHEN 58113 GISSEL CHAUHAN SIVE 9 CO CO METABOLIC [facility]OSP[facility] PANEL RADEX ABD 38598 [facility] COMPL 9 EIDER, AQT ABD RADIOLOGY LEON W/S/E/D K VIEWS 1 [place] [address] [place]ONE ANES&/STR [address] D JT NRV SURGERY SURGERY LMBR/SAC CENTER CENTER 1 LVL INJECTION 34945 JENNIFER LLAMAS, OF LOWER 9 TRACEY ALVARADO [facility] SPINAL . JOINT OR NERVE FLUOR 06727 JENNIFER LLAMAS NEEDLE/CA 9 TRACEY ALVARADO [facility] SPINE/PAR . ASPINAL DX/THER ADDON URNLS DIP 50917 GISSEL CHAUHAN 9 CO CO STICK/[facility] HOSPITAL [place] [address] GISSEL CHAUHAN INFUSION 9 CO CO NEK [facility] INITIAL 31 MIN-1 HOUR IADNA NOS 88347 [facility] 9 DIAGNOSTI DIAGNOSTI AMPLIFIED CS CS PROBE TQ EACH ORGANISM THER 30675 GISSEL CHAUHAN PROPH/DX 9 CO CO NJX [facility] PUSH SINGLE/1S T SBST/DRUG ADMN SET A7003 YOUR YOUR SM VOL 9 PHARMACY PH[facility]Y [facility] PNEUMAT NE[place]ULIZR DISPBL [place] ANY 23096 KATJA C TYRONE, JT LOWER 9 TYRONE KATJA EXTREM W/O CONTRAST MATRL RADEX 52442 GISSEL CHAUHAN ANKLE 9 CO CO [facility] MINIMUM 3 VIEWS ADMN SET A7003 YOUR YOUR SM VOL 9 PHARMACY PH[facility] PNEUMAT NEBULIZR DISPBL LUMB-SACR L0637 [facility] ORTHOS 9 BRACING BRACING [employer] CNTR[employer] RIGD A&P PREFAB RADEX 91136 GISSEL CHAUHAN SPINE 9 CO CO [facility] AL MINIMUM 4 VIEWS MRI 82321 KATJA C TYRNOE, SPINAL 9 TYRONE KATJA CANAL LUMBAR W/O CONTRAST MATERIAL 3D 60136 KATJA C TYRONE, RENDERING 9 TYRONE KATJA W/INTERP & POSTPROCE SS SUPERVISI ON ADMN SET A7003 YOUR YOUR SM VOL 9 PHARMACY PHARMACY [employer] [facility] PNEUMAT NEBULIZR DISPBL VIRUS 61783 [facility] 9 [place] [facility] E ENHNCD ID IMFLUOR STAIN EA CT LUMBAR [id number] MARY MERCEDESMAN, SPINE 9 MC S W/O RADIOLOGY CONTRAST MATERIAL ASSOCIATE S PSC 3D 30359 GISSEL CHAUHAN RENDERING 9 CO CO W/INTERP [facility] & POSTPROCE SS SUPERVISI ON ADMN SET A7003 YOUR YOUR SM VOL 9 PHARMACY PHARMACY [employer] [facility] PNEUMAT NEBULIZR DISPBL NON-INVAS 95052 ABBIE LEIVA YVETTE 9 [facility] PHYSIOLOG INC INC IC STUDY EXTREMITY 3 LEVLS RADIOLOGI 54771 Sarah WEBBER 9 MC S EXAMINATI RADIOLOGY ON CHEST SINGLE ASSOCIATE VIEW S PSC FRONTAL ADMN SET A7003 YOUR YOUR SM VOL 9 PHARMACY PHARMACY NONFILTR [employer] [facility] PNEUMAT NEBULIZR DISPBL LIPID 93405 [facility] OF [facility] OF PANEL 9 [facility] INC [facility] INC ECG 31340 LICKING MCKEMIE ROUTINE 9 VALLEY JR, ECG INTERNAL ROSITA F W/LEAST MED 12 LDS W/I&R NONINVASI 62577 LICKING BESSON, VE 9 VALLEY WILLIAM A EAR/PULSE INTERNAL OXIMETRY MED SINGLE DETER RADIOLOGI 74036 GISSEL CHAUHAN C EXAM 9 CO TX CHEST [address] [place] [address] HOSPITAL VIEWS FRONTAL&L ATERAL ADMN SET A7003 YOUR YOUR SM VOL 9 PHARMACY PHARMACY NONFILTR [employer] [facility] [place] [address] PATHOLOGY PATHOLOGY SURG 8 & & PATHOLOGY CYTOLOGY CYTOLOGY LAB LAB GROSS&AIYANA ROSCOPIC EXAM ADMN SET A7003 YOUR YOUR SM VOL 8 PHARMACY PHARMACY NONFILAmerican Biosurgical [facility] PNEUMAT NEBULIZR DISPBL EXC B9 91709 RINALDINI RINALDINI LESION 8 , DEEPAK , DEEPAK [facility] SK TG T/A/L 0.5 CM/< EXC B9 36063 GISSEL CHAUHAN LESION 8 CO [facility] SK TG T/A/L 2.1-3.0 CM PHYSICAL 27262 GISSEL CHAUHAN THERAPY 8 CO TX EVALUATIO [facility] N THERAPEUT 40129 GISSEL CHAUHAN IC PX 1/> 8 CO TX AREAS [facility] EACH 15 MIN EXERCISES RADEX 11574 GISSEL CHAUHAN SPINE 8 CO TX CERVICAL [facility] 4 OR 5 VIEWS COLSC FLX 08197 BUSHRA CAMARILLO, 8 MEDICAL DENNIS W/REMOVAL SERV LESION FOUNDATIO [place] [address] ABBIE LEIVA THER 8 [facility] PROPH/DX INC [place] 1ST >1 [place] L[place] [address] PATHOLOGY PATHOLOGY SURG 8 & & PATHOLOGY CYTOLOGY CYTOLOGY LAB LAB GROSS&AIYANA ROSCOPIC EXAM [ENDOSCOP 4836 ABBIE LEIVA IC] 8 [facility] POLYPECTO INC INC MY OF RECTUM ADMN SET A7003 YOUR YOUR SM VOL 8 PHARMACY PHARMACY NONFILTR LLC LLC PNEUMAT NEBULIZR DISPBL THER 37105 GISSEL CHAUHAN PROPH/DX 8 CO TX NJX [facility] SUBQ/IM BLOOD 23557 GISSEL CHAUHAN COUNT 8 CO CO COMPLETE [facility] AUTO&AUTO DIFRNTL WBC URNLS DIP 19108 GISSEL CHAUHAN [address] [place] [address] STICK/TAB [facility]PITAL LET REAGENT AUTO MICROSCOP Y BASIC 61934 GISSEL CHAUHAN METABOLIC [address] [place] [address] CALCIUM TOTAL COLLECTIO 43677 GISSEL CHAUHAN N VENOUS [address] [place] [address] VENIPUNCT URE ANTIBODY 12521 GISSEL CHAUHAN HELICOBAC 8 [facility] PYLORI BASIC 27636 [facility] OF METABOLIC 8 [facility] PANEL CALCIUM TOTAL HEMOGLOBI 72733 [facility] OF N 8 [facility] GLYCOSYLA KAMLA A1C LIPID 58882 [facility] PANEL 8 [facility] HEPATIC 07060 [facility] FUNCTION 8 [facility] PANEL COLLECTIO 23532 RINALDINI MIAHALDINI N VENOUS 8 , DEEPAK , [place] B[place] [address] [facility] THYROID 8 [facility] STIMULATI NG HORMONE TSH ADMN SET A7003 YOUR YOUR SM VOL 8 PHARMACY PHARMACY NONFILTR [employer] PNEUMAT NEBULIZR DISPBL SPCL STN 82548 PATHOLOGY PATHOLOGY 2 I&R 8 & & EXCPT CYTOLOGY CYTOLOGY MICROORG/ LAB LAB ENZYME/IM CYT EGD 67920 ABBIE LEIVA TRANSORAL 8 [facility] BIOPSY INC INC SINGLE/[place] [address] ABBIE LEIVA THER 8 [facility] PROPH/DX INC [place] 1ST >1 [place] L[place] [address] PATHOLOGY PATHOLOGY SURG 8 & & PATHOLOGY CYTOLOGY CYTOLOGY LAB LAB GROSS&AIYANA ROSCOPIC EXAM ESOPHAGOG 4516 ABBIE LEIVA ASTRODUOD 8 [facility] ENOSCOPY INC INC WITH CLOSED BIOPSY GENERAL 74230 [facility]ALTH 8 [facility] [place] [address] [facility] THYROID 8 [facility] STIMULATI NG HORMONE TSH NATRIURET 29081 [facility] SABRINA QUEST SABRINA IC 8 [facility] BLOOD 85039 [facility] OF COUNT 8 [facility] COMPLETE AUTO&AUTO DIFRNTL WBC LIPID 42622 [facility] PANEL 8 [facility] Encounters Encounter Start End Date Code Location Performer Type Date [facility] - 7 7 [facility] T [facility]84 [facility] PH[facility] T VISIT S GROUP 25 MINUTES [facility] - 7 7 [facility] ABBIE - 7 7 [facility] T [facility]ICE 09048 ABBIE ORTEGA 7 7 [facility] T VISIT INC 10 MINUTES HOSPITAL ABBIE - 7 7 [facility] OUTPATIEN [facility] T EMERGENCY 43304 [facility] 7 7 [facility] EMERGENC[facility] T VISIT PHYS MODERATE SEVERITY HOSPITAL ABBIE - 7 7 [facility] OUT[facility] INC T OFFICE 91139 DEMETRA CORTE[facility] 6 6 [facility] T VISIT 15 MINUTES HOSPITAL ABBIE - 6 6 [facility] OUT[facility] INC T OFFICE 61403 ABBIE ORTEGA 6 6 [facility] T VISIT INC 10 MINUTES HOSPITAL ABBIE - 6 6 [facility] OUTPATIEN INC [facility] ABBIE - 6 6 [facility] OUT[facility]EN [facility] ABBIE - 6 6 [facility] OUTPATIEN INC T OFFICE 33438 DEMETRA CORTEZ [facility] 6 6 [facility] T VISIT 15 MINUTES OFFICE 85638 AB[facility]E OUTPATIEN 6 6 [facility] T VISIT INC 10 MINUTES HOSPITAL ABBIE - 6 6 [facility] T OFFICE 04377 [facility] 6 6 [facility] T VISIT INC 10 MINUTES HOSPITAL JACOBS - [address] [facility] [address] [place] [address] T OFFICE 34112 [facility] 6 6 [facility] T VISIT MEDICAL 15 G MINUTES OFFICE 86473 [facility] CONSULTAT 6 6 [facility] NEW/ESTAB PLLC PATIENT 60 MIN OFFICE 63434 [facility] CHAIDEZ [facility] 6 6 PHYSICIAN NHAN T NEW 20 S GROUP MINUTES OFFICE 43920 [facility] 6 6 NE [facility]ALTH CAR T NEW 30 MEDICAL MINUTES G EMERGENCY 58556 [facility] 6 6 [facility] EMERGENCY T VISIT PHYS HIGH/URGE NT SEVERITY HOSPITAL ABBIE - 6 6 [facility]EN [facility] T OFFICE 61819 [facility] 6 6 [facility] T VISIT INC 10 MINUTES OFFICE 82790 [facility] 6 6 PHYSICIAN T VISIT S GROUP 10 MINUTES OFFICE 93489 MINERVA MELO [facility] 6 6 W R IV STELLA T VISIT PHYSICIAN 25 PRACTIC MINUTES [facility] 6 [facility] T OFF[facility] 20380 MINERVA MELO OUTPATIEN 6 6 W R IV STELLA T VISIT PHYSICIAN 25 PRACTIC MINUTES HOSPITAL ABBIE - 6 6 [facility] OUTPATIEN INC T OFFICE 61794 ABBIE OUTPATIEN 6 6 [facility] T VISIT INC 10 MINUTES OFFICE 13577 MINERVA ORELLANAE OUTPATIEN 6 6 W R IV STELLA T NEW 60 PHYSICIAN MINUTES PRACTIC OFFICE 35579 [facility] OUTPATIEN 6 6 PHYSICIAN STONE T VISIT S GROUP GEOVANNY HOLM 15 MINUTES EMERGENCY 70809 [facility] 6 6 EMILY PHI DEPARTMEN EMERGENCY T VISIT PHYS HIGH/URGE NT SEVERITY [facility]OSPITAL ABBIE - 6 6 [facility] ABBIE - 6 6 [facility] T OFFICE 38034 ABBIE OUTPATIEN 6 6 [facility] T VISIT INC 10 MINUTES HOSPITAL ABBIE - 6 6 [facility] ABBIE - 6 6 [facility] OUTPATIEN [facility] EMERGENCY 01016 [facility] EMILY VISIT EMERGENCY HIGH PHYS SEVERITY& THREAT FUNC OFFICE 18878 [facility] OUTPATIEN 6 6 [facility] T VISIT INC 10 MINUTES HOSPITAL ABBIE - 6 6 [facility] OUTPATIEN INC T OFFICE 38395 [facility] MO[facility] OUTPATIEN 6 6 PHYSICIAN AIYANA T VISIT S GROUP 10 MINUTES OFFICE 02086 [facility] OUTPATI[facility] 6 6 PHYSICIAN AIYANA T VISIT S GROUP 15 MINUTES HOSPITAL ABBIE - 5 5 [facility] OUTPATIEN INC T OFFICE 28378 ABBIE OUTPATIEN 5 5 [facility] T VISIT INC 10 MINUTES HOSPITAL ABBIE - 5 5 [facility] OUTPATIEN INC T OFFICE 22110 [facility] OUTPATIEN 5 5 PHYSICIAN JAM T NEW 30 S GROUP MINUTES HOSPITAL ABBIE - 5 5 [facility] OUTPATIEN INC T OFFICE 52034 [facility] OUTPATIEN 5 5 PHYSICIAN AIYANA T VISIT S GROUP 25 MINUTES HOSPITAL ABBIE - 5 5 [facility] OUTPATIEN INC T OFFICE 98799 [facility] OUTPATIEN 5 5 [facility] T VISIT INC 10 MINUTES HOSPITAL ABBIE - 5 5 [facility] OUTPATIEN INC T OFFICE 70068 [facility] OUTPATIEN 5 5 PHYSICIAN AIYANA T VISIT S GROUP 25 MINUTES OFFICE 51137 [facility] OUTPATIEN 5 5 PHYSICIAN AIYANA T VISIT S GROUP 15 MINUTES EMERGENCY 09355 [facility] MOTAL[facility] DEPT 5 5 EMILY MOH VISIT EMERGENCY HIGH PHYS SEVERITY& THREAT FUN EMERGENCY 77029 [place] 5 5 [facility] T VISIT HIGH/URGE NT SEVERITY HOSPITAL ISLETA - 5 5 [facility] T OFFICE 51261 [facility] 5 5 MD BENJAMIN, T VISIT PSC 10 MINUTES HOSPITAL JACOBS - 5 5 [facility] HOSPITAL ISLETA - 5 5 [facility] T OFFICE 00631 [facility] OUTPATIEN 5 5 PHYSICIAN AIYANA T VISIT S GROUP 15 MINUTES HOSPITAL JACOBS - 5 5 [facility] T EMERGENCY 14675 [facility] 5 5 EMILY DEPARTMEN EMERGENCY T VISIT PHYS HIGH/URGE NT SEVERITY EMERGENCY 18693 [facility] 5 5 [facility] T VISIT MODERATE SEVERITY OFFICE 06749 JACOBS DEMOYA OUTPATIEN 5 5 CO HOSP LIAM T VISIT 15 MINUTES OFFICE 48048 DEMETRA CALHOUNX BUX ANJ OUTPATIEN 5 5 MD T NEW 30 MINUTES HOSPITAL ABBIE - 5 5 [facility] OUTPATIEN INC T OFFICE 08199 AB[facility]E OUTPATIEN 5 5 [facility] T VISIT INC 10 MINUTES OFFICE 14237 [facility] OUTPATI[facility] 5 5 PHYSICIAN AIYANA T VISIT S GROUP 15 MINUTES OFFICE 12430 [facility] OUTPATIEN 5 5 PHYSICIAN AIYANA T VISIT S GROUP 25 MINUTES HOSPITAL JACOBS - 5 5 [facility] T EMERGENCY 26085 [facility] 5 5 EMILY [facility] EMER[facility]ENC[facility] T VISIT PHYS HIGH/URGE NT SEVERITY OFFICE 49390 [facility] OUTPATIEN 5 5 PHYSICIAN AIYANA T VISIT S GROUP 15 MINUTES OFFICE 75814 [facility] OUTPATIEN 5 5 PHYSICIAN AIYANA T VISIT S GROUP 25 MINUTES OFFICE 57308 [facility] OUTPATIEN 5 5 PHYSICIAN AIYANA T NEW 30 S GROUP MINUTES EMERGENCY 81219 JACOBS 5 5 [facility] T VISIT HIGH/URGE NT SEVERITY HOSPITAL JACOBS - 5 5 [facility] T EMERGENCY 18808 [facility] 5 EMILY JAM VISIT EMERGENCY HIGH PHYS SEVERITY& THREAT FUNCJ OFFICE 70401 BELEN JARAMILLO OUTPATIEN 5 5 [facility] T VISIT [facility] 15 MINUTES HOSPITAL JACOBS - 5 5 [facility] T OFFICE 52240 EDNAGIOKLEVER KOO OUTPATIEN 5 5 Y [facility]ICAL [facility] T VISIT CLINIC 15 MINUTES OFFICE 74295 [place] ANGEL CONSULTAT 5 5 MEDICAL III THO ION SERV NEW/ESTAB FOUNDATIO PATIENT N 60 MIN OFFICE 32951 BELEN JARAMILLO OUTPATIEN 5 5 [facility] ANA T VISIT PSC 25 MINUTES OFFICE 69491 ALMAZ HAYES OUTPATIEN 4 4 Y [facility]ICAL [facility] T VISIT CLINIC 15 MINUTES HOSPITAL ARLENE - 4 4 [facility] T OFFICE 99197 BELEN Quiros [facility] OUTPATIEN 4 4 [facility] ANA T VISIT PSC 15 MINUTES OFFICE 24460 GIOVANNY HAM GIOVANNY HAM OUTPATIEN 4 4 T VISIT 15 MINUTES OFFICE 23985 ARIANA DIAZ- OUTPATIEN 4 4 [facility] [place] T VISIT 15 MINUTES OFFICE 33036 GIOVANNY HAM GIOVANNY HAM OUTPATIEN 4 4 T VISIT 15 MINUTES OFFICE 37370 GIOVANNY HAM GIOVANNY HAM OUTPATIEN 4 4 T VISIT 15 MINUTES HOSPITAL JACOBS - 4 4 [facility] HOSPITAL JACOBS - 4 4 [facility] T OFFICE 22939 ARIANA DIAZ- OUTPATIEN 4 4 [facility] [place] T VISIT 15 MINUTES OFFICE 39515 [place] COLES OUTPATIEN 4 4 CO [facility] LAR T VISIT 15 MINUTES HOSPITAL JACOBS - OTHER 4 4 CO HOSPITAL OFFICE 18566 ARIANA DIAZ- OUTPATIEN 4 4 [facility] [place] T VISIT 15 MINUTES OFFICE 57697 ARIANA DIAZ- OUTPATIEN 4 4 [facility] [place] T VISIT 15 MINUTES OFFICE 42749 GIOVANNY HAM GIOVANNY HAM OUTPATIEN 4 4 T VISIT 15 MINUTES OFFICE 12816 [place] FELIPENS OUTPATIEN 4 4 CO HOSP LAR T VISIT 15 MINUTES OFFICE 04051 ARIANA DIAZ- OUTPATIEN 4 4 [facility] [place] T VISIT 15 MINUTES HOSPITAL ABBIE - 4 4 [facility] T OFFICE 48608 ARIANAARLEN DE LEON OUTPATIEN 4 4 CLINIC MIHAI T VISIT 15 MINUTES OFFICE 31759 GIOVANNY DEBRA GIOVANNY HAM OUTPATIEN 4 4 T VISIT 15 MINUTES OFFICE 57658 ARIANA DIAZ- OUTPATIEN 4 4 [facility] [place] T VISIT 15 MINUTES HOSPITAL GEORGEW - 4 4 N [facility] - 4 4 [facility] - 4 4 N [facility] 16160 GIOVANNY DEBRA GIOVANNY HAM OUTPATIEN 4 4 T VISIT 15 MINUTES OFFICE 16578 ARIANA OUTPATIEN 4 4 CLINIC T VISIT 25 MINUTES OFFICE 55352 GIOVANNY HAM GIOVANNY HAM OUTPATIEN 4 4 T VISIT 15 MINUTES OFFICE 01827 [facility] CHAIDEZ OUTPATIEN 4 4 NHAN NHAN T VISIT 15 MINUTES OFFICE 48984 ARIANA DIAZ- OUTPATIEN 4 4 [facility] [place] T VISIT 25 MINUTES OFFICE 22736 SANKET FELIPENS OUTPATIEN 4 4 LAR LAR T VISIT 5 MINUTES HOSPITAL [facility] - 4 4 [facility] JACOBS - 4 4 [facility] JACOBS - 4 4 [facility] EMERGENC[facility] 35231 JACOBS 4 4 CO [facility] T VISIT HIGH/URGE NT SEVERITY EMERGENCY 54394 SADEK MOH SADEK [facility] DEPT 4 4 VISIT HIGH SEVERITY& THREAT [facility] JACOBS - 4 4 CO [facility] T OFFICE 34942 SANKET GUAJARDOARNS OUTPATIEN 4 4 LAR LAR T NEW 30 MINUTES OFFICE 73745 ARIANA OUTPATIEN 4 4 CLINIC T VISIT 15 MINUTES HOSPITAL MHC INC, - 4 4 [employer] PR[employer] OUTPATI GISSEL T [facility] OFFICE 78469 GIOVANNY DEBRA BALTAZAR HAM OUTPATIEN 4 4 T VISIT 15 MINUTES OFFICE 08760 [facility] CHAIDEZ OUTPATIEN 4 4 NHAN NHAN T NEW 30 MINUTES EMERGENCY 54025 VALENTINO AVELAR DEPT 4 4 Oct VISIT HIGH SEVERITY& THREAT [facility] JACOBS - 4 4 CO [facility] T EMERGENCY 90922 JACOBS 4 4 [facility] T VISIT HIGH/URGE NT SEVERITY OFFICE 71753 GIOVANNY DEBRA BALTAZAR HAM OUTPATIEN 4 4 T VISIT 15 MINUTES OFFICE 83150 ARIANA KENYA OUTPATIEN 4 4 CLINIC HEN T VISIT 15 MINUTES HOSPITAL GEORGETOW - 4 4 N OUTPATIEN COMMUNTIY T HOSPITA OFFICE 04739 GIOVANNY DEBRA BALTAZAR HAM OUTPATIEN 4 4 T VISIT 15 MINUTES HOSPITAL UNIVERSIT - 4 4 [facility] OFFICE 32053 MANDY GALVAN OUTPATIEN 4 4 LIAM LIAM T VISIT 15 MINUTES OFFICE 41228 GIOVANNY RICHARDSON OUTPATIEN 4 4 T VISIT 15 MINUTES HOSPITAL [facility]ERS[facility] - 3 3 [facility] T OFFICE 06347 UNIVERSIT OUTPATIEN 3 3 Y T VISIT HOSPITAL 10 MINUTES OFFICE 97961 MANDY GALVAN OUTPATIEN 3 3 LIAM LIAM T VISIT 15 MINUTES OFFICE 58498 GIOVANNY RICHARDSON OUTPATIEN 3 3 T VISIT 15 MINUTES OFFICE 55121 ARIANA CARLOS OUTPATIEN 3 3 [facility] [place] T VISIT 25 MINUTES EMERGENCY 77220 KILEY CAO DEPT 3 3 STELLA STELLA VISIT HIGH SEVERITY& THREAT FUNCJ OFFICE 78084 GIOVANNY RICHARDSON OUTPATIEN 3 3 T VISIT 15 MINUTES EMERGENCY 18502 [place] 3 3 [facility] T VISIT HIGH/URGE NT SEVERITY HOSPITAL [place] - 3 3 [facility] T EMERGENCY 58889 JESSE AVELAR DEPT 3 3 EMERGENCY MAR VISIT SERVICES HIGH SEVERITY& THREAT FUNCJ EMERGENCY 81282 [place] 3 3 [facility] T VISIT HIGH/URGE NT SEVERITY EMERGENCY 45382 KILEY CAO DEPT 3 3 STELLA STELLA VISIT HIGH SEVERITY& THREAT FUN [facility]OSPITAL [place] - 3 3 [facility] T EMERGENCY 86446 SOKAN BAB SOKAN BAB 3 3 [facility] T VISIT HIGH/URGE NT SEVERITY OFFICE 62985 GIOVANNY RICHARDSON OUTPATIEN 3 3 T VISIT 15 MINUTES HOSPITAL ABBIE - 3 3 [facility] OUTPATIEN INC T OFFICE 16584 BUSHRA CAMARILLO MOIRA OUTPATIEN 3 3 MEDICAL T VISIT SERV 25 FOUNDATIO MINUTES N OFFICE 18491 GIOVANNY BALTAZAR HAM OUTPATIEN 3 3 T VISIT 15 MINUTES HOSPITAL [facility], - 3 3 [employer] PRINTER OUTPATIEN GISSEL T CO HOS OFFICE 32051 GIOVANNY RICHARDSON OUTPATIEN 3 3 T NEW 45 MINUTES HOSPITAL [facility], - 3 3 [employer] PR[employer] OUTPATIEN GISSEL T CO HOS OFFICE 70539 ARIANAARLEN ZAMBRANO OUTPATIEN 3 3 CLINIC HEN T VISIT 15 MINUTES HOSPITAL CENTRAL - 3 3 [facility] OUT[facility]OSP T OFFICE 66515 MAHNAZ JR JOYA JR OUTPATIEN 3 3 SOREN SOREN T NEW 45 MINUTES OFFICE 37295 HARPEL HARPEL OUTPATIEN 3 3 KELLY KELLY T VISIT 15 MINUTES OFFICE 16965 ARIANA ZAMBRANO OUTPATIEN 3 3 CLINIC HEN T VISIT 15 MINUTES HOSPITAL ABBIE - 3 3 [facility] OUTPATIEN INC T INITIAL 06513 HARPEL HARPEL PREVENTIV 3 3 KELLY KELLY E MEDICINE NEW PATIENT 40-64YRS OFFICE 27895 CAMARILLO MOIRA CAMARILLO MOIRA OUTPATIEN 3 3 T VISIT 25 MINUTES OFFICE 97677 ARIANA DIAZ- OUTPATIEN 3 3 [facility] [place] T VISIT 15 MINUTES EMERGENCY 58063 JESSE KIMBALL DEPT 3 3 EMERGENCY ROLON VISIT SERVICES HIGH SEVERITY& THREAT FUNJ OFFICE 47085 ARIANA DIAZ- OUTPATIEN 3 3 [facility] [place] T VISIT 15 MINUTES OFFICE 29071 CANDIDA TIRADO OUTPATIEN 3 3 Aug T VISIT 15 MINUTES OFFICE 34508 ERIBERTOFuad ERIBERTOFuad OUTPATIEN 3 3 Aug T VISIT 25 MINUTES HOSPITAL [facility] - 3 3 [facility] T OFFICE 03797 CANDIDA WEIFuad OUTPATIEN 3 3 Aug T VISIT 25 MINUTES OFFICE 28731 CAMARILLO MOIRA CAMARILLO [facility] T VISIT 15 MINUTES HOSPITAL ABBIE - 3 3 [facility] - 3 3 [facility] T OFFICE 69098 MANDY GALVAN [facility] 3 3 LIAM LIAM T VISIT 10 MINUTES OFFICE 92081 [facility] 3 3 Y T VISIT HOSPITAL 25 MINUTES OFFICE 70107 CAMARILLO MOIRA CAMARILLO [facility] 3 T VISIT 25 MINUTES HOSPITAL ABBIE - 3 3 [facility] T OFFICE 85122 CANDIDA WEIFuad OUTPATIEN 3 3 Aug T VISIT 25 MINUTES HOSPITAL UNIVERSIT - 3 3 Y [facility] T OFFICE 73825 ERIBERTOFuad ERIBERTOFuad OUTPATIEN 3 3 Aug T VISIT 25 MINUTES HOSPITAL [facility], - 3 3 [employer] PRINTER [facility] HOS OFFICE 99514 NOEMI FRANKLIN JR CONSULTAT 3 3 ION NEW/ESTAB PATIENT 60 MIN OFFICE 01182 SAVANNAHANDRIYFuad TIRADO OUTPATIEN 3 3 Aug T VISIT 25 MINUTES OFFICE 73470 SAVANNAHANDRIYFuad TIRADO OUTPATIEN 3 3 Aug T VISIT 15 MINUTES OFFICE 73780 CANDIDA TIRADO OUTPATIEN 3 3 Aug T VISIT 25 MINUTES HOSPITAL ABBIE - 3 3 [facility] T OFFICE 16065 RABIA PIZARRO [facility] 3 3 T VISIT 40 MINUTES OFFICE 80756 MANDY KEANEO [facility] 3 3 LIAM LIAM T VISIT 25 MINUTES HOSPITAL UNIVERSIT - 3 3 Y [facility] UNIVERS[facility] - 2 2 Y [facility] T OFF[facility] 10556 [facility] 2 2 Y T NEW 60 HOSPITAL MINUTES OFFICE 48055 MANDYStef GALVAN [facility] 2 2 LIAM LIAM T NEW 45 MINUTES HOSPITAL UNIVERSIT - 2 2 Y [facility] T EMERGENCY 84701 ZEHRA SHAHID DEPT 2 2 MAT MAT VISIT HIGH SEVERITY& THREAT FUN EMERGENCY 95313 [facility], 2 2 PAPER PRODUCTS PRINTER DEPARTMEN GISSEL T VISIT CO HOS LIMITED/M INOR PROB EMERGENCY 08163 KIERSTEN KIERSTEN 2 2 HEN HEN DEPARTMEN T VISIT HIGH/URGE NT SEVERITY HOSPITAL [facility], - 2 2 PAPER PRODUCTS PRINTER [facility] T CO [facility] 12816 [facility] 2 2 Y T VISIT HOSPITAL 15 MINUTES HOSPITAL [facility]ERS[facility] - 2 2 Y [facility] 62232 SHIRLEY WHEELER CONSULTAT 2 2 ION NEW/ESTAB PATIENT 80 MIN OFFICE 04332 CANDIDA WEIFuad OUTPATIEN 2 2 Aug T VISIT 25 MINUTES EMERGENCY 59209 KIERSTEN BURCH 2 2 HEN HEN MEN T VISIT MODERATE SEVERITY HOSPITAL [facility], - 2 2 PAPER PRODUCTS PRINTER OUTPATIEN GISSEL T CO HOS [facility], - 2 2 PAPER PRODUCTS PRINTER OUTPATIEN GISSEL T CO HOS OFFICE 91844 CANDIDA WEIFuad OUTPATIEN 2 2 Aug T VISIT 25 MINUTES HOSPITAL [facility], - 2 2 PAPER PRODUCTS PRINTER OUTPATIEN GISSEL T CO HOS OFFICE 15837 CAMARILLO MOIRA [facility]A OUTPATIEN 2 2 T VISIT 15 MINUTES HOSPITAL [facility], - 2 2 PAPER PRODUCTS PRINTER OUTPATIEN GISSEL T CO HOS EMERGENCY 36966 CANDIDA WEIFuad 2 2 Aug DEPARTMEN T VISIT MODERATE SEVERITY HOSPITAL [facility], - 2 2 PAPER PRODUCTS PRINTER OUTPATIEN GISSEL T CO HOS OFFICE 28086 CAMARILLO MOIRA CAMARILLO MOIRA CONSULTAT 2 2 ION NEW/ESTAB PATIENT 60 MIN OFFICE 88810 ALLRAN JR ALLRAN JR CONSULTAT 2 2 STELLA STELLA ION NEW/ESTAB PATIENT 60 MIN OFFICE 83910 CANDIDA WEIFuad OUTPATIEN 2 2 Aug T VISIT 25 MINUTES EMERGENCY 20692 NEERAJ DIAMOND DEPT 2 2 VISIT HIGH SEVERITY& THREAT FUNCJ OFFICE 28200 CANDIDA WEIFuad OUTPATIEN 2 2 Aug T VISIT 25 MINUTES HOSPITAL [facility] - 2 2 PAPER PRODUCTS PRINTER OUTPATIEN GISSEL [facility], - 2 2 PAPER PRODUCTS PRINTER OUTPATIEN GISSEL T CO HOS OFFICE 87675 CANDIDA WEIN OUTPATIEN 2 2 Aug T VISIT 25 MINUTES OFFICE 35598 [facility] E[facility] OUTPATIEN 2 2 Aug T VISIT 25 MINUTES OFFICE 93217 BUD PHI BUD PHI CONSULTAT 2 2 ION NEW/ESTAB PATIENT 40 MIN OFFICE 31050 CANDIDA WEIN OUTPATIEN 2 2 Aug T VISIT 15 MINUTES OFFICE 22688 CANDIDA WEIN OUTPATIEN 2 2 Aug T VISIT 15 MINUTES HOSPITAL JACOBS - 2 2 [facility] - 2 2 [facility] T OFFICE 99263 HALEY DE LEON OUTPATIEN 2 2 MIHAI MIHAI T VISIT 25 MINUTES OFFICE 27129 MARTINEZ- MARTINEZ- OUTPATIEN 2 2 SHRUTHI SHRUTHI T VISIT NETO NETO 15 MINUTES OFFICE 40930 [facility] OUTPATIEN 2 2 Aug T VISIT 15 MINUTES OFFICE 93238 RICHARD GRE RICHARD GRE OUTPATIEN 2 2 T NEW 45 MINUTES HOSPITAL [facility], - 2 2 PAPER PRODUCTS PRINTER OUTPATI [facility] OFFICE 88670 ERIBERTON ERIBERTON OUTPATIEN 2 2 Aug T VISIT 15 MINUTES HOSPITAL ABBIE - 2 2 [facility] T OFFICE 75251 PETTEY PETTEY OUTPATIEN 2 2 JAM JAM T VISIT 15 MINUTES [facility]OSPITAL [facility] - 2 2 [facility] T OFFICE 61281 MARTINEZ- MARTINEZ- OUTPATIEN 2 2 SHRUTHI SHRUTHI T VISIT NETO NETO 15 MINUTES OFFICE 91008 ERI[facility]ERTON ERI[facility]ERTON OUTPATIEN 2 2 Aug T VISIT 15 MINUTES [facility]PITAL [facility], - 2 2 PAPER PRODUCTS PRINTER OUTPATIEN GISSEL T CO HOS OFFICE 93745 TAMAREN SAVANNAHAREN OUTPATIEN 2 2 Aug T VISIT 25 MINUTES OFFICE 33195 PETTEY PETTEY OUTPATIEN 2 2 GIGI YU T VISIT 15 MINUTES HOSPITAL [facility], - 2 2 PAPER PRODUCTS PRINTER OUTPATIEN GISSEL T CO HOS OFFICE 83750 PETTEY PETTEY OUTPATIEN 2 2 GIGI YU T NEW 20 MINUTES EMERGENCY 22137 KIERSTEN KIERSTEN 2 2 HEN HEN DEPARTMEN T VISIT MODERATE SEVERITY EMERGENCY 25545 [facility], 2 2 PAPER PRODUCTS PRINTER DEPARTMEN GISSEL T VISIT CO HOS HIGH/URGE NT SEVERITY HOSPITAL [facility], - 2 2 PAPER PRODUCTS PRINTER OUTPATIEN GISSEL T CO HOS OFFICE 81482 E[facility]ERT[facility] ERI[facility]ERT[facility] OUTPATIEN 2 2 Aug T VISIT 25 MINUTES OFFICE 00353 ERI[facility]ERT[facility] SAVANNAHAREN OUTPATIEN 2 2 Aug T VISIT 15 MINUTES HOSPITAL [facility], - 2 2 PAPER PRODUCTS PRINTER OUTPATIEN GISSEL T CO HOS OFFICE 26301 ERI[facility]ERT[place] SAVANNAHAREN OUTPATIEN 2 2 Aug T VISIT 15 MINUTES OFFICE 47567 TAMAREN TAMAREN OUTPATIEN 2 2 Aug T VISIT 25 MINUTES HOSPITAL GISSEL - 2 2 [facility] T OFFICE 34514 JUAN- MARTINEZ- OUTPATIEN 2 2 SHRUTHI SHRUTHI T NEW 30 NETO NETO MINUTES HOSPITAL GISSEL - 1 1 [facility] T OFFICE 60642 HALEY DE LEON OUTPATIEN 1 1 MIHAI MIHAI T VISIT 15 MINUTES HOSPITAL UNIVERSIT - 1 1 Y [facility] T OFFICE 81720 UNIVERSIT OUTPATIEN 1 1 Y T VISIT HOSPITAL 15 MINUTES OFFICE 30990 ARIANA DE LEON OUTPATIEN 1 1 CLINIC MIHAI T VISIT PSC 15 MINUTES OFFICE 83993 SMITH SMITH OUTPATIEN 1 1 SOREN SOREN T VISIT 15 MINUTES OFFICE 79347 ARIANA WEIFuad OUTPATIEN 1 1 CLINIC PARUL T VISIT PSC 25 MINUTES EMERGENCY 99585 GISSEL 1 1 [facility] T VISIT MODERATE SEVERITY HOSPITAL GISSEL - 1 1 [facility] T EMERGENCY 81527 GISSEL 1 1 [facility] T VISIT LIMITED/M INOR PROB OFFICE 28050 SMITH SMITH OUTPATIEN 1 1 SOREN SOREN T NEW 45 MINUTES OFFICE 51845 [facility] [place] 1 [place] V[place] ORTHOP[facility]ED 15 [facility] ISLETA - 1 1 [facility] T OFFICE 09961 BUFFALO BORDEN III OUTPATIEN 1 1 TRACE CALVIN T VISIT [facility] 15 [facility] ISLETA - 1 1 [facility] T OFFICE 58467 BUFFALO BORDEN III OUTPATIEN 1 1 TRACE CALVIN T [facility] 45 [facility] ISLETA - 1 1 [facility] H[facility]PITAL ISLETA - 1 1 [facility] T OFFICE 17176 LOPEZ LOPEZ OUTPATIEN 1 1 SWAPNA SWAPNA T NEW 45 MINUTES OFFICE 69477 ARIANA NUÑEZLEBRON OUTPATIEN 1 1 CLINIC PARUL T NEW 30 PSC MINUTES HOSPITAL GISSEL - 1 1 [facility] T EMERGENCY 25781 GISSEL 1 1 [facility] T VISIT LIMITED/M INOR PROB HOSPITAL GISSEL - 1 1 [facility] T OFFICE 33235 [facility]PAT[place] 1 1 [place] VISIT ORTHOPAED 15 [facility] MINUTES OFFICE 32134 RINALDINI RINALDINI OUTPATIEN 1 1 MELINDA MELINDA T VISIT 15 MINUTES OFFICE 66977 [facility] 1 1 [place] ION ORTHOPAED NEW/ESTAB [facility] PLC PATIENT 40 MIN OFFICE 45374 RINALDINI RINALDINI OUTPATIEN 1 1 MELINDA MELINDA T VISIT 15 MINUTES [facility]OSP[facility] - [facility] 41119 [facility] 1 1 [facility] C[facility] NEW/ESTAB SYLVIA PATIENT 80 MIN HOSPITAL GISSEL - 1 1 [facility] T EMERGENCY 00960 GISSEL 1 1 [facility] T VISIT LOW/MODER SEVERITY EMERGENCY 95388 GISSEL YARBROUGH 1 1 [facility] T VISIT MODERATE SEVERITY OFFICE 09144 RINALDINI RINALDINI OUTPATIEN 1 1 MELINDA MELINDA T VISIT 15 MINUTES OFFICE 54219 RINALDINI RINALDINI OUTPATIEN 1 1 MELINDA MELINDA T VISIT 15 MINUTES OFFICE 66738 [facility]MS[facility] BRYANT OUTPATIEN 1 1 NURSE JAM T NEW 45 PRACTITIO MINUTES [facility] HOSPITAL JACOBS - 0 0 [facility] T OFFICE 08234 RINALDINI RINALDINI OUTPATIEN 0 0 MELINDA MELINDA T VISIT 15 MINUTES HOSPITAL UNIVERSIT - 0 0 Y [facility] T OFFICE 86990 [place] [facility] CONSULTAT 0 0 MEDICAL MAR ION SERV NEW/ESTAB FOUNDATIO PATIENT 60 MIN OFFICE 72881 UNIVERSIT OUTPATIEN 0 0 Y T [facility] UNIVERSIT - 0 0 Y [facility] T OFFICE 33892 [place] ALVARADO CONSULTAT 0 0 MEDICAL HEA ION SERV NEW/ESTAB FOUNDATIO PATIENT 60 MIN HOSPITAL UNIVERSIT - 0 0 Y [facility] T OFFICE 17232 UNIVERSIT OUTPATIEN 0 0 Y T [address] MINUTES OFFICE 10564 RINALDINI RINALDINI OUTPATIEN 0 0 MELINDA MELINDA T VISIT 15 MINUTES OFFICE 08609 RINALDINI RINALDINI OUTPATIEN 0 0 MELINDA MELINDA T VISIT 15 MINUTES [facility] UNIVERSIT - 0 0 Y [facility] UNIVERSIT - 0 0 Y [facility] T OFFICE 86556 RINALDINI RINALDINI OUTPATIEN 0 0 MELINDA MELINDA T VISIT 10 MINUTES OFFICE 83712 RINALDINI RINALDINI OUTPATIEN 0 0 MELINDA MELINDA T VISIT 10 MINUTES EMERGENCY 01073 RINALDINI RINALDINI 0 0 MELINDA MELINDA DEPARTMEN T VISIT MODERATE SEVERITY OFFICE 41019 RINALDINI RINALDINI OUTPATIEN 0 0 MELINDA MELINDA T VISIT 25 MINUTES OFFICE 38543 RINALDINI RINALDINI OUTPATIEN 0 0 MELINDA MELINDA T VISIT 15 MINUTES EMERGENCY 69691 RINALDINI RINALDINI 0 0 MELINDA MELINDA DEPARTMEN T VISIT MODERATE SEVERITY OFFICE 92472 RINALDINI RINALDINI OUTPATIEN 0 0 , DEEPAK , DEEPAK T VISIT 15 MINUTES HOSPITAL JACOBS - 0 0 [facility] T OFFICE 10073 RINALDINI RINALDINI OUTPATIEN 0 0 , DEEPAK , DEEPAK T VISIT 15 MINUTES HOSPITAL GISSEL - 0 0 [facility] T OFFICE 96969 RINALDINI RINALDINI OUTPATIEN 0 0 , DEEPAK , DEEPAK T VISIT 15 MINUTES HOSPITAL GISSEL - 0 0 [facility] T OFFICE 10061 RINALDINI RINALDINI OUTPATIEN 0 0 , DEEPAK , DEEPAK T VISIT 10 MINUTES OFFICE 33563 RINALDINI RINALDINI OUTPATIEN 0 0 , DEEPAK , DEEPAK T VISIT 15 MINUTES HOSPITAL GISSEL - 0 0 [facility] T OFFICE 03036 RINALDINI RINALDINI OUTPATIEN 0 0 , DEEPAK , DEEPAK T VISIT 10 MINUTES OFFICE 43453 RINALDINI RINALDINI OUTPATIEN 0 0 , DEEPAK , DEEPAK T VISIT 15 MINUTES OFFICE 62991 RINALDINI RINALDINI OUTPATIEN 0 0 , DEEPAK , DEEPAK T VISIT 15 MINUTES OFFICE 87813 RINALDINI RINALDINI OUTPATIEN 0 0 , DEEPAK , DEEPAK T VISIT 15 MINUTES OFFICE 52846 RINALDINI RINALDINI OUTPATIEN 0 0 , DEEPAK , DEEPAK T VISIT 15 MINUTES OFFICE 93784 RINALDINI RINALDINI OUTPATIEN 0 0 , DEEPAK , DEEPAK T VISIT 15 MINUTES OFFICE 76291 [facility] CONSULT[facility] 9 9 STACIE ALARCON ION EYEHLTH & NEW/ESTAB SURG PSC PATIENT 40 MIN OFFICE 63375 RINTORSTENINI RINTORSTENINI OUTPATIEN 9 9 , MELINDA SOTELO M T VISIT 10 MINUTES OFFICE 37440 RINALDINI RINALDINI OUTPATIEN 9 9 , MELINDA SOTELO T VISIT 15 MINUTES OFFICE 05547 JENNIFER LLAMAS, OUTPATIEN 9 9 TRACEY ALVARADO Morenita T VISIT [facility] 25 . MINUTES OFFICE 76905 GISSEL OUTPATIEN 9 9 CO T VISIT 5 HOSPITAL MINUTES HOSPITAL GISSEL - 9 9 [facility] T HOSPITAL GISSEL - 9 9 [facility] T OFFICE 96066 RINTORSTENINI AMYINI OUTPATIEN 9 9 , MELINDA SOTELO T VISIT 15 MINUTES HOSPITAL GISSEL - 9 9 [facility] T OFFICE 63107 GISSEL OUTPATIEN 9 9 CO T VISIT 5 HOSPITAL MINUTES EMERGENCY 53849 GISSEL 9 9 CO [facility] T VISIT LOW/MODER SEVERITY HOSPITAL GISSEL - 9 9 CO [facility] T EMERGENCY 33085 AMYINI RINALDINI 9 9 , MELINDA [facility] T VISIT MODERATE SEVERITY OFFICE 39652 RINTORSTENINI RINALDINI OUTPATIEN 9 9 , MELINDA SOTELO T VISIT 15 MINUTES HOSPITAL GISSEL - 9 9 CO [facility] T EMERGENCY 38178 GISSEL 9 9 [facility] T VISIT LIMITED/M INOR PROB HOSPITAL GISSEL - 9 9 CO [facility] T HOSPITAL GISSEL - 9 9 [facility] T OFFICE 99161 RINALDINI RINALDINI OUTPATIEN 9 9 , DEEPAK , DEEPAK T VISIT 25 MINUTES OFFICE 79808 GISSEL OUTPATIEN 9 9 CO T VISIT 5 HOSPITAL MINUTES OFFICE 85009 JENNIFER LLAMAS, OUTPATIEN 9 9 TRACEY ALVARADO [facility] 45 M.[facility] MINUTES . OFFICE 92441 RINALDINI RINALDINI OUTPATIEN 9 9 , DEEPAK , DEEPAK T VISIT 15 MINUTES OFFICE 02485 RINALDINI RINALDINI OUTPATIEN 9 9 , DEEPAK , DEEPAK T VISIT 15 MINUTES HOSPITAL GISSEL - 9 9 [facility] T OFFICE 30564 RINALDINI RINALDINI OUTPATIEN 9 9 , DEEPAK , DEEPAK T VISIT 10 MINUTES OFFICE 75992 [facility] PATEL CONSULTKEATON 9 9 MEDICAL CLEMENTE Chuy [facility] NEW/ESTAB FOUNDATIO PATIENT 40 MIN HOSPITAL GISSEL - 9 9 [facility] T OFFICE 88775 RINALDINI RINALDINI OUTPATIEN 9 9 , DEEPAK , DEEPAK T VISIT 10 MINUTES OFFICE 66258 RINALDINI RINALDINI OUTPATIEN 9 9 , DEEPAK , DEEPAK T VISIT 10 MINUTES OFFICE 99240 RINALDINI RINALDINI OUTPATIEN 9 9 , DEEPAK , DEEPAK T VISIT 15 MINUTES OFFICE 24363 RINALDINI RINALDINI OUTPATIEN 9 9 , DEEPAK , DEEPAK T VISIT 10 MINUTES OFFICE 55615 RINALDINI RINALDINI OUTPATIEN 9 9 , DEEPAK , DEEPAK T VISIT 10 MINUTES OFFICE 93357 RINALDINI RINALDINI OUTPATIEN 9 9 , DEEPAK , DEEPAK T VISIT 10 MINUTES HOSPITAL GISSEL - 9 9 [facility] T OFFICE 50221 RINALDINI RINALDINI OUTPATIEN 9 9 , DEEPAK , DEEPAK T VISIT 10 MINUTES HOSPITAL ABBIE - 9 9 [facility] 43303 RINALDINI RINALDINI OUTPATIEN 9 9 , DEEPAK , DEEPAK T VISIT 10 MINUTES OFFICE 73214 RINALDINI RINALDINI OUTPATIEN 9 9 , DEEPAK , DEEPAK T VISIT 10 MINUTES OFFICE 68954 RINALDINI RINALDINI OUTPATIEN 9 9 , DEEPAK , DEEPAK T VISIT 10 MINUTES OFFICE 69055 [facility] INDY OUTPATIEN 9 9 ORIANA DIGGS, T VISIT INTERNAL ROSITA F 15 MED MINUTES OFFICE 32269 [place] MITCHELL, OUTPATIEN 9 9 [place] VIKY T VISIT INTERNAL 15 MED MINUTES OFFICE 39258 [place] JANIS, OUTPATIEN 9 9 [place] WILLIAM A T NEW 30 INTERNAL MINUTES [facility] HOSPITAL GISSEL - 9 9 [facility] T OFFICE 45008 RINALDINI RINALDINI OUTPATIEN 9 9 , DEEPAK , DEEPAK T VISIT 10 MINUTES OFFICE 32770 RINALDINI RINALDINI OUTPATIEN 9 9 , DEEPAK , DEEPAK T VISIT 15 MINUTES OFFICE 04322 [place] CAMARILLO, OUTPATIEN 9 9 MEDICAL DENNIS T VISIT SERV 15 FOUNDATIO MINUTES HOSPITAL GISSEL - 8 8 [facility] HOSPITAL GISSEL - 8 8 [facility] T OFFICE 59145 RINALDINI RINALDINI OUTPATIEN 8 8 , DEEPAK , DEEPAK T VISIT 10 MINUTES HOSPITAL GISSEL [facility] 8 8 [facility] ABBIE - 8 8 [facility] T OFFICE 39488 [facility] CAMARILLO, OUTPATIEN 8 8 MEDICAL DENNIS T VISIT SERV 25 FOUNDATIO MINUTES OFFICE 52013 RINALDINI RINALDINI OUTPATIEN 8 8 , DEEPAK , DEEPAK T VISIT 10 MINUTES OFFICE 63914 BUSHRA CAMARILLO, OUTPATIEN 8 8 MEDICAL DENNIS T VISIT SERV 25 FOUNDATIO MINUTES OFFICE 14057 RINALDINI RINALDINI OUTPATIEN 8 8 , DEEPAK , DEEPAK T VISIT 10 MINUTES HOSPITAL GISSEL - 8 8 CO [facility] T EMERGENCY 42323 GISSEL 8 8 CO [facility] T VISIT LOW/MODER SEVERITY EMERGENCY 37582 [facility]SEL [facility] 8 8 CO , [facility] T VISIT LIMITED/M INOR PROB OFFICE 10493 RINALDINI RINALDINI OUTPATIEN 8 8 , DEEPAK , DEEPAK T VISIT 10 MINUTES OFFICE 13246 [facility] 8 8 MEDICAL YPARAG T VISIT SERV 15 FOUNDATIO MINUTES HOSPITAL ABBIE - 8 8 [facility] T OFFICE 26214 RINALDINI RINALDINI OUTPATIEN 8 8 , DEEPAK , DEEPAK T VISIT 10 MINUTES OFFICE 33263 MIAHALDINI RINALDINI OUTPATIEN 8 8 , DEEPAK , DEEPAK T VISIT 5 MINUTES OFFICE 59744 RINALDINI RINALDINI OUTPATIEN 8 8 , DEEPAK , DEEPAK T VISIT 10 MINUTES OFFICE 77086 RINALDINI RINALDINI OUTPATIEN 8 8 , DEEPAK , DEEPAK T VISIT 10 MINUTES OFFICE 71202 [facility] 15 MINUTES [facility]
--- OUTSIDE RECORDS SUMMARY | 2016-12-14 13:23 | External Medical Summary Rpt ---
Demographics Preferred Language Ugandan Marital Status Unknown Yarsanism Affiliation Unknown Race Unknown Ethnic Group Unknown Author Author , Organization [employer] Address Unknown Phone Unavailable Purpose Continuity of Care Document - through 2016 Immunization No patient found.
--- OUTSIDE RECORDS SUMMARY | 2016-12-14 13:23 | External Medical Summary Rpt ---
Demographics Preferred Language Kittitian Marital Status Unknown Jew Affiliation Unknown Race Unknown Ethnic Group Unknown Author Author , Organization [employer] Address Unknown Phone Unavailable Purpose Continuity of Care Document - through 2016 Immunization No patient found.
--- NOTE | 2016-12-14 13:30 | CARDIOVASCULAR REPORT ---
"Venous Exam Indications: 786.05 Shortness of breath. 729.81 Swelling of limb. IMPRESSIONS 1. There is no evidence of significant Reflux. 2. No evidence of deep or superficial vein thrombosis involving the left lower extremity Left lower extremity venous duplex evaluation. Doppler flow study including spectral analysis, color and mills scale imaging. Location: Vascular laboratory. Patient status: Emergency department. CRITICAL FINDINGS - Reported to: ED - Read back and verified. - 12/14/16 - 1315 - JONATHAN DA SILVA Tables: Venous flow and imaging: + +-------+ + |Location |Overall|Flow properties | + +-------+ + |Left common femoral |Patent |Normal phasicity; spontaneous; | | | |normal augmentation; compressible | + +-------+ + |Left saphenofemoral junction|Patent |Compressible | + +-------+ + |Left profunda femoral |Patent |Compressible | + +-------+ + |Left femoral |Patent |Normal phasicity; spontaneous; | | | |normal augmentation; compressible | + +-------+ + |Left greater saphenous |Patent |Normal phasicity; spontaneous; | | | |normal augmentation; compressible | + +-------+ + |Left popliteal |Patent |Normal phasicity; spontaneous; | | | |normal augmentation; compressible | + +-------+ + |Left posterior tibial |Patent |Compressible | + +-------+ + |Left peroneal |Patent |Compressible | + +-------+ + |Left gastrocnemius |Patent |Compressible | + +-------+ + |Left soleal |Patent |Compressible | + +-------+ + (Report amended ) Electronically signed by: Yung Slade [id number]"
--- NOTE | 2016-12-14 13:30 | CARDIOVASCULAR REPORT ---
"Venous Exam Indications: 786.05 Shortness of breath. 729.81 Swelling of limb. IMPRESSIONS 1. There is no evidence of significant Reflux. 2. No evidence of deep or superficial vein thrombosis involving the left lower extremity Left lower extremity venous duplex evaluation. Doppler flow study including spectral analysis, color and mills scale imaging. Location: Vascular laboratory. Patient status: Emergency department. CRITICAL FINDINGS - Reported to: ED - Read back and verified. - 12/14/16 - 1315 - JONATHAN DA SIVLA Tables: Venous flow and imaging: + +-------+ + |Location |Overall|Flow properties | + +-------+ + |Left common femoral |Patent |Normal phasicity; spontaneous; | | | |normal augmentation; compressible | + +-------+ + |Left saphenofemoral junction|Patent |Compressible | + +-------+ + |Left profunda femoral |Patent |Compressible | + +-------+ + |Left femoral |Patent |Normal phasicity; spontaneous; | | | |normal augmentation; compressible | + +-------+ + |Left greater saphenous |Patent |Normal phasicity; spontaneous; | | | |normal augmentation; compressible | + +-------+ + |Left popliteal |Patent |Normal phasicity; spontaneous; | | | |normal augmentation; compressible | + +-------+ + |Left posterior tibial |Patent |Compressible | + +-------+ + |Left peroneal |Patent |Compressible | + +-------+ + |Left gastrocnemius |Patent |Compressible | + +-------+ + |Left soleal |Patent |Compressible | + +-------+ + (Report amended ) Electronically signed by: Yung Slade [id number]"
--- NOTE | 2016-12-14 14:03 | RADIOLOGY REPORT PS360 ---
CHEST(2 VIEWS-NOT PORTABLE) HISTORY: Shortness of air SOA ORDERING PHYSICIAN: Carlos Alberto Pedroza MD PATIENT AGE: 51 years COMPARISON: 11/03/2011 FINDINGS: The cardiomediastinal silhouette and pulmonary vascularity are within normal limits. There is evidence of old granulomatous disease. There are minimal fibrotic changes in the left lung base. No lobar consolidation or collapse.. No acute bony abnormalities. IMPRESSION: No change with no acute finding, old granulomatous disease
--- NOTE | 2016-12-14 14:57 | RADIOLOGY REPORT PS360 ---
CTA-CHEST HISTORY: CHEST PAIN, DYSPNEA, HX CANCER THROID AND BREAST ORDERING PHYSICIAN: Carlos Alberto Pedroza MD PATIENT AGE: 51 years TECHNIQUE: Helical acquisition obtained following the bolus administration of 60 mL of Isovue 370 followed by a saline bolus. Axial, sagittal, and coronal reformatted images are generated and reviewed. COMPARISON: None FINDINGS: No evidence of pulmonary embolus. No evidence of aortic aneurysm or dissection. No mediastinal or hilar mass. Normal heart size. There are minimal fibrotic changes in the left lung base. Calcified granuloma is present in the right lower lobe. No lobar consolidation or collapse. There are 2 noncalcified nodules in the left lower lobe measuring 7 and 5 mm. These are along the major fissure and may be due to small lymph nodes within the fissure. Upper abdominal images showed diffuse hepatic steatosis with mild hepatomegaly. IMPRESSION: 1. No acute finding. 2. No evidence of pulmonary embolus or aortic aneurysm or dissection. 3. 2 noncalcified nodules in the left lower lobe probably related to fissural lymph nodes. 6 month follow-up may confirm short-term stability
--- NOTE | 2016-12-14 15:05 | Emergency Room Report ---
History of Present Illness Time Seen by [id number] Presenting Problem in Triage Pt arrived:Walked Presenting Problem:PT REPORTS SOA AND SWELLING IN REID HANDS AND FEET FOR A "COUPLE WEEKS". 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 N Clinical Suspician of Infection? N Mental Status: 1 - Regular (Normal Baseline) Sepsis Risk:Low Sepsis Risk Have you (or family members/close friends) recently traveled outside the [place]? N If Yes, where/when: Have you had exposure to infectious disease within the past month? N TB? Other? Specify: Source patient, RN notes reviewed, RN/MD Exam Limitations no limitations Comment This is a 51-year-old female patient presenting to the emergency room with LEFT leg pain, bilateral lower extremity swelling, chest pain for the past 3-4 weeks. She has seen her PCP recently who started her on Lasix, however without expected results. Patient denies any shortness of breath. Patient's pain appears to be pleuritic in nature, worse with deep inspiration, palpation of her anterior chest wall. She denies any previous similar symptoms in the past. ALLERGIES Coded Allergies: Penicillins (Severe, ANGIOADEMA, N/V 07/01/15) amoxicillin (Severe, SWELLING, SOB 07/01/15) clavulanic acid (Severe, SWELLING, SOB 07/01/15) erythromycin base (Severe, ANGIOEDEMA, N/V 07/01/15) morphine (Severe, R-EXVDSH-ZJDJ/THROAT 07/01/15) acetaminophen (Mild, GI UPSET 07/01/15) Home Medications Reported Medications Lorazepam (Ativan) 0.5 MG PO TID Furosemide 40 MG PO DAILY #30 Simvastatin 10 MG PO DAILY #30 Levothyroxine Sodium (Levothyroxine 0.175MG) 0.175 MG PO DAILY #30 Ropinirole Hydrochloride (Requip) 2 MG PO QHS Fenofibrate 54 MG PO QPM Escitalopram Oxalate (Lexapro 20MG) 20 MG PO DAILY Omeprazole (Prilosec 40mg Cap) 40 MG PO DAILY Cyclobenzaprine Hcl (Flexeril) 5 MG PO TID POTASSIUM CHL (Potassium Chloride) 20 MEQ PO DAILY History Medical History General CAD? No Angina: Yes VA: No Hypertension? Yes Hyperlipidemia? Yes CHF? No DVT? No PE? No COPD? Yes Asthma? No Anemia? No GERD? Yes Gastric ulcers? No GI Bleed? No Hernia? Yes Thyroid Problems? Yes Hypothyroidism? Yes CVA? No Seizures? Yes Diabetes? No Renal Insuffiency? No End Stage Renal Disease? No UTI? No Stones? No GB Disease: Yes Nephritic Syndrome? No Asplenia? No Hepatitis? No Sickle Cell Disease? No Arthritis? Yes Migraines? No Cataracts? No Glaucoma? No MRSA? No HIV? No TB? No Anxiety? Yes Depression? Yes Cancer? Yes Site: THYROID, BREAST More? 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 Hx LMP N/A Family History Family Hx Diabetes No CAD Yes Hypertension Yes Hyperlipidemia Yes Cancer Yes TB Yes Social History Smoking Hx Smoker: Current Every Day Smoker Tobacco: Yes Type Cigarettes Packs/day 1 1/2 - 2 Packs Alcohol Alcohol: No Review of Systems All Other Systems Reviewed and Negative Cardiovascular chest pain Musculoskeletal muscle pain (LEFT leg pain) Physical Exam Vital Signs Vital Signs Date Time Temp Pulse Resp B/P Pulse O2 O2 Flow FiO2 Ox Delivery Rate 12/14 1530 98.5 93 20 127/75 97 12/14 1353 78 20 125/77 100 12/14 1213 98.5 83 22 140/78 97 General Appearance normal appearance, WD/WN, no apparent distress Neck normal inspection, non-tender, supple, full range of motion Respiratory Status Yes: trachea midline, chest symmetrical, non tender chest. No: respiratory distress. Lung Sounds bilateral: normal breath sounds, lungs clear. 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 No Comment Upon reevaluation patient appears medically stable, clinically improving, minimally symptomatic. Advised patient to follow up with PCP early next week, if any recurrent symptoms. Results/Orders Laboratory Tests 12/14/16 1225: Sodium 140, Potassium 3.8, Chloride 104, Carbon Dioxide 30, BUN 7, Creatinine 0.8, Estimated Creat Clear 101, Estimated GFR (MDRD) 76, Glucose 99, Calcium 8.2 L, Total Bilirubin 0.2, AST 72 H, ALT 71, Alkaline Phosphatase 110, B- Natriuretic Peptide 6, Total Protein 7.1, Albumin 3.3 L, Globulin 3.8 H, Albumin/Globulin Ratio 0.9 L, D-Dimer < 100, WBC 10.1, RBC 4.62, Hgb 14.1, Hct 43.6, MCV 94.4, RDW 14.3, Plt Count 278, MPV 6.1 L, Gran % 59.5, Gran # 6.0, Lymphocytes % 34.8, Monocytes % 3.4, Eosinophils % 1.8, Basophils % 0.5, Lymphocytes # 3.5, Monocytes # 0.3, Eosinophils # 0.2, Basophils # 0.1, PUBS MCHC 32.5, MCH 30.6 Current Medication Orders Sig/Jairo Start time Last Medication Dose Route Stop Time Status Admin Iopamidol 75 ML ONCE ONE 12/14 1400 DC / IV 12/14 1401 1350 Sodium Chloride 20 ML ONCE ONE 12/14 1400 DC 05/ IV 12/14 1401 1350 Sodium Chloride 20 ML ONCE ONE 12/14 1400 DC 05/04 IV 12/14 1401 1350 Sodium Chloride 10 ML PRN PRN 12/14 1400 DC 05/ IV 12/14 1519 1350 Sodium Chloride 10 ML PRN PRN 12/14 1230 DCD IV 12/15 1225 Orders Procedure Date/time Status DIET-NOTHING BY MOUTH 12/[address] CHEST W/PE PROTOCOL REQ 12/14 1255 Complete VENOUS LOWER EXT LT 12/14 1254 Complete IV SALINE LOCK 12/14 1226 Active D-DIMER 12/14 1226 Complete CBC WITH AUTO DIFF 12/14 1226 Complete CHEM 12 PROFILE 12/14 1226 Complete BRAIN NATRIURETIC PEPTIDE 12/14 1226 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 of ischemic chgs, no ectopy, normal QRS, normal IA, no EKG for comparison, non-spec. ST/Twave chgs, ST elevation, ST depression, LBBB, RBBB, ectopy, abnormal Q waves XRAY/CT/US XRAY/CT/US 1 XRAY chest XR interpretation by reviewed by me, discussed w/radiologist Xray Results no infiltrates, normal heart size, normal lung inflation reid XRAY/CT/US [address] interpretation by discussed w/radiologist (PE protocol) CT Results abnormal Comment See radiologist report, no pulmonary embolus Ultrasound upper extremity (LEFT lower extremity) US Interpretation by discussed w/radiologist (venous Doppler) US results no DVT Departure Departure Time of Disposition 1504 Disposition DC Home or Self Care(routine) Clinical Impression Primary Impression: Chest pain Qualifiers: Chest pain type: unspecified Qualified Code: R07.9 - Chest pain, unspecified Secondary Impressions: Left leg pain Condition STABLE Referrals Ana Paula Trujillo (Family): Today after leaving ER Patient Instructions DI for Atypical Chest Pain, DI for Leg Pain Additional Instructions Please follow-up with your oncologist + with your PCP as previously scheduled. Discharge Counseling Counseled pt/family regarding diagnosis, test results, medications/RX, home care, follow up needs Comment Please follow-up with your oncologist + with your PCP as previously scheduled. ED Critical Care Critical Care No at 0112
--- NOTE | 2016-12-14 15:05 | Emergency Room Report ---
History of Present Illness Time Seen by [id number] Presenting Problem in Triage Pt arrived:Walked Presenting Problem:PT REPORTS SOA AND SWELLING IN REID HANDS AND FEET FOR A "COUPLE WEEKS". 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 N Clinical Suspician of Infection? N Mental Status: 1 - Regular (Normal Baseline) Sepsis Risk:Low Sepsis Risk Have you (or family members/close friends) recently traveled outside the [place]? N If Yes, where/when: Have you had exposure to infectious disease within the past month? N TB? Other? Specify: Source patient, RN notes reviewed, RN/MD Exam Limitations no limitations Comment This is a 51-year-old female patient presenting to the emergency room with LEFT leg pain, bilateral lower extremity swelling, chest pain for the past 3-4 weeks. She has seen her PCP recently who started her on Lasix, however without expected results. Patient denies any shortness of breath. Patient's pain appears to be pleuritic in nature, worse with deep inspiration, palpation of her anterior chest wall. She denies any previous similar symptoms in the past. ALLERGIES Coded Allergies: Penicillins (Severe, ANGIOADEMA, N/V 07/01/15) amoxicillin (Severe, SWELLING, SOB 07/01/15) clavulanic acid (Severe, SWELLING, SOB 07/01/15) erythromycin base (Severe, ANGIOEDEMA, N/V 07/01/15) morphine (Severe, L-HUHLSC-HCTX/THROAT 07/01/15) acetaminophen (Mild, GI UPSET 07/01/15) Home Medications Reported Medications Lorazepam (Ativan) 0.5 MG PO TID Furosemide 40 MG PO DAILY #30 Simvastatin 10 MG PO DAILY #30 Levothyroxine Sodium (Levothyroxine 0.175MG) 0.175 MG PO DAILY #30 Ropinirole Hydrochloride (Requip) 2 MG PO QHS Fenofibrate 54 MG PO QPM Escitalopram Oxalate (Lexapro 20MG) 20 MG PO DAILY Omeprazole (Prilosec 40mg Cap) 40 MG PO DAILY Cyclobenzaprine Hcl (Flexeril) 5 MG PO TID POTASSIUM CHL (Potassium Chloride) 20 MEQ PO DAILY History Medical History General CAD? No Angina: Yes IA: No Hypertension? Yes Hyperlipidemia? Yes CHF? No DVT? No PE? No COPD? Yes Asthma? No Anemia? No GERD? Yes Gastric ulcers? No GI Bleed? No Hernia? Yes Thyroid Problems? Yes Hypothyroidism? Yes CVA? No Seizures? Yes Diabetes? No Renal Insuffiency? No End Stage Renal Disease? No UTI? No Stones? No GB Disease: Yes Nephritic Syndrome? No Asplenia? No Hepatitis? No Sickle Cell Disease? No Arthritis? Yes Migraines? No Cataracts? No Glaucoma? No MRSA? No HIV? No TB? No Anxiety? Yes Depression? Yes Cancer? Yes Site: THYROID, BREAST More? 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 N/A Family History Family Hx Diabetes No CAD Yes Hypertension Yes Hyperlipidemia Yes Cancer Yes TB Yes Social History Smoking Hx Smoker: Current Every Day Smoker Tobacco: Yes Type Cigarettes Packs/day 1 1/2 - 2 Packs Alcohol Alcohol: No Review of Systems All Other Systems Reviewed and Negative Cardiovascular chest pain Musculoskeletal muscle pain (LEFT leg pain) Physical Exam Vital Signs Vital Signs Date Time Temp Pulse Resp B/P Pulse O2 O2 Flow FiO2 Ox Delivery Rate 12/14 1530 98.5 93 20 127/75 97 12/14 1353 78 20 125/77 100 12/14 1213 98.5 83 22 140/78 97 General Appearance normal appearance, WD/WN, no apparent distress Neck normal inspection, non-tender, supple, full range of motion Respiratory Status Yes: trachea midline, chest symmetrical, non tender chest. No: respiratory distress. Lung Sounds bilateral: normal breath sounds, lungs clear. 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 No Comment Upon reevaluation patient appears medically stable, clinically improving, minimally symptomatic. Advised patient to follow up with PCP early next week, if any recurrent symptoms. Results/Orders Laboratory Tests 12/14/16 1225: Sodium 140, Potassium 3.8, Chloride 104, Carbon Dioxide 30, BUN 7, Creatinine 0.8, Estimated Creat Clear 101, Estimated GFR (MDRD) 76, Glucose 99, Calcium 8.2 L, Total Bilirubin 0.2, AST 72 H, ALT 71, Alkaline Phosphatase 110, B- Natriuretic Peptide 6, Total Protein 7.1, Albumin 3.3 L, Globulin 3.8 H, Albumin/Globulin Ratio 0.9 L, D-Dimer < 100, WBC 10.1, RBC 4.62, Hgb 14.1, Hct 43.6, MCV 94.4, RDW 14.3, Plt Count 278, MPV 6.1 L, Gran % 59.5, Gran # 6.0, Lymphocytes % 34.8, Monocytes % 3.4, Eosinophils % 1.8, Basophils % 0.5, Lymphocytes # 3.5, Monocytes # 0.3, Eosinophils # 0.2, Basophils # 0.1, PUBS MCHC 32.5, MCH 30.6 Current Medication Orders Sig/Jairo Start time Last Medication Dose Route Stop Time Status Admin Iopamidol 75 ML ONCE ONE 12/14 1400 DC / IV 12/14 1401 1350 Sodium Chloride 20 ML ONCE ONE 12/14 1400 DC 05/ IV 12/14 1401 1350 Sodium Chloride 20 ML ONCE ONE 12/14 1400 DC 05/04 IV 12/14 1401 1350 Sodium Chloride 10 ML PRN PRN 12/14 1400 DC 05/ IV 12/14 1519 1350 Sodium Chloride 10 ML PRN PRN 12/14 1230 DCD IV 12/15 1225 Orders Procedure Date/time Status DIET-NOTHING BY MOUTH 12/[address] CHEST W/PE PROTOCOL REQ 12/14 1255 Complete VENOUS LOWER EXT LT 12/14 1254 Complete IV SALINE LOCK 12/14 1226 Active D-DIMER 12/14 1226 Complete CBC WITH AUTO DIFF 12/14 1226 Complete CHEM 12 PROFILE 12/14 1226 Complete BRAIN NATRIURETIC PEPTIDE 12/14 1226 Complete 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 of ischemic chgs, no ectopy, normal QRS, normal NV, no EKG for comparison, non-spec. ST/Twave chgs, ST elevation, ST depression, LBBB, RBBB, ectopy, abnormal Q waves XRAY/CT/US XRAY/CT/US 1 XRAY chest XR interpretation by reviewed by me, discussed w/radiologist Xray Results no infiltrates, normal heart size, normal lung inflation reid XRAY/CT/US [address] interpretation by discussed w/radiologist (PE protocol) CT Results abnormal Comment See radiologist report, no pulmonary embolus Ultrasound upper extremity (LEFT lower extremity) US Interpretation by discussed w/radiologist (venous Doppler) US results no DVT Departure Departure Time of Disposition 1504 Disposition DC Home or Self Care(routine) Clinical Impression Primary Impression: Chest pain Qualifiers: Chest pain type: unspecified Qualified Code: R07.9 - Chest pain, unspecified Secondary Impressions: Left leg pain Condition STABLE Referrals Ana Paula Trujillo (Family): Today after leaving ER Patient Instructions DI for Atypical Chest Pain, DI for Leg Pain Additional Instructions Please follow-up with your oncologist + with your PCP as previously scheduled. Discharge Counseling Counseled pt/family regarding diagnosis, test results, medications/RX, home care, follow up needs Comment Please follow-up with your oncologist + with your PCP as previously scheduled. ED Critical Care Critical Care No at 0112
[2016-12-14 15:30] VITALS: BP 127/75
== END 2016-12-14 15:31 | disposition home or self-care (01) ==
LOC: ER 12:05
PROVIDERS: Emergency Medicine
DX: R07.9 Chest pain, unspecified (principal); I10 Essential (primary) hypertension; J44.9 Chronic obstructive pulmonary disease, unspecified; K21.9 Gastro-esophageal reflux disease without esophagitis; F41.8 Other specified anxiety disorders; Z72.0 Tobacco use
CPT/HCPCS: Q9967

== ENCOUNTER 2016-12-28 07:28 | Day surgery (SDC) | payer MEDICAID ==
[~2016-12-28 07:28] MED LIST changes: +FUROSEMIDE 40MG40 M1 PO; +LEVOTHYROXIN0.175 MG PO; +SIMVASTATIN10 MG PO
[2016-12-28 08:02] LABS: HEMOGLOBIN 14.4 g/dL (12.2-16.2); LYMPH # 3.3 K/mm3 (0.7-4.5); LYMPH % 30.1 % (10-50.0)
[2016-12-28 08:05] LABS: BUN 8 mg/dL (7-18)
[2016-12-28 08:07] LABS: GFR (ESTIMATED) 76 ML/MIN (59-)
--- NOTE | 2016-12-28 10:31 | RADIOLOGY REPORT PS360 ---
CARDIAC CATHETERIZATION DATE OF CATHETERIZATION:12/28/2016 8:58 AM PROCEDURES: 1. Right heart catheterization 2. Left heart catheterization 3. Left ventriculogram 4. Selective coronary angiogram INDICATION FOR TEST: 1. Preoperative evaluation for lung biopsy 2. Angina pectoris class III 3. Risk factors for coronary artery disease 4. Pulmonary hypertension 5. Inability to complete noninvasive cardiac stress testing due to severe and profound dyspnea Informed consent was obtained prior to the procedure. COMPLICATIONS: None ESTIMATED BLOOD LOSS: Less than 10 ml. TECHNIQUE: One percent lidocaine was used to anesthetize the right groin. The right femoral artery was accessed via the Seldinger technique. A 4-Belarusian and 7 nicaraguan sheath was placed in the right femoral artery and vein respectfully. The JR-4 and JL-4 catheter was also used to perform left heart catheterization, left ventriculography and selective coronary angiogram. At the end of the procedure the patient was transferred to the post-op holding area in stable condition for arterial sheath removal. ANGIOGRAPHIC RESULTS: 1. The left main artery normal 2. The left anterior descending artery is normal 3. The circumflex artery is non dominant and is normal 4. The right coronary artery normal 5. The SINGLETON ventriculogram reveals normal The left ventricular end-diastolic pressure normal 10 mmHg HEMODYNAMICS: Right atrial pressure is 10 mm Hg. Pulmonary arterial pressure is 25/15 mm Hg. Pulmonary artery occlusion pressure is 12 mm Hg. SATURATIONS: RA is 71 %. PA is 69 %. IMPRESSION: 1. Normal coronary arteries 2. Normal ejection fraction 3. Normal left ventricular end-diastolic pressure 4. Very minimally elevated pulmonary artery pressures PLAN: 1. Patient is a low and acceptable risk from a cardiac standpoint to proceed with lung biopsy 2. Patient's symptoms of profound dyspnea appear to be mostly noncardiac and probably from deconditioning however I suspect she might have some mild improvement with low-dose diuretics
[2016-12-28 12:57] VITALS: BP 121/70
== END 2016-12-28 12:51 | disposition home or self-care (01) ==
LOC: CATHLAB 07:28
PROVIDERS: Internal Medicine
PROC: B2111ZZ Fluoroscopy of Multiple Coronary Arteries using Low Osmolar Contrast (ICD-10-PCS; 2016-12-28)
PROC: B2151ZZ Fluoroscopy of Left Heart using Low Osmolar Contrast (ICD-10-PCS; 2016-12-28)
PROC: 4A023N8 Measurement of Cardiac Sampling and Pressure, Bilateral, Percutaneous Approach (ICD-10-PCS; principal; 2016-12-28 08:30)
DX: R07.9 Chest pain, unspecified (principal); I27.2 Other secondary pulmonary hypertension; R06.02 Shortness of breath
CPT/HCPCS: C1725; C1769; C1894; J1644; Q9967

== ENCOUNTER → 2017-05-07 | Outpatient (CLI) | payer MEDICAID | LOC: SL 19:55 | DX: G47.33 Obstructive sleep apnea (adult) (pediatric) (principal); Z01.818 Encounter for other preprocedural examination ==

== ENCOUNTER → 2017-05-09 | Outpatient (CLI) | payer MEDICAID ==
[2017-05-09 15:39] LABS: URINE BILIRUBIN - DIPSTICK NEGATIVE (NEG); URINE BLOOD NEGATIVE (NEG)
[2017-05-09 15:53] LABS: HEMOGLOBIN 14.1 g/dL (12.2-16.2)
[2017-05-09 15:54] LABS: LYMPH # 2.8 K/mm3 (0.7-4.5); LYMPH % 24.6 % (10-50.0)
[2017-05-09 17:09] LABS: BUN 4 mg/dL (7-18)
[2017-05-09 18:05] LABS: GFR (ESTIMATED) 89 ML/MIN (59-)
== END ==
LOC: LAB 13:50
PROVIDERS: Surgery
DX: Z13.810 Encounter for screening for upper gastrointestinal disorder (principal); R10.2 Pelvic and perineal pain; Z01.818 Encounter for other preprocedural examination

== ENCOUNTER 2017-05-31 08:05 | Day surgery (SDC) | payer MEDICAID ==
[~2017-05-31] VITALS: Ht 152.4 cm; Wt 77.1 kg
--- NOTE | 2017-05-31 09:31 | Operative Note ---
Surgeon/Diagnoses Surgeon/Embedded Processor(s) Date of procedure: 05/31/17 Surgeon: MD Chetna Willis Diagnoses Pre-op diagnosis: Melena Bright red blood per rectum Lower abdominal pain Constipation Post-op diagnosis Same as preoperative diagnoses, with the addition of the following: Gastritis Hemorrhoidal tags Procedure Procedure Procedure: Esophagogastroduodenoscopy with biopsy Colonoscopy (aborted) Indications: TIMUR MCFARLANE is a 52 year-old Female with a history of melena, bright red blood per rectum, lower abdominal pain, and constipation. Findings: Gastroesophageal junction at 38 cm Moderate patchy gastritis Hemorrhoidal tags Bowel preparation exceedingly poor Colonoscopy aborted secondary to exceedingly poor bowel preparation Procedure Description: After informed consent was obtained, the patient was taken to the endoscopy suite. Monitored anesthesia care ensued after she was transferred to the LEFT lateral decubitus position. The gastroscope was advanced. The gastroesophageal junction was at 38 cm. The stomach was entered. Evaluation revealed moderate patchy gastritis. Retroflexion revealed inflammation. Antral biopsies were obtained. The pylorus was intubated. The duodenal mucosa appeared relatively normal. The gastroscope was carefully removed. Digital rectal exam revealed hemorrhoidal tags with no thrombosis or bleeding. The colonoscope was placed in position. Advancement through the rectum and distal sigmoid revealed an exceedingly poor bowel preparation. A large quantity of stool seen throughout and the decision was made to abort the procedure. The colonoscope was carefully removed and the patient was transferred to recovery. EBL (ml): 1 Anesthesia: Monitored anesthesia care Complications: Exceedingly poor bowel preparation (colonoscopy aborted) Specimens: Antral biopsy Disposition Disposition: Stable to recovery from where she will be discharged home. She will follow up in one week. The patient will require repeat colonoscopy with extended bowel preparation. at [id number]
[2017-05-31 10:18] VITALS: BP 113/72
== END 2017-05-31 09:45 | disposition home or self-care (01) ==
LOC: SDC 08:05
PROVIDERS: Surgery
PROC: 0DB78ZX Excision of Stomach, Pylorus, Via Natural or Artificial Opening Endoscopic, Diagnostic (ICD-10-PCS; 2017-05-31)
PROC: 0DJD8ZZ Inspection of Lower Intestinal Tract, Via Natural or Artificial Opening Endoscopic (ICD-10-PCS; principal; 2017-05-31 08:30)
DX: K92.1 Melena (principal); K62.5 Hemorrhage of anus and rectum; K29.70 Gastritis, unspecified, without bleeding

== ENCOUNTER → 2017-07-12 | Outpatient (CLI) | payer MEDICAID ==
--- NOTE | 2017-07-12 16:45 | RADIOLOGY REPORT PS360 ---
CT ABD PELVIS W/ CONTRAST CLINICAL INDICATION: Right lower quadrant and lower pelvic pain RLQ PAIN ORDERING PHYSICIAN: SAVANNAH MONTOYA APRN PATIENT AGE: 52 years COMPARISON: 11/25/2012 TECHNIQUE: Axial images obtained with sagittal and coronal reformats. PROCEDURE: Oral Contrast: Redicat IV Contrast: 75 mL's of Isovue-370 . FINDINGS: Lower thorax: Atelectatic or fibrotic changes are present in the left lung base. There is mild hepatomegaly with a maximum diameter of the liver at 26 cm previously at 24 cm. Cephalad to caudad measurement of the right hepatic lobe is 22 cm previously 19 cm. There has been a prior cholecystectomy. No ductal dilatation. No focal liver lesion. The spleen, adrenal glands, and pancreas are unremarkable. No renal calculi or hydronephrosis. No obstructing ureteral calculi. No intestinal structure in or free air. There is a moderate amount retained colonic feces no evidence of appendicitis or diverticulitis. No intestinal obstruction or free air. Status post hysterectomy. No acute bony anomalies IMPRESSION: 1. No evidence of appendicitis or other acute finding. 2. Moderate amount retained colonic feces. 3. Mild hepatomegaly
== END ==
LOC: RAD 07-09 10:30
DX: R10.31 Right lower quadrant pain (principal)
CPT/HCPCS: Q9967